=== PATIENT | male | born 1960 | race African-American/Black ===

== ENCOUNTER 2019-05-04 11:50 | Outpatient (CLI) | payer MEDICARE, SELFPAY ==
--- NOTE | ~2019-05-04 | XR_ITS ---
XR hip RT min 3V w AP pelvis DATE: 05/04/2019 12:17 INDICATION: Right hip pain for 5 days. No known injury. TECHNIQUE: AP pelvis. AP and lateral views of right hip COMPARISON: None FINDINGS: There is prominent calcification of the internal iliac arteries and branches bilaterally as well as prominent femoral artery calcifications. No pelvic or sacral fracture or bone destruction is evident. The pubic symphysis and sacroiliac joint s are intact. There is bilateral hip osteoarthritis, greater on the right. No fracture or dislocation, avascular ne crosis or bone destruction of the right hip is detected. IMPRESSION: Bilateral hip osteoarthritis, right greater than left Reviewed, dictated and finalized at location B.
== END 2019-05-04 11:51 | disposition home or self-care (01) ==
LOC: CHSIMG 11:56
PROVIDERS: PCP Internal Medicine; Visit Provider Internal Medicine
DX: M25.551 Pain in right hip (principal)
CPT/HCPCS: 73502

== ENCOUNTER 2019-08-01 10:02 | Outpatient (CLI) | payer SELFPAY | END 2019-08-01 10:03 | disposition home or self-care (01) | LOC: CHSOUTPT 10:11 | PROVIDERS: PCP Internal Medicine | DX: Z71.3 Dietary counseling and surveillance (principal) | CPT/HCPCS: 99199 ==

== ENCOUNTER 2019-10-12 08:59 | Outpatient (CLI) | payer MEDICARE, SELFPAY ==
[2019-10-12 09:12] LABS: Hematocrit 43.6 % (40.0-54.0); Hemoglobin 14.3 g/dL (14.0-18.0); Mean Corpuscular HGB Conc 32.8 g/dL (32.0-36.0); Mean Corpuscular Hemoglobin 29.2 pg (27.0-31.0); Mean Corpuscular Volume 89.2 fL (78.0-102.0); Mean Platelet Volume 9.4 fl (8.7-11.0); Platelet Count Result 166 K/mm3 (150-420); Red Blood Count 4.89 M/mm3 (4.70-6.10); White Blood Count 4.4 K/mm3 (4.8-10.8)
[2019-10-12 09:34] LABS: Albumin Level 4.2 g/dL (3.4-5.0); Anion Gap 9 mmol/L (8-16); Blood Urea Nitrogen 26 mg/dL (7-18); Calcium 9.3 mg/dL (8.5-10.1); Carbon Dioxide 24 mmol/L (21-32); Chloride 108 mmol/L (98-108); Estimated Glomerular Filt Rate 41; Glucose 75 mg/dL (70-99); Osmolality Calculated 295 mOsm/kg (285-295); Phosphorus 2.6 mg/dL (2.6-4.7); Potassium 4.4 mmol/L (3.5-5.1); Sodium 141 mmol/L (136-145)
[2019-10-12 09:47] LABS: Band Neutrophils Percent 0 % (0-6); Basophils Percent Manual 0 % (0-1); Eosinophils Percent Manual 0 % (1-6); Lymphocytes Absolute Manual 0.61 K/mm3 (1.1-4.5); Lymphocytes Percent Manual 14 % (18-44); Metamyelocytes Percent 2 %; Monocytes Absolute Manual 0.26 K/mm3 (0.1-0.90); Monocytes Percent Manual 6 % (3-9); Myelocytes Percent 3 %; Neutrophils Percent Manual 75 % (46-73); Platelet Estimate Adequate (Adequate); Total Cells Counted 100
[2019-10-12 09:52] LABS: Total Protein Urine Random 46.4 mg/dL (0.0-11.9)
[2019-10-15 21:26] LABS: Tacrolimus Prograf 4.5 mcg/L
== END 2019-10-12 09:00 | disposition home or self-care (01) ==
PROVIDERS: PCP Internal Medicine
DX: Z94.0 Kidney transplant status (principal); N39.0 Urinary tract infection, site not specified
CPT/HCPCS: 36415; 80069; 80197; 82570; 84156; 85025; 87799

== ENCOUNTER 2019-10-26 08:15 | Outpatient (CLI) | payer MEDICARE, SELFPAY ==
[2019-10-26 08:26] LABS: Hematocrit 45.6 % (40.0-54.0); Hemoglobin 14.8 g/dL (14.0-18.0); Mean Corpuscular HGB Conc 32.5 g/dL (32.0-36.0); Mean Corpuscular Hemoglobin 28.9 pg (27.0-31.0); Mean Corpuscular Volume 89.1 fL (78.0-102.0); Mean Platelet Volume 9.3 fl (8.7-11.0); Platelet Count Result 150 K/mm3 (150-420); Red Blood Count 5.12 M/mm3 (4.70-6.10); Red Cell Distribution Width 14.1 % (11.6-14.4); White Blood Count 4.3 K/mm3 (4.8-10.8)
[2019-10-26 08:47] LABS: Creatinine Urine 143.13 mg/dL (40-278); Total Protein Urine Random 33.8 mg/dL (0.0-11.9)
[2019-10-26 08:51] LABS: Band Neutrophils Percent 5 % (0-6); Basophils Percent Manual 0 % (0-1); Eosinophils Absolute Manual 0.04 K/mm3 (0.02-0.5); Eosinophils Percent Manual 1 % (1-6); Lymphocytes Absolute Manual 0.43 K/mm3 (1.1-4.5); Lymphocytes Percent Manual 10 % (18-44); Metamyelocytes Percent 3 %; Monocytes Percent Manual 7 % (3-9); Neutrophils Absolute Manual 3.39 K/mm3 (1.3-6.7); Neutrophils Percent Manual 74 % (46-73); Total Cells Counted 100
[2019-10-26 08:52] LABS: Platelet Estimate Adequate (Adequate)
[2019-10-26 08:57] LABS: Albumin Level 4.5 g/dL (3.4-5.0); Anion Gap 11 mmol/L (8-16); Blood Urea Nitrogen 30 mg/dL (7-18); Calcium 9.5 mg/dL (8.5-10.1); Carbon Dioxide 25 mmol/L (21-32); Chloride 107 mmol/L (98-108); Estimated Glomerular Filt Rate 38; Glucose 85 mg/dL (70-99); Osmolality Calculated 301 mOsm/kg (285-295); Phosphorus 2.5 mg/dL (2.6-4.7); Potassium 4.2 mmol/L (3.5-5.1); Sodium 143 mmol/L (136-145)
[2019-10-30 06:42] LABS: Tacrolimus Prograf 6.4 mcg/L
== END 2019-10-26 08:16 | disposition home or self-care (01) ==
LOC: CHSLAB 08:17
PROVIDERS: PCP Internal Medicine
DX: Z94.0 Kidney transplant status (principal); N39.0 Urinary tract infection, site not specified
CPT/HCPCS: 36415; 80069; 80197; 82570; 84156; 85025

== ENCOUNTER 2019-11-09 08:46 | Outpatient (CLI) | payer MEDICARE, SELFPAY ==
[2019-11-09 09:07] LABS: Hematocrit 45.6 % (40.0-54.0); Hemoglobin 14.7 g/dL (14.0-18.0); Mean Corpuscular HGB Conc 32.2 g/dL (32.0-36.0); Mean Corpuscular Hemoglobin 28.4 pg (27.0-31.0); Mean Platelet Volume 9.9 fl (8.7-11.0); Platelet Count Result 163 K/mm3 (150-420); Red Blood Count 5.18 M/mm3 (4.70-6.10); Red Cell Distribution Width 14.1 % (11.6-14.4); White Blood Count 3.8 K/mm3 (4.8-10.8)
[2019-11-09 09:39] LABS: Band Neutrophils Percent 0 % (0-6); Basophils Absolute Manual 0.03 K/mm3 (0-0.1); Basophils Percent Manual 1 % (0-1); Eosinophils Absolute Manual 0.03 K/mm3 (0.02-0.5); Eosinophils Percent Manual 1 % (1-6); Hemoglobin A1C 5.9 % (<5.7); Lymphocytes Absolute Manual 0.38 K/mm3 (1.1-4.5); Lymphocytes Percent Manual 10 % (18-44); Metamyelocytes Percent 0 %; Monocytes Absolute Manual 0.22 K/mm3 (0.1-0.90); Monocytes Percent Manual 6 % (3-9); Neutrophils Percent Manual 79 % (46-73); Total Cells Counted 100
[2019-11-09 09:40] LABS: Myelocytes Percent 3 %; Platelet Estimate Adequate (Adequate)
[2019-11-09 10:26] LABS: Alanine Aminotransferase 33 U/L (16-63); Albumin Level 4.7 g/dL (3.4-5.0); Alkaline Phosphatase 95 U/L (46-116); Anion Gap 9 mmol/L (8-16); Aspartate Amino Transferase 17 U/L (15-37); Bilirubin Direct 0.3 mg/dL (0-0.2); Bilirubin,Total 1.4 mg/dL (0.00-1.00); Blood Urea Nitrogen 24 mg/dL (7-18); Calcium 9.5 mg/dL (8.5-10.1); Carbon Dioxide 24 mmol/L (21-32); Chloride 108 mmol/L (98-108); Cholesterol 124 mg/dL (0-200); Estimated Glomerular Filt Rate 44; Glucose 86 mg/dL (70-99); HDL Direct 45 mg/dL (40-60); LDL Cholesterol Calculated 58 mg/dL (<130); Osmolality Calculated 295 mOsm/kg (285-295); Phosphorus 2.5 mg/dL (2.6-4.7); Potassium 4.1 mmol/L (3.5-5.1); Sodium 141 mmol/L (136-145); Triglycerides 104 mg/dL (0-150)
[2019-11-12 07:59] LABS: BK Virus Specimen Source Plasma
[2019-11-12 08:20] LABS: Tacrolimus Prograf 8.2 mcg/L
== END 2019-11-09 08:47 | disposition home or self-care (01) ==
LOC: CHSLAB 08:50
PROVIDERS: PCP Internal Medicine
DX: Z94.0 Kidney transplant status (principal); E10.65 Type 1 diabetes mellitus with hyperglycemia; E78.2 Mixed hyperlipidemia; N39.0 Urinary tract infection, site not specified
CPT/HCPCS: 36415; 80053; 80061; 80197; 82248; 82570; 83036; 84100; 84156; 85025; 87799

== ENCOUNTER 2019-11-23 08:07 | Outpatient (CLI) | payer MEDICARE, SELFPAY ==
[2019-11-23 08:55] LABS: Hemoglobin A1C 6.2 % (<5.7)
[2019-11-23 09:43] LABS: Alanine Aminotransferase 29 U/L (16-63); Albumin Level 4.4 g/dL (3.4-5.0); Alkaline Phosphatase 85 U/L (46-116); Anion Gap 10 mmol/L (8-16); Aspartate Amino Transferase 14 U/L (15-37); Bilirubin,Total 1.2 mg/dL (0.00-1.00); Blood Urea Nitrogen 29 mg/dL (7-18); Calcium 9.4 mg/dL (8.5-10.1); Carbon Dioxide 24 mmol/L (21-32); Chloride 107 mmol/L (98-108); Cholesterol 126 mg/dL (0-200); Estimated Glomerular Filt Rate 44; Glucose 76 mg/dL (70-99); HDL Direct 54 mg/dL (40-60); LDL Cholesterol Calculated 58 mg/dL (<130); Osmolality Calculated 296 mOsm/kg (285-295); Phosphorus 2.8 mg/dL (2.6-4.7); Potassium 4.2 mmol/L (3.5-5.1); Sodium 141 mmol/L (136-145); Total Protein 6.7 g/dL (6.4-8.2); Triglycerides 70 mg/dL (0-150)
[2019-11-23 14:38] LABS: Hematocrit 43.4 % (40.0-54.0); Mean Corpuscular HGB Conc 32.3 g/dL (32.0-36.0); Mean Corpuscular Hemoglobin 28.9 pg (27.0-31.0); Mean Corpuscular Volume 89.7 fL (78.0-102.0); Mean Platelet Volume 10.2 fl (8.7-11.0); Platelet Count Result 183 K/mm3 (150-420); Red Blood Count 4.84 M/mm3 (4.70-6.10); Red Cell Distribution Width 14.3 % (11.6-14.4); White Blood Count 4.3 K/mm3 (4.8-10.8)
[2019-11-23 14:58] LABS: Neutrophils Percent Manual 81 % (46-73); Total Cells Counted 100
[2019-11-23 14:59] LABS: Band Neutrophils Percent 3 % (0-6); Basophils Percent Manual 0 % (0-1); Eosinophils Percent Manual 0 % (1-6); Lymphocytes Absolute Manual 0.38 K/mm3 (1.1-4.5); Lymphocytes Percent Manual 9 % (18-44); Monocytes Percent Manual 7 % (3-9); Neutrophils Absolute Manual 3.61 K/mm3 (1.3-6.7); Nucleated Red Blood Cells 5 %; Platelet Estimate Adequate (Adequate)
== END 2019-11-23 08:08 | disposition home or self-care (01) ==
LOC: CHSLAB 08:11
PROVIDERS: PCP Internal Medicine
DX: Z94.0 Kidney transplant status (principal); E78.2 Mixed hyperlipidemia; E10.65 Type 1 diabetes mellitus with hyperglycemia
CPT/HCPCS: 36415; 80053; 80061; 83036; 84100; 85025

== ENCOUNTER 2019-12-07 08:34 | Outpatient (CLI) | payer MEDICARE, SELFPAY ==
[2019-12-07 08:49] LABS: Hematocrit 42.1 % (40.0-54.0); Hemoglobin 13.6 g/dL (14.0-18.0); Mean Corpuscular HGB Conc 32.3 g/dL (32.0-36.0); Mean Corpuscular Hemoglobin 28.8 pg (27.0-31.0); Mean Corpuscular Volume 89.2 fL (78.0-102.0); Mean Platelet Volume 9.4 fl (8.7-11.0); Platelet Count Result 152 K/mm3 (150-420); Red Blood Count 4.72 M/mm3 (4.70-6.10); Red Cell Distribution Width 14.2 % (11.6-14.4); White Blood Count 4.2 K/mm3 (4.8-10.8)
[2019-12-07 09:11] LABS: Band Neutrophils Percent 0 % (0-6); Basophils Percent Manual 0 % (0-1); Eosinophils Percent Manual 0 % (1-6); Lymphocytes Absolute Manual 0.84 K/mm3 (1.1-4.5); Lymphocytes Percent Manual 20 % (18-44); Monocytes Absolute Manual 0.25 K/mm3 (0.1-0.90); Monocytes Percent Manual 6 % (3-9); Myelocytes Percent 3 %; Neutrophils Absolute Manual 2.98 K/mm3 (1.3-6.7); Neutrophils Percent Manual 71 % (46-73); Nucleated Red Blood Cells 2 %; Total Cells Counted 100
[2019-12-07 09:14] LABS: Platelet Estimate Adequate (Adequate)
[2019-12-07 09:20] LABS: Creatinine Urine 101.25 mg/dL (40-278); Total Protein Urine Random 24.3 mg/dL (0.0-11.9)
[2019-12-07 09:33] LABS: Albumin Level 4.3 g/dL (3.4-5.0); Anion Gap 10 mmol/L (8-16); Blood Urea Nitrogen 32 mg/dL (7-18); Calcium 9.5 mg/dL (8.5-10.1); Carbon Dioxide 24 mmol/L (21-32); Chloride 107 mmol/L (98-108); Estimated Glomerular Filt Rate 42; Glucose 97 mg/dL (70-99); Osmolality Calculated 298 mOsm/kg (285-295); Phosphorus 2.3 mg/dL (2.6-4.7); Potassium 4.2 mmol/L (3.5-5.1); Sodium 141 mmol/L (136-145)
[2019-12-10 18:02] LABS: BK Virus Specimen Source Plasma
== END 2019-12-07 08:35 | disposition home or self-care (01) ==
PROVIDERS: PCP Internal Medicine
DX: Z94.0 Kidney transplant status (principal); E78.2 Mixed hyperlipidemia; E10.65 Type 1 diabetes mellitus with hyperglycemia; Z79.899 Other long term (current) drug therapy
CPT/HCPCS: 36415; 80069; 80197; 82570; 84156; 85025; 87799

== ENCOUNTER 2019-12-21 08:49 | Outpatient (CLI) | payer MEDICARE, SELFPAY ==
[2019-12-21 09:00] LABS: Hematocrit 40.3 % (40.0-54.0); Hemoglobin 12.8 g/dL (14.0-18.0); Mean Corpuscular HGB Conc 31.8 g/dL (32.0-36.0); Mean Corpuscular Hemoglobin 28.8 pg (27.0-31.0); Mean Corpuscular Volume 90.8 fL (78.0-102.0); Mean Platelet Volume 9.4 fl (8.7-11.0); Platelet Count Result 141 K/mm3 (150-420); Red Blood Count 4.44 M/mm3 (4.70-6.10); Red Cell Distribution Width 14.4 % (11.6-14.4); White Blood Count 4.2 K/mm3 (4.8-10.8)
[2019-12-21 09:38] LABS: Alanine Aminotransferase 37 U/L (16-63); Albumin Level 4.2 g/dL (3.4-5.0); Alkaline Phosphatase 76 U/L (46-116); Anion Gap 11 mmol/L (8-16); Aspartate Amino Transferase 13 U/L (15-37); Blood Urea Nitrogen 29 mg/dL (7-18); Calcium 9.5 mg/dL (8.5-10.1); Carbon Dioxide 23 mmol/L (21-32); Chloride 108 mmol/L (98-108); Estimated Glomerular Filt Rate 45; Glucose 78 mg/dL (70-99); Osmolality Calculated 298 mOsm/kg (285-295); Potassium 4.4 mmol/L (3.5-5.1); Sodium 142 mmol/L (136-145); Total Protein 6.5 g/dL (6.4-8.2)
[2019-12-21 09:56] LABS: Band Neutrophils Percent 0 % (0-6); Basophils Percent Manual 0 % (0-1); Eosinophils Percent Manual 0 % (1-6); Lymphocytes Percent Manual 12 % (18-44); Metamyelocytes Percent 2 %; Monocytes Absolute Manual 0.25 K/mm3 (0.1-0.90); Monocytes Percent Manual 6 % (3-9); Myelocytes Percent 2 %; Neutrophils Absolute Manual 3.27 K/mm3 (1.3-6.7); Neutrophils Percent Manual 78 % (46-73); Total Cells Counted 100
[2019-12-21 09:57] LABS: Platelet Estimate Adequate (Adequate)
[2019-12-23 16:07] LABS: Tacrolimus Prograf 6.5 mcg/L
== END 2019-12-21 08:50 | disposition home or self-care (01) ==
PROVIDERS: PCP Internal Medicine
DX: Z94.0 Kidney transplant status (principal); E10.65 Type 1 diabetes mellitus with hyperglycemia; E78.2 Mixed hyperlipidemia; Z79.899 Other long term (current) drug therapy
CPT/HCPCS: 36415; 80053; 80197; 85025

== ENCOUNTER 2020-01-04 08:25 | Outpatient (CLI) | payer MEDICARE, SELFPAY ==
[2020-01-04 08:45] LABS: Hematocrit 39.2 % (40.0-54.0); Hemoglobin 12.4 g/dL (14.0-18.0); Mean Corpuscular HGB Conc 31.6 g/dL (32.0-36.0); Mean Corpuscular Hemoglobin 28.7 pg (27.0-31.0); Mean Corpuscular Volume 90.7 fL (78.0-102.0); Mean Platelet Volume 10.1 fl (8.7-11.0); Platelet Count Result 167 K/mm3 (150-420); Red Blood Count 4.32 M/mm3 (4.70-6.10); Red Cell Distribution Width 14.6 % (11.6-14.4); White Blood Count 4.2 K/mm3 (4.8-10.8)
[2020-01-04 09:28] LABS: Albumin Level 4.4 g/dL (3.4-5.0); Anion Gap 11 mmol/L (8-16); Blood Urea Nitrogen 26 mg/dL (7-18); Calcium 9.3 mg/dL (8.5-10.1); Carbon Dioxide 23 mmol/L (21-32); Chloride 107 mmol/L (98-108); Estimated Glomerular Filt Rate 42; Glucose 91 mg/dL (70-99); Osmolality Calculated 296 mOsm/kg (285-295); Phosphorus 2.8 mg/dL (2.6-4.7); Potassium 4.3 mmol/L (3.5-5.1); Sodium 141 mmol/L (136-145)
[2020-01-04 09:29] LABS: Band Neutrophils Percent 0 % (0-6); Basophils Absolute Manual 0.04 K/mm3 (0-0.1); Basophils Percent Manual 1 % (0-1); Eosinophils Absolute Manual 0.04 K/mm3 (0.02-0.5); Eosinophils Percent Manual 1 % (1-6); Lymphocytes Absolute Manual 0.37 K/mm3 (1.1-4.5); Lymphocytes Percent Manual 9 % (18-44); Metamyelocytes Percent 0 %; Monocytes Absolute Manual 0.21 K/mm3 (0.1-0.90); Monocytes Percent Manual 5 % (3-9); Myelocytes Percent 2 %; Neutrophils Absolute Manual 3.48 K/mm3 (1.3-6.7); Neutrophils Percent Manual 83 % (46-73); Platelet Estimate Adequate (Adequate); Total Cells Counted 100
[2020-01-04 09:58] LABS: Total Protein Urine Random 23.8 mg/dL (0.0-11.9)
[2020-01-08 11:03] LABS: Tacrolimus Prograf 9.9 mcg/L
[2020-01-08 12:10] LABS: BK Virus Specimen Source Whole Blood
== END 2020-01-04 08:26 | disposition home or self-care (01) ==
PROVIDERS: PCP Internal Medicine
DX: Z94.0 Kidney transplant status (principal); E10.65 Type 1 diabetes mellitus with hyperglycemia; E78.2 Mixed hyperlipidemia; N39.0 Urinary tract infection, site not specified; Z79.899 Other long term (current) drug therapy
CPT/HCPCS: 36415; 80069; 80197; 82570; 84156; 85025; 87799

== ENCOUNTER 2020-01-18 08:43 | Outpatient (CLI) | payer MEDICARE, SELFPAY ==
[2020-01-18 08:56] LABS: Hematocrit 39.3 % (40.0-54.0); Hemoglobin 12.7 g/dL (14.0-18.0); Mean Corpuscular HGB Conc 32.3 g/dL (32.0-36.0); Mean Corpuscular Hemoglobin 29.2 pg (27.0-31.0); Mean Corpuscular Volume 90.3 fL (78.0-102.0); Platelet Count Result 147 K/mm3 (150-420); Red Blood Count 4.35 M/mm3 (4.70-6.10); Red Cell Distribution Width 14.7 % (11.6-14.4); White Blood Count 4.7 K/mm3 (4.8-10.8)
[2020-01-18 09:16] LABS: Band Neutrophils Percent 0 % (0-6); Eosinophils Percent Manual 0 % (1-6); Lymphocytes Absolute Manual 0.47 K/mm3 (1.1-4.5); Lymphocytes Percent Manual 10 % (18-44); Monocytes Absolute Manual 0.23 K/mm3 (0.1-0.90); Monocytes Percent Manual 5 % (3-9); Neutrophils Absolute Manual 3.99 K/mm3 (1.3-6.7); Neutrophils Percent Manual 85 % (46-73); Total Cells Counted 100
[2020-01-18 09:17] LABS: Platelet Estimate Adequate (Adequate)
[2020-01-18 10:41] LABS: Albumin Level 4.4 g/dL (3.4-5.0); Anion Gap 12 mmol/L (8-16); Blood Urea Nitrogen 31 mg/dL (7-18); Calcium 9.6 mg/dL (8.5-10.1); Carbon Dioxide 23 mmol/L (21-32); Chloride 107 mmol/L (98-108); Estimated Glomerular Filt Rate 44; Glucose 104 mg/dL (70-99); Osmolality Calculated 300 mOsm/kg (285-295); Phosphorus 2.6 mg/dL (2.6-4.7); Potassium 4.4 mmol/L (3.5-5.1); Sodium 142 mmol/L (136-145)
[2020-01-21 06:59] LABS: Tacrolimus Prograf 7.7 mcg/L
== END 2020-01-18 08:44 | disposition home or self-care (01) ==
LOC: CHSLAB 08:46
PROVIDERS: PCP Internal Medicine
DX: Z94.0 Kidney transplant status (principal); E78.2 Mixed hyperlipidemia; E10.65 Type 1 diabetes mellitus with hyperglycemia; Z79.899 Other long term (current) drug therapy
CPT/HCPCS: 36415; 80069; 80197; 85025

== ENCOUNTER 2020-02-01 08:13 | Outpatient (CLI) | payer MEDICARE, SELFPAY ==
[2020-02-01 08:29] LABS: Basophils Absolute Auto 0.01 K/mm3 (0.00-0.10); Basophils Percent Auto 0.2 % (0.0-1.0); Eosinophils Absolute Auto 0.01 K/mm3 (0.02-0.50); Eosinophils Percent Auto 0.2 % (1.0-6.0); Hematocrit 40.2 % (40.0-54.0); Immature Granulocyte Absolute 0.11 K/mm3 (0.00-0.00); Immature Granulocyte Percent A 1.9 % (0.0-0.0); Lymphocytes Absolute Auto 0.49 K/mm3 (1.10-4.50); Lymphocytes Percent Auto 8.4 % (18.0-42.0); Mean Corpuscular HGB Conc 32.3 g/dL (32.0-36.0); Mean Corpuscular Hemoglobin 29.2 pg (27.0-31.0); Mean Corpuscular Volume 90.3 fL (78.0-102.0); Mean Platelet Volume 9.4 fl (8.7-11.0); Monocytes Percent Auto 6.8 % (2.0-11.0); Neutrophils Absolute Auto 4.8 K/mm3 (1.7-7.2); Neutrophils Percent Auto 82.5 % (50.0-70.0); Platelet Count Result 159 K/mm3 (150-420); Red Blood Count 4.45 M/mm3 (4.70-6.10); Red Cell Distribution Width 14.6 % (11.6-14.4); White Blood Count 5.8 K/mm3 (4.8-10.8)
[2020-02-01 08:41] LABS: Creatinine Urine 86.72 mg/dL (40-278); Total Protein Urine Random 19.4 mg/dL (0.0-11.9); Ur Ttl Prot Creatinine Ratio 0.22 mg/mg (0-0.20)
[2020-02-01 09:29] LABS: Albumin Level 4.4 g/dL (3.4-5.0); Anion Gap 8 mmol/L (8-16); Blood Urea Nitrogen 30 mg/dL (7-18); Calcium 9.5 mg/dL (8.5-10.1); Carbon Dioxide 25 mmol/L (21-32); Chloride 106 mmol/L (98-108); Estimated Glomerular Filt Rate 41; Glucose 77 mg/dL (70-99); Osmolality Calculated 293 mOsm/kg (285-295); Phosphorus 2.9 mg/dL (2.6-4.7); Potassium 4.3 mmol/L (3.5-5.1); Sodium 139 mmol/L (136-145)
[2020-02-04 07:13] LABS: BK Virus Specimen Source Whole Blood
[2020-02-04 08:28] LABS: Tacrolimus Prograf 6.9 mcg/L
== END 2020-02-01 08:14 | disposition home or self-care (01) ==
LOC: CHSLAB 08:14
PROVIDERS: PCP Internal Medicine
DX: Z94.0 Kidney transplant status (principal); E10.65 Type 1 diabetes mellitus with hyperglycemia; E78.2 Mixed hyperlipidemia; Z79.899 Other long term (current) drug therapy
CPT/HCPCS: 36415; 80069; 80197; 82570; 84156; 85025; 87799

== ENCOUNTER 2020-02-15 08:18 | Outpatient (CLI) | payer MEDICARE, SELFPAY ==
[2020-02-15 08:31] LABS: Basophils Absolute Auto 0.01 K/mm3 (0.00-0.10); Basophils Percent Auto 0.2 % (0.0-1.0); Eosinophils Absolute Auto 0.02 K/mm3 (0.02-0.50); Eosinophils Percent Auto 0.3 % (1.0-6.0); Hematocrit 40.3 % (40.0-54.0); Immature Granulocyte Absolute 0.08 K/mm3 (0.00-0.00); Immature Granulocyte Percent A 1.4 % (0.0-0.0); Lymphocytes Absolute Auto 0.45 K/mm3 (1.10-4.50); Lymphocytes Percent Auto 7.7 % (18.0-42.0); Mean Corpuscular HGB Conc 32.3 g/dL (32.0-36.0); Mean Corpuscular Hemoglobin 28.8 pg (27.0-31.0); Mean Corpuscular Volume 89.4 fL (78.0-102.0); Mean Platelet Volume 9.3 fl (8.7-11.0); Monocytes Absolute Auto 0.37 K/mm3 (0.10-0.90); Monocytes Percent Auto 6.3 % (2.0-11.0); Neutrophils Percent Auto 84.1 % (50.0-70.0); Platelet Count Result 154 K/mm3 (150-420); Red Blood Count 4.51 M/mm3 (4.70-6.10); Red Cell Distribution Width 14.6 % (11.6-14.4); White Blood Count 5.9 K/mm3 (4.8-10.8)
[2020-02-15 09:08] LABS: Albumin Level 4.5 g/dL (3.4-5.0); Anion Gap 10 mmol/L (8-16); Blood Urea Nitrogen 26 mg/dL (7-18); Calcium 9.6 mg/dL (8.5-10.1); Carbon Dioxide 24 mmol/L (21-32); Chloride 104 mmol/L (98-108); Estimated Glomerular Filt Rate 40; Glucose 82 mg/dL (70-99); Osmolality Calculated 289 mOsm/kg (285-295); Phosphorus 3.1 mg/dL (2.6-4.7); Potassium 4.1 mmol/L (3.5-5.1); Sodium 138 mmol/L (136-145)
[2020-02-19 07:38] LABS: Tacrolimus Prograf 7.7 mcg/L
== END 2020-02-15 08:19 | disposition home or self-care (01) ==
LOC: CHSLAB 08:20
PROVIDERS: PCP Internal Medicine
DX: Z94.0 Kidney transplant status (principal); E10.65 Type 1 diabetes mellitus with hyperglycemia; Z79.899 Other long term (current) drug therapy; N39.0 Urinary tract infection, site not specified; E78.2 Mixed hyperlipidemia
CPT/HCPCS: 36415; 80069; 80197; 85025

== ENCOUNTER 2020-02-29 08:30 | Outpatient (CLI) | payer MEDICARE, SELFPAY ==
[2020-02-29 08:58] LABS: Eosinophils Absolute Auto 0.02 K/mm3 (0.02-0.50); Eosinophils Percent Auto 0.4 % (1.0-6.0); Hematocrit 40.3 % (40.0-54.0); Hemoglobin 13.1 g/dL (14.0-18.0); Immature Granulocyte Absolute 0.09 K/mm3 (0.00-0.00); Immature Granulocyte Percent A 1.6 % (0.0-0.0); Lymphocytes Absolute Auto 0.43 K/mm3 (1.10-4.50); Lymphocytes Percent Auto 7.9 % (18.0-42.0); Mean Corpuscular HGB Conc 32.5 g/dL (32.0-36.0); Mean Corpuscular Hemoglobin 28.7 pg (27.0-31.0); Mean Corpuscular Volume 88.4 fL (78.0-102.0); Mean Platelet Volume 9.3 fl (8.7-11.0); Monocytes Percent Auto 5.5 % (2.0-11.0); Neutrophils Absolute Auto 4.6 K/mm3 (1.7-7.2); Neutrophils Percent Auto 84.6 % (50.0-70.0); Platelet Count Result 147 K/mm3 (150-420); Red Blood Count 4.56 M/mm3 (4.70-6.10); Red Cell Distribution Width 14.6 % (11.6-14.4); White Blood Count 5.5 K/mm3 (4.8-10.8)
[2020-02-29 09:02] LABS: Creatinine Urine 97.59 mg/dL (40-278); Total Protein Urine Random 27.6 mg/dL (0.0-11.9); Ur Ttl Prot Creatinine Ratio 0.28 mg/mg (0-0.20)
[2020-02-29 09:18] LABS: Hemoglobin A1C 5.8 % (<5.7)
[2020-02-29 09:37] LABS: Alanine Aminotransferase 21 U/L (16-63); Albumin Level 4.5 g/dL (3.4-5.0); Alkaline Phosphatase 74 U/L (46-116); Anion Gap 10 mmol/L (8-16); Aspartate Amino Transferase 16 U/L (15-37); Bilirubin,Total 0.9 mg/dL (0.00-1.00); Blood Urea Nitrogen 23 mg/dL (7-18); Calcium 9.5 mg/dL (8.5-10.1); Carbon Dioxide 24 mmol/L (21-32); Chloride 104 mmol/L (98-108); Cholesterol 134 mg/dL (0-200); Estimated Glomerular Filt Rate 46; Glucose 95 mg/dL (70-99); HDL Direct 52 mg/dL (40-60); LDL Cholesterol Calculated 55 mg/dL (<130); Osmolality Calculated 289 mOsm/kg (285-295); Phosphorus 2.8 mg/dL (2.6-4.7); Sodium 138 mmol/L (136-145); Total Protein 6.9 g/dL (6.4-8.2); Triglycerides 135 mg/dL (0-150); Uric Acid 3.7 mg/dL (3.5-7.2)
[2020-02-29 09:40] LABS: CRP < 0.5 mg/dL (0.0-0.9)
[2020-02-29 09:57] LABS: Erythrocyte Sedimentation Rate 2 mm/hr (0-20)
[2020-03-02 10:53] LABS: BK Virus Specimen Source Whole Blood
[2020-03-02 19:58] LABS: Tacrolimus Prograf 4.9 mcg/L
[2020-03-05 14:12] LABS: Complement C3 97 mg/dL (82-185)
== END 2020-02-29 08:31 | disposition home or self-care (01) ==
PROVIDERS: PCP Internal Medicine
DX: Z94.0 Kidney transplant status (principal); E78.2 Mixed hyperlipidemia; E10.65 Type 1 diabetes mellitus with hyperglycemia; M32.9 Systemic lupus erythematosus, unspecified; M10.9 Gout, unspecified; Z79.899 Other long term (current) drug therapy; G80.9 Cerebral palsy, unspecified
CPT/HCPCS: 36415; 80053; 80061; 80069; 80197; 82570; 83036; 84156; 84550; 85025; 85652; 86140; 86160; 86225; 87799

== ENCOUNTER 2020-03-14 08:48 | Outpatient (CLI) | payer MEDICARE, SELFPAY ==
[2020-03-14 08:59] LABS: Basophils Absolute Auto 0.02 K/mm3 (0.00-0.10); Basophils Percent Auto 0.4 % (0.0-1.0); Eosinophils Absolute Auto 0.01 K/mm3 (0.02-0.50); Eosinophils Percent Auto 0.2 % (1.0-6.0); Hematocrit 41.2 % (40.0-54.0); Hemoglobin 13.4 g/dL (14.0-18.0); Immature Granulocyte Percent A 1.8 % (0.0-0.0); Mean Corpuscular HGB Conc 32.5 g/dL (32.0-36.0); Mean Corpuscular Hemoglobin 28.9 pg (27.0-31.0); Mean Platelet Volume 8.9 fl (8.7-11.0); Monocytes Percent Auto 7.2 % (2.0-11.0); Neutrophils Absolute Auto 4.5 K/mm3 (1.7-7.2); Neutrophils Percent Auto 81.4 % (50.0-70.0); Platelet Count Result 152 K/mm3 (150-420); Red Blood Count 4.63 M/mm3 (4.70-6.10); Red Cell Distribution Width 14.5 % (11.6-14.4); White Blood Count 5.5 K/mm3 (4.8-10.8)
[2020-03-14 09:24] LABS: Albumin Level 4.4 g/dL (3.4-5.0); Anion Gap 11 mmol/L (8-16); Blood Urea Nitrogen 24 mg/dL (7-18); Calcium 9.5 mg/dL (8.5-10.1); Carbon Dioxide 25 mmol/L (21-32); Chloride 104 mmol/L (98-108); Estimated Glomerular Filt Rate 44; Glucose 100 mg/dL (70-99); Osmolality Calculated 294 mOsm/kg (285-295); Phosphorus 2.7 mg/dL (2.6-4.7); Potassium 4.1 mmol/L (3.5-5.1); Sodium 140 mmol/L (136-145)
[2020-03-16 17:36] LABS: Tacrolimus Prograf 9.2 mcg/L
== END 2020-03-14 08:49 | disposition home or self-care (01) ==
LOC: CHSLAB 08:50
PROVIDERS: PCP Internal Medicine; Visit Provider Internal Medicine
DX: Z94.0 Kidney transplant status (principal); E10.65 Type 1 diabetes mellitus with hyperglycemia; E78.2 Mixed hyperlipidemia; Z79.899 Other long term (current) drug therapy
CPT/HCPCS: 36415; 80069; 80197; 85025

== ENCOUNTER 2020-03-28 08:19 | Outpatient (CLI) | payer MEDICARE, SELFPAY ==
[2020-03-28 08:39] LABS: Basophils Absolute Auto 0.01 K/mm3 (0.00-0.10); Basophils Percent Auto 0.2 % (0.0-1.0); Eosinophils Absolute Auto 0.01 K/mm3 (0.02-0.50); Eosinophils Percent Auto 0.2 % (1.0-6.0); Hematocrit 41.8 % (40.0-54.0); Hemoglobin 13.9 g/dL (14.0-18.0); Immature Granulocyte Absolute 0.16 K/mm3 (0.00-0.00); Immature Granulocyte Percent A 2.8 % (0.0-0.0); Lymphocytes Absolute Auto 0.46 K/mm3 (1.10-4.50); Mean Corpuscular HGB Conc 33.3 g/dL (32.0-36.0); Mean Corpuscular Hemoglobin 29.3 pg (27.0-31.0); Mean Platelet Volume 9.2 fl (8.7-11.0); Monocytes Absolute Auto 0.43 K/mm3 (0.10-0.90); Monocytes Percent Auto 7.5 % (2.0-11.0); Neutrophils Absolute Auto 4.7 K/mm3 (1.7-7.2); Neutrophils Percent Auto 81.3 % (50.0-70.0); Platelet Count Result 164 K/mm3 (150-420); Red Blood Count 4.75 M/mm3 (4.70-6.10); Red Cell Distribution Width 14.5 % (11.6-14.4); White Blood Count 5.8 K/mm3 (4.8-10.8)
[2020-03-28 09:24] LABS: Creatinine Urine 128.06 mg/dL (40-278); MALB Creatinine Ratio 44.5 mg/g (0-30); Microalbumin Urine Random 57.1 mg/L
[2020-03-28 09:48] LABS: Albumin Level 4.5 g/dL (3.4-5.0); Anion Gap 11 mmol/L (8-16); Blood Urea Nitrogen 28 mg/dL (7-18); Calcium 9.6 mg/dL (8.5-10.1); Carbon Dioxide 25 mmol/L (21-32); Chloride 103 mmol/L (98-108); Estimated Glomerular Filt Rate 40; Glucose 104 mg/dL (70-99); Osmolality Calculated 293 mOsm/kg (285-295); Phosphorus 2.9 mg/dL (2.6-4.7); Potassium 4.2 mmol/L (3.5-5.1); Sodium 139 mmol/L (136-145)
[2020-03-30 16:22] LABS: BK Virus Specimen Source Whole Blood
== END 2020-03-28 08:20 | disposition home or self-care (01) ==
LOC: CHSLAB 08:22
PROVIDERS: PCP Internal Medicine; Visit Provider Internal Medicine
DX: Z94.0 Kidney transplant status (principal); E10.65 Type 1 diabetes mellitus with hyperglycemia; E78.2 Mixed hyperlipidemia; Z79.899 Other long term (current) drug therapy
CPT/HCPCS: 36415; 80069; 80197; 82043; 85025; 87799

== ENCOUNTER 2020-04-11 08:35 | Outpatient (CLI) | payer MEDICARE, SELFPAY ==
[2020-04-11 08:58] LABS: Basophils Absolute Auto 0.01 K/mm3 (0.00-0.10); Basophils Percent Auto 0.2 % (0.0-1.0); Eosinophils Absolute Auto 0.03 K/mm3 (0.02-0.50); Eosinophils Percent Auto 0.5 % (1.0-6.0); Hematocrit 42.6 % (40.0-54.0); Hemoglobin 13.8 g/dL (14.0-18.0); Immature Granulocyte Absolute 0.03 K/mm3 (0.00-0.00); Immature Granulocyte Percent A 0.5 % (0.0-0.0); Lymphocytes Absolute Auto 0.48 K/mm3 (1.10-4.50); Lymphocytes Percent Auto 7.9 % (18.0-42.0); Mean Corpuscular HGB Conc 32.4 g/dL (32.0-36.0); Mean Corpuscular Hemoglobin 28.5 pg (27.0-31.0); Mean Platelet Volume 9.4 fl (8.7-11.0); Monocytes Absolute Auto 0.64 K/mm3 (0.10-0.90); Monocytes Percent Auto 10.6 % (2.0-11.0); Neutrophils Absolute Auto 4.9 K/mm3 (1.7-7.2); Neutrophils Percent Auto 80.3 % (50.0-70.0); Platelet Count Result 162 K/mm3 (150-420); Red Blood Count 4.84 M/mm3 (4.70-6.10); Red Cell Distribution Width 14.1 % (11.6-14.4)
[2020-04-11 09:41] LABS: Albumin Level 4.3 g/dL (3.4-5.0); Anion Gap 10 mmol/L (8-16); Blood Urea Nitrogen 27 mg/dL (7-18); Calcium 9.5 mg/dL (8.5-10.1); Carbon Dioxide 24 mmol/L (21-32); Chloride 105 mmol/L (98-108); Estimated Glomerular Filt Rate 40; Glucose 95 mg/dL (70-99); Osmolality Calculated 293 mOsm/kg (285-295); Phosphorus 2.6 mg/dL (2.6-4.7); Potassium 4.3 mmol/L (3.5-5.1); Sodium 139 mmol/L (136-145)
[2020-04-13 20:14] LABS: Tacrolimus Prograf 7.5 mcg/L
== END 2020-04-11 08:36 | disposition home or self-care (01) ==
LOC: CHSLAB 08:43
PROVIDERS: PCP Internal Medicine; Visit Provider Internal Medicine
DX: Z48.22 Encounter for aftercare following kidney transplant (principal); Z94.0 Kidney transplant status; E78.2 Mixed hyperlipidemia
CPT/HCPCS: 36415; 80069; 80197; 85025

== ENCOUNTER 2020-04-25 08:40 | Outpatient (CLI) | payer MEDICARE, SELFPAY ==
[2020-04-25 08:58] LABS: Eosinophils Absolute Auto 0.02 K/mm3 (0.02-0.50); Eosinophils Percent Auto 0.4 % (1.0-6.0); Hematocrit 42.1 % (40.0-54.0); Hemoglobin 13.9 g/dL (14.0-18.0); Immature Granulocyte Absolute 0.03 K/mm3 (0.00-0.00); Immature Granulocyte Percent A 0.6 % (0.0-0.0); Lymphocytes Absolute Auto 0.39 K/mm3 (1.10-4.50); Lymphocytes Percent Auto 7.5 % (18.0-42.0); Mean Corpuscular Hemoglobin 29.1 pg (27.0-31.0); Mean Corpuscular Volume 88.1 fL (78.0-102.0); Mean Platelet Volume 9.5 fl (8.7-11.0); Monocytes Absolute Auto 0.57 K/mm3 (0.10-0.90); Neutrophils Absolute Auto 4.2 K/mm3 (1.7-7.2); Neutrophils Percent Auto 80.5 % (50.0-70.0); Platelet Count Result 159 K/mm3 (150-420); Red Blood Count 4.78 M/mm3 (4.70-6.10); White Blood Count 5.2 K/mm3 (4.8-10.8)
[2020-04-25 09:14] LABS: Creatinine Urine 139.09 mg/dL (40-278); Total Protein Urine Random 43.4 mg/dL (0.0-11.9); Ur Ttl Prot Creatinine Ratio 0.31 mg/mg (0-0.20)
[2020-04-25 09:37] LABS: Albumin Level 4.4 g/dL (3.4-5.0); Anion Gap 10 mmol/L (8-16); Blood Urea Nitrogen 26 mg/dL (7-18); Calcium 9.5 mg/dL (8.5-10.1); Carbon Dioxide 27 mmol/L (21-32); Chloride 104 mmol/L (98-108); Estimated Glomerular Filt Rate 41; Glucose 99 mg/dL (70-99); Osmolality Calculated 296 mOsm/kg (285-295); Phosphorus 2.6 mg/dL (2.6-4.7); Potassium 4.3 mmol/L (3.5-5.1); Sodium 141 mmol/L (136-145)
[2020-04-27 09:18] LABS: BK Virus Specimen Source Plasma
[2020-04-29 07:54] LABS: Tacrolimus Prograf 5.3 mcg/L
== END 2020-04-25 08:41 | disposition home or self-care (01) ==
LOC: CHSLAB 08:42
PROVIDERS: PCP Internal Medicine; Visit Provider Internal Medicine
DX: Z94.0 Kidney transplant status (principal); E10.65 Type 1 diabetes mellitus with hyperglycemia; E78.2 Mixed hyperlipidemia; Z79.899 Other long term (current) drug therapy; N39.0 Urinary tract infection, site not specified
CPT/HCPCS: 36415; 80069; 80197; 82570; 84156; 85025; 87799

== ENCOUNTER 2020-05-09 08:10 | Outpatient (CLI) | payer MEDICARE, SELFPAY ==
[2020-05-09 08:26] LABS: Eosinophils Absolute Auto 0.02 K/mm3 (0.02-0.50); Eosinophils Percent Auto 0.4 % (1.0-6.0); Hematocrit 40.5 % (40.0-54.0); Hemoglobin 13.3 g/dL (14.0-18.0); Immature Granulocyte Absolute 0.02 K/mm3 (0.00-0.00); Immature Granulocyte Percent A 0.4 % (0.0-0.0); Lymphocytes Absolute Auto 0.37 K/mm3 (1.10-4.50); Lymphocytes Percent Auto 7.4 % (18.0-42.0); Mean Corpuscular HGB Conc 32.8 g/dL (32.0-36.0); Mean Corpuscular Hemoglobin 28.6 pg (27.0-31.0); Mean Corpuscular Volume 87.1 fL (78.0-102.0); Mean Platelet Volume 9.1 fl (8.7-11.0); Monocytes Absolute Auto 0.57 K/mm3 (0.10-0.90); Monocytes Percent Auto 11.5 % (2.0-11.0); Neutrophils Percent Auto 80.3 % (50.0-70.0); Platelet Count Result 163 K/mm3 (150-420); Red Blood Count 4.65 M/mm3 (4.70-6.10); Red Cell Distribution Width 14.2 % (11.6-14.4)
[2020-05-09 09:54] LABS: Albumin Level 4.2 g/dL (3.4-5.0); Anion Gap 11 mmol/L (8-16); Blood Urea Nitrogen 28 mg/dL (7-18); Calcium 9.6 mg/dL (8.5-10.1); Carbon Dioxide 23 mmol/L (21-32); Chloride 106 mmol/L (98-108); Estimated Glomerular Filt Rate 40; Glucose 106 mg/dL (70-99); Magnesium 1.6 mg/dL (1.8-2.4); Osmolality Calculated 295 mOsm/kg (285-295); Phosphorus 2.8 mg/dL (2.6-4.7); Potassium 4.1 mmol/L (3.5-5.1); Sodium 140 mmol/L (136-145)
[2020-05-11 12:52] LABS: Tacrolimus Prograf 6.5 mcg/L
== END 2020-05-09 08:11 | disposition home or self-care (01) ==
PROVIDERS: PCP Internal Medicine; Visit Provider Internal Medicine
DX: Z94.0 Kidney transplant status (principal)
CPT/HCPCS: 36415; 80069; 80197; 83735; 85025

== ENCOUNTER 2020-05-23 09:41 | Outpatient (CLI) | payer MEDICARE, SELFPAY ==
[2020-05-23 10:13] LABS: Eosinophils Absolute Auto 0.01 K/mm3 (0.02-0.50); Eosinophils Percent Auto 0.2 % (1.0-6.0); Hematocrit 41.8 % (40.0-54.0); Hemoglobin 13.2 g/dL (14.0-18.0); Immature Granulocyte Absolute 0.02 K/mm3 (0.00-0.00); Immature Granulocyte Percent A 0.4 % (0.0-0.0); Lymphocytes Absolute Auto 0.32 K/mm3 (1.10-4.50); Lymphocytes Percent Auto 6.8 % (18.0-42.0); Mean Corpuscular HGB Conc 31.6 g/dL (32.0-36.0); Mean Corpuscular Hemoglobin 27.3 pg (27.0-31.0); Mean Corpuscular Volume 86.5 fL (78.0-102.0); Mean Platelet Volume 9.6 fl (8.7-11.0); Monocytes Absolute Auto 0.53 K/mm3 (0.10-0.90); Monocytes Percent Auto 11.3 % (2.0-11.0); Neutrophils Absolute Auto 3.8 K/mm3 (1.7-7.2); Neutrophils Percent Auto 81.3 % (50.0-70.0); Platelet Count Result 181 K/mm3 (150-420); Red Blood Count 4.83 M/mm3 (4.70-6.10); Red Cell Distribution Width 14.1 % (11.6-14.4); White Blood Count 4.7 K/mm3 (4.8-10.8)
[2020-05-23 10:22] LABS: Creatinine Urine 105.95 mg/dL (40-278); Total Protein Urine Random 35.9 mg/dL (0.0-11.9); Ur Ttl Prot Creatinine Ratio 0.34 mg/mg (0-0.20)
[2020-05-23 10:37] LABS: Hemoglobin A1C 6.2 % (<5.7)
[2020-05-23 10:44] LABS: Alanine Aminotransferase 28 U/L (16-63); Albumin Level 4.2 g/dL (3.4-5.0); Alkaline Phosphatase 88 U/L (46-116); Anion Gap 9 mmol/L (8-16); Aspartate Amino Transferase 12 U/L (15-37); Bilirubin,Total 1.1 mg/dL (0.00-1.00); Blood Urea Nitrogen 25 mg/dL (7-18); Calcium 9.5 mg/dL (8.5-10.1); Carbon Dioxide 25 mmol/L (21-32); Chloride 103 mmol/L (98-108); Cholesterol 137 mg/dL (0-200); Estimated Glomerular Filt Rate 42; Glucose 106 mg/dL (70-99); HDL Direct 43 mg/dL (40-60); LDL Cholesterol Calculated 61 mg/dL (<130); Osmolality Calculated 288 mOsm/kg (285-295); Phosphorus 2.3 mg/dL (2.6-4.7); Sodium 137 mmol/L (136-145); Total Protein 7.2 g/dL (6.4-8.2); Triglycerides 166 mg/dL (0-150)
[2020-05-25 10:21] LABS: BK Virus Specimen Source Whole Blood
[2020-05-26 06:14] LABS: Tacrolimus Prograf 6.1 mcg/L
== END 2020-05-23 09:42 | disposition home or self-care (01) ==
LOC: CHSLAB 09:43
PROVIDERS: PCP Internal Medicine; Visit Provider Internal Medicine
DX: Z94.0 Kidney transplant status (principal); E10.65 Type 1 diabetes mellitus with hyperglycemia; E78.2 Mixed hyperlipidemia
CPT/HCPCS: 36415; 80053; 80061; 80197; 82570; 83036; 84100; 84156; 85025; 87799

== ENCOUNTER 2020-06-20 09:03 | Outpatient (CLI) | payer MEDICARE, SELFPAY ==
[2020-06-20 09:32] LABS: Hematocrit 41.5 % (40.0-54.0); Hemoglobin 13.3 g/dL (14.0-18.0); Mean Corpuscular Hemoglobin 28.2 pg (27.0-31.0); Mean Corpuscular Volume 88.1 fL (78.0-102.0); Mean Platelet Volume 9.4 fl (8.7-11.0); Platelet Count Result 164 K/mm3 (150-420); Red Blood Count 4.71 M/mm3 (4.70-6.10); Red Cell Distribution Width 14.6 % (11.6-14.4); White Blood Count 3.8 K/mm3 (4.8-10.8)
[2020-06-20 09:51] LABS: Band Neutrophils Percent 0 % (0-6); Lymphocytes Absolute Manual 0.53 K/mm3 (1.1-4.5); Lymphocytes Percent Manual 14 % (18-44); Monocytes Absolute Manual 0.38 K/mm3 (0.1-0.90); Monocytes Percent Manual 10 % (3-9); Neutrophils Absolute Manual 2.88 K/mm3 (1.3-6.7); Neutrophils Percent Manual 76 % (46-73); Platelet Estimate Adequate (Adequate); Total Cells Counted 100
[2020-06-20 11:26] LABS: Creatinine Urine 85.47 mg/dL (40-278); Total Protein Urine Random 42.8 mg/dL (0.0-11.9)
[2020-06-20 11:32] LABS: Albumin Level 4.2 g/dL (3.4-5.0); Anion Gap 10 mmol/L (8-16); Blood Urea Nitrogen 30 mg/dL (7-18); Calcium 9.4 mg/dL (8.5-10.1); Carbon Dioxide 25 mmol/L (21-32); Chloride 108 mmol/L (98-108); Estimated Glomerular Filt Rate 44; Glucose 96 mg/dL (70-99); Osmolality Calculated 302 mOsm/kg (285-295); Phosphorus 2.8 mg/dL (2.6-4.7); Potassium 4.3 mmol/L (3.5-5.1); Sodium 143 mmol/L (136-145)
[2020-06-22 19:45] LABS: BK Virus Specimen Source Plasma
[2020-06-23 08:14] LABS: Tacrolimus Prograf 9.3 mcg/L
== END 2020-06-20 09:04 | disposition home or self-care (01) ==
LOC: CHSLAB 09:08
PROVIDERS: PCP Internal Medicine
DX: Z94.0 Kidney transplant status (principal); E10.65 Type 1 diabetes mellitus with hyperglycemia; E78.2 Mixed hyperlipidemia; N39.0 Urinary tract infection, site not specified; Z79.899 Other long term (current) drug therapy
CPT/HCPCS: 36415; 80069; 80197; 82570; 84156; 85025; 87799

== ENCOUNTER 2020-07-17 08:48 | Outpatient (CLI) | payer MEDICARE, SELFPAY ==
[2020-07-17 09:13] LABS: Basophils Absolute Auto 0.01 K/mm3 (0.00-0.10); Basophils Percent Auto 0.2 % (0.0-1.0); Eosinophils Absolute Auto 0.01 K/mm3 (0.02-0.50); Eosinophils Percent Auto 0.2 % (1.0-6.0); Hematocrit 44.3 % (40.0-54.0); Hemoglobin 14.2 g/dL (14.0-18.0); Immature Granulocyte Absolute 0.02 K/mm3 (0.00-0.00); Immature Granulocyte Percent A 0.4 % (0.0-0.0); Lymphocytes Absolute Auto 0.57 K/mm3 (1.10-4.50); Lymphocytes Percent Auto 11.3 % (18.0-42.0); Mean Corpuscular HGB Conc 32.1 g/dL (32.0-36.0); Mean Corpuscular Hemoglobin 27.4 pg (27.0-31.0); Mean Corpuscular Volume 85.5 fL (78.0-102.0); Mean Platelet Volume 8.9 fl (8.7-11.0); Monocytes Absolute Auto 0.49 K/mm3 (0.10-0.90); Monocytes Percent Auto 9.7 % (2.0-11.0); Neutrophils Absolute Auto 3.9 K/mm3 (1.7-7.2); Neutrophils Percent Auto 78.2 % (50.0-70.0); Platelet Count Result 162 K/mm3 (150-420); Red Blood Count 5.18 M/mm3 (4.70-6.10); Red Cell Distribution Width 14.2 % (11.6-14.4)
[2020-07-17 09:22] LABS: Creatinine Urine 115.01 mg/dL (40-278); Total Protein Urine Random 40.5 mg/dL (0.0-11.9); Ur Ttl Prot Creatinine Ratio 0.35 mg/mg (0-0.20)
[2020-07-17 10:38] LABS: Albumin Level 4.1 g/dL (3.4-5.0); Anion Gap 10 mmol/L (8-16); Blood Urea Nitrogen 22 mg/dL (7-18); Calcium 9.3 mg/dL (8.5-10.1); Carbon Dioxide 27 mmol/L (21-32); Chloride 104 mmol/L (98-108); Estimated Glomerular Filt Rate 48; Glucose 102 mg/dL (70-99); Osmolality Calculated 295 mOsm/kg (285-295); Phosphorus 2.4 mg/dL (2.6-4.7); Potassium 3.8 mmol/L (3.5-5.1); Sodium 141 mmol/L (136-145)
[2020-07-19 08:28] LABS: BK Virus Specimen Source Plasma
[2020-07-19 14:05] LABS: Tacrolimus Prograf 13.9 mcg/L
== END 2020-07-17 08:49 | disposition home or self-care (01) ==
PROVIDERS: PCP Internal Medicine
DX: Z94.0 Kidney transplant status (principal)
CPT/HCPCS: 36415; 80069; 80197; 82570; 84156; 85025; 87799

== ENCOUNTER 2020-08-16 07:56 | Outpatient (CLI) | payer MEDICARE, SELFPAY ==
[2020-08-16 08:14] LABS: Basophils Absolute Auto 0.01 K/mm3 (0.00-0.10); Basophils Percent Auto 0.2 % (0.0-1.0); Eosinophils Absolute Auto 0.02 K/mm3 (0.02-0.50); Eosinophils Percent Auto 0.4 % (1.0-6.0); Hematocrit 43.6 % (40.0-54.0); Hemoglobin 14.6 g/dL (14.0-18.0); Immature Granulocyte Absolute 0.02 K/mm3 (0.00-0.00); Immature Granulocyte Percent A 0.4 % (0.0-0.0); Lymphocytes Absolute Auto 0.57 K/mm3 (1.10-4.50); Lymphocytes Percent Auto 10.1 % (18.0-42.0); Mean Corpuscular HGB Conc 33.5 g/dL (32.0-36.0); Mean Corpuscular Volume 83.7 fL (78.0-102.0); Mean Platelet Volume 8.9 fl (8.7-11.0); Monocytes Percent Auto 8.8 % (2.0-11.0); Neutrophils Absolute Auto 4.5 K/mm3 (1.7-7.2); Neutrophils Percent Auto 80.1 % (50.0-70.0); Platelet Count Result 174 K/mm3 (150-420); Red Blood Count 5.21 M/mm3 (4.70-6.10); White Blood Count 5.7 K/mm3 (4.8-10.8)
[2020-08-16 08:28] LABS: Creatinine Urine 121.73 mg/dL (40-278); Ur Ttl Prot Creatinine Ratio 0.49 mg/mg (0-0.20)
[2020-08-16 08:32] LABS: Hemoglobin A1C 6.6 % (<5.7)
[2020-08-16 09:08] LABS: Alanine Aminotransferase 25 U/L (16-63); Albumin Level 4.2 g/dL (3.4-5.0); Alkaline Phosphatase 88 U/L (46-116); Anion Gap 14 mmol/L (8-16); Aspartate Amino Transferase < 10 U/L (15-37); Bilirubin,Total 0.7 mg/dL (0.00-1.00); Blood Urea Nitrogen 21 mg/dL (7-18); Calcium 9.5 mg/dL (8.5-10.1); Carbon Dioxide 25 mmol/L (21-32); Chloride 105 mmol/L (98-108); Cholesterol 144 mg/dL (0-200); Estimated Glomerular Filt Rate 54; Glucose 114 mg/dL (70-99); HDL Direct 51 mg/dL (40-60); LDL Cholesterol Calculated 77 mg/dL (<130); Osmolality Calculated 302 mOsm/kg (285-295); Phosphorus 3.2 mg/dL (2.6-4.7); Potassium 3.7 mmol/L (3.5-5.1); Sodium 144 mmol/L (136-145); Total Protein 6.7 g/dL (6.4-8.2); Triglycerides 82 mg/dL (0-150)
[2020-08-19 18:16] LABS: Tacrolimus Prograf 11.1 mcg/L
[2020-08-19 19:28] LABS: BK Virus Specimen Source Plasma
== END 2020-08-16 07:57 | disposition home or self-care (01) ==
LOC: CHSLAB 08:01
PROVIDERS: PCP Internal Medicine; Visit Provider Internal Medicine
DX: Z94.0 Kidney transplant status (principal); Z79.899 Other long term (current) drug therapy; E10.65 Type 1 diabetes mellitus with hyperglycemia; E78.2 Mixed hyperlipidemia; N39.0 Urinary tract infection, site not specified
CPT/HCPCS: 36415; 80053; 80061; 80197; 82570; 83036; 84100; 84156; 85025; 87799

== ENCOUNTER 2020-09-03 07:57 | Outpatient (CLI) | payer MEDICARE, SELFPAY ==
[2020-09-06 13:30] LABS: Tacrolimus Prograf 5.4 mcg/L
== END 2020-09-03 07:58 | disposition home or self-care (01) ==
LOC: CHSLAB 08:00
PROVIDERS: PCP Internal Medicine
DX: Z94.0 Kidney transplant status (principal); Z79.899 Other long term (current) drug therapy
CPT/HCPCS: 36415; 80197

== ENCOUNTER 2020-09-16 09:55 | Outpatient (CLI) | payer MEDICARE, SELFPAY ==
[2020-09-16 10:15] LABS: Basophils Absolute Auto 0.01 K/mm3 (0.00-0.10); Basophils Percent Auto 0.1 % (0.0-1.0); Eosinophils Absolute Auto 0.01 K/mm3 (0.02-0.50); Eosinophils Percent Auto 0.1 % (1.0-6.0); Hematocrit 45.7 % (40.0-54.0); Hemoglobin 14.9 g/dL (14.0-18.0); Immature Granulocyte Absolute 0.03 K/mm3 (0.00-0.00); Immature Granulocyte Percent A 0.4 % (0.0-0.0); Lymphocytes Absolute Auto 0.55 K/mm3 (1.10-4.50); Lymphocytes Percent Auto 8.2 % (18.0-42.0); Mean Corpuscular HGB Conc 32.6 g/dL (32.0-36.0); Mean Corpuscular Hemoglobin 27.6 pg (27.0-31.0); Mean Corpuscular Volume 84.6 fL (78.0-102.0); Mean Platelet Volume 8.9 fl (8.7-11.0); Monocytes Absolute Auto 0.51 K/mm3 (0.10-0.90); Monocytes Percent Auto 7.6 % (2.0-11.0); Neutrophils Absolute Auto 5.6 K/mm3 (1.7-7.2); Neutrophils Percent Auto 83.6 % (50.0-70.0); Platelet Count Result 170 K/mm3 (150-420); Red Cell Distribution Width 14.1 % (11.6-14.4); White Blood Count 6.7 K/mm3 (4.8-10.8)
[2020-09-16 10:31] LABS: Creatinine Urine 97.17 mg/dL (40-278); Total Protein Urine Random 46.2 mg/dL (0.0-11.9); Ur Ttl Prot Creatinine Ratio 0.48 mg/mg (0-0.20)
[2020-09-16 11:37] LABS: Albumin Level 4.2 g/dL (3.4-5.0); Anion Gap 11 mmol/L (8-16); Blood Urea Nitrogen 20 mg/dL (7-18); Calcium 9.5 mg/dL (8.5-10.1); Carbon Dioxide 26 mmol/L (21-32); Chloride 105 mmol/L (98-108); Estimated Glomerular Filt Rate 58; Glucose 98 mg/dL (70-99); Osmolality Calculated 296 mOsm/kg (285-295); Phosphorus 2.5 mg/dL (2.6-4.7); Potassium 3.6 mmol/L (3.5-5.1); Sodium 142 mmol/L (136-145)
[2020-09-18 18:31] LABS: BK Virus Specimen Source Plasma
[2020-09-19 05:01] LABS: Tacrolimus Prograf 5.8 mcg/L
== END 2020-09-16 09:56 | disposition home or self-care (01) ==
PROVIDERS: PCP Internal Medicine
DX: Z94.0 Kidney transplant status (principal); Z79.899 Other long term (current) drug therapy; E10.65 Type 1 diabetes mellitus with hyperglycemia; E78.2 Mixed hyperlipidemia; N39.0 Urinary tract infection, site not specified
CPT/HCPCS: 36415; 80069; 80197; 82570; 84156; 85025; 87799

== ENCOUNTER 2020-10-17 08:28 | Outpatient (CLI) | payer MEDICARE, SELFPAY ==
[2020-10-17 08:53] LABS: Basophils Absolute Auto 0.01 K/mm3 (0.00-0.10); Basophils Percent Auto 0.2 % (0.0-1.0); Eosinophils Absolute Auto 0.01 K/mm3 (0.02-0.50); Eosinophils Percent Auto 0.2 % (1.0-6.0); Hematocrit 45.7 % (40.0-54.0); Immature Granulocyte Absolute 0.01 K/mm3 (0.00-0.00); Immature Granulocyte Percent A 0.2 % (0.0-0.0); Lymphocytes Absolute Auto 0.61 K/mm3 (1.10-4.50); Lymphocytes Percent Auto 10.6 % (18.0-42.0); Mean Corpuscular HGB Conc 32.8 g/dL (32.0-36.0); Mean Corpuscular Hemoglobin 27.8 pg (27.0-31.0); Mean Corpuscular Volume 84.6 fL (78.0-102.0); Mean Platelet Volume 9.1 fl (8.7-11.0); Monocytes Absolute Auto 0.54 K/mm3 (0.10-0.90); Monocytes Percent Auto 9.4 % (2.0-11.0); Neutrophils Absolute Auto 4.6 K/mm3 (1.7-7.2); Neutrophils Percent Auto 79.4 % (50.0-70.0); Platelet Count Result 182 K/mm3 (150-420); Red Cell Distribution Width 14.6 % (11.6-14.4); White Blood Count 5.8 K/mm3 (4.8-10.8)
[2020-10-17 09:06] LABS: Creatinine Urine 149.08 mg/dL (40-278); Total Protein Urine Random 66.6 mg/dL (0.0-11.9); Ur Ttl Prot Creatinine Ratio 0.45 mg/mg (0-0.20)
[2020-10-17 09:25] LABS: Albumin Level 4.2 g/dL (3.4-5.0); Anion Gap 7 mmol/L (8-16); Blood Urea Nitrogen 18 mg/dL (7-18); Calcium 9.4 mg/dL (8.5-10.1); Carbon Dioxide 28 mmol/L (21-32); Chloride 105 mmol/L (98-108); Estimated Glomerular Filt Rate 54; Glucose 125 mg/dL (70-99); Osmolality Calculated 292 mOsm/kg (285-295); Phosphorus 2.3 mg/dL (2.6-4.7); Potassium 3.6 mmol/L (3.5-5.1); Sodium 140 mmol/L (136-145)
[2020-10-19 17:52] LABS: Tacrolimus Prograf 4.3 mcg/L
[2020-10-19 23:22] LABS: BK Virus Specimen Source Plasma
== END 2020-10-17 08:29 | disposition home or self-care (01) ==
LOC: CHSLAB 08:35
PROVIDERS: PCP Internal Medicine
DX: Z94.0 Kidney transplant status (principal)
CPT/HCPCS: 36415; 80069; 80197; 82570; 84156; 85025; 87799

== ENCOUNTER 2020-11-19 08:30 | Outpatient (CLI) | payer MEDICARE, SELFPAY ==
[2020-11-19 08:48] LABS: Eosinophils Absolute Auto 0.02 K/mm3 (0.02-0.50); Eosinophils Percent Auto 0.3 % (1.0-6.0); Hematocrit 47.5 % (40.0-54.0); Hemoglobin 15.3 g/dL (14.0-18.0); Immature Granulocyte Absolute 0.02 K/mm3 (0.00-0.00); Immature Granulocyte Percent A 0.3 % (0.0-0.0); Lymphocytes Absolute Auto 0.62 K/mm3 (1.10-4.50); Lymphocytes Percent Auto 9.9 % (18.0-42.0); Mean Corpuscular HGB Conc 32.2 g/dL (32.0-36.0); Mean Corpuscular Hemoglobin 27.1 pg (27.0-31.0); Mean Corpuscular Volume 84.2 fL (78.0-102.0); Mean Platelet Volume 8.8 fl (8.7-11.0); Monocytes Absolute Auto 0.53 K/mm3 (0.10-0.90); Monocytes Percent Auto 8.5 % (2.0-11.0); Neutrophils Absolute Auto 5.1 K/mm3 (1.7-7.2); Platelet Count Result 190 K/mm3 (150-420); Red Blood Count 5.64 M/mm3 (4.70-6.10); Red Cell Distribution Width 14.5 % (11.6-14.4); White Blood Count 6.3 K/mm3 (4.8-10.8)
[2020-11-19 09:04] LABS: Creatinine Urine 75.76 mg/dL (40-278); Total Protein Urine Random 46.5 mg/dL (0.0-11.9); Ur Ttl Prot Creatinine Ratio 0.61 mg/mg (0-0.20)
[2020-11-19 09:16] LABS: Hemoglobin A1C 6.7 % (<5.7)
[2020-11-19 09:46] LABS: Alanine Aminotransferase 30 U/L (16-63); Albumin Level 4.3 g/dL (3.4-5.0); Alkaline Phosphatase 95 U/L (46-116); Anion Gap 10 mmol/L (8-16); Aspartate Amino Transferase 12 U/L (15-37); Bilirubin,Total 1.3 mg/dL (0.00-1.00); Blood Urea Nitrogen 23 mg/dL (7-18); Calcium 9.9 mg/dL (8.5-10.1); Carbon Dioxide 27 mmol/L (21-32); Chloride 104 mmol/L (98-108); Cholesterol 145 mg/dL (0-200); Estimated Glomerular Filt Rate 50; Glucose 103 mg/dL (70-99); HDL Direct 52 mg/dL (40-60); LDL Cholesterol Calculated 71 mg/dL (<130); Osmolality Calculated 295 mOsm/kg (285-295); Phosphorus 2.8 mg/dL (2.6-4.7); Potassium 3.8 mmol/L (3.5-5.1); Sodium 141 mmol/L (136-145); Total Protein 6.7 g/dL (6.4-8.2); Triglycerides 111 mg/dL (0-150)
[2020-11-21 17:05] LABS: BK Virus Specimen Source Plasma
[2020-11-22 23:36] LABS: Tacrolimus Prograf 4.9 mcg/L
== END 2020-11-19 08:31 | disposition home or self-care (01) ==
LOC: CHSLAB 08:33
PROVIDERS: PCP Internal Medicine; Visit Provider Internal Medicine Nephrology
DX: Z94.0 Kidney transplant status (principal); E10.65 Type 1 diabetes mellitus with hyperglycemia
CPT/HCPCS: 36415; 80053; 80061; 80197; 82570; 83036; 84100; 84156; 85025; 87799

== ENCOUNTER 2020-12-17 07:37 | Outpatient (CLI) | payer MEDICARE, SELFPAY ==
[2020-12-17 07:56] LABS: Basophils Absolute Auto 0.01 K/mm3 (0.00-0.10); Basophils Percent Auto 0.2 % (0.0-1.0); Eosinophils Absolute Auto 0.09 K/mm3 (0.02-0.50); Eosinophils Percent Auto 1.6 % (1.0-6.0); Hematocrit 46.5 % (40.0-54.0); Hemoglobin 15.1 g/dL (14.0-18.0); Immature Granulocyte Absolute 0.02 K/mm3 (0.00-0.00); Immature Granulocyte Percent A 0.3 % (0.0-0.0); Lymphocytes Absolute Auto 0.53 K/mm3 (1.10-4.50); Lymphocytes Percent Auto 9.2 % (18.0-42.0); Mean Corpuscular HGB Conc 32.5 g/dL (32.0-36.0); Mean Corpuscular Hemoglobin 27.6 pg (27.0-31.0); Monocytes Absolute Auto 0.62 K/mm3 (0.10-0.90); Monocytes Percent Auto 10.8 % (2.0-11.0); Neutrophils Absolute Auto 4.5 K/mm3 (1.7-7.2); Neutrophils Percent Auto 77.9 % (50.0-70.0); Platelet Count Result 169 K/mm3 (150-420); Red Blood Count 5.47 M/mm3 (4.70-6.10); Red Cell Distribution Width 14.5 % (11.6-14.4); White Blood Count 5.8 K/mm3 (4.8-10.8)
[2020-12-17 08:01] LABS: Creatinine Urine 119.22 mg/dL (40-278); Total Protein Urine Random 94.2 mg/dL (0.0-11.9); Ur Ttl Prot Creatinine Ratio 0.79 mg/mg (0-0.20)
[2020-12-17 08:20] LABS: Albumin Level 3.7 g/dL (3.4-5.0); Anion Gap 10 mmol/L (8-16); Blood Urea Nitrogen 20 mg/dL (7-18); Carbon Dioxide 29 mmol/L (21-32); Chloride 105 mmol/L (98-108); Estimated Glomerular Filt Rate 54; Glucose 127 mg/dL (70-99); Osmolality Calculated 302 mOsm/kg (285-295); Potassium 3.6 mmol/L (3.5-5.1); Sodium 144 mmol/L (136-145)
[2020-12-19 22:35] LABS: Tacrolimus Prograf 5.8 mcg/L
== END 2020-12-17 07:38 | disposition home or self-care (01) ==
LOC: CHSLAB 07:42
PROVIDERS: PCP Internal Medicine
DX: Z94.0 Kidney transplant status (principal); E10.65 Type 1 diabetes mellitus with hyperglycemia; N39.0 Urinary tract infection, site not specified; E78.2 Mixed hyperlipidemia; Z79.899 Other long term (current) drug therapy
CPT/HCPCS: 36415; 80069; 80197; 82570; 84156; 85025

== ENCOUNTER 2020-12-30 09:08 | Outpatient (CLI) | payer MEDICARE, SELFPAY ==
--- NOTE | 2020-12-30 09:15 | PC.NURSE ---
Pt to room 210 amb. A&Ox3. Up in chair. Complains of cough and congestion. Denies SOB. Infusion plan of care explained. Pt given consent and written information. Pt has no questions. Oriented to room. Call cho in reach. Reminded to call with needs.
[2020-12-30 09:30] VITALS: BP 121/59; PULSE 69; RESP 20; TEMP 37.1; O2SAT 97
[2020-12-30] MEDS: FAMOTIDINE 20 MG TABLET PO (10:03)
[2020-12-30] MEDS: diphenhydrAMINE HCl CAP 25 MG CAPSULE PO (10:03)
--- NOTE | 2020-12-30 10:56 | PC.NURSE ---
Infusion complete. Pt tolerated well. Has no complaints. Remains up in chair, watching TV. Waiting for his observation post infusion to end.
--- NOTE | 2020-12-30 11:14 | PC.NURSE ---
Pt tolerated the infusion well. Has no questions or complaints. Discharged to home amb per self.
== END 2020-12-30 09:09 | disposition home or self-care (01) ==
LOC: CHSTREATRM 09:13
PROVIDERS: PCP Internal Medicine; Visit Provider Internal Medicine
DX: U07.1 COVID-19 (principal)
CPT/HCPCS: A9270; J7050; M0243; Q0244

== ENCOUNTER 2021-01-16 06:59 | Outpatient (CLI) | payer MEDICARE, SELFPAY ==
[2021-01-16 07:24] LABS: Basophils Absolute Auto 0.01 K/mm3 (0.00-0.10); Basophils Percent Auto 0.2 % (0.0-1.0); Eosinophils Absolute Auto 0.04 K/mm3 (0.02-0.50); Eosinophils Percent Auto 0.8 % (1.0-6.0); Hematocrit 47.9 % (40.0-54.0); Hemoglobin 15.4 g/dL (14.0-18.0); Immature Granulocyte Absolute 0.01 K/mm3 (0.00-0.00); Immature Granulocyte Percent A 0.2 % (0.0-0.0); Lymphocytes Percent Auto 13.9 % (18.0-42.0); Mean Corpuscular HGB Conc 32.2 g/dL (32.0-36.0); Mean Corpuscular Hemoglobin 27.5 pg (27.0-31.0); Mean Corpuscular Volume 85.5 fL (78.0-102.0); Mean Platelet Volume 9.2 fl (8.7-11.0); Monocytes Percent Auto 11.9 % (2.0-11.0); Neutrophils Absolute Auto 3.7 K/mm3 (1.7-7.2); Platelet Count Result 199 K/mm3 (150-420)
--- NOTE | 2021-01-16 07:31 | ECHO_ITS ---
Patient Info Name: Zachary Melton Age: 60 years : 1960 Gender: Male Ht: 67 in Wt: 200 lbs BSA: 2.10 m2 HR: 56 bpm BP: 157 / 76 mmHg Exam Date: 01/16/2021 8:20 AM Exam Location: [facility] Patient Status: Outpatient Admit Date: 01/16/2021 Staff Ordering Physician: Rigo Alvarenga MD [employer] Supervisor: Brissa Reed Attending Provider: Easton Snyder MD Exam Type: CA echo doppler color flow Study Info Indications R01.1 - Cardiac murmur, unspecified Complete two-dimensional, color flow and Doppler transthoracic echocardiogram is performed. Strain analysis performed. Summary 1. Complete two-dimensional, color flow and Doppler transthoracic echocardiogram is performed. 2. Left ventricular chamber dimension is normal. 3. Left ventricular systolic function is normal, estimated at 55-60%. 4. The left ventricular diastolic function is grade I diastolic dysfunction. 5. E/e' 15 is elevated. 6. Global longitudinal strain is normal at -17.4%. 7. There is mild aortic valve sclerosis. 8. There is trace aortic valve regurgitation. 9. There is mild mitral valve regurgitation. 10. There is mild tricuspid valve regurgitation. 11. No pulmonary hypertension, estimated pulmonary arterial systolic pressure is 37 mmHg. 12. There is mild pulmonic regurgitation. Left Ventricle E/e' 15 is elevated. Global longitudinal strain is normal at -17.4%. Left ventricular chamber dimension is normal. Left ventricular systolic function is normal, estimated at 55-60%. The left ventricular diastolic function is grade I diastolic dysfunction. Right Ventricle Right ventricular systolic function is normal and with normal TAPSE 2.1 cm. Right ventricular chamber dimension is normal. Left Atria Left atrial chamber dimension is normal. Right Atria Right atrial chamber dimension is normal. Aortic Valve The aortic valve is trileaflet. There is mild aortic valve sclerosis. There is no aortic valve stenosis. There is trace aortic valve regurgitation. Pulmonic Valve There is mild pulmonic regurgitation. Mitral Valve There is no mitral valve stenosis. There is mild mitral valve regurgitation. Tricuspid Valve There is mild tricuspid valve regurgitation. No pulmonary hypertension, estimated pulmonary arterial systolic pressure is 37 mmHg. Pericardium/Pleural There is no pericardial effusion. Inferior Vena Cava Normal inferior vena cava with >50% collapse upon inspiration consistent with normal right atrial pressure, 5 mmHg. Aorta The aortic root size at the sinus of Valsalva is normal. Left Ventricular Outflow Tract Name Value Normal LVOT 2D LVOT Diameter 2.0 cm LVOT Doppler LVOT Peak Velocity 77 cm/s LVOT Peak Gradient 2 mmHg LVOT Mean Gradient 1 mmHg LVOT VTI 17 cm LVOT VTI/AV VTI Ratio 0.8 LVOT Stroke Volume 53 ml Mitral Valve Name
[2021-01-16 07:33] LABS: Creatinine Urine 114.36 mg/dL (40-278); Total Protein Urine Random 98.6 mg/dL (0.0-11.9); Ur Ttl Prot Creatinine Ratio 0.86 mg/mg (0-0.20)
[2021-01-16 08:12] LABS: Albumin Level 4.1 g/dL (3.4-5.0); Anion Gap 10 mmol/L (8-16); Blood Urea Nitrogen 24 mg/dL (7-18); Calcium 9.5 mg/dL (8.5-10.1); Carbon Dioxide 27 mmol/L (21-32); Chloride 105 mmol/L (98-108); Estimated Glomerular Filt Rate 49; Glucose 109 mg/dL (70-99); Osmolality Calculated 299 mOsm/kg (285-295); Phosphorus 2.7 mg/dL (2.6-4.7); Potassium 3.8 mmol/L (3.5-5.1); Sodium 142 mmol/L (136-145)
[2021-01-19 04:48] LABS: Tacrolimus Prograf 7.1 mcg/L
== END 2021-01-16 07:00 | disposition home or self-care (01) ==
LOC: CHSIMG 07:05
PROVIDERS: PCP Internal Medicine
DX: R01.1 Cardiac murmur, unspecified (principal); I08.1 Rheumatic disorders of both mitral and tricuspid valves
CPT/HCPCS: 36415; 80069; 80197; 82570; 84156; 85025; 93306

== ENCOUNTER 2021-02-18 08:50 | Outpatient (CLI) | payer MEDICARE, SELFPAY ==
[2021-02-18 09:18] LABS: Basophils Absolute Auto 0.01 K/mm3 (0.00-0.10); Basophils Percent Auto 0.2 % (0.0-1.0); Eosinophils Absolute Auto 0.02 K/mm3 (0.02-0.50); Eosinophils Percent Auto 0.3 % (1.0-6.0); Hematocrit 49.1 % (40.0-54.0); Hemoglobin 15.9 g/dL (14.0-18.0); Immature Granulocyte Absolute 0.02 K/mm3 (0.00-0.00); Immature Granulocyte Percent A 0.3 % (0.0-0.0); Lymphocytes Absolute Auto 0.62 K/mm3 (1.10-4.50); Lymphocytes Percent Auto 9.6 % (18.0-42.0); Mean Corpuscular HGB Conc 32.4 g/dL (32.0-36.0); Mean Corpuscular Hemoglobin 27.7 pg (27.0-31.0); Mean Corpuscular Volume 85.7 fL (78.0-102.0); Mean Platelet Volume 8.9 fl (8.7-11.0); Monocytes Absolute Auto 0.57 K/mm3 (0.10-0.90); Monocytes Percent Auto 8.8 % (2.0-11.0); Neutrophils Absolute Auto 5.2 K/mm3 (1.7-7.2); Neutrophils Percent Auto 80.8 % (50.0-70.0); Platelet Count Result 202 K/mm3 (150-420); Red Blood Count 5.73 M/mm3 (4.70-6.10); Red Cell Distribution Width 14.8 % (11.6-14.4); White Blood Count 6.5 K/mm3 (4.8-10.8)
[2021-02-18 09:51] LABS: Total Protein Urine Random 93.8 mg/dL (0.0-11.9); Ur Ttl Prot Creatinine Ratio 0.79 mg/mg (0-0.20)
[2021-02-18 09:57] LABS: Alanine Aminotransferase 28 U/L (16-63); Alkaline Phosphatase 108 U/L (46-116); Anion Gap 11 mmol/L (8-16); Aspartate Amino Transferase 12 U/L (15-37); Bilirubin Direct 0.1 mg/dL (0-0.2); Blood Urea Nitrogen 29 mg/dL (7-18); Calcium 9.4 mg/dL (8.5-10.1); Carbon Dioxide 26 mmol/L (21-32); Chloride 106 mmol/L (98-108); Cholesterol 148 mg/dL (0-200); Estimated Glomerular Filt Rate 42; Glucose 134 mg/dL (70-99); HDL Direct 36 mg/dL (40-60); LDL Cholesterol Calculated 58 mg/dL (<130); Osmolality Calculated 303 mOsm/kg (285-295); Phosphorus 2.9 mg/dL (2.6-4.7); Potassium 3.7 mmol/L (3.5-5.1); Sodium 143 mmol/L (136-145); Total Protein 6.7 g/dL (6.4-8.2); Triglycerides 270 mg/dL (0-150)
[2021-02-18 09:58] LABS: Hemoglobin A1C 7.4 % (<5.7)
[2021-02-21 09:43] LABS: Tacrolimus Prograf 4.6 mcg/L
== END 2021-02-18 08:51 | disposition home or self-care (01) ==
LOC: CHSLAB 08:54
PROVIDERS: PCP Internal Medicine
DX: Z94.0 Kidney transplant status (principal); E10.65 Type 1 diabetes mellitus with hyperglycemia; E78.2 Mixed hyperlipidemia; N39.0 Urinary tract infection, site not specified; Z79.899 Other long term (current) drug therapy
CPT/HCPCS: 36415; 80061; 80069; 80076; 80197; 82570; 83036; 84156; 85025

== ENCOUNTER 2021-03-14 11:13 | Outpatient (CLI) | payer MEDICARE, SELFPAY ==
[2021-03-14 12:14] LABS: Influenza A QL RT-PCR Negative (Negative); Influenza B QL RT-PCR Negative (Negative); SARS-CoV-2 RNA PCR Positive (Negative)
== END 2021-03-14 11:14 | disposition home or self-care (01) ==
PROVIDERS: PCP Internal Medicine; Visit Provider Internal Medicine
DX: U07.1 COVID-19 (principal); J02.9 Acute pharyngitis, unspecified; R05.9 Cough, unspecified
CPT/HCPCS: 87081; 87502; 87880; C9803; U0003; U0005

== ENCOUNTER 2021-03-18 09:55 | Outpatient (CLI) | payer MEDICARE, SELFPAY ==
--- NOTE | 2021-03-18 10:05 | PC.NURSE ---
Pt to room 211 amb. A&Ox3. Pt complains of fatigue for the last few days. Infusion plan of care discussed. Pt read and signed consent. Has no questions. Oriented to room. Call cho in reach. Reminded to call with needs.
[2021-03-18] MEDS: diphenhydrAMINE HCl CAP 25 MG CAPSULE PO (10:28)
[2021-03-18] MEDS: ACETAMINOPHEN 325 MG TABLET 650 MG PO (10:28)
[2021-03-18 10:29] VITALS: BP 164/83; PULSE 82; RESP 20; O2SAT 98
[2021-03-18] MEDS: FAMOTIDINE 20 MG TABLET PO (10:29)
--- NOTE | 2021-03-18 11:36 | PC.NURSE ---
Pt tolerated infusion well. Has no complaints. Discharged to home per self ambulatory.
== END 2021-03-18 09:56 | disposition home or self-care (01) ==
PROVIDERS: PCP Internal Medicine; Visit Provider Internal Medicine
DX: U07.1 COVID-19 (principal); E11.9 Type 2 diabetes mellitus without complications; I10 Essential (primary) hypertension
CPT/HCPCS: A9270; M0247; Q0247

== ENCOUNTER 2021-03-24 08:25 | Outpatient (CLI) | payer MEDICARE, SELFPAY ==
[2021-03-24 08:43] LABS: Eosinophils Absolute Auto 0.01 K/mm3 (0.02-0.50); Eosinophils Percent Auto 0.2 % (1.0-6.0); Hematocrit 48.8 % (40.0-54.0); Hemoglobin 16.1 g/dL (14.0-18.0); Immature Granulocyte Absolute 0.02 K/mm3 (0.00-0.00); Immature Granulocyte Percent A 0.4 % (0.0-0.0); Lymphocytes Absolute Auto 0.73 K/mm3 (1.10-4.50); Lymphocytes Percent Auto 12.9 % (18.0-42.0); Mean Corpuscular Hemoglobin 28.1 pg (27.0-31.0); Mean Corpuscular Volume 85.2 fL (78.0-102.0); Mean Platelet Volume 8.6 fl (8.7-11.0); Monocytes Absolute Auto 0.58 K/mm3 (0.10-0.90); Monocytes Percent Auto 10.2 % (2.0-11.0); Neutrophils Absolute Auto 4.3 K/mm3 (1.7-7.2); Neutrophils Percent Auto 76.3 % (50.0-70.0); Platelet Count Result 232 K/mm3 (150-420); Red Blood Count 5.73 M/mm3 (4.70-6.10); Red Cell Distribution Width 14.4 % (11.6-14.4); White Blood Count 5.7 K/mm3 (4.8-10.8)
[2021-03-24 09:00] LABS: Total Protein Urine Random 123.1 mg/dL (0.0-11.9); Ur Ttl Prot Creatinine Ratio 0.87 mg/mg (0-0.20)
[2021-03-24 09:24] LABS: Albumin Level 3.8 g/dL (3.4-5.0); Anion Gap 11 mmol/L (8-16); Blood Urea Nitrogen 30 mg/dL (7-18); Calcium 9.3 mg/dL (8.5-10.1); Carbon Dioxide 26 mmol/L (21-32); Chloride 104 mmol/L (98-108); Estimated Glomerular Filt Rate 49; Glucose 120 mg/dL (70-99); Osmolality Calculated 299 mOsm/kg (285-295); Phosphorus 2.6 mg/dL (2.6-4.7); Potassium 3.8 mmol/L (3.5-5.1); Sodium 141 mmol/L (136-145)
[2021-03-26 08:59] LABS: Tacrolimus Prograf 6.7 mcg/L
== END 2021-03-24 08:26 | disposition home or self-care (01) ==
LOC: CHSLAB 08:29
PROVIDERS: PCP Internal Medicine
DX: Z94.0 Kidney transplant status (principal); E10.65 Type 1 diabetes mellitus with hyperglycemia; E78.2 Mixed hyperlipidemia; N39.0 Urinary tract infection, site not specified; Z79.899 Other long term (current) drug therapy
CPT/HCPCS: 36415; 80069; 80197; 82570; 84156; 85025

== ENCOUNTER 2021-04-03 10:11 | Outpatient (CLI) | payer MEDICARE, SELFPAY ==
--- NOTE | ~2021-04-03 | XR_ITS ---
XR chest 2V DATE: 04/03/2021 10:31 Indication: Cough, shortness of breath, chest pain; recent Covid 19 infection. TECHNIQUE: 2 views COMPARISON: 12/20/2018 2 view chest FINDINGS: Normal heart size. There is aortic arch calcification. No hilar or mediastinal enlargement. No pulmonary infiltrate or consolidation, pleural effusion or pulmonary vascular congestion or pneum othorax. A vascular stent overlies the proximal left arm. IMPRESSION: No active cardiopulmonary disease Aortic calcification Reviewed, dictated and finalized at location B. ENT ANALYST
== END 2021-04-03 10:12 | disposition home or self-care (01) ==
LOC: CHSIMG 10:14
PROVIDERS: PCP Internal Medicine; Visit Provider Internal Medicine
DX: R05.9 Cough, unspecified (principal); Z86.16 Personal history of COVID-19
CPT/HCPCS: 71046

== ENCOUNTER 2021-04-21 09:18 | Outpatient (CLI) | payer MEDICARE, SELFPAY ==
[2021-04-21 09:38] LABS: Basophils Absolute Auto 0.01 K/mm3 (0.00-0.10); Basophils Percent Auto 0.1 % (0.0-1.0); Hematocrit 49.7 % (40.0-54.0); Hemoglobin 16.2 g/dL (14.0-18.0); Immature Granulocyte Absolute 0.04 K/mm3 (0.00-0.00); Immature Granulocyte Percent A 0.5 % (0.0-0.0); Lymphocytes Absolute Auto 0.74 K/mm3 (1.10-4.50); Lymphocytes Percent Auto 8.4 % (18.0-42.0); Mean Corpuscular HGB Conc 32.6 g/dL (32.0-36.0); Mean Corpuscular Hemoglobin 28.4 pg (27.0-31.0); Mean Platelet Volume 9.7 fl (8.7-11.0); Monocytes Absolute Auto 0.73 K/mm3 (0.10-0.90); Monocytes Percent Auto 8.3 % (2.0-11.0); Neutrophils Absolute Auto 7.3 K/mm3 (1.7-7.2); Neutrophils Percent Auto 82.7 % (50.0-70.0); Platelet Count Result 196 K/mm3 (150-420); Red Blood Count 5.71 M/mm3 (4.70-6.10); Red Cell Distribution Width 14.7 % (11.6-14.4); White Blood Count 8.8 K/mm3 (4.8-10.8)
[2021-04-21 09:57] LABS: Creatinine Urine 65.33 mg/dL (40-278); Total Protein Urine Random 88.5 mg/dL (0.0-11.9); Ur Ttl Prot Creatinine Ratio 1.35 mg/mg (0-0.20)
[2021-04-21 10:16] LABS: Albumin Level 3.8 g/dL (3.4-5.0); Anion Gap 11 mmol/L (8-16); Blood Urea Nitrogen 36 mg/dL (7-18); Calcium 9.7 mg/dL (8.5-10.1); Carbon Dioxide 27 mmol/L (21-32); Chloride 102 mmol/L (98-108); Estimated Glomerular Filt Rate 51; Glucose 226 mg/dL (70-99); Osmolality Calculated 305 mOsm/kg (285-295); Phosphorus 2.7 mg/dL (2.6-4.7); Sodium 140 mmol/L (136-145)
[2021-04-23 18:45] LABS: Tacrolimus Prograf 3.6 mcg/L
== END 2021-04-21 09:19 | disposition home or self-care (01) ==
LOC: CHSLAB 09:22
PROVIDERS: PCP Internal Medicine
DX: Z94.0 Kidney transplant status (principal); E10.65 Type 1 diabetes mellitus with hyperglycemia; E78.2 Mixed hyperlipidemia; N39.0 Urinary tract infection, site not specified; Z79.899 Other long term (current) drug therapy
CPT/HCPCS: 36415; 80069; 80197; 82570; 84156; 85025

== ENCOUNTER 2021-05-01 08:16 | Outpatient (CLI) | payer MEDICARE, SELFPAY | END 2021-05-01 08:17 | disposition home or self-care (01) | LOC: CHSLAB 08:23 | PROVIDERS: PCP Internal Medicine; Visit Provider Internal Medicine | DX: N18.6 End stage renal disease (principal) | CPT/HCPCS: 36415 ==

== ENCOUNTER 2021-05-08 14:16 | Outpatient (CLI) | payer MEDICARE, SELFPAY ==
[2021-05-08 14:47] LABS: Creatinine Urine 117.42 mg/dL (40-278); Total Protein Urine Random 137.7 mg/dL (0.0-11.9); Ur Ttl Prot Creatinine Ratio 1.17 mg/mg (0-0.20)
== END 2021-05-08 14:17 | disposition home or self-care (01) ==
LOC: CHSLAB 14:20
PROVIDERS: PCP Internal Medicine
DX: Z94.0 Kidney transplant status (principal)
CPT/HCPCS: 82570; 84156

== ENCOUNTER 2021-05-22 07:26 | Outpatient (CLI) | payer MEDICARE, SELFPAY ==
[2021-05-22 07:54] LABS: Basophils Absolute Auto 0.02 K/mm3 (0.00-0.10); Basophils Percent Auto 0.2 % (0.0-1.0); Eosinophils Absolute Auto 0.01 K/mm3 (0.02-0.50); Eosinophils Percent Auto 0.1 % (1.0-6.0); Hemoglobin 16.9 g/dL (14.0-18.0); Immature Granulocyte Percent A 2.4 % (0.0-0.0); Lymphocytes Percent Auto 8.3 % (18.0-42.0); Mean Corpuscular HGB Conc 33.1 g/dL (32.0-36.0); Mean Corpuscular Hemoglobin 28.7 pg (27.0-31.0); Mean Corpuscular Volume 86.6 fL (78.0-102.0); Mean Platelet Volume 9.5 fl (8.7-11.0); Monocytes Absolute Auto 0.85 K/mm3 (0.10-0.90); Neutrophils Absolute Auto 6.7 K/mm3 (1.7-7.2); Platelet Count Result 226 K/mm3 (150-420); Red Blood Count 5.89 M/mm3 (4.70-6.10); Red Cell Distribution Width 13.9 % (11.6-14.4); White Blood Count 8.5 K/mm3 (4.8-10.8)
[2021-05-22 08:11] LABS: Creatinine Urine 59.88 mg/dL (40-278); Total Protein Urine Random 73.1 mg/dL (0.0-11.9); Ur Ttl Prot Creatinine Ratio 1.22 mg/mg (0-0.20)
[2021-05-22 08:15] LABS: Hemoglobin A1C 9.7 % (<5.7)
[2021-05-22 08:42] LABS: Alanine Aminotransferase 29 U/L (16-63); Albumin Level 3.5 g/dL (3.4-5.0); Alkaline Phosphatase 92 U/L (46-116); Anion Gap 7 mmol/L (8-16); Aspartate Amino Transferase 15 U/L (15-37); Bilirubin Direct 0.3 mg/dL (0-0.2); Bilirubin,Total 1.4 mg/dL (0.00-1.00); Blood Urea Nitrogen 28 mg/dL (7-18); Calcium 9.3 mg/dL (8.5-10.1); Carbon Dioxide 28 mmol/L (21-32); Chloride 102 mmol/L (98-108); Cholesterol 161 mg/dL (0-200); Estimated Glomerular Filt Rate > 60; Glucose 171 mg/dL (70-99); HDL Direct 63 mg/dL (40-60); LDL Cholesterol Calculated 71 mg/dL (<130); Osmolality Calculated 293 mOsm/kg (285-295); Phosphorus 2.6 mg/dL (2.6-4.7); Potassium 3.9 mmol/L (3.5-5.1); Sodium 137 mmol/L (136-145); Total Protein 5.9 g/dL (6.4-8.2); Triglycerides 135 mg/dL (0-150)
[2021-05-25 16:57] LABS: Tacrolimus Prograf 5.3 mcg/L
== END 2021-05-22 07:27 | disposition home or self-care (01) ==
LOC: CHSLAB 07:31
PROVIDERS: PCP Internal Medicine
DX: Z94.0 Kidney transplant status (principal); E10.65 Type 1 diabetes mellitus with hyperglycemia; E78.2 Mixed hyperlipidemia; N39.0 Urinary tract infection, site not specified; Z79.899 Other long term (current) drug therapy
CPT/HCPCS: 36415; 80061; 80069; 80076; 80197; 82570; 83036; 84156; 85025

== ENCOUNTER 2021-05-26 07:21 | Outpatient (CLI) | payer MEDICARE, SELFPAY ==
[2021-05-26 07:39] LABS: Hematocrit 50.3 % (40.0-54.0); Hemoglobin 16.4 g/dL (14.0-18.0); Mean Corpuscular HGB Conc 32.6 g/dL (32.0-36.0); Mean Corpuscular Hemoglobin 28.5 pg (27.0-31.0); Mean Corpuscular Volume 87.5 fL (78.0-102.0); Platelet Count Result 229 K/mm3 (150-420); Red Blood Count 5.75 M/mm3 (4.70-6.10); Red Cell Distribution Width 14.1 % (11.6-14.4); White Blood Count 13.3 K/mm3 (4.8-10.8)
[2021-05-26 07:50] LABS: Creatinine Urine 63.46 mg/dL (40-278); Total Protein Urine Random 53.6 mg/dL (0.0-11.9); Ur Ttl Prot Creatinine Ratio 0.84 mg/mg (0-0.20)
[2021-05-26 08:24] LABS: Band Neutrophils Percent 1 % (0-6); Lymphocytes Absolute Manual 1.46 K/mm3 (1.1-4.5); Lymphocytes Percent Manual 11 % (18-44); Metamyelocytes Percent 1 %; Monocytes Absolute Manual 0.66 K/mm3 (0.1-0.90); Monocytes Percent Manual 5 % (3-9); Myelocytes Percent 1 %; Neutrophils Percent Manual 81 % (46-73); Total Cells Counted 100
[2021-05-26 08:25] LABS: Platelet Estimate Adequate (Adequate)
[2021-05-26 08:42] LABS: Albumin Level 3.4 g/dL (3.4-5.0); Anion Gap 7 mmol/L (8-16); Blood Urea Nitrogen 38 mg/dL (7-18); Calcium 9.5 mg/dL (8.5-10.1); Carbon Dioxide 29 mmol/L (21-32); Chloride 102 mmol/L (98-108); Estimated Glomerular Filt Rate 50; Glucose 171 mg/dL (70-99); Osmolality Calculated 299 mOsm/kg (285-295); Phosphorus 2.8 mg/dL (2.6-4.7); Potassium 4.1 mmol/L (3.5-5.1); Sodium 138 mmol/L (136-145)
[2021-05-29 10:19] LABS: Tacrolimus Prograf 6.7 mcg/L
== END 2021-05-26 07:22 | disposition home or self-care (01) ==
PROVIDERS: PCP Internal Medicine
DX: Z94.0 Kidney transplant status (principal); Z79.899 Other long term (current) drug therapy
CPT/HCPCS: 36415; 80069; 80197; 82570; 84156; 85025

== ENCOUNTER 2021-05-29 07:29 | Outpatient (CLI) | payer MEDICARE, SELFPAY ==
[2021-05-29 07:43] LABS: Basophils Absolute Auto 0.03 K/mm3 (0.00-0.10); Basophils Percent Auto 0.2 % (0.0-1.0); Hematocrit 49.5 % (40.0-54.0); Immature Granulocyte Absolute 0.26 K/mm3 (0.00-0.00); Immature Granulocyte Percent A 1.8 % (0.0-0.0); Lymphocytes Absolute Auto 0.92 K/mm3 (1.10-4.50); Lymphocytes Percent Auto 6.3 % (18.0-42.0); Mean Corpuscular HGB Conc 32.3 g/dL (32.0-36.0); Mean Corpuscular Hemoglobin 28.6 pg (27.0-31.0); Mean Corpuscular Volume 88.4 fL (78.0-102.0); Monocytes Absolute Auto 0.88 K/mm3 (0.10-0.90); Neutrophils Absolute Auto 12.5 K/mm3 (1.7-7.2); Neutrophils Percent Auto 85.7 % (50.0-70.0); Platelet Count Result 193 K/mm3 (150-420); Red Cell Distribution Width 14.5 % (11.6-14.4); White Blood Count 14.6 K/mm3 (4.8-10.8)
[2021-05-29 07:55] LABS: Creatinine Urine 56.14 mg/dL (40-278); Total Protein Urine Random 50.8 mg/dL (0.0-11.9)
[2021-05-29 08:36] LABS: Albumin Level 3.2 g/dL (3.4-5.0); Anion Gap 9 mmol/L (8-16); Blood Urea Nitrogen 33 mg/dL (7-18); Calcium 9.4 mg/dL (8.5-10.1); Carbon Dioxide 28 mmol/L (21-32); Chloride 103 mmol/L (98-108); Estimated Glomerular Filt Rate 60; Glucose 141 mg/dL (70-99); Osmolality Calculated 299 mOsm/kg (285-295); Phosphorus 2.8 mg/dL (2.6-4.7); Sodium 140 mmol/L (136-145)
== END 2021-05-29 07:30 | disposition home or self-care (01) ==
LOC: CHSLAB 07:32
PROVIDERS: PCP Internal Medicine
DX: Z94.0 Kidney transplant status (principal); Z79.899 Other long term (current) drug therapy
CPT/HCPCS: 36415; 80069; 80197; 82570; 84156; 85025

== ENCOUNTER 2021-06-02 07:09 | Outpatient (CLI) | payer MEDICARE, SELFPAY ==
[2021-06-02 07:27] LABS: Basophils Absolute Auto 0.01 K/mm3 (0.00-0.10); Basophils Percent Auto 0.1 % (0.0-1.0); Eosinophils Absolute Auto 0.02 K/mm3 (0.02-0.50); Eosinophils Percent Auto 0.2 % (1.0-6.0); Hematocrit 47.3 % (40.0-54.0); Hemoglobin 15.3 g/dL (14.0-18.0); Immature Granulocyte Absolute 0.03 K/mm3 (0.00-0.00); Immature Granulocyte Percent A 0.4 % (0.0-0.0); Lymphocytes Absolute Auto 0.73 K/mm3 (1.10-4.50); Lymphocytes Percent Auto 8.8 % (18.0-42.0); Mean Corpuscular HGB Conc 32.3 g/dL (32.0-36.0); Mean Corpuscular Volume 89.6 fL (78.0-102.0); Mean Platelet Volume 9.5 fl (8.7-11.0); Monocytes Absolute Auto 0.66 K/mm3 (0.10-0.90); Monocytes Percent Auto 7.9 % (2.0-11.0); Neutrophils Absolute Auto 6.9 K/mm3 (1.7-7.2); Neutrophils Percent Auto 82.6 % (50.0-70.0); Platelet Count Result 157 K/mm3 (150-420); Red Blood Count 5.28 M/mm3 (4.70-6.10); Red Cell Distribution Width 14.9 % (11.6-14.4); White Blood Count 8.3 K/mm3 (4.8-10.8)
[2021-06-02 07:55] LABS: Creatinine Urine 59.02 mg/dL (40-278); Total Protein Urine Random 53.5 mg/dL (0.0-11.9); Ur Ttl Prot Creatinine Ratio 0.91 mg/mg (0-0.20)
[2021-06-02 08:10] LABS: Albumin Level 3.2 g/dL (3.4-5.0); Anion Gap 8 mmol/L (8-16); Blood Urea Nitrogen 33 mg/dL (7-18); Carbon Dioxide 28 mmol/L (21-32); Chloride 106 mmol/L (98-108); Estimated Glomerular Filt Rate > 60; Glucose 117 mg/dL (70-99); Osmolality Calculated 302 mOsm/kg (285-295); Potassium 3.6 mmol/L (3.5-5.1); Sodium 142 mmol/L (136-145)
[2021-06-04 23:25] LABS: Tacrolimus Prograf 3.9 mcg/L
== END 2021-06-02 07:10 | disposition home or self-care (01) ==
LOC: CHSLAB 07:13
PROVIDERS: PCP Internal Medicine
DX: Z94.0 Kidney transplant status (principal); N39.0 Urinary tract infection, site not specified; Z79.899 Other long term (current) drug therapy
CPT/HCPCS: 36415; 80069; 80197; 82570; 84156; 85025

== ENCOUNTER 2021-06-05 07:18 | Outpatient (CLI) | payer MEDICARE, SELFPAY ==
[2021-06-05 07:53] LABS: Basophils Absolute Auto 0.01 K/mm3 (0.00-0.10); Basophils Percent Auto 0.2 % (0.0-1.0); Eosinophils Absolute Auto 0.01 K/mm3 (0.02-0.50); Eosinophils Percent Auto 0.2 % (1.0-6.0); Hematocrit 48.3 % (40.0-54.0); Hemoglobin 15.4 g/dL (14.0-18.0); Immature Granulocyte Absolute 0.04 K/mm3 (0.00-0.00); Immature Granulocyte Percent A 0.6 % (0.0-0.0); Lymphocytes Absolute Auto 0.65 K/mm3 (1.10-4.50); Lymphocytes Percent Auto 9.9 % (18.0-42.0); Mean Corpuscular HGB Conc 31.9 g/dL (32.0-36.0); Mean Platelet Volume 9.5 fl (8.7-11.0); Monocytes Absolute Auto 0.58 K/mm3 (0.10-0.90); Monocytes Percent Auto 8.8 % (2.0-11.0); Neutrophils Absolute Auto 5.3 K/mm3 (1.7-7.2); Neutrophils Percent Auto 80.3 % (50.0-70.0); Platelet Count Result 149 K/mm3 (150-420); Red Blood Count 5.31 M/mm3 (4.70-6.10); White Blood Count 6.6 K/mm3 (4.8-10.8)
[2021-06-05 07:56] LABS: Creatinine Urine 70.92 mg/dL (40-278); Total Protein Urine Random 70.4 mg/dL (0.0-11.9); Ur Ttl Prot Creatinine Ratio 0.99 mg/mg (0-0.20)
[2021-06-05 08:08] LABS: Albumin Level 3.2 g/dL (3.4-5.0); Anion Gap 6 mmol/L (8-16); Blood Urea Nitrogen 22 mg/dL (7-18); Calcium 9.2 mg/dL (8.5-10.1); Carbon Dioxide 29 mmol/L (21-32); Chloride 106 mmol/L (98-108); Estimated Glomerular Filt Rate > 60; Glucose 121 mg/dL (70-99); Osmolality Calculated 296 mOsm/kg (285-295); Phosphorus 2.9 mg/dL (2.6-4.7); Potassium 3.6 mmol/L (3.5-5.1); Sodium 141 mmol/L (136-145)
[2021-06-07 08:34] LABS: Tacrolimus Prograf 6.4 mcg/L
== END 2021-06-05 07:19 | disposition home or self-care (01) ==
LOC: CHSLAB 07:21
PROVIDERS: PCP Internal Medicine
DX: Z94.0 Kidney transplant status (principal); N39.0 Urinary tract infection, site not specified; Z79.899 Other long term (current) drug therapy
CPT/HCPCS: 36415; 80069; 80197; 82570; 84156; 85025

== ENCOUNTER 2021-06-09 07:12 | Outpatient (CLI) | payer MEDICARE, SELFPAY ==
[2021-06-09 07:32] LABS: Basophils Absolute Auto 0.01 K/mm3 (0.00-0.10); Basophils Percent Auto 0.1 % (0.0-1.0); Eosinophils Absolute Auto 0.02 K/mm3 (0.02-0.50); Eosinophils Percent Auto 0.2 % (1.0-6.0); Hemoglobin 15.6 g/dL (14.0-18.0); Immature Granulocyte Absolute 0.03 K/mm3 (0.00-0.00); Immature Granulocyte Percent A 0.4 % (0.0-0.0); Lymphocytes Absolute Auto 0.86 K/mm3 (1.10-4.50); Lymphocytes Percent Auto 10.4 % (18.0-42.0); Mean Corpuscular HGB Conc 31.8 g/dL (32.0-36.0); Mean Corpuscular Hemoglobin 28.9 pg (27.0-31.0); Mean Corpuscular Volume 90.7 fL (78.0-102.0); Mean Platelet Volume 9.1 fl (8.7-11.0); Monocytes Absolute Auto 0.52 K/mm3 (0.10-0.90); Monocytes Percent Auto 6.3 % (2.0-11.0); Neutrophils Absolute Auto 6.8 K/mm3 (1.7-7.2); Neutrophils Percent Auto 82.6 % (50.0-70.0); Platelet Count Result 158 K/mm3 (150-420); White Blood Count 8.3 K/mm3 (4.8-10.8)
[2021-06-09 07:36] LABS: Creatinine Urine 71.15 mg/dL (40-278); Total Protein Urine Random 66.1 mg/dL (0.0-11.9); Ur Ttl Prot Creatinine Ratio 0.93 mg/mg (0-0.20)
[2021-06-09 08:14] LABS: Albumin Level 3.2 g/dL (3.4-5.0); Anion Gap 6 mmol/L (8-16); Blood Urea Nitrogen 26 mg/dL (7-18); Carbon Dioxide 30 mmol/L (21-32); Chloride 104 mmol/L (98-108); Estimated Glomerular Filt Rate > 60; Glucose 138 mg/dL (70-99); Osmolality Calculated 296 mOsm/kg (285-295); Phosphorus 2.6 mg/dL (2.6-4.7); Potassium 3.8 mmol/L (3.5-5.1); Sodium 140 mmol/L (136-145)
[2021-06-11 15:35] LABS: Tacrolimus Prograf 4.9 mcg/L
[2021-06-16 10:02] LABS: BK Virus Specimen Source Plasma
== END 2021-06-09 07:13 | disposition home or self-care (01) ==
LOC: CHSLAB 07:15
PROVIDERS: PCP Internal Medicine
DX: Z94.0 Kidney transplant status (principal); N39.0 Urinary tract infection, site not specified; Z79.899 Other long term (current) drug therapy; B34.8 Other viral infections of unspecified site
CPT/HCPCS: 36415; 80069; 80197; 82570; 84156; 85025; 87799

== ENCOUNTER 2021-06-13 13:56 | Outpatient (CLI) | payer MEDICARE, SELFPAY ==
[2021-06-13 14:34] LABS: Anion Gap 5 mmol/L (8-16); Blood Urea Nitrogen 23 mg/dL (7-18); Calcium 9.4 mg/dL (8.5-10.1); Carbon Dioxide 28 mmol/L (21-32); Chloride 105 mmol/L (98-108); Estimated Glomerular Filt Rate > 60; Glucose 147 mg/dL (70-99); Osmolality Calculated 292 mOsm/kg (285-295); Potassium 3.8 mmol/L (3.5-5.1); Sodium 138 mmol/L (136-145)
[2021-06-16 02:17] LABS: Insulin Level Total 10.8 uIU/mL (<=19.6)
[2021-06-16 13:18] LABS: C-Peptide 1.43 ng/mL (0.80-3.85)
[2021-06-17 13:18] LABS: Glutamic acid decarboxylase AA <5 IU/mL (<5)
[2021-06-17 14:49] LABS: Vitamin D 25 Hydroxy 16 ng/mL (30-100)
[2021-06-25 23:42] LABS: Islet Cell Antibody Screen NEGATIVE (NEGATIVE)
== END 2021-06-13 13:57 | disposition home or self-care (01) ==
LOC: CHSLAB 14:01
PROVIDERS: PCP Internal Medicine
DX: E11.69 Type 2 diabetes mellitus with other specified complication (principal); N25.0 Renal osteodystrophy; E55.9 Vitamin D deficiency, unspecified
CPT/HCPCS: 36415; 80048; 82306; 83525; 84681; 86341

== ENCOUNTER 2021-06-27 07:34 | Outpatient (CLI) | payer MEDICARE, SELFPAY ==
[2021-06-27 08:37] LABS: Basophils Absolute Auto 0.01 K/mm3 (0.00-0.10); Basophils Percent Auto 0.2 % (0.0-1.0); Eosinophils Absolute Auto 0.01 K/mm3 (0.02-0.50); Eosinophils Percent Auto 0.2 % (1.0-6.0); Hematocrit 47.7 % (40.0-54.0); Hemoglobin 15.3 g/dL (14.0-18.0); Immature Granulocyte Absolute 0.02 K/mm3 (0.00-0.00); Immature Granulocyte Percent A 0.3 % (0.0-0.0); Lymphocytes Percent Auto 14.6 % (18.0-42.0); Mean Corpuscular HGB Conc 32.1 g/dL (32.0-36.0); Mean Corpuscular Volume 90.3 fL (78.0-102.0); Mean Platelet Volume 8.9 fl (8.7-11.0); Monocytes Absolute Auto 0.53 K/mm3 (0.10-0.90); Monocytes Percent Auto 8.6 % (2.0-11.0); Neutrophils Absolute Auto 4.7 K/mm3 (1.7-7.2); Neutrophils Percent Auto 76.1 % (50.0-70.0); Platelet Count Result 244 K/mm3 (150-420); Red Blood Count 5.28 M/mm3 (4.70-6.10); Red Cell Distribution Width 15.1 % (11.6-14.4); White Blood Count 6.2 K/mm3 (4.8-10.8)
[2021-06-27 08:51] LABS: Albumin Level 3.5 g/dL (3.4-5.0); Anion Gap 6 mmol/L (8-16); Blood Urea Nitrogen 18 mg/dL (7-18); Calcium 9.5 mg/dL (8.5-10.1); Carbon Dioxide 26 mmol/L (21-32); Chloride 105 mmol/L (98-108); Creatinine Urine 83.07 mg/dL (40-278); Estimated Glomerular Filt Rate > 60; Glucose 126 mg/dL (70-99); Osmolality Calculated 287 mOsm/kg (285-295); Phosphorus 2.9 mg/dL (2.6-4.7); Potassium 3.4 mmol/L (3.5-5.1); Sodium 137 mmol/L (136-145); Total Protein Urine Random 44.3 mg/dL (0.0-11.9); Ur Ttl Prot Creatinine Ratio 0.53 mg/mg (0-0.20)
[2021-07-01 08:06] LABS: Tacrolimus Prograf 4.5 mcg/L
[2021-07-04 11:23] LABS: BK Virus Specimen Source Plasma
== END 2021-06-27 07:35 | disposition home or self-care (01) ==
LOC: CHSLAB 07:39
PROVIDERS: PCP Internal Medicine; Visit Provider Internal Medicine
DX: B34.8 Other viral infections of unspecified site (principal); Z94.0 Kidney transplant status; Z79.899 Other long term (current) drug therapy
CPT/HCPCS: 36415; 80069; 80197; 82570; 84156; 85025; 87799

== ENCOUNTER 2021-07-09 07:24 | Outpatient (CLI) | payer MEDICARE, SELFPAY ==
[2021-07-09 07:40] LABS: Basophils Absolute Auto 0.01 K/mm3 (0.00-0.10); Basophils Percent Auto 0.1 % (0.0-1.0); Eosinophils Absolute Auto 0.02 K/mm3 (0.02-0.50); Eosinophils Percent Auto 0.3 % (1.0-6.0); Hematocrit 46.5 % (40.0-54.0); Hemoglobin 15.2 g/dL (14.0-18.0); Immature Granulocyte Absolute 0.04 K/mm3 (0.00-0.00); Immature Granulocyte Percent A 0.5 % (0.0-0.0); Lymphocytes Absolute Auto 1.03 K/mm3 (1.10-4.50); Lymphocytes Percent Auto 13.7 % (18.0-42.0); Mean Corpuscular HGB Conc 32.7 g/dL (32.0-36.0); Mean Corpuscular Hemoglobin 29.5 pg (27.0-31.0); Mean Corpuscular Volume 90.1 fL (78.0-102.0); Mean Platelet Volume 8.7 fl (8.7-11.0); Monocytes Absolute Auto 0.68 K/mm3 (0.10-0.90); Neutrophils Absolute Auto 5.8 K/mm3 (1.7-7.2); Neutrophils Percent Auto 76.4 % (50.0-70.0); Platelet Count Result 237 K/mm3 (150-420); Red Blood Count 5.16 M/mm3 (4.70-6.10); Red Cell Distribution Width 14.5 % (11.6-14.4); White Blood Count 7.5 K/mm3 (4.8-10.8)
[2021-07-09 07:49] LABS: Creatinine Urine 119.07 mg/dL (40-278); Total Protein Urine Random 46.8 mg/dL (0.0-11.9); Ur Ttl Prot Creatinine Ratio 0.39 mg/mg (0-0.20)
[2021-07-09 08:07] LABS: Albumin Level 3.7 g/dL (3.4-5.0); Anion Gap 8 mmol/L (8-16); Blood Urea Nitrogen 21 mg/dL (7-18); Calcium 9.7 mg/dL (8.5-10.1); Carbon Dioxide 27 mmol/L (21-32); Chloride 104 mmol/L (98-108); Estimated Glomerular Filt Rate 59; Glucose 109 mg/dL (70-99); Osmolality Calculated 292 mOsm/kg (285-295); Phosphorus 3.5 mg/dL (2.6-4.7); Potassium 3.4 mmol/L (3.5-5.1); Sodium 139 mmol/L (136-145)
[2021-07-11 10:27] LABS: BK Virus DNA, QN PCR log Not Detected Log cps/mL; BK Virus Specimen Source Whole Blood
[2021-07-12 13:25] LABS: Tacrolimus Prograf 4.3 mcg/L
== END 2021-07-09 07:25 | disposition home or self-care (01) ==
LOC: CHSLAB 07:27
PROVIDERS: PCP Internal Medicine; Visit Provider Internal Medicine
DX: B34.8 Other viral infections of unspecified site (principal)
CPT/HCPCS: 36415; 80069; 80197; 82570; 84156; 85025; 87799

== ENCOUNTER 2021-07-23 08:13 | Outpatient (CLI) | payer MEDICARE, SELFPAY ==
[2021-07-23 08:35] LABS: Eosinophils Absolute Auto 0.02 K/mm3 (0.02-0.50); Eosinophils Percent Auto 0.3 % (1.0-6.0); Hematocrit 47.1 % (40.0-54.0); Hemoglobin 15.4 g/dL (14.0-18.0); Immature Granulocyte Absolute 0.03 K/mm3 (0.00-0.00); Immature Granulocyte Percent A 0.4 % (0.0-0.0); Lymphocytes Absolute Auto 0.95 K/mm3 (1.10-4.50); Lymphocytes Percent Auto 14.1 % (18.0-42.0); Mean Corpuscular HGB Conc 32.7 g/dL (32.0-36.0); Mean Corpuscular Hemoglobin 29.4 pg (27.0-31.0); Mean Corpuscular Volume 89.9 fL (78.0-102.0); Mean Platelet Volume 8.8 fl (8.7-11.0); Monocytes Absolute Auto 0.63 K/mm3 (0.10-0.90); Monocytes Percent Auto 9.4 % (2.0-11.0); Neutrophils Absolute Auto 5.1 K/mm3 (1.7-7.2); Neutrophils Percent Auto 75.8 % (50.0-70.0); Platelet Count Result 213 K/mm3 (150-420); Red Blood Count 5.24 M/mm3 (4.70-6.10); Red Cell Distribution Width 14.6 % (11.6-14.4); White Blood Count 6.7 K/mm3 (4.8-10.8)
[2021-07-23 08:52] LABS: Creatinine Urine 83.17 mg/dL (40-278); Total Protein Urine Random 30.4 mg/dL (0.0-11.9); Ur Ttl Prot Creatinine Ratio 0.37 mg/mg (0-0.20)
[2021-07-23 08:56] LABS: Albumin Level 3.7 g/dL (3.4-5.0); Anion Gap 6 mmol/L (8-16); Blood Urea Nitrogen 19 mg/dL (7-18); Calcium 9.6 mg/dL (8.5-10.1); Carbon Dioxide 29 mmol/L (21-32); Chloride 104 mmol/L (98-108); Estimated Glomerular Filt Rate > 60; Glucose 107 mg/dL (70-99); Osmolality Calculated 290 mOsm/kg (285-295); Potassium 3.3 mmol/L (3.5-5.1); Sodium 139 mmol/L (136-145)
[2021-07-25 14:21] LABS: BK Virus Specimen Source Plasma
[2021-07-26 08:39] LABS: Tacrolimus Prograf 7.4 mcg/L
== END 2021-07-23 08:14 | disposition home or self-care (01) ==
LOC: CHSLAB 08:16
PROVIDERS: PCP Internal Medicine; Visit Provider Internal Medicine
DX: B34.8 Other viral infections of unspecified site (principal); Z94.0 Kidney transplant status; N39.0 Urinary tract infection, site not specified; Z79.899 Other long term (current) drug therapy; E10.65 Type 1 diabetes mellitus with hyperglycemia; E78.2 Mixed hyperlipidemia
CPT/HCPCS: 36415; 80069; 80197; 82570; 84156; 85025; 87799

== ENCOUNTER 2021-08-06 08:29 | Outpatient (CLI) | payer MEDICARE, SELFPAY ==
[2021-08-06 08:53] LABS: Basophils Absolute Auto 0.01 K/mm3 (0.00-0.10); Basophils Percent Auto 0.2 % (0.0-1.0); Eosinophils Absolute Auto 0.02 K/mm3 (0.02-0.50); Eosinophils Percent Auto 0.3 % (1.0-6.0); Hematocrit 46.6 % (40.0-54.0); Hemoglobin 15.4 g/dL (14.0-18.0); Immature Granulocyte Absolute 0.02 K/mm3 (0.00-0.00); Immature Granulocyte Percent A 0.3 % (0.0-0.0); Lymphocytes Absolute Auto 1.01 K/mm3 (1.10-4.50); Lymphocytes Percent Auto 15.4 % (18.0-42.0); Mean Corpuscular Hemoglobin 29.7 pg (27.0-31.0); Mean Corpuscular Volume 89.8 fL (78.0-102.0); Mean Platelet Volume 8.8 fl (8.7-11.0); Monocytes Absolute Auto 0.54 K/mm3 (0.10-0.90); Monocytes Percent Auto 8.2 % (2.0-11.0); Neutrophils Percent Auto 75.6 % (50.0-70.0); Platelet Count Result 229 K/mm3 (150-420); Red Blood Count 5.19 M/mm3 (4.70-6.10); Red Cell Distribution Width 14.3 % (11.6-14.4); White Blood Count 6.6 K/mm3 (4.8-10.8)
[2021-08-06 09:04] LABS: Creatinine Urine 143.97 mg/dL (40-278); Total Protein Urine Random 66.3 mg/dL (0.0-11.9); Ur Ttl Prot Creatinine Ratio 0.46 mg/mg (0-0.20)
[2021-08-06 09:12] LABS: Albumin Level 3.7 g/dL (3.4-5.0); Anion Gap 7 mmol/L (8-16); Blood Urea Nitrogen 18 mg/dL (7-18); Calcium 9.6 mg/dL (8.5-10.1); Carbon Dioxide 28 mmol/L (21-32); Chloride 107 mmol/L (98-108); Estimated Glomerular Filt Rate 59; Glucose 103 mg/dL (70-99); Osmolality Calculated 295 mOsm/kg (285-295); Phosphorus 3.1 mg/dL (2.6-4.7); Potassium 3.1 mmol/L (3.5-5.1); Sodium 142 mmol/L (136-145)
[2021-08-08 11:31] LABS: BK Virus DNA, QN PCR log Not Detected Log cps/mL; BK Virus Specimen Source Plasma
[2021-08-09 00:42] LABS: Tacrolimus Prograf 5.6 mcg/L
== END 2021-08-06 08:30 | disposition home or self-care (01) ==
LOC: CHSLAB 08:34
PROVIDERS: PCP Internal Medicine
DX: B34.8 Other viral infections of unspecified site (principal); Z94.0 Kidney transplant status; N39.0 Urinary tract infection, site not specified; Z79.899 Other long term (current) drug therapy
CPT/HCPCS: 36415; 80069; 80197; 82570; 84156; 85025; 87799

== ENCOUNTER 2021-08-20 07:25 | Outpatient (CLI) | payer MEDICARE, SELFPAY ==
[2021-08-20 07:44] LABS: Basophils Absolute Auto 0.01 K/mm3 (0.00-0.10); Basophils Percent Auto 0.1 % (0.0-1.0); Eosinophils Absolute Auto 0.02 K/mm3 (0.02-0.50); Eosinophils Percent Auto 0.3 % (1.0-6.0); Hematocrit 47.3 % (40.0-54.0); Hemoglobin 15.6 g/dL (14.0-18.0); Immature Granulocyte Absolute 0.03 K/mm3 (0.00-0.00); Immature Granulocyte Percent A 0.4 % (0.0-0.0); Lymphocytes Absolute Auto 0.97 K/mm3 (1.10-4.50); Lymphocytes Percent Auto 13.9 % (18.0-42.0); Mean Corpuscular Hemoglobin 29.8 pg (27.0-31.0); Mean Corpuscular Volume 90.3 fL (78.0-102.0); Monocytes Absolute Auto 0.63 K/mm3 (0.10-0.90); Neutrophils Absolute Auto 5.3 K/mm3 (1.7-7.2); Neutrophils Percent Auto 76.3 % (50.0-70.0); Platelet Count Result 246 K/mm3 (150-420); Red Blood Count 5.24 M/mm3 (4.70-6.10); Red Cell Distribution Width 14.3 % (11.6-14.4)
[2021-08-20 07:58] LABS: Hemoglobin A1C 5.4 % (<5.7)
[2021-08-20 08:00] LABS: Alanine Aminotransferase 28 U/L (16-63); Albumin Level 3.9 g/dL (3.4-5.0); Alkaline Phosphatase 88 U/L (46-116); Anion Gap 7 mmol/L (8-16); Aspartate Amino Transferase 13 U/L (15-37); Bilirubin Direct 0.2 mg/dL (0-0.2); Bilirubin,Total 1.1 mg/dL (0.00-1.00); Blood Urea Nitrogen 24 mg/dL (7-18); Calcium 9.6 mg/dL (8.5-10.1); Carbon Dioxide 29 mmol/L (21-32); Chloride 105 mmol/L (98-108); Cholesterol 120 mg/dL (0-200); Estimated Glomerular Filt Rate 56; Glucose 100 mg/dL (70-99); HDL Direct 45 mg/dL (40-60); LDL Cholesterol Calculated 41 mg/dL (<130); Osmolality Calculated 296 mOsm/kg (285-295); Phosphorus 3.7 mg/dL (2.6-4.7); Potassium 3.5 mmol/L (3.5-5.1); Sodium 141 mmol/L (136-145); Total Protein 6.6 g/dL (6.4-8.2); Triglycerides 171 mg/dL (0-150)
[2021-08-20 08:03] LABS: Creatinine Urine 78.81 mg/dL (40-278); Total Protein Urine Random 34.8 mg/dL (0.0-11.9); Ur Ttl Prot Creatinine Ratio 0.44 mg/mg (0-0.20)
[2021-08-22 02:10] LABS: BK Virus Specimen Source Plasma
[2021-08-23 01:42] LABS: Tacrolimus Prograf 9.7 mcg/L
== END 2021-08-20 07:26 | disposition home or self-care (01) ==
LOC: CHSLAB 07:26
PROVIDERS: PCP Internal Medicine; Visit Provider Internal Medicine
DX: Z94.0 Kidney transplant status (principal); E10.65 Type 1 diabetes mellitus with hyperglycemia; E78.2 Mixed hyperlipidemia; N39.0 Urinary tract infection, site not specified; Z79.899 Other long term (current) drug therapy; B34.8 Other viral infections of unspecified site
CPT/HCPCS: 36415; 80061; 80069; 80076; 80197; 82570; 83036; 84156; 85025; 87799

== ENCOUNTER 2021-09-11 09:11 | Outpatient (CLI) | payer MEDICARE, SELFPAY ==
[2021-09-11 09:42] LABS: Basophils Absolute Auto 0.01 K/mm3 (0.00-0.10); Basophils Percent Auto 0.2 % (0.0-1.0); Eosinophils Absolute Auto 0.02 K/mm3 (0.02-0.50); Eosinophils Percent Auto 0.4 % (1.0-6.0); Hematocrit 46.4 % (40.0-54.0); Hemoglobin 14.9 g/dL (14.0-18.0); Immature Granulocyte Absolute 0.01 K/mm3 (0.00-0.00); Immature Granulocyte Percent A 0.2 % (0.0-0.0); Lymphocytes Absolute Auto 1.05 K/mm3 (1.10-4.50); Lymphocytes Percent Auto 20.6 % (18.0-42.0); Mean Corpuscular HGB Conc 32.1 g/dL (32.0-36.0); Mean Corpuscular Hemoglobin 29.2 pg (27.0-31.0); Mean Corpuscular Volume 90.8 fL (78.0-102.0); Mean Platelet Volume 9.1 fl (8.7-11.0); Monocytes Absolute Auto 0.54 K/mm3 (0.10-0.90); Monocytes Percent Auto 10.6 % (2.0-11.0); Neutrophils Absolute Auto 3.5 K/mm3 (1.7-7.2); Platelet Count Result 214 K/mm3 (150-420); Red Blood Count 5.11 M/mm3 (4.70-6.10); Red Cell Distribution Width 14.1 % (11.6-14.4); White Blood Count 5.1 K/mm3 (4.8-10.8)
[2021-09-11 10:43] LABS: Creatinine Urine 109.06 mg/dL (40-278); Total Protein Urine Random 40.6 mg/dL (0.0-11.9); Ur Ttl Prot Creatinine Ratio 0.37 mg/mg (0-0.20)
[2021-09-11 10:46] LABS: Albumin Level 3.8 g/dL (3.4-5.0); Anion Gap 8 mmol/L (8-16); Blood Urea Nitrogen 28 mg/dL (7-18); Calcium 9.5 mg/dL (8.5-10.1); Carbon Dioxide 26 mmol/L (21-32); Chloride 107 mmol/L (98-108); Estimated Glomerular Filt Rate 51; Glucose 111 mg/dL (70-99); Osmolality Calculated 298 mOsm/kg (285-295); Phosphorus 3.3 mg/dL (2.6-4.7); Potassium 3.2 mmol/L (3.5-5.1); Sodium 141 mmol/L (136-145)
[2021-09-14 06:42] LABS: BK Virus Specimen Source Plasma; Tacrolimus Prograf 6.5 mcg/L
== END 2021-09-11 09:12 | disposition home or self-care (01) ==
LOC: CHSLAB 09:17
PROVIDERS: PCP Internal Medicine; Visit Provider Internal Medicine
DX: Z94.0 Kidney transplant status (principal); Z79.899 Other long term (current) drug therapy; B34.8 Other viral infections of unspecified site
CPT/HCPCS: 36415; 80069; 80197; 82570; 84156; 85025; 87799

== ENCOUNTER 2021-09-24 08:24 | Outpatient (CLI) | payer MEDICARE, SELFPAY ==
[2021-09-24 08:52] LABS: Basophils Absolute Auto 0.01 K/mm3 (0.00-0.10); Basophils Percent Auto 0.1 % (0.0-1.0); Eosinophils Absolute Auto 0.02 K/mm3 (0.02-0.50); Eosinophils Percent Auto 0.3 % (1.0-6.0); Hemoglobin 15.7 g/dL (14.0-18.0); Immature Granulocyte Absolute 0.02 K/mm3 (0.00-0.00); Immature Granulocyte Percent A 0.3 % (0.0-0.0); Lymphocytes Absolute Auto 1.04 K/mm3 (1.10-4.50); Lymphocytes Percent Auto 15.5 % (18.0-42.0); Mean Corpuscular HGB Conc 32.7 g/dL (32.0-36.0); Mean Corpuscular Hemoglobin 29.6 pg (27.0-31.0); Mean Corpuscular Volume 90.6 fL (78.0-102.0); Mean Platelet Volume 8.9 fl (8.7-11.0); Monocytes Absolute Auto 0.62 K/mm3 (0.10-0.90); Monocytes Percent Auto 9.3 % (2.0-11.0); Neutrophils Percent Auto 74.5 % (50.0-70.0); Platelet Count Result 218 K/mm3 (150-420); Red Cell Distribution Width 14.1 % (11.6-14.4); White Blood Count 6.7 K/mm3 (4.8-10.8)
[2021-09-24 09:10] LABS: Total Protein Urine Random 36.8 mg/dL (0.0-11.9); Ur Ttl Prot Creatinine Ratio 0.43 mg/mg (0-0.20)
[2021-09-24 09:32] LABS: Albumin Level 4.1 g/dL (3.4-5.0); Anion Gap 9 mmol/L (8-16); Blood Urea Nitrogen 28 mg/dL (7-18); Calcium 9.7 mg/dL (8.5-10.1); Carbon Dioxide 28 mmol/L (21-32); Chloride 105 mmol/L (98-108); Estimated Glomerular Filt Rate 51; Glucose 110 mg/dL (70-99); Osmolality Calculated 300 mOsm/kg (285-295); Phosphorus 3.3 mg/dL (2.6-4.7); Potassium 3.9 mmol/L (3.5-5.1); Sodium 142 mmol/L (136-145)
[2021-09-26 20:22] LABS: BK Virus DNA, QN PCR log Not Detected Log cps/mL; BK Virus Specimen Source Whole Blood
[2021-09-27 13:29] LABS: Tacrolimus Prograf 8.4 mcg/L
== END 2021-09-24 08:25 | disposition home or self-care (01) ==
LOC: CHSLAB 08:27
PROVIDERS: PCP Internal Medicine
DX: Z94.0 Kidney transplant status (principal); N39.0 Urinary tract infection, site not specified; Z79.899 Other long term (current) drug therapy; B34.8 Other viral infections of unspecified site
CPT/HCPCS: 36415; 80069; 80197; 82570; 84156; 85025; 87799

== ENCOUNTER 2021-10-08 07:25 | Outpatient (CLI) | payer MEDICARE, SELFPAY ==
[2021-10-08 07:43] LABS: Basophils Absolute Auto 0.01 K/mm3 (0.00-0.10); Basophils Percent Auto 0.1 % (0.0-1.0); Eosinophils Absolute Auto 0.02 K/mm3 (0.02-0.50); Eosinophils Percent Auto 0.2 % (1.0-6.0); Hematocrit 46.8 % (40.0-54.0); Hemoglobin 15.2 g/dL (14.0-18.0); Immature Granulocyte Absolute 0.02 K/mm3 (0.00-0.00); Immature Granulocyte Percent A 0.2 % (0.0-0.0); Lymphocytes Absolute Auto 1.04 K/mm3 (1.10-4.50); Lymphocytes Percent Auto 12.4 % (18.0-42.0); Mean Corpuscular HGB Conc 32.5 g/dL (32.0-36.0); Mean Corpuscular Hemoglobin 29.6 pg (27.0-31.0); Mean Corpuscular Volume 91.2 fL (78.0-102.0); Mean Platelet Volume 9.2 fl (8.7-11.0); Monocytes Absolute Auto 0.69 K/mm3 (0.10-0.90); Monocytes Percent Auto 8.2 % (2.0-11.0); Neutrophils Absolute Auto 6.6 K/mm3 (1.7-7.2); Neutrophils Percent Auto 78.9 % (50.0-70.0); Platelet Count Result 232 K/mm3 (150-420); Red Blood Count 5.13 M/mm3 (4.70-6.10); Red Cell Distribution Width 14.3 % (11.6-14.4); White Blood Count 8.4 K/mm3 (4.8-10.8)
[2021-10-08 07:48] LABS: Creatinine Urine 91.22 mg/dL (40-278); Total Protein Urine Random 47.5 mg/dL (0.0-11.9); Ur Ttl Prot Creatinine Ratio 0.52 mg/mg (0-0.20)
[2021-10-08 08:09] LABS: Albumin Level 3.8 g/dL (3.4-5.0); Anion Gap 4 mmol/L (8-16); Blood Urea Nitrogen 27 mg/dL (7-18); Calcium 9.6 mg/dL (8.5-10.1); Carbon Dioxide 28 mmol/L (21-32); Chloride 105 mmol/L (98-108); Estimated Glomerular Filt Rate 51; Glucose 123 mg/dL (70-99); Osmolality Calculated 290 mOsm/kg (285-295); Phosphorus 3.8 mg/dL (2.6-4.7); Potassium 3.5 mmol/L (3.5-5.1); Sodium 137 mmol/L (136-145)
[2021-10-10 13:49] LABS: BK Virus Specimen Source Whole Blood
[2021-10-11 19:31] LABS: Tacrolimus Prograf 7.8 mcg/L
== END 2021-10-08 07:26 | disposition home or self-care (01) ==
LOC: CHSLAB 07:28
PROVIDERS: PCP Internal Medicine; Visit Provider Internal Medicine
DX: B34.8 Other viral infections of unspecified site (principal); Z94.0 Kidney transplant status; N39.0 Urinary tract infection, site not specified; Z79.899 Other long term (current) drug therapy
CPT/HCPCS: 36415; 80069; 80197; 82570; 84156; 85025; 87799

== ENCOUNTER 2021-10-22 09:06 | Outpatient (CLI) | payer MEDICARE, SELFPAY ==
[2021-10-22 09:29] LABS: Basophils Absolute Auto 0.02 K/mm3 (0.00-0.10); Basophils Percent Auto 0.2 % (0.0-1.0); Eosinophils Absolute Auto 0.02 K/mm3 (0.02-0.50); Eosinophils Percent Auto 0.2 % (1.0-6.0); Hematocrit 47.4 % (40.0-54.0); Hemoglobin 15.1 g/dL (14.0-18.0); Immature Granulocyte Absolute 0.02 K/mm3 (0.00-0.00); Immature Granulocyte Percent A 0.2 % (0.0-0.0); Lymphocytes Absolute Auto 1.42 K/mm3 (1.10-4.50); Lymphocytes Percent Auto 17.2 % (18.0-42.0); Mean Corpuscular HGB Conc 31.9 g/dL (32.0-36.0); Mean Corpuscular Hemoglobin 29.1 pg (27.0-31.0); Mean Corpuscular Volume 91.3 fL (78.0-102.0); Monocytes Absolute Auto 0.72 K/mm3 (0.10-0.90); Monocytes Percent Auto 8.7 % (2.0-11.0); Neutrophils Absolute Auto 6.1 K/mm3 (1.7-7.2); Neutrophils Percent Auto 73.5 % (50.0-70.0); Platelet Count Result 222 K/mm3 (150-420); Red Blood Count 5.19 M/mm3 (4.70-6.10); Red Cell Distribution Width 14.2 % (11.6-14.4); White Blood Count 8.3 K/mm3 (4.8-10.8)
[2021-10-22 09:56] LABS: Albumin Level 2.8 g/dL (3.4-5.0); Anion Gap 10 mmol/L (8-16); Blood Urea Nitrogen 28 mg/dL (7-18); Calcium 9.5 mg/dL (8.5-10.1); Carbon Dioxide 20 mmol/L (21-32); Chloride 104 mmol/L (98-108); Estimated Glomerular Filt Rate 55; Glucose 119 mg/dL (70-99); Osmolality Calculated 284 mOsm/kg (285-295); Phosphorus 3.3 mg/dL (2.6-4.7); Potassium 3.3 mmol/L (3.5-5.1); Sodium 134 mmol/L (136-145)
[2021-10-22 10:00] LABS: Creatinine Urine 90.72 mg/dL (40-278); Total Protein Urine Random 44.9 mg/dL (0.0-11.9); Ur Ttl Prot Creatinine Ratio 0.49 mg/mg (0-0.20)
[2021-10-24 02:15] LABS: BK Virus Specimen Source Plasma
[2021-10-25 05:27] LABS: Tacrolimus Prograf 6.5 mcg/L
== END 2021-10-22 09:07 | disposition home or self-care (01) ==
LOC: CHSLAB 09:11
PROVIDERS: PCP Internal Medicine
DX: Z94.0 Kidney transplant status (principal); N39.0 Urinary tract infection, site not specified; Z79.899 Other long term (current) drug therapy; B34.8 Other viral infections of unspecified site
CPT/HCPCS: 36415; 80069; 80197; 82570; 84156; 85025; 87799

== ENCOUNTER 2021-11-18 07:28 | Outpatient (CLI) | payer MEDICARE, SELFPAY ==
[2021-11-18 08:05] LABS: Basophils Absolute Auto 0.01 K/mm3 (0.00-0.10); Basophils Percent Auto 0.1 % (0.0-1.0); Eosinophils Absolute Auto 0.02 K/mm3 (0.02-0.50); Eosinophils Percent Auto 0.3 % (1.0-6.0); Hematocrit 49.8 % (40.0-54.0); Hemoglobin 15.7 g/dL (14.0-18.0); Immature Granulocyte Absolute 0.02 K/mm3 (0.00-0.00); Immature Granulocyte Percent A 0.3 % (0.0-0.0); Lymphocytes Absolute Auto 1.26 K/mm3 (1.10-4.50); Lymphocytes Percent Auto 17.1 % (18.0-42.0); Mean Corpuscular HGB Conc 31.5 g/dL (32.0-36.0); Mean Corpuscular Hemoglobin 28.5 pg (27.0-31.0); Mean Corpuscular Volume 90.4 fL (78.0-102.0); Mean Platelet Volume 9.3 fl (8.7-11.0); Monocytes Percent Auto 9.5 % (2.0-11.0); Neutrophils Absolute Auto 5.4 K/mm3 (1.7-7.2); Neutrophils Percent Auto 72.7 % (50.0-70.0); Platelet Count Result 227 K/mm3 (150-420); Red Blood Count 5.51 M/mm3 (4.70-6.10); Red Cell Distribution Width 14.6 % (11.6-14.4); White Blood Count 7.4 K/mm3 (4.8-10.8)
[2021-11-18 08:20] LABS: Creatinine Urine 84.03 mg/dL (40-278); Total Protein Urine Random 43.1 mg/dL (0.0-11.9); Ur Ttl Prot Creatinine Ratio 0.51 mg/mg (0-0.20)
[2021-11-18 08:32] LABS: Hemoglobin A1C 5.6 % (<5.7)
[2021-11-18 08:52] LABS: Alanine Aminotransferase 42 U/L (16-63); Alkaline Phosphatase 109 U/L (46-116); Anion Gap 6 mmol/L (8-16); Aspartate Amino Transferase 14 U/L (15-37); Bilirubin Direct 0.3 mg/dL (0-0.2); Bilirubin,Total 1.6 mg/dL (0.00-1.00); Blood Urea Nitrogen 28 mg/dL (7-18); Calcium 9.7 mg/dL (8.5-10.1); Carbon Dioxide 30 mmol/L (21-32); Chloride 107 mmol/L (98-108); Cholesterol 116 mg/dL (0-200); Estimated Glomerular Filt Rate 49; Glucose 127 mg/dL (70-99); HDL Direct 47 mg/dL (40-60); LDL Cholesterol Calculated 45 mg/dL (<130); Osmolality Calculated 303 mOsm/kg (285-295); Phosphorus 3.5 mg/dL (2.6-4.7); Potassium 4.4 mmol/L (3.5-5.1); Prostate Specific Antigen 1.4 ng/mL (< OR = 4.0); Sodium 143 mmol/L (136-145); Total Protein 6.3 g/dL (6.4-8.2); Triglycerides 121 mg/dL (0-150)
[2021-11-20 21:47] LABS: Tacrolimus Prograf 7.8 mcg/L
== END 2021-11-18 07:29 | disposition home or self-care (01) ==
PROVIDERS: PCP Internal Medicine; Visit Provider Internal Medicine
DX: Z94.0 Kidney transplant status (principal); E10.65 Type 1 diabetes mellitus with hyperglycemia; E78.2 Mixed hyperlipidemia; N39.0 Urinary tract infection, site not specified; Z79.899 Other long term (current) drug therapy; Z12.5 Encounter for screening for malignant neoplasm of prostate
CPT/HCPCS: 36415; 80061; 80069; 80076; 80197; 82570; 83036; 84153; 84156; 85025; G0103

== ENCOUNTER 2021-12-09 00:25 | Day surgery (SDC) | payer MEDICARE, SELFPAY ==
[2021-11-25 14:16] VITALS: BMI 28.5
[2021-12-09 09:45] VITALS: BP 126/66; PULSE 57; RESP 17; TEMP 36.3; O2SAT 100
[2021-12-09 10:06] LABS: Glucose Point of Care 154 mg/dl (65-105)
[2021-12-09] MEDS: LACTATED RINGERS 1,000 ML 150 ML IV CONT (10:09)
--- NOTE | 2021-12-09 10:12 | WPDANESEPPF ---
Anes - Initial Pre Proc Eval Procedure: Operation Date: 12/09/21 11:00 Proposed Procedures p Screening Colonoscopy - Jin Hilton MD Date/Time: 12/09/21 10:12 Surgeon: Jin Hilton MD Pre Op Diagnosis: neoplasm screening Patient Data Age: 61 Gender: M Height: 1.7 m Weight: 81.3 kg Last Vital Signs Temp 36.3 C L 12/09/21 09:45 Pulse 57 L 12/09/21 09:45 Resp 17 12/09/21 09:45 BP 126/66 12/09/21 09:45 Pulse Ox 100 12/09/21 09:45 O2 Del Method Room Air 12/09/21 09:45 Allergies Allergy/AdvReac Type Severity Reaction Status Date / Time duloxetine Allergy Intermediate EXTREME Verified 12/09/21 09:42 NIGHTMARES, HALLUCINATIONS lisinopril Allergy Mild Cough Verified 12/09/21 09:42 prednisone Allergy Mild Rash Verified 12/09/21 09:42 Home Medications Medication Instructions Recorded Confirmed Type albuterol sulfate 90 mcg/actuation 1 puff inhalation Q6H PRN Dyspnea 11/25/21 11/25/21 History aerosol inhaler allopurinol 300 mg tablet 300 mg PO DAILY 11/25/21 11/25/21 History amlodipine 10 mg tablet 10 mg PO DAILY 11/25/21 11/25/21 History aspirin 81 mg tablet,delayed 81 mg PO DAILY 11/25/21 11/25/21 History release atorvastatin 20 mg tablet 20 mg PO DAILY 11/25/21 11/25/21 History carvedilol 25 mg tablet 25 mg PO DAILY 11/25/21 11/25/21 History empagliflozin 10 mg tablet 10 mg PO DAILY 11/25/21 11/25/21 History (Jardiance) ergocalciferol (vitamin D2) 1,000 1,000 unit PO DAILY 11/25/21 11/25/21 History unit capsule hydralazine 100 mg tablet 100 mg PO BID 11/25/21 11/25/21 History insulin aspart U-100 100 unit/mL 4 unit subcut PC 11/25/21 11/25/21 History (3 mL) subcutaneous pen (Novolog Flexpen U-100 Insulin aspart) insulin glargine 100 unit/mL (3 12 unit subcut HS 11/25/21 11/25/21 History mL) subcutaneous pen (Basaglar KwikPen U-100 Insulin) losartan 25 mg tablet 25 mg PO DAILY 11/25/21 11/25/21 History pantoprazole 40 mg tablet,delayed 40 mg PO BID 11/25/21 11/25/21 History release prednisone 5 mg tablet 5 mg PO DAILY 11/25/21 11/25/21 History sennosides 8.6 mg-docusate sodium 1 tablet PO DAILY PRN Constipation 11/25/21 11/25/21 History 50 mg tablet (Senexon-S) tacrolimus 1 mg tablet,extended 1 mg PO DAILY 11/25/21 11/25/21 History release 24 hr (Envarsus XR) tamsulosin 0.4 mg capsule 0.4 mg PO BID 11/25/21 11/25/21 History Laboratory Tests 12/09/21 09:53 POC Capillary Glucose 154 mg/dl H mg/dl (65-105) Patient hx anesthesia problems: none Family hx anesthesia problems: none Results Review: All pre-operative results and documents have been reviewed as part of the pre-operative evaluation. 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 Informed Consent: The patient's anesthetic plan and its attendant risks an
--- NOTE | 2021-12-09 10:33 | PM.HPGS ---
History of Present Illness History of Present Illness Consent: Risks, benefits, and alternatives have been discussed and questions answered. Patient agrees to proceed with procedure. Chief complaint: neoplasm screening Narrative: Zachary Melton is a 61 year old male here for screening colonoscopy, last one 10 years ago Review of Systems Constitutional: Constitutional: Denies headache(s) and Denies weakness Eyes: Eyes: Denies blurry vision ENT: Reports Normal hearing present, Denies headache(s) and Denies neck pain Cardiovascular: Cardiovascular: Denies chest pain and Denies dyspnea Respiratory: Respiratory: Denies dyspnea Gastrointestinal: Gastrointestinal: Reports no additional gastrointestinal complaints Genitourinary: Genitourinary: Denies dysuria Musculoskeletal: Musculoskeletal: Denies neck pain Integumentary/Breasts: Skin/Breast: Denies dry skin Neurologic: Reports Normal hearing present, Denies headache(s) and Denies weakness Psychiatric: Psychiatric: Denies anxiety Endocrine: Endocrine: Denies change in body appearance Hematologic/Lymphatic: Hematologic/Lymphatic: Denies easy bleeding Allergic/Immunologic: Allergic/Immunologic: Denies urticaria PMFSH Past Medical History Medical History (Updated 12/09/21 @ 10:33 by Jin Hilton MD) Adult general medical examination Colon cancer screening Diabetes HTN (hypertension) HEATHER (obstructive sleep apnea) Surgical History Surgical History (Updated 12/09/21 @ 10:13 by Augustin Ortez MD) Renal transplant, status post X 2 Social History Social History Smoking status: Never smoker Alcohol intake: former Substance use: former Substance use type: crack/cocaine Other substance usage details: former addict Living arrangements: with family Spiritual care concerns: No Meds Home Medications and Allergies Home Medications Medication Instructions Recorded Confirmed Type albuterol sulfate 90 mcg/actuation 1 puff inhalation Q6H PRN Dyspnea 11/25/21 11/25/21 History aerosol inhaler allopurinol 300 mg tablet 300 mg PO DAILY 11/25/21 11/25/21 History amlodipine 10 mg tablet 10 mg PO DAILY 11/25/21 11/25/21 History aspirin 81 mg tablet,delayed 81 mg PO DAILY 11/25/21 11/25/21 History release atorvastatin 20 mg tablet 20 mg PO DAILY 11/25/21 11/25/21 History carvedilol 25 mg tablet 25 mg PO DAILY 11/25/21 11/25/21 History empagliflozin 10 mg tablet 10 mg PO DAILY 11/25/21 11/25/21 History (Jardiance) ergocalciferol (vitamin D2) 1,000 1,000 unit PO DAILY 11/25/21 11/25/21 History unit capsule hydralazine 100 mg tablet 100 mg PO BID 11/25/21 11/25/21 History insulin aspart U-100 100 unit/mL 4 unit subcut PC 11/25/21 11/25/21 History (3 mL) subcutaneous pen (Novolog Flexpen U-100 Insulin aspart) insulin glargine 100 unit/mL (3 12 unit subcut HS 11/25/21 11/25/21 History mL) subcutaneous pen (Basaglar KwikPen U-100 Insulin) losartan 25 mg tablet 25 mg PO DAILY 11/25/21 11/25/21 History pantoprazole 40 mg tablet,delayed 40 mg PO BID 11/25/21 11/25/21 History release prednisone 5 mg tablet 5 mg PO DAILY 11/25/21 11/25/21 History sennosides 8.6 mg-docusate sodium 1 tablet PO DAILY PRN Constipation 11/25/21 11/25/21 History 50 mg tablet (Senexon-S) tacrolimus 1 mg tablet,extended 1 mg PO DAILY 11/25/21 11/25/21 History release 24 hr (Envarsus XR) tamsulosin 0.4 mg capsule 0.4 mg PO BID 11/25/21 11/25/21 History Allergies Allergy/AdvReac Type Severity Reaction Status Date / Time duloxetine Allergy Intermediate EXTREME Verified 12/09/21 09:42 NIGHTMARES, HALLUCINATIONS lisinopril Allergy Mild Cough Verified 12/09/21 09:42 prednisone Allergy Mild Rash Verified 12/09/21 09:42 Vital Signs Vital Signs - 24 hr 12/09/21 09:45 Temperature 97.3 F L Pulse Rate 57 L Respiratory Rate 17 Blood Pressure 126/66 Pulse O
[2021-12-09 10:48] VITALS: BP 95/52; PULSE 59; RESP 20; O2SAT 97
--- NOTE | 2021-12-09 10:49 | SUR.OPER ---
Only [address] polyp retrieved [address]. Eng notified.
[2021-12-09 10:58] VITALS: BP 105/56; PULSE 65; RESP 20; O2SAT 99
[2021-12-09 11:08] VITALS: BP 115/62; PULSE 66; RESP 20; O2SAT 100
[2021-12-09 11:15] LABS: Glucose Point of Care 160 mg/dl (65-105)
== END 2021-12-09 11:21 | disposition home or self-care (01) ==
PROVIDERS: PCP Internal Medicine; Visit Provider Internal Medicine Gastroenterology
PROC: 0DJD8ZZ Inspection of Lower Intestinal Tract, Via Natural or Artificial Opening Endoscopic (ICD-10-PCS; CPT 45378; principal; 2021-12-09 11:00)
DX: Z12.11 Encounter for screening for malignant neoplasm of colon (principal); K57.30 Diverticulosis of large intestine without perforation or abscess without bleeding; D12.3 Benign neoplasm of transverse colon; D12.5 Benign neoplasm of sigmoid colon; K64.8 Other hemorrhoids; K63.89 Other specified diseases of intestine; I10 Essential (primary) hypertension; E11.9 Type 2 diabetes mellitus without complications; G47.33 Obstructive sleep apnea (adult) (pediatric); Z94.0 Kidney transplant status; Z79.51 Long term (current) use of inhaled steroids; Z79.82 Long term (current) use of aspirin; Z79.84 Long term (current) use of oral hypoglycemic drugs; Z79.4 Long term (current) use of insulin
CPT/HCPCS: 45385; 82948; 88305; J2704; J7120

== ENCOUNTER 2021-12-22 07:15 | Outpatient (CLI) | payer MEDICARE, SELFPAY ==
[2021-12-22 07:37] LABS: Basophils Absolute Auto 0.02 K/mm3 (0.00-0.10); Basophils Percent Auto 0.2 % (0.0-1.0); Eosinophils Absolute Auto 0.05 K/mm3 (0.02-0.50); Eosinophils Percent Auto 0.6 % (1.0-6.0); Hematocrit 48.7 % (40.0-54.0); Hemoglobin 15.9 g/dL (14.0-18.0); Immature Granulocyte Absolute 0.03 K/mm3 (0.00-0.00); Immature Granulocyte Percent A 0.3 % (0.0-0.0); Lymphocytes Absolute Auto 1.39 K/mm3 (1.10-4.50); Lymphocytes Percent Auto 15.6 % (18.0-42.0); Mean Corpuscular HGB Conc 32.6 g/dL (32.0-36.0); Mean Corpuscular Volume 88.7 fL (78.0-102.0); Mean Platelet Volume 9.1 fl (8.7-11.0); Monocytes Absolute Auto 0.62 K/mm3 (0.10-0.90); Neutrophils Absolute Auto 6.8 K/mm3 (1.7-7.2); Neutrophils Percent Auto 76.3 % (50.0-70.0); Platelet Count Result 237 K/mm3 (150-420); Red Blood Count 5.49 M/mm3 (4.70-6.10); Red Cell Distribution Width 14.3 % (11.6-14.4); White Blood Count 8.9 K/mm3 (4.8-10.8)
[2021-12-22 07:41] LABS: Creatinine Urine 73.87 mg/dL (40-278); Total Protein Urine Random 26.9 mg/dL (0.0-11.9); Ur Ttl Prot Creatinine Ratio 0.36 mg/mg (0-0.20)
[2021-12-22 08:06] LABS: Anion Gap 8 mmol/L (8-16); Blood Urea Nitrogen 35 mg/dL (7-18); Calcium 9.6 mg/dL (8.5-10.1); Carbon Dioxide 27 mmol/L (21-32); Chloride 104 mmol/L (98-108); Estimated Glomerular Filt Rate 44; Glucose 127 mg/dL (70-99); Osmolality Calculated 298 mOsm/kg (285-295); Phosphorus 3.6 mg/dL (2.6-4.7); Potassium 3.6 mmol/L (3.5-5.1); Sodium 139 mmol/L (136-145)
[2021-12-24 22:28] LABS: Tacrolimus Prograf 8.6 mcg/L
== END 2021-12-22 07:16 | disposition home or self-care (01) ==
LOC: CHSLAB 07:19
PROVIDERS: PCP Internal Medicine
DX: Z94.0 Kidney transplant status (principal); E78.5 Hyperlipidemia, unspecified; N39.0 Urinary tract infection, site not specified; Z79.899 Other long term (current) drug therapy
CPT/HCPCS: 36415; 80069; 80197; 82570; 84156; 85025

== ENCOUNTER 2022-01-19 07:33 | Outpatient (CLI) | payer MEDICARE, SELFPAY ==
[2022-01-19 07:59] LABS: Basophils Absolute Auto 0.01 K/mm3 (0.00-0.10); Basophils Percent Auto 0.1 % (0.0-1.0); Eosinophils Absolute Auto 0.07 K/mm3 (0.02-0.50); Eosinophils Percent Auto 0.9 % (1.0-6.0); Hematocrit 47.8 % (40.0-54.0); Hemoglobin 15.6 g/dL (14.0-18.0); Immature Granulocyte Absolute 0.02 K/mm3 (0.00-0.00); Immature Granulocyte Percent A 0.3 % (0.0-0.0); Lymphocytes Absolute Auto 1.35 K/mm3 (1.10-4.50); Mean Corpuscular HGB Conc 32.6 g/dL (32.0-36.0); Mean Corpuscular Hemoglobin 29.1 pg (27.0-31.0); Mean Platelet Volume 9.1 fl (8.7-11.0); Monocytes Absolute Auto 0.64 K/mm3 (0.10-0.90); Monocytes Percent Auto 8.1 % (2.0-11.0); Neutrophils Absolute Auto 5.9 K/mm3 (1.7-7.2); Neutrophils Percent Auto 73.6 % (50.0-70.0); Platelet Count Result 212 K/mm3 (150-420); Red Blood Count 5.37 M/mm3 (4.70-6.10); Red Cell Distribution Width 14.1 % (11.6-14.4)
[2022-01-19 08:11] LABS: Creatinine Urine 131.78 mg/dL (40-278); Total Protein Urine Random 78.3 mg/dL (0.0-11.9); Ur Ttl Prot Creatinine Ratio 0.59 mg/mg (0-0.20)
[2022-01-19 08:47] LABS: Albumin Level 3.9 g/dL (3.4-5.0); Anion Gap 10 mmol/L (8-16); Blood Urea Nitrogen 25 mg/dL (7-18); Calcium 9.6 mg/dL (8.5-10.1); Carbon Dioxide 27 mmol/L (21-32); Chloride 105 mmol/L (98-108); Estimated Glomerular Filt Rate 48; Glucose 141 mg/dL (70-99); Osmolality Calculated 300 mOsm/kg (285-295); Phosphorus 3.6 mg/dL (2.6-4.7); Potassium 3.6 mmol/L (3.5-5.1); Sodium 142 mmol/L (136-145)
[2022-01-22 08:04] LABS: Tacrolimus Prograf 5.3 mcg/L
== END 2022-01-19 07:34 | disposition home or self-care (01) ==
LOC: CHSLAB 07:36
PROVIDERS: PCP Internal Medicine
DX: Z94.0 Kidney transplant status (principal); Z79.899 Other long term (current) drug therapy; E10.65 Type 1 diabetes mellitus with hyperglycemia; E78.2 Mixed hyperlipidemia; N39.0 Urinary tract infection, site not specified; B34.8 Other viral infections of unspecified site
CPT/HCPCS: 36415; 80069; 80197; 82570; 84156; 85025

== ENCOUNTER 2022-02-20 07:28 | Outpatient (CLI) | payer MEDICARE, SELFPAY ==
[2022-02-20 07:50] LABS: Basophils Absolute Auto 0.02 K/mm3 (0.00-0.10); Basophils Percent Auto 0.3 % (0.0-1.0); Eosinophils Absolute Auto 0.04 K/mm3 (0.02-0.50); Eosinophils Percent Auto 0.5 % (1.0-6.0); Hematocrit 49.1 % (40.0-54.0); Immature Granulocyte Absolute 0.02 K/mm3 (0.00-0.00); Immature Granulocyte Percent A 0.3 % (0.0-0.0); Lymphocytes Absolute Auto 1.38 K/mm3 (1.10-4.50); Lymphocytes Percent Auto 17.7 % (18.0-42.0); Mean Corpuscular HGB Conc 32.6 g/dL (32.0-36.0); Mean Corpuscular Hemoglobin 28.8 pg (27.0-31.0); Mean Corpuscular Volume 88.3 fL (78.0-102.0); Mean Platelet Volume 9.2 fl (8.7-11.0); Monocytes Absolute Auto 0.62 K/mm3 (0.10-0.90); Neutrophils Absolute Auto 5.7 K/mm3 (1.7-7.2); Neutrophils Percent Auto 73.2 % (50.0-70.0); Platelet Count Result 235 K/mm3 (150-420); Red Blood Count 5.56 M/mm3 (4.70-6.10); Red Cell Distribution Width 14.4 % (11.6-14.4); White Blood Count 7.8 K/mm3 (4.8-10.8)
[2022-02-20 07:56] LABS: Creatinine Urine 87.54 mg/dL (40-278); Total Protein Urine Random 64.9 mg/dL (0.0-11.9); Ur Ttl Prot Creatinine Ratio 0.74 mg/mg (0-0.20)
[2022-02-20 08:01] LABS: Hemoglobin A1C 6.7 % (<5.7)
[2022-02-20 08:21] LABS: Alanine Aminotransferase 19 U/L (16-63); Albumin Level 3.9 g/dL (3.4-5.0); Alkaline Phosphatase 98 U/L (46-116); Anion Gap 7 mmol/L (8-16); Aspartate Amino Transferase 10 U/L (15-37); Bilirubin Direct 0.2 mg/dL (0-0.2); Bilirubin,Total 1.1 mg/dL (0.00-1.00); Blood Urea Nitrogen 31 mg/dL (7-18); Calcium 9.7 mg/dL (8.5-10.1); Carbon Dioxide 27 mmol/L (21-32); Chloride 106 mmol/L (98-108); Cholesterol 119 mg/dL (0-200); Estimated Glomerular Filt Rate 47; Glucose 124 mg/dL (70-99); HDL Direct 45 mg/dL (40-60); LDL Cholesterol Calculated 44 mg/dL (<130); Osmolality Calculated 297 mOsm/kg (285-295); Phosphorus 3.7 mg/dL (2.6-4.7); Potassium 3.5 mmol/L (3.5-5.1); Sodium 140 mmol/L (136-145); Total Protein 6.6 g/dL (6.4-8.2); Triglycerides 149 mg/dL (0-150)
[2022-02-23 22:51] LABS: Tacrolimus Prograf 8.6 mcg/L
[2022-02-26 17:43] LABS: Vitamin D 25 Hydroxy 39 ng/mL (30-100)
== END 2022-02-20 07:29 | disposition home or self-care (01) ==
LOC: CHSLAB 07:34
PROVIDERS: PCP Internal Medicine
DX: Z94.0 Kidney transplant status (principal); N39.0 Urinary tract infection, site not specified; Z79.899 Other long term (current) drug therapy; E10.65 Type 1 diabetes mellitus with hyperglycemia; E78.2 Mixed hyperlipidemia; B34.8 Other viral infections of unspecified site; E55.9 Vitamin D deficiency, unspecified
CPT/HCPCS: 36415; 80061; 80069; 80076; 80197; 82306; 82570; 83036; 84156; 85025

== ENCOUNTER 2022-02-23 09:27 | Outpatient (CLI) | payer MEDICARE, SELFPAY | END 2022-02-23 09:28 | disposition home or self-care (01) | LOC: CHSLAB 09:30 | PROVIDERS: PCP Internal Medicine | DX: E55.9 Vitamin D deficiency, unspecified (principal) | CPT/HCPCS: 99199 ==

== ENCOUNTER 2022-03-23 07:25 | Outpatient (CLI) | payer MEDICARE, SELFPAY ==
[2022-03-23 08:12] LABS: Basophils Absolute Auto 0.01 K/mm3 (0.00-0.10); Basophils Percent Auto 0.2 % (0.0-1.0); Eosinophils Absolute Auto 0.02 K/mm3 (0.02-0.50); Eosinophils Percent Auto 0.3 % (1.0-6.0); Hematocrit 48.2 % (40.0-54.0); Hemoglobin 15.4 g/dL (14.0-18.0); Immature Granulocyte Absolute 0.03 K/mm3 (0.00-0.00); Immature Granulocyte Percent A 0.5 % (0.0-0.0); Lymphocytes Absolute Auto 1.22 K/mm3 (1.10-4.50); Lymphocytes Percent Auto 19.4 % (18.0-42.0); Mean Corpuscular Hemoglobin 28.5 pg (27.0-31.0); Mean Corpuscular Volume 89.3 fL (78.0-102.0); Mean Platelet Volume 9.1 fl (8.7-11.0); Monocytes Absolute Auto 0.59 K/mm3 (0.10-0.90); Monocytes Percent Auto 9.4 % (2.0-11.0); Neutrophils Absolute Auto 4.4 K/mm3 (1.7-7.2); Neutrophils Percent Auto 70.2 % (50.0-70.0); Platelet Count Result 215 K/mm3 (150-420); Red Cell Distribution Width 14.7 % (11.6-14.4); White Blood Count 6.3 K/mm3 (4.8-10.8)
[2022-03-23 08:28] LABS: Creatinine Urine 101.35 mg/dL (40-278); Ur Ttl Prot Creatinine Ratio 0.41 mg/mg (0-0.20)
[2022-03-23 08:46] LABS: Albumin Level 3.9 g/dL (3.4-5.0); Anion Gap 8 mmol/L (8-16); Blood Urea Nitrogen 32 mg/dL (7-18); Calcium 9.5 mg/dL (8.5-10.1); Carbon Dioxide 27 mmol/L (21-32); Chloride 107 mmol/L (98-108); Estimated Glomerular Filt Rate 44; Glucose 128 mg/dL (70-99); Osmolality Calculated 302 mOsm/kg (285-295); Phosphorus 3.7 mg/dL (2.6-4.7); Sodium 142 mmol/L (136-145)
[2022-03-25 19:34] LABS: BK Virus DNA, Qual PCR Not Detected (Not Detected); BK Virus Specimen Source Whole Blood
[2022-03-26 00:19] LABS: Tacrolimus Prograf 6.4 mcg/L
== END 2022-03-23 07:26 | disposition home or self-care (01) ==
LOC: CHSLAB 07:30
PROVIDERS: PCP Internal Medicine
DX: Z94.0 Kidney transplant status (principal); E10.65 Type 1 diabetes mellitus with hyperglycemia; E78.2 Mixed hyperlipidemia; N39.0 Urinary tract infection, site not specified; Z79.899 Other long term (current) drug therapy; B34.8 Other viral infections of unspecified site
CPT/HCPCS: 36415; 80069; 80197; 82570; 84156; 85025; 87798

== ENCOUNTER 2022-04-06 07:07 | Outpatient (CLI) | payer MEDICARE, SELFPAY ==
--- NOTE | ~2022-04-06 | US_ITS ---
US right upper quadrant INDICATION: Abdominal pain PROCEDURE: Realtime right upper abdominal ultrasound. COMPARISON: CT dated 04/29/2017 FINDINGS: The pancreas is normal without focal mass or pancreatic ductal dilation. Liver echotexture is normal without focal mass or intrahepatic biliary dilatation. There is normal directional flow i n the portal vein. There is mild gallbladder wall thickening measuring 6 mm. There is a 3 mm gallbladder polyp. No galls tones. Common bile duct measures 2.1 mm. No sonographic Good's sign. IMPRESSION: 1: Gallbladder wall thickening. This could indicate interstitial edema, chronic liver disease or branding machine tender darinel cholecystitis. 2: Gallbladder polyp measuring 3 mm. Reviewed, dictated and finalized at location B. LTS ENGINEER IMPRESSION: 1: Gallbladder wall thickening. This could indicate interstitial edema, chronic liver disease or chronic cholecystitis. 2: Gallbladder polyp measuring 3 mm.
== END 2022-04-06 07:08 | disposition home or self-care (01) ==
LOC: CHSIMG 07:08
PROVIDERS: PCP Internal Medicine; Visit Provider Internal Medicine
DX: R10.9 Unspecified abdominal pain (principal); K82.4 Cholesterolosis of gallbladder; R93.5 Abnormal findings on diagnostic imaging of other abdominal regions, including retroperitoneum
CPT/HCPCS: 76705

== ENCOUNTER 2022-04-20 07:18 | Outpatient (CLI) | payer MEDICARE, SELFPAY ==
[2022-04-20 07:45] LABS: Basophils Absolute Auto 0.01 K/mm3 (0.00-0.10); Basophils Percent Auto 0.1 % (0.0-1.0); Eosinophils Absolute Auto 0.03 K/mm3 (0.02-0.50); Eosinophils Percent Auto 0.4 % (1.0-6.0); Hematocrit 49.3 % (40.0-54.0); Hemoglobin 15.9 g/dL (14.0-18.0); Immature Granulocyte Absolute 0.02 K/mm3 (0.00-0.00); Immature Granulocyte Percent A 0.3 % (0.0-0.0); Lymphocytes Absolute Auto 1.11 K/mm3 (1.10-4.50); Lymphocytes Percent Auto 16.3 % (18.0-42.0); Mean Corpuscular HGB Conc 32.3 g/dL (32.0-36.0); Mean Corpuscular Hemoglobin 28.8 pg (27.0-31.0); Mean Corpuscular Volume 89.2 fL (78.0-102.0); Mean Platelet Volume 8.8 fl (8.7-11.0); Monocytes Absolute Auto 0.57 K/mm3 (0.10-0.90); Monocytes Percent Auto 8.4 % (2.0-11.0); Neutrophils Absolute Auto 5.1 K/mm3 (1.7-7.2); Neutrophils Percent Auto 74.5 % (50.0-70.0); Platelet Count Result 209 K/mm3 (150-420); Red Blood Count 5.53 M/mm3 (4.70-6.10); Red Cell Distribution Width 14.6 % (11.6-14.4); White Blood Count 6.8 K/mm3 (4.8-10.8)
[2022-04-20 07:50] LABS: Creatinine Urine 83.39 mg/dL (40-278); Total Protein Urine Random 35.8 mg/dL (0.0-11.9); Ur Ttl Prot Creatinine Ratio 0.43 mg/mg (0-0.20)
[2022-04-20 08:12] LABS: Albumin Level 3.7 g/dL (3.4-5.0); Anion Gap 8 mmol/L (8-16); Blood Urea Nitrogen 33 mg/dL (7-18); Calcium 9.4 mg/dL (8.5-10.1); Carbon Dioxide 28 mmol/L (21-32); Chloride 106 mmol/L (98-108); Estimated Glomerular Filt Rate 46; Glucose 150 mg/dL (70-99); Osmolality Calculated 304 mOsm/kg (285-295); Phosphorus 3.8 mg/dL (2.6-4.7); Sodium 142 mmol/L (136-145)
[2022-04-22 15:32] LABS: BK Virus DNA, QN PCR log Not Detected Log cps/mL; BK Virus Specimen Source Whole Blood
[2022-04-23 10:51] LABS: Tacrolimus Prograf 6.9 mcg/L
== END 2022-04-20 07:19 | disposition home or self-care (01) ==
PROVIDERS: PCP Internal Medicine
DX: Z94.0 Kidney transplant status (principal); B34.8 Other viral infections of unspecified site
CPT/HCPCS: 36415; 80069; 80197; 82570; 84156; 85025; 87799

== ENCOUNTER 2022-04-29 12:14 | Outpatient (CLI) | payer MEDICARE, SELFPAY ==
--- NOTE | ~2022-04-29 | US_ITS ---
EXAMINATION: US retroperitoneal duplex ltd DATE: 04/29/2022 13:05 INDICATION: Left renal transplant kidney presenting with abdominal pain TECHNIQUE: Multiple grayscale, color Doppler, and pulsed Doppler images of the (transplant kidney and renal arteries were obtained. COMPARISON: None. FINDINGS: Left transplant kidney measures 4.7 x 7.0 x 7.3 cm with normal contour and echogenicity. No hydroneph rosis. The left iliac artery peak systolic velocity is 135 cm/s. The left transplant renal artery pea k systolic velocity is are 123 cm/s at the origin, 402 cm/s in the proximal segment, 240 cm/s in the mid segment, and 99 cm/s in the distal segment. Arterial resistive indices of 0.76 at the upper pole, 0.81 at the lower pole and 0.80 in the interpolar region. Normal directional flow and venous wavefor ms in the left transplant renal vein. IMPRESSION: 1. Prominent increased peak systolic velocities at the proximal renal artery to the left transplant kidney consistent with a >50-60% stenosis. 2. Mildly increased transplant kidney renal arterial resistive indices of 0.76-0.81. Reviewed, dictated and finalized at location B. IMPRESSION: 1. Prominent increased peak systolic velocities at the proximal renal artery t o the left transplant kidney consistent with a >50-60% stenosis. 2. Mildly increased transplant kidney renal arterial resistive indices of 0.76- 0.81.
== END 2022-04-29 12:15 | disposition home or self-care (01) ==
LOC: CHSIMG 12:17
PROVIDERS: PCP Internal Medicine
DX: N17.9 Acute kidney failure, unspecified (principal); Z79.899 Other long term (current) drug therapy; Z94.0 Kidney transplant status
CPT/HCPCS: 93976

== ENCOUNTER 2022-05-21 07:04 | Outpatient (CLI) | payer MEDICARE, SELFPAY ==
[2022-05-21 07:27] LABS: Basophils Absolute Auto 0.01 K/mm3 (0.00-0.10); Basophils Percent Auto 0.1 % (0.0-1.0); Eosinophils Absolute Auto 0.03 K/mm3 (0.02-0.50); Eosinophils Percent Auto 0.4 % (1.0-6.0); Hematocrit 46.1 % (40.0-54.0); Hemoglobin 15.1 g/dL (14.0-18.0); Immature Granulocyte Absolute 0.02 K/mm3 (0.00-0.00); Immature Granulocyte Percent A 0.2 % (0.0-0.0); Lymphocytes Absolute Auto 1.31 K/mm3 (1.10-4.50); Lymphocytes Percent Auto 15.8 % (18.0-42.0); Mean Corpuscular HGB Conc 32.8 g/dL (32.0-36.0); Mean Corpuscular Hemoglobin 29.3 pg (27.0-31.0); Mean Corpuscular Volume 89.5 fL (78.0-102.0); Mean Platelet Volume 9.4 fl (8.7-11.0); Monocytes Absolute Auto 0.79 K/mm3 (0.10-0.90); Monocytes Percent Auto 9.5 % (2.0-11.0); Neutrophils Absolute Auto 6.1 K/mm3 (1.7-7.2); Platelet Count Result 218 K/mm3 (150-420); Red Blood Count 5.15 M/mm3 (4.70-6.10); Red Cell Distribution Width 14.7 % (11.6-14.4); White Blood Count 8.3 K/mm3 (4.8-10.8)
[2022-05-21 07:35] LABS: Creatinine Urine 70.29 mg/dL (40-278); Ur Ttl Prot Creatinine Ratio 0.48 mg/mg (0-0.20)
[2022-05-21 07:40] LABS: Hemoglobin A1C 6.1 % (<5.7)
[2022-05-21 08:03] LABS: Alanine Aminotransferase 27 U/L (16-63); Albumin Level 3.7 g/dL (3.4-5.0); Alkaline Phosphatase 100 U/L (46-116); Aspartate Amino Transferase 12 U/L (15-37); Bilirubin Direct 0.2 mg/dL (0-0.2); Cholesterol 101 mg/dL (0-200); HDL Direct 39 mg/dL (40-60); LDL Cholesterol Calculated 40 mg/dL (<130); Total Protein 6.3 g/dL (6.4-8.2); Triglycerides 108 mg/dL (0-150)
[2022-05-22 08:32] LABS: Anion Gap 10 mmol/L (8-16); Blood Urea Nitrogen 38 mg/dL (7-18); Calcium 9.4 mg/dL (8.5-10.1); Carbon Dioxide 26 mmol/L (21-32); Chloride 107 mmol/L (98-108); Estimated Glomerular Filt Rate 42; Glucose 135 mg/dL (70-99); Osmolality Calculated 307 mOsm/kg (285-295); Phosphorus 3.8 mg/dL (2.6-4.7); Potassium 4.1 mmol/L (3.5-5.1); Sodium 143 mmol/L (136-145)
[2022-05-25 07:00] LABS: Tacrolimus Prograf 5.8 mcg/L
== END 2022-05-21 07:05 | disposition home or self-care (01) ==
LOC: CHSLAB 07:08
PROVIDERS: PCP Internal Medicine
DX: Z94.0 Kidney transplant status (principal); E78.2 Mixed hyperlipidemia; N39.0 Urinary tract infection, site not specified; E10.65 Type 1 diabetes mellitus with hyperglycemia; Z79.899 Other long term (current) drug therapy
CPT/HCPCS: 36415; 80061; 80069; 80076; 80197; 82570; 83036; 84156; 85025

== ENCOUNTER 2022-06-10 11:54 | Outpatient (CLI) | payer MEDICARE, SELFPAY ==
--- NOTE | ~2022-06-10 | XR_ITS ---
EXAMINATION: XR chest 2V Exam Date/Time: 06/10/2022 12:20 CDT HISTORY: COUGH, CHF,LLE EDEMA,CONGSTION,XWEEKS Comparison: 04/03/2021. RESULT: Lines, tubes, and devices: Left upper arm vascular stent. Lungs and pleura: Hemidiaphragm flattening as can be seen with emphysematous change. Indistinct bila teral suprahilar regions, a stable finding. Mild diffuse reticular opacities. Cardiomediastinal silhouette: Stable. Other: No acute osseous or upper abdominal finding. IMPRESSION: Pulmonary opacities may represent mild interstitial edema and/or respiratory bronchiolitis, in the ap propriate clinical context. Reviewed, dictated and finalized at location K. IMPRESSION: Pulmonary opacities may represent mild interstitial edema and/or respiratory br onchiolitis, in the appropriate clinical context.
--- NOTE | ~2022-06-10 | US_ITS ---
EXAMINATION: US venous doppler [facility] DATE: 06/10/2022 14:40 INDICATION: Lower limb edema. TECHNIQUE: Grayscale ultrasound images without and with compression and Doppler ultrasound images of the bilateral lower extremity veins were obtained. COMPARISON: None. FINDINGS: The visualized portions of right common femoral vein, profunda (deep) femoral vein, femoral vein, pop liteal vein, peroneal veins, posterior tibial veins, and greater saphenous vein outflow are patent. The visualized portions of left common femoral vein, profunda femoral vein, femoral vein, popliteal v ein, peroneal veins, posterior tibial veins, and greater saphenous vein outflow are patent. IMPRESSION: 1. No deep venous thrombosis. Reviewed, dictated and finalized at location A.
[2022-06-10 12:12] LABS: Basophils Absolute Auto 0.01 K/mm3 (0.00-0.10); Basophils Percent Auto 0.1 % (0.0-1.0); Eosinophils Absolute Auto 0.02 K/mm3 (0.02-0.50); Eosinophils Percent Auto 0.2 % (1.0-6.0); Hematocrit 43.7 % (40.0-54.0); Hemoglobin 14.1 g/dL (14.0-18.0); Immature Granulocyte Absolute 0.03 K/mm3 (0.00-0.00); Immature Granulocyte Percent A 0.3 % (0.0-0.0); Lymphocytes Absolute Auto 1.24 K/mm3 (1.10-4.50); Lymphocytes Percent Auto 13.2 % (18.0-42.0); Mean Corpuscular HGB Conc 32.3 g/dL (32.0-36.0); Mean Corpuscular Hemoglobin 29.3 pg (27.0-31.0); Mean Corpuscular Volume 90.9 fL (78.0-102.0); Mean Platelet Volume 9.3 fl (8.7-11.0); Monocytes Absolute Auto 0.71 K/mm3 (0.10-0.90); Monocytes Percent Auto 7.6 % (2.0-11.0); Neutrophils Absolute Auto 7.4 K/mm3 (1.7-7.2); Neutrophils Percent Auto 78.6 % (50.0-70.0); Platelet Count Result 190 K/mm3 (150-420); Red Blood Count 4.81 M/mm3 (4.70-6.10); Red Cell Distribution Width 14.7 % (11.6-14.4); White Blood Count 9.4 K/mm3 (4.8-10.8)
[2022-06-10 13:03] LABS: Alanine Aminotransferase 19 U/L (16-63); Albumin Level 3.4 g/dL (3.4-5.0); Alkaline Phosphatase 99 U/L (46-116); Anion Gap 6 mmol/L (8-16); Aspartate Amino Transferase 13 U/L (15-37); Bilirubin,Total 1.1 mg/dL (0.00-1.00); Blood Urea Nitrogen 41 mg/dL (7-18); Calcium 9.4 mg/dL (8.5-10.1); Carbon Dioxide 27 mmol/L (21-32); Chloride 109 mmol/L (98-108); Estimated Glomerular Filt Rate 39; Glucose 252 mg/dL (70-99); Magnesium 1.7 mg/dL (1.8-2.4); NT Pro B Type Natriuretic Pept 2195 pg/mL (0-125); Osmolality Calculated 313 mOsm/kg (285-295); Potassium 4.9 mmol/L (3.5-5.1); Sodium 142 mmol/L (136-145); Total Protein 6.1 g/dL (6.4-8.2)
== END 2022-06-10 11:55 | disposition home or self-care (01) ==
PROVIDERS: PCP Internal Medicine; Visit Provider Nurse Practitioner Family
DX: R05.9 Cough, unspecified (principal); M79.89 Other specified soft tissue disorders; I50.9 Heart failure, unspecified; R91.8 Other nonspecific abnormal finding of lung field
CPT/HCPCS: 36415; 71046; 80053; 83735; 83880; 85025; 85380; 93970

== ENCOUNTER 2022-06-19 07:29 | Outpatient (CLI) | payer MEDICARE, SELFPAY ==
[2022-06-19 07:49] LABS: Basophils Absolute Auto 0.01 K/mm3 (0.00-0.10); Basophils Percent Auto 0.2 % (0.0-1.0); Eosinophils Absolute Auto 0.03 K/mm3 (0.02-0.50); Eosinophils Percent Auto 0.5 % (1.0-6.0); Hematocrit 47.2 % (40.0-54.0); Hemoglobin 15.1 g/dL (14.0-18.0); Immature Granulocyte Absolute 0.02 K/mm3 (0.00-0.00); Immature Granulocyte Percent A 0.3 % (0.0-0.0); Lymphocytes Absolute Auto 1.38 K/mm3 (1.10-4.50); Lymphocytes Percent Auto 21.8 % (18.0-42.0); Mean Corpuscular Hemoglobin 29.3 pg (27.0-31.0); Mean Corpuscular Volume 91.5 fL (78.0-102.0); Mean Platelet Volume 9.4 fl (8.7-11.0); Monocytes Absolute Auto 0.63 K/mm3 (0.10-0.90); Neutrophils Absolute Auto 4.3 K/mm3 (1.7-7.2); Neutrophils Percent Auto 67.2 % (50.0-70.0); Platelet Count Result 200 K/mm3 (150-420); Red Blood Count 5.16 M/mm3 (4.70-6.10); Red Cell Distribution Width 14.5 % (11.6-14.4); White Blood Count 6.3 K/mm3 (4.8-10.8)
[2022-06-19 08:25] LABS: Creatinine Urine 85.71 mg/dL (40-278); Total Protein Urine Random 40.6 mg/dL (0.0-11.9); Ur Ttl Prot Creatinine Ratio 0.47 mg/mg (0-0.20)
[2022-06-19 08:37] LABS: Albumin Level 3.8 g/dL (3.4-5.0); Anion Gap 13 mmol/L (8-16); Blood Urea Nitrogen 42 mg/dL (7-18); Calcium 9.2 mg/dL (8.5-10.1); Carbon Dioxide 23 mmol/L (21-32); Chloride 107 mmol/L (98-108); Estimated Glomerular Filt Rate 39; Glucose 156 mg/dL (70-99); Osmolality Calculated 309 mOsm/kg (285-295); Phosphorus 3.9 mg/dL (2.6-4.7); Potassium 3.9 mmol/L (3.5-5.1); Sodium 143 mmol/L (136-145)
[2022-06-24 19:09] LABS: BK Virus DNA, QN PCR log Not Detected Log cps/mL; BK Virus Specimen Source Whole Blood
[2022-06-26 10:59] LABS: Tacrolimus Prograf 9.8 mcg/L
== END 2022-06-19 07:30 | disposition home or self-care (01) ==
PROVIDERS: PCP Internal Medicine
DX: E10.65 Type 1 diabetes mellitus with hyperglycemia (principal); E78.2 Mixed hyperlipidemia; Z94.0 Kidney transplant status
CPT/HCPCS: 36415; 80069; 80197; 82570; 84156; 85025; 87799

== ENCOUNTER 2022-06-26 12:27 | Outpatient (CLI) | payer MEDICARE, SELFPAY ==
--- NOTE | 2022-06-26 12:33 | ECHO_ITS ---
Patient Info Name: Zachary Melton Age: 61 years : 1960 Gender: Male Ht: 67 in Wt: 174 lbs BSA: 1.95 m2 HR: 64 bpm BP: 124 / 64 mmHg Heart Rhythm: Sinus Rhythm Technical Quality: Good Exam Date: 06/26/2022 12:19 PM Exam Location: [facility] Patient Status: Outpatient Admit Date: 06/26/2022 Staff Ordering Physician: Vinayak, Fawn Chaves NP Pad Extractor Tender: Lola Oleary RDCS Attending Provider: Vinayak, Fawn Chaves NP Referring Physician: Vinayak SEWELL; Exam Type: CA echo doppler color flow Study Info Indications - MURMUR, CHF Complete two-dimensional, color flow and Doppler transthoracic echocardiogram is performed. Summary 1. Complete two-dimensional, color flow and Doppler transthoracic echocardiogram is performed. 2. Left ventricular chamber dimension is normal. 3. Ventricular septum is sigmoid shaped. No LVOT obstruction. 4. Left ventricular systolic function is hyperdynamic, estimated at >70%. 5. The left ventricular diastolic function is abnormal. 6. E/e' 19 is elevated. 7. Left atrial chamber dimension is moderately enlarged. 8. There is mild aortic valve sclerosis. 9. There is mild mitral valve regurgitation. 10. There is mild to moderate tricuspid valve regurgitation. 11. Moderate pulmonary hypertension, estimated pulmonary arterial systolic pressure is 51 mmHg. 12. Dilated inferior vena cava with >50% collapse upon inspiration consistent with elevated right atrial pressure, 10 mmHg. Left Ventricle E/e' 19 is elevated. Ventricular septum is sigmoid shaped. No LVOT obstruction. Left ventricular chamber dimension is normal. Left ventricular systolic function is hyperdynamic, estimated at >70%. The left ventricular diastolic function is abnormal. Right Ventricle Right ventricular systolic function is normal and with normal TAPSE 2.3 cm. Right ventricular chamber dimension is normal. Left Atria Left atrial chamber dimension is moderately enlarged. Right Atria Right atrial chamber dimension is normal. Aortic Valve The aortic valve is trileaflet. There is mild aortic valve sclerosis. There is no aortic valve stenosis. There is no aortic valve regurgitation. Pulmonic Valve There is no pulmonic regurgitation. Mitral Valve There is no mitral valve stenosis. There is mild mitral valve regurgitation. Tricuspid Valve There is mild to moderate tricuspid valve regurgitation. Moderate pulmonary hypertension, estimated pulmonary arterial systolic pressure is 51 mmHg. Pericardium/Pleural There is no pericardial effusion. Inferior Vena Cava Dilated inferior vena cava with >50% collapse upon inspiration consistent with elevated right atrial pressure, 10 mmHg. Aorta The aortic root size at the sinus of Valsalva is normal. Left Ventricular Outflow Tract Name Value Normal LVOT 2D LVOT Diameter 1.9 cm LVOT Doppler LVOT Peak Velocity 168 cm/s LVOT Peak Gradient 11 mmHg LVOT Mean Gradient 6 mmHg LVOT VTI 36 cm LVOT VTI/AV VTI Ratio 1.0 LVOT Stroke Volume 97 ml Pulmonic Valve
[2022-06-26 15:45] LABS: NT Pro B Type Natriuretic Pept 2024 pg/mL (0-125)
== END 2022-06-26 12:28 | disposition home or self-care (01) ==
PROVIDERS: PCP Internal Medicine; Visit Provider Nurse Practitioner Family
DX: I50.9 Heart failure, unspecified (principal); R01.1 Cardiac murmur, unspecified; R93.1 Abnormal findings on diagnostic imaging of heart and coronary circulation; I27.20 Pulmonary hypertension, unspecified; I08.3 Combined rheumatic disorders of mitral, aortic and tricuspid valves
CPT/HCPCS: 36415; 83880; 93306

== ENCOUNTER 2022-07-21 07:04 | Outpatient (CLI) | payer MEDICARE, SELFPAY ==
[2022-07-21 07:28] LABS: Basophils Absolute Auto 0.01 K/mm3 (0.00-0.10); Basophils Percent Auto 0.1 % (0.0-1.0); Eosinophils Absolute Auto 0.02 K/mm3 (0.02-0.50); Eosinophils Percent Auto 0.3 % (1.0-6.0); Hematocrit 43.8 % (40.0-54.0); Hemoglobin 14.2 g/dL (14.0-18.0); Immature Granulocyte Absolute 0.02 K/mm3 (0.00-0.00); Immature Granulocyte Percent A 0.3 % (0.0-0.0); Lymphocytes Absolute Auto 1.19 K/mm3 (1.10-4.50); Lymphocytes Percent Auto 16.3 % (18.0-42.0); Mean Corpuscular HGB Conc 32.4 g/dL (32.0-36.0); Mean Corpuscular Hemoglobin 29.2 pg (27.0-31.0); Mean Corpuscular Volume 89.9 fL (78.0-102.0); Mean Platelet Volume 9.6 fl (8.7-11.0); Monocytes Absolute Auto 0.82 K/mm3 (0.10-0.90); Monocytes Percent Auto 11.2 % (2.0-11.0); Neutrophils Absolute Auto 5.2 K/mm3 (1.7-7.2); Neutrophils Percent Auto 71.8 % (50.0-70.0); Platelet Count Result 193 K/mm3 (150-420); Red Blood Count 4.87 M/mm3 (4.70-6.10); Red Cell Distribution Width 14.6 % (11.6-14.4); White Blood Count 7.3 K/mm3 (4.8-10.8)
[2022-07-21 07:42] LABS: Creatinine Urine 73.86 mg/dL (40-278); Total Protein Urine Random 23.1 mg/dL (0.0-11.9); Ur Ttl Prot Creatinine Ratio 0.31 mg/mg (0-0.20)
[2022-07-21 08:07] LABS: Albumin Level 3.5 g/dL (3.4-5.0); Anion Gap 10 mmol/L (8-16); Blood Urea Nitrogen 53 mg/dL (7-18); Calcium 9.4 mg/dL (8.5-10.1); Carbon Dioxide 25 mmol/L (21-32); Chloride 106 mmol/L (98-108); Estimated Glomerular Filt Rate 38; Glucose 152 mg/dL (70-99); Osmolality Calculated 309 mOsm/kg (285-295); Phosphorus 4.1 mg/dL (2.6-4.7); Potassium 3.7 mmol/L (3.5-5.1); Sodium 141 mmol/L (136-145)
== END 2022-07-21 07:05 | disposition home or self-care (01) ==
PROVIDERS: PCP Internal Medicine
DX: E10.65 Type 1 diabetes mellitus with hyperglycemia (principal); Z94.0 Kidney transplant status; Z79.899 Other long term (current) drug therapy
CPT/HCPCS: 36415; 80069; 80197; 82570; 84156; 85025

== ENCOUNTER 2022-08-03 12:57 | Outpatient (CLI) | payer MEDICARE, SELFPAY ==
[2022-08-03 13:50] LABS: Anion Gap 12 mmol/L (8-16); Blood Urea Nitrogen 67 mg/dL (7-18); Calcium 9.3 mg/dL (8.5-10.1); Carbon Dioxide 24 mmol/L (21-32); Chloride 106 mmol/L (98-108); Estimated Glomerular Filt Rate 32; Glucose 132 mg/dL (70-99); Osmolality Calculated 315 mOsm/kg (285-295); Potassium 4.3 mmol/L (3.5-5.1); Sodium 142 mmol/L (136-145)
== END 2022-08-03 12:58 | disposition home or self-care (01) ==
LOC: CHSLAB 13:01
PROVIDERS: PCP Internal Medicine
DX: I10 Essential (primary) hypertension (principal)
CPT/HCPCS: 36415; 80048

== ENCOUNTER 2022-08-06 15:08 | Outpatient (CLI) | payer MEDICARE, SELFPAY ==
--- NOTE | ~2022-08-06 | XR_ITS ---
EXAMINATION: XR chest 2V 08/06/2022 15:31 INDICATION: CHF PROCEDURE: 2 view chest COMPARISON: Comparison to multiple prior studies sequentially, with oldest reviewed study dated 10/11. FINDINGS: The lungs are clear. The cardiomediastinal silhouette is within normal limits. There are no pleural effusions. There is no pneumothorax suspected. IMPRESSION: 1: NO ACUTE CARDIOPULMONARY DISEASE. Reviewed, dictated and finalized at location L.
[2022-08-06 15:25] LABS: Basophils Absolute Auto 0.01 K/mm3 (0.00-0.10); Basophils Percent Auto 0.1 % (0.0-1.0); Eosinophils Absolute Auto 0.01 K/mm3 (0.02-0.50); Eosinophils Percent Auto 0.1 % (1.0-6.0); Hematocrit 42.2 % (40.0-54.0); Hemoglobin 13.8 g/dL (14.0-18.0); Immature Granulocyte Absolute 0.04 K/mm3 (0.00-0.00); Immature Granulocyte Percent A 0.4 % (0.0-0.0); Lymphocytes Absolute Auto 1.07 K/mm3 (1.10-4.50); Lymphocytes Percent Auto 11.1 % (18.0-42.0); Mean Corpuscular HGB Conc 32.7 g/dL (32.0-36.0); Mean Corpuscular Hemoglobin 29.3 pg (27.0-31.0); Mean Corpuscular Volume 89.6 fL (78.0-102.0); Mean Platelet Volume 10.3 fl (8.7-11.0); Monocytes Absolute Auto 0.53 K/mm3 (0.10-0.90); Monocytes Percent Auto 5.5 % (2.0-11.0); Neutrophils Percent Auto 82.8 % (50.0-70.0); Platelet Count Result 169 K/mm3 (150-420); Red Blood Count 4.71 M/mm3 (4.70-6.10); Red Cell Distribution Width 14.4 % (11.6-14.4); White Blood Count 9.7 K/mm3 (4.8-10.8)
[2022-08-06 15:29] LABS: Appearance Urine Clear (Clear); Bilirubin Urine Negative (Negative); Blood Urine Negative (Negative); Color Urine Light Yellow (Yellow); Glucose Urine UA 3+ (Negative); Ketones Urine Negative (Negative); Leukocyte Esterase Ur Negative (Negative); Nitrate Urine Negative (Negative); Protein Urine Negative (Negative); Specific Grav Ur <= 1.005 (1.010-1.020); Urobilinogen Urine 0.2 mg/dL (0.2-1.0)
[2022-08-06 15:34] LABS: Add Urine Microscopic? YES; Bacteria Urine None seen /hpf; RBC Urine 0-2 /hpf (0-2); Squamous Epithelial Cell Urine Rare /hpf (Few); WBC Urine 0-3 /hpf (0-3)
[2022-08-06 16:01] LABS: Alanine Aminotransferase 21 U/L (16-63); Albumin Level 3.5 g/dL (3.4-5.0); Alkaline Phosphatase 128 U/L (46-116); Anion Gap 8 mmol/L (8-16); Aspartate Amino Transferase 13 U/L (15-37); Bilirubin,Total 0.7 mg/dL (0.00-1.00); Blood Urea Nitrogen 67 mg/dL (7-18); Calcium 9.1 mg/dL (8.5-10.1); Carbon Dioxide 24 mmol/L (21-32); Chloride 103 mmol/L (98-108); Estimated Glomerular Filt Rate 33; Glucose 262 mg/dL (70-99); NT Pro B Type Natriuretic Pept 2594 pg/mL (0-125); Osmolality Calculated 308 mOsm/kg (285-295); Potassium 4.9 mmol/L (3.5-5.1); Sodium 135 mmol/L (136-145); Total Protein 6.2 g/dL (6.4-8.2)
== END 2022-08-06 15:09 | disposition home or self-care (01) ==
LOC: CHSLAB 15:13
PROVIDERS: PCP Internal Medicine; Visit Provider Nurse Practitioner Family
DX: I50.9 Heart failure, unspecified (principal); E11.9 Type 2 diabetes mellitus without complications; R53.83 Other fatigue; J06.9 Acute upper respiratory infection, unspecified
CPT/HCPCS: 36415; 71046; 80053; 81001; 83735; 83880; 85025; 87086

== ENCOUNTER 2022-08-20 08:44 | Outpatient (CLI) | payer MEDICARE, SELFPAY ==
[2022-08-20 09:20] LABS: Basophils Absolute Auto 0.01 K/mm3 (0.00-0.10); Basophils Percent Auto 0.1 % (0.0-1.0); Eosinophils Absolute Auto 0.03 K/mm3 (0.02-0.50); Eosinophils Percent Auto 0.4 % (1.0-6.0); Hematocrit 44.4 % (40.0-54.0); Hemoglobin 14.3 g/dL (14.0-18.0); Immature Granulocyte Absolute 0.01 K/mm3 (0.00-0.00); Immature Granulocyte Percent A 0.1 % (0.0-0.0); Immature Platelet Fraction Pct 2.2 % (1.0-7.0); Lymphocytes Absolute Auto 1.48 K/mm3 (1.10-4.50); Lymphocytes Percent Auto 21.3 % (18.0-42.0); Mean Corpuscular HGB Conc 32.2 g/dL (32.0-36.0); Mean Corpuscular Hemoglobin 29.2 pg (27.0-31.0); Mean Corpuscular Volume 90.8 fL (78.0-102.0); Mean Platelet Volume 10.7 fl (8.7-11.0); Monocytes Absolute Auto 0.68 K/mm3 (0.10-0.90); Monocytes Percent Auto 9.8 % (2.0-11.0); Neutrophils Absolute Auto 4.7 K/mm3 (1.7-7.2); Neutrophils Percent Auto 68.3 % (50.0-70.0); Platelet Count Result 148 K/mm3 (150-420); Red Blood Count 4.89 M/mm3 (4.70-6.10); Red Cell Distribution Width 15.4 % (11.6-14.4); White Blood Count 6.9 K/mm3 (4.8-10.8)
[2022-08-20 09:48] LABS: Creatinine Urine 74.34 mg/dL (40-278); Hemoglobin A1C 7.3 % (<5.7); Total Protein Urine Random 33.6 mg/dL (0.0-11.9); Ur Ttl Prot Creatinine Ratio 0.45 mg/mg (0-0.20)
[2022-08-20 09:58] LABS: Alanine Aminotransferase 18 U/L (16-63); Albumin Level 3.4 g/dL (3.4-5.0); Alkaline Phosphatase 112 U/L (46-116); Anion Gap 9 mmol/L (8-16); Aspartate Amino Transferase 10 U/L (15-37); Bilirubin Direct 0.2 mg/dL (0-0.2); Bilirubin,Total 0.8 mg/dL (0.00-1.00); Blood Urea Nitrogen 58 mg/dL (7-18); Calcium 9.6 mg/dL (8.5-10.1); Carbon Dioxide 24 mmol/L (21-32); Chloride 110 mmol/L (98-108); Cholesterol 89 mg/dL (0-200); Estimated Glomerular Filt Rate 33; Glucose 131 mg/dL (70-99); HDL Direct 40 mg/dL (40-60); LDL Cholesterol Calculated 28 mg/dL (<130); NT Pro B Type Natriuretic Pept 2291 pg/mL (0-125); Osmolality Calculated 314 mOsm/kg (285-295); Phosphorus 3.9 mg/dL (2.6-4.7); Potassium 4.8 mmol/L (3.5-5.1); Sodium 143 mmol/L (136-145); Total Protein 6.5 g/dL (6.4-8.2); Triglycerides 104 mg/dL (0-150)
[2022-08-22 14:28] LABS: BK Virus DNA, QN PCR log Not Detected Log cps/mL; BK Virus Specimen Source Plasma
[2022-08-23 04:27] LABS: Tacrolimus Prograf 9.4 mcg/L
== END 2022-08-20 08:45 | disposition home or self-care (01) ==
LOC: CHSLAB 08:50
PROVIDERS: PCP Internal Medicine
DX: R79.89 Other specified abnormal findings of blood chemistry (principal); Z94.0 Kidney transplant status; E10.65 Type 1 diabetes mellitus with hyperglycemia; E78.2 Mixed hyperlipidemia; N39.0 Urinary tract infection, site not specified; Z79.899 Other long term (current) drug therapy; B34.8 Other viral infections of unspecified site
CPT/HCPCS: 36415; 80061; 80069; 80076; 80197; 82570; 83036; 83880; 84156; 85025; 85055; 87799

== ENCOUNTER 2022-08-28 10:15 | Outpatient (CLI) | payer MEDICARE, SELFPAY ==
[2022-08-28 10:33] LABS: Basophils Absolute Auto 0.01 K/mm3 (0.00-0.10); Basophils Percent Auto 0.1 % (0.0-1.0); Eosinophils Absolute Auto 0.03 K/mm3 (0.02-0.50); Eosinophils Percent Auto 0.4 % (1.0-6.0); Hematocrit 43.7 % (40.0-54.0); Immature Granulocyte Absolute 0.02 K/mm3 (0.00-0.00); Immature Granulocyte Percent A 0.3 % (0.0-0.0); Lymphocytes Absolute Auto 1.48 K/mm3 (1.10-4.50); Lymphocytes Percent Auto 20.8 % (18.0-42.0); Mean Corpuscular Volume 90.5 fL (78.0-102.0); Mean Platelet Volume 9.7 fl (8.7-11.0); Monocytes Absolute Auto 0.86 K/mm3 (0.10-0.90); Monocytes Percent Auto 12.1 % (2.0-11.0); Neutrophils Absolute Auto 4.7 K/mm3 (1.7-7.2); Neutrophils Percent Auto 66.3 % (50.0-70.0); Platelet Count Result 146 K/mm3 (150-420); Red Blood Count 4.83 M/mm3 (4.70-6.10); Red Cell Distribution Width 15.9 % (11.6-14.4); White Blood Count 7.1 K/mm3 (4.8-10.8)
[2022-08-28 10:59] LABS: Albumin Level 3.4 g/dL (3.4-5.0); Blood Urea Nitrogen 48 mg/dL (7-18); Calcium 9.6 mg/dL (8.5-10.1); Chloride 109 mmol/L (98-108); Estimated Glomerular Filt Rate 35; Glucose 165 mg/dL (70-99); Osmolality Calculated 308 mOsm/kg (285-295); Phosphorus 4.2 mg/dL (2.6-4.7); Sodium 141 mmol/L (136-145)
[2022-08-28 11:08] LABS: Anion Gap 10 mmol/L (8-16); Carbon Dioxide 22 mmol/L (21-32)
== END 2022-08-28 10:16 | disposition home or self-care (01) ==
LOC: CHSLAB 10:20
PROVIDERS: PCP Internal Medicine; Visit Provider Internal Medicine
DX: I27.20 Pulmonary hypertension, unspecified (principal); Z94.0 Kidney transplant status
CPT/HCPCS: 36415; 80069; 85025

== ENCOUNTER 2022-09-07 07:03 | Outpatient (CLI) | payer MEDICARE, SELFPAY ==
--- NOTE | ~2022-09-07 | US_ITS ---
EXAMINATION: US_ABDRLQ_US DATE: 09/07/2022 08:01 INDICATION: Abdominal swelling and lump at the right lower quadrant. TECHNIQUE: Multiple grayscale and Doppler ultrasound images of the region of concern at the right low er quadrant were obtained. COMPARISON: None FINDINGS: Moderate amount of ascites is seen in the right lower quadrant. In the more superficial anterior abdo leroy wall the right lower quadrant at the region of the palpable abnormality is a nonspecific 1.6 x 1.5 x 0.7 cm hypoechoic mass with small amount of internal masses or flow evident on color Doppler. IMPRESSION: 1. Nonspecific 1.6 x 1.5 x 0.7 cm soft tissue mass in the subcutaneous fat at the right lower quadran t anterior abdominal wall. On review of prior CT there is a dialysis catheter entry site in the right lower quadrant anterior abdominal wall which suggests this could potentially represent herniated tis kristel and would recommend initial evaluation with CT. Subsequent percutaneous biopsy may be required fo r definitive determination. 2. Moderate amount of ascites in the right lower quadrant. Reviewed, dictated and finalized at location A. IMPRESSION: 1. Nonspecific 1.6 x 1.5 x 0.7 cm soft tissue mass in the subcutaneous fat at t he right lower quadrant anterior abdominal wall. On review of prior CT there is a dialysis catheter entry site in the right lower quadrant anterior abdominal wall which suggests this could potentially represent herniated tissue and would recommend initial evaluation with CT. Subsequent percutaneous biopsy may be re quired for definitive determination. 2. Moderate amount of ascites in the right lower quadrant.
--- NOTE | ~2022-09-07 | US_ITS ---
EXAMINATION: US retroperitoneal duplex ltd DATE: 09/07/2022 08:02 INDICATION: Elevated creatinine. Bilateral renal transplants, failed on the right. TECHNIQUE: Multiple grayscale, color Doppler, and pulsed Doppler images of the kidneys and renal juan m magan were obtained. COMPARISON: None. FINDINGS: There is a moderate amount of ascites in the left lower quadrant. The transplanted left kidney measur es 12.5 x 7.6 x 7.1 cm. The left transplant renal artery peak systolic velocity is 120 cm/s in the pr oximal segment, 451 cm/s in the mid segment, and 116 cm/s in the distal segment. There remains a bris k systolic upstroke in the distal renal artery. There is an S-shaped course to the renal artery to th e transplant left kidney with the site of velocity elevation the mid renal artery occurring at the si te of a relatively sharp kink in the course of the artery. IMPRESSION: 1. Again seen is a prominent increased peak systolic velocity at the proximal to mid artery to the l eft transplant kidney consistent with a >50-60% stenosis which could be due to atherosclerotic diseas e or potentially due to a relatively sharp kink in the course of the artery which occurs at this loca tion. Reviewed, dictated and finalized at location A. IMPRESSION: 1. Again seen is a prominent increased peak systolic velocity at the proximal to mid artery to the left transplant kidney consistent with a >50-60% stenosis which could be due to atherosclerotic disease or potentially due to a relativel y sharp kink in the course of the artery which occurs at this location.
== END 2022-09-07 07:04 | disposition home or self-care (01) ==
LOC: CHSIMG 07:05
PROVIDERS: PCP Internal Medicine; Visit Provider Internal Medicine Nephrology
DX: I70.1 Atherosclerosis of renal artery (principal); Z94.0 Kidney transplant status; R19.00 Intra-abdominal and pelvic swelling, mass and lump, unspecified site; R18.8 Other ascites
CPT/HCPCS: 76705; 93976

== ENCOUNTER 2022-09-09 06:59 | Outpatient (CLI) | payer MEDICARE, SELFPAY | END 2022-09-09 07:00 | disposition home or self-care (01) | PROVIDERS: PCP Internal Medicine; Visit Provider Transplant Surgery | DX: N18.6 End stage renal disease (principal) | CPT/HCPCS: 36415 ==

== ENCOUNTER 2022-09-21 07:11 | Outpatient (CLI) | payer MEDICARE, SELFPAY ==
--- NOTE | ~2022-09-21 | CT_ITS ---
EXAMINATION: CT abdomen pelvis wo con DATE: 09/21/2022 08:16 INDICATION: Lower abdominal pain and ascites TECHNIQUE: Computed tomography (CT) of the abdomen and pelvis was performed without intravenous contr ast. Automated exposure control and iterative reconstruction technique were employed. The dose-length product was 416.83 mGy-cm. COMPARISON: 04/29/2017 FINDINGS: Small bilateral posterior layering pleural effusions. There is mild discoid and dependent compressive atelectasis in the bilateral lower lobes. Heart size is normal. Atherosclerotic coronary artery calc ifications. Small pericardial effusion. Large amount of ascites scattered throughout the abdomen and pelvis. There is also diffuse body wall, mesenteric and retroperitoneal edema. Liver, gallbladder, pa ncreas and bilateral adrenal glands are normal. Mild splenomegaly measuring 14.1 cm maximal length Se josefa bilateral renal atrophy. Left pelvic kidney with mild hydronephrosis and prominent edema in the renal sinus fat. There is an additional chronic likely failed right renal transplant kidney with samy re atrophy and parenchymal calcification. Bladder is normal. Prostatomegaly measuring 4.3 x 4.5 cm. N o bowel obstruction. No pathologically enlarged abdominal or pelvic lymphadenopathy. There are multip le new scattered small sclerotic bone lesions. There is a larger 3.0 x 1.5 cm mixed lytic and sclerot ic lesion at the left posterior iliac spine. IMPRESSION: 1. Anasarca with large amount of ascites, small bilateral pleural effusions, small pericardial effusi on and extensive body wall, mesenteric and retroperitoneal edema. 2. Mild hydronephrosis and prominent edema of the renal sinus fat of a left pelvic transplant kidney with severely atrophic bilateral [place] kidneys and chronic failed right pelvic transplant kidney. 3. Prostatomegaly. 4. Multiple new sclerotic bone lesions and larger mixed lytic and sclerotic bone lesion at the left p osterior iliac spine which concerning for metastatic disease including prostate cancer. Correlate wit h PSA level and consider bone scan for further evaluation. Dr. Cameron discussed these findings with Dr. Alvarenga at 9:05 AM. 5. Nonspecific mild splenomegaly. Reviewed, dictated and finalized at location B. IMPRESSION: 1. Anasarca with large amount of ascites, small bilateral pleural effusions, sm all pericardial effusion and extensive body wall, mesenteric and retroperitonea l edema. 2. Mild hydronephrosis and prominent edema of the renal sinus fat of a left pel john transplant kidney with severely atrophic bilateral [place] kidneys and chron ic failed right pelvic transplant kidney. 3. Prostatomegaly. 4. Multiple new sclerotic bone lesions and larger mixed lytic and sclerotic bon e lesion at the left posterior iliac spine which concerning for metastatic dise ase including prostate cancer. Correlate with PSA level and consider bone scan for further evaluation. Dr. Cameron discussed these findings with Dr. Colette resendez 9:05 AM. 5. Nonspecific mild splenomegaly.
[2022-09-21 08:26] LABS: Appearance Urine Clear (Clear); Bilirubin Urine Negative (Negative); Blood Urine Negative (Negative); Color Urine Yellow (Yellow); Glucose Urine UA 2+ (Negative); Ketones Urine Negative (Negative); Leukocyte Esterase Ur Negative (Negative); Nitrate Urine Negative (Negative); Protein Urine Negative (Negative); Specific Grav Ur <= 1.005 (1.010-1.020); Urobilinogen Urine 0.2 mg/dL (0.2-1.0); pH Urine 5.5 (5.0-8.0)
[2022-09-21 08:27] LABS: Basophils Absolute Auto 0.03 K/mm3 (0.00-0.10); Basophils Percent Auto 0.4 % (0.0-1.0); Eosinophils Absolute Auto 0.02 K/mm3 (0.02-0.50); Eosinophils Percent Auto 0.2 % (1.0-6.0); Hematocrit 47.8 % (40.0-54.0); Hemoglobin 14.2 g/dL (14.0-18.0); Immature Granulocyte Absolute 0.03 K/mm3 (0.00-0.00); Immature Granulocyte Percent A 0.4 % (0.0-0.0); Lymphocytes Percent Auto 18.2 % (18.0-42.0); Mean Corpuscular HGB Conc 29.7 g/dL (32.0-36.0); Mean Corpuscular Hemoglobin 29.4 pg (27.0-31.0); Mean Platelet Volume 11.1 fl (8.7-11.0); Monocytes Absolute Auto 0.87 K/mm3 (0.10-0.90); Monocytes Percent Auto 10.6 % (2.0-11.0); Neutrophils Absolute Auto 5.8 K/mm3 (1.7-7.2); Neutrophils Percent Auto 70.2 % (50.0-70.0); Platelet Count Result 121 K/mm3 (150-420); Red Blood Count 4.83 M/mm3 (4.70-6.10); Red Cell Distribution Width 15.6 % (11.6-14.4); White Blood Count 8.2 K/mm3 (4.8-10.8)
[2022-09-21 08:33] LABS: Add Urine Microscopic? YES; Bacteria Urine Trace /hpf; Creatinine Urine 91.77 mg/dL (40-278); Other Sediment Urine Spermatazoa /hpf; RBC Urine None seen /hpf (0-2); Total Protein Urine Random 35.3 mg/dL (0.0-11.9); Ur Ttl Prot Creatinine Ratio 0.38 mg/mg (0-0.20); WBC Urine None seen /hpf (0-3)
[2022-09-21 08:49] LABS: Albumin Level 3.5 g/dL (3.4-5.0); Anion Gap 11 mmol/L (8-16); Blood Urea Nitrogen 78 mg/dL (7-18); Calcium 9.8 mg/dL (8.5-10.1); Carbon Dioxide 23 mmol/L (21-32); Chloride 107 mmol/L (98-108); Estimated Glomerular Filt Rate 24; Glucose 122 mg/dL (70-99); Osmolality Calculated 316 mOsm/kg (285-295); Potassium 4.5 mmol/L (3.5-5.1); Sodium 141 mmol/L (136-145)
[2022-09-23 17:42] LABS: BK Virus DNA, QN PCR log Not Detected Log cps/mL; BK Virus Specimen Source Plasma
[2022-09-24 07:41] LABS: Tacrolimus Prograf 12.8 mcg/L
== END 2022-09-21 07:12 | disposition home or self-care (01) ==
LOC: CHSIMG 07:16
PROVIDERS: PCP Internal Medicine
DX: R18.8 Other ascites (principal); R10.9 Unspecified abdominal pain; M89.9 Disorder of bone, unspecified; R16.1 Splenomegaly, not elsewhere classified; I31.39 Other pericardial effusion (noninflammatory); N40.0 Benign prostatic hyperplasia without lower urinary tract symptoms; E78.2 Mixed hyperlipidemia; Z94.0 Kidney transplant status; J90 Pleural effusion, not elsewhere classified; K66.8 Other specified disorders of peritoneum; Z79.899 Other long term (current) drug therapy; M79.89 Other specified soft tissue disorders; N13.30 Unspecified hydronephrosis
CPT/HCPCS: 36415; 74176; 80069; 80197; 81001; 82570; 84156; 85025; 87799

== ENCOUNTER 2022-10-15 09:09 | Outpatient (RCR) | payer MEDICARE, SELFPAY ==
--- NOTE | 2022-10-15 10:54 | PTOPEVAL1 ---
Assessment and note entered by Linda Wylie, PT Evaluation Information Assessment Status Evaluation Diagnosis Chronic Illness, Functional Decline Subjective Information Zachary Melton reports he has been having a slow decline in his function over the last 4-5 months. 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 He went to hip primary care physician and an abdominal scan was performed that showed a lot of fluid. He was then admitted to [facility] for 11 days starting on 09/21/22. He had 18 lbs of fluid removed from his abdomen. He underwent several tests during that time and they could not figure out where the fluid was coming from. He had a right kidney transplant in 2010 and the left one was transplanted in 2019. 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 He just got a cane about a week ago due to feeling wobbly on his feet. He denies falls but has had near falls when his knees feel weak. He denies pain. He has two steps into his home without a handrail and he has difficulty going up and down stairs. He has to take them one step at a time and hold the column that supports the overhang. He notes he has lost weight and feels it is mostly muscle. Reported Pain Level Pain Score 0: Self Report Assessment PT Clinical Summary Zachary Melton presents with functional decline following a hospitalization in early September 2022. He has a history of a right kidney transplant in 2010 and a left kidney transplant in 2019. While in the hospital, he had several liters of fluid removed from his abdomen. He has difficulty with walking, balance, stairs, and performing daily activities due to fatigue. 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 He objectively demonstrates decreased endurance; decreased balance; bilateral shoulder, hip, and knee weakness; impaired gait; and decreased functional abilities. Standard balance tests indicate he is a high fall risk. He will benefit from skilled PT to address these limitations. Plan of Care Interventions Neuro Re-education,Therapeutic Activities, Therapeutic Exercise PT Services Indicated Yes Treatment Frequency and 3
--- NOTE | 2022-10-15 10:55 | OPREHPOC ---
Outpatient Therapy Plan of Care This is a Multidisciplinary Plan of Care that may contain components documented by all disciplines (PT, OT, and ST.) PT Problem 1 PT Problem #1 Knowledge Deficit PT Goal 1 Goal The patient will be independent in a home exercise program to continue after discharge from formal PT. Target Visit 24 PT Problem 2 PT Problem #2 Impaired Balance PT Goal 1 Goal The patient will improve the Tinetti Balance Scale to 19/28 indicating a lesser fall risk. Target Visit 24 PT Problem 3 PT Problem #3 Impaired Strength PT Goal 1 Goal The patient will demonstrate bilateral hip and knee flexion and extension strength of 4-/5 to increase support for ambulation and stair climbing . Target Visit 24 PT Problem 4 PT Problem #4 Impaired Endurance PT Goal 1 Goal The patient will be able to ambulate 600 feet during the 6 min walk test without rest breaks to improve community ambulation. Target Visit 24 PT Problem 5 PT Problem #5 Impaired Functional Mobil PT Goal 1 Goal The patient will be able to climb 3 steps with a SBQC reciprocally to get into and out of his house safer.
--- NOTE | 2022-11-10 13:16 | PTOPPROG ---
Assessment and note entered by Linda Wylie, PT Evaluation Information Assessment Status Progress Diagnosis Chronic Illness, Functional Decline Onset 09/21/22 Subjective Information Zachary reports he continues to have weakness in his legs and notes it feels like his knees are going to buckle. He has had several near falls when his knees buckle however, he was able to prevent falling with his cane. He thinks he may need to use a walker for a bit though until he gets stronger. He does not note much change in his strength as he still struggles with lifting his leg over the side of the tub to get in the shower. He also notes difficulty going up the two steps into his home and he gets tired walking around in his home. He is still unable to work and does not shower without his being home in case he falls. He has not been hospitalized lately but did have 1.5 lbs of fluid removed from his abdomen approximately 2 weeks ago during an outpatient visit at the hospital. He also underwent a nerve conduction test in his legs last week when he saw a neurologist. He states they are testing him for neuropathy and he will see the neurologist again on 12/02/22. He is also seeing a harnessmaker on 12/05/22 for an evaluation. Assessment PT Clinical Summary Zachary Melton has completed 10 skilled PT visits for functional decline following a hospitalization . He is reporting ongoing weakness in his legs leading to difficulty getting up from chairs, walking around his house, going up and down the two steps into/out of his home, and lifting his legs to get into the tub/shower combo at his home. 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 He has been referred to a neurologist and harnessmaker due to ongoing medical conditions. He objectively demonstrates an improved Tinetti Balance score, improved distance on the 6 minute walk test, and improved LE strength since initiating PT. He does show a decline in his TUG test today and despite other improvements, he continues to demonstrate a moderate fall risk with balance tests, decreased LE strength, decreased endurance, and decreased functional abilities. He will continue to benefit from skilled PT to further address these limitations. Plan of Care Interventions Gait Training,Neuro Re-educatio
--- NOTE | 2022-11-10 13:17 | OPREHPOC ---
Outpatient Therapy Plan of Care This is a Multidisciplinary Plan of Care that may contain components documented by all disciplines (PT, OT, and ST.) PT Problem 1 PT Problem #1 Knowledge Deficit PT Goal 1 Goal The patient will be independent in a home exercise program to continue after discharge from formal PT. -progressing, continue Target Visit 24 Progress Not Met PT Problem 2 PT Problem #2 Impaired Balance PT Goal 1 Goal The patient will improve the Tinetti Balance Scale to 19/28 indicating a lesser fall risk. -progressing, continue Target Visit 24 Progress Not Met PT Problem 3 PT Problem #3 Impaired Strength PT Goal 1 Goal The patient will demonstrate bilateral hip and knee flexion and extension strength of 4-/5 to increase support for ambulation and stair climbing . -progressing, continue Target Visit 24 Progress Not Met PT Problem 4 PT Problem #4 Impaired Endurance PT Goal 1 Goal The patient will be able to ambulate 600 feet during the 6 min walk test without rest breaks to improve community ambulation. -progressing, continue Target Visit 24 Progress Not Met PT Problem 5 PT Problem #5 Impaired Functional Mobil PT Goal 1 Goal The patient will be able to climb 3 steps with a SBQC reciprocally to get into and out of his house safer. -progressing, continue Target Visit 24 Progress Not Met
--- NOTE | 2023-03-02 13:45 | PCPTNOTE ---
03/12/23: Pt has not been seen in PT since 12/07/22. He will be discharged. -Linda Wylie, PT
== END 2022-12-07 23:59 | disposition home or self-care (01) ==
LOC: CHSPT 09:09
PROVIDERS: PCP Internal Medicine; Visit Provider Internal Medicine
DX: R53.81 Other malaise (principal); R53.1 Weakness
CPT/HCPCS: 97110; 97162; 97530; 97750

== ENCOUNTER 2022-10-20 07:38 | Outpatient (CLI) | payer MEDICARE, SELFPAY ==
[2022-10-20 08:00] LABS: Basophils Absolute Auto 0.02 K/mm3 (0.00-0.10); Basophils Percent Auto 0.2 % (0.0-1.0); Eosinophils Absolute Auto 0.05 K/mm3 (0.02-0.50); Eosinophils Percent Auto 0.6 % (1.0-6.0); Hematocrit 37.5 % (40.0-54.0); Hemoglobin 12.2 g/dL (14.0-18.0); Immature Granulocyte Absolute 0.02 K/mm3 (0.00-0.00); Immature Granulocyte Percent A 0.2 % (0.0-0.0); Lymphocytes Absolute Auto 1.25 K/mm3 (1.10-4.50); Lymphocytes Percent Auto 14.5 % (18.0-42.0); Mean Corpuscular HGB Conc 32.5 g/dL (32.0-36.0); Mean Corpuscular Volume 92.4 fL (78.0-102.0); Mean Platelet Volume 10.2 fl (8.7-11.0); Monocytes Absolute Auto 0.76 K/mm3 (0.10-0.90); Monocytes Percent Auto 8.8 % (2.0-11.0); Neutrophils Absolute Auto 6.5 K/mm3 (1.7-7.2); Neutrophils Percent Auto 75.7 % (50.0-70.0); Platelet Count Result 177 K/mm3 (150-420); Red Blood Count 4.06 M/mm3 (4.70-6.10); Red Cell Distribution Width 16.4 % (11.6-14.4); White Blood Count 8.6 K/mm3 (4.8-10.8)
[2022-10-20 08:06] LABS: Creatinine Urine 63.02 mg/dL (40-278); Total Protein Urine Random 40.2 mg/dL (0.0-11.9); Ur Ttl Prot Creatinine Ratio 0.64 mg/mg (0-0.20)
[2022-10-20 08:28] LABS: Albumin Level 3.1 g/dL (3.4-5.0); Anion Gap 7 mmol/L (8-16); Blood Urea Nitrogen 62 mg/dL (7-18); Calcium 9.1 mg/dL (8.5-10.1); Carbon Dioxide 27 mmol/L (21-32); Chloride 108 mmol/L (98-108); Estimated Glomerular Filt Rate 30; Glucose 154 mg/dL (70-99); Osmolality Calculated 314 mOsm/kg (285-295); Phosphorus 3.9 mg/dL (2.6-4.7); Potassium 4.3 mmol/L (3.5-5.1); Sodium 142 mmol/L (136-145)
[2022-10-22 04:25] LABS: BK Virus DNA, QN PCR log Not Detected Log cps/mL; BK Virus Specimen Source Plasma
[2022-10-22 18:06] LABS: Tacrolimus Prograf 1.2 mcg/L
== END 2022-10-20 07:39 | disposition home or self-care (01) ==
LOC: CHSLAB 07:42
PROVIDERS: PCP Internal Medicine
DX: E10.65 Type 1 diabetes mellitus with hyperglycemia (principal); E78.2 Mixed hyperlipidemia; N39.0 Urinary tract infection, site not specified; B34.8 Other viral infections of unspecified site; Z79.899 Other long term (current) drug therapy
CPT/HCPCS: 36415; 80069; 80197; 82570; 84156; 85025; 87799

== ENCOUNTER 2022-11-11 12:01 | Emergency (ER) | payer MEDICARE, SELFPAY ==
--- NOTE | ~2022-11-11 | CT_ITS ---
EXAMINATION: CT lumbar spine wo con DATE: 11/11/2022 13:02 INDICATION: Low back pain. Fall. TECHNIQUE: Computed tomography (CT) of the lumbar spine was performed without intravenous contrast. A utomated exposure control and iterative reconstruction technique were employed. The dose-length produ ct was 760.95 mGy-cm. COMPARISON: CT abdomen and pelvis 09/21/2022, 04/29/2017 FINDINGS: There is moderate atrophy of the kidneys. There is an 18 mm cyst in right kidney. There are widespread arterial calcifications. Ascites is noted. There are greater than 20 scattered sclerotic lesions of bone. There is a mixed lytic and sclerotic lesion in left ilium. Vertebral body heights an d intervertebral disc heights are normal. The following disc levels are specifically discussed: L1-L2: The disc does not extend beyond the endplate margin. There is mild bilateral facet joint osteo arthritis. There is no neural foraminal stenosis. There is no central canal stenosis. L2-L3: The disc is bulging. There is mild bilateral facet joint osteoarthritis. There is mild bilater al neural foraminal stenosis. There is mild central canal stenosis. L3-L4: The disc is bulging. There is mild bilateral facet joint osteoarthritis. There is mild bilater al neural foraminal stenosis. There is mild central canal stenosis. L4-L5: The disc is bulging. There is moderate bilateral facet joint osteoarthritis. There is mild dasia ateral neural foraminal stenosis. There is mild central canal stenosis. L5-S1: The disc is bulging. There is mild right and moderate left facet joint osteoarthritis. There i s no neural foraminal stenosis. There is mild central canal stenosis. IMPRESSION: 1. No fracture. 2. Mild lumbar spondylosis. 3. Scattered bone lesions, consistent with metastatic disease. 4. Ascites. Reviewed, dictated and finalized at location E.
--- NOTE | ~2022-11-11 | CT_ITS ---
EXAMINATION: CT brain wo con DATE: 11/11/2022 13:02 INDICATION: Head injury. Headache. Dizziness. TECHNIQUE: Computed tomography (CT) of the head was performed without intravenous contrast. The mA wa s adjusted according to patient size. Iterative reconstruction technique was employed. The dose-lengt h product was 605.33 mGy-cm. COMPARISON: Head CT 06/14/2017 FINDINGS: There is no intracranial hemorrhage, acute infarction, or abnormal intracranial mass lesion . There are scattered areas of low attenuation in the cerebral white matter, which is within normal l imits for the patient's age. The ventricles are normal in size. The orbits are normal. There is mild mucosal thickening in the paranasal sinuses. The mastoid air cells are normal. IMPRESSION: 1. Normal aging brain. Reviewed, dictated and finalized at location E. IMPRESSION: 1. Normal aging brain.
--- NOTE | ~2022-11-11 | XR_ITS ---
EXAMINATION: XR knee LT 3V DATE: 11/11/2022 13:05 INDICATION: Left knee pain. Fall. TECHNIQUE: 3 views of left knee were obtained. COMPARISON: None. FINDINGS: Bone alignment is normal. No fracture. There is mild tricompartmental osteoarthritis. No kn ee joint effusion. IMPRESSION: 1. Mild left knee osteoarthritis. Reviewed, dictated and finalized at location E.
--- NOTE | ~2022-11-11 | XR_ITS ---
EXAMINATION: XR pelvis 1-2V DATE: 11/11/2022 13:05 INDICATION: Pelvic pain. Fall. TECHNIQUE: An anteroposterior view of the pelvis was obtained. COMPARISON: Pelvis radiograph 05/04/2019, CT abdomen and pelvis 09/21/2022 FINDINGS: Bone alignment is normal. No fracture. There is a lytic and sclerotic lesion in left ilium. There are scattered sclerotic lesions of bone. There is moderate osteoarthritis of the hips. IMPRESSION: 1. Moderate osteoarthritis of the hips. 2. Scattered bone lesions, consistent with metastatic disease. Reviewed, dictated and finalized at location E.
--- NOTE | ~2022-11-11 | XR_ITS ---
EXAMINATION: XR knee RT 3V DATE: 11/11/2022 13:05 INDICATION: Right knee pain. Fall. TECHNIQUE: 3 views of right knee were obtained. COMPARISON: None. FINDINGS: Bone alignment is normal. No fracture. There is mild tricompartmental osteoarthritis. No kn ee joint effusion. IMPRESSION: 1. Mild right knee osteoarthritis. Reviewed, dictated and finalized at location E.
[2022-11-11 12:01] VITALS: BP 142/77; PULSE 66; RESP 14; TEMP 36.3; O2SAT 100
--- NOTE | 2022-11-11 12:06 | ED.FALL ---
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 He presents with -- bilateral knee pain. He is still able to bear weight and take a few steps with a walker. -- Low back pain without any radiation. -- questionable head injury no loss of consciousness. No new focal neuro deficit. He got transferred from the primary care physician's office to the ER. MD complaint: fall Onset (ago): hour(s) ( 6 hours ago.) Fall from: standing Fall witnessed: yes, by family Place fall occurred: home Loss of consciousness: none Prolonged down time: no Symptoms prior to fall: none Location of injury: back Location of injury - extremities: Bilateral: knee Associated symptoms (after fall): headache, unable to walk and other ( Back pain) Related Data Home Medications Medication Instructions Recorded Confirmed albuterol sulfate 90 mcg/actuation 1 puff inhalation Q6H PRN Dyspnea 11/25/21 11/11/22 aerosol inhaler allopurinol 300 mg tablet 300 mg PO DAILY 11/25/21 11/11/22 aspirin 81 mg tablet,delayed 81 mg PO DAILY 11/25/21 11/11/22 release atorvastatin 20 mg tablet 20 mg PO DAILY 11/25/21 11/11/22 empagliflozin 10 mg tablet 10 mg PO DAILY 11/25/21 11/11/22 (Jardiance) ergocalciferol (vitamin D2) 1,000 1,000 unit PO DAILY 11/25/21 11/11/22 unit capsule insulin aspart U-100 100 unit/mL 4 unit subcut PC 11/25/21 11/11/22 (3 mL) subcutaneous pen (Novolog FlexPen U-100 Insulin aspart) insulin glargine 100 unit/mL (3 12 unit subcut HS 11/25/21 11/11/22 mL) subcutaneous pen (Basaglar KwikPen U-100 Insulin) prednisone 5 mg tablet 5 mg PO DAILY 11/25/21 11/11/22 tacrolimus 1 mg tablet,extended 1 mg PO DAILY 11/25/21 11/11/22 release 24 hr (Envarsus XR) tamsulosin 0.4 mg capsule 0.4 mg PO BID 11/25/21 11/11/22 bumetanide 1 mg tablet 1 mg PO QAM 11/11/22 11/11/22 calcium polycarbophil 625 mg 625 mg PO BID 11/11/22 11/11/22 tablet (FiberCon) gabapentin 100 mg capsule 100 mg PO DAILY 11/11/22 11/11/22 metolazone 2.5 mg tablet 2.5 mg PO QAM 11/11/22 11/11/22 Allergies Allergy/AdvReac Type Severity Reaction Status Date / Time duloxetine Allergy Intermediate EXTREME Verified 11/11/22 12:21 NIGHTMARES, HALLUCINATIONS lisinopril Allergy Mild Cough Verified 11/11/22 12:21 prednisone Allergy Mild Rash Verified 11/11/22 12:21 codeine AdvReac Cough Verified 11/11/22 12:21 Review of Systems Review of Systems: All systems reviewed & are unremarkable except as noted in HPI and below Constitutional: Constitutional: Reports as per HPI, Reports no additional constitutional complaints and Reports weakness Eyes: Eyes: Reports as per HPI and Reports no additional eye complaints ENT: Reports system reviewed and no additional complaints, except as documented and Reports as per HPI Cardiovascular: Cardiovascular: Reports as per HPI and Reports no additional cardiovascular complaints Respiratory: Respiratory: Reports as per HPI and Reports no additional respiratory complaints Gastrointestinal: Gastrointestinal: Reports as per HPI, Reports no additional gastrointestinal complaints and Reports bloating Genitourinary: Genitourinary: Reports no additional male genitourinary complaints and Reports as per HPI Musculoskeletal: Musculoskeletal: Reports no additional musculoskeletal complaints and Reports as per HPI Integumentary/Breasts: Skin/Breast: Reports system reviewed and no additional complaints, except as docu and Reports as
[2022-11-11 12:30] VITALS: BP 106/70; PULSE 63; RESP 16; O2SAT 100
[2022-11-11] MEDS: ACETAMINOPHEN 500 MG TABLET 1000 MG PO (13:24)
[2022-11-11 13:30] VITALS: BP 130/69; PULSE 64; RESP 14; O2SAT 99
[2022-11-11 13:45] VITALS: BP 124/72; PULSE 62; RESP 18; O2SAT 98
[2022-11-11 13:57] VITALS: RESP 16; TEMP 36.6
== END 2022-11-11 14:00 | disposition home or self-care (01) ==
PROVIDERS: Emergency Provider Internal Medicine Critical Care Medicine; PCP Internal Medicine
DX: S09.90XA Unspecified injury of head, initial encounter (principal); M54.50 Low back pain, unspecified; E11.22 Type 2 diabetes mellitus with diabetic chronic kidney disease; I12.0 Hypertensive chronic kidney disease with stage 5 chronic kidney disease or end stage renal disease; N18.6 End stage renal disease; E78.5 Hyperlipidemia, unspecified; Z94.0 Kidney transplant status; Z79.899 Other long term (current) drug therapy; Z79.4 Long term (current) use of insulin; Z79.82 Long term (current) use of aspirin; W18.30XA Fall on same level, unspecified, initial encounter; Y92.009 Unspecified place in unspecified non-institutional (private) residence as the place of occurrence of the external cause
CPT/HCPCS: 70450; 72131; 72170; 73562; 99284

== ENCOUNTER 2022-11-18 08:11 | Outpatient (CLI) | payer MEDICARE, SELFPAY ==
[2022-11-18 08:40] LABS: Basophils Absolute Auto 0.03 K/mm3 (0.00-0.10); Basophils Percent Auto 0.3 % (0.0-1.0); Eosinophils Absolute Auto 0.06 K/mm3 (0.02-0.50); Eosinophils Percent Auto 0.7 % (1.0-6.0); Hematocrit 42.7 % (40.0-54.0); Hemoglobin 14.2 g/dL (14.0-18.0); Immature Granulocyte Absolute 0.02 K/mm3 (0.00-0.00); Immature Granulocyte Percent A 0.2 % (0.0-0.0); Lymphocytes Absolute Auto 1.51 K/mm3 (1.10-4.50); Lymphocytes Percent Auto 16.8 % (18.0-42.0); Mean Corpuscular HGB Conc 33.3 g/dL (32.0-36.0); Mean Corpuscular Hemoglobin 29.8 pg (27.0-31.0); Mean Corpuscular Volume 89.7 fL (78.0-102.0); Mean Platelet Volume 9.8 fl (8.7-11.0); Monocytes Absolute Auto 0.79 K/mm3 (0.10-0.90); Monocytes Percent Auto 8.8 % (2.0-11.0); Neutrophils Absolute Auto 6.6 K/mm3 (1.7-7.2); Neutrophils Percent Auto 73.2 % (50.0-70.0); Platelet Count Result 188 K/mm3 (150-420); Red Blood Count 4.76 M/mm3 (4.70-6.10); Red Cell Distribution Width 15.1 % (11.6-14.4)
[2022-11-18 09:04] LABS: Creatinine Urine 62.89 mg/dL (40-278); Total Protein Urine Random 36.9 mg/dL (0.0-11.9); Ur Ttl Prot Creatinine Ratio 0.59 mg/mg (0-0.20)
[2022-11-18 09:29] LABS: Hemoglobin A1C 7.2 % (<5.7)
[2022-11-18 09:31] LABS: Alanine Aminotransferase 13 U/L (16-63); Albumin Level 3.4 g/dL (3.4-5.0); Alkaline Phosphatase 117 U/L (46-116); Anion Gap 9 mmol/L (8-16); Aspartate Amino Transferase < 10 U/L (15-37); Bilirubin Direct 0.2 mg/dL (0-0.2); Bilirubin,Total 0.9 mg/dL (0.00-1.00); Blood Urea Nitrogen 67 mg/dL (7-18); Calcium 9.8 mg/dL (8.5-10.1); Carbon Dioxide 28 mmol/L (21-32); Chloride 102 mmol/L (98-108); Cholesterol 99 mg/dL (0-200); Estimated Glomerular Filt Rate 30; Glucose 209 mg/dL (70-99); HDL Direct 36 mg/dL (40-60); LDL Cholesterol Calculated 29 mg/dL (<130); Osmolality Calculated 313 mOsm/kg (285-295); Phosphorus 3.6 mg/dL (2.6-4.7); Sodium 139 mmol/L (136-145); Total Protein 6.6 g/dL (6.4-8.2); Triglycerides 169 mg/dL (0-150)
[2022-11-20 15:14] LABS: BK Virus DNA, QN PCR log Not Detected Log cps/mL; BK Virus Specimen Source Plasma
[2022-11-20 16:32] LABS: Tacrolimus Prograf 4.8 mcg/L
== END 2022-11-18 08:12 | disposition home or self-care (01) ==
LOC: CHSLAB 08:19
PROVIDERS: PCP Internal Medicine
DX: E10.65 Type 1 diabetes mellitus with hyperglycemia (principal); Z94.0 Kidney transplant status; Z79.899 Other long term (current) drug therapy; B34.8 Other viral infections of unspecified site
CPT/HCPCS: 36415; 80061; 80069; 80076; 80197; 82570; 83036; 84156; 85025; 87799

== ENCOUNTER 2022-12-23 08:49 | Outpatient (CLI) | payer MEDICARE, SELFPAY ==
[2022-12-23 09:10] LABS: Basophils Absolute Auto 0.03 K/mm3 (0.00-0.10); Basophils Percent Auto 0.3 % (0.0-1.0); Eosinophils Absolute Auto 0.07 K/mm3 (0.02-0.50); Eosinophils Percent Auto 0.8 % (1.0-6.0); Hematocrit 47.7 % (40.0-54.0); Hemoglobin 15.8 g/dL (14.0-18.0); Immature Granulocyte Absolute 0.02 K/mm3 (0.00-0.00); Immature Granulocyte Percent A 0.2 % (0.0-0.0); Lymphocytes Percent Auto 19.9 % (18.0-42.0); Mean Corpuscular HGB Conc 33.1 g/dL (32.0-36.0); Mean Corpuscular Hemoglobin 29.8 pg (27.0-31.0); Mean Corpuscular Volume 89.8 fL (78.0-102.0); Mean Platelet Volume 9.5 fl (8.7-11.0); Monocytes Absolute Auto 0.66 K/mm3 (0.10-0.90); Monocytes Percent Auto 7.3 % (2.0-11.0); Neutrophils Absolute Auto 6.5 K/mm3 (1.7-7.2); Neutrophils Percent Auto 71.5 % (50.0-70.0); Platelet Count Result 197 K/mm3 (150-420); Red Blood Count 5.31 M/mm3 (4.70-6.10)
[2022-12-23 09:14] LABS: Total Protein Urine Random 60.7 mg/dL (0.0-11.9); Ur Ttl Prot Creatinine Ratio 1.04 mg/mg (0-0.20)
[2022-12-23 09:38] LABS: Albumin Level 3.4 g/dL (3.4-5.0); Anion Gap 10 mmol/L (8-16); Blood Urea Nitrogen 42 mg/dL (7-18); Calcium 9.8 mg/dL (8.5-10.1); Carbon Dioxide 25 mmol/L (21-32); Chloride 107 mmol/L (98-108); Estimated Glomerular Filt Rate 42; Glucose 180 mg/dL (70-99); Osmolality Calculated 309 mOsm/kg (285-295); Phosphorus 3.6 mg/dL (2.6-4.7); Potassium 4.4 mmol/L (3.5-5.1); Sodium 142 mmol/L (136-145)
[2022-12-26 04:11] LABS: Tacrolimus Prograf 6.2 mcg/L
== END 2022-12-23 08:50 | disposition home or self-care (01) ==
LOC: CHSLAB 08:53
PROVIDERS: PCP Internal Medicine; Visit Provider Internal Medicine
DX: Z94.0 Kidney transplant status (principal)
CPT/HCPCS: 36415; 80069; 80197; 82570; 84156; 85025

== ENCOUNTER 2023-01-23 09:15 | Outpatient (CLI) | payer MEDICARE, SELFPAY ==
[2023-01-23 09:40] LABS: Basophils Absolute Auto 0.02 K/mm3 (0.00-0.10); Basophils Percent Auto 0.2 % (0.0-1.0); Eosinophils Absolute Auto 0.08 K/mm3 (0.02-0.50); Eosinophils Percent Auto 0.9 % (1.0-6.0); Hematocrit 48.4 % (40.0-54.0); Hemoglobin 15.8 g/dL (14.0-18.0); Immature Granulocyte Absolute 0.02 K/mm3 (0.00-0.00); Immature Granulocyte Percent A 0.2 % (0.0-0.0); Lymphocytes Absolute Auto 1.79 K/mm3 (1.10-4.50); Lymphocytes Percent Auto 19.8 % (18.0-42.0); Mean Corpuscular HGB Conc 32.6 g/dL (32.0-36.0); Mean Corpuscular Hemoglobin 28.9 pg (27.0-31.0); Mean Corpuscular Volume 88.6 fL (78.0-102.0); Mean Platelet Volume 9.7 fl (8.7-11.0); Monocytes Absolute Auto 0.64 K/mm3 (0.10-0.90); Monocytes Percent Auto 7.1 % (2.0-11.0); Neutrophils Absolute Auto 6.5 K/mm3 (1.7-7.2); Neutrophils Percent Auto 71.8 % (50.0-70.0); Platelet Count Result 165 K/mm3 (150-420); Red Blood Count 5.46 M/mm3 (4.70-6.10); Red Cell Distribution Width 17.3 % (11.6-14.4)
[2023-01-23 09:45] LABS: Ur Ttl Prot Creatinine Ratio 0.91 mg/mg (0-0.20)
[2023-01-23 10:09] LABS: Albumin Level 3.5 g/dL (3.4-5.0); Anion Gap 6 mmol/L (8-16); Blood Urea Nitrogen 64 mg/dL (7-18); Calcium 9.6 mg/dL (8.5-10.1); Carbon Dioxide 29 mmol/L (21-32); Chloride 105 mmol/L (98-108); Estimated Glomerular Filt Rate 40; Glucose 170 mg/dL (70-99); Osmolality Calculated 312 mOsm/kg (285-295); Phosphorus 3.9 mg/dL (2.6-4.7); Potassium 3.9 mmol/L (3.5-5.1); Sodium 140 mmol/L (136-145)
[2023-01-25 16:06] LABS: BK Virus DNA, QN PCR log Not Detected Log cps/mL; BK Virus Specimen Source Whole Blood
[2023-01-26 23:11] LABS: Tacrolimus Prograf 7.1 mcg/L
== END 2023-01-23 09:16 | disposition home or self-care (01) ==
LOC: CHSLAB 09:20
PROVIDERS: PCP Internal Medicine
DX: E10.65 Type 1 diabetes mellitus with hyperglycemia (principal); Z94.0 Kidney transplant status; Z79.899 Other long term (current) drug therapy
CPT/HCPCS: 36415; 80069; 80197; 82570; 84156; 85025; 87799

== ENCOUNTER 2023-02-12 13:56 | Outpatient (CLI) | payer MEDICARE, SELFPAY ==
--- NOTE | ~2023-02-12 | CT_ITS ---
EXAMINATION: CT sinus wo con DATE: 02/12/2023 14:25 INDICATION: Chronic sinusitis. Headache. TECHNIQUE: Computed tomography (CT) of the paranasal sinuses was performed without intravenous contra st. The dose-length product was 224.31 mGy-cm. Automated exposure control and iterative reconstructio n technique were employed. COMPARISON: CT dated 11/11/2022 FINDINGS: There is mild mucosal thickening of the maxillary sinuses. No significant nasal septal antonio ation. Ostiomeatal units are patent. No significant mucoperiosteal reaction. Mastoids are pneumatized . IMPRESSION: 1. Mild maxillary sinus disease. Reviewed, dictated and finalized at location A. ARCH SOFTWARE ENGINEER
== END 2023-02-12 13:57 | disposition home or self-care (01) ==
LOC: CHSIMG 13:58
PROVIDERS: PCP Internal Medicine; Visit Provider Otolaryngology
DX: J32.0 Chronic maxillary sinusitis (principal)
CPT/HCPCS: 70486

== ENCOUNTER 2023-02-12 14:28 | Emergency (ER) | payer MEDICARE, SELFPAY ==
[2023-02-12] VITALS (27 sets, daily range): BP systolic 105–130; BP diastolic 38–65; PULSE 66–73; RESP 16–33; TEMP 37.3; O2SAT 94–99
--- NOTE | ~2023-02-12 | XR_ITS ---
EXAMINATION: XR chest 1V portable DATE: 02/12/2023 15:19 INDICATION: Chest tightness and shortness of breath TECHNIQUE: frontal view of the chest was obtained. COMPARISON: Chest radiograph dated 08/06/2022 FINDINGS: Mild perihilar interstitial opacities with bronchial wall thickening. More patchy airspace opacities and bilateral infrahilar regions. Small left pleural effusion. No pneumothorax. The cardiomediastinal silhouette is normal. IMPRESSION: 1. Perihilar bronchial wall thickening with patchy bilaterally infrahilar opacities suspicious for pn eumonia. Differential includes pulmonary edema, atelectasis or some combination thereof. 2. Small left pleural effusion. Reviewed, dictated and finalized at location A. MOTIVE SERVICE PORTER IMPRESSION: 1. Perihilar bronchial wall thickening with patchy bilaterally infrahilar opaci ties suspicious for pneumonia. Differential includes pulmonary edema, atelectas is or some combination thereof. 2. Small left pleural effusion.
--- NOTE | 2023-02-12 14:35 | ECG_ITS ---
Measurements Intervals [place] Rate: 72 P: 44 AL: 155 QRS: 74 QRSD: 82 T: 225 QT: 375 QTc: 411 Interpretive Statements SINUS RHYTHM POSSIBLE LEFT ATRIAL ENLARGEMENT [-0.1mV P-WAVE IN V1/V2] ST DEVIATION AND MODERATE T-WAVE ABNORMALITY, CONSIDER ANTEROLATERAL ISCHEMIA [-0.1+ mV T-WAVE IN V3-V6] ST DEVIATION AND MODERATE T-WAVE ABNORMALITY, CONSIDER INFERIOR ISCHEMIA [-0.1+ mV T- WAVE IN II/aVF] COMPARED TO ECG 12/20/2018 11:21:58 NO SIGNIFICANT CHANGES Electronically Signed On 02-12-2023 16:26:41 [employer]ONG AND DANCE PERFORMER by Sabiha Carrillo M.D.
--- NOTE | 2023-02-12 14:36 | ED.GENADULT ---
HPI - General Adult General Chief complaint: Shortness of Breath/Dyspnea Stated complaint: SOB Time Seen by Provider: 02/12/23 14:35 History of Present Illness HPI narrative: Zachary is a 62M with a PMH of HTN, ESRD s/p transplant x 2, peripheral neuropathy6, gout, HLD, DMII, HEATHER, and multiple myeloma that presented to the ED with chest tightness for a couple days. He feels like his chest is tight and it is worse if the lays down flat or takes a deep breath. When he takes a deep breath he starts coughing as well. There is no N/V, diarrhea, fevers, or new dyspnea. This is his 3rd time feeling like this. It always happens after he gets his chemo and lasts for a few days. He was told this could be an adverse effect. It is not particularly bothersome but he was nervous and wanted to make sure it was not somthing else. Related Data Home Medications Medication Instructions Recorded Confirmed allopurinol 300 mg tablet 300 mg PO DAILY 11/25/21 02/12/23 aspirin 81 mg tablet,delayed 81 mg PO DAILY 11/25/21 02/12/23 release atorvastatin 20 mg tablet 20 mg PO DAILY 11/25/21 02/12/23 ergocalciferol (vitamin D2) 1,000 1,000 unit PO DAILY 11/25/21 02/12/23 unit capsule insulin glargine 100 unit/mL (3 12 unit subcut HS 11/25/21 02/12/23 mL) subcutaneous pen (Basaglar KwikPen U-100 Insulin) prednisone 5 mg tablet 5 mg PO DAILY 11/25/21 02/12/23 tacrolimus 1 mg tablet,extended 1 mg PO DAILY 11/25/21 02/12/23 release 24 hr (Envarsus XR) tamsulosin 0.4 mg capsule 0.4 mg PO BID 11/25/21 02/12/23 calcium polycarbophil 625 mg 625 mg PO BID 11/11/22 02/12/23 tablet (FiberCon) gabapentin 100 mg capsule 100 mg PO DAILY 11/11/22 02/12/23 acyclovir 400 mg tablet 400 mg PO BID 02/12/23 02/12/23 lenalidomide 10 mg capsule 10 mg PO DAILY 02/12/23 02/12/23 (Revlimid) pregabalin 25 mg capsule 25 mg PO HS 02/12/23 02/12/23 Allergies Allergy/AdvReac Type Severity Reaction Status Date / Time duloxetine Allergy Intermediate EXTREME Verified 02/12/23 14:34 NIGHTMARES, HALLUCINATIONS lisinopril Allergy Mild Cough Verified 02/12/23 14:34 prednisone Allergy Mild Rash Verified 02/12/23 14:34 codeine AdvReac Cough Verified 02/12/23 14:34 Review of Systems Review of Systems: All systems reviewed & are unremarkable except as noted in HPI and below PMFSH Past Medical History Medical History Adult general medical examination Colon cancer screening Diabetes HTN (hypertension) HEATHER (obstructive sleep apnea) Surgical History Surgical History Renal transplant, status post X 2 Social History Social History Smoking status: Never smoker Alcohol intake: former Substance use: former Substance use type: crack/cocaine Other substance usage details: former addict Living arrangements: with family Spiritual care concerns: No Exam Const: General: cooperative, healthy appearing, comfortable, no acute distress, well developed, alert, awake and Physically active Orientation/consciousness: oriented to person, oriented to place and oriented to time HENMT: Head: normal to inspection, normocephalic and atraumatic Ears: hearing grossly normal bilaterally and external ears normal Face/Nose/Sinus: Normal external nose present Eyes: General: appearance normal, both eyes and all related structures Periorbital: periorbital findings normal Sclera: sclerae normal Pupils: Equal, round and reactive pupils present Neck: Neck: normal visual inspection Chest: Chest palpation & inspection: normal inspection of the chest Resp: Effort & Inspection: normal respiratory effort, able to speak in complete sentences and no respiratory distress Auscultation: clear to auscultation bilaterally Cardio: Jugular venous distension: no JVD Rate: regular rate Rhythm: regular rhythm GI
--- NOTE | 2023-02-12 15:00 | PC.NURSE ---
SPOKE WITH NICHOLAS AT DR PORTER'S OFFICE TO REQUEST RECENT EKG FOR COMPARISON, HOWEVER WAS NOTIFIED THAT DR PORTER HAS READ PT'S ECHOS BEFORE, BUT THAT PT IS NOT A PT OF DR PORTER, HE HAS NEVER BEEN FOLLOWED UP IN OFFICE. THE LAST ONE WAS DATED IN 2019, ERP WAS ABLE TO ACCESS THIS.
[2023-02-12 15:08] LABS: Basophils Absolute Auto 0.02 K/mm3 (0.00-0.10); Basophils Percent Auto 0.2 % (0.0-1.0); Eosinophils Absolute Auto 0.09 K/mm3 (0.02-0.50); Eosinophils Percent Auto 0.8 % (1.0-6.0); Hematocrit 39.2 % (40.0-54.0); Hemoglobin 12.5 g/dL (14.0-18.0); Immature Granulocyte Absolute 0.08 K/mm3 (0.00-0.00); Immature Granulocyte Percent A 0.7 % (0.0-0.0); Lymphocytes Absolute Auto 0.89 K/mm3 (1.10-4.50); Lymphocytes Percent Auto 7.5 % (18.0-42.0); Mean Corpuscular HGB Conc 31.9 g/dL (32.0-36.0); Mean Corpuscular Hemoglobin 28.7 pg (27.0-31.0); Mean Corpuscular Volume 89.9 fL (78.0-102.0); Mean Platelet Volume 11.9 fl (8.7-11.0); Monocytes Absolute Auto 1.21 K/mm3 (0.10-0.90); Monocytes Percent Auto 10.2 % (2.0-11.0); Neutrophils Absolute Auto 9.6 K/mm3 (1.7-7.2); Neutrophils Percent Auto 80.6 % (50.0-70.0); Platelet Count Result 130 K/mm3 (150-420); Red Blood Count 4.36 M/mm3 (4.70-6.10); Red Cell Distribution Width 15.7 % (11.6-14.4); White Blood Count 11.9 K/mm3 (4.8-10.8)
[2023-02-12 15:39] LABS: NT Pro B Type Natriuretic Pept 15366 pg/mL (0-125)
[2023-02-12 15:42] LABS: Troponin I 141.2 ng/L (0.00-60.4)
--- NOTE | 2023-02-12 15:42 | PC.NURSE ---
Lab reports elevated troponin, 141.2, erp made aware.
[2023-02-12 15:53] LABS: Alanine Aminotransferase 80 U/L (16-63); Albumin Level 3.2 g/dL (3.4-5.0); Alkaline Phosphatase 114 U/L (46-116); Anion Gap 8 mmol/L (8-16); Aspartate Amino Transferase 35 U/L (15-37); Bilirubin,Total 2.5 mg/dL (0.00-1.00); Blood Urea Nitrogen 66 mg/dL (7-18); Calcium 9.1 mg/dL (8.5-10.1); Carbon Dioxide 26 mmol/L (21-32); Chloride 105 mmol/L (98-108); Estimated CRCL calculation 31 ml/min; Estimated Glomerular Filt Rate 38; Glucose 190 mg/dL (70-99); Osmolality Calculated 312 mOsm/kg (285-295); Potassium 3.9 mmol/L (3.5-5.1); Sodium 139 mmol/L (136-145); Total Protein 6.1 g/dL (6.4-8.2)
--- NOTE | 2023-02-12 15:55 | PC.NURSE ---
PT IS SPEAKING ON CELL AT THIS TIME, NAD NOTED. HAS LEFT, TO RETURN. ERP HAS UPDATED PT AND , PT IS REQUESTING [facility] FOR TRANSFER. PT DENIES ANY NEEDS OR COMPLAINTS AT THIS TIME. WILL CONTINUE TO MONITOR.
[2023-02-12] MEDS: ASPIRIN 81 MG CHEWABLE TABLET 324 MG PO (15:58)
[2023-02-12] MEDS: ENOXAPARIN 100 MG/ML SYRINGE 75 MG SUB-Q (16:00)
[2023-02-12] MEDS: cefTRIAXone 2 GM/NS 100 ML 2 GM/100 ML BAG IVPB (16:15)
--- NOTE | 2023-02-12 16:24 | PC.NURSE ---
SPOKE WITH DELICIA TANNER AT [place], REPORTS PT IS A HIGH PRIORITY, HOWEVER NO BEDS AVAILABLE AT THIS TIME.
--- NOTE | 2023-02-12 16:44 | PC.NURSE ---
MIKI FROM [facility] HAS RETURNED CALL WITH ROOM ASSIGNMENT AT THIS TIME. [id number] AT [facility].
[2023-02-12] MEDS: AZITHROMYCIN 500 MG/NS 250 ML 500 MG/250 ML BAG 250 MG IVPB (17:02)
--- NOTE | 2023-02-12 17:05 | PC.NURSE ---
PT IS UPDATED ON STATUS, ERP BACK AT BEDSIDE DUE TO PT HAVING QUESTIONS.
== END 2023-02-12 17:43 | disposition short-term general hospital (02) ==
LOC: CHSED 15:08
PROVIDERS: Emergency Provider Family Medicine; PCP Internal Medicine
DX: I21.4 Non-ST elevation (NSTEMI) myocardial infarction (principal); I12.0 Hypertensive chronic kidney disease with stage 5 chronic kidney disease or end stage renal disease; E11.22 Type 2 diabetes mellitus with diabetic chronic kidney disease; N18.6 End stage renal disease; E78.5 Hyperlipidemia, unspecified; Z79.899 Other long term (current) drug therapy; Z79.4 Long term (current) use of insulin
CPT/HCPCS: 36415; 70486; 71045; 80053; 83880; 84484; 85025; 93005; 96365; 96367; 96372; 99285; A9270; J0456; J0696; J1650

== ENCOUNTER 2023-02-20 10:07 | Outpatient (CLI) | payer MEDICARE, SELFPAY ==
[2023-02-20 10:35] LABS: Basophils Absolute Auto 0.05 K/mm3 (0.00-0.10); Basophils Percent Auto 0.7 % (0.0-1.0); Eosinophils Absolute Auto 0.21 K/mm3 (0.02-0.50); Eosinophils Percent Auto 2.8 % (1.0-6.0); Hematocrit 42.3 % (40.0-54.0); Hemoglobin 13.4 g/dL (14.0-18.0); Immature Granulocyte Absolute 0.02 K/mm3 (0.00-0.00); Immature Granulocyte Percent A 0.3 % (0.0-0.0); Lymphocytes Absolute Auto 1.04 K/mm3 (1.10-4.50); Mean Corpuscular HGB Conc 31.7 g/dL (32.0-36.0); Mean Corpuscular Hemoglobin 28.6 pg (27.0-31.0); Mean Corpuscular Volume 90.2 fL (78.0-102.0); Mean Platelet Volume 11.9 fl (8.7-11.0); Monocytes Absolute Auto 0.64 K/mm3 (0.10-0.90); Monocytes Percent Auto 8.6 % (2.0-11.0); Neutrophils Absolute Auto 5.5 K/mm3 (1.7-7.2); Neutrophils Percent Auto 73.6 % (50.0-70.0); Platelet Count Result 190 K/mm3 (150-420); Red Blood Count 4.69 M/mm3 (4.70-6.10); Red Cell Distribution Width 15.8 % (11.6-14.4); White Blood Count 7.4 K/mm3 (4.8-10.8)
[2023-02-20 10:49] LABS: Hemoglobin A1C 7.5 % (<5.7)
[2023-02-20 10:53] LABS: Alanine Aminotransferase 55 U/L (16-63); Albumin Level 3.6 g/dL (3.4-5.0); Alkaline Phosphatase 128 U/L (46-116); Anion Gap 6 mmol/L (8-16); Aspartate Amino Transferase 23 U/L (15-37); Bilirubin Direct 0.3 mg/dL (0-0.2); Bilirubin,Total 1.3 mg/dL (0.00-1.00); Blood Urea Nitrogen 44 mg/dL (7-18); Calcium 9.5 mg/dL (8.5-10.1); Carbon Dioxide 30 mmol/L (21-32); Chloride 106 mmol/L (98-108); Cholesterol 126 mg/dL (0-200); Estimated Glomerular Filt Rate 52; Glucose 89 mg/dL (70-99); HDL Direct 68 mg/dL (40-60); LDL Cholesterol Calculated 46 mg/dL (<130); Osmolality Calculated 304 mOsm/kg (285-295); Phosphorus 3.5 mg/dL (2.6-4.7); Potassium 3.8 mmol/L (3.5-5.1); Sodium 142 mmol/L (136-145); Triglycerides 62 mg/dL (0-150)
[2023-02-20 11:02] LABS: Creatinine Urine 63.75 mg/dL (40-278); Total Protein Urine Random 128.6 mg/dL (0.0-11.9); Ur Ttl Prot Creatinine Ratio 2.02 mg/mg (0-0.20)
[2023-02-22 20:09] LABS: Tacrolimus Prograf <1.0 mcg/L
== END 2023-02-20 10:08 | disposition home or self-care (01) ==
PROVIDERS: PCP Internal Medicine
DX: Z94.0 Kidney transplant status (principal); Z79.899 Other long term (current) drug therapy
CPT/HCPCS: 36415; 80061; 80069; 80076; 80197; 82570; 83036; 84156; 85025

== ENCOUNTER 2023-03-01 15:04 | Outpatient (CLI) | payer MEDICARE, SELFPAY ==
--- NOTE | ~2023-03-01 | XR_ITS ---
XR chest 2V DATE: 03/01/2023 15:43 INDICATION: Mid chest pain TECHNIQUE: PA and lateral views COMPARISON: 02/12/2023 portable AP chest FINDINGS: Normal heart size. Aortic calcification and minimal unfolding. There is pulmonary vascular congestion and redistribution and prominence of the fissures suggesting s ubpleural edema. Minimal pleural effusions. Mild bibasilar infiltrate or atelectasis. IMPRESSION: Mild congestive changes and effusions Mild bibasilar infiltrate or atelectasis Reviewed, dictated and finalized at location B. ARMS INSPECTOR
[2023-03-01 15:50] LABS: D Dimer 0.19 mg/L (0.19-0.50)
[2023-03-01 16:04] LABS: Basophils Absolute Auto 0.04 K/mm3 (0.00-0.10); Basophils Percent Auto 0.5 % (0.0-1.0); Eosinophils Absolute Auto 0.29 K/mm3 (0.02-0.50); Eosinophils Percent Auto 3.9 % (1.0-6.0); Hematocrit 42.3 % (40.0-54.0); Hemoglobin 13.5 g/dL (14.0-18.0); Immature Granulocyte Absolute 0.05 K/mm3 (0.00-0.00); Immature Granulocyte Percent A 0.7 % (0.0-0.0); Lymphocytes Absolute Auto 0.83 K/mm3 (1.10-4.50); Lymphocytes Percent Auto 11.3 % (18.0-42.0); Mean Corpuscular HGB Conc 31.9 g/dL (32.0-36.0); Mean Corpuscular Hemoglobin 29.2 pg (27.0-31.0); Mean Corpuscular Volume 91.4 fL (78.0-102.0); Mean Platelet Volume 12.4 fl (8.7-11.0); Monocytes Absolute Auto 0.36 K/mm3 (0.10-0.90); Monocytes Percent Auto 4.9 % (2.0-11.0); Neutrophils Absolute Auto 5.8 K/mm3 (1.7-7.2); Neutrophils Percent Auto 78.7 % (50.0-70.0); Platelet Count Result 150 K/mm3 (150-420); Red Blood Count 4.63 M/mm3 (4.70-6.10); Red Cell Distribution Width 16.8 % (11.6-14.4); White Blood Count 7.4 K/mm3 (4.8-10.8)
[2023-03-01 16:28] LABS: Alanine Aminotransferase 49 U/L (16-63); Albumin Level 3.5 g/dL (3.4-5.0); Alkaline Phosphatase 123 U/L (46-116); Anion Gap 9 mmol/L (8-16); Aspartate Amino Transferase 17 U/L (15-37); Bilirubin,Total 1.4 mg/dL (0.00-1.00); Blood Urea Nitrogen 49 mg/dL (7-18); Calcium 8.1 mg/dL (8.5-10.1); Carbon Dioxide 29 mmol/L (21-32); Chloride 102 mmol/L (98-108); Creatine Kinase 149 U/L (39-308); Estimated Glomerular Filt Rate 48; Glucose 187 mg/dL (70-99); Magnesium 2.4 mg/dL (1.8-2.4); NT Pro B Type Natriuretic Pept 3207 pg/mL (0-125); Osmolality Calculated 308 mOsm/kg (285-295); Potassium 3.6 mmol/L (3.5-5.1); Sodium 140 mmol/L (136-145); Total Protein 6.4 g/dL (6.4-8.2)
[2023-03-01 16:34] LABS: Troponin I 109.7 ng/L (0.00-60.4)
== END 2023-03-01 15:05 | disposition home or self-care (01) ==
LOC: CHSLAB 15:07
PROVIDERS: PCP Internal Medicine; Visit Provider Internal Medicine
DX: R07.9 Chest pain, unspecified (principal); I21.4 Non-ST elevation (NSTEMI) myocardial infarction; R06.02 Shortness of breath; R91.8 Other nonspecific abnormal finding of lung field
CPT/HCPCS: 36415; 71046; 80053; 82550; 82553; 83735; 83880; 84484; 85025; 85380

== ENCOUNTER 2023-03-23 16:29 | Outpatient (CLI) | payer MEDICARE, SELFPAY ==
[2023-03-23 16:59] LABS: Basophils Absolute Auto 0.04 K/mm3 (0.00-0.10); Basophils Percent Auto 0.6 % (0.0-1.0); Eosinophils Absolute Auto 0.37 K/mm3 (0.02-0.50); Eosinophils Percent Auto 5.5 % (1.0-6.0); Hematocrit 43.8 % (40.0-54.0); Hemoglobin 13.8 g/dL (14.0-18.0); Immature Granulocyte Absolute 0.02 K/mm3 (0.00-0.00); Immature Granulocyte Percent A 0.3 % (0.0-0.0); Lymphocytes Absolute Auto 1.16 K/mm3 (1.10-4.50); Lymphocytes Percent Auto 17.2 % (18.0-42.0); Mean Corpuscular HGB Conc 31.5 g/dL (32.0-36.0); Mean Corpuscular Hemoglobin 28.6 pg (27.0-31.0); Mean Corpuscular Volume 90.7 fL (78.0-102.0); Mean Platelet Volume 12.3 fl (8.7-11.0); Monocytes Absolute Auto 0.51 K/mm3 (0.10-0.90); Monocytes Percent Auto 7.6 % (2.0-11.0); Neutrophils Absolute Auto 4.6 K/mm3 (1.7-7.2); Neutrophils Percent Auto 68.8 % (50.0-70.0); Platelet Count Result 146 K/mm3 (150-420); Red Blood Count 4.83 M/mm3 (4.70-6.10); Red Cell Distribution Width 16.9 % (11.6-14.4); White Blood Count 6.7 K/mm3 (4.8-10.8)
[2023-03-23 17:05] LABS: Creatinine Urine 34.31 mg/dL (40-278); Ur Ttl Prot Creatinine Ratio 3.12 mg/mg (0-0.20)
[2023-03-23 17:12] LABS: Albumin Level 3.6 g/dL (3.4-5.0); Anion Gap 7 mmol/L (8-16); Blood Urea Nitrogen 41 mg/dL (7-18); Calcium 8.9 mg/dL (8.5-10.1); Carbon Dioxide 31 mmol/L (21-32); Chloride 105 mmol/L (98-108); Estimated Glomerular Filt Rate 50; Glucose 131 mg/dL (70-99); Osmolality Calculated 308 mOsm/kg (285-295); Phosphorus 3.4 mg/dL (2.6-4.7); Potassium 3.8 mmol/L (3.5-5.1); Sodium 143 mmol/L (136-145)
[2023-03-25 17:54] LABS: Tacrolimus Prograf 2.7 mcg/L
== END 2023-03-23 16:30 | disposition home or self-care (01) ==
LOC: CHSLAB 16:32
PROVIDERS: PCP Internal Medicine
DX: Z94.0 Kidney transplant status (principal); E10.65 Type 1 diabetes mellitus with hyperglycemia; E78.2 Mixed hyperlipidemia; Z79.899 Other long term (current) drug therapy
CPT/HCPCS: 36415; 80069; 80197; 82570; 84156; 85025

== ENCOUNTER 2023-04-22 07:11 | Outpatient (CLI) | payer MEDICARE, SELFPAY ==
[2023-04-22 07:34] LABS: Basophils Absolute Auto 0.03 K/mm3 (0.00-0.10); Basophils Percent Auto 0.5 % (0.0-1.0); Eosinophils Absolute Auto 0.08 K/mm3 (0.02-0.50); Eosinophils Percent Auto 1.2 % (1.0-6.0); Hemoglobin 13.4 g/dL (14.0-18.0); Immature Granulocyte Absolute 0.03 K/mm3 (0.00-0.00); Immature Granulocyte Percent A 0.5 % (0.0-0.0); Lymphocytes Absolute Auto 0.57 K/mm3 (1.10-4.50); Lymphocytes Percent Auto 8.6 % (18.0-42.0); Mean Corpuscular HGB Conc 32.7 g/dL (32.0-36.0); Mean Corpuscular Hemoglobin 29.4 pg (27.0-31.0); Mean Corpuscular Volume 89.9 fL (78.0-102.0); Mean Platelet Volume 13.3 fl (8.7-11.0); Monocytes Absolute Auto 0.48 K/mm3 (0.10-0.90); Monocytes Percent Auto 7.3 % (2.0-11.0); Neutrophils Absolute Auto 5.4 K/mm3 (1.7-7.2); Neutrophils Percent Auto 81.9 % (50.0-70.0); Platelet Count Result 115 K/mm3 (150-420); Red Blood Count 4.56 M/mm3 (4.70-6.10); Red Cell Distribution Width 16.7 % (11.6-14.4); White Blood Count 6.6 K/mm3 (4.8-10.8)
[2023-04-22 08:11] LABS: Creatinine Urine 51.06 mg/dL (40-278); Total Protein Urine Random 243.6 mg/dL (0.0-11.9); Ur Ttl Prot Creatinine Ratio 4.77 mg/mg (0-0.20)
[2023-04-22 08:56] LABS: Albumin Level 3.5 g/dL (3.4-5.0); Anion Gap 12 mmol/L (8-16); Blood Urea Nitrogen 38 mg/dL (7-18); Calcium 8.9 mg/dL (8.5-10.1); Carbon Dioxide 26 mmol/L (21-32); Chloride 105 mmol/L (98-108); Estimated Glomerular Filt Rate 52; Glucose 231 mg/dL (70-99); Osmolality Calculated 312 mOsm/kg (285-295); Phosphorus 2.6 mg/dL (2.6-4.7); Sodium 143 mmol/L (136-145)
[2023-04-24 22:07] LABS: Tacrolimus Prograf 2.4 mcg/L
== END 2023-04-22 07:12 | disposition home or self-care (01) ==
LOC: CHSLAB 07:16
PROVIDERS: PCP Internal Medicine
DX: Z01.812 Encounter for preprocedural laboratory examination (principal); I50.32 Chronic diastolic (congestive) heart failure; I42.8 Other cardiomyopathies
CPT/HCPCS: 36415; 80069; 80197; 82570; 84156; 85025; 85055

== ENCOUNTER 2023-05-22 09:01 | Outpatient (CLI) | payer MEDICARE, SELFPAY ==
[2023-05-22 09:54] LABS: Basophils Absolute Auto 0.04 K/mm3 (0.00-0.10); Basophils Percent Auto 0.9 % (0.0-1.0); Eosinophils Percent Auto 9.3 % (1.0-6.0); Hematocrit 43.8 % (40.0-54.0); Hemoglobin 13.6 g/dL (14.0-18.0); Immature Granulocyte Absolute 0.04 K/mm3 (0.00-0.00); Immature Granulocyte Percent A 0.9 % (0.0-0.0); Lymphocytes Absolute Auto 0.59 K/mm3 (1.10-4.50); Lymphocytes Percent Auto 13.8 % (18.0-42.0); Mean Corpuscular HGB Conc 31.1 g/dL (32-36); Mean Corpuscular Hemoglobin 28.7 pg (27.0-31.0); Mean Corpuscular Volume 92.4 fL (78.0-102.0); Mean Platelet Volume 11.6 fl (8.7-11.0); Monocytes Absolute Auto 0.48 K/mm3 (0.10-0.90); Monocytes Percent Auto 11.2 % (2.0-11.0); Neutrophils Absolute Auto 2.73 K/mm3 (1.70-7.20); Neutrophils Percent Auto 63.9 % (50.0-70.0); Platelet Count Result 180 K/mm3 (150-420); Red Blood Count 4.74 M/mm3 (4.70-6.10); Red Cell Distribution Width 17.9 % (11.6-14.4); White Blood Count 4.3 K/mm3 (4.8-10.8)
[2023-05-22 10:00] LABS: Creatinine Urine 89.89 mg/dL (40-278); Total Protein Urine Random 204.5 mg/dL (0.0-11.9); Ur Ttl Prot Creatinine Ratio 2.28 mg/mg (0-0.20)
[2023-05-22 10:03] LABS: Alanine Aminotransferase 109 U/L (16-63); Albumin Level 3.4 g/dL (3.4-5.0); Alkaline Phosphatase 115 U/L (46-116); Anion Gap 8 mmol/L (4-12); Aspartate Amino Transferase 43 U/L (15-37); Bilirubin Direct 0.3 mg/dL (0-0.2); Bilirubin,Total 1.5 mg/dL (0.00-1.00); Blood Urea Nitrogen 32 mg/dL (7-18); Calcium 8.9 mg/dL (8.5-10.1); Carbon Dioxide 31 mmol/L (21-32); Chloride 105 mmol/L (98-108); Cholesterol 145 mg/dL (0-200); Estimated Glomerular Filt Rate 57; Glucose 126 mg/dL (70-99); HDL Direct 86 mg/dL (40-60); LDL Cholesterol Calculated 40 mg/dL (<130); Osmolality Calculated 306 mOsm/kg (285-295); Phosphorus 3.2 mg/dL (2.6-4.7); Potassium 3.4 mmol/L (3.5-5.1); Sodium 144 mmol/L (136-145); Total Protein 5.9 g/dL (6.4-8.2); Triglycerides 93 mg/dL (0-150)
[2023-05-22 10:10] LABS: Hemoglobin A1C 6.8 % (<5.7)
== END 2023-05-22 09:02 | disposition home or self-care (01) ==
LOC: CHSLAB 09:07
PROVIDERS: PCP Internal Medicine
DX: Z94.0 Kidney transplant status (principal); Z79.899 Other long term (current) drug therapy
CPT/HCPCS: 36415; 80061; 80069; 80076; 80197; 82570; 83036; 84156; 85025

== ENCOUNTER 2023-06-21 07:32 | Outpatient (CLI) | payer MEDICARE, SELFPAY ==
[2023-06-21 07:58] LABS: Basophils Absolute Auto 0.02 K/mm3 (0.00-0.10); Basophils Percent Auto 0.4 % (0.0-1.0); Eosinophils Absolute Auto 0.22 K/mm3 (0.02-0.50); Eosinophils Percent Auto 4.7 % (1.0-6.0); Hematocrit 48.5 % (40.0-54.0); Hemoglobin 15.5 g/dL (14.0-18.0); Immature Granulocyte Absolute 0.11 K/mm3 (0.00-0.00); Immature Granulocyte Percent A 2.4 % (0.0-0.0); Immature Platelet Fraction Pct 2.2 % (1.0-7.0); Lymphocytes Absolute Auto 0.81 K/mm3 (1.10-4.50); Lymphocytes Percent Auto 17.4 % (18.0-42.0); Mean Corpuscular Hemoglobin 29.5 pg (27.0-31.0); Mean Corpuscular Volume 92.2 fL (78.0-102.0); Mean Platelet Volume 10.3 fl (8.7-11.0); Monocytes Absolute Auto 0.36 K/mm3 (0.10-0.90); Monocytes Percent Auto 7.7 % (2.0-11.0); Neutrophils Absolute Auto 3.14 K/mm3 (1.70-7.20); Neutrophils Percent Auto 67.4 % (50.0-70.0); Nucleated Red Blood Cells Absolute Auto 0.02 K/mm3 (0.00-0.00); Nucleated Red Blood Cells Perc 0.4 % (0-0.0); Platelet Count Result 110 K/mm3 (150-420); Red Blood Count 5.26 M/mm3 (4.70-6.10); White Blood Count 4.7 K/mm3 (4.8-10.8)
[2023-06-21 08:14] LABS: Creatinine Urine 74.81 mg/dL (40-278); Total Protein Urine Random 187.8 mg/dL (0.0-11.9); Ur Ttl Prot Creatinine Ratio 2.51 mg/mg (0-0.20)
[2023-06-21 08:46] LABS: Alanine Aminotransferase 88 U/L (16-63); Albumin Level 3.5 g/dL (3.4-5.0); Alkaline Phosphatase 100 U/L (46-116); Anion Gap 9 mmol/L (4-12); Aspartate Amino Transferase 17 U/L (15-37); Bilirubin Direct 0.3 mg/dL (0-0.2); Blood Urea Nitrogen 28 mg/dL (7-18); Calcium 9.4 mg/dL (8.5-10.1); Carbon Dioxide 30 mmol/L (21-32); Chloride 105 mmol/L (98-108); Estimated Glomerular Filt Rate 60; Glucose 119 mg/dL (70-99); Osmolality Calculated 304 mOsm/kg (285-295); Phosphorus 3.3 mg/dL (2.6-4.7); Potassium 3.2 mmol/L (3.5-5.1); Sodium 144 mmol/L (136-145)
[2023-06-23 04:48] LABS: Protein, Total 5.8 g/dL (6.1-8.1)
[2023-06-23 15:29] LABS: Albumin 3.8 g/dL (3.8-4.8); Alpha 1 Globulin 0.2 g/dL (0.2-0.3); Alpha 2 Globulin 0.6 g/dL (0.5-0.9); Beta 1 Globulin 0.4 g/dL (0.4-0.6); Gamma Globulin 0.6 g/dL (0.8-1.7)
[2023-06-23 16:10] LABS: Tacrolimus Prograf 2.4 mcg/L
[2023-06-25 11:33] LABS: Kappa\\Lambda Light Chains 1.17 (0.26-1.65); Lambda Light Chain 20.1 mg/L (5.7-26.3)
== END 2023-06-21 07:33 | disposition home or self-care (01) ==
LOC: CHSLAB 07:36
PROVIDERS: PCP Internal Medicine
DX: C90.00 Multiple myeloma not having achieved remission (principal)
CPT/HCPCS: 36415; 80053; 80197; 82248; 82570; 83883; 84100; 84155; 84156; 84165; 85025; 85055

== ENCOUNTER 2023-06-25 08:23 | Outpatient (CLI) | payer MEDICARE, SELFPAY ==
--- NOTE | ~2023-06-25 | CT_ITS ---
Pre and postcontrast Head CT History: Multiple myeloma Technique: Axial imaging of the brain was performed prior to and following intravenous administratio n of 100 cc of Omnipaque 350 contrast material. Dose reduction technique was used on this scan by uti lizing automated exposure control and iterative reconstruction technique. The dose-length product (DL P) was 1210.67 mGy-cm. COMPARISON: 11/11/2022 Findings: There is no evidence of intracranial hemorrhage, mass lesion, or acute infarct. Brain par enchyma appears normal. The ventricles and subarachnoid spaces are normal in size. The calvarium ap pears normal. The visualized paranasal sinuses and mastoid air cells are clear. No abnormal postcontrast enhancement seen. Impression: No significant abnormality seen. Reviewed, dictated and finalized at [facility]. Impression: No significant abnormality seen.
== END 2023-06-25 08:24 | disposition home or self-care (01) ==
LOC: CHSIMG 08:25
PROVIDERS: PCP Internal Medicine; Visit Provider Otolaryngology
DX: C90.00 Multiple myeloma not having achieved remission (principal)
CPT/HCPCS: 70470; Q9967

== ENCOUNTER 2023-07-13 08:01 | Outpatient (CLI) | payer MEDICARE, SELFPAY | END 2023-07-13 08:02 | disposition home or self-care (01) | LOC: ANHAUDIO 08:01 | PROVIDERS: PCP Internal Medicine; Visit Provider Otolaryngology | DX: H65.23 Chronic serous otitis media, bilateral (principal); H90.3 Sensorineural hearing loss, bilateral | CPT/HCPCS: 92557; 92567 ==

== ENCOUNTER 2023-07-26 09:08 | Outpatient (CLI) | payer MEDICARE, SELFPAY ==
[2023-07-26 09:30] LABS: Basophils Absolute Auto 0.02 K/mm3 (0.00-0.10); Basophils Percent Auto 0.3 % (0.0-1.0); Eosinophils Absolute Auto 0.22 K/mm3 (0.02-0.50); Eosinophils Percent Auto 3.1 % (1.0-6.0); Hematocrit 48.3 % (40.0-54.0); Hemoglobin 15.9 g/dL (14.0-18.0); Immature Granulocyte Absolute 0.06 K/mm3 (0.00-0.00); Immature Granulocyte Percent A 0.9 % (0.0-0.0); Lymphocytes Absolute Auto 0.79 K/mm3 (1.10-4.50); Lymphocytes Percent Auto 11.3 % (18.0-42.0); Mean Corpuscular HGB Conc 32.9 g/dL (32-36); Mean Corpuscular Hemoglobin 30.2 pg (27.0-31.0); Mean Corpuscular Volume 91.8 fL (78.0-102.0); Mean Platelet Volume 12.1 fl (8.7-11.0); Monocytes Absolute Auto 0.72 K/mm3 (0.10-0.90); Monocytes Percent Auto 10.3 % (2.0-11.0); Neutrophils Absolute Auto 5.18 K/mm3 (1.70-7.20); Neutrophils Percent Auto 74.1 % (50.0-70.0); Platelet Count Result 131 K/mm3 (150-420); Red Blood Count 5.26 M/mm3 (4.70-6.10); Red Cell Distribution Width 16.7 % (11.6-14.4)
[2023-07-26 09:35] LABS: Total Protein Urine Random 156.6 mg/dL (0.0-11.9); Ur Ttl Prot Creatinine Ratio 2.07 mg/mg (0-0.20)
[2023-07-26 09:44] LABS: Albumin Level 3.5 g/dL (3.4-5.0); Anion Gap 9 mmol/L (4-12); Blood Urea Nitrogen 27 mg/dL (7-18); Carbon Dioxide 30 mmol/L (21-32); Chloride 104 mmol/L (98-108); Estimated Glomerular Filt Rate 55; Glucose 134 mg/dL (70-99); Osmolality Calculated 303 mOsm/kg (285-295); Phosphorus 2.7 mg/dL (2.6-4.7); Potassium 3.2 mmol/L (3.5-5.1); Sodium 143 mmol/L (136-145)
[2023-07-28 15:54] LABS: Tacrolimus Prograf 1.4 mcg/L
== END 2023-07-26 09:09 | disposition home or self-care (01) ==
LOC: CHSLAB 09:11
PROVIDERS: PCP Internal Medicine
DX: E10.65 Type 1 diabetes mellitus with hyperglycemia (principal); E78.2 Mixed hyperlipidemia; N39.0 Urinary tract infection, site not specified; Z94.0 Kidney transplant status; Z79.899 Other long term (current) drug therapy
CPT/HCPCS: 36415; 80069; 80197; 82570; 84156; 85025

== ENCOUNTER 2023-08-25 08:40 | Outpatient (CLI) | payer MEDICARE, SELFPAY ==
[2023-08-25 09:29] LABS: Basophils Absolute Auto 0.03 K/mm3 (0.00-0.10); Basophils Percent Auto 0.6 % (0.0-1.0); Eosinophils Percent Auto 3.8 % (1.0-6.0); Hematocrit 47.8 % (40.0-54.0); Hemoglobin 16.1 g/dL (14.0-18.0); Immature Granulocyte Absolute 0.05 K/mm3 (0.00-0.00); Immature Platelet Fraction Pct 2.3 % (1.0-7.0); Lymphocytes Absolute Auto 0.74 K/mm3 (1.10-4.50); Lymphocytes Percent Auto 14.1 % (18.0-42.0); Mean Corpuscular HGB Conc 33.7 g/dL (32-36); Mean Corpuscular Hemoglobin 31.6 pg (27.0-31.0); Mean Corpuscular Volume 93.9 fL (78.0-102.0); Mean Platelet Volume 12.7 fl (8.7-11.0); Monocytes Absolute Auto 0.58 K/mm3 (0.10-0.90); Neutrophils Absolute Auto 3.66 K/mm3 (1.70-7.20); Neutrophils Percent Auto 69.5 % (50.0-70.0); Platelet Count Result 88 K/mm3 (150-420); Red Blood Count 5.09 M/mm3 (4.70-6.10); Red Cell Distribution Width 15.6 % (11.6-14.4); White Blood Count 5.3 K/mm3 (4.8-10.8)
[2023-08-25 09:33] LABS: Creatinine Urine 95.41 mg/dL (40-278); Total Protein Urine Random 185.7 mg/dL (0.0-11.9); Ur Ttl Prot Creatinine Ratio 1.95 mg/mg (0-0.20)
[2023-08-25 09:40] LABS: Hemoglobin A1C 6.7 % (<5.7)
[2023-08-25 10:09] LABS: Alanine Aminotransferase 67 U/L (16-63); Albumin Level 3.5 g/dL (3.4-5.0); Alkaline Phosphatase 90 U/L (46-116); Anion Gap 9 mmol/L (4-12); Aspartate Amino Transferase 27 U/L (15-37); Bilirubin Direct 0.4 mg/dL (0-0.2); Bilirubin,Total 2.8 mg/dL (0.00-1.00); Blood Urea Nitrogen 21 mg/dL (7-18); Calcium 9.1 mg/dL (8.5-10.1); Carbon Dioxide 30 mmol/L (21-32); Chloride 105 mmol/L (98-108); Cholesterol 162 mg/dL (0-200); Estimated Glomerular Filt Rate 55; Glucose 112 mg/dL (70-99); HDL Direct 80 mg/dL (40-60); LDL Cholesterol Calculated 53 mg/dL (<130); Osmolality Calculated 302 mOsm/kg (285-295); Phosphorus 2.5 mg/dL (2.6-4.7); Potassium 3.5 mmol/L (3.5-5.1); Sodium 144 mmol/L (136-145); Total Protein 6.1 g/dL (6.4-8.2); Triglycerides 146 mg/dL (0-150)
[2023-08-26 16:03] LABS: Tacrolimus Prograf 1.7 mcg/L
== END 2023-08-25 08:41 | disposition home or self-care (01) ==
LOC: CHSLAB 08:45
PROVIDERS: PCP Internal Medicine
DX: Z94.0 Kidney transplant status (principal); E10.65 Type 1 diabetes mellitus with hyperglycemia; E78.2 Mixed hyperlipidemia; N39.0 Urinary tract infection, site not specified
CPT/HCPCS: 36415; 80061; 80069; 80076; 80197; 82570; 83036; 84156; 85025; 85055

== ENCOUNTER 2023-09-10 07:27 | Outpatient (CLI) | payer MEDICARE, SELFPAY ==
[2023-09-10 08:53] LABS: Anion Gap 9 mmol/L (4-12); Blood Urea Nitrogen 31 mg/dL (7-18); Calcium 9.2 mg/dL (8.5-10.1); Carbon Dioxide 28 mmol/L (21-32); Chloride 105 mmol/L (98-108); Estimated Glomerular Filt Rate 49; Glucose 129 mg/dL (70-99); Osmolality Calculated 302 mOsm/kg (285-295); Sodium 142 mmol/L (136-145)
== END 2023-09-10 07:28 | disposition home or self-care (01) ==
LOC: CHSLAB 07:31
PROVIDERS: PCP Internal Medicine
DX: I50.32 Chronic diastolic (congestive) heart failure (principal); I50.33 Acute on chronic diastolic (congestive) heart failure; N18.6 End stage renal disease
CPT/HCPCS: 36415; 80048

== ENCOUNTER 2023-09-27 08:04 | Outpatient (CLI) | payer MEDICARE, SELFPAY ==
[2023-09-27 08:24] LABS: Eosinophils Absolute Auto 0.07 K/mm3 (0.02-0.50); Eosinophils Percent Auto 1.7 % (1.0-6.0); Hematocrit 47.7 % (40.0-54.0); Immature Granulocyte Absolute 0.01 K/mm3 (0.00-0.00); Immature Granulocyte Percent A 0.2 % (0.0-0.0); Lymphocytes Absolute Auto 0.85 K/mm3 (1.10-4.50); Lymphocytes Percent Auto 20.5 % (18.0-42.0); Mean Corpuscular HGB Conc 33.5 g/dL (32-36); Mean Corpuscular Hemoglobin 30.8 pg (27.0-31.0); Mean Corpuscular Volume 91.9 fL (78.0-102.0); Mean Platelet Volume 11.4 fl (8.7-11.0); Monocytes Absolute Auto 0.36 K/mm3 (0.10-0.90); Monocytes Percent Auto 8.7 % (2.0-11.0); Neutrophils Absolute Auto 2.86 K/mm3 (1.70-7.20); Neutrophils Percent Auto 68.9 % (50.0-70.0); Platelet Count Result 119 K/mm3 (150-420); Red Blood Count 5.19 M/mm3 (4.70-6.10); Red Cell Distribution Width 14.6 % (11.6-14.4); White Blood Count 4.2 K/mm3 (4.8-10.8)
[2023-09-27 08:32] LABS: Creatinine Urine 99.68 mg/dL (40-278); Total Protein Urine Random 97.9 mg/dL (0.0-11.9); Ur Ttl Prot Creatinine Ratio 0.98 mg/mg (0-0.20)
[2023-09-27 09:34] LABS: Albumin Level 3.8 g/dL (3.4-5.0); Anion Gap 8 mmol/L (4-12); Blood Urea Nitrogen 23 mg/dL (7-18); Calcium 9.4 mg/dL (8.5-10.1); Carbon Dioxide 30 mmol/L (21-32); Chloride 103 mmol/L (98-108); Estimated Glomerular Filt Rate 60; Glucose 101 mg/dL (70-99); Osmolality Calculated 295 mOsm/kg (285-295); Phosphorus 2.5 mg/dL (2.6-4.7); Potassium 3.4 mmol/L (3.5-5.1); Sodium 141 mmol/L (136-145)
[2023-09-29 15:44] LABS: Tacrolimus Prograf 1.4 mcg/L
== END 2023-09-27 08:05 | disposition home or self-care (01) ==
LOC: CHSLAB 08:12
PROVIDERS: PCP Internal Medicine
DX: Z94.0 Kidney transplant status (principal); E78.2 Mixed hyperlipidemia
CPT/HCPCS: 36415; 80069; 80197; 82570; 84156; 85025

== ENCOUNTER 2023-10-26 12:20 | Outpatient (CLI) | payer MEDICARE, SELFPAY ==
[2023-10-26 12:45] LABS: Basophils Absolute Auto 0.01 K/mm3 (0.00-0.10); Basophils Percent Auto 0.2 % (0.0-1.0); Eosinophils Absolute Auto 0.06 K/mm3 (0.02-0.50); Eosinophils Percent Auto 0.9 % (1.0-6.0); Hematocrit 46.9 % (40.0-54.0); Hemoglobin 16.2 g/dL (14.0-18.0); Immature Granulocyte Absolute 0.02 K/mm3 (0.00-0.00); Immature Granulocyte Percent A 0.3 % (0.0-0.0); Immature Platelet Fraction Pct 1.9 % (1.0-7.0); Lymphocytes Absolute Auto 0.95 K/mm3 (1.10-4.50); Lymphocytes Percent Auto 14.6 % (18.0-42.0); Mean Corpuscular HGB Conc 34.5 g/dL (32-36); Mean Corpuscular Hemoglobin 31.5 pg (27.0-31.0); Mean Corpuscular Volume 91.2 fL (78.0-102.0); Mean Platelet Volume 10.5 fl (8.7-11.0); Monocytes Absolute Auto 0.56 K/mm3 (0.10-0.90); Monocytes Percent Auto 8.6 % (2.0-11.0); Neutrophils Absolute Auto 4.89 K/mm3 (1.70-7.20); Neutrophils Percent Auto 75.4 % (50.0-70.0); Platelet Count Result 117 K/mm3 (150-420); Red Blood Count 5.14 M/mm3 (4.70-6.10); White Blood Count 6.5 K/mm3 (4.8-10.8)
[2023-10-26 12:49] LABS: Creatinine Urine 117.58 mg/dL (40-278); Total Protein Urine Random 113.2 mg/dL (0.0-11.9); Ur Ttl Prot Creatinine Ratio 0.96 mg/mg (0-0.20)
[2023-10-26 13:36] LABS: Anion Gap 9 mmol/L (4-12); Blood Urea Nitrogen 23 mg/dL (7-18); Calcium 9.7 mg/dL (8.5-10.1); Carbon Dioxide 29 mmol/L (21-32); Chloride 105 mmol/L (98-108); Estimated Glomerular Filt Rate 57; Glucose 86 mg/dL (70-99); Osmolality Calculated 298 mOsm/kg (285-295); Phosphorus 2.7 mg/dL (2.6-4.7); Potassium 3.2 mmol/L (3.5-5.1); Sodium 143 mmol/L (136-145)
[2023-10-29 12:54] LABS: Tacrolimus Prograf <1.0 mcg/L
== END 2023-10-26 12:21 | disposition home or self-care (01) ==
LOC: CHSLAB 12:26
PROVIDERS: PCP Internal Medicine
DX: Z94.0 Kidney transplant status (principal); Z79.899 Other long term (current) drug therapy; E10.65 Type 1 diabetes mellitus with hyperglycemia; E78.2 Mixed hyperlipidemia; N39.0 Urinary tract infection, site not specified
CPT/HCPCS: 36415; 80069; 80197; 82570; 84156; 85025; 85055

== ENCOUNTER 2023-11-25 07:29 | Outpatient (CLI) | payer MEDICARE, SELFPAY ==
[2023-11-25 07:55] LABS: Basophils Absolute Auto 0.01 K/mm3 (0.00-0.10); Basophils Percent Auto 0.2 % (0.0-1.0); Eosinophils Percent Auto 2.3 % (1.0-6.0); Hematocrit 46.7 % (40.0-54.0); Hemoglobin 15.9 g/dL (14.0-18.0); Immature Granulocyte Absolute 0.01 K/mm3 (0.00-0.00); Immature Granulocyte Percent A 0.2 % (0.0-0.0); Immature Platelet Fraction Pct 1.9 % (1.0-7.0); Lymphocytes Absolute Auto 0.82 K/mm3 (1.10-4.50); Lymphocytes Percent Auto 19.1 % (18.0-42.0); Mean Corpuscular Hemoglobin 30.9 pg (27.0-31.0); Mean Corpuscular Volume 90.9 fL (78.0-102.0); Mean Platelet Volume 10.5 fl (8.7-11.0); Monocytes Absolute Auto 0.62 K/mm3 (0.10-0.90); Monocytes Percent Auto 14.5 % (2.0-11.0); Neutrophils Absolute Auto 2.73 K/mm3 (1.70-7.20); Neutrophils Percent Auto 63.7 % (50.0-70.0); Platelet Count Result 100 K/mm3 (150-420); Red Blood Count 5.14 M/mm3 (4.70-6.10); Red Cell Distribution Width 13.2 % (11.6-14.4); White Blood Count 4.3 K/mm3 (4.8-10.8)
[2023-11-25 08:03] LABS: Creatinine Urine 91.75 mg/dL (40-278); Total Protein Urine Random 106.4 mg/dL (0.0-11.9); Ur Ttl Prot Creatinine Ratio 1.16 mg/mg (0-0.20)
[2023-11-25 08:08] LABS: Hemoglobin A1C 6.3 % (<5.7)
[2023-11-25 08:46] LABS: Alanine Aminotransferase 72 U/L (16-63); Albumin Level 3.7 g/dL (3.4-5.0); Alkaline Phosphatase 108 U/L (46-116); Anion Gap 5 mmol/L (4-12); Aspartate Amino Transferase 28 U/L (15-37); Bilirubin Direct 0.3 mg/dL (0-0.2); Bilirubin,Total 2.3 mg/dL (0.00-1.00); Blood Urea Nitrogen 32 mg/dL (7-18); Calcium 8.7 mg/dL (8.5-10.1); Carbon Dioxide 31 mmol/L (21-32); Chloride 106 mmol/L (98-108); Cholesterol 147 mg/dL (0-200); Estimated Glomerular Filt Rate 52; Glucose 135 mg/dL (70-99); HDL Direct 45 mg/dL (40-60); LDL Cholesterol Calculated 49 mg/dL (<130); Osmolality Calculated 302 mOsm/kg (285-295); Phosphorus 2.9 mg/dL (2.6-4.7); Potassium 3.5 mmol/L (3.5-5.1); Sodium 142 mmol/L (136-145); Total Protein 6.2 g/dL (6.4-8.2); Triglycerides 265 mg/dL (0-150)
[2023-11-26 14:59] LABS: Tacrolimus Prograf 3.4 mcg/L
== END 2023-11-25 07:30 | disposition home or self-care (01) ==
LOC: CHSLAB 07:34
PROVIDERS: PCP Internal Medicine
DX: E10.65 Type 1 diabetes mellitus with hyperglycemia (principal); Z94.0 Kidney transplant status
CPT/HCPCS: 36415; 80061; 80069; 80076; 80197; 82570; 83036; 84156; 85025; 85055

== ENCOUNTER 2023-12-28 07:21 | Outpatient (CLI) | payer MEDICARE, SELFPAY ==
[2023-12-28 07:43] LABS: Basophils Absolute Auto 0.01 K/mm3 (0.00-0.10); Basophils Percent Auto 0.2 % (0.0-1.0); Eosinophils Absolute Auto 0.06 K/mm3 (0.02-0.50); Hematocrit 48.8 % (40.0-54.0); Immature Granulocyte Absolute 0.02 K/mm3 (0.00-0.00); Immature Granulocyte Percent A 0.3 % (0.0-0.0); Immature Platelet Fraction Pct 1.7 % (1.0-7.0); Lymphocytes Absolute Auto 0.97 K/mm3 (1.10-4.50); Lymphocytes Percent Auto 15.9 % (18.0-42.0); Mean Corpuscular HGB Conc 34.8 g/dL (32-36); Mean Corpuscular Hemoglobin 31.4 pg (27.0-31.0); Mean Platelet Volume 10.4 fl (8.7-11.0); Monocytes Absolute Auto 0.45 K/mm3 (0.10-0.90); Monocytes Percent Auto 7.4 % (2.0-11.0); Neutrophils Absolute Auto 4.58 K/mm3 (1.70-7.20); Neutrophils Percent Auto 75.2 % (50.0-70.0); Platelet Count Result 106 K/mm3 (150-420); Red Blood Count 5.42 M/mm3 (4.70-6.10); Red Cell Distribution Width 13.3 % (11.6-14.4); White Blood Count 6.1 K/mm3 (4.8-10.8)
[2023-12-28 07:58] LABS: Creatinine Urine 97.43 mg/dL (40-278); Total Protein Urine Random 83.1 mg/dL (0.0-11.9); Ur Ttl Prot Creatinine Ratio 0.85 mg/mg (0-0.20)
[2023-12-28 08:37] LABS: Albumin Level 3.9 g/dL (3.4-5.0); Anion Gap 10 mmol/L (4-12); Blood Urea Nitrogen 29 mg/dL (7-18); Calcium 9.6 mg/dL (8.5-10.1); Carbon Dioxide 29 mmol/L (21-32); Chloride 105 mmol/L (98-108); Estimated Glomerular Filt Rate 55; Glucose 128 mg/dL (70-99); Osmolality Calculated 305 mOsm/kg (285-295); Phosphorus 2.6 mg/dL (2.6-4.7); Potassium 3.4 mmol/L (3.5-5.1); Sodium 144 mmol/L (136-145)
[2023-12-31 08:12] LABS: Tacrolimus Prograf 2.3 mcg/L
== END 2023-12-28 07:22 | disposition home or self-care (01) ==
LOC: CHSLAB 07:26
PROVIDERS: PCP Internal Medicine
DX: E10.65 Type 1 diabetes mellitus with hyperglycemia (principal); Z94.0 Kidney transplant status
CPT/HCPCS: 36415; 80069; 80197; 82570; 84156; 85025; 85055

== ENCOUNTER 2024-01-25 07:29 | Outpatient (CLI) | payer MEDICARE, SELFPAY ==
[2024-01-25 08:40] LABS: Basophils Absolute Auto 0.01 K/mm3 (0.00-0.10); Basophils Percent Auto 0.1 % (0.0-1.0); Eosinophils Absolute Auto 0.03 K/mm3 (0.02-0.50); Eosinophils Percent Auto 0.4 % (1.0-6.0); Hematocrit 49.8 % (40.0-54.0); Hemoglobin 17.5 g/dL (14.0-18.0); Immature Granulocyte Absolute 0.05 K/mm3 (0.00-0.00); Immature Granulocyte Percent A 0.6 % (0.0-0.0); Immature Platelet Fraction Pct 2.2 % (1.0-7.0); Lymphocytes Absolute Auto 1.12 K/mm3 (1.10-4.50); Lymphocytes Percent Auto 13.7 % (18.0-42.0); Mean Corpuscular HGB Conc 35.1 g/dL (32-36); Mean Corpuscular Hemoglobin 31.3 pg (27.0-31.0); Mean Corpuscular Volume 88.9 fL (78.0-102.0); Mean Platelet Volume 9.9 fl (8.7-11.0); Monocytes Absolute Auto 0.53 K/mm3 (0.10-0.90); Monocytes Percent Auto 6.5 % (2.0-11.0); Neutrophils Absolute Auto 6.46 K/mm3 (1.70-7.20); Neutrophils Percent Auto 78.7 % (50.0-70.0); Platelet Count Result 118 K/mm3 (150-420); Red Cell Distribution Width 13.4 % (11.6-14.4); White Blood Count 8.2 K/mm3 (4.8-10.8)
[2024-01-25 08:47] LABS: Creatinine Urine 81.61 mg/dL (40-278); Total Protein Urine Random 64.4 mg/dL (0.0-11.9); Ur Ttl Prot Creatinine Ratio 0.79 mg/mg (0-0.20)
[2024-01-25 09:16] LABS: Anion Gap 11 mmol/L (4-12); Blood Urea Nitrogen 24 mg/dL (7-18); Calcium 9.6 mg/dL (8.5-10.1); Carbon Dioxide 28 mmol/L (21-32); Chloride 101 mmol/L (98-108); Estimated Glomerular Filt Rate 56; Glucose 138 mg/dL (70-99); Osmolality Calculated 296 mOsm/kg (285-295); Phosphorus 2.8 mg/dL (2.6-4.7); Potassium 3.2 mmol/L (3.5-5.1); Sodium 140 mmol/L (136-145)
[2024-01-26 15:09] LABS: Tacrolimus Prograf 3.7 mcg/L
== END 2024-01-25 07:30 | disposition home or self-care (01) ==
PROVIDERS: PCP Internal Medicine
DX: I50.33 Acute on chronic diastolic (congestive) heart failure (principal); I10 Essential (primary) hypertension; I50.32 Chronic diastolic (congestive) heart failure
CPT/HCPCS: 36415; 80069; 80197; 82570; 84156; 85025; 85055

== ENCOUNTER 2024-02-25 11:32 | Outpatient (CLI) | payer MEDICARE, SELFPAY ==
[2024-02-25 11:58] LABS: Basophils Absolute Auto 0.02 K/mm3 (0.00-0.10); Basophils Percent Auto 0.2 % (0.0-1.0); Eosinophils Absolute Auto 0.03 K/mm3 (0.02-0.50); Eosinophils Percent Auto 0.4 % (1.0-6.0); Hematocrit 46.8 % (40.0-54.0); Hemoglobin 16.3 g/dL (14.0-18.0); Immature Granulocyte Absolute 0.04 K/mm3 (0.00-0.00); Immature Granulocyte Percent A 0.5 % (0.0-0.0); Lymphocytes Absolute Auto 1.32 K/mm3 (1.10-4.50); Lymphocytes Percent Auto 15.5 % (18.0-42.0); Mean Corpuscular HGB Conc 34.8 g/dL (32-36); Mean Corpuscular Hemoglobin 30.9 pg (27.0-31.0); Mean Corpuscular Volume 88.6 fL (78.0-102.0); Mean Platelet Volume 9.6 fl (8.7-11.0); Monocytes Absolute Auto 0.52 K/mm3 (0.10-0.90); Monocytes Percent Auto 6.1 % (2.0-11.0); Neutrophils Absolute Auto 6.56 K/mm3 (1.70-7.20); Neutrophils Percent Auto 77.3 % (50.0-70.0); Platelet Count Result 150 K/mm3 (150-420); Red Blood Count 5.28 M/mm3 (4.70-6.10); White Blood Count 8.5 K/mm3 (4.8-10.8)
[2024-02-25 12:28] LABS: Hemoglobin A1C 7.7 % (<5.7)
[2024-02-25 12:34] LABS: Creatinine Urine 102.95 mg/dL (40-278)
[2024-02-25 12:35] LABS: MALB Creatinine Ratio 388.5 mg/g (0-30); Microalbumin Urine Random > 400.0 mg/L
[2024-02-25 12:49] LABS: Alanine Aminotransferase 54 U/L (16-63); Albumin Level 4.4 g/dL (3.4-5.0); Alkaline Phosphatase 100 U/L (46-116); Anion Gap 12 mmol/L (4-12); Aspartate Amino Transferase 29 U/L (15-37); Bilirubin Direct 0.3 mg/dL (0-0.2); Bilirubin,Total 2.6 mg/dL (0.00-1.00); Blood Urea Nitrogen 33 mg/dL (7-18); Calcium 9.9 mg/dL (8.5-10.1); Carbon Dioxide 25 mmol/L (21-32); Chloride 105 mmol/L (98-108); Cholesterol 165 mg/dL (0-200); Estimated Glomerular Filt Rate 49; Glucose 145 mg/dL (70-99); HDL Direct 45 mg/dL (40-60); LDL Cholesterol Calculated 61 mg/dL (<130); Osmolality Calculated 304 mOsm/kg (285-295); Phosphorus 2.4 mg/dL (2.6-4.7); Potassium 3.6 mmol/L (3.5-5.1); Sodium 142 mmol/L (136-145); Total Protein 6.6 g/dL (6.4-8.2); Triglycerides 293 mg/dL (0-150)
[2024-02-28 15:13] LABS: Tacrolimus Prograf 2.8 mcg/L
== END 2024-02-25 11:33 | disposition home or self-care (01) ==
PROVIDERS: PCP Internal Medicine
DX: E10.65 Type 1 diabetes mellitus with hyperglycemia (principal); Z94.0 Kidney transplant status
CPT/HCPCS: 36415; 80061; 80069; 80076; 80197; 82043; 83036; 85025

== ENCOUNTER 2024-03-14 14:58 | Outpatient (CLI) | payer OTHER, SELFPAY ==
--- NOTE | ~2024-03-14 | XR_ITS ---
EXAMINATION: XR hip LT 2V w AP pelvis DATE: 03/14/2024 15:27 INDICATION: Fall. Hip pain. TECHNIQUE: An anteroposterior view of the pelvis and 2 views of left hip were obtained. COMPARISON: Pelvis radiograph 07/11/2022 FINDINGS: Alignment is normal. No fracture. There are scattered sclerotic lesions of bone. There is m oderate osteoarthritis of the hips. IMPRESSION: 1. Moderate osteoarthritis of the hips. 2. Chronic bone lesions, consistent with metastatic disease. Reviewed, dictated and finalized at location A. HT STEWARD
--- NOTE | ~2024-03-14 | CT_ITS ---
EXAMINATION: CT brain wo con DATE: 03/14/2024 15:15 INDICATION: Fall. TECHNIQUE: Computed tomography (CT) of the head was performed without intravenous contrast. The mA wa s adjusted according to patient size. Iterative reconstruction technique was employed. The dose-lengt h product was 605.33 mGy-cm. COMPARISON: Head CT 06/25/2023 FINDINGS: There are scattered areas of low attenuation in the cerebral white matter. There is no intr acranial hemorrhage, acute infarction, or abnormal intracranial mass lesion. The ventricles are mark l in size. The orbits are normal. There is mild mucosal thickening in the paranasal sinuses. The mast oid air cells are normal. IMPRESSION: 1. Stable moderate nonspecific cerebral white matter disease, which likely represents chronic small v essel ischemic disease. Reviewed, dictated and finalized at location A. AINABILITY COACH IMPRESSION: 1. Stable moderate nonspecific cerebral white matter disease, which likely repr esents chronic small vessel ischemic disease.
--- NOTE | ~2024-03-14 | XR_ITS ---
EXAMINATION: XR elbow LT min 3V DATE: 03/14/2024 15:26 INDICATION: Left elbow injury. Fall. TECHNIQUE: 4 views of left elbow were obtained. COMPARISON: None. FINDINGS: Alignment is normal. No fracture. There is mild elbow joint osteoarthritis. No elbow joint effusion. IMPRESSION: 1. Mild elbow joint osteoarthritis. Reviewed, dictated and finalized at location A. IFF
--- OUTSIDE RECORDS SUMMARY | 2024-03-14 15:28 | XMS_ITS | Encounter Summary ---
Author Organization [facility] Address [address] [place] [address] Phone Care Team Providers Care Front Desk Supervisor Name Role Phone Rigo Alvarenga MD Primary Care Provider Ag Malcolm MD Primary Care Provider [phone] Rigo Alvarenga MD Primary Care Provider Ag Malcolm MD Primary Care Provider Rigo Alvarenga MD Primary Care Provider Ag Malcolm MD Primary Care Provider Ag Malcolm MD Primary Care Provider Rigo Alvarenga MD Primary Care Provider Malgorzata Edwards RN Unavailable [phone] Marguerite Carson Unavailable Unavail able Tamy Arcos RN Unavailable Chase Durbin MD Unavailable Pavithra Tavarez RN Unavailable Rand Collins RN Unavailable [phone] Felipe Foss MD Unavailable [phone] Encounter Details Date Type Department Care Team (Latest Contact Info) Description 12/04/2016 Orders Only [facility] CONVERSION Scanning, Provider Social History Tobacco Use Types Packs/Day Years Used Date Smoking Tobacco: Never Sex and Gender Information Value Date Recorded Sex Assigned at Not on file Legal 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 Gender Identity Not on file Sexual Orientation Not on file documented as of this encounter Plan of Treatment Not on file documented as of this encounter Procedures Procedure Name Priority Date/Time Associated Diagnosis Comments VASCULAR LABORATORY REPORT 12/04/2016 9:58 AM CDT documented in this encounter Results * VASCULAR LABORATORY REPORT (12/04/2016 9:58 AM CDT) Anatomical Region Laterality Modality Ultrasound us Provider Scanning CV VASCULAR PROCEDURES Final R esult documented in this encounter Visit Diagnoses Not on filedocumented in this encounter Additional Health Concerns Infection Onset Date Last Indicated Resolved Time COVID: Suspected Comment:05/31/2019 IP Review- Per RN, patient was tested for preoperative screening. Isolation removed. Nicole Resendez RN 05/30/2019 05/30/2019 05/31/2019 7:12 AM CDT COVID: Suspected Comment:Removed after ID review. 06/20/2019 Cora Horne 06/20/2019 06/20/2019 06/20/2019 5:28 AM C DT documented as of this encounter Care Teams Front Desk Supervisor Relationship Specialty Start Date End Date Rigo Alvarenga MD PCP - General 12/02/16 12/15/16 Ag Malcolm MD [address] [place] [address] PCP - General 12/16/16 12/18/16 Rigo Alvarenga MD PCP - General 12/19/16 02/25/17 Ag Malcolm MD [address] [place] [address] PCP - General 02/26/17 03/04/17 Rigo Alvarenga MD PCP - General 03/05/17 03/24/17 Ag Malcolm MD [address] [place] [address] PCP - General 03/30/17 03/30/17 Ag Malcolm MD [address] [place] [address] PCP - General 03/25/17 03/29/17 Rigo Alvarenga MD PCP - General 03/31/17 Malgorzata Edwards, RN [address] [address] Slabbing Machine Operator 07/13/17 Marguerite Moise Slabbing Machine Operator 07/23/17 08/10/17 Tamy Arcos RN [address] [address] Slabbing Machine Operator 08/11/17 Chase Durbin MD [address] [facility] [address] [place] [address] Dive Supervisor Nephrology 03/23/19 11/23/19 Pavithra Tavarez, FLORES [address] [facility] [address] [place] [address] Slabbing Machine Operator 03/30/19 0 Rand Collins RN [address] [facility] [address] [place] [address] Slabbing Machine Operator 05/31/19 Fleipe Foss MD [address] [place] [address] Medical Oncologist/Quick Print Operator Hematology and Oncology 01/04/23 documented as of this encounter
--- OUTSIDE RECORDS SUMMARY | 2024-03-14 15:28 | XMS_ITS | Clinical Summary ---
Author Organization [facility] Address [facility] [place] [address] [place] [address] Care Team Providers Care Rocket Engine Mechanic Name Role Phone Rigo Alvarenga MD Primary Care Provider [phone] Allergies No known active allergies Medications tacrolimus SR (ENVARSUS XR) 1 MG TABLET SR 24 HR 24 hr capsule Take 8 mg by mouth daily. Active predniSONE 5 mg tabletIndications :last day of 15mg, go down to 10mg tomorrow Take 15 mg by mouth daily. Indications: last day of 15mg, go down to 10mg tomorrow Active mycophenolate EC 360 MG tablet Take 360 mg by mouth 2 (two) times daily. Active sulfamethoxazole- trimethoprim 800-160 MG tablet Take 1 tablet by mouth daily. Active aspirin 81 MG chewable tablet Chew 81 mg by mouth daily. Active pantoprazole EC 40 MG tablet Take 40 mg by mouth daily. Active vitamin D3, cholecalciferol, 1000 UNIT Tab tablet Take 2,000 Units by mouth daily. Active atorvastatin 20 MG tablet Take 20 mg by mouth nightly at bedtime. Active tamsulosin 0.4 MG Cap Take 0.4 mg by mouth daily. Active laniGLIPtin 5 MG tablet Take 5 mg by mouth daily. Active insulin glargine 100 UNIT/ML injection (VIAL) Inject 15 Units into the skin nightly at bedtime. Active insulin lispro, 1 Unit Dial, 100 UNIT/ML injection (PEN) Inject 7 Units into the skin 3 (three) times daily. Active calcitriol 0.25 MCG capsule Take 0.25 mcg by mouth 2 (two) times daily. Active Sucroferric Oxyhydroxide (VELPHORO OR) Take 3 tablets by mouth 3 (three) times daily with meals. Active potassium chloride CR 10 MEQ Tab CR tablet Take 20 mEq by mouth daily. Active amLODIPine 5 MG tablet Take 5 mg by mouth daily. Active senna-docusate (SENNA-DOCUSATE SODIUM) 8.6-50 MG tablet Take 1 tablet by mouth daily. Active acetaminophen 500 MG tablet Take 1,000 mg by mouth every 6 (six) hours as needed for Pain. Active Family History Medical History Relation Comments Kidney Disease Cousin Diabetes Mother Hypertension Mother Kidney Disease Mother Diabetes Sister Hypertension Sister Kidney Disease Sister Relation Status Comments Cousin Mother Sister Social History Tobacco Use Types Packs/Day Years Used Date Smoking Tobacco: Never Smokeless Tobacco: Never Alcohol Use Standard Drinks/Week Comments Never 0 (1 standard drink = 0.6 oz pur e alcohol) AUDIT-C Answer Date Recorded Frequency of Alcohol Consumption Never 06/19/2019 Average Number of Drinks Not on file 020 Frequency of Binge Drinking Not on file 05/2019 Sex and Gender Information Value Date Recorded Sex Assigned at Not on file Legal Sex Male 8:09 AM CDT Gender Identity Not on file Sexual Orientation Not on file Last Filed Vital Signs Vital Sign Reading Time Taken Comments Blood Pressure 154/89 06/20/2019 12:30 AM CDT Pulse 94 06/20/2019 12:30 AM CDT Temperature 36.9 ??C (98.4 ??F) 06/19/2019 9:30 PM CD T Respiratory Rate 23 06/20/2019 12:15 AM CDT Oxygen Saturation 99% 06/20/2019 12:30 AM CDT Inhaled Oxygen Concentration - - Weight 84 kg (185 lb 4 oz) 06/19/2019 4:37 PM CD T Height 170.2 cm (5' 7 ) 06/19/2019 4:37 PM CDT Body Mass Index 29.01 06/19/2019 4:37 PM CDT Plan of Treatment Health Maintenance Due Date Last Done Comments Colorectal Cancer Screening Colonoscopy (10 Years) 1961 Annual Physical 1964 COVID-19 Vaccine (#1) 1966 Pneumococcal Vaccine: Pediatrics (0 to 5 Years) and At-Risk Patients (6 to 64 Years) (1 of 2 - PCV) 08/14/1967 Hepatitis C 08/14/1979 DTaP, Tdap and Td Vaccines (1 - Tdap) 1980 Zoster Vaccines (1 of 2) 1980 RSV Immunization or 60+ Years (1 - Risk 60-74 years 1-dose series) 2021 Influenza Adult (#1) 2023 12/05/2015, 11/15/2014, 12/30/2013, Additional history exists Meningococcal B Vaccine Aged Out No l onger eligible based on patient's age to complete this topic Meningococcal Vaccine Aged Out No francy madai eligible based on patient's age to complete this topic RSV Immunizations Under 20 Months Aged Out No longer eligible based on patient's age to complete this topic Insurance MEDICAID MEDICARE MEDICARE [place] [address] [address] [address] BLUE [facility] Care Teams Rocket Engine Mechanic Relationship Specialty Start Date End Date Rigo Alvarenga MD [address] [place] [address] PCP - General INTERNAL MEDICINE 06/19/19
--- OUTSIDE RECORDS SUMMARY | 2024-03-14 15:28 | XMS_ITS | Encounter Summary ---
Author Organization [facility] Address [address] [place] [address] Phone Care Team Providers Care Clinical Data Management Manager Name Role Phone Rigo Alvarenga MD Primary Care Provider [phone] Malgorzata Edwards RN Unavailable [phone] Marguerite Carson Unavailable Unavail able Tamy Arcos RN Unavailable [phone] Chase Durbin MD Unavailable [phone] Pavithra Tavarez RN Unavailable Rand Collins RN Unavailable [phone] Felipe Foss MD Unavailable [phone] Encounter Details Date Type Department Care Team (Latest Contact Info) Description 04/01/2017 Orders Only [facility] CONVERSION Scanning, Provider Social History Tobacco Use Types Packs/Day Years Used Date Smoking Tobacco: Never Sex and Gender Information Value Date Recorded Sex Assigned at Not on file 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 06/20/2019 Cora Chowdaryisaac 06/20/2019 06/20/2019 06/20/2019 5:28 AM C DT documented as of this encounter Care Teams Clinical Data Management Manager Relationship Specialty Start Date End Date Rigo Alvarenga MD PCP - General 03/31/17 Malgorzata Edwards RN [address] [address] Child Care Nurse 07/13/17 8 Marguerite Carson Child Care Nurse 07/23/17 08/10/17 Tamy Arcos RN [address] [address] Child Care Nurse 08/11/17 Chase Durbin MD [address] [facility] [address] [place] [address] Patient Accounting Representative Nephrology 03/23/19 11/23/19 Pavithra Tavarez RN [address] [address] Child Care Nurse 03/30/19 0 Rand Collins RN [address] [address] Child Care Nurse 05/31/19 Felipe Foss MD [address] [place] [address] Medical Oncologist/Solder Making Laborer Hematology and Oncology 01/04/23 documented as of this encounter
--- OUTSIDE RECORDS SUMMARY | 2024-03-14 15:28 | XMS_ITS ---
Author Organization [facility] Address [address] [place], [place] [id number] Care Team Providers Care Hotel Desk Clerk Name Role Phone MELA VENTURA Unavailable [phone] Rigo Alvarenga Unavailable Unavailable ALVIN JUNIOR Unavailable [phone] Allergies Allergen (clinical drug ingredient) Drug/Non Drug Allergy documented on EMR Reaction Allergy Type Onset Date Status codeine Codeine Unknown Drug Allergy Active duloxetine Duloxetine Unknown Drug Allergy Activ e lisinopril Lisinopril Unknown Drug Allergy Activ e prednisone Prednisone Unknown Drug Allergy Activ e REASON FOR VISIT Athletes foot check Medications Medication SIG (Take, Route, Frequency, Duration) Notes Start Date End Date Status Clotrimazole-Betamethasone 1-0.05 % 1 application Externally Twice a day 09/09/2023 Active Vitamin D3 Active Vitamin B12 Active Vitamin B1 Active Vitamin B6 Active Tart Mcadams Active Allopurinol Active Aspirin 81 Active Atorvastatin Calcium Active Fexofenadine HCl Act antwon Revlimid Active Gabapentin Active Envarsus XR Active Montelukast Sodium A ctive Losartan Potassium A ctive Bumetanide Active Jardiance Active Stool Softener Activ e dexAMETHasone Active Pantoprazole Sodium Active NovoLOG FlexPen Acti ve Basaglar KwikPen Act antwon Mounjaro Active Encounters Encounter Location Date Provider Diagnosis [address] [id number] 10/07/2023 ALVIN DAVYDOV Unspecified atherosclerosis of [place] arteries of extremities, bilateral legs I70.203 and Tinea pedis B35.3 Assessments Encounter Date Diagnosis (ICD Code) Assessment Notes Treatment Notes Treatment Clinical Notes Section Notes 10/07/2023 Unspecified atherosclerosis of [place] arteries of extremities, bilateral legs (ICD-10 - I70.203) Patient educated on risks and aggravating factors of PVD, including conservative treatment options such as a diet and exercise regimen to aid in slowing progression of vascular disease 10/07/2023 Tinea pedis (ICD-10 - B35.3) The patient was educated why and how the fungal infection evolved in their feet and the patient was given information regarding how to prevent further infection. The patient was told to keep feet dry and change socks. The patient was told to be careful with old shoes and excessive sweating. The patient was educated regarding both OTC and prescription treatments. Continue with use of lotrisone cream. Plan Of Treatment Treatment Notes Assessment Notes Unspecified atherosclerosis of [place] arteries of extremities, bilateral legs Patient educated on risks and aggravating factors of PVD, including conservative treatment options such as a diet and exercise regimen to aid in slowing progression of vascular disease Tinea pedis The patient was educ ated why and how the fungal infection evolved in their feet and the patient was given information regarding how to prevent further infection. The patient was told to keep feet dry and change socks. The patient was told to be careful with old shoes and excessive sweating. The patient was educated regarding both OTC and prescription treatments. Continue with use of lotrisone cream. Next Appt Details Follow Up: 3 Months, Reason: Progress Notes * HUSSAIN SARGENTDOB:1960 (63 yo M)Acc No.[id number]:10/07/2023 Patient:?ROSETTA, HUSSAIN Provider:?ALVIN JUNIOR :1960???Age:63 Y???Sex:Male Alexis e:10/07/2023 Address:[address] [place], [place] [id number] Subjective: * Chief Complaints: * ???1. Athletes foot check. * HPI: ???HPI:?Follow Up Visit?Patient presents for follow-up visit for athletes foot. Patient states that the cream given to him helped with the spots on his feet. Patient states that the right third toenail is sticking up and bothering him. , MA: mca.? * ROS:?General / Constitutional:?Patient denies?weakness.?Respiratory:?Patient denies?chronic cough, shortness of breath, sputum production.?Cardiovascular:?Patient denies?chest pain, history of [place], irregular heartbeat.?Musculoskeletal:?Patient denies?arthritis, joint stiffness.?Peripheral Vascular:?Patient denies?blanching of skin, cold extremities, decreased sensation in extremities.?Skin:?Patient complains of?fungal nails, nail changes.?Neurologic:?Patient denies?dizziness, gait abnormality, headache.? * Medical History:? * Medications:?Taking Mounjaro , Taking Basaglar KwikPen , Taking NovoLOG FlexPen , Taking Pantoprazole Sodium , Taking dexAMETHasone , Taking Stool Softener , Taking Jardiance , Taking Bumetanide , Taking Losartan Potassium , Taking Montelukast Sodium , Taking Envarsus XR , Taking Gabapentin , Taking Revlimid , Taking Fexofenadine HCl , Taking Atorvastatin Calcium , Taking Aspirin 81 , Taking Allopurinol , Taking Tart Mcadams , Taking Vitamin B6 , Taking Vitamin B1 , Taking Vitamin B12 , Taking Vitamin D3 , Taking Clotrimazole-Betamethasone 1-0.05 % Cream 1 application Externally Twice a day * Allergies:?Duloxetine, Predn isone, Lisinopril, Codeine. Objective: * Examination: ???Physical Examination: ???Vascular: Dorsalis Pedis pulse noted at 1/4 right foot and 1/4 left foot and Posterior Tibial pulse noted at 1/4 right foot and 1/4 left foot, Capillary refill times noted to be less than three seconds x ten, Temperature gradient noted to be warm to cool to bilateral foot, pedal hair present to bilateral foot and no varicosities are noted ?Dermatologic: there are no open lesions, no signs of active clinical infection, no erythema noted, no ecchymoses, nails are at hygienic length x ten, diffuse plantar xerosis with annular scaling noted to bilateral foot with no signs of annular scaling noted ?Musculoskeletal: there is pain to palpation onto nail plate x ten, no calf pain noted bilaterally, arch height noted at 2/5 non-weight bearing bilaterally, first metatarsophalangeal joint range of motion 30 deg non-weight bearing bilaterally ?Neurology: protective sensation intact to light touch bilateral digits one through five, vibratory sensation intact to first metatarsophalangeal joint bilaterally. Assessment: * Assessment: 1.?Tinea pedis - B35.3 (Prim shirley)?2.?Unspecified atherosclerosis of [place] arteries of extremities, bilateral legs - I70.203? Plan: * Treatment: 2.?Unspecified atheroscleros is of [place] arteries of extremities, bilateral legs? Notes: Patient educated on risks and aggravating factors of PVD, including conservative treatment options such as a diet and exercise regimen to aid in slowing progression of vascular disease ?? * Follow Up:?3 Months * Billing Information: * Visit Code:? 74579 Office Visit, Est Pt., Level 3. * Procedure Codes:? * Sign off status: Completed true * Provider:YARITZA JUNIOR Date:?10/07/2023 Generated for Bibiana felder/Dulce/Guillermo on:?03/14/2024 03:28 PM GRIZZLY WORKER History and Physical Notes * HPI (History of Present Illness) Category Sub-Category Detail Notes Category Not es HPI Follow Up Visit Patient presents for follow-up visit for athletes foot. Patient states that the cream given to him helped with the spots on his feet. Patient states that the right third toenail is sticking up and bothering him. , MA: mca Examination Category Sub-Category Detail Notes Category Not es Physical Examination Vascular: Dorsalis Pedis pulse noted at 1/4 right foot and 1/4 left foot and Posterior Tibial pulse noted at 1/4 right foot and 1/4 left foot, Capillary refill times noted to be less than three seconds x ten, Temperature gradient noted to be warm to cool to bilateral foot, pedal hair present to bilateral foot and no varicosities are noted Dermatologic: there are no open lesions, no signs of active clinical infection, no erythema noted, no ecchymoses, nails are at hygienic length x ten, diffuse plantar xerosis with annular scaling noted to bilateral foot with no signs of annular scaling noted Musculoskeletal: there is pain to palpation onto nail plate x ten, no calf pain noted bilaterally, arch height noted at 2/5 non-weight bearing bilaterally, first metatarsophalangeal joint range of motion 30 deg non-weight bearing bilaterally Neurology: protective sensation intact to light touch bilateral digits one through five, vibratory sensation intact to first metatarsophalangeal joint bilaterally
--- OUTSIDE RECORDS SUMMARY | 2024-03-14 15:29 | XMS_ITS | Patient Health Record ---
Author Organization [facility] Address [address] [place], [place] [id number] Care Team Providers Care Pumper Gager Apprentice Name Role Phone MELA VENTURA Unavailable [phone] Rigo Alvarenga Unavailable Unavailable ALVIN JUNIOR Unavailable [phone] Allergies Allergen (clinical drug ingredient) Drug/Non Drug Allergy documented on EMR Reaction Allergy Type Onset Date Status codeine Codeine Unknown Drug Allergy Active duloxetine Duloxetine Unknown Drug Allergy Activ e lisinopril Lisinopril Unknown Drug Allergy Activ e prednisone Prednisone Unknown Drug Allergy Activ e Reason For Referral No Information Medications Medication SIG (Take, Route, Frequency, Duration) Notes Start Date End Date Status Bumetanide Active Jardiance Active Tart Mcadams Active Stool Softener Activ e Allopurinol Active dexAMETHasone Active Aspirin 81 Active Pantoprazole Sodium Active Atorvastatin Calcium Active NovoLOG FlexPen Acti ve Fexofenadine HCl Act antwon Basaglar KwikPen Act antwon Revlimid Active Mounjaro Active Gabapentin Active Clotrimazole-Betamethasone 1-0.05 % 1 application Externally Twice a day 09/09/2023 Active Envarsus XR Active Vitamin D3 Active Montelukast Sodium A ctive Vitamin B12 Active Losartan Potassium A ctive Vitamin B1 Active Vitamin B6 Active Vital Signs Height-cm 170.18 cm 09/09/2023 Height 67.00 in 09/09/2023 Encounters Encounter Location Date Provider Diagnosis [facility] [place] [address], [place] [id number] 09/09/2023 ALVIN BABCOCKANA Unspecified atherosclerosis of [place] arteries of extremities, bilateral legs I70.203 ; Tinea pedis B35.3 ; Tinea unguium B35.1 ; Pain in right toe(s) M79.674 and Pain in left toe(s) M79.[address] [id number] 10/07/2023 ALVIN VERNON Unspecified atherosclerosis of [place] arteries of extremities, bilateral legs I70.203 and Tinea pedis B35.3 Assessments Encounter Date Diagnosis (ICD Code) Assessment Notes Treatment Notes Treatment Clinical Notes Section Notes 09/09/2023 Tinea pedis (ICD-10 - B35.3) The patient [...] educated regarding both OTC and prescription treatments. 09/09/2023 Unspecified atherosclerosis of [place] arteries of extremities, bilateral legs (ICD-10 - [...] treatments. Continue with use of lotrisone cream. 10/07/2023 Unspecified atherosclerosis of [place] arteries of extremities, bilateral legs (ICD-10 - I70.203) Patient educated on risks and aggravating factors of PVD, including conservative treatment options such as a diet and exercise regimen to aid in slowing progression of vascular disease 09/09/2023 Tinea unguium (ICD-10 - B35.1) Aseptic debridement of elongated thickened nails x 10 using sterile nippers, nails were debrided in length and thickness by 30% utilizing a nail nipper without incident. The patient was educated regarding all treatment options that include topical and oral antifungal treatments. I discussed the options of taking a sample of the nail to confirm diagnosis. Nail clippings were not sent for pathology analysis. The patient was educated why and how the fungal infection evolved in their feet and the patient was given information regarding how to prevent further infection. The patient was told to keep feet dry and change socks. The patient was told to be careful with old shoes and excessive sweating. The patient was educated regarding both OTC and prescription treatments. 09/09/2023 Pain in right toe(s) (ICD-10 - M79.674) 09/09/2023 Pain in left toe(s) (ICD-10 - M79.675) Plan Of Treatment No Information Insurance Providers Payer Name Payer Address Payer Phone Subscriber Number Group Number Insured Name Patient Relationship to Insured Coverage Start Date Coverage End Date [employer] [address] [place] [phone] [id number] HUSSAIN SARGENT Self - patient is the insured Medical (General) History Medical History History ICD Code acid reflux neuropathy skin cancer angina Radiation therapy Epilepsy high blood pressure
--- OUTSIDE RECORDS SUMMARY | 2024-03-14 15:29 | XMS_ITS | Encounter Summary ---
Author Organization [facility] Address [address] [place] [address] Care Team Providers Care Sole Polisher Name Role Phone Rigo Alvarenga MD Primary Care Provider [phone] Rand Collisn RN Unavailable [phone] Felipe Foss MD Unavailable [phone] Encounter Details Date Type Department Care Team (Late st Contact Info) Description 12/04/[address] [facility] [address] [facility] [address] [place] [address] Rigo Alvarenga MD [address] [place] [address] Social History Tobacco Use Types Packs/Day Years Used Date Smoking Tobacco: Never Smokeless Tobacco: Never Alcohol Use Standard Drinks/Week Comments No 0 (1 standard drink = 0.6 oz pur e alcohol) Social Connection and Isolat ion Panel [NHANES] Answer Date Recorded In a typical week, how many times do you talk on the phone with family, friends, or neighbors? More than three times a week 09/29/2022 How often do you get togethe r with friends or relatives? More than three times a week 09/29/2022 How often do you attend chur or christian services? More than 4 times per year 09/29/2022 Do you belong to any clubs o r organizations such as episcopal groups, unions, fraternal or athletic groups, or school groups? Yes 09/29/2022 How often do you attend meet ings of the clubs or organizations you belong to? More than 4 times per year 09/29/2022 Are you , , di vorced, , never , or living with a partner? 09/29/2022 AUDIT-C Answer Date Recorded Q1: How often do you have a drink containing alcohol? Never 05/04/2022 Q2: How many drinks containi ng alcohol do you have on a typical day when you are drinking? Patient does not drink Q3: How often do you have si x or more drinks on one occasion? Never 05/04/2022 Overall Financial Resource Strain (CARDIA) Answe r Date Recorded How hard is it for you to pa y for the very basics like food, housing, medical care, and heating? Not hard at all 09/29/2022 PHQ-2 Answer Date Recorded PHQ-2 Total Score (If total score is 3 or more points, staff should administer the PHQ-9) 0 09/29/2022 Hunger Vital Sign Answer Date Recorded Within the past 12 months, y ou worried that your food would run out before you got the money to buy more. Never true 09/30/19 23 Within the past 12 months, t he food you bought just didn't last and you didn't have money to get more. Never true 09/29/2022 PRAPARE - Transportation Answer Date Re corded In the past 12 months, has l ack of transportation kept you from medical appointments or from getting medications? No 09/15 In the past 12 months, has l ack of transportation kept you from meetings, work, or from getting things needed for daily living? No 09/29/2022 Housing Stability Vital Sign Answer Alexis e Recorded In the last 12 months, was t here a time when you were not able to pay the mortgage or rent on time? No 09/29/2022 In the last 12 months, how many places have you lived? 1 09/29/2022 In the last 12 months, was t here a time when you did not have a steady place to sleep or slept in a longterm (including now)? 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 Gender Identity Not on file Sexual Orientation Not on file documented as of this encounter Plan of Treatment Not on file documented as of this encounter Visit Diagnoses Not on filedocumented in this encounter Care Teams Sole Polisher Relationship Specialty Start Date End Date Rigo Alvarenga MD PCP - General 03/31/17 Rand Collins, FLORES [address] [facility] [address] [place] [address] Diamond Sizer And Sorter 05/31/19 Felipe Foss MD [address] [place] [address] Medical Oncologist/Drawing Press Operator Hematology and Oncology 01/04/23 documented as of this encounter
--- OUTSIDE RECORDS SUMMARY | 2024-03-14 15:29 | XMS_ITS | Encounter Summary ---
Author Organization [facility] Address [address] [place] [address]. [place] [address] [place] [address] Care Team Providers Care International Manager Name Role Phone Rigo Alvarenga MD Primary Care Provider Encounter Details Date Type Department Care Team (Late st Contact Info) Description 07/23/2018 Abstract [facility] CONVERSION [address] [place] [address] , Generic ConversionMD Social History Tobacco Use Types Packs/Day Years Used Date Smoking Tobacco: Never Assessed Sex and Gender Information Value Date Recorded Sex Assigned at Not on file Legal Sex Male 8:09 AM CDT Gender Identity Not on file Sexual Orientation Not on file documented as of this encounter Plan of Treatment Not on file documented as of this encounter Visit Diagnoses Not on filedocumented in this encounter Care Teams International Manager Relationship Specialty Start Date End Date Rigo Alvarenga MD [address] [place] [address] PCP - General INTERNAL MEDICINE 06/19/19 documented as of this encounter
--- OUTSIDE RECORDS SUMMARY | 2024-03-14 15:29 | XMS_ITS | Referral Summary ---
Author Organization [facility] Address [address] [place] [address] Care Team Providers Care Microbiological Laboratory Technician Name Role Phone Rigo Alvarenga MD Primary Care Provider [phone] Rand Collins RN Unavailable [phone] Felipe Foss MD Unavailable [phone] Encounters Date Type Department Care Team Description 03/01/2024 Telephone [facility] Endocrinology Metabolism and Lipid [address] [facility] Advanced Medicine 13th [place] [address] [place] [phone] Isis Harper, slabber results high triglycerides 02/29/2024 Lab [facility] Transplant Kidney [address] [facility] [address] [phone] [place] [address] Arturo Garcia MD 02/18/2024 Telephone [facility] Endocrinology Metabolism and Lipid [address] [facility] Advanced Medicine 13th [place] [address] [place] [phone] Isis Harper, RN titrate mounjaro from 7.5 mg to 10 mg 01/26/2024 Lab [facility] Transplant Kidney [address] [facility] [address] [phone] [place] [address] Arturo Garcia MD 01/25/2024 Lab [facility] Transplant Kidney [address] [facility] [address] [phone] [place] [address] Arturo Garcia MD 01/11/2024 Orders Only [facility] Endocrinology Metabolism and Lipid [address] [facility] Medicine 13th [place] [address] [place] [address] Holly Cordon NP 01/11/2024 Telephone [facility] Endocrinology Metabolism and Lipid [address] [facility] 13th [place] [address] [place] [address] Dagmar Kearns RMA New Rx Request 01/07/2024 Telephone [facility] Transplant Kidney [address] [facility] [address] Mail[address] [phone] [place] [address] Rand Collins RN 01/06/2024 9:30 AM EXTENSION SUPERVISOR Telemedicine [facility] Hematology [address] [facility] Floor 6 [place] [phone] Felipe Foss MD Multiple myeloma not having achieved remission (CMS/HCC) (HCC) 01/06/2024 1:15 PM EXTENSION SUPERVISOR Office Visit [facility] Cardiology [address] [facility] 8th [place] [address] [place] [phone] Flaquito Yu MD Chronic diastolic heart failure (HCC) (Primary Dx); Secondary hypertension; Dyslipidemia 12/31/2023 Lab [facility] Transplant Kidney [address] [facility] [address] [place] [address] Arturo Garcia MD 12/28/2023 Telephone [facility] Endocrinology Metabolism and Lipid [address] [facility] [address] [place] [address] Jigna Laguna, FLORES LOST MISSY 3 12/28/2023 Lab [facility] Transplant Kidney [address] [facility] [address] Mailstop [phone] [place] [address] Arturo Garcia MD 12/28/2023 Lab [facility] Transplant Kidney [address] [facility] [phone] [place] [phone] Arturo Garcia MD 12/20/2023 Orders Only [facility] Pulmonary [address] [facility] 8th Floor [address] [place] [phone] Suhail Monet NP 12/17/2023 Telephone [facility] Endocrinology Metabolism and Lipid [address] [facility] 13th Floor [address] [place] [phone] Jigna Laguna RN mounjaro 12/15/2023 10:30 AM CDT Lab [facility] [address] [facility] Floor 6 [place] [address] Multiple myeloma not having achieved remission (CMS/HCC) (HCC) 12/15/2023 10:15 AM CDT Lab [facility] Oncology Lab [facility] Floor 6 [place] [address] 12/15/2023 11:15 AM CDT Office Visit [facility] Hematology [facility] [address] [phone] Felipe Foss MD Multiple myeloma not having achieved remission (CMS/HCC) (HCC) (Primary Dx); Peripheral polyneuropathy (CMS/HCC) 12/15/2023 9:00 AM CDT Office Visit [facility] Endocrinology Metabolism and Lipid [facility] [place] [address] [place] [address] [place] [address] Holly Cordon NP Type 2 diabetes mellitus with hyperglycemia, with long-term current use of insulin (HCC) (Primary Dx); Obesity with body mass index 30 or greater; Dyslipidemia 12/13/2023 Telephone [facility] Cardiology [address] [facility] 8th [place] [address] [place] [address] Suhail Monet NP from Last 3 Months Allergies Active Allergy Reactions Criticality Noted Date Comments Codeine Cough Low 11/20/2015 Duloxetine Diarrhea,Hallucinations High 10/26/2012 Prednisone Rash,Other (See comments) Medium 05/16/2010 Acne-like pimples, all over ?? At high doses. 06/20/19: ??Approved to give Prednisone per Dr. Elinor Villaseñor ([place] Garcia, [place]) Medications sour alvarez extract (TART ALVAREZ EXTRACT ORAL)Indication s:Gout,gout Take 1,200 mg by mouth every morning Active blood glucose strip-disp meter kit Use as directed. 1 kit 05/17/19 22 Active Additional Information Patient taking differently: 1 each, Use as directed. (3 times daily before meals and at bedtime as needed), Indications: type 2 diabetes mellitus, Informant: Self, Reported on 01/06/2024 blood-glucose meter (OneTouch Verio Meter) miscIndications :Type 2 diabetes mellitus with other specified complication, unspecified whether food safety officer insulin use (HCC) Use to check blood sugar 4 times per day 1 each 06/12/19 22 Active Additional Information Patient taking differently: 1 each, Use to check blood sugar Use as directed. (3 times daily before meals and at bedtime as needed), Indications: type 2 diabetes mellitus, Informant: Self, Reported on 01/06/2024 cyanocobalamin, vitamin B-12, (VITAMIN B-12 ORAL)Indication s:Prevention of Vitamin B12 Deficiency Take 1,000 mcg by mouth every morning Active atorvastatin (LIPITOR) 20 mg tablet TAKE 1 TABLET BY MOUTH EVERY DAY AT NIGHT 90 tablet 3 08/13/19 23 Active flash glucose scanning reader miscIndications :Type 2 diabetes mellitus with other specified complication, unspecified whether [facility] insulin use (HCC) Use to read missy 3 sensor 1 each 01/01/20 23 Active Additional Information Patient taking differently: Use to read missy 3 sensor - still has it on but it has not been accurate lately so is also sticking himself and using blood glucose meter. States intention to call To see if he still has to do both. , Indications: type 2 diabetes mellitus, Informant: Self, Reported on 01/06/2024 cholecalciferol (VITAMIN D-3) 2000 unit tabletIndicatio ns:Prevention of Vitamin D Deficiency Take 0.5 tablets (1,000 Units total) by mouth every morning Active FreeStyle Missy 3 Sugar Tree misc as directed Sugars have been way off with sensor so is also sticking himself (using blood glucose meter) 12/26/[address] (PROTONIX) 40 mg EC tablet Take 1 tablet (40 mg total) by mouth every morning 01/16/20 23 Active cyclobenzaprine (FLEXERIL) 10 mg tabletIndicatio ns:Muscle Spasm Take 1 tablet (10 mg total) by mouth as needed for muscle spasms 03/04/19 24 Active acetaminophen (TYLENOL) 500 mg tablet Take 1 tablet (500 mg total) by mouth every 6 (six) hours 90 tablet 03/26/19 24 Active aspirin 81 mg enteric coated tabletIndicatio ns:Kidney replaced by transplant TAKE 1 TABLET BY MOUTH EVERY DAY 90 tablet 3 04/19/19 24 Active bumetanide (BUMEX) 1 mg tablet Take 1 tablet (1 mg total) by mouth 2 (two) times a day 180 tablet 3 05/18/19 24 Active insulin glargine (BASAGLAR) 100 unit/mL (3 mL) pen for injectionIndica tions:Type 2 diabetes mellitus with other specified complication ([facility]) INJECT 14 UNITS UNDER THE SKIN AT BEDTIME 15 mL 05/24/19 24 Active glucagon (Gvoke HypoPen 2-Pack) 1 mg/0.2 mL auto-injectorIn dications:Type 2 diabetes mellitus with other specified complication, unspecified whether [facility] insulin use ([facility]) Inject 1 mg under the skin as needed (as needed for severe hypoglycemia) 0.4 mL 6 06/07/19 24 Active montelukast (SINGULAIR) 10 mg tablet 06/10/19 24 Active OneTouch Verio test strips stripIndication s:Type 2 diabetes mellitus with other specified complication, unspecified whether [facility] insulin use ([facility]) CHECK BLOOD SUGAR 3 TIMES A DAY 100 strip 11 06/17/19 24 Active allopurinoL (ZYLOPRIM) 100 mg tablet Take 1 tablet (100 mg total) by mouth daily 30 tablet 11 06/24/19 24 Active pyridoxine (VITAMIN B-6) 100 mg tablet Take 1 tablet (100 mg total) by mouth daily Active acyclovir (ZOVIRAX) 400 mg tabletIndicatio ns:Multiple myeloma not having achieved remission (CMS/HCC) ([facility]) Take 1 tablet (400 mg total) by mouth 2 (two) times a day For shingles prevention. 60 tablet 3 08/31/19 24 Active lancets (OneTouch Delica Plus Lancet) 30 gauge miscIndications :Type 2 diabetes mellitus with other specified complication, unspecified whether food safety officer insulin use (HCC) USE TO CHECK BLOOD SUGAR 3 TIMES PER DAY 100 each 09/08/19 24 Active gabapentin (NEURONTIN) 300 mg capsuleIndicati ons:Neuropathic Pain Take 1 capsule (300 mg total) by mouth 2 (two) times a day 60 capsule 11 12/15/19 24 Active carvediloL (COREG) 3.125 mg tablet Take 1 tablet (3.125 mg total) by mouth 2 (two) times a day with meals 60 tablet 11 12/20/19 24 2024 Active FreeStyle Missy 3 Sensor deviceIndicatio ns:Type 2 diabetes mellitus with other specified complication, unspecified whether food safety officer insulin use (HCC) Use to check blood sugar before meals and at bed time and as needed 2 each 12/21/19 24 Active predniSONE (DELTASONE) 5 mg tablet TAKE 1 TABLET (5 MG) BY MOUTH DAILY DX CODE Z94.0 90 tablet 3 12/22/19 24 Active losartan (COZAAR) 50 mg tablet Take 2 tablets (100 mg total) by mouth daily 90 tablet 3 01/05/20 24 Active tacrolimus XR (ENVARSUS XR) 0.75 mg tablet extended release 24 hrIndications:P revention of Kidney Transplant Rejection Take 2 tablets (1.5 mg total) by mouth daily 180 tablet 3 01/07/20 24 Active tamsulosin (FLOMAX) 0.4 mg extended release capsuleIndicati ons:Kidney replaced by transplant TAKE 1 CAPSULE BY MOUTH TWICE A DAY 180 capsule 1 01/20/20 24 Active Jardiance 10 mg tabletIndicatio ns:Type 2 diabetes mellitus with other specified complication, unspecified whether [facility] insulin use (HCC) TAKE 1 TABLET BY MOUTH EVERY DAY 90 tablet 3 02/14/20 24 Active tirzepatide (Mounjaro) 7.5 mg/0.5 mL pen injectorIndicat ions:type 2 diabetes mellitus Inject 7.5 mg under the skin once a week 2 mL 11 02/17/19 25 Active empagliflozin (JARDIANCE) 10 mg tabletIndicatio ns:Type 2 diabetes mellitus with other specified complication, unspecified whether [facility] insulin use (HCC) Take 1 tablet (10 mg total) by mouth daily 30 tablet 11 06/02/19 24 2023 Discontinued tirzepatide (Mounjaro) 7.5 mg/0.5 mL pen injector Inject 7.5 mg under the skin once a week 2 mL 01/27/20 24 2024 Discontinued(A lternate therapy) Active Problems Patient Care Coordination No te Formatting of this note migh t be different from the original. Per Dr. Limon, GEORGE goal 2-4 d/t receiving treatment for MM on Envarsus 1mg Discharge Preferences: Lab: [facility] , [phone] standing orders q Monthly, FK,UPE, q3 HgbA1C Exp. 03/30/24 Home Health: [facility] /[phone] Local Pharmacy: [facility] in [place] [facility]: [facility] Problem Noted Date Diagnosed Date Peripheral polyneuropathy 10/21/2023 Weakness 03/17/2023 NSTEMI (non-ST elevated myocardial infarction) ( CMS/HCC) 02/12/2023 Multiple myeloma not having achieved remission ( CMS/HCC) 01/06/2023 Infiltrative cardiomyopathy 10/30/2022 Assessment & Plan (10/30/2022 2:35 PM CDT): Recent hospital admission for volume overload. Work up noted SPEP with IgA lambda paraprotein. CMR pursued and showed evidence of infiltrative cardiomyopathy. 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 Currently pending evaluation with hematology. Will follow along with hematology's work up for systemic amyloidosis. Will assist with HFpEF management as stated above. NT ProBNP and Troponin at next cardiology follow up. Discussed plan with attending order desk caller. HEATHER on CPAP 09/25/2022 Assessment & Plan (09/25/2022 9:11 PM CDT): Adherent to home PAP therapy PLAN: -Continue home NPPV at current settings Acute renal failure superimp osed on chronic kidney disease, unspecified CKD stage, unspecified acute renal failure type 09/24/2022 Pulmonary hypertension 08/24/2022 Assessment & Plan (09/25/2022 8:58 PM CDT): 62 y.o. male PMH ESRD d/t FSGS s/p renal txp x2 (07/2010, 05/2019) and now CARLOS (04/2022 ) with progressive CKD, RA (on pred only), pHTN (dx June 2022), IDDM, HFpEF, HTN, HLD, gout admitted 09/24/2022 for volume overload and LAYO on CKD in s/o transplanted kidney with concern for rejection, possible RH failure, and newly found sclerotic lesions c/f metastasis. -TTE 06/2022 EF >70%, diastolic dysfunction, RV normal, PASP 51 -RHC 08/2022 with mod pHTN with 49/20 mean 28, wedge 13, PVR 2 bell, TPG 15 -HIV neg, TFT nl, RF+, CCP neg ASSESSMENT: Patient with recent RHC 08/2022 showing mPAP 28, PWCP 13, PVR 2, TPG 15 consistent with pre/post capillary hypertension; however, here with volume overload in the setting of worsening renal function. Stranding on CT around kidneys concerning for rejection and new sclerotic bone lesions. Suspect existing PHTN 2/2 group 2 (HFpEF) and group V (ESRD) causes. Given normal RV on TTE 06/2022 low suspicion for RHF as cause of volume overload. Even if a component of group I (2/2 known RA, ?lupus) is present, patient would not be a good candidate for primary therapies at this time until volume status optimized and sclerotic bone lesions further evaluated. PLAN: -Continue to optimize volume status -Obtain lower extremity duplex to rule out DVT -Agree with repeat TTE as ordered by primary team -Would defer additional workup for PHTN to later in admission or outpatient setting following optimization of renal and volume status and workup of new bone lesions (CTPE v V/Q, PFTS, 6MWT, serologies) -Follow pending autoimmune labs (KEN negative, ANCA, LILIBETH, MMP pending) -Obtain chest imaging if able WHO group 2 pulmonary arterial hypertension 08/2022 Assessment & Plan (10/30/2022 10:26 AM CDT): WHO Group 2 pulmonary hypertension. RHC on 09/10/22 with moderate pulmonary HTN, pulmonary artery pressure of 49/20 mmHg and PAWP 13 mmHg. No complaint of shortness of breath today. Continue current diuretic management. Assessment & Plan (08/24/2022 9:23 AM CDT): Echo evidence of pulmonary hypertenstion, likely group 2, with elevated NT ProBNP. He is now status post oral diuretics that have been transitioned to PRN due to increase in Cr/BUN and concern for dehydration. Labs from 08/20/22 noted Cr to continue to be above baseline at 2.4, downtrend ing BUN and resolved hyponatremia. Symptomatically he reports resolution in his edema but is still experiencing significant fatigue and ANDRADE. Does not appear to be overtly volume up on examination today. Recheck NT ProBNP to help guide diuresis and further testing for ANDRADE and fatigue. CBC and TSH for fatigue complaints. Continue compliance with CPAP. ADDENDUM: Labs noted Cr to be unchanged but above his baseline. NT ProBNP 2k from 1K. Discussed case further with Dr. Yu. Will proceed with [facility] to better assess volume status and pulmonary hypertension to assist with diuretic management and treatment. Lab results and plan were discussed with patient and he was agreeable. Other fatigue 08/21/2022 Diastolic heart failure 07/17/2022 Assessment & Plan (08/26/2023 10:01 PM CDT): Diastolic heart failure with concern for infiltrative cardiomyopathy. Has since underwent an endomyocardial biopsy that was negative for amyloid. He is euvolemic upon examination today. Continue Bumex 1 mg BID. Can take an additional 1 mg for a weight gain of 3 lbs in 24 hours or 5 lbs in a week. Continue Jardiance. Assessment & Plan (06/11/2023 9:51 PM CDT): Diastolic heart failure with concern for infiltrative cardiomyopathy. Has since underwent an endomyocardial biopsy that was negative for amyloid. He has some mild bi-lateral lower extremity swelling today upon examination but denies any other symptoms. Continue Bumex 1 mg BID. Can take an additional 1 mg for a weight gain of 3 lbs in 24 hours or 5 lbs in a week. Continue Farxiga. Will discuss with Dr. Yu regarding any further work up at this time. Assessment & Plan (10/30/2022 2:33 PM CDT): Diastolic heart failure in setting of infiltrative cardiomyopathy. TTE from 09/29/22 noted preserved EF and Grade I DD. CMR on 10/02/22 with evidence of infiltrative CMP. SPEP with IgA lambda paraprotein. Pending hematology follow up for evaluation of systemic amyloidosis. Has bilateral lower extremity edema and weight is increased by 6 lbs since hospital discharge. Abdomen distended. Diuretics adjusted by nephrology on 10/28/22 and planned paracentesis today. Agree with up-titration of diuresis with close follow up on volume status and kidney function. Currently on Bumex 2 mg PO BID and metolazone 2.5 mg daily. Paracentesis today. Continue good blood pressure and heart rate control. Will follow along with volume status closely. Appreciate nephrology's assistance in light of CKD and hx of renal transplant. Assessment & Plan (08/21/2022 1:02 PM CDT): Chronic diastolic heart failure with pulmonary hypertension appreciated on TTE from June of 2022 at outside facility. Elevated NT ProBNP. He is now status post oral diuretics that have been transitioned to PRN due to increase in Cr/BUN and concern for dehydration. Labs from 08/20/22 noted Cr to continue to be above baseline at 2.4, down trending BUN and resolved hyponatremia. Symptomatically he reports resolution in his edema but is still experiencing significant fatigue and ANDRADE. Does not appear to be overtly volume up on examination today. Repeat NT ProBNP today to help guide diuresis. CBC and TSH to evaluate for other etiologies of fatigue. Continue good blood pressure control with current anti-hypertensive regimen. On Jardiance for T2DM but also beneficial for HFpEF patient population. Assessment & Plan (07/17/2022 3:05 PM CDT): New onset fatigue, edema and shortness of breath with exertion in May. Noted to have an elevated BNP at the beginning of april and echo from 06/26/22) showing LVEF of 70%, sigmoid septum without LVOT obstruction, diastolic dysfunction, LA enlargement, moderate PAH with an estimated PA SP of 51mmHg, mild to moderate TR, and a dilated inferior vena cava consistent with increased right atrial pressure. Suspect findings are consistent with diastolic heart failure exacerbation. He is volume up today on examination without any evidence of acute decompensation. Repeat CMP and NT ProBNP today notes Cr of 1.9 (unchanged from prior results on )and NT ProBNP of 1.8 K. Will check with renal transplant to ensure they are agreeable with gentle diuretic therapy. Patients last Cr around 1.9. Will plan to repeat BNP and echo following diuresis to assess for improvement in pulmonary hypertension noted on recent echo. Addendum: Dr. Yu reviewed case and agrees that patient likely has group 2 pulmonary hypertension. We will request his echo images for review. I spoke with his transplant team and they are ok with proceeding with Lasix for volume management. I will therefore initiate him on Lasix 40 mg daily for the next 3 days. He will then have lab work completed on Wednesday. We will review his labs and symptoms and determine further therapy from there. Him and his were agreeable to this plan. Renal artery stenosis 04/30/2022 Overview (04/30/2022): Added automatically from request for surgery [id number] Encounter for preadmission testing 04/24/2022 LAYO (acute kidney injury) 04/24/2022 Dyslipidemia 10/22/2021 Assessment & Plan (08/26/2023 10:01 PM CDT): Continue Atorvastatin 20 mg nightly Assessment & Plan (06/11/2023 9:51 PM CDT): Continue Atorvastatin 20 mg nightly Assessment & Plan (10/30/2022 10:17 AM CDT): Continue Atorvastatin 20 mg nightly Assessment & Plan (08/21/2022 8:27 AM CDT): Appropriately controlled. Continue Atorvastatin 20 mg daily. Assessment & Plan (07/17/2022 12:25 PM CDT): ?? Continue Atorvastatin 20 mg daily. Vitamin D deficiency 10/07/2021 Other hyperlipidemia 10/07/2021 Assessment & Plan (09/21/2022 10:00 AM CDT): -last lipid panel dated 08/20/2022: Total cholesterol 89, triglycerides 104, HDL 40, LDL 28 -continue same medical management Assessment & Plan (05/04/2022 8:34 AM CDT): -last lipid panel dated 02/20/2022: Total cholesterol 119, triglycerides 149, HDL 45, LDL 44 -continue same medical management Hyperkalemia 06/20/2019 Assessment & Plan (06/20/2019 6:12 AM CDT): Patient s/p renal transplant 05/29, admitted after monitoring labs showed K 6.4 in setting of starting potassium supplementaion about 1 week prior w/ 20 meq daily -at OSH reportedly K 7.0, given calcium gluconate, insulin, and kayaxelate -upon arrival to 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 Assessment & Plan (05/04/2022 8:32 AM CDT): -alf use of immunosuppressants and steroids complicates diabetes management. 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 Good glycemic control will help with wound healing. See diabetes management above. Assessment & Plan (06/01/2019 4:55 PM CDT): H/o renal tx, on high dose steroids causing hyperglycemia. Good glycemic control will help with wound healing. See diabetes management above. Delayed renal graft function 05/31/2019 ESRD (end stage renal disease) ([facility]) 020 Overview (05/30/2019): Added automatically from request for surgery [id number] Pruritus 08/10/2018 ESRD (end stage renal disease) on dialysis 09/01 Hypertension 09/01/2017 Assessment & Plan (08/26/2023 10:00 PM CDT): Elevated today. No further orthostatic symptoms. Continue Losartan 12.5 mg daily. Will discuss with transplant team about increasing dose. Assessment & Plan (06/11/2023 9:57 PM CDT): Blood pressure elevated today. History of orthostatic hypotension. Reports that it has been well controlled at home when checked by PT (SBP 120's). No changes at this time. Correlate home blood pressure cuff at next visit. Assessment & Plan (10/30/2022 10:16 AM CDT): Blood pressure adequately controlled today in clinic. Amlodipine stopped on 10/28/22 in setting of bilateral lower extremity edema. Continue current regimen with Carvedilol 6.25 mg BID Assessment & Plan (09/23/2022 10:59 AM CDT): -BP today is 121/73 -Will continue same antihypertensive medications at this time. Assessment & Plan (08/21/2022 8:26 AM CDT): Appropriately controlled in clinic today. Continue amlodipine 10 mg, carvedilol 25 mg BID,hydralazine 100 mg TID and Losartan 25 mg daily. Assessment & Plan (07/17/2022 12:24 PM CDT): Well controlled. ?? Continue amlodipine, carvedilol, hydralazine, and losartan at current doses. Assessment & Plan (05/05/2022 1:46 PM CDT): -BP today is 134/74 -Will continue same antihypertensive medications at this time. Assessment & Plan (06/20/2019 4:37 AM CDT): Recently started on amlodipine 5 mg daily -continue home amlodipine 5 Renal osteodystrophy 09/01/2017 Anemia in chronic kidney disease, on chronic christa lysis 09/01/2017 Reactive perforating collagenosis 07/06/2017 Acute bilateral low back pain without sciatica 0 06/22/2017 Obesity with body mass index 30 or greater 05/07 Flat foot 09/03/2016 Plantar fasciitis of left foot 09/03/2016 Rotator cuff impingement syndrome of left should er 09/03/2016 Sebaceous gland hyperplasia 11/20/2015 Anemia of chronic renal failure 04/01/2015 Assessment & Plan (06/20/2019 4:40 AM CDT): Baseline Hgb ~12 -stable at 12.1 on admission -CT Aftercare following organ transplant 04/01/2015 Arthralgia 09/30/2014 Inflammatory polyarthritis (CMS/HCC) 01/22/2014 Gouty arthritis 01/25/2012 Ankle pain 05/19/2011 Focal and segmental 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 -Advised to call with any concerns/complaints regarding glucose readings -Eye exam is up to date Assessment & Plan (05/05/2022 1:45 PM CDT): -Currently taking -A1C on 05/05/22 was 6.4% -Will continue same medication regimen for now -Could not tolerate Rybelsus at 7 mg -Discussed diet and activity modifications. -Advised to call with any concerns/complaints regarding glucose readings -Eye exam is up to date Assessment & Plan (06/20/2019 4:45 AM CDT): Home regimen: lnatus 15 units daily, lispro 5 units w/ meals, linagliptin 5 mg daily -inpatient regimen: lantus 12, lispro 3 w/ meals +LDSSI Assessment & Plan (06/02/2019 12:47 PM CDT): New diabetes. A1C 6.6% in setting of ESRD suggesting patient has diabetes prior to steroids. Steroids are certainly exacerbating problem. ?? TDD 25 units insulin yesterday.Yesterday got pred 80, today pred 20. Recommendations: -lantus 15 units daily -humalog 5 units TIDAC -accuchecks TIDHS with low SSI TIDHS Discharge recs: Basal/bolus. We don't recommend slide at this time. Patient is new to insulin and we will try and keep regimen simple. Lantus 15 daily Humalog 5 TIDAC Check BG TIDHS F/u with PCP Assessment & Plan (06/01/2019 4:57 PM CDT): Patient unaware of diabetes history, however A1C 6.6% in setting of ESRD suggesting patient has diabetes prior to steroids. Steroids are certainly exacerbating problem. ?? TDD 9 units insulin yesterday. Two days ago got methylpred 500, yesterday and today pred 80mg, plan to decrease to pred 20 starting tomorrow. Patient eating fairly well. On linagliptin and SSI. No urine output, only blood per patient. Will give some insulin support today. Unclear if when steroids are lowered will need insulin. Recommendations: -lantus 15 units once -continue low SSI TIDHS -reevaluate tomorrow Discharge recs: TBD Osteoarthritis, knee 01/01/2010 Acne 11/06/2009 Cervical spondylosis 11/06/2009 Gout 11/06/2009 Lymphadenopathy, cervical 11/06/2009 Systemic lupus erythematosus (SLE) in adult ([facility]) 11/06/2009 Resolved Problems Problem Noted Date Diagnosed Date Resolved Date Hypotension 11/25/2022 08/26/2023 Elevated brain natriuretic p eptide (BNP) level 07/17/2022 08/26/2023 Diabetes mellitus 06/11/2021 10/07/2021 ESRD (end stage renal disease) ([facility] 11/18/2017 05/10/2018 Overview (11/18/2017): Added automatically from request for surgery [id number] Peritoneal dialysis catheter tunnel infection 10/28/19 18 09/12/2018 Overview (10/27/2017): Added automatically from request for surgery [id number] End-stage renal disease on h emodialysis ([facility]) 10/07/2017 05/10/2018 Overview (10/07/2017): Added automatically from request for surgery [id number] Stage 4 chronic kidney disease ([facility]) 01/16/2015 05/10/2018 Encounter for monitoring tacrolimus therapy 11/17/2010 09/12/2018 Immunizations Name Administration Dates Next Due Influenza, Trivalent, IM (MDV) 7,12/05/2015,11/15/2014,12/30,10/30/2012 Influenza, Trivalent, Preser vative Free, Intramuscular 02/15/2009 Influenza, Unspecified 11/15/2020 Moderna SARS-CoV-2 Monovalen t Vaccination (12+ YRS) 05/17/2020,04/19/2020 Social History Tobacco Use Types Packs/Day Years Used Date Smoking Tobacco: Never Passive Smoke Exposure: Never Smokeless Tobacco: Never Tobacco Cessation:Counseling Given: Not Answered Alcohol Use Standard Drinks/Week Comments No 0 [...] 09/29/2022 How often do you attend chur ch or protestant services? More than 4 times per year 09/29/2022 Do you belong to any clubs o r organizations such as yazidism groups, unions, fraternal or athletic groups, or school groups? Yes 09/29/2022 How often do you attend meet ings of the clubs or organizations you belong to? More than 4 times per year 09/29/2022 Are you , , di vorced, , never , or living with a partner? 09/29/2022 AUDIT-C Answer Date Recorded Q1: How often do you have a drink containing alcohol? Never 05/03/2023 Q2: How many drinks containi ng alcohol do you have on a typical day when you are drinking? Patient does not drink Q3: How often do you have si x or more drinks on one occasion? Never 05/03/2023 Overall Financial Resource Strain (CARDIA) Answe r [...] place to sleep or slept in a mcc (including now)? No 09/29/2022 Personal Safety Answer Date Recorded Have you ever been in or are you currently in a harmful physical or emotional relationship or is someone making you feel afraid or unsafe? 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 Gender Identity Not on file Sexual Orientation Not on file Last Filed Vital Signs Vital Sign Reading Time Taken Comments Blood Pressure 123/78 01/06/2024 12:56 PM EXTENSION SUPERVISOR Pulse 68 01/06/2024 12:56 PM EXTENSION SUPERVISOR Temperature 36.3 ??C (97.4 ??F) 12/15/2023 1 1:24 AM CDT Respiratory Rate 18 12/15/2023 11:2 4 AM CDT Oxygen Saturation 98% 01/06/2024 12: 56 PM EXTENSION SUPERVISOR Inhaled Oxygen Concentration - - Weight 83.4 kg (183 lb 12.8 oz) 024 12:56 PM EXTENSION SUPERVISOR Height 170.2 cm (5' 7 ) 01/06/2024 12:5 6 PM EXTENSION SUPERVISOR Body Mass Index 28.79 01/06/2024 12:56 PM EXTENSION SUPERVISOR Plan of Treatment Not on file Medical Devices Implanted Type Area House Cleaner Device Identifier Shelf Expiration Date Model / Serial / Lot [employer] Luis Miguel Angio-Seal Vip 6fr Closere Device [id number] - [id number] - [id number] Implanted:Qty: 1 on 05/04/2022 by Juan Alston MD at [facility] Vascular Closure Device Left: Femoral [employer] Luis Miguel 01/14/2023 [id number] / [id number] / [id number] 2 [employer] [id number] Cypress Acuseal 4-7mm 45cm Taper Graft Vascular Sterile - [id number] - [id number] Implanted:Qty: 1 on 11/01/2017 by Ace Payan MD at [facility] Left: Arm [employer] 04/22/2020 [id number] / [id number] / Explanted Type Area House Cleaner Device Identifier Shelf Expiration Date Model / Serial / Lot [employer] [id number] Universa 6fr 22cm Radiopaque Tip Positioner Dock Coordinator Braid - [id number] Implanted:Qty: 1 on 05/30/2019 by Rosario Colbert MD at [facility] Explanted:Qty: 1 on 07/06/2019 by Con Shelby NP Stent Left: Ureter [employer] 08/21/2023 [id number] / / Description:Transplanted ure ter Procedures Procedure Name Priority Date/Time Associated Diagnosis Comments ALBUMIN CREATININE RATIO, URINE Routine 02/25/2024 HEMOGLOBIN A1C Routine 02/25/2024 HEPATIC FUNCTION PANEL Routine 02/25/2024 LIPID PANEL Routine 02/25/2024 RENAL FUNCTION PANEL Routine 02/25/2024 TACROLIMUS LEVEL, TROUGH Routine 02/25/2024 CBC WITH AUTO DIFFERENTIAL Routine 02/25/2024 TACROLIMUS LEVEL, TROUGH Routine 01/25/2024 CBC WITH AUTO DIFFERENTIAL Routine 01/25/2024 RENAL FUNCTION PANEL Routine 01/25/2024 PROTEIN / CREATININE RATIO, URINE, RANDOM Routine 01/25/2024 TACROLIMUS LEVEL, TROUGH Routine 12/28/2023 RENAL FUNCTION PANEL Routine 12/28/2023 PROTEIN / CREATININE RATIO, URINE, RANDOM Routine 12/28/2023 CBC WITH AUTO DIFFERENTIAL Routine 12/28/2023 EGFR Routine 12/15/2023 10:52 AM CDT Multiple myeloma not having achieved remission (CMS/HCC) (HCC) COMPREHENSIVE METABOLIC PANEL Routine 12/15/2023 10:52 AM CDT Multiple myeloma not having achieved remission (CMS/HCC) (HCC) IMMUNOGLOBULIN FREE LIGHT CHAINS Routine 12/15/2023 10:52 AM CDT Multiple myeloma not having achieved remission (CMS/HCC) (HCC) PROTEIN ELECTROPHORESIS, WITH REFLEX, SERUM Routine 12/15/2023 10:52 AM CDT Multiple myeloma not having achieved remission (CMS/HCC) (HCC) DIFFERENTIAL AUTO Routine 12/15/2023 10: 45 AM CDT Multiple myeloma not having achieved remission (CMS/HCC) (HCC) CBC WITH AUTO DIFFERENTIAL Routine 12/15/2023 10:45 AM CDT Multiple myeloma not having achieved remission (CMS/HCC) (HCC) POCT GLUCOSE [id number] Routine 12/15/2023 9: 12 AM CDT Type 2 diabetes mellitus with hyperglycemia, with long-term current use of insulin (HCC) THYROID FUNCTION CASCADE Routine 10/12/2022 10:23 AM CDT Neuropathy (CMS/HCC) PSA SCREEN STAT 09/24/2022 4:48 PM CDT HEPATITIS C ANTIBODY Routine 05/30/2019 1:17 PM CDT from Last 3 Months or Most Recently Relevant to Health Maintenance Results * (ABNORMAL) Tacrolimus level trough (02/25/2024) SCRIBED Tacrolimus, trough 2.8(A) 5 - 20 TXP NO LAB FOUND Blood 02/25/2024 Historical Provider LAB BLOOD ORDERABLES Aida l Result Performing Organization Address [facility] de Phone Number TXP NO LAB FOUND * CBC with auto differential (02/25/2024) SCRIBED WBC 8.5 4.8 - 10.8 k/cumm TXP NO LAB FOUND SCRIBED Hemoglobin 16.3 14 - 18 g/dL TXP NO LAB FOUND SCRIBED Hematocrit 46.8 40 - 54 % TXP NO LAB FOUND SCRIBED Platelets 150 150 - 420 k/cumm TXP NO LAB FOUND SCRIBED Lymphocytes Abs 1.32 1.10 - 4.50 k/cumm TXP NO LAB FOUND Blood 02/25/2024 Result [facility] Provider LAB BLOOD ORDERABLES Edit ed Result - Final Performing Organization Address [facility] de Phone Number TXP NO LAB FOUND * (ABNORMAL) Albumin Creatinine Ratio, Urine (02/25/2024) SCRIBED Creatinine, Urine 102.95 40 - 278 TXP NO LAB FOUND SCRIBED Microalbumin >400.00 n/a TXP NO LAB FOUND SCRIBED Microalb/Creat Ratio 388.5(A) 0 - 30 TXP NO LAB FOUND Urine 02/25/2024 Result [facility] Historical Provider LAB URINE ORDERABLES Edit ed Result - Final Performing Organization Address [facility] de Phone Number TXP NO LAB FOUND * Hemoglobin A1c (02/25/2024) SCRIBED Hemoglobin A1c 7.7 <57 % TXP NO LAB FOUND Blood 02/25/2024 [facility] Provider LAB BLOOD ORDERABLES Aida l Result TXP NO LAB FOUND * (ABNORMAL) Hepatic function panel (02/25/2024) SCRIBED Protein, Total, Serum 6.6 6.4 - 8.2 g/dL TXP NO LAB FOUND SCRIBED Albumin 4.4 3.4 - 5.0 g/dl TXP NO LAB FOUND SCRIBED Bilirubin, Total 2.6(A) 0.0 - 1.00 mg/dL TXP NO LAB FOUND SCRIBED Bilirubin, Direct 0.3(A) 0.0 - 0.2 mg/dL TXP NO LAB FOUND SCRIBED Alkaline Phosphatase 100 46 - 116 Units/L TXP NO LAB FOUND SCRIBED Aspartate Transaminase (AST) 29 15 - 37 Units/L TXP NO LAB FOUND SCRIBED Alanine Transaminase (ALT) 54 16 - 63 Units/L TXP NO LAB FOUND Blood 02/25/2024 [facility] Provider LAB BLOOD ORDERABLES Aida l Result [place] NO LAB FOUND * (ABNORMAL) Renal function panel (02/25/2024) SCRIBED Calcium 9.9 8.5 - 10.1 mg/dl TXP NO LAB FOUND SCRIBED Phosphorus 2.4(A) 2.6 - 4.7 mg/dl TXP NO LAB FOUND SCRIBED Albumin 4.4 3.4 - 5.0 g/dl TXP NO LAB FOUND SCRIBED Glucose 145(A) 70 - 99 mg/dl TXP NO LAB FOUND SCRIBED Creatinine 1.71(A) 0.70 - 1.30 mg/dl TXP NO LAB FOUND SCRIBED Sodium 142 136 - 145 mmol/L TXP NO LAB FOUND SCRIBED Potassium 3.6 3.5 - 5.1 mmol/L TXP NO LAB FOUND SCRIBED Chloride 105 98 - 108 mmol/L TXP NO LAB FOUND SCRIBED Carbon Dioxide 25 21 - 32 mmol/L TXP NO LAB FOUND SCRIBED eGFR in NonAfrican Nigerian 49 >60 TXP NO LAB FOUND SCRIBED Urea Nitrogen (BUN) 33(A) 7 - 18 mg/dl TXP NO LAB FOUND Blood 02/25/2024 Result [facility] Provider LAB BLOOD ORDERABLES Aida l Result Performing Organization Address [facility] de Phone Number TXP NO LAB FOUND * (ABNORMAL) Lipid panel (02/25/2024) SCRIBED Cholesterol, Total 165 0 - 200 TXP NO LA B FOUND SCRIBED HDL 45 40 - 60 TXP NO L AB FOUND SCRIBED LDL 61 <130 TXP NO L AB FOUND SCRIBED Triglycerides 293(A) 0 - 150 TXP NO LAB FOUND Blood 02/25/2024 Result [facility] Provider LAB BLOOD ORDERABLES Aida l Result Performing Organization Address [facility] de Phone Number TXP NO LAB FOUND * (ABNORMAL) Tacrolimus level trough (01/25/2024) SCRIBED Tacrolimus, trough 3.7(A) 5 - 20 TXP NO LAB FOUND Blood 01/25/2024 Result [facility] Provider LAB BLOOD ORDERABLES Edit ed Result - Final Performing Organization Address [facility] de Phone Number TXP NO LAB FOUND * (ABNORMAL) CBC with auto differential (01/25/2024) SCRIBED WBC 8.2 4.8 - 10.8 k/cumm TXP NO LAB FOUND SCRIBED Hemoglobin 17.5 14 - 18 g/dL TXP NO LAB FOUND SCRIBED Hematocrit 49.8 40 - 54 % TXP NO LAB FOUND SCRIBED Platelets 118(A) 150 - 420 k/cumm TXP NO LAB FOUND SCRIBED Lymphocytes Abs 1.12 1.10 - 4.50 k/cumm TXP NO LAB FOUND Blood 01/25/2024 Historical Provider MD LAB BLOOD ORDERABLES Edit ed Result - Final TXP NO LAB FOUND * (ABNORMAL) Protein / creatinine ratio, urine, random (01/25/2024) SCRIBED Protein, Urine 64.4(A) 0 - 11.9 TXP NO LAB FOUND SCRIBED Creatinine, Urine 81.61 40 - 278 TXP NO LAB FOUND SCRIBED Protein/Creat Ratio 0.79(A) 0 - 0.20 TXP NO LAB FOUND Urine 01/25/2024 Historical Provider LAB URINE ORDERABLES Aida l Result Performing Organization Address City/[facility]/ZIP Co de Phone Number TXP NO LAB FOUND * (ABNORMAL) Renal function panel (01/25/2024) SCRIBED Calcium 9.6 8.5 - 10.1 mg/dl TXP NO LAB FOUND SCRIBED Phosphorus 2.8 2.6 - 4.7 mg/dl TXP NO LAB FOUND SCRIBED Albumin 4.0 3.4 - 5.0 g/dl TXP NO LAB FOUND SCRIBED Glucose 138(A) 70 - 99 mg/dl TXP NO LAB FOUND SCRIBED Creatinine 1.54(A) 0.70 - 1.30 mg/dl TXP NO LAB FOUND SCRIBED Sodium 140 136 - 145 mmol/L TXP NO LAB FOUND SCRIBED Potassium 3.2(A) 3.5 - 5.1 mmol/L TXP NO LAB FOUND SCRIBED Chloride 101 98 - 108 mmol/L TXP NO LAB FOUND SCRIBED Carbon Dioxide 28 21 - 32 mmol/L TXP NO LAB FOUND SCRIBED eGFR in NonAfrican Nigerian 0 0 TXP NO LAB FOUND SCRIBED Urea Nitrogen (BUN) 24(A) 7 - 18 mg/dl TXP NO LAB FOUND SCRIBED eGFR in 56 >60 TXP NO LAB FOUND Blood 01/25/2024 Result [facility] Provider LAB BLOOD ORDERABLES Edit ed Result - Final Performing Organization Address [facility] de Phone Number TXP NO LAB FOUND * (ABNORMAL) Tacrolimus level trough (12/28/2023) SCRIBED Tacrolimus, trough 2.3(A) 5 - 20 TXP NO LAB FOUND Blood 12/28/2023 Result [facility] Provider LAB BLOOD ORDERABLES Edit ed Result - Final Performing Organization Address [facility] de Phone Number TXP NO LAB FOUND * (ABNORMAL) CBC with auto differential (12/28/2023) SCRIBED WBC 6.1 4.8 - 10.8 k/cumm TXP NO LAB FOUND SCRIBED Hemoglobin 17.0 14 - 18 g/dL TXP NO LAB FOUND SCRIBED Hematocrit 48.8 40 - 54 % TXP NO LAB FOUND SCRIBED MPV 106(A) 150 - 420 fL TXP NO LAB FOUND SCRIBED Lymphocytes Abs 0.97(A) 1.10 - 4.50 k/cumm TXP NO LAB FOUND Blood 12/28/2023 Result [facility] Provider LAB BLOOD ORDERABLES Aida l Result Performing Organization Address [facility] de Phone Number TXP NO LAB FOUND * (ABNORMAL) Protein / creatinine ratio, urine, random (12/28/2023) SCRIBED Protein, Urine 83.1(A) 0 - 11.9 TXP NO LAB FOUND SCRIBED Creatinine, Urine 97.43 40 - 278 TXP NO LAB FOUND SCRIBED Protein/Creat Ratio 0.85 n/a TXP NO LAB FOUND Urine 12/28/2023 Result [facility] Provider LAB URINE ORDERABLES Edit ed Result - Final Performing Organization Address [facility] de Phone Number TXP NO LAB FOUND * (ABNORMAL) Renal function panel (12/28/2023) SCRIBED Calcium 9.6 8.5 - 10.1 mg/dl TXP NO LAB FOUND SCRIBED Phosphorus 2.6 2.6 - 4.7 mg/dl TXP NO LAB FOUND SCRIBED Albumin 3.9 3.4 - 5.0 g/dl TXP NO LAB FOUND SCRIBED Glucose 128(A) 70 - 99 mg/dl TXP NO LAB FOUND SCRIBED Creatinine 1.57(A) 0.70 - 1.30 mg/dl TXP NO LAB FOUND SCRIBED Sodium 144 136 - 145 mmol/L TXP NO LAB FOUND SCRIBED Potassium 3.4(A) 3.5 - 5.1 mmol/L TXP NO LAB FOUND SCRIBED Chloride 105 98 - 108 mmol/L TXP NO LAB FOUND SCRIBED Carbon Dioxide 29 21 - 32 mmol/L TXP NO LAB FOUND SCRIBED eGFR in NonAfrican Nigerian 55 >=60 TXP NO LAB FOUND SCRIBED Urea Nitrogen (BUN) 29(A) 7 - 18 mg/dl TXP NO LAB FOUND Blood 12/28/2023 Historical Provider LAB BLOOD ORDERABLES Edit ed Result - Final Performing Organization Address [facility] de Phone Number TXP NO LAB FOUND * (ABNORMAL) eGFR (12/15/2023 10:52 AM CDT) eGFR 49(L) >=60 mL/min/1. 73 m2 Comment: Interpretive Data Reference Interval Normal ?>/= 90 mL/min/1.73m2 Mildly decreased* ? 60 - 89 mL/min/1.73m2 Mildly to moderately decreased ?45 - 59 mL/min/1.73m2 Moderately to severely decreased ??30 - 44 mL/min/1.73m2 Severely decreased ?15 - 29 mL/min/1.73m2 Kidney Failure ?< 15 ??mL/min/1.73m2 *Relative to young adult level Estimated glomerular filtration rate is determined by the 2020 CKD-EPI equation recommended by the National Kidney Foundation (A Unifying Approach to GFR Estimation: Recommendations of the NKF-ASK Task Force on Reassessing the Inclusion of Race in Diagnosing Kidney Disease, JASN 2020). The CKD-EPI equation should not be used for patients with unstable renal function and has not been validated in children and those over 70. Current interpretive data was last reviewed 2020. Blood 12/15/2023 10:5 2 AM CDT 12/15/2023 10:52 AM CDT Felipe Foss MD LAB BLOOD ORDERABLES Final R esult [facility] [place] [address] * Immunoglobulin free light chains (12/15/2023 10:52 AM CDT) [place]/Lambda ratio [facility] 1.13 0.26 - 1.65 Comment: Interpretive Data The Binding Site FreeLite assay procedure was used. Results from different manufacturers or methods may not be comparable. Serial testing should be performed using the same methods and instrumentation. Current Interpretive Data was last revised on 2023. [place] free light chain [facility] 1.63 0.33 - 1.94 mg/dL [facility] Comment: Interpretive Data The Binding Site FreeLite assay procedure was used. Results from different manufacturers or methods may not be comparable. Serial testing should be performed using the same methods and instrumentation. Current Interpretive Data was last revised on 2023. Lambda free light chain [facility] 1.44 0.57 - 2.63 mg/dL [facility] Comment: Interpretive Data The Binding Site FreeLite assay procedure was used. Results from different manufacturers or methods may not be comparable. Serial testing should be performed using the same methods and instrumentation. Current Interpretive Data was last revised on 2023. Blood 12/15/2023 10:5 2 AM CDT 12/15/2023 11:25 AM CDT Felipe Foss MD LAB BLOOD ORDERABLES Final R esult Performing Organization Address City/[facility] [[email or web address]] Co de Phone Number [facility] Department [place] [employer] [place] [address] * Protein electrophoresis with reflex, serum (12/15/2023 10:52 AM CDT) [facility] Protein, sr 7.2 6.2 - 8.2 g/dL Albumin 4.7 3.2 - 5.0 g/dL [facility] Alpha-1 globulin 0.3 0.2 - 0.4 g/dL [facility] Alpha-2 globulin 0.7 0.5 - 1.0 g/dL [facility] Beta-1 globulin 0.4 0.3 - 0.6 g/dL [facility] Beta-2 globulin 0.3 0.2 - 0.6 g/dL [facility] Gamma globulin 0.8 0.5 - 1.7 g/dL [facility] SPEP interp Please see comment [facility] Comment: No apparent monoclonal peak Electrophoretic pattern appears similar to previous sample 08/26/23 Reviewed and signed by Varghese Curtis MD, PhD 12/16/2023 Blood 12/15/2023 10:5 2 AM CDT 12/15/2023 11:25 AM CDT Felipe Foss MD LAB BLOOD ORDERABLES Final R esult Performing Organization Address City/[facility] [[email or web address]] Co de Phone Number [facility] [place] [address] * (ABNORMAL) Comprehensive metabolic panel (12/15/2023 10:52 AM CDT) [facility] Sodium 141 135 - 145 mmol/L Potassium, pl 3.4 3.3 - 4.9 mmol/L [facility] Chloride 105 97 - 110 mmol/L [facility] CO2 27 22 - 32 mmol/L [facility] Anion gap 9 2 - 15 mmol/L [facility] BUN 33(H) 6 - 25 mg/dL [facility] Creatinine 1.58(H) 0.80 - 1.30 mg/dL [facility] Glucose 170 70 - 199 mg/dL [facility] Comment: Interpretive Data Fasting glucose >/= 126 mg/dl is diagnostic for diabetes. ?? Fasting is defined as no caloric intake for at least 8 hours. Fasting glucose between 100 mg/dl to 125 mg/dl is diagnostic of prediabetes. In a patient with classic symptoms of hyperglycemia or hyperglycemic crisis, a random glucose >/= 200 mg/dl is diagnostic for diabetes. In the absence of unequivocal hyperglycemia, results should be confirmed by repeat testing. The classification and Diagnosis of Diabetes Diabetes Care 2021; 46: S19-S40. Current interpretive data was last revised 2022. Calcium 10.3 8.5 - 10.3 mg/dL [facility] Bilirubin, total 2.7(H) 0.1 - 1.2 mg/dL [facility] Protein, pl 7.3 6.5 - 8.5 g/dL [facility] Albumin 4.7 3.5 - 5.0 g/dL [facility] Alk phos 107 40 - 130 Units/L [facility] ALT 41 7 - 55 Units/L [facility] AST 32 10 - 50 Units/L [facility] Blood 12/15/2023 10:5 2 AM CDT 12/15/2023 10:52 AM CDT us Felipe Foss MD LAB BLOOD ORDERABLES Final R esult [facility] [place] [address] * (ABNORMAL) Differential, auto (12/15/2023 10:45 AM CDT) Neutrophil abs 7.2(H) 1.5 - 6.5 K/cumm Comment:Testing performed by : [facility], [address] [place], [place] [id number] Lymphocyte abs 0.7(L) 0.8 - 3.3 K/cumm [facility] Comment:Testing performed by : [facility], [address] [place], [place] [id number] Monocyte abs 0.4 0.2 - 0.8 K/cumm [facility] Comment:Testing performed by : [facility], [address] [place], [place] [id number] Eosinophil abs 0.1 0.0 - 0.5 K/cumm [facility] Comment:Testing performed by : [facility] [facility], [address] [place], [place] [id number] Basophil abs 0.0 0.0 - 0.1 K/cumm [facility] Comment:Testing performed by : [facility], [address] [place], [place] [id number] Neutrophil pct 85.4 % [facility] Comment: Interpretive Data Percent cell count reference ranges are not reported, since discordance with absolute values may lead to misinterpretation of CBC data. Current Interpretive Data was last revised on 2017. Testing performed by: [facility], [address] [place] [phone] Lymphocyte pct 8.5 % [facility] Comment: Interpretive Data Percent cell count reference ranges are not reported, since discordance with absolute values may lead to misinterpretation of CBC data. Current Interpretive Data was last revised on 2017. Testing performed by: [facility], [address] [place] [phone] Monocyte pct 4.9 % [facility] Comment: Interpretive Data Percent cell count reference ranges are not reported, since discordance with absolute values may lead to misinterpretation of CBC data. Current Interpretive Data was last revised on 2017. Testing performed by: [facility], [address] [place] [phone] Eosinophil pct 0.8 % [facility] Comment: Interpretive Data Percent cell count reference ranges are not reported, since discordance with absolute values may lead to misinterpretation of CBC data. Current Interpretive Data was last revised on 2017. Testing performed by: [facility], [address] [place] [phone] Basophil pct 0.4 % [facility] Comment: Interpretive Data Percent cell count reference ranges are not reported, since discordance with absolute values may lead to misinterpretation of CBC data. Current Interpretive Data was last revised on 2017. Testing performed by: [facility], [address] [place] [phone] Blood 12/15/2023 10:4 5 AM CDT 12/15/2023 10:54 AM CDT us Felipe Foss MD LAB BLOOD ORDERABLES Final R esult [facility] [place] [address] * (ABNORMAL) CBC with auto differential (12/15/2023 10:45 AM CDT) WBC 8.4 3.8 - 9.9 K/cumm Comment:Testing performed by : [facility], [address] [place] [address] Hgb 17.6(H) 13.0 - 17.5 g/dL [facility] Comment:Testing performed by : [facility], [address] [place] [address] Hct 53.3(H) 38.9 - 50.3 % [facility] Comment:Testing performed by : [facility], [address] [place] [address] Plt 125(L) 150 - 400 K/cumm [facility] Comment:Testing performed by : [facility], [address] [place] [address] MPV 8.9 6.8 - 10.4 fL [facility] Comment:Testing performed by : [facility], [address] [place], [place] [phone] RBC 5.78 4.30 - 5.80 M/cumm [facility] Comment:Testing performed by : [facility], [address] [place], [place] [phone] MCV 92.3 81.3 - 96.[address] [facility] Comment:Testing performed by : [facility], [address] [place], [place] [phone] MCH 30.5 27.1 - 33.[address] [facility] Comment:Testing performed by : [facility], [address] [place], [place] [phone] MCHC 33.1 32.3 - 35.7 g/dL [facility] Comment:Testing performed by : [facility], [address] [place] [address] RDW CV 14.3 11.1 - 14.9 % [facility] Comment:Testing performed by : [facility], [address] [place], [place] [phone] NRBC abs 0.00 0.00 - 0.01 K/cumm [facility] Comment:Testing performed by : [facility], [address] [place] [address] Blood 12/15/2023 10:4 5 AM CDT 12/15/2023 10:54 AM CDT Narrative [facility] - 12/15/2023 10:59 AM CDT Please obtain labs in June 2023 Please fax results to hematology Dr Felipe Foss fax# [phone] us Felipe Foss MD LAB BLOOD ORDERABLES Final R esult [facility] [place] [address] * POCT glucose (12/15/2023 9:12 AM CDT) [facility] Glucose Blood, POC 138 mg/dL Blood 12/15/2023 9:12 AM CDT us Holly Cordon NP POINT OF CARE TEST ORDERA BLES Final Result * (ABNORMAL) TSH reflex to free T4 (10/12/2022 10:23 AM CDT) TSH 7.31(H) 0.30 - 4.20 mcIUnit/mL [facility] Blood 10/12/2022 10:2 3 AM CDT 10/12/2022 10:40 AM CDT us Milli GREEN LAB BLOOD ORDERABLES Aida diggs Result Performing Organization Address City/State/[facility] [[email or web address]] Co de Phone Number [facility] [place] [address] * PSA screen (09/24/2022 4:48 PM CDT) PSA-Total 0.54 <=5.40 ng/mL [facility] Comment: Interpretive Data ?AGE ? SEX ?REFERENCE INTERVAL 0 minutes-150 years ?Female ?None 0 minutes-49 years ? Male ?None ? 50-59 years ? Male ?0-3.90 ? 60-69 years ? Male ?0-5.40 ? 70-79 years ? Male ?0-6.20 ? 80-150 years ?Male ?0-6.20 The Gina PSA Total assay procedure was used. Results from different manufacturers or methods may not be comparable. Serial testing should be performed using the same method. Current interpretive data last revised 21. Blood 09/24/2022 4:48 PM CDT 09/24/2022 4:57 PM CDT us Malaika Victoria MD LAB BLOOD ORDERABLES Final Result [facility] [place] [address] * Hepatitis C antibody (05/30/2019 1:17 PM CDT) Hep C Ab Nonreactive Nonreactive [facility] Blood specimen (specimen) 05/30/2019 1:17 PM CDT 05/30/2019 1:38 PM CDT Abi Fitzpatrick NP LAB MICROBIOLOGY - GENERAL ORDERABLES Edited Result - Final Performing Organization Address City/[facility] [[email or web address]] Co de Phone Number [facility] [place] [address] from Last 3 Months or Most Recently Relevant to Health Maintenance Insurance [employer] [facility] MEDICARE [facility] [employer]ETNA [facility] Advance Directives For more information, please contact: [phone] Documents on File Type Date Recorded Patient Unemployment Claims Adjudicator Expl anation ADVANCE DIRECTIVE 04/07/2019 2:18 PM Becky Romel camron [email or web address] * Full Code (Latest Code Status on File) Date Activated Date Inactivated Comments 02/12/2023 6:57 PM 02/15/2023 7:00 PM * Full Code Date Activated Date Inactivated Comments 09/24/2022 11:35 PM 10/05/2022 10:17 PM * Full Code Date Activated Date Inactivated Comments 05/04/2022 9:28 AM 05/04/2022 4:06 PM * Full Code Date Activated Date Inactivated Comments 05/15/2021 12:44 PM 05/19/2021 5:29 PM * Full Code Date Activated Date Inactivated Comments 05/15/2021 8:43 AM 05/15/2021 12:44 PM Care 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
--- OUTSIDE RECORDS SUMMARY | 2024-03-14 15:29 | XMS_ITS ---
Author Organization [facility] Address [address] [place], [place] [id number] Care Team Providers Care Third Grade Teacher Name Role Phone MELA VENTURA Unavailable [phone] Rigo Alvarenga Unavailable Unavailable ALVIN JUNIOR Unavailable [phone] REASON FOR VISIT *General care Encounters Encounter Location Date Provider Diagnosis [facility] [address] [place], [place] [id number] 11/18/2023 ALVIN JUNIOR Plan Of Treatment No Information Progress Notes * ROSETTAHUSSAIN ZunigaDOB:1960 (63 yo M)Acc No.[id number]:11/18/2023 Patient:?ROSETTAHUSSAIN Provider:YARITZA JUNIOR :1960???Age:63 Y???Sex:Male Alexis e:11/18/2023 Address:[address] [place], [place] Subjective: * Chief Complaints: * ???1. *General care. * Medical History:? Objective: * Vitals:? Assessment: Plan: * Treatment: * Billing Information: * Visit Code:? * Procedure Codes:? * Electronic signature of MALIKA JUNIOR DPM on 03/14/2024 at 03:29 PM WORKFORCE DEVELOPMENT PROGRAM DIRECTOR Sign off status: Pending * Provider:YARITZA JUNIOR Date:?11/18/2023 Generated for Bibiana felder/Dulce/Guillermo on:?03/14/2024 03:29 PM WORKFORCE DEVELOPMENT PROGRAM DIRECTOR
--- OUTSIDE RECORDS SUMMARY | 2024-03-14 15:29 | XMS_ITS | Clinical Summary ---
Author Organization [facility] Address [address] [place] [address] Care Team Providers Care Commercial Installer Name Role Phone Rigo Alvarenga MD Primary Care Provider [phone] Rand Collins RN Unavailable [phone] Felipe Foss MD Unavailable Allergies Active Allergy Reactions Criticality Noted Date Comments Codeine Cough Low 11/20/2015 Duloxetine Diarrhea,Hallucinations High 10/26/2012 Prednisone Rash,Other (See comments) Medium 05/16/2010 Acne-like pimples, all over ?? At high doses. 06/20/19: ??Approved to give Prednisone per Dr. Elinor Villaseñor (Pato Garcia, RonaldD) Medications sour alvarez extract (TART ALVAREZ EXTRACT ORAL)Indication s:Gout,gout Take 1,200 mg by mouth every morning Active blood glucose strip-disp meter kit Use as directed. 1 kit 05/17/19 Active Additional Information Patient taking differently: 1 each, Use as directed. (3 times daily before meals and at bedtime as needed), Indications: type 2 diabetes mellitus, Informant: Self, Reported on 01/06/2024 blood-glucose meter (OneTouch Verio Meter) miscIndications :Type 2 diabetes mellitus with other specified complication, unspecified whether terminal press operator insulin use (HCC) Use to check blood sugar 4 times per day 1 each 06/12/19 Active Additional Information Patient taking differently: 1 [...] mellitus with other specified complication, unspecified whether terminal press operator insulin use (HCC) Use to read missy [...] mouth every morning Active FreeStyle Missy 3 [place] misc as directed Sugars have been way [...] 2 diabetes mellitus with other specified complication (HCC) INJECT 14 UNITS UNDER THE SKIN AT BEDTIME 15 mL 3 05/24/19 24 Active glucagon (Gvoke HypoPen 2-Pack) 1 mg/0.2 mL auto-injectorIn dications:Type 2 diabetes mellitus with other specified complication, unspecified whether fci insulin use (HCC) Inject 1 mg under the skin as needed (as needed for severe hypoglycemia) 0.4 mL 6 06/07/19 24 Active montelukast (SINGULAIR) 10 mg tablet 06/10/19 24 Active OneTouch Verio test strips stripIndication s:Type 2 diabetes mellitus with other specified complication, unspecified whether terminal press operator insulin use (HCC) CHECK BLOOD SUGAR 3 TIMES A DAY 100 strip 06/17/19 Active allopurinoL (ZYLOPRIM) 100 mg tablet Take 1 tablet (100 mg total) by mouth daily 30 tablet 06/24/19 24 Active pyridoxine (VITAMIN B-6) 100 mg tablet Take 1 tablet (100 mg total) by mouth daily Active acyclovir (ZOVIRAX) 400 mg tabletIndicatio ns:Multiple myeloma not having achieved remission (CMS/HCC) (HCC) Take 1 tablet (400 mg total) by mouth 2 (two) times a day For shingles prevention. 60 tablet 08/31/19 24 Active lancets (OneTouch Delica Plus Lancet) 30 gauge miscIndications :Type 2 diabetes mellitus with other specified complication, unspecified whether terminal press operator insulin use (HCC) USE TO CHECK BLOOD SUGAR 3 TIMES PER DAY 100 each 09/08/19 24 Active gabapentin (NEURONTIN) 300 mg capsuleIndicati ons:Neuropathic Pain Take 1 capsule (300 mg total) by mouth 2 (two) times a day 60 capsule 12/15/19 24 Active carvediloL (COREG) 3.125 mg tablet Take 1 tablet (3.125 mg total) by mouth 2 (two) times a day with meals 60 tablet 12/20/19 24 2024 Active FreeStyle Missy 3 Sensor deviceIndicatio ns:Type 2 diabetes mellitus with other specified complication, unspecified whether terminal press operator insulin use (HCC) Use to check blood [...] mellitus with other specified complication, unspecified whether terminal press operator insulin use (HCC) TAKE 1 TABLET BY MOUTH EVERY DAY 90 tablet 3 02/14/20 24 Active tirzepatide (Mounjaro) 7.5 mg/0.5 mL pen injectorIndicat ions:type 2 diabetes mellitus Inject 7.5 mg under the skin once a week 2 mL 11 02/17/19 25 Active empagliflozin (JARDIANCE) 10 mg tabletIndicatio ns:Type 2 diabetes mellitus with other specified complication, unspecified whether fci insulin use (HCC) Take 1 tablet (10 [...] MM on Envarsus 1mg Discharge Preferences: Lab: [facility] , [phone] standing orders q Monthly, FK,UPE, q3 HgbA1C Exp. 03/30/24 Home Health: [facility] /[phone] Local Pharmacy: [facility] in [place] [facility]: [facility] Problem Noted Date Diagnosed Date Peripheral polyneuropathy 10/21/2023 Weakness 03/17/2023 NSTEMI (non-ST elevated myocardial infarction) ( [facility]/HCC) 02/12/2023 Multiple myeloma not having achieved remission ( [facility]) 01/06/2023 Infiltrative cardiomyopathy 10/30/2022 Assessment & Plan [...] cardiology follow up. Discussed plan with attending call specialist. HEATHER on CPAP 09/25/2022 Assessment & Plan [...] x2 (07/2010, 05/2019) and now CARLOS (04/2022 US) with progressive CKD, RA (on pred only), [...] further with Dr. Yu. Will proceed with [facility] to better assess volume status and pulmonary [...] (04/30/2022): Added automatically from request for surgery [id number] Encounter for preadmission testing 04/24/2022 LAYO (acute [...] gluconate, insulin, and kayaxelate -upon arrival to [facility] ED, K 6.0, WBK 5.6 no additional therapies given -Repeat K and WBK on arrival, manage as appropriate -likely transfer to floor later this morning -renal transplant consult in AM -hold bactrim for time being as could be contributing to hyperkalemia, resume pending transplant nephrology recs ([facility] medication) BPH (benign prostatic hyperplasia) 06/20/2019 Assessment & Plan (06/20/2019 4:45 AM CDT): Continue home flomax Kidney transplant recipient 05/31/2019 Assessment & Plan (09/21/2022 10:01 AM CDT): -[facility] use of immunosuppressants and steroids complicates diabetes management. Assessment & Plan (05/04/2022 8:32 AM CDT): -long term care pharmacist use of immunosuppressants and steroids complicates diabetes [...] ESRD (end stage renal disease) ([facility]) 020 Overview (05/30/2019): Added automatically from request for surgery [id number] Pruritus 08/10/2018 ESRD (end stage renal disease) [...] Hgb ~12 -stable at 12.1 on admission -CTM Aftercare following organ transplant 04/01/2015 Arthralgia 09/30/2014 [...] 11/06/2009 Systemic lupus erythematosus (SLE) in adult ([facility] /[facility]) 11/06/2009 Resolved Problems Problem Noted Date Diagnosed Date Resolved Date Hypotension 11/25/2022 08/26/2023 Elevated brain natriuretic p eptide (BNP) level 07/17/2022 08/26/2023 Diabetes mellitus 06/11/2021 10/07/2021 ESRD (end stage renal disease) ([facility]) 11/18/2017 05/10/2018 Overview (11/18/2017): Added automatically from request for surgery [id number] Peritoneal dialysis catheter tunnel infection 10/28/19 18 09/12/2018 Overview (10/27/2017): Added automatically from request for surgery [id number] End-stage renal disease on h emodialysis ([facility]) 10/07/2017 05/10/2018 Overview (10/07/2017): Added automatically from request for surgery [id number] Stage 4 chronic kidney disease ([facility]) 01/16/2015 05/10/2018 Encounter for monitoring tacrolimus therapy 11/17/2010 09/12/2018 Encounters Date Type Department Care Team Description 03/01/2024 Telephone [facility] Metabolism and Lipid [address] [facility] [address] [place] [address] [place] [address] Isis Harper, director of laboratory operations results high triglycerides 02/29/2024 Lab [facility] Transplant Kidney [address] [facility] [address] Mailstop -[phone] [place] [address] Arturo Garcia MD 02/18/2024 Telephone [facility] Metabolism and Lipid [address] [facility] [address] [place] [address] [place] [address] Isis Harper, RN titrate mounjaro from 7.5 mg to 10 mg 01/26/2024 Lab [facility] Transplant Kidney [address] [facility] [address] Mailstop [phone] [place] [address] Arturo Garcia MD 01/25/2024 Lab [facility] Transplant Kidney [address] [facility] [address] Mail[address] [phone] [place] [address] Arturo Garcia MD 01/11/2024 Orders Only [facility] Metabolism and Lipid [address] [facility] [address] [place] [address] [place] [address] Holly Cordon NP 01/11/2024 Telephone [facility] Metabolism and Lipid [address] [facility] [address] [place] [address] [place] [address] Dagmar Kearns RMA New Rx Request 01/07/2024 Telephone [facility] Transplant Kidney [address] [facility] [address] Mailstop -[phone] [place] [address] Rand Collins RN 01/06/2024 1:15 PM TECHNICAL TRAINER Office Visit [facility] [address] [facility] 8th [place] [address] [place] [address] Flaquito Yu MD Chronic diastolic heart failure (HCC) (Primary Dx); Secondary hypertension; Dyslipidemia 01/06/2024 9:30 AM TECHNICAL TRAINER Telemedicine [facility] [address] [facility] [address] 6 [place] [id number] Felipe Foss MD Multiple myeloma not having achieved remission (CMS/HCC) (HCC) 12/31/2023 Lab [facility] Transplant Kidney [address] [facility] [address] Mailstop -[phone] [place] [address] Arturo Garcia MD 12/28/2023 Telephone [facility] Metabolism and Lipid [address] [facility] [address] [place] [address] Jigna Laguna, RN LOST MISSY 3 12/28/2023 Lab [facility] Transplant Kidney [address] [facility] [address] Mailstop [phone] [place] [address] Arturo Garcia MD 12/28/2023 Lab [facility] Transplant Kidney [address] [facility] [address] Mailstop [phone] [place] [address] Arturo Garcia MD 12/20/2023 Orders Only [facility] [address] [facility] [address]th [place] [address] [place] [address] Suhail Monet NP 12/17/2023 Telephone [facility] Met[facility] and Lipid [address] [place] [address] [place] [address] Jigna Laguna, FLORES baird 12/15/2023 11:15 AM CDT Office Visit [facility] Floor [address] [place] [phone] Felipe Foss MD Multiple myeloma not having achieved remission (CMS/HCC) (HCC) (Primary Dx); Peripheral polyneuropathy (CMS/HCC) 12/15/2023 10:30 AM CDT Lab [facility] [place] - Lab Collection [facility] [address] [place] [address] Multiple myeloma not having achieved remission (CMS/HCC) (HCC) 12/15/2023 10:15 AM CDT Lab [facility] [address] [place] [phone] 12/15/2023 9:00 AM CDT Office Visit [facility] Met[facility] Lipid [address] [place] [address] [place] [address] Holly Cordon NP Type 2 diabetes mellitus with hyperglycemia, with long-term current use of insulin (HCC) (Primary Dx); Obesity with body mass index 30 or greater; Dyslipidemia 12/13/2023 Telephone [facility] [address] [place] [address] [place] [address] Suhail Monet NP from Last 3 Months Immunizations Name Administration Dates Next Due Influenza, Trivalent, IM (MDV) 7,12/05/2015,11/15/2014,12/30,10/30/2012 Influenza, Trivalent, Preser vative Free, Intramuscular 02/15/2009 Influenza, Unspecified 11/15/2020 Moderna SARS-CoV-2 Monovalen t Vaccination (12+ YRS) 05/17/2020,04/19/2020 Surgical History Surgery Date Site/Laterality Comments PERITONEAL CATHETER INSERTION TUNNELED 11/11/2015 N/A Removed 2017 OK BRNCC INCL FLUOR GDNCE DX W/CELL WASHG SPX ? Bronchoscopy (Diagnostic) - (Added by TW Conv) LUNG BIOPSY ? KIDNEY TRANSPLANT 02/15/2010 - 02/14/2011 US GUIDED BIOPSY RENAL 05/15/2021 N/A KIDNEY TRANSPLANT 05/30/2019 CARDIAC CATHETERIZATION 05/04/2022 Renal angiogram BIOPSY DEEP BONE 09/28/2022 N/A US GUIDED PARACENTESIS 10/05/2022 N/A US GUIDED PARACENTESIS 10/30/2022 N/A CARDIAC CATHETERIZATION 09/10/2022 Right heart cath ARTERIOVENOUS GRAFT PLACEMENT 10/16/2017 - 11/14/2017 Left AV Graft LUE UMBILICAL HERNIA REPAIR 02/15/2007 - 02/15/2008 BONE MARROW BIOPSY 12/09/2022 Hypercleullar marrow (70% cellular) with Plasma cell neoplasm 30% of cellularity lambda retricted mild birosis MF-1 NERVE BIOPSY 03/26/2023 Right sural nerve biopsy Medical History Medical History Date Comments History of chronic rhinitis Hist ory of chronic rhinitis - (Added by TW Conv) Weight loss Hypertension Dxd ~2002 Cough Erectile dysfunction Rash PONV (postoperative nausea a nd vomiting) Hyperlipidemia Treated with sta tin BPH (benign prostatic hyperplasia) Rheumatoid arthritis (HCC) RA Dx d ~1997-- Currently no medication GERD (gastroesophageal reflux disease) ESRD (end stage renal diseas e) ([facility]) ([facility]) s/p PD [id number], HD and kidney tx 2010 & 2019 Gout History of peritoneal dialysis 2 -2017 Arthritis Sleep apnea Uses CPAP grabiel e nightly Hard to intubate 11/01/2017 subsequent thro at pain, right gland pain and bit upper lip; No documented difficulty with most recent surgery 05/2019 Acute respiratory failure re quiring reintubation (CMS/HCC) ([facility]) Peritoneal dialysis catheter tunnel infection (HCC) 10/27/2017 Added automatically from req uest for surgery [id number] Diabetes mellitus (HCC) Dxd ~201 1 Heart murmur Multiple myeloma (HCC) Multiple myeloma dxd ~11/2022-- Treated with Revlimid Heart failure with preserved ejection fraction (CMS/HCC) ([facility]) Per TTE 09/2022-- EF 84% with grade I diastolic dysfunction Pulmonary hypertension (HCC) Per RHC 09/10/2022-- PA pressure 49/20 mmHg (mean 28 mmHg); PA wedge pressure 13 mmHg; Per TTE 09/29/2022-- PASP 37 mmHg CHF (congestive heart failur e) (CMS/HCC) (HCC) Type 2 diabetes mellitus (HCC) Family History Medical History Relation Name Comments Diabetes Mother Hypertension Mother Kidney disease Mother Anesthesia problems Neg Hx Relation Name Status Comments Mother Social History Tobacco Use Types Packs/Day Years [...] How often do you attend chur or worship services? More than 4 times per year 09/29/2022 Do you belong to any clubs o r organizations such as anglican groups, unions, fraternal or athletic groups, or [...] place to sleep or slept in a penitentiary (including now)? No 09/29/2022 Personal Safety Answer Date Recorded Have you ever been in or are you currently in a harmful physical or emotional relationship or is someone making you feel afraid or unsafe? Denies 05/03/2023 Sex and Gender Information Value Date Recorded Sex Assigned at Not on file Legal Sex Male 12:49 PM TECHNICAL TRAINER Gender Identity Not on file Sexual Orientation Not on file Obstetrics History Last Filed Vital Signs Vital Sign Reading Time Taken Comments Blood Pressure 123/78 01/06/2024 12:56 PM TECHNICAL TRAINER Pulse 68 01/06/2024 12:56 PM TECHNICAL TRAINER Temperature 36.3 ??C (97.4 ??F) 12/15/2023 1 1:24 AM CDT Respiratory Rate 18 12/15/2023 11:2 4 AM CDT Oxygen Saturation 98% 01/06/2024 12: 56 PM TECHNICAL TRAINER Inhaled Oxygen Concentration - - Weight 83.4 kg (183 lb 12.8 oz) 024 12:56 PM TECHNICAL TRAINER Height 170.2 cm (5' 7 ) 01/06/2024 12:5 6 PM TECHNICAL TRAINER Body Mass Index 28.79 01/06/2024 12:56 PM TECHNICAL TRAINER Plan of Treatment Health Maintenance Due Date Last Done Comments Colon Cancer Screening-Colonoscopy 1961 Pneumococcal vaccine <65 (1 of 2 - PCV) 08/14/1967 Dilated Eye Exam 08/14/1971 DTaP/Tdap/Td Vaccine (1 - Tdap) 1972 Hepatitis B Screening 08/14/1979 Regular Well Visit/Exam 18-64 08/14/1979 Zoster Vaccine (1 of 2) 1980 Covid-19 Vaccine (3 - Modern a risk series) 06/14/2020 05/17/2020, 04/19/2020 Depression Screening 09/25/2023 09/24/2022, 05/07/2021, 05/07/2021 TSH Level 10/13/2023 10/12/2022, 09/15, 08/21/2022 Influenza Vaccine (#1) 2023 , 10/23/2016, 12/05/2015, Additional history exists Hemoglobin A1C 08/24/2024 02/25/2024, 11/15, 11/17/2023, Additional history exists Prostate Cancer Screening-PSA 09/25/2024, 09/24/2022, 09/24/2022, Additional history exists Foot Exam 12/14/2024 12/15/2023 Albumin Creatinine Ratio, Urine 02/24/2025 , 02/14/2023 Lipid Panel 02/24/2025 02/25/2024, 11/15, 11/17/2023, Additional history exists eGFR 02/24/2025 02/25/2024, 01/15, 12/28/2023, Additional history exists Hepatitis C Screening Completed 05/30/2019 , 12/20/2018, 10/11/2017, Additional history exists Medical Devices Implanted Type Area Laboratory Immunologist Device Identifier Shelf Expiration Date Model / Serial / Lot [employer] Luis Miguel Angio-Seal Vip 6fr Closere Device [id number] - [id number] - [id number] Implanted:Qty: 1 on 05/04/2022 by Juan Alston MD at [facility] Vascular Closure Device Left: Femoral [employer] Luis Miguel 01/14/2023 [id number] / [id number] / [id number] [employer] [id number] [place] Acuseal 4-7mm 45cm Taper Graft Vascular Sterile - [id number] - [id number] Implanted:Qty: 1 on 11/01/2017 by Ace Payan MD at [facility] Left: Arm [employer] 04/22/2020 [id number] / [id number] / Explanted Type Area Laboratory Immunologist Device Identifier Shelf Expiration Date Model / Serial / Lot [employer] [id number] Universa 6fr 22cm Radiopaque Tip Positioner Enterprise [employer] Manager Braid - [id number] Implanted:Qty: 1 on 05/30/2019 by Rosario Colbert MD at [facility] Explanted:Qty: 1 on 07/06/2019 by Con Shelby NP Stent Left: Ureter [employer] 08/21/2023 [id number] / / Description:Transplanted ure ter Procedures Procedure [...] having achieved remission (CMS/HCC) (HCC) POCT GLUCOSE [id number] Routine 12/15/2023 9: 12 AM CDT Type [...] 20 TXP NO LAB FOUND Blood 02/25/2024 Result [facility] Historical Provider MD LAB BLOOD ORDERABLES Aida l Result Performing Organization Address [facility] de Phone Number TXP NO LAB FOUND [...] TXP NO LAB FOUND Blood 02/25/2024 Result [facility] Provider LAB BLOOD ORDERABLES Edit ed Result - Final Performing Organization Address [facility] de Phone Number TXP NO LAB FOUND * (ABNORMAL) Albumin Creatinine Ratio, Urine (02/25/2024) SCRIBED Creatinine, Urine 102.95 40 - 278 TXP NO LAB FOUND SCRIBED Microalbumin >400.00 n/a TXP NO LAB FOUND SCRIBED Microalb/Creat Ratio 388.5(A) 0 - 30 TXP NO LAB FOUND Urine 02/25/2024 Result [facility] Historical Provider LAB URINE ORDERABLES Edit ed Result - Final Performing Organization Address [facility] de Phone Number TXP NO LAB FOUND * Hemoglobin A1c (02/25/2024) SCRIBED Hemoglobin A1c 7.7 <57 % TXP NO LAB FOUND Blood 02/25/2024 Historical Provider LAB BLOOD ORDERABLES Aida diggs Result TXP NO LAB FOUND * (ABNORMAL) [...] Units/L TXP NO LAB FOUND Blood 02/25/2024 Historical Provider LAB BLOOD ORDERABLES Aida diggs Result TXP NO LAB FOUND * (ABNORMAL) Renal [...] NO LAB FOUND SCRIBED eGFR in NonAfrican Moldovan 49 >60 TXP NO LAB FOUND SCRIBED Urea Nitrogen (BUN) 33(A) 7 - 18 mg/dl TXP NO LAB FOUND Blood 02/25/2024 Result [facility] Historical Provider LAB BLOOD ORDERABLES Aida l Result Performing Organization Address [facility] de Phone Number TXP NO LAB FOUND * (ABNORMAL) Lipid panel (02/25/2024) SCRIBED Cholesterol, Total 165 0 - 200 TXP NO LA B FOUND SCRIBED HDL 45 40 - 60 TXP NO L AB FOUND SCRIBED LDL 61 <130 TXP NO L AB FOUND SCRIBED Triglycerides 293(A) 0 - 150 TXP NO LAB FOUND Blood 02/25/2024 Result [facility] Provider LAB BLOOD ORDERABLES Aida l Result Performing Organization Address [facility] de Phone Number TXP NO LAB FOUND * (ABNORMAL) Tacrolimus level trough (01/25/2024) Pathologist [facility] SCRIBED Tacrolimus, trough 3.7(A) 5 - 20 TXP NO LAB FOUND Blood 01/25/2024 Result [facility] Provider MD LAB BLOOD ORDERABLES Edit ed Result - Final Performing Organization Address [facility] de Phone Number TXP NO LAB FOUND [...] k/cumm TXP NO LAB FOUND Blood 01/25/2024 Result [facility] Historical Provider MD LAB BLOOD ORDERABLES Edit ed Result - Final TXP NO LAB FOUND * (ABNORMAL) Protein / creatinine ratio, urine, random (01/25/2024) SCRIBED Protein, Urine 64.4(A) 0 - 11.9 TXP NO LAB FOUND SCRIBED Creatinine, Urine 81.61 40 - 278 TXP NO LAB FOUND SCRIBED Protein/Creat Ratio 0.79(A) 0 - 0.20 TXP NO LAB FOUND Urine 01/25/2024 [facility] Provider LAB URINE ORDERABLES Aida l Result Performing Organization Address [facility]/ZIP Co de Phone Number TXP NO [...] NO LAB FOUND SCRIBED eGFR in NonAfrican Moldovan 0 0 TXP NO LAB FOUND SCRIBED Urea Nitrogen (BUN) 24(A) 7 - 18 mg/dl TXP NO LAB FOUND SCRIBED eGFR in 56 >60 TXP NO LAB FOUND Blood 01/25/2024 Result [facility] Historical Provider MD LAB BLOOD ORDERABLES Edit ed Result - Final Performing Organization Address [facility] de Phone Number TXP NO LAB FOUND * (ABNORMAL) Tacrolimus level trough (12/28/2023) SCRIBED Tacrolimus, trough 2.3(A) 5 - 20 TXP NO LAB FOUND Blood 12/28/2023 Result [facility] Historical Provider LAB BLOOD ORDERABLES Edit ed Result - Final Performing Organization Address [facility] de Phone Number TXP NO LAB FOUND [...] TXP NO LAB FOUND Blood 12/28/2023 Result [facility] Historical Provider LAB BLOOD ORDERABLES Aida l Result Performing Organization Address [facility] de Phone Number TXP NO LAB FOUND * (ABNORMAL) Protein / creatinine ratio, urine, random (12/28/2023) SCRIBED Protein, Urine 83.1(A) 0 - 11.9 TXP NO LAB FOUND SCRIBED Creatinine, Urine 97.43 40 - 278 TXP NO LAB FOUND SCRIBED Protein/Creat Ratio 0.85 n/a TXP NO LAB FOUND Urine 12/28/2023 Historical Provider LAB URINE ORDERABLES Edit ed Result - Final Performing Organization Address [facility] de Phone Number TXP NO LAB FOUND [...] NO LAB FOUND SCRIBED eGFR in NonAfrican Moldovan 55 >=60 TXP NO LAB FOUND SCRIBED Urea Nitrogen (BUN) 29(A) 7 - 18 mg/dl TXP NO LAB FOUND Blood 12/28/2023 Historical Provider LAB BLOOD ORDERABLES Edit ed Result - Final Performing Organization Address [facility] de Phone Number TXP NO LAB FOUND [...] MD LAB BLOOD ORDERABLES Final R esult [facility] [place] [address] * Immunoglobulin free light chains (12/15/2023 10:52 AM CDT) Pathologist [facility] [place]/Lambda ratio [facility] 1.13 0.26 - 1.65 Comment: Interpretive Data The Binding Site FreeLite assay procedure was used. Results from different manufacturers or methods may not be comparable. Serial testing should be performed using the same methods and instrumentation. Current Interpretive Data was last revised on 2023. [place] free light chain [facility] 1.63 0.33 - 1.94 mg/dL NICHOLSA [facility] Comment: Interpretive Data The Binding Site FreeLite assay procedure was used. Results from different manufacturers or methods may not be comparable. Serial testing should be performed using the same methods and instrumentation. Current Interpretive Data was last revised on 2023. Lambda free light chain [facility] 1.44 0.57 - 2.63 mg/dL [facility] Comment: Interpretive Data The Binding Site FreeLite assay procedure was used. Results from different manufacturers or methods may not be comparable. Serial testing should be performed using the same methods and instrumentation. Current Interpretive Data was last revised on 2023. Blood 12/15/2023 10:5 2 AM CDT 12/15/2023 11:25 AM CDT Felipe Foss MD LAB BLOOD ORDERABLES Final R esult Performing Organization Address [facility] Co de Phone Number [facility] [place] [address] * Protein electrophoresis with reflex, serum (12/15/2023 10:52 AM CDT) Pathologist [facility] Protein, sr 7.2 6.2 - 8.2 g/dL Albumin 4.7 3.2 - 5.0 g/dL [facility] Alpha-1 globulin 0.3 0.2 - 0.4 g/dL [facility] Alpha-2 globulin 0.7 0.5 - 1.0 g/dL [facility] Beta-1 globulin 0.4 0.3 - 0.6 g/dL [facility] Beta-2 globulin 0.3 0.2 - 0.6 g/dL [facility] Gamma globulin 0.8 0.5 - 1.7 g/dL [facility] SPEP interp Please see comment [facility] Comment: No apparent monoclonal peak Electrophoretic pattern appears similar to previous sample 08/26/23 Reviewed and signed by Varghese Curtis MD, PhD 12/16/2023 Blood 12/15/2023 10:5 2 AM CDT 12/15/2023 11:25 AM CDT Felipe Foss MD LAB BLOOD ORDERABLES Final R esult Performing Organization Address [facility] Co de Phone Number [facility] [place] [address] * (ABNORMAL) Comprehensive metabolic panel (12/15/2023 10:52 AM CDT) Sodium 141 135 - 145 mmol/L Potassium, pl 3.4 3.3 - 4.9 mmol/L [facility] Chloride 105 97 - 110 mmol/L [facility] CO2 27 22 - 32 mmol/L [facility] Anion gap 9 2 - 15 mmol/L [facility] BUN 33(H) 6 - 25 mg/dL [facility] Creatinine 1.58(H) 0.80 - 1.30 mg/dL [facility] Glucose 170 70 - 199 mg/dL [facility] Comment: Interpretive Data Fasting glucose >/= [...] 2022. Calcium 10.3 8.5 - 10.3 mg/dL [facility] Bilirubin, total 2.7(H) 0.1 - 1.2 mg/dL [facility] Protein, pl 7.3 6.5 - 8.5 g/dL [facility] Albumin 4.7 3.5 - 5.0 g/dL [facility] Alk phos 107 40 - 130 Units/L [facility] ALT 41 7 - 55 Units/L [facility] AST 32 10 - 50 Units/L [facility] Blood 12/15/2023 10:5 2 AM CDT 12/15/2023 10:52 AM CDT us Felipe Foss MD LAB BLOOD ORDERABLES Final R esult [facility] [place] [address] * (ABNORMAL) Differential, auto (12/15/2023 10:45 AM CDT) Neutrophil abs 7.2(H) 1.5 - 6.5 K/cumm Comment:Testing performed by : [facility], [address] [place], [place] [phone] Lymphocyte abs 0.7(L) 0.8 - 3.3 K/cumm [facility] Comment:Testing performed by : [facility], [address] [place] [phone] Monocyte abs 0.4 0.2 - 0.8 K/cumm [facility] Comment:Testing performed by : [facility], [address] [place] [phone] Eosinophil abs 0.1 0.0 - 0.5 K/cumm [facility] Comment:Testing performed by : [facility], [address] [place], [place] [id number] Basophil abs 0.0 0.0 - 0.1 K/cumm [facility] Comment:Testing performed by : [facility], [address] [place], [place] [phone] Neutrophil pct 85.4 % [facility] Comment: Interpretive Data Percent cell count reference ranges are not reported, since discordance with absolute values may lead to misinterpretation of CBC data. Current Interpretive Data was last revised on 2017. Testing performed by: [facility], [address] [place] [phone] Lymphocyte pct 8.5 % [facility] Comment: Interpretive Data Percent cell count reference ranges are not reported, since discordance with absolute values may lead to misinterpretation of CBC data. Current Interpretive Data was last revised on 2017. Testing performed by: [facility], [address] [place] [phone] Monocyte pct 4.9 % [facility] Comment: Interpretive Data Percent cell count reference ranges are not reported, since discordance with absolute values may lead to misinterpretation of CBC data. Current Interpretive Data was last revised on 2017. Testing performed by: [facility], [address] [place] [phone] Eosinophil pct 0.8 % [facility] Comment: Interpretive Data Percent cell count reference ranges are not reported, since discordance with absolute values may lead to misinterpretation of CBC data. Current Interpretive Data was last revised on 2017. Testing performed by: [facility], [address] [place] [address] Basophil pct 0.4 % [facility] Comment: Interpretive Data Percent cell count reference ranges are not reported, since discordance with absolute values may lead to misinterpretation of CBC data. Current Interpretive Data was last revised on 2017. Testing performed by: [facility], [address] [place] [address] Blood 12/15/2023 10:4 5 AM CDT 12/15/2023 10:54 AM CDT us Felipe Foss MD LAB BLOOD ORDERABLES Final R esult [facility] [place] [address] * (ABNORMAL) CBC with auto differential (12/15/2023 10:45 AM CDT) WBC 8.4 3.8 - 9.9 K/cumm Comment:Testing performed by : [facility], [address] [place] [address] Hgb 17.6(H) 13.0 - 17.5 g/dL [facility] Comment:Testing performed by : [facility], [address] [place] [address] Hct 53.3(H) 38.9 - 50.3 % [facility] Comment:Testing performed by : [facility], [address] [place] [address] Plt 125(L) 150 - 400 K/cumm [facility] Comment:Testing performed by : [facility], [address] [place] [address] MPV 8.9 6.8 - 10.4 fL [facility] Comment:Testing performed by : [facility], [address] [place], [place] [phone] RBC 5.78 4.30 - 5.80 M/cumm [facility] Comment:Testing performed by : [facility], [address] [place], [place] [phone] MCV 92.3 81.3 - 96.4 fL [facility] Comment:Testing performed by : [facility], [address] [place], [place] [phone] MCH 30.5 27.1 - 33.3 pg [facility] Comment:Testing performed by : [facility], [address] [place], [place] [phone] MCHC 33.1 32.3 - 35.7 g/dL [facility] Comment:Testing performed by : [facility], [address] [place], [place] [phone] RDW CV 14.3 11.1 - 14.9 % [facility] Comment:Testing performed by : [facility], [address] [place], [place] [phone] NRBC abs 0.00 0.00 - 0.01 K/cumm [facility] Comment:Testing performed by : [facility], [address] [place], [place] [phone] Blood 12/15/2023 10:4 5 AM CDT 12/15/2023 10:54 AM CDT Narrative [facility] - 12/15/2023 10:59 AM CDT Please obtain labs in June 2023 Please fax results to hematology Dr Felipe Foss fax# [phone] us Felipe Foss MD LAB BLOOD ORDERABLES Final R esult [facility] [place] [address] * POCT glucose (12/15/2023 9:12 AM CDT) [facility] Glucose Blood, POC 138 mg/dL Blood 12/15/2023 9:12 AM CDT us Holly Cordon LUGGAGE REPAIRER POINT OF CARE TEST ORDERA BLES Final Result * (ABNORMAL) TSH reflex to free T4 (10/12/2022 10:23 AM CDT) Pathologist [facility] TSH 7.31(H) 0.30 - 4.20 mcIUnit/mL [facility] Blood 10/12/2022 10:2 3 AM CDT 10/12/2022 10:40 AM CDT us Milli Sims PA LAB BLOOD ORDERABLES Aida l Result Performing Organization Address City/State/[facility] Co de Phone Number [facility] [place] [address] * PSA screen (09/24/2022 4:48 PM CDT) Pathologist [facility] PSA-Total 0.54 <=5.40 ng/mL [facility] Comment: Interpretive Data ?AGE ? SEX [...] 4:48 PM CDT 09/24/2022 4:57 PM CDT Malaika Victoria MD LAB BLOOD ORDERABLES Final Result [facility] [place] [address] * Hepatitis C antibody (05/30/2019 1:17 PM CDT) Hep C Ab Nonreactive Nonreactive [facility] Blood specimen (specimen) 05/30/2019 1:17 PM CDT 05/30/2019 1:38 PM CDT Abi Fitzpatrick NP LAB MICROBIOLOGY - GENERAL ORDERABLES Edited Result - Final Performing Organization Address City/[facility] Co de Phone Number [facility] [place] [address] from Last 3 Months or Most Recently Relevant to Health Maintenance Insurance [facility] MEDICARE [facility] AETNA [facility] Advance Directives For more information, please contact: [phone] Documents on File Type Date Recorded Patient Software Application Tester Expl anation ADVANCE DIRECTIVE 04/07/2019 2:18 PM Becky Urena camron [email or web address] * Full Code (Latest Code [...] 8:43 AM 05/15/2021 12:44 PM Care Teams Commercial Installer Relationship Specialty Start Date End Date Rigo Alvarenga MD PCP - General 03/31/17 Rand Collins, RN [address] [facility] [address] [place] [address] Stenocaptioner 05/31/19 Felipe Foss MD [address] [place] [address] Medical Oncologist/Logistics Team Lead Hematology and Oncology 01/04/23
--- OUTSIDE RECORDS SUMMARY | 2024-03-14 15:29 | XMS_ITS ---
Author Organization [facility] Address [address] [place] [address] Care Team Providers Care Signal Inspector Name Role Phone Rigo Alvarenga MD Primary Care Provider [phone] Rand Collins RN Unavailable [phone] Felipe Foss MD Unavailable [phone] Dialysis Access Sites Type Status Location Placement Date Removal Da te AV graft Active Left Upper Arm - Anterior 11/01/2017 Peritoneal Dialysis Catheter Inactive 12/17/2015 12/03/2017 Procedures Procedure Name Priority Date/Time Associated Diagnosis [...] having achieved remission (CMS/HCC) (HCC) POCT GLUCOSE 35171 Routine 12/15/2023 9: 12 AM CDT Type 2 diabetes mellitus with hyperglycemia, with long-term current use of insulin (HCC) THYROID FUNCTION CASCADE Routine 10/12/2022 10:23 AM CDT Neuropathy (CMS/HCC) PSA SCREEN STAT 09/24/2022 4:48 PM CDT HEPATITIS C ANTIBODY Routine 05/30/2019 1:17 PM CDT from Last 3 Months or Most Recently Relevant to Health Maintenance Allergies Active Allergy Reactions Criticality Noted Date [...] mellitus with other specified complication, unspecified whether oil heaterman insulin use (HCC) Use to check blood [...] mellitus with other specified complication, unspecified whether nursing home insulin use (HCC) Use to read missy [...] mouth every morning Active FreeStyle Missy 3 [place] misc as directed Sugars have been way [...] mellitus with other specified complication, unspecified whether oil heaterman insulin use ([facility]) Inject 1 mg under the skin as needed (as needed for severe hypoglycemia) 0.4 mL 6 06/07/19 24 Active montelukast (SINGULAIR) 10 mg tablet 06/10/19 24 Active OneTouch Verio test strips stripIndication s:Type 2 diabetes mellitus with other specified complication, unspecified whether nursing home insulin use ([facility]) CHECK BLOOD SUGAR 3 TIMES A DAY [...] mellitus with other specified complication, unspecified whether oil heaterman insulin use ([facility]) USE TO CHECK BLOOD SUGAR 3 TIMES PER DAY 100 each 11 09/08/19 24 Active gabapentin (NEURONTIN) 300 mg [...] mellitus with other specified complication, unspecified whether nursing home insulin use ([facility]) Use to check blood sugar before meals [...] mellitus with other specified complication, unspecified whether nursing home insulin use ([facility]) TAKE 1 TABLET BY MOUTH EVERY DAY 90 tablet 3 02/14/20 24 Active tirzepatide (Mounjaro) 7.5 mg/0.5 mL pen injectorIndicat ions:type 2 diabetes mellitus Inject 7.5 mg under the skin once a week 2 mL 02/17/19 25 Active empagliflozin (JARDIANCE) 10 mg tabletIndicatio ns:Type 2 diabetes mellitus with other specified complication, unspecified whether oil heaterman insulin use (HCC) Take 1 tablet (10 mg total) by mouth daily 30 tablet 06/02/192023 Discontinued tirzepatide (Mounjaro) 7.5 mg/0.5 mL pen injector Inject 7.5 mg under the skin once a week 2 mL 01/27/202024 Discontinued(A lternate therapy) Active Problems Patient Care Coordination No te Formatting of this note migh t be different from the original. Per Dr. Limon, FK goal 2-4 d/t receiving treatment for MM on Envarsus 1mg Discharge Preferences: Lab: [facility] , [phone] standing orders q Monthly, FK,UPE, q3 HgbA1C Exp. 03/30/24 Home Health: [facility] /[phone] Local Pharmacy: [facility] [place] [facility]: [facility] Problem Noted Date Diagnosed [...] cardiology follow up. Discussed plan with attending purchasing director. HEATHER on CPAP 09/25/2022 Assessment & Plan [...] further with Dr. Yu. Will proceed with [place] to better assess volume status and pulmonary [...] (04/30/2022): Added automatically from request for surgery [id number] Encounter for preadmission testing 04/24/2022 LAYO (acute [...] gluconate, insulin, and kayaxelate -upon arrival to [facility], K 6.0, WBK 5.6 no additional therapies given -Repeat K and WBK on arrival, manage as appropriate -likely transfer to floor later this morning -renal transplant consult in AM -hold bactrim for time being as could be contributing to hyperkalemia, resume pending transplant nephrology recs ([facility] medication) BPH (benign prostatic hyperplasia) 06/20/2019 Assessment & Plan (06/20/2019 4:45 AM CDT): Continue home flomax Kidney transplant recipient 05/31/2019 Assessment & Plan (09/21/2022 10:01 AM CDT): -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 Assessment & Plan (05/04/2022 8:32 AM CDT): -intermediate use of immunosuppressants and steroids complicates diabetes [...] function 05/31/2019 ESRD (end stage renal disease) ([facility]) 020 Overview (05/30/2019): Added automatically from request for surgery [id number] Pruritus 08/10/2018 ESRD (end stage renal disease) [...] aftercare following kidney transpl ant 11/17/2010 Positive LILIBEHT (antinuclear antibody) 11/17/2010 Type 2 diabetes mellitus [...] 11/06/2009 Systemic lupus erythematosus (SLE) in adult ([facility] /[facility]) 11/06/2009 Immunizations Name Administration Dates Next Due Influenza, [...] week 09/29/2022 How often do you attend [facility] or adventism services? More than 4 times per year 09/29/2022 Do you belong to any clubs o r organizations such as adventist groups, unions, fraternal or athletic groups, or [...] place to sleep or slept in a care home (including now)? No 09/29/2022 Personal Safety Answer Date Recorded Have you ever been in or are you currently in a harmful physical or emotional relationship or is someone making you feel afraid or unsafe? Denies 05/03/2023 Sex and Gender Information Value Date Recorded Sex Assigned at Not on file Legal Sex Male 12:49 PM MANAGER POOL Gender Identity Not on file Sexual Orientation Not on file Last Filed Vital Signs Vital Sign Reading Time Taken Comments Blood Pressure 123/78 01/06/2024 12:56 PM MANAGER POOL Pulse 68 01/06/2024 12:56 PM MANAGER POOL Temperature 36.3 ??C (97.4 ??F) 12/15/2023 1 1:24 AM CDT Respiratory Rate 18 12/15/2023 11:2 4 AM CDT Oxygen Saturation 98% 01/06/2024 12: 56 PM MANAGER POOL Inhaled Oxygen Concentration - - Weight 83.4 kg (183 lb 12.8 oz) 024 12:56 PM MANAGER POOL Height 170.2 cm (5' 7 ) 01/06/2024 12:5 6 PM MANAGER POOL Body Mass Index 28.79 01/06/2024 12:56 PM MANAGER POOL Results * (ABNORMAL) Tacrolimus level trough (02/25/2024) SCRIBED Tacrolimus, trough 2.8(A) 5 - 20 TXP NO LAB FOUND Blood 02/25/2024 us Historical Provider LAB BLOOD ORDERABLES Aida l Result TXP NO LAB FOUND * CBC with [...] k/cumm TXP NO LAB FOUND Blood 02/25/2024 Historical Provider MD LAB BLOOD ORDERABLES Edit ed Result - Final Performing Organization Address [facility] de Phone Number TXP NO LAB FOUND * (ABNORMAL) Albumin Creatinine Ratio, Urine (02/25/2024) SCRIBED Creatinine, Urine 102.95 40 - 278 TXP NO LAB FOUND SCRIBED Microalbumin >400.00 n/a TXP NO LAB FOUND SCRIBED Microalb/Creat Ratio 388.5(A) 0 - 30 TXP NO LAB FOUND Urine 02/25/2024 Result [facility] Provider MD LAB URINE ORDERABLES Edit ed Result - Final Performing Organization Address [facility] de Phone Number TXP NO LAB FOUND * Hemoglobin A1c (02/25/2024) SCRIBED Hemoglobin A1c 7.7 <57 % TXP NO LAB FOUND Blood 02/25/2024 Result [facility] Provider MD LAB BLOOD ORDERABLES Aida l Result Performing Organization Address [facility] de Phone Number TXP NO LAB FOUND * (ABNORMAL) Hepatic [...] Units/L TXP NO LAB FOUND Blood 02/25/2024 Result [facility] Provider LAB BLOOD ORDERABLES Aida l Result Performing Organization Address [facility] de Phone Number TXP NO LAB [...] NO LAB FOUND SCRIBED eGFR in NonAfrican English 49 >60 TXP NO LAB FOUND SCRIBED Urea Nitrogen (BUN) 33(A) 7 - 18 mg/dl TXP NO LAB FOUND Blood 02/25/2024 Result [facility] Provider LAB BLOOD ORDERABLES Aida l Result Performing Organization Address [facility] Co de Phone Number TXP NO LAB FOUND * (ABNORMAL) Lipid panel (02/25/2024) SCRIBED Cholesterol, Total 165 0 - 200 TXP NO LA B FOUND SCRIBED HDL 45 40 - 60 TXP NO L AB FOUND SCRIBED LDL 61 <130 TXP NO L AB FOUND SCRIBED Triglycerides 293(A) 0 - 150 TXP NO LAB FOUND Blood 02/25/2024 Result [facility] Provider LAB BLOOD ORDERABLES Aida l Result Performing Organization Address [facility] de Phone Number TXP NO LAB FOUND * (ABNORMAL) Tacrolimus level trough (01/25/2024) SCRIBED Tacrolimus, trough 3.7(A) 5 - 20 TXP NO LAB FOUND Blood 01/25/2024 Result [facility] Historical Provider LAB BLOOD ORDERABLES Edit ed Result - Final Performing Organization Address [facility] de Phone Number TXP NO LAB FOUND [...] TXP NO LAB FOUND Blood 01/25/2024 Result [facility] Provider LAB BLOOD ORDERABLES Edit ed Result - Final Performing Organization Address [facility] de Phone Number TXP NO LAB FOUND * (ABNORMAL) Protein / creatinine ratio, urine, random (01/25/2024) SCRIBED Protein, Urine 64.4(A) 0 - 11.9 TXP NO LAB FOUND SCRIBED Creatinine, Urine 81.61 40 - 278 TXP NO LAB FOUND SCRIBED Protein/Creat Ratio 0.79(A) 0 - 0.20 TXP NO LAB FOUND Urine 01/25/2024 Result [facility] Historical Provider LAB URINE ORDERABLES Aida l Result Performing Organization Address [facility] de Phone Number TXP NO LAB [...] NO LAB FOUND SCRIBED eGFR in NonAfrican English 0 0 TXP NO LAB FOUND SCRIBED Urea Nitrogen (BUN) 24(A) 7 - 18 mg/dl TXP NO LAB FOUND SCRIBED eGFR in 56 >60 TXP NO LAB FOUND Blood 01/25/2024 Historical Provider LAB BLOOD ORDERABLES Edit ed Result - Final Performing Organization Address [facility] Co de Phone Number TXP NO LAB FOUND * (ABNORMAL) Tacrolimus level trough (12/28/2023) Pathologist [facility] SCRIBED Tacrolimus, trough 2.3(A) 5 - 20 TXP NO LAB FOUND Blood 12/28/2023 Historical Provider LAB BLOOD ORDERABLES Edit ed Result - Final TXP NO LAB FOUND * (ABNORMAL) CBC [...] k/cumm TXP NO LAB FOUND Blood 12/28/2023 [facility] Provider MD LAB BLOOD ORDERABLES Aida l Result Performing Organization Address [facility] de Phone Number TXP NO LAB FOUND * (ABNORMAL) Protein / creatinine ratio, urine, random (12/28/2023) SCRIBED Protein, Urine 83.1(A) 0 - 11.9 TXP NO LAB FOUND SCRIBED Creatinine, Urine 97.43 40 - 278 TXP NO LAB FOUND SCRIBED Protein/Creat Ratio 0.85 n/a TXP NO LAB FOUND Urine 12/28/2023 [facility] Provider LAB URINE ORDERABLES Edit ed Result - Final Performing Organization Address [facility] de Phone Number TXP NO LAB [...] NO LAB FOUND SCRIBED eGFR in NonAfrican English 55 >=60 TXP NO LAB FOUND SCRIBED Urea Nitrogen (BUN) 29(A) 7 - 18 mg/dl TXP NO LAB FOUND Blood 12/28/2023 Historical Provider LAB BLOOD ORDERABLES Edit ed Result - Final TXP NO LAB FOUND * (ABNORMAL) eGFR [...] ORDERABLES Final R esult Performing Organization Address [facility] de Phone Number [facility] [place] [address] * Immunoglobulin free light chains (12/15/2023 10:52 AM CDT) Pathologist [facility] Odin/Lambda ratio [facility] 1.13 0.26 - 1.65 Comment: Interpretive Data The Binding Site FreeLite assay procedure was used. Results from different manufacturers or methods may not be comparable. Serial testing should be performed using the same methods and instrumentation. Current Interpretive Data was last revised on 2023. Odin free light chain [facility] 1.63 0.33 - 1.94 mg/dL [facility] Comment: Interpretive Data The Binding Site FreeLite assay procedure was used. Results from different manufacturers or methods may not be comparable. Serial testing should be performed using the same methods and instrumentation. Current Interpretive Data was last revised on 2023. Lambda free light chain [facility] 1.44 0.57 - 2.63 mg/dL [facility] Comment: Interpretive Data The Binding Site FreeLite assay procedure was used. Results from different manufacturers or methods may not be comparable. Serial testing should be performed using the same methods and instrumentation. Current Interpretive Data was last revised on 2023. Blood 12/15/2023 10:5 2 AM CDT 12/15/2023 11:25 AM CDT Felipe Foss MD LAB BLOOD ORDERABLES Final R esult Performing Organization Address City/[facility]/ZIP Co de Phone Number [facility] Department [place] [address] * Protein electrophoresis with reflex, serum (12/15/2023 10:52 AM CDT) Pathologist [facility] Protein, sr 7.2 6.2 - 8.2 g/dL Albumin 4.7 3.2 - 5.0 g/dL [facility] Alpha-1 globulin 0.3 0.2 - 0.4 g/dL [facility] Alpha-2 globulin 0.7 0.5 - 1.0 g/dL [facility] Beta-1 globulin 0.4 0.3 - 0.6 g/dL [facility] Beta-2 globulin 0.3 0.2 - 0.6 g/dL [facility] Gamma globulin 0.8 0.5 - 1.7 g/dL [facility] SPEP interp Please see comment [facility] Comment: No apparent monoclonal peak Electrophoretic pattern appears similar to previous sample 08/26/23 Reviewed and signed by Varghese Curtis MD, PhD 12/16/2023 Blood 12/15/2023 10:5 2 AM CDT 12/15/2023 11:25 AM CDT us Felipe Foss MD LAB BLOOD ORDERABLES Final R esult [facility] Department [place] [address] * (ABNORMAL) Comprehensive metabolic panel (12/15/2023 10:52 AM CDT) Sodium 141 135 - 145 mmol/L Potassium, pl 3.4 3.3 - 4.9 mmol/L [facility] Chloride 105 97 - 110 mmol/L [facility] CO2 27 22 - 32 mmol/L [facility] Anion gap 9 2 - 15 mmol/L [facility] BUN 33(H) 6 - 25 mg/dL [facility] Creatinine 1.58(H) 0.80 - 1.30 mg/dL [facility] Glucose 170 70 - 199 mg/dL [facility] Comment: Interpretive Data Fasting glucose >/= 126 [...] classification and Diagnosis of Diabetes Diabetes Care 2022; 46: S19-S40. Current interpretive data was last revised 2022. Calcium 10.3 8.5 - 10.3 mg/dL [facility] Bilirubin, total 2.7(H) 0.1 - 1.2 mg/dL [facility] Protein, pl 7.3 6.5 - 8.5 g/dL [facility] Albumin 4.7 3.5 - 5.0 g/dL [facility] Alk phos 107 40 - 130 Units/L [facility] ALT 41 7 - 55 Units/L [facility] AST 32 10 - 50 Units/L [facility] Blood 12/15/2023 10:5 2 AM CDT 12/15/2023 10:52 AM CDT us Felipe Foss MD LAB BLOOD ORDERABLES Final R esult [facility] Department of Laboratories [place] [phone] * (ABNORMAL) Differential, auto (12/15/2023 10:45 AM CDT) Neutrophil abs 7.2(H) 1.5 - 6.5 K/cumm Comment:Testing performed by : [facility], [address] [place] [address] Lymphocyte abs 0.7(L) 0.8 - 3.3 K/cumm [facility] Comment:Testing performed by : [facility], [address] [place] [address] Monocyte abs 0.4 0.2 - 0.8 K/cumm [facility] Comment:Testing performed by : [facility], [address] [place] [address] Eosinophil abs 0.1 0.0 - 0.5 K/cumm [facility] Comment:Testing performed by : [facility], [address] [place] [address] Basophil abs 0.0 0.0 - 0.1 K/cumm [facility] Comment:Testing performed by : [facility], [address] [place] [phone] Neutrophil pct 85.4 % [facility] Comment: Interpretive Data Percent cell count reference ranges are not reported, since discordance with absolute values may lead to misinterpretation of CBC data. Current Interpretive Data was last revised on 2017. Testing performed by: [facility], [address] [place] [phone] Lymphocyte pct 8.5 % [facility] Comment: Interpretive Data Percent cell count reference ranges are not reported, since discordance with absolute values may lead to misinterpretation of CBC data. Current Interpretive Data was last revised on 2017. Testing performed by: [facility], [address] [place] [phone] Monocyte pct 4.9 % [facility] Comment: Interpretive Data Percent cell count reference ranges are not reported, since discordance with absolute values may lead to misinterpretation of CBC data. Current Interpretive Data was last revised on 2017. Testing performed by: [facility], [address] [place] [phone] Eosinophil pct 0.8 % [facility] Comment: Interpretive Data Percent cell count reference ranges are not reported, since discordance with absolute values may lead to misinterpretation of CBC data. Current Interpretive Data was last revised on 2017. Testing performed by: [facility], [address] [place] [phone] Basophil pct 0.4 % [facility] Comment: Interpretive Data Percent cell count reference ranges are not reported, since discordance with absolute values may lead to misinterpretation of CBC data. Current Interpretive Data was last revised on 2017. Testing performed by: [facility], [address] [place] [phone] Blood 12/15/2023 10:4 5 AM CDT 12/15/2023 10:54 AM CDT us Felipe Foss MD LAB BLOOD ORDERABLES Final R esult [facility] Department [place] [address] * (ABNORMAL) CBC with auto differential (12/15/2023 10:45 AM CDT) WBC 8.4 3.8 - 9.9 K/cumm Comment:Testing performed by : [facility], [address] [place] [address] Hgb 17.6(H) 13.0 - 17.5 g/dL [facility] Comment:Testing performed by : [facility], [address] [place] [address] Hct 53.3(H) 38.9 - 50.3 % [facility] Comment:Testing performed by : [facility], [address] [place] [address] Plt 125(L) 150 - 400 K/cumm [facility] Comment:Testing performed by : [facility], [address] [place] [address] MPV 8.9 6.8 - 10.4 fL [facility] Comment:Testing performed by : [facility], [address] [place] [address] RBC 5.78 4.30 - 5.80 M/cumm [facility] Comment:Testing performed by : [facility], [address] [place] [address] MCV 92.3 81.3 - 96.4 fL [facility] Comment:Testing performed by : [facility], [address] [place] [address] MCH 30.5 27.1 - 33.3 pg [facility] Comment:Testing performed by : [facility], [address] [place] [address] MCHC 33.1 32.3 - 35.7 g/dL [facility] Comment:Testing performed by : [facility], [address] [place] [address] RDW CV 14.3 11.1 - 14.9 % [facility] Comment:Testing performed by : [facility], [address] [place] [phone] NRBC abs 0.00 0.00 - 0.01 K/cumm [facility] Comment:Testing performed by : [facility], [address] [place] [phone] Blood 12/15/2023 10:4 5 AM CDT 12/15/2023 10:54 AM CDT Narrative [facility] - 12/15/2023 10:59 AM CDT Please obtain labs in June 2023 Please fax results to hematology Dr Felipe Foss fax# [phone] Felipe Foss MD LAB BLOOD ORDERABLES Final R esult Performing Organization Address [facility] Co de Phone Number [facility] Department [place] [address] * POCT glucose (12/15/2023 9:12 AM CDT) Glucose Blood, POC 138 mg/dL Blood 12/15/2023 9:12 AM CDT Result [facility] Holly Cordon NP POINT OF CARE TEST ORDERA BLES Final Result * (ABNORMAL) TSH reflex to free T4 (10/12/2022 10:23 AM CDT) TSH 7.31(H) 0.30 - 4.20 mcIUnit/mL [facility] Blood 10/12/2022 10:2 3 AM CDT 10/12/2022 10:40 AM CDT Result [facility] Milli GEREN LAB BLOOD ORDERABLES Aida l Result Performing Organization Address [facility]/ZIP Co de Phone Number [facility] Department [place] [address] * PSA screen (09/24/2022 4:48 PM CDT) PSA-Total 0.54 <=5.40 ng/mL [facility] Comment: Interpretive Data ?AGE ? SEX ?REFERENCE [...] [place] MD LAB BLOOD ORDERABLES Final Result Performing Organization Address [facility] de Phone Number [facility] Department [place] [address] * Hepatitis C antibody (05/30/2019 1:17 PM CDT) Pathologist [facility] Hep C Ab Nonreactive Nonreactive [facility] Blood specimen (specimen) 05/30/2019 1:17 PM CDT 05/30/2019 1:38 PM CDT Abi Fitzpatrick NP LAB MICROBIOLOGY - GENERAL ORDERABLES Edited Result - Final Performing Organization Address [facility]/State/ZIP Co de Phone Number [facility] Department [place] [address] from Last 3 Months or Most Recently Relevant to Health Maintenance
--- OUTSIDE RECORDS SUMMARY | 2024-03-14 15:30 | XMS_ITS ---
Author Organization [facility] Address [address] [place] [address] Care Team Providers Care Health And Safety Trainer Name Role Phone Rigo Alvarenga MD Primary Care Provider [phone] Rand Collins RN Unavailable [phone] Felipe Foss MD Unavailable [phone] Active Problems Patient Care Coordination No te Formatting of this note migh t be different from the original. Per Dr. Limon, GEORGE goal 2-4 d/t receiving treatment for MM on Envarsus 1mg Discharge Preferences: Lab: [facility] , [phone] standing orders q Monthly, FK,UPE, q3 HgbA1C Exp. 03/30/24 Home Health: [facility] /[phone] Local Pharmacy: [facility] in [place] Specialty Pharmacy: [facility] Problem Noted Date Diagnosed [...] cardiology follow up. Discussed plan with attending stretching machine tender frame. HEATHER on CPAP 09/25/2022 Assessment & Plan [...] further with Dr. Yu. Will proceed with [facility] to better assess volume status and [...] (04/30/2022): Added automatically from request for surgery [id number] Encounter for preadmission testing 04/24/2022 LAYO (acute [...] gluconate, insulin, and kayaxelate -upon arrival to [facility] ED, K 6.0, WBK 5.6 no additional therapies given -Repeat K and WBK on arrival, manage as appropriate -likely transfer to floor later this morning -renal transplant consult in AM -hold bactrim for time being as could be contributing to hyperkalemia, resume pending transplant nephrology recs (F medication) BPH (benign prostatic hyperplasia) 06/20/2019 Assessment & Plan (06/20/2019 4:45 AM CDT): Continue home flomax Kidney transplant recipient 05/31/2019 Assessment & Plan (09/21/2022 10:01 AM CDT): -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 Assessment & Plan (05/04/2022 8:32 AM CDT): -senior living use of immunosuppressants and steroids complicates diabetes [...] function 05/31/2019 ESRD (end stage renal disease) ([facility] 020 Overview (05/30/2019): Added automatically from request for surgery [id number] Pruritus 08/10/2018 ESRD (end stage renal disease) [...] 11/06/2009 Systemic lupus erythematosus (SLE) in adult ([facility] /H[facility]) 11/06/2009 Current Oncology Plans Bortezomib Every Other Week 28 Day Cycles - Myeloma* Plan Start Date:08/31/2023 Plan Provider:Felipe Foss MD Linked Problems Multiple myeloma not having achieved remission ([facility]) ([facility]) Treatment Medications Current Day (Day 1 , Cycle 4 - Planned for 12/01/2023) Next Day (Day 15, Cycle 4 - Planned for 12/15/2023) bortezomib (VELCADE) bortezomib (VELCADE ) subcutaneous syringe 2.625 mg bortezomib (VELCADE) subcutaneous syringe 2.625 mg Zoledronic Acid (ZOMETA) Infusion* Plan Start Date:02/24/2023 Plan Provider:Felipe Foss MD Linked Problems Multiple myeloma not having achieved remission ([facility]) ([facility]) Treatment Medications No medications scheduled. Past Plans Oncology Chemotherapy Treatment Plan Name Start Date Discontinue Date Treatment Medications Discontinue Reason Plan Provider Cycles Bortezomib / Lenalidomide / Dexamethasone PO 21 Day Cycles - Myeloma 3 08/31/2023 bortezomib (VELCADE) Therapy Complete Felipe Foss MD 4 of 4 cycles started Radiation Treatments * No radiation treatments are documented for this patient in [facility]. Treatments may have been administered in another system. Lifetime Dose Tracking * Chemical Lifetime Dose Automatic Entry Manual Entr y Air kerma at the reference point (Ka,r) 487.6 mGy 0 mGy 487.6 mGy DLP 2,366 mGycm 2,366 mGycm 0 mGycm Resolved Problems Problem Noted Date Diagnosed Date Resolved Date Hypotension 11/25/2022 08/26/2023 Elevated brain natriuretic p eptide (BNP) level 07/17/2022 08/26/2023 Diabetes mellitus 06/11/2021 10/07/2021 ESRD (end stage renal disease) [place] 11/18/2017 05/10/2018 Overview (11/18/2017): Added automatically from request for surgery [id number] Peritoneal dialysis catheter tunnel infection 10/28/19 18 09/12/2018 Overview (10/27/2017): Added automatically from request for surgery [id number] End-stage renal disease on h emodialysis ([facility] 10/07/2017 05/10/2018 Overview (10/07/2017): Added automatically from request for surgery [id number] Stage 4 chronic kidney disease ([facility]) 01/16/2015 05/10/2018 Encounter for monitoring tacrolimus therapy 11/17/2010 09/12/2018
--- OUTSIDE RECORDS SUMMARY | 2024-03-14 15:30 | XMS_ITS | Encounter Summary ---
Author Organization [facility] Healthcare Address [address] [place] [address] Care Team Providers Care Hand Filer Balance Wheel Name Role Phone Rigo Alvarenga MD Primary Care Provider [phone] Rand Collins RN Unavailable [phone] Felipe Foss MD Unavailable [phone] Encounter Details Date Type Department Care Team (Late st Contact Info) Description 10/16/2021 Telephone [facility] [address] [facility] [address] [place] [address] Rigo Alvarenga MD [address] [place] [address] Social History Tobacco Use Types Packs/Day Years Used Date Smoking Tobacco: Never Smokeless Tobacco: Never Alcohol Use Standard Drinks/Week Comments No 0 (1 standard drink = 0.6 oz pur e alcohol) Social Connection and Isolat ion Panel [NHANES] Answer Date Recorded In a typical week, how many times do you talk on the phone with family, friends, or neighbors? Three times a week 05/31/2019 How often do you get togethe r with friends or relatives? Three times a week 05/31/2019 How often do you attend chur ch or baptism services? More than 4 times per year 05/31/2019 Do you belong to any clubs o r organizations such as taoist groups, unions, fraternal or athletic groups, or school groups? Yes 05/31/2019 How often do you attend meet ings of the clubs or organizations you belong to? More than 4 times per year 05/31/2019 Are you , , di vorced, , never , or living with a partner? 05/31/2019 Overall Financial Resource Strain (CARDIA) Answe r Date Recorded How hard is it for you to pa y for the very basics like food, housing, medical care, and heating? Not hard at all 05/31/2019 PHQ-2 Answer Date Recorded PHQ-2 Total Score (If total score is 3 or more points, staff should administer the PHQ-9) 0 05/15/2021 Hunger Vital Sign Answer Date Recorded Within the past 12 months, y ou worried that your food would run out before you got the money to buy more. Never true 05/31/19 20 Within the past 12 months, t he food you bought just didn't last and you didn't have money to get more. Never true 05/31/2019 PRAPARE - Transportation Answer Date Re corded In the past 12 months, has l ack of transportation kept you from medical appointments or from getting medications? No 05/16 In the past 12 months, has l ack of transportation kept you from meetings, work, or from getting things needed for daily living? 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
--- OUTSIDE RECORDS SUMMARY | 2024-03-14 15:30 | XMS_ITS | Encounter Summary ---
Author Organization [facility] Address [address] [facility] [place] [address] Phone Care Team Providers Care Style Advisor Name Role Phone Rigo Alvarenga MD Primary Care Provider [phone] Rand Collins RN Unavailable [phone] Felipe Foss MD Unavailable [phone] Encounter Details Date Type Department Care Team (Latest Contact Info) Description 01/16/2021 Orders Only [facility] Scanning, Provider Social History Tobacco Use Types [...] often do you attend chur ch or druze services? More than 4 times per year [...] and heating? 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 Gender Identity Not on file Sexual Orientation Not on file documented as of this encounter Plan of Treatment Not on file documented as of this encounter Procedures Procedure Name Priority Date/Time Associated Diagnosis Comments CARDIOLOGY DOCUMENT SCAN 01/16/2021 documented in this encounter Results * CARDIOLOGY DOCUMENT SCAN (01/16/2021) Anatomical Region Laterality Modality Other us Provider Scanning CV CARDIAC SERVICES PROCEDURES Final Result documented in this encounter Visit Diagnoses Not on filedocumented in this encounter Care Teams Style Advisor Relationship Specialty Start Date End Date Rigo Alvarenga MD PCP - General 03/31/17 Rand Collins, FLORES [address] [place], [place] [id number] Master Craftsman 05/31/19 Felipe Foss MD [address] [place] [address] Medical Oncologist/Support Architect Hematology and Oncology 01/04/23 documented as of this encounter
--- OUTSIDE RECORDS SUMMARY | 2024-03-14 15:30 | XMS_ITS ---
Author Organization [facility] Address [address] [place] [address] Care Team Providers Care Oil Burner Mechanic Name Role Phone Rigo Alvarenga MD Primary Care Provider [phone] Rand Collins RN Unavailable [phone] Felipe Foss MD Unavailable [phone] Transplant Episode Kidney Recipient [facility] ([place], [place]) - 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) Donor Information Organ ABO Source Meets Risk Criteria HLA Match Mismatches Cross Match Left Kidney Transplanted O DCD No A: B: DR: Left Kidney Donor Serology Results Anti-CMV CMV IgG: Positive EBV IgG EBV VCA IgG: Positive Anti-HBcAb HBC Total: Negative HBsAg HBsAg: Negative HBV DNA No results on file Anti-HCV HCV: Negative Anti-HIV I/II No results on file Anti-HTLV I/II HTLV: Not Done RPR/VDRL RPR: Negative EBV IgM EBV VCA IgM: Negative HBsAb HBsAb: Not Done EBNA No results on file SARS CoV-2 No results on file Care Team Name Role Phone Fax Email Rand Collins RN Kidney Coordinator [phone] N/A N/A Miguel Hernandez MD Referring Physician [phone] N/A Darshana Dean RN Secondary Coordinator [phone] N/A N/A Rand Collins RN On Site Soil Evaluator [phone] N/A N/A Shruthi Soto Primary Woolen Suiting Shrinker N/A N/A N/A Chapo Nelson Secondary Woolen Suiting Shrinker N/A N/A N/A Cecelia Wilcox Commercial Driver'S License Driver [phone] N/A N/A Events Post-Transplant Pre-Transplant Admitted: 05/30/2019 Referred: 04/02/2015 Transplanted: 05/30/2019 Evaluation began: 6 Discharged: 06/02/2019 Center waitlisted: 6 Dialysis History Dialysis History Start End Type Comments Center 12/18/2015 05/30/2019 Home Hemodialysis Hemo [facility] Dialysis Center Information Center Phone Fax Address [facility] [phone] [address] [facility] [address]
--- OUTSIDE RECORDS SUMMARY | 2024-03-14 15:30 | XMS_ITS | Encounter Summary ---
Author Organization [facility] Address [address] [place] [address] Phone Care Team Providers Care Propulsion Systems Engineer Name Role Phone Rigo Alvarenga MD Primary Care Provider [phone] Rand Collins RN Unavailable [phone] Felipe Foss MD Unavailable [phone] Encounter Details Date Type Department Care Team (Latest Contact Info) Description 06/26/2022 Orders Only [facility] Scanning, Provider [...] often do you attend chur ch or mormon services? More than 4 times per year 05/31/2019 Do you belong to any clubs o r organizations such as baptism groups, unions, fraternal or athletic groups, or school groups? Yes 05/31/2019 How often do you attend meet ings of the clubs or organizations you belong to? More than 4 times per year 05/31/2019 Are you , , di vorced, , never , or living with a partner? 05/31/2019 AUDIT-C Answer Date Recorded Q1: How often do you have a drink containing alcohol? Never 05/04/2022 Q2: How many drinks containi ng alcohol do you have on a typical day when you are drinking? 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 Gender Identity Not on file Sexual Orientation Not on file documented as of this encounter Plan of Treatment Not on file documented as of this encounter Procedures Procedure Name Priority Date/Time Associated Diagnosis Comments CARDIOLOGY DOCUMENT SCAN 06/26/2022 documented in this encounter Results * CARDIOLOGY DOCUMENT SCAN (06/26/2022) Anatomical Region Laterality Modality Other us Provider Scanning CV CARDIAC SERVICES PROCEDURES Final Result documented in this encounter Visit Diagnoses Not on filedocumented in this encounter Care Teams Propulsion Systems Engineer Relationship Specialty Start Date End Date Rigo Alvarenga MD PCP - General 03/31/17 Rand Collins, RN [address] [facility] [address] [place] [address] Chief Creative Officer 05/31/19 Felipe Foss MD [address] [place] [address] Medical Oncologist/Operations Lead Hematology and Oncology 01/04/23 documented as of this encounter
--- OUTSIDE RECORDS SUMMARY | 2024-03-14 15:30 | XMS_ITS | Encounter Summary ---
Author Organization [facility] Address [address] [place] [address] Phone Care Team Providers Care E/M Engineer Name Role Phone Rigo Alvarenga MD Primary Care Provider [phone] Rand Collins RN Unavailable [phone] Felipe Foss MD Unavailable [phone] Encounter Details Date Type Department Care Team (Latest Contact Info) Description 06/21/2023 Orders Only [facility] Scanning, Provider Social History Tobacco Use Types Packs/Day Years Used Date Smoking Tobacco: Never Passive Smoke Exposure: Never Smokeless Tobacco: Never Alcohol Use Standard [...] any clubs o r organizations such as confucianism groups, unions, fraternal or athletic groups, or [...] place to sleep or slept in a long-term (including now)? No 09/29/2022 Personal Safety Answer Date Recorded Have you ever been in or are you currently in a harmful physical or emotional relationship or is someone making you feel afraid or unsafe? 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 Gender Identity Not on file Sexual Orientation Not on file documented as of this encounter Plan of Treatment Not on file documented as of this encounter Procedures Procedure Name Priority Date/Time Associated Diagnosis Comments SCAN - LABS 06/21/2023 documented in this encounter Results * SCAN - LABS (06/21/2023) us Provider Scanning Final Result documented in this encounter Visit Diagnoses Not on filedocumented in this encounter Care Teams E/M Engineer Relationship Specialty Start Date End Date Rigo Alvarenga MD PCP - General 03/31/17 Rand Collins, FLORES [address] [facility] [address] [place] [address] Surgical Lead 05/31/19 Felipe Foss MD [address] [place] [address] Medical Oncologist/Emergency Room Tech Hematology and Oncology 01/04/23 documented as of this encounter
--- OUTSIDE RECORDS SUMMARY | 2024-03-14 15:30 | XMS_ITS | Data Portability ---
Author Organization [place] [facility] [employer], Main Office Address [address] [place] [address] Care Team Providers Care Clinical Material Handler Name Role Phone FELICIA NEELY Primary Care Provider [phone] DANIAL GENTILE Shade Hanger JORGE BEAR Spray Dry Operator [phone] MEENU STOVER Student Loan Counselor USHA BLAIR Historian Research Assistant QUENTIN ADHIKARI Neurologist Assessment No assessment recorded. Plan of Treatment Reminders Order Date Submit Date Provider Last Modified By Organization Details Last Modified Time Details Appointments None recorded. Lab None recorded. Referral None recorded. Procedures None recorded. Surgeries None recorded. Imaging None recorded. Medication Orders cefdinir 300 mg capsule 2022 023 [id number], [address] [place], [address], 4 14:19:24 cefdinir 300 mg capsule 2023 024 [id number], [address] [place], [address], 4 15:21:56 Patient TargetsNo targets recorded. Patient Instructions Encounter Date Encounter Id Patient Instructions Last Modified By Organization Details Last Modified Time 02/11/2023 [id number] this patient's symptoms are consistent with chronic sinusitis but with a history of multiple myeloma imaging is required [email or web address] Not available 02/11/2023 11:55:18 Reason for Referral None Reported. Results Created Date Observation Date Name Description Value Unit Range Abnormal Flag Note LastModifiedBy Organization Detail LastModifiedTime 02/17/19 24 02/12/2023 CT, sinus es, w/o contr ast No observ ation record ed. [address] [place], [address], 02/17/2023 14:40:43 02/18/19 24 02/12/2023 CT, sinus es, w/o contr ast No observ ation record ed. [address] [place], [address], 02/22/2023 15:44:23 06/28/19 24 06/25/2023 CT, head, w/ contr ast No observ ation record ed. [address] [place], [address], 06/28/2023 12:41:54 07/02/19 24 06/25/2023 CT, head, w/ contr ast No observ ation record ed. [address]) [address] [place], [address], 07/06/2023 09:39:15 07/13/19 24 07/13/2023 audio gram + tympa nogra m No observ ation record ed. [email or web address] Not Available 2023 16:19:29 07/16/19 24 07/16/2023 audio gram + tympa nogra m No observ ation record ed. [facility] (Audiology) [address] [place] [address] [place] [address], [phone], 07/16/2023 11:10:06 Result Notes None recorded. Problems Name Problem SNOMED Code Status Onset Date Resolution Date Notes Provider Name and Address Organization Details Recorded Time Chronic sinusitis 98593125 Active 2022 Marguerite Shoemaker RN null, [facility] 11:52:03 Sensorineural hearing loss 77359111 Active 2023 Marguerite Shoemaker RN null, [facility] 4 15:13:31 Multiple myeloma 193410997 Active 2023 Marguerite Shoemaker RN null, [facility] 4 15:13:44 Bilateral chronic serous otitis 765681718 Active 2023 Gaston Calderon MD [address] [facility], [facility] [address], [place], [address] [place] [address] [facility] 4 15:21:09 Problem Notes None recorded. Procedures Surgical History Date Name Laterality Status Provider Name and Address Organization Details Recorded Time Kidney completed ISAIAH Ribeiro [facility] 01/12/2023 13:00:19 Imaging Results Imaging Date Name Status LastModified by Organiz ation Details LastModified Time 02/12/2023 CT, sinuses, w/o contrast completed [email or web address] [address] [place], [address], 02/17/2023 14:40:43 02/12/2023 CT, sinuses, w/o contrast completed [email or web address] [address] [place], [address], 02/22/2023 15:44:23 06/25/2023 CT, head, w/ contrast completed [email or web address] [address] [place], [address], 06/28/2023 12:41:54 06/25/2023 CT, head, w/ contrast completed [email or web address]) [address] [place], [address], 07/06/2023 09:39:15 07/13/2023 audiogram + tympanogram completed [email or web address] Information not available 07/13/2023 16:19:29 07/16/2023 audiogram + tympanogram completed [facility] (Audiology) [address] [place] [address], [phone], 07/16/2023 11:10:06 Procedure Notes None recorded. Medical Equipment None Reported. Allergies Allergen ID Allergen Name Allergen Category Reaction Reaction Severity Criticality Documentation Date Start Date Code Code System Note Provider Name and Address Organization Details Recorded Time 70897 prednison e medicatio n rash Not available Not available 01/12/2023 8640 RxNorm PT REPOR TS HIGH DOSAG ES OF PREDN ISONE CAUSE S RASH [facility] 12:48:29 58661 lisinopri l medicatio n cough Not available Not available 01/12/2023 80930 RxNorm CAUSE S DRY COUGH [facility] 12:48:56 55080 codeine medicatio n cough Not available Not available 01/12/2023 2670 RxNorm [facility] 3 12:49:09 14071 duloxetin e medicatio n hallucina tions severe Not available 01/12/2023 81182 RxNorm [facility] 12:49:34 Medications Name Sig Start Date Stop Date Status Note LastModified by Organization Details LastModified Time cyclobenz aprine 10 mg tablet TAKE 1 TABLET BY MOUTH 3 TIMES A DAY NEEDED active Not Available Not Available No t Available amoxicill in 500 mg capsule TAKE 1 CAPSULE BY MOUTH EVERY 12 HOURS FOR 10 DAYS 02/11 completed Not Available Not Available Not Available furosemid e 40 mg tablet TAKE 1 TABLET BY MOUTH EVERY DAY 02/11 completed Not Available Not Available Not Available metolazon e 2.5 mg tablet TAKE 1 TABLET (2.5 MG TOTAL) BY MOUTH DAILY TAKE 30 MINUTES BEFORE THE DOSE OF BUMEX(DI URETIC) 02/11 completed Not Available Not Available Not Available carvedilo l 25 mg tablet TAKE 1 TABLET BY MOUTH TWICE A DAY 02/11 completed Not Available Not Available Not Available carvedilo l 6.25 mg tablet TAKE 4 TABLETS (25 MG TOTAL) BY MOUTH 2 (TWO) TIMES A DAY 02/11 completed Not Available Not Available Not Available prednison e 10 mg tablet TAKE 1 TABLET (10 MG) BY MOUTH DAILY DX CODE Z94.0 06/13 completed Not Available Not Available Not Available doxycycli ne hyclate 100 mg capsule TAKE 1 CAPSULE BY MOUTH TWICE A DAY 06/16 completed Not Available Not Available Not Available atorvasta tin 20 mg tablet TAKE 1 TABLET BY MOUTH EVERY DAY AT NIGHT active Not Available Not Available No t Available bumetanid e 2 mg tablet TAKE 1 TABLET BY MOUTH EVERY DAY 02/11 completed Not Available Not Available Not Available azithromy aram 250 mg tablet TAKE 2 TABLETS BY MOUTH TODAY, THEN TAKE 1 TABLET DAILY FOR 4 DAYS 02/11 completed Not Available Not Available Not Available cefpodoxi me 100 mg tablet TAKE 1 TABLET BY MOUTH TWICE A DAY FOR 10 DAYS 02/11 completed Not Available Not Available Not Available prednison e 5 mg tablet TAKE 1 TABLET (5 MG) BY MOUTH DAILY DX CODE Z94.0 2023 active Not Available Not Available Not Avai lable midodrine 5 mg tablet TAKE 1 TABLET BY MOUTH TWICE A DAY 02/11 completed Not Available Not Available Not Available prochlorp erazine maleate 10 mg tablet TAKE 1 TABLET BY MOUTH EVERY 6 HOURS NEEDED FOR NAUSEA OR VOMITING . 02/11 completed Not Available Not Available Not Available acyclovir 400 mg tablet TAKE 1 TABLET (400 MG TOTAL) BY MOUTH 2 (TWO) TIMES A DAY FOR SHINGLES PREVENTI ON. active Not Available Not Available No t Available allopurin ol 100 mg tablet TAKE 1 TABLET BY MOUTH EVERY DAY active Not Available Not Available No t Available aspirin 81 mg tablet,de layed release TAKE 1 TABLET BY MOUTH EVERY DAY active Not Available Not Available No t Available doxycycli ne monohydra te 100 mg tablet TAKE 1 TABLET BY MOUTH TWICE A DAY 06/16 completed Not Available Not Available Not Available tramadol 50 mg tablet TAKE 1-2 TABLETS BY MOUTH 1 HR BEFORE PROCEDUR E 02/11 completed Not Available Not Available Not Available FiberCon 625 mg tablet 1 TABLET TWICE A DAY 02/11 completed Not Available Not Available Not Available tamsulosi n 0.4 mg capsule TAKE 1 CAPSULE BY MOUTH TWICE A DAY active Not Available Not Available No t Available amlodipin e 10 mg tablet TAKE 1 TABLET BY MOUTH AT BEDTIME 02/11 completed Not Available Not Available Not Available doxycycli ne monohydra te 100 mg capsule TAKE 1 CAPSULE BY MOUTH TWICE A DAY 02/11 completed Not Available Not Available Not Available hydralazi ne 100 mg tablet TAKE 1 TABLET BY MOUTH 3 TIMES A DAY. 02/11 completed Not Available Not Available Not Available pantopraz ole 40 mg tablet,de layed release TAKE 1 TABLET BY MOUTH TWICE A DAY active Not Available Not Available No t Available bumetanid e 0.5 mg tablet TAKE 1 TABLET BY MOUTH 2 TIMES A DAY. 06/13 completed Not Available Not Available Not Available dexametha sone 4 mg tablet TAKE 5 TABLETS (20 MG TOTAL) BY MOUTH ONCE A WEEK SAME DAY VELCADE active Not Available Not Available No t Available losartan 25 mg tablet TAKE 1/2 TABLET BY MOUTH EVERY DAY active Not Available Not Available No t Available gabapenti n 300 mg capsule TAKE 1 CAPSULE BY MOUTH EVERY DAY AT NIGHT active Not Available Not Available No t Available bumetanid e 1 mg tablet TAKE 1 TABLET BY MOUTH TWICE A DAY active Not Available Not Available No t Available monteluka st 10 mg tablet TAKE 1 TABLET BY MOUTH EVERY DAY IN THE EVENING active Not Available Not Available No t Available allopurin ol 300 mg tablet TAKE 1 TABLET BY MOUTH EVERY DAY 06/13 completed Not Available Not Available Not Available hydralazi ne 50 mg tablet TAKE 1 TABLET BY MOUTH THREE TIMES A DAY active Not Available Not Available No t Available gabapenti n 100 mg capsule TAKE 3 CAPSULES BY MOUTH NIGHTLY 02/11 completed Not Available Not Available Not Available albuterol sulfate HFA 90 mcg/actua tion aerosol inhaler INHALE 2 PUFFS BY MOUTH EVERY 4 TO 6 HOURS NEEDED 06/13 completed Not Available Not Available Not Available cefdinir 300 mg capsule TAKE 1 CAPSULE BY MOUTH EVERY 12 HOURS active Not Available Not Available No t Available Novolog FlexPen U-100 Insulin aspart 100 unit/mL (3 mL) subcutane ous PLEASE SEE ATTACHED FOR DETAILED DIRECTIO NS active Not Available Not Available No t Available pregabali n 25 mg capsule TAKE 1 CAPSULE BY MOUTH EVERY DAY 06/13 completed Not Available Not Available Not Available Novolog FlexPen U-100 Insulin 06/16 completed Not Available Not Available Not Available Revlimid 10 mg capsule TAKE ONE CAPSULE BY MOUTH DAILY FOR 21 DAYS THEN TAKE 7 DAYS OFF active Not Available Not Available No t Available Januvia 50 mg tablet TAKE 1 TABLET BY MOUTH EVERY DAY 02/11 completed Not Available Not Available Not Available Senexon-S 8.6 mg-50 mg tablet TAKE 1 TABLET BY MOUTH TWICE DAILY NEEDED FOR CONSTIPA TION 02/11 completed Not Available Not Available Not Available D3-2000 Vitamin D3 2000 IU 50 mcg daily active Not Available Not Available No t Available Allergy Relief (fexofena dine) 180 mg tablet TAKE 1 TABLET BY MOUTH EVERY DAY active Not Available Not Available No t Available Tradjenta 5 mg tablet Take 1 tablet every day by oral route. active Pt reports he takes 10 mg Not Available Not Available Not Available OneTouch Verio test strips CHECK BLOOD SUGAR 3 TIMES A DAY active Not Available Not Available No t Available Jardiance 10 mg tablet Take 1 tablet every day by oral route. active Not Available Not Available No t Available prochlorp erazine active Not Available Not Available Not Available Tart Mcadams Extract 1200 mg daily active Not Available Not Available No t Available Envarsus XR 1 mg tablet,ex tended release active Not Available Not Available Not Available Nasal Sabin Bottle active Not Available Not Available Not Available Basaglar KwikPen U-100 Insulin 100 unit/mL (3 mL) subcutane ous INJECT 14 UNITS UNDER THE SKIN AT BEDTIME active Not Available Not Available No t Available Probiotic Acidophil us active Not Available Not Available Not Available Fiasp FlexTouch U-100 Insulin 100 unit/mL (3 mL) subcutane ous pen PLEASE SEE ATTACHED FOR DETAILED DIRECTIO NS 06/13 completed Not Available Not Available Not Available BD Veronica 2nd Gen Pen Needle 32 gauge x USE WITH INSULIN 4 TIMES DAILY DX CODE: E11.9 active Not Available Not Available No t Available OneTouch Delica Plus Lancet 30 gauge USE TO CHECK BLOOD SUGAR 3 TIMES PER DAY active Not Available Not Available No t Available Rybelsus 7 mg tablet TAKE 1 TABLET (7 MG TOTAL) BY MOUTH DAILY 06/13 completed Not Available Not Available Not Available Rybelsus 3 mg tablet TAKE 1 TABLET BY MOUTH DAILY 02/11 completed Not Available Not Available Not Available Gvoke HypoPen 2-Pack 1 mg/0.2 mL subcutane ous auto-inje ctor INJECT 1 MG UNDER THE SKIN NEEDED ( NEEDED FOR SEVERE HYPOGLYC EMIA) active Not Available Not Available No t Available FreeStyle Missy 3 Sensor device Use to check blood sugar before meals and at bed time and as needed active Not Available Not Available No t Available FreeStyle Missy 3 [place] USE DIRECTED 02/11 completed Not Available Not Available Not Available Vitals Date Recorded Body height Body temperature Body mass index (BMI) Body weight Provider Name and Address Organization Details Last Updated DateTime 02/11/2023 170.18 cm 98.5 [degF] 25.1 kg/m2 20306.78 g Marguerite Shoemaker RN [facility] 02/11/2023 11:34:54 Date Recorded Body height Body mass index (BMI) Body weight Body temperature Provider Name and Address Organization Details Last Updated DateTime 06/17/2023 170.18 cm 26.9 kg/m2 11617.89 g 98.4 [degF] Marguerite Shoemaker RN [facility] [employer] 06/17/2023 14:56:07 Social History Question Answer Notes LastModified by Organizat ion Details LastModified Time Tobacco Smoking Status Never Smoker ISAIAH Ribeiro, [facility] 01/12/2023 12:50:49 What Is Your Level Of Alcohol Consumption? None [email or web address] Information not available 01/12/2023 Sex: Unknown Functional Status None recorded. Mental Status None recorded. Family History Relationship Description Onset Age of this Age Resolved Age Notes LastModified by Organization Details LastModified Time Father No current problems or disability [email or web address] Not available 01/12 12:50:28 Mother No current problems or disability [email or web address] Not available 01/12 12:50:28 Medical History Condition Response MRSA N BACK INJECTIONS N ALLERGIES/HAYFEVER N LUNG DISEASE/DISORDER N INSOMNIA N HISTORY OF DRUG ABUSE N ESRD N RADIATION / CHEMOTHERAPY N COPD N HIGH CHOLESTEROL / HYPERLIPIDEMIA N HYPERTHYROIDISM N PVD N BLOOD DISEASES N EAR OR HEARING PROBLEMS N HYPOTHYROIDISM N SHINGLES N DEPRESSION (INCLUDING POST ) N BACK / NECK PROBLEMS N HAVE YOU BEEN HOSPITALIZED OR SEEN IN TH E ER IN THE PAST YEAR ? N FAILED BACK SYNDROME N STROKE/TIA N POLYCYSTIC OVARIES N OBESITY N HISTORY WITH COMPLICATIONS WITH ANESTHES IA ? N ANEURYSM N Do you have Advance directive? N USE OF BLOOD THINNERS N NO SIGNIFICANT PAST MEDICAL HISTORY N DIABETES, TYPE Y VON WILLIBRAND'S DISEASE N PARATHYROID DISEASE N ENT N SEASONAL ALLERGIES N HEARTBURN / REFLUX N POST LAMINECTOMY SYNDROME N HEPATITIS / LIVER DISEASE N SLEEP DISORDER Y ARTERIAL INSUFFICIENCY N SEIZURES/EPILEPSY N HEADACHES/MIGRAINES N CHF N PACEMAKER N DIZZINESS N HEART DISEASE/HEART PROBLEMS N AIDS/HIV N NEUROPSYCHOLOGICAL N HYPERTENSION Y CANCER: SPECIFY Y TOURETTE'S N BLOOD TRANSFUSION N ANESTHESIA COMPLICATIONS N ANEMIA/BLOOD DISORDER N CHRONIC EAR INFECTIONS N ATRIAL FIBRILLATION N AUTOIMMUNE DISEASE N TUBERCULOSIS N Past Encounters Encounter ID Performer Location Encounter Start Date Encounter Closed Date Diagnosis/Indication Diagnosis SNOMED-CT Code Diagnosis ICD10 Code Diagnosis Note [id number] Gaston Calderon MD [facility] [place] [address] [place] [address] 02/11/2023 10:48:37 02/11/2023 12:03:10 Chronic sinusitis 56616993 J32.9 [id number] Gaston Calderon MD [facility] [place] [address] [place] [address] 06/17/2023 14:35:51 06/18/2023 10:52:31 Bilateral chronic serous otitis 994200910 H65.23 Multiple myeloma 6655888 06 C90.00 Chronic sinusitis 487865 00 J32.9 Health Concerns Section Related Observation LastModified by Organization Detai ls LastModified Time None Recorded Concern Status LastModified by Organization Details LastModified Time None Recorded Advance Directives Directive None Recorded Payers Encounter Date Sequence Insurance Name Policy Number Policy Gates Covered Member ID Gates Member ID Guarantor Name 02/11/2023 1 [place] Zachary Melton [id number] Zachary Melton 02/11/2023 2 [place] [id number] Zachary Melton [id number] Zachary Melton 06/17/2023 1 [place] Zachary Melton [id number] Zachary Melton 06/17/2023 1 [employer] (MEDICARE REPLACEMENT PPO) [id number] Zachary Powers Geronimo [id number] Zachary Melton Notes Date Note Type Note Provider Name and Address Organization Details Recorded Time 02/11/2023 text/html this patient has a diagnosis of multiple myeloma and reports pressure in his left ear and some numbness as well. He has been having nose bleeds also on the left with scabs. He denies hearing loss or vertigo. He has not had medications for this. Gaston Calderon MD [address] [place] [address], [place], [address], [employer] [place] 02/11/2023 11:55:45 06/17/2023 text/html this patient has recently been diagnosed with multiple myeloma. His CT scan in January revealed sinusitis and since then he has been treated with antibiotics. He now reports that he is having temporoparietal pain and was told that he had middle ear fluid Gaston Calderon MD [address], [place], [address], [facility] 06/17/2023 15:22:16
== END 2024-03-14 14:59 | disposition home or self-care (01) ==
LOC: CHSIMG 15:00
PROVIDERS: PCP Internal Medicine; Visit Provider Nurse Practitioner Family
DX: M25.522 Pain in left elbow (principal); M25.552 Pain in left hip; S09.90XA Unspecified injury of head, initial encounter; R90.82 White matter disease, unspecified; M19.022 Primary osteoarthritis, left elbow; M16.0 Bilateral primary osteoarthritis of hip; M89.9 Disorder of bone, unspecified
CPT/HCPCS: 70450; 73080; 73502

== ENCOUNTER 2024-03-27 07:22 | Outpatient (CLI) | payer MEDICARE, SELFPAY ==
--- OUTSIDE RECORDS SUMMARY | 2024-03-27 07:28 | XMS_ITS | Encounter Summary ---
Author Organization [facility] Healthcare Address [address] [place] [address] Care Team Providers Care Wood Milling Machine Hand Name Role Phone Rigo Alvarenga MD Primary Care Provider [phone] Rand Collins RN Unavailable [phone] Felipe Foss MD Unavailable [phone] Encounter Details Date Type Department Care Team (Late st Contact Info) Description 12/04/2022 Telephone [facility] [address] [facility] [address] [place] [address] Rigo Alvarenga MD [address] [place] [address] Social History Tobacco Use Types [...] How often do you attend chur or mormon services? More than 4 times per year 09/29/2022 Do you belong to any clubs o r organizations such as latter day groups, unions, fraternal or athletic groups, or [...] place to sleep or slept in a snf (including now)? 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 [address] [place] [address] Hog Cutter 05/31/19 Felipe Foss MD [address] [place] [address] Medical Oncologist/Roll Forming Machine Set Up Operator Hematology and Oncology 01/04/23 documented as of this encounter
--- OUTSIDE RECORDS SUMMARY | 2024-03-27 07:28 | XMS_ITS | Clinical Summary ---
Author Organization [facility] Address [address] [place] [address] Care Team Providers Care Traffic Attendant Name Role Phone Rigo Alvarenga MD Primary Care Provider Allergies No known active allergies Medications tacrolimus [...] 94 06/20/2019 12:30 AM CDT Temperature 36.9 C (98.4 F) 06/19/2019 9:30 PM CDT Respiratory Rate 23 06/20/2019 12:15 AM CDT [...] patient's age to complete this topic Insurance MEDICARE MEDIC[place] [address] [place] [address] Care Teams Traffic Attendant Relationship Specialty Start Date End Date Rigo Alvarenga MD [address] [place] [address] PCP - General INTERNAL MEDICINE 06/19/19
--- OUTSIDE RECORDS SUMMARY | 2024-03-27 07:28 | XMS_ITS | Encounter Summary ---
Author Organization [facility] Address [address] [place] [address] Phone Care Team Providers Care Drum Drier Operator Name Role Phone Rigo Alvarenga MD Primary Care Provider Ag Malcolm MD Primary Care Provider Rigo Alvarenga MD Primary Care Provider Ag Malcolm MD Primary Care Provider Rigo Alvarenga MD Primary Care Provider Ag Malcolm MD Primary Care Provider Ag Malcolm MD Primary Care Provider Rigo Alvarenga MD Primary Care Provider Malgorzata Edwards RN Unavailable [phone] Marguerite Carson Unavailable Unavail able Tamy Arcos RN Unavailable Chase Durbin MD Unavailable Pavithra Tavarez RN Unavailable Rand Collins RN Unavailable [phone] Felipe Foss MD Unavailable [phone] Encounter Details Date Type Department Care Team (Latest Contact Info) Description 12/04/2016 Orders Only [facility] CONVERSION Scanning, Provider Social History Tobacco Use Types Packs/Day Years Used Date Smoking Tobacco: Never Sex and Gender Information Value Date Recorded Sex Assigned at Not on file 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 Gender Identity Not on file Sexual Orientation [...] documented as of this encounter Care Teams Drum Drier Operator Relationship Specialty Start Date End Date Rigo Alvarenga MD PCP - General 12/02/16 12/15/16 Ag Malcolm MD [address] [place] [address] PCP - General 12/16/16 12/18/16 Rigo Alvarenga MD PCP - General 12/19/16 02/25/17 Ag Malcolm MD [address] [place] [address] PCP - General 02/26/17 03/04/17 Rigo Alvarenga MD PCP - General 03/05/17 03/24/17 Ag Malcolm MD [address] [place] [address] PCP - General 03/30/17 03/30/17 Ag Malcolm MD [address] [place] [address] PCP - General 03/25/17 03/29/17 Rigo Alvarenga MD PCP - General 03/31/17 Malgorzata Edwards, RN [address] [address] Client Services Director 07/13/17 Marguerite Moise Client Services Director 07/23/17 08/10/17 Tamy Arcos RN [address] [address] Client Services Director 08/11/17 Chase Durbin MD [address] [facility] [address] [place] [address] Freight Service Inspector Nephrology 03/23/19 11/23/19 Pavithra Tavarez, FLORES [address] [facility] [address] [place] [address] Client Services Director 03/30/19 0 Rand Collins RN [address] [facility] [address] [place] [address] Client Services Director 05/31/19 Felipe Foss MD [address] [place] [address] Medical Oncologist/Fuel Injection Servicer Hematology and Oncology 01/04/23 documented as of this encounter
--- OUTSIDE RECORDS SUMMARY | 2024-03-27 07:28 | XMS_ITS | Encounter Summary ---
Author Organization [facility] Address [facility] [place] [address] Care Team Providers Care Auto Body Service Mechanic Name Role Phone Rigo Alvarenga MD Primary Care Provider [phone] Encounter Details Date Type Department Care Team (Late st Contact Info) Description 07/23/2018 Abstract [facility] CONVERSION [address] [place] [address] , Generic ConversionMD Social History Tobacco Use [...] on filedocumented in this encounter Care Teams Auto Body Service Mechanic Relationship Specialty Start Date End Date Rigo Alvarenga MD [address] [place] [id number] PCP - General INTERNAL MEDICINE 06/19/19 documented as of this encounter
--- OUTSIDE RECORDS SUMMARY | 2024-03-27 07:28 | XMS_ITS | Patient Health Record ---
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 09/09/2023 Unspecified atherosclerosis of eyak arteries of extremities, bilateral legs (ICD-10 - [...] of lotrisone cream. 10/07/2023 Unspecified atherosclerosis of eyak arteries of extremities, bilateral legs (ICD-10 - [...] Date Coverage End Date [employer] [address] [place] [phone] [id number] HUSSAIN SARGENT Self - patient is the insured Medical (General) History Medical History History ICD Code acid reflux neuropathy skin cancer angina Radiation therapy Epilepsy high blood pressure
--- OUTSIDE RECORDS SUMMARY | 2024-03-27 07:28 | XMS_ITS | Clinical Summary ---
Author Organization [facility] Address [address] [place] [address] Care Team Providers Care Solar Thermal Technician Name Role Phone Rigo Alvarenga MD Primary Care Provider [phone] Rand Collins RN Unavailable [phone] Felipe Foss MD Unavailable [phone] Allergies Active Allergy Reactions Criticality Noted Date Comments Codeine Cough Low 11/20/2015 Duloxetine Diarrhea,Hallucinations High 10/26/2012 Prednisone Rash,Other (See comments) Medium 05/16/2010 Acne-like pimples, all over At high doses. 06/20/19: Approved to give Prednisone per Dr. Elinor Villaseñor (Pato Garcia, [place]) Medications sour alvarez extract (TART ALVAREZ EXTRACT ORAL)Indications :Gout,gout Take 1,200 mg by mouth every morning Active blood glucose strip-disp meter kit Use as directed. 1 kit 05/17/19 22 Active blood-glucose meter (OneTouch Verio Meter) miscIndications: Type 2 diabetes mellitus with other specified complication, unspecified whether usp insulin use (HCC) Use to check blood sugar 4 times per day 1 each 06/12/19 22 Active cyanocobalamin, vitamin B-12, (VITAMIN B-12 ORAL)Indications :Prevention of Vitamin B12 Deficiency Take 1,000 mcg by mouth every morning Active atorvastatin (LIPITOR) 20 mg tablet TAKE 1 TABLET BY MOUTH EVERY DAY AT NIGHT 90 tablet 3 08/13/19 23 Active flash glucose scanning reader miscIndications: Type 2 diabetes mellitus with other specified complication, unspecified whether manager terminal insulin use (HCC) Use to read missy 3 sensor 1 each 01/01/20 23 Active cholecalciferol (VITAMIN D-3) 2000 unit tabletIndication s:Prevention of Vitamin D Deficiency Take 0.5 tablets (1,000 Units total) by mouth every morning Active FreeStyle Missy 3 [place] misc as directed Sugars have been way off with sensor so is also sticking himself (using blood glucose meter) 12/26/[address] (PROTONIX) 40 mg EC tablet Take 1 tablet (40 mg total) by mouth every morning 01/16/20 23 Active acetaminophen (TYLENOL) 500 mg tablet Take 1 tablet (500 mg total) by mouth every 6 (six) hours 90 tablet 03/26/19 24 Active aspirin 81 mg enteric coated tabletIndication s:Kidney replaced by transplant TAKE 1 TABLET BY MOUTH EVERY DAY 90 tablet 3 04/19/19 24 Active bumetanide (BUMEX) 1 mg tablet Take 1 tablet (1 mg total) by mouth 2 (two) times a day 180 tablet 3 05/18/19 24 Active glucagon (Gvoke HypoPen 2-Pack) 1 mg/0.2 mL auto-injectorInd ications:Type 2 diabetes mellitus with other specified complication, unspecified whether manager terminal insulin use (HCC) Inject 1 mg under the skin as needed (as needed for severe hypoglycemia ) 0.4 mL 6 06/07/19 24 Active OneTouch Verio test strips stripIndications :Type 2 diabetes mellitus with other specified complication, unspecified whether usp insulin use (HCC) CHECK BLOOD SUGAR 3 TIMES A DAY 100 strip 11 06/17/19 24 Active allopurinoL (ZYLOPRIM) 100 mg tablet Take 1 tablet (100 mg total) by mouth daily 30 tablet 06/24/19 24 Active pyridoxine (VITAMIN B-6) 100 mg tablet Take 1 tablet (100 mg total) by mouth daily Active lancets (OneTouch Delica Plus Lancet) 30 gauge miscIndications: Type 2 diabetes mellitus with other specified complication, unspecified whether usp insulin use (HCC) USE TO CHECK BLOOD SUGAR 3 TIMES PER DAY 100 each 09/08/19 24 Active gabapentin (NEURONTIN) 300 mg capsuleIndicatio ns:Neuropathic Pain Take 1 capsule (300 mg total) by mouth 2 (two) times a day 60 capsule 11 12/15/19 24 Active carvediloL (COREG) 3.125 mg tablet Take 1 tablet (3.125 mg total) by mouth 2 (two) times a day with meals 60 tablet 11 12/20/19 24 025 Active FreeStyle Missy 3 Sensor deviceIndication s:Type 2 diabetes mellitus with other specified complication, unspecified whether manager terminal insulin use (HCC) Use to check blood sugar before meals and at bed time and as needed 2 each 11 12/21/19 24 Active predniSONE (DELTASONE) 5 mg tablet TAKE 1 TABLET (5 MG) BY MOUTH DAILY DX CODE Z94.0 90 tablet 3 12/22/19 24 Active losartan (COZAAR) 50 mg tablet Take 2 tablets (100 mg total) by mouth daily 90 tablet 3 01/05/20 24 Active tacrolimus XR (ENVARSUS XR) 0.75 mg tablet extended release 24 hrIndications:Pr evention of Kidney Transplant Rejection Take 2 tablets (1.5 mg total) by mouth daily 180 tablet 3 01/07/20 24 Active tamsulosin (FLOMAX) 0.4 mg extended release capsuleIndicatio ns:Kidney replaced by transplant TAKE 1 CAPSULE BY MOUTH TWICE A DAY 180 capsule 1 01/20/20 24 Active Jardiance 10 mg tabletIndication s:Type 2 diabetes mellitus with other specified complication, unspecified whether manager terminal insulin use (HCC) TAKE 1 TABLET BY MOUTH EVERY DAY 90 tablet 3 02/14/20 24 Active tirzepatide (Mounjaro) 10 mg/0.5 mL pen injector injectionIndicat ions:Type 2 diabetes mellitus with other specified complication, unspecified whether usp insulin use (HCC) Inject 0.5 mL (10 mg total) under the skin every 7 days 2 mL 11 03/15/19 25 Active cyclobenzaprine (FLEXERIL) 10 mg tabletIndication s:Muscle Spasm Take 1 tablet (10 mg total) by mouth as needed for muscle spasms 03/04/19 24 025 Discontinued insulin glargine (BASAGLAR) 100 unit/mL (3 mL) pen for injectionIndicat ions:Type 2 diabetes mellitus with other specified complication (HCC) INJECT 14 UNITS UNDER THE SKIN AT BEDTIME 15 mL 3 05/24/19 24 025 Discontinued montelukast (SINGULAIR) 10 mg tablet 06/10/19 24 025 Discontinued acyclovir (ZOVIRAX) 400 mg tabletIndication s:Multiple myeloma not having achieved remission (CMS/HCC) (HCC) Take 1 tablet (400 mg total) by mouth 2 (two) times a day For shingles prevention. 60 tablet 3 08/31/19 24 025 Discontinued tirzepatide (Mounjaro) 7.5 mg/0.5 mL pen injectorIndicati ons:type 2 diabetes mellitus Inject 7.5 mg under the skin once a week 2 mL 11 02/17/19 025 Discontinued Active Problems Patient Care Coordination No te Formatting of this note migh t be different from the original. Per Dr. Limon, FK goal 2-4 d/t receiving treatment for MM on Envarsus 1mg Discharge Preferences: Lab: [facility] , [phone] standing orders q Monthly, FK,UPE, q3 HgbA1C Exp. 03/30/24 Home Health: [facility] /[phone] Local Pharmacy: [facility] in [place] Specialty [facility]: [facility] Problem Noted Date Diagnosed [...] cardiology follow up. Discussed plan with attending repairer recreational vehicle. HEATHER on CPAP 09/25/2022 Assessment & Plan [...] further with Dr. Yu. Will proceed with [facility] to better assess volume status and [...] (04/30/2022): Added automatically from request for surgery [id number] Encounter for preadmission testing 04/24/2022 LAYO (acute [...] Assessment & Plan (07/17/2022 12:25 PM CDT): Continue Atorvastatin 20 mg daily. Vitamin D deficiency 10/07/2021 Other hyperlipidemia 10/07/2021 Assessment & Plan (09/21/2022 10:00 AM CDT): -last lipid panel dated 08/20/2022: Total cholesterol 89, triglycerides 104, HDL 40, LDL 28 -continue same medical management Assessment & Plan (05/04/2022 8:34 AM CDT): -last lipid panel dated 02/20/2022: Total cholesterol 119, triglycerides 149, HDL 45, LDL 44 -continue same medical management Type 2 diabetes mellitus with other specified co mplication 06/11/2021 Hyperkalemia 06/20/2019 Assessment & Plan (06/20/2019 6:12 AM CDT): Patient s/p renal transplant 05/29, admitted after monitoring labs showed K 6.4 in setting of starting potassium supplementaion about 1 week prior w/ 20 meq daily -at OSH reportedly K 7.0, given calcium gluconate, insulin, and kayaxelate -upon arrival to [facility] ED, K 6.0, WBK 5.6 no additional therapies given -Repeat K and WBK on arrival, manage as appropriate -likely transfer to floor later this morning -renal transplant consult in AM -hold bactrim for time being as could be contributing to hyperkalemia, resume pending transplant nephrology recs ([facility] medication) BPH (benign prostatic hyperplasia) 06/20/2019 Assessment & Plan (06/20/2019 4:45 AM CDT): Continue home flomax Kidney transplant recipient 05/31/2019 Assessment & Plan (09/21/2022 10:01 AM CDT): -[facility] use of immunosuppressants and steroids complicates diabetes management. Assessment & Plan (05/04/2022 8:32 AM CDT): -[facility] use of immunosuppressants and [...] function 05/31/2019 ESRD (end stage renal disease) ([facility]) 020 Overview (05/30/2019): Added automatically from request for surgery [id number] Pruritus 08/10/2018 ESRD (end stage renal disease) [...] Plan (07/17/2022 12:24 PM CDT): Well controlled. Continue amlodipine, carvedilol, hydralazine, and losartan at [...] to steroids. Steroids are certainly exacerbating problem. TDD 25 units insulin yesterday.Yesterday got pred [...] to steroids. Steroids are certainly exacerbating problem. TDD 9 units insulin yesterday. Two days [...] 11/06/2009 Systemic lupus erythematosus (SLE) in adult ([facility]) 11/06/2009 Resolved Problems Problem Noted Date Diagnosed Date Resolved Date Hypotension 11/25/2022 08/26/2023 Elevated brain natriuretic p eptide (BNP) level 07/17/2022 08/26/2023 ESRD (end stage renal disease) [place] 11/18/2017 05/10/2018 Overview (11/18/2017): Added automatically from request for surgery [id number] Peritoneal dialysis catheter tunnel infection 10/28/19 18 09/12/2018 Overview (10/27/2017): Added automatically from request for surgery [id number] End-stage renal disease on h emodialysis ([facility]) 10/07/2017 05/10/2018 Overview (10/07/2017): Added automatically from request for surgery [id number] Stage 4 chronic kidney disease ([facility]) 01/16/2015 05/10/2018 Encounter for monitoring tacrolimus therapy 11/17/2010 09/12/2018 Encounters Date Type Department Care Team Description 03/15/2024 11:00 AM INTERNAL AUDIT MANAGER Office Visit [facility] Endocrinology Metabolism and Lipid [address] [facility] [address] [place] [address] [place] [address] Brian Ambrose MD Type 2 diabetes mellitus with other specified complication, unspecified whether usp insulin use (HCC) (Primary Dx); Dyslipidemia; Vitamin D deficiency 03/01/[address] [facility] Endocrinology Metabolism and Lipid [address] [facility] [address] [place] [address] [place] [address] Isis Harper, manager labor delivery results high triglycerides 02/29/[address] [facility] Transplant Kidney [address] [facility] [address] [id number] [place] [address] Arturo Garcia MD 02/18/[address] [facility] Endocrinology Metabolism and Lipid [address] [place] [id number] Isis Harper, RN titrate mounjaro from 7.5 mg to 10 mg 01/26/[address] [facility] Transplant Kidney [address] [facility] [address] [id number] [place] [address] Arturo Garcia MD 01/25/[address] [facility] Transplant Kidney [address] [facility] [address] [phone] [place] [address] Arturo Garcia MD 01/11/2024 Orders Only [facility] Endocrinology Metabolism and Lipid [address] [facility] [address] [place] [address] [place] [address] Holly Cordon NP 01/11/[address] [facility] Endocrinology Metabolism and Lipid [address] [facility] [address] [place] [address] [place] [address] Dagmar Kearns RMA New Rx Request 01/07/[address] [facility] Transplant Kidney [address] [facility] [address] [phone] [place] [address] Rand Collins, FLORES 01/06/2024 1:15 PM INTERNAL AUDIT MANAGER Office Visit [facility] Cardiology [address] [facility] [address] [place] [address] [place] [address] Flaquito Yu MD Chronic diastolic heart failure (HCC) (Primary Dx); Secondary hypertension; Dyslipidemia 01/06/2024 9:30 AM INTERNAL AUDIT MANAGER Telemedicine [facility] Hematology [address] [facility] [address] [place] [address] Felipe Foss MD Multiple myeloma not having achieved remission (CMS/HCC) (HCC) 12/31/[address] [facility] Transplant Kidney [address] [facility] [address] [phone] [place] [address] Arturo Garcia MD 12/28/[address] [facility] Endocrinology Metabolism and Lipid [address] [facility] [address] [place] [address] Jigna Laguna, FLORES LOST MISSY 3 12/28/[address] [facility] Transplant Kidney [address] [facility] [address] [phone] [place] [address] Arturo Garcia MD 12/28/[address] [facility] Transplant Kidney [address] [facility] [address] [phone] [place] [address] Arturo Garcia MD from Last 3 Months Immunizations Name Administration Dates Next Due Influenza, Trivalent, IM (MDV) 7,12/05/2015,11/15/2014,12/30,10/30/2012 Influenza, Trivalent, Preser vative Free, Intramuscular 02/15/2009 Influenza, Unspecified 11/15/2020 Moderna SARS-CoV-2 Monovalen t Vaccination (12+ YRS) 05/17/2020,04/19/2020 Surgical History Surgery Date Site/Laterality Comments PERITONEAL CATHETER INSERTION TUNNELED 11/11/2015 N/A Removed 2017 DC BRNCHSC INCL FLUOR GDNCE DX W/CELL WASHG SPX [...] disease) ESRD (end stage renal diseas e) ([facility]) ([facility]) s/p PD [id number], HD and kidney tx 2010 & 2019 Gout History of peritoneal dialysis 2 -2017 Arthritis Sleep apnea Uses CPAP grabiel e nightly Hard to intubate 11/01/2017 subsequent thro at pain, right gland pain and bit upper lip; No documented difficulty with most recent surgery 05/2019 Acute respiratory failure re quiring reintubation (CMS/HCC) ([facility]) Peritoneal dialysis catheter tunnel infection ([facility]) 10/27/2017 Added automatically from req uest for surgery [id number] Diabetes mellitus (HCC) Dxd ~201 1 Heart murmur Multiple myeloma (HCC) Multiple myeloma dxd ~11/2022-- Treated with Revlimid Heart failure with preserved ejection fraction (CMS/HCC) ([facility]) Per TTE 09/2022-- EF 84% with grade [...] How often do you attend chur or episcopalian services? More than 4 times per year 09/29/2022 Do you belong to any clubs o r organizations such as yarsanism groups, unions, fraternal or athletic groups, or [...] place to sleep or slept in a alf (including now)? No 09/29/2022 Personal Safety Answer Date Recorded Have you ever been in or are you currently in a harmful physical or emotional relationship or is someone making you feel afraid or unsafe? Denies 05/03/2023 Sex and Gender Information Value Date Recorded Sex Assigned at Not on file Legal Sex Male 12:49 PM INTERNAL AUDIT MANAGER Gender Identity Not on file Sexual Orientation Not on file Obstetrics History Last Filed Vital Signs Vital Sign Reading Time Taken Comments Blood Pressure 145/78 03/15/2024 11:09 AM INTERNAL AUDIT MANAGER Pulse 66 03/15/2024 11:09 AM INTERNAL AUDIT MANAGER Temperature 36.8 C (98.2 F) 03/15/2024 11:09 AM INTERNAL AUDIT MANAGER Respiratory Rate 18 12/15/2023 11:24 AM CDT Oxygen Saturation 98% 01/06/2024 12:56 PM INTERNAL AUDIT MANAGER Inhaled Oxygen Concentration - - Weight 83.6 kg (184 lb 3.2 oz) 03/15/2024 11:09 AM INTERNAL AUDIT MANAGER Height 170.2 cm (5' 7 ) 03/15/2024 11:09 AM INTERNAL AUDIT MANAGER Body Mass Index 28.85 03/15/2024 11:09 AM INTERNAL AUDIT MANAGER Plan of Treatment Health Maintenance Due Date [...] history exists Medical Devices Implanted Type Area Respiratory Therapy Aide Device Identifier Shelf Expiration Date Model / Serial / Lot [employer] Medical Luis Miguel Angio-Seal Vip 6fr Closere Device [id number] - [id number] - [id number] Implanted:Qty: 1 on 05/04/2022 by Juan Alston MD at [facility] Vascular Closure Device Left: Femoral Terum[employer] Medical Luis Miguel 01/14/2023 [id number] / [id number] / [id number] 2 [employer] [id number] Commerce Acuseal 4-7mm 45cm Taper Graft Vascular Sterile - [id number] - [id number] Implanted:Qty: 1 on 11/01/2017 by Ace Payan MD at [facility] Left: Arm [employer] 04/22/2020 [id number] / [id number] / Explanted Type Area Respiratory Therapy Aide Device Identifier Shelf Expiration Date Model / Serial / Lot Proximic [id number] Universa 6fr 22cm Radiopaque Tip Positioner Meat Wrapper Braid - [id number] Implanted:Qty: 1 on 05/30/2019 by Rosario Colbert MD at [facility] Explanted:Qty: 1 on 07/06/2019 by Con Shelby NP Stent Left: Ureter Proximic 08/21/2023 [id number] / / Description:Transplanted ure ter Procedures Procedure [...] 12/28/2023 CBC WITH AUTO DIFFERENTIAL Routine 12/28/2023 THYROID FUNCTION CASCADE Routine 10/12/2022 10:23 AM CDT Neuropathy (CMS/HCC) PSA SCREEN STAT 09/24/2022 4:48 PM CDT HEPATITIS C ANTIBODY Routine 05/30/2019 1:17 PM CDT from Last 3 Months or Most Recently Relevant to Health Maintenance Results * (ABNORMAL) Tacrolimus level trough (02/25/2024) SCRIBED Tacrolimus, trough 2.8(A) 5 - 20 TXP NO LAB FOUND Blood 02/25/2024 Historical Provider MD LAB BLOOD ORDERABLES Aida l Result TXP [...] Blood 02/25/2024 Historical Provider LAB BLOOD ORDERABLES Edit ed Result - Final TXP NO LAB FOUND * (ABNORMAL) Albumin Creatinine Ratio, Urine (02/25/2024) SCRIBED Creatinine, Urine 102.95 40 - 278 TXP NO LAB FOUND SCRIBED Microalbumin >400.00 n/a TXP NO LAB FOUND SCRIBED Microalb/Creat Ratio 388.5(A) 0 - 30 TXP NO LAB FOUND Urine 02/25/2024 Result [facility] Provider LAB URINE ORDERABLES Edit ed Result - Final Performing Organization Address [facility] de Phone Number TXP NO LAB FOUND * Hemoglobin A1c (02/25/2024) SCRIBED Hemoglobin A1c 7.7 <57 % TXP NO LAB FOUND Blood 02/25/2024 Result [facility] Provider LAB BLOOD ORDERABLES Aida l Result Performing Organization Address [facility] de Phone Number TXP NO [...] TXP NO LAB FOUND Blood 02/25/2024 Result [facility] Provider LAB BLOOD ORDERABLES Aida l Result Performing Organization Address [facility] de Phone Number TXP NO [...] NO LAB FOUND SCRIBED eGFR in NonAfrican Panamanian 49 >60 TXP NO LAB FOUND SCRIBED Urea Nitrogen (BUN) 33(A) 7 - 18 mg/dl TXP NO LAB FOUND Blood 02/25/2024 Historical Provider MD LAB BLOOD ORDERABLES Aida l Result TXP NO LAB FOUND * (ABNORMAL) Lipid panel (02/25/2024) SCRIBED Cholesterol, Total 165 0 - 200 TXP NO LA B FOUND SCRIBED HDL 45 40 - 60 TXP NO L AB FOUND SCRIBED LDL 61 <130 TXP NO L AB FOUND SCRIBED Triglycerides 293(A) 0 - 150 TXP NO LAB FOUND Blood 02/25/2024 Historical Provider MD LAB BLOOD ORDERABLES Aida l Result TXP NO LAB FOUND * (ABNORMAL) Tacrolimus level trough (01/25/2024) SCRIBED Tacrolimus, trough 3.7(A) 5 - 20 TXP NO LAB FOUND Blood 01/25/2024 Historical Provider LAB BLOOD ORDERABLES Edit ed Result - Final Performing Organization Address [facility] de Phone Number TXP NO [...] TXP NO LAB FOUND Blood 01/25/2024 Result [facility] Provider LAB BLOOD ORDERABLES Edit ed Result - Final Performing Organization Address [facility] de Phone Number TXP NO LAB FOUND * (ABNORMAL) Protein / creatinine ratio, urine, random (01/25/2024) SCRIBED Protein, Urine 64.4(A) 0 - 11.9 TXP NO LAB FOUND SCRIBED Creatinine, Urine 81.61 40 - 278 TXP NO LAB FOUND SCRIBED Protein/Creat Ratio 0.79(A) 0 - 0.20 TXP NO LAB FOUND Urine 01/25/2024 Result [facility] Provider LAB URINE ORDERABLES Aida l Result Performing Organization Address [facility] de Phone Number TXP NO [...] NO LAB FOUND SCRIBED eGFR in NonAfrican Panamanian 0 0 TXP NO LAB FOUND SCRIBED Urea Nitrogen (BUN) 24(A) 7 - 18 mg/dl TXP NO LAB FOUND SCRIBED eGFR in 56 >60 TXP NO LAB FOUND Blood 01/25/2024 Result [facility] Historical Provider LAB BLOOD ORDERABLES Edit ed Result - Final TXP NO LAB FOUND * (ABNORMAL) Tacrolimus level trough (12/28/2023) SCRIBED Tacrolimus, trough 2.3(A) 5 - 20 TXP NO LAB FOUND Blood 12/28/2023 Result [facility] Provider LAB BLOOD ORDERABLES Edit ed [...] k/cumm TXP NO LAB FOUND Blood 12/28/2023 Historical Provider LAB BLOOD ORDERABLES Aida l Result Performing Organization Address [facility] Co de Phone Number TXP NO LAB FOUND * (ABNORMAL) Protein / creatinine ratio, urine, random (12/28/2023) SCRIBED Protein, Urine 83.1(A) 0 - 11.9 TXP NO LAB FOUND SCRIBED Creatinine, Urine 97.43 40 - 278 TXP NO LAB FOUND SCRIBED Protein/Creat Ratio 0.85 n/a TXP NO LAB FOUND Urine 12/28/2023 [facility] Provider LAB URINE ORDERABLES Edit ed Result - Final Performing Organization Address [facility] de Phone Number TXP NO [...] NO LAB FOUND SCRIBED eGFR in NonAfrican Panamanian 55 >=60 TXP NO LAB FOUND SCRIBED Urea Nitrogen (BUN) 29(A) 7 - 18 mg/dl TXP NO LAB FOUND Blood 12/28/2023 Historical Provider LAB BLOOD ORDERABLES Edit ed Result - Final Performing Organization Address [facility] Co de Phone Number TXP NO LAB FOUND * (ABNORMAL) TSH reflex to free T4 (10/12/2022 10:23 AM CDT) TSH 7.31(H) 0.30 - 4.20 mcIUnit/mL [facility] Blood 10/12/2022 10:2 3 AM CDT 10/12/2022 10:40 AM CDT Milli GREEN LAB BLOOD ORDERABLES Aida l Result Performing Organization Address [facility] Co de Phone Number [facility] Department [place] [address] * PSA screen (09/24/2022 4:48 PM CDT) Pathologist [facility] PSA-Total 0.54 <=5.40 ng/mL [facility] Comment: Interpretive Data AGE SEX REFERENCE INTERVAL 0 minutes-150 years Female None 0 minutes-49 years Male None 50-59 years Male 0-3.90 60-69 years Male 0-5.40 70-79 years Male 0-6.20 80-150 years Male 0-6.20 The Gina PSA Total assay procedure was used. Results from different manufacturers or methods may not be comparable. Serial testing should be performed using the same method. Current interpretive data last revised 21. Blood 09/24/2022 4:48 PM CDT 09/24/2022 4:57 PM CDT Malaika Victoria MD LAB BLOOD ORDERABLES Final Result Performing Organization Address [facility] Co de Phone Number [facility] [place] [address] * Hepatitis C antibody (05/30/2019 1:17 PM CDT) Hep C Ab Nonreactive Nonreactive [facility] Blood specimen (specimen) 05/30/2019 1:17 PM CDT 05/30/2019 1:38 PM CDT us Abi Fitzpatrick NP LAB MICROBIOLOGY - GENERAL ORDERABLES Edited Result - Final [facility]ICH[facility] Department [place] [address] from Last 3 Months or Most Recently Relevant to Health Maintenance Insurance [employer] [facility] MEDICARE [facility] BLUE TRADITIONAL [place] [employer] [facility] ADVANT Advance Directives For more information, please contact: [phone] Documents on File Type Date Recorded Patient Backshoe Person Expl anation ADVANCE DIRECTIVE 04/07/2019 2:18 PM Becky lyon [email or web address] * Full Code (Latest Code Status [...] 8:43 AM 05/15/2021 12:44 PM Care Teams Solar Thermal Technician Relationship Specialty Start Date End Date Rigo Alvarenga MD PCP - General 03/31/17 Rand Collins, RN [address] [facility] [address] [place] [address] School Childcare Attendant 05/31/19 Felipe Foss MD [address] [place] [address] Medical Oncologist/Nailing Machine Operator Hematology and Oncology 01/04/23
--- OUTSIDE RECORDS SUMMARY | 2024-03-27 07:28 | XMS_ITS ---
Author Organization [facility] Address [address] [place] [address] Care Team Providers Care Staffing Associate Name Role Phone Rigo Alvarenga MD Primary Care Provider [phone] Rand Collins RN Unavailable [phone] Felipe Foss MD Unavailable [phone] Dialysis Access Sites Type Status Location Placement [...] mellitus with other specified complication, unspecified whether longitudinal float operator insulin use (HCC) Use to check [...] mellitus with other specified complication, unspecified whether longitudinal float operator insulin use (HCC) Use to read missy 3 sensor 1 each 01/01/20 23 Active cholecalciferol (VITAMIN D-3) 2000 unit tabletIndication s:Prevention of Vitamin D Deficiency Take 0.5 tablets (1,000 Units total) by mouth every morning Active FreeStyle Missy 3 [place] misc as directed Sugars have been way [...] mellitus with other specified complication, unspecified whether custodial insulin use (HCC) Inject 1 mg under the skin as needed (as needed for severe hypoglycemia ) 0.4 mL 6 06/07/19 24 Active OneTouch Verio test strips stripIndications :Type 2 diabetes mellitus with other specified complication, unspecified whether longitudinal float operator insulin use (HCC) CHECK BLOOD SUGAR [...] mellitus with other specified complication, unspecified whether longitudinal float operator insulin use (HCC) USE TO CHECK [...] mellitus with other specified complication, unspecified whether custodial insulin use (HCC) Use to check blood [...] mellitus with other specified complication, unspecified whether custodial insulin use (HCC) TAKE 1 TABLET BY MOUTH EVERY DAY 90 tablet 3 02/14/20 24 Active tirzepatide (Mounjaro) 10 mg/0.5 mL pen injector injectionIndicat ions:Type 2 diabetes mellitus with other specified complication, unspecified whether longitudinal float operator insulin use (HCC) Inject 0.5 mL (10 [...] MM on Envarsus 1mg Discharge Preferences: Lab: [facility] , [phone] standing orders q Monthly, FK,UPE, q3 HgbA1C Exp. 03/30/24 Home Health: [facility] /[phone] Local Pharmacy: [facility] in [place] [facility]: [facility] Problem Noted Date Diagnosed [...] cardiology follow up. Discussed plan with attending dance therapist. HEATHER on CPAP 09/25/2022 Assessment & Plan [...] further with Dr. Yu. Will proceed with [facility] to better assess volume status and [...] week. Continue Farxiga. Will discuss with Dr. uY regarding any further work up at this [...] (04/30/2022): Added automatically from request for surgery [id number] Encounter for preadmission testing 04/24/2022 LAYO (acute [...] gluconate, insulin, and kayaxelate -upon arrival to [facility], K 6.0, WBK 5.6 no additional therapies given -Repeat K and WBK on arrival, manage as appropriate -likely transfer to floor later this morning -renal transplant consult in AM -hold bactrim for time being as could be contributing to hyperkalemia, resume pending transplant nephrology recs ([facility] medication) BPH (benign prostatic hyperplasia) 06/20/2019 Assessment & Plan (06/20/2019 4:45 AM CDT): Continue home flomax Kidney transplant recipient 05/31/2019 Assessment & Plan (09/21/2022 10:01 AM CDT): -long term care phlebotomist use of immunosuppressants and steroids complicates diabetes management. Assessment & Plan (05/04/2022 8:32 AM CDT): -longterm use of immunosuppressants and steroids complicates diabetes [...] function 05/31/2019 ESRD (end stage renal disease) ([facility]) 020 Overview (05/30/2019): Added automatically from request for surgery [id number] Pruritus 08/10/2018 ESRD (end stage renal disease) [...] 11/06/2009 Systemic lupus erythematosus (SLE) in adult ([facility]) 11/06/2009 Immunizations Name Administration Dates Next Due [...] week 09/29/2022 How often do you attend [facility] or sikh services? More than 4 times per year 09/29/2022 Do you belong to any clubs o r organizations such as congregational groups, unions, fraternal or athletic groups, or [...] place to sleep or slept in a group home (including now)? No 09/29/2022 Personal Safety Answer Date Recorded Have you ever been in or are you currently in a harmful physical or emotional relationship or is someone making you feel afraid or unsafe? 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85 03/15/2024 11:09 AM LANDSCAPE NURSERYMAN Results * (ABNORMAL) Tacrolimus level trough (02/25/2024) [...] ed Result - Final Performing Organization Address [facility] Co de Phone Number TXP NO LAB FOUND * (ABNORMAL) Albumin Creatinine Ratio, Urine (02/25/2024) SCRIBED Creatinine, Urine 102.95 40 - 278 TXP NO LAB FOUND SCRIBED Microalbumin >400.00 n/a TXP NO LAB FOUND SCRIBED Microalb/Creat Ratio 388.5(A) 0 - 30 TXP NO LAB FOUND Urine 02/25/2024 Result [facility] Provider LAB URINE ORDERABLES Edit ed Result - Final Performing Organization Address [facility] de Phone Number TXP NO LAB FOUND * Hemoglobin A1c (02/25/2024) SCRIBED Hemoglobin A1c 7.7 <57 % TXP NO LAB FOUND Blood 02/25/2024 [facility] Provider LAB BLOOD ORDERABLES Aida l Result Performing Organization Address [facility] de Phone Number TXP NO LAB [...] ORDERABLES Aida l Result Performing Organization Address [facility] Co de Phone Number TXP NO LAB [...] NO LAB FOUND SCRIBED eGFR in NonAfrican Nepalese 49 >60 TXP NO LAB FOUND SCRIBED Urea Nitrogen (BUN) 33(A) 7 - 18 mg/dl TXP NO LAB FOUND Blood 02/25/2024 Result [facility] Historical Provider LAB BLOOD ORDERABLES Aida l Result Performing Organization Address [facility] Co de Phone Number TXP NO LAB FOUND * (ABNORMAL) Lipid panel (02/25/2024) SCRIBED Cholesterol, Total 165 0 - 200 TXP NO LA B FOUND SCRIBED HDL 45 40 - 60 TXP NO L AB FOUND SCRIBED LDL 61 <130 TXP NO L AB FOUND SCRIBED Triglycerides 293(A) 0 - 150 TXP NO LAB FOUND Blood 02/25/2024 Result [facility] Provider LAB BLOOD ORDERABLES Aida l Result Performing Organization Address City/[facility]/ZIP Co de Phone Number TXP NO LAB FOUND * (ABNORMAL) Tacrolimus level trough (01/25/2024) SCRIBED Tacrolimus, trough 3.7(A) 5 - 20 TXP NO LAB FOUND Blood 01/25/2024 Historical Provider LAB BLOOD ORDERABLES Edit ed Result - Final Performing Organization Address [facility] de Phone Number TXP NO LAB [...] TXP NO LAB FOUND Blood 01/25/2024 Result [facility] Historical Provider LAB BLOOD ORDERABLES Edit ed Result - Final Performing Organization Address [facility] de Phone Number TXP NO LAB FOUND * (ABNORMAL) Protein / creatinine ratio, urine, random (01/25/2024) SCRIBED Protein, Urine 64.4(A) 0 - 11.9 TXP NO LAB FOUND SCRIBED Creatinine, Urine 81.61 40 - 278 TXP NO LAB FOUND SCRIBED Protein/Creat Ratio 0.79(A) 0 - 0.20 TXP NO LAB FOUND Urine 01/25/2024 Result [facility] Historical Provider LAB URINE ORDERABLES Aida l Result Performing Organization Address [facility] de Phone Number TXP NO LAB [...] NO LAB FOUND SCRIBED eGFR in NonAfrican Nepalese 0 0 TXP NO LAB FOUND SCRIBED Urea Nitrogen (BUN) 24(A) 7 - 18 mg/dl TXP NO LAB FOUND SCRIBED eGFR in 56 >60 TXP NO LAB FOUND Blood 01/25/2024 Historical Provider MD LAB BLOOD ORDERABLES Edit ed Result - Final Performing Organization Address [facility] de Phone Number TXP NO LAB FOUND * (ABNORMAL) Tacrolimus level trough (12/28/2023) Pathologist [facility] SCRIBED Tacrolimus, trough 2.3(A) 5 - 20 TXP NO LAB FOUND Blood 12/28/2023 Historical Provider MD LAB BLOOD ORDERABLES Edit ed Result - Final Performing Organization Address [facility]/State/ZIP Co de Phone Number TXP NO LAB [...] Result TXP NO LAB FOUND * (ABNORMAL) Protein / creatinine ratio, urine, random (12/28/2023) SCRIBED Protein, Urine 83.1(A) 0 - 11.9 TXP NO LAB FOUND SCRIBED Creatinine, Urine 97.43 40 - 278 TXP NO LAB FOUND SCRIBED Protein/Creat Ratio 0.85 n/a TXP NO LAB FOUND Urine 12/28/2023 Result [facility] Provider LAB URINE ORDERABLES Edit ed Result - Final TXP NO LAB FOUND * (ABNORMAL) Renal [...] NO LAB FOUND SCRIBED eGFR in NonAfrican Nepalese 55 >=60 TXP NO LAB FOUND SCRIBED Urea Nitrogen (BUN) 29(A) 7 - 18 mg/dl TXP NO LAB FOUND Blood 12/28/2023 us Historical Provider LAB BLOOD ORDERABLES Edit ed Result - Final Performing Organization Address City/[facility] Co de Phone Number TXP NO LAB FOUND * (ABNORMAL) TSH reflex to free T4 (10/12/2022 10:23 AM CDT) TSH 7.31(H) 0.30 - 4.20 mcIUnit/mL [facility] Blood 10/12/2022 10:2 3 AM CDT 10/12/2022 10:40 AM CDT Milli GREEN LAB BLOOD ORDERABLES Aida l Result Performing Organization Address [facility] de Phone Number [facility] Department [place] [address] * PSA screen (09/24/2022 4:48 PM CDT) PSA-Total 0.54 <=5.40 ng/mL [facility] Comment: Interpretive Data AGE SEX REFERENCE [...] BLOOD ORDERABLES Final Result Performing Organization Address [facility]/ZIP Co de Phone Number [facility] [place] [address] * Hepatitis C antibody (05/30/2019 1:17 PM CDT) Hep C Ab Nonreactive Nonreactive [facility] Blood specimen (specimen) 05/30/2019 1:17 PM CDT 05/30/2019 1:38 PM CDT Abi Fitzpatrick NP LAB MICROBIOLOGY - GENERAL ORDERABLES Edited Result - Final [facility]ICH[facility] [employer] [place] [address] from Last 3 Months or Most Recently Relevant to Health Maintenance
--- OUTSIDE RECORDS SUMMARY | 2024-03-27 07:28 | XMS_ITS | Encounter Summary ---
Author Organization [facility] Address [address] [place] [address] Phone Care Team Providers Care Recycler Name Role Phone Rigo Alvarenga MD Primary Care Provider [phone] Malgorzata Edwards RN Unavailable [phone] Marguerite Carson Unavailable Unavail able Tamy Arcos RN Unavailable [phone] Chase Durbin MD Unavailable [phone] Pavithra Tavarez RN Unavailable Rand Collins RN Unavailable [phone] Felipe Foss MD Unavailable [phone] Encounter Details Date Type Department Care Team (Latest Contact Info) Description 04/01/2017 Orders Only [facility] CONVERSION Scanning, Provider Social History Tobacco Use Types Packs/Day Years Used Date Smoking Tobacco: Never Sex and Gender Information Value Date Recorded Sex Assigned at Not on file Legal Sex Male 12:49 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 Gender Identity Not on file Sexual Orientation Not on file documented as of this encounter Plan of Treatment Not on file documented as of this encounter Procedures Procedure Name Priority Date/Time Associated Diagnosis Comments VASCULAR LABORATORY REPORT 04/01/2017 11:02 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 documented in this encounter Results * VASCULAR LABORATORY REPORT (04/01/2017 11:02 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) Anatomical Region Laterality Modality Ultrasound us Provider [...] documented as of this encounter Care Teams Recycler Relationship Specialty Start Date End Date Rigo Alvarenga MD PCP - General 03/31/17 Malgorzata Edwards RN [address] [address] Corporate Scheduler 07/13/17 8 Marguerite Carson Corporate Scheduler 07/23/17 08/10/17 Tamy Arcos RN [address] [address] Corporate Scheduler 08/11/17 Chase Durbin MD [address] [facility] [address] [place] [address] User Support Analyst Supervisor Nephrology 03/23/19 11/23/19 Pavithra Tavarez RN [address] [address] Corporate Scheduler 03/30/19 0 Rand Collins RN [address] [address] Corporate Scheduler 05/31/19 Felipe Foss MD [address] [place] [address] Medical Oncologist/Basket Braider Hematology and Oncology 01/04/23 documented as of this encounter
--- OUTSIDE RECORDS SUMMARY | 2024-03-27 07:28 | XMS_ITS ---
Author Organization [facility] Address [address] [place], [place] [address] Care Team Providers Care Electronic Console Display Operator Name Role Phone MELA VENTURA Unavailable [phone] Rigo Alvarenga Unavailable Unavailable ALVIN JUNIOR Unavailable [phone] Allergies Allergen (clinical drug ingredient) Drug/Non Drug [...] Active Encounters Encounter Location Date Provider Diagnosis [address] [id number] 10/07/2023 ALVIN DAVYDOV Unspecified atherosclerosis of [place] arteries of extremities, bilateral legs I70.203 and Tinea pedis B35.3 Assessments Encounter Date Diagnosis (ICD Code) Assessment Notes Treatment Notes Treatment Clinical Notes Section Notes 10/07/2023 Unspecified atherosclerosis of [place] arteries of extremities, bilateral legs (ICD-10 - [...] Treatment Notes Assessment Notes Unspecified atherosclerosis of [place] arteries of extremities, bilateral legs Patient educated [...] Notes * HUSSAIN SARGENTDOB:1960 (63 yo M)Acc No.[id number]:10/07/2023 Patient: Onel HUSSAIN BARKSDALE Provider: Onel JUNIOR :1960 A ge:63 Y S ex:Male Date:10/07/2023 [facility] Subjective: * Chief Complaints: * 1 . Athletes foot check. * HPI: H PI: Follow Up Visit P atient presents for follow-up visit for athletes foot. Patient states that the cream given to him helped with the spots on his feet. Patient states that the right third toenail is sticking up and bothering him. , MA: lazara. * ROS: G eneral / Constitutional: Patient denies w eakness. R espiratory: Patient denies c hronic cough, shortness of breath, sputum production. C ardiovascular: Patient denies c hest pain, history of [place], irregular heartbeat. M usculoskeletal: Patient denies a rthritis, joint stiffness. ? P eripheral Vascular: Patient denies b lanching of skin, cold extremities, decreased sensation in extremities. S kin: Patient complains of f ungal nails, nail changes. ? N eurologic: Patient denies d izziness, gait abnormality, headache. * Medical History: * Medications: T aking Mounjaro , Taking Basaglar KwikPen , Taking [...] 1 application Externally Twice a day * Allergies: D uloxetine, Prednisone, Lisinopril, Codeine. Objective: * Examination: P hysical Examination: V ascular: Dorsalis Pedis pulse noted at 1/4 right [...] first metatarsophalangeal joint bilaterally. Assessment: * Assessment: 1. T inea pedis - B35.3 (Primary) 2 . U nspecified atherosclerosis of [place] arteries of extremities, bilateral legs - I70.203 Plan: * Treatment: 2. U nspecified atherosclerosis of [place] arteries of extremities, bilateral legs Notes: Patient educated on risks and aggravating factors of PVD, including conservative treatment options such as a diet and exercise regimen to aid in slowing progression of vascular disease ? * Follow Up: 3 Months * Billing Information: * Visit Code: 17482 Office Visit, Est Pt., Level 3. * Procedure Codes: * Sign off status: Completed true * Provider: Onel JUNIOR Date: 0 10/07/2023 Generated for Bibiana Moralez on: 0 03/27/2024 07:28 AM PHOTO RETOUCHER History and Physical Notes * HPI (History [...]
--- OUTSIDE RECORDS SUMMARY | 2024-03-27 07:28 | XMS_ITS | Referral Summary ---
Author Organization [facility] Address [address] [place] [address] Care Team Providers Care Integrated Circuit Fabricator Name Role Phone Rigo Alvarenga MD Primary Care Provider [phone] Rand Collins RN Unavailable [phone] Felipe Foss MD Unavailable [phone] Encounters Date Type Department Care Team Description 03/15/2024 11:00 AM HEAD GOLF PROFESSIONAL Office Visit [facility] Endocrinology Metabolism and Lipid [address] [facility] [address]th [place] [address] [place] [address] Brian Ambrose MD Type 2 diabetes mellitus with other specified complication, unspecified whether intermission coordinator insulin use (HCC) (Primary Dx); Dyslipidemia; Vitamin D deficiency 03/01/2024 Telephone [facility] Endocrinology Metabolism and Lipid [address] [facility] [address] 13[address] [place] [address] [place] [address] Isis Harper, process laboratory specialist results high triglycerides 02/29/2024 Lab [facility] and [facility] Transplant Kidney [address] [facility] [address] Mailstop [phone] [place] [address] Arturo Garcia MD 02/18/2024 Telephone [facility] Endocrinology Metabolism and Lipid [address] [facility] [address] 13th [place] [address] [place] [address] Isis Harper, RN titrate mounjaro from 7.5 mg to 10 mg 01/26/2024 Lab [facility] and [facility] Transplant Kidney [address] [facility] [address] [phone] [place] [address] Arturo Garcia MD 01/25/2024 Lab [facility] and [facility] Transplant Kidney [address] [facility] [address] Mailstop [phone] [place] [address] Arturo Garcia MD 01/11/2024 Orders Only [facility] Endocrinology Metabolism and Lipid [address] [facility] 13[address] [place] [address] [place] [address] Holly Cordon NP 01/11/2024 Telephone [facility] Endocrinology Metabolism and Lipid [address] [facility] 13th [place] [address] [place] [address] Dagmar Kearns RMA New Rx Request 01/07/2024 Telephone [facility] and [facility] Transplant Kidney [address] [facility] [address] Mailstop [phone] [place] [address] Rand Collins RN 01/06/2024 9:30 AM HEAD GOLF PROFESSIONAL Telemedicine [facility] Hematology [address] [facility] [address] [place] [phone] Felipe Foss MD Multiple myeloma not having achieved remission (CMS/HCC) (HCC) 01/06/2024 1:15 PM HEAD GOLF PROFESSIONAL Office Visit [facility] Cardiology [address] [facility] 8[address] [place] [address] [place] [address] Flaquito Yu MD Chronic diastolic heart failure (HCC) (Primary Dx); Secondary hypertension; Dyslipidemia 12/31/2023 Lab [facility] and [facility] Transplant Kidney [address] [facility] [address]stop [phone] [place] [address] Arturo Garcia MD 12/28/2023 Telephone [facility] Endocrinology Metabolism and Lipid [address] [facility] [address] [place] [phone] Jigna Laguna, RN LOST MISSY 3 12/28/2023 Lab [facility] and [facility] Transplant Kidney [address] [facility] [address] Mailstop [phone] [place] [address] Arturo Garcia MD 12/28/2023 Lab [facility] and [facility] Transplant Kidney [address] [facility] [address] Mailstop [phone] [place] [address] Arturo Garcia MD from Last 3 Months Allergies Active Allergy [...] mellitus with other specified complication, unspecified whether correction insulin use (HCC) Use to check blood [...] mellitus with other specified complication, unspecified whether intermission coordinator insulin use (HCC) Use to read missy 3 sensor 1 each 01/01/20 23 Active cholecalciferol (VITAMIN D-3) 2000 unit tabletIndication s:Prevention of Vitamin D Deficiency Take 0.5 tablets (1,000 Units total) by mouth every morning Active FreeStyle Missy 3 [place] misc as directed Sugars have been way [...] mellitus with other specified complication, unspecified whether correction insulin use (HCC) Inject 1 mg under the skin as needed (as needed for severe hypoglycemia ) 0.4 mL 6 06/07/19 24 Active OneTouch Verio test strips stripIndications :Type 2 diabetes mellitus with other specified complication, unspecified whether intermission coordinator insulin use (HCC) CHECK BLOOD SUGAR 3 TIMES A DAY 100 strip 06/17/19 24 Active allopurinoL (ZYLOPRIM) 100 mg tablet Take 1 tablet (100 mg total) by mouth daily 30 tablet 06/24/19 24 Active pyridoxine (VITAMIN B-6) 100 mg tablet Take 1 tablet (100 mg total) by mouth daily Active lancets (OneTouch Delica Plus Lancet) 30 gauge miscIndications: Type 2 diabetes mellitus with other specified complication, unspecified whether correction insulin use (HCC) USE TO CHECK BLOOD [...] day with meals 60 tablet 12/20/19 24 025 Active FreeStyle Missy 3 Sensor deviceIndication s:Type 2 diabetes mellitus with other specified complication, unspecified whether intermission coordinator insulin use (HCC) Use to check blood [...] mellitus with other specified complication, unspecified whether correction insulin use ([facility]) TAKE 1 TABLET BY MOUTH EVERY DAY 90 tablet 3 02/14/20 24 Active tirzepatide (Mounjaro) 10 mg/0.5 mL pen injector injectionIndicat ions:Type 2 diabetes mellitus with other specified complication, unspecified whether intermission coordinator insulin use ([facility]) Inject 0.5 mL (10 mg total) under the skin every 7 days 2 mL 03/15/19 Active cyclobenzaprine (FLEXERIL) 10 mg tabletIndication s:Muscle Spasm Take 1 tablet (10 mg total) by mouth as needed for muscle spasms 03/04/19 24 025 Discontinued insulin glargine (BASAGLAR) 100 unit/mL (3 mL) pen for injectionIndicat ions:Type 2 diabetes mellitus with other specified complication ([facility]) INJECT 14 UNITS UNDER THE SKIN AT BEDTIME 15 mL 3 05/24/19 24 025 Discontinued montelukast (SINGULAIR) 10 mg tablet 06/10/19 24 025 Discontinued acyclovir (ZOVIRAX) 400 mg tabletIndication s:Multiple myeloma not having achieved remission (CMS/HCC) ([facility]) Take 1 tablet (400 mg total) by [...] MM on Envarsus 1mg Discharge Preferences: Lab: [facility] , [phone] standing orders q Monthly, FK,UPE, q3 HgbA1C Exp. 03/30/24 Home Health: [facility] /[phone] Local Pharmacy: [facility] in [place] [facility]: [facility] Problem Noted Date Diagnosed Date Peripheral polyneuropathy 10/21/2023 Weakness 03/17/2023 NSTEMI (non-ST elevated myocardial infarction) ( CMS/HCC) 02/12/2023 Multiple myeloma not having achieved remission ( CMS/[facility]) 01/06/2023 Infiltrative cardiomyopathy 10/30/2022 Assessment & Plan [...] cardiology follow up. Discussed plan with attending template maker. HEATHER on CPAP 09/25/2022 Assessment & Plan [...] able WHO group 2 pulmonary arterial hypertension /0 08/2022 Assessment & Plan (10/30/2022 10:26 AM [...] further with Dr. Yu. Will proceed with [facility] to better assess volume status and [...] (04/30/2022): Added automatically from request for surgery [id number] Encounter for preadmission testing 04/24/2022 LAYO (acute [...] gluconate, insulin, and kayaxelate -upon arrival to [facility] ED, K 6.0, WBK 5.6 no additional therapies given -Repeat K and WBK on arrival, manage as appropriate -likely transfer to floor later this morning -renal transplant consult in AM -hold bactrim for time being as could be contributing to hyperkalemia, resume pending transplant nephrology recs (MWF medication) BPH (benign prostatic hyperplasia) 06/20/2019 Assessment & Plan (06/20/2019 4:45 AM CDT): Continue home flomax Kidney transplant recipient 05/31/2019 Assessment & Plan (09/21/2022 10:01 AM CDT): -intermission coordinator use of immunosuppressants and steroids complicates diabetes management. Assessment & Plan (05/04/2022 8:32 AM CDT): -intermission coordinator use of immunosuppressants and steroids complicates diabetes [...] function 05/31/2019 ESRD (end stage renal disease) ([facility]) 020 Overview (05/30/2019): Added automatically from request for surgery [id number] Pruritus 08/10/2018 ESRD (end stage renal disease) [...] 11/06/2009 Systemic lupus erythematosus (SLE) in adult ([facility] 11/06/2009 Resolved Problems Problem Noted Date Diagnosed Date Resolved Date Hypotension 11/25/2022 08/26/2023 Elevated brain natriuretic p eptide (BNP) level 07/17/2022 08/26/2023 ESRD (end stage renal disease) ([facility]) 11/18/2017 05/10/2018 Overview (11/18/2017): Added automatically from request for surgery [id number] Peritoneal dialysis catheter tunnel infection 10/28/19 18 09/12/2018 Overview (10/27/2017): Added automatically from request for surgery [id number] End-stage renal disease on h emodialysis ([facility]) 10/07/2017 05/10/2018 Overview (10/07/2017): Added automatically from request for surgery [id number] Stage 4 chronic kidney disease ([facility] [...] often do you attend chur ch or shinto services? More than 4 times per year 09/29/2022 Do you belong to any clubs o r organizations such as caodaism groups, unions, fraternal or athletic groups, or [...] place to sleep or slept in a fdc (including now)? No 09/29/2022 Personal Safety Answer Date Recorded Have you ever been in or are you currently in a harmful physical or emotional relationship or is someone making you feel afraid or unsafe? Denies 05/03/2023 Sex and Gender Information Value Date Recorded Sex Assigned at Not on file Legal Sex Male 12:49 PM HEAD GOLF PROFESSIONAL Gender Identity Not on file Sexual Orientation Not on file Last Filed Vital Signs Vital Sign Reading Time Taken Comments Blood Pressure 145/78 03/15/2024 11:09 AM HEAD GOLF PROFESSIONAL Pulse 66 03/15/2024 11:09 AM HEAD GOLF PROFESSIONAL Temperature 36.8 C (98.2 F) 03/15/2024 11:09 AM HEAD GOLF PROFESSIONAL Respiratory Rate 18 12/15/2023 11:24 AM CDT Oxygen Saturation 98% 01/06/2024 12:56 PM HEAD GOLF PROFESSIONAL Inhaled Oxygen Concentration - - Weight 83.6 kg (184 lb 3.2 oz) 03/15/2024 11:09 AM HEAD GOLF PROFESSIONAL Height 170.2 cm (5' 7 ) 03/15/2024 11:09 AM HEAD GOLF PROFESSIONAL Body Mass Index 28.85 03/15/2024 11:09 AM HEAD GOLF PROFESSIONAL Plan of Treatment Not on file Medical Devices Implanted Type Area Sales Administration Specialist Device Identifier Shelf Expiration Date Model / Serial / Lot [employer] Miguel Angio-Seal Vip 6fr Closere Device [id number] - [id number] - [id number] Implanted:Qty: 1 on 05/04/2022 by Juan Alston MD at [facility] Vascular Closure Device Left: Femoral [employer] Miguel 01/14/2023 [id number] / [id number] / [id number] 2 [employer] [id number] [place] Acuseal 4-7mm 45cm Taper Graft Vascular Sterile - [id number] - [id number] Implanted:Qty: 1 on 11/01/2017 by Ace Paayn MD at [facility] Left: Arm [employer] 04/22/2020 [id number] / [id number] / Explanted Type Area Sales Administration Specialist Device Identifier Shelf Expiration Date Model / Serial / Lot [employer] [id number] Universa 6fr 22cm Radiopaque Tip Positioner Nuclear Station Operator Braid - [id number] Implanted:Qty: 1 on 05/30/2019 by Rosario Colbert MD at [facility] Explanted:Qty: 1 on 07/06/2019 by Con Shelby NP Stent Left: Ureter [employer] 08/21/2023 [id number] / / Description:Transplanted ure ter Procedures Procedure [...] TXP NO LAB FOUND Urine 02/25/2024 Result [facility] Provider LAB URINE ORDERABLES Edit ed Result - Final Performing Organization Address [facility] Co de Phone Number TXP NO LAB FOUND * Hemoglobin A1c (02/25/2024) SCRIBED Hemoglobin A1c 7.7 <57 % TXP NO LAB FOUND Blood 02/25/2024 Result [facility] Provider LAB BLOOD ORDERABLES Aida l Result Performing Organization Address [facility] de Phone Number TXP NO LAB [...] TXP NO LAB FOUND Blood 02/25/2024 Result [facility] Provider LAB BLOOD ORDERABLES Aida l Result Performing Organization Address [facility] de Phone Number TXP NO LAB [...] NO LAB FOUND SCRIBED eGFR in NonAfrican [place] 49 >60 TXP NO LAB FOUND SCRIBED Urea Nitrogen (BUN) 33(A) 7 - 18 mg/dl TXP NO LAB FOUND Blood 02/25/2024 Result [facility] Historical Provider LAB BLOOD ORDERABLES Aida l Result TXP NO LAB FOUND * (ABNORMAL) Lipid panel (02/25/2024) SCRIBED Cholesterol, Total 165 0 - 200 TXP NO LA B FOUND SCRIBED HDL 45 40 - 60 TXP NO L AB FOUND SCRIBED LDL 61 <130 TXP NO L AB FOUND SCRIBED Triglycerides 293(A) 0 - 150 TXP NO LAB FOUND Blood 02/25/2024 Result [facility] Provider LAB BLOOD ORDERABLES Aida l Result TXP NO LAB FOUND * (ABNORMAL) Tacrolimus level trough (01/25/2024) SCRIBED Tacrolimus, trough 3.7(A) 5 - 20 TXP NO LAB FOUND Blood 01/25/2024 Result [facility] Historical Provider LAB BLOOD ORDERABLES Edit ed Result - Final Performing Organization Address [facility] de Phone Number TXP NO [...] TXP NO LAB FOUND Blood 01/25/2024 Result [facility] Historical Provider LAB BLOOD ORDERABLES Edit ed Result - Final Performing Organization Address [facility] Phone Number TXP NO LAB FOUND * (ABNORMAL) Protein / creatinine ratio, urine, random (01/25/2024) SCRIBED Protein, Urine 64.4(A) 0 - 11.9 TXP NO LAB FOUND SCRIBED Creatinine, Urine 81.61 40 - 278 TXP NO LAB FOUND SCRIBED Protein/Creat Ratio 0.79(A) 0 - 0.20 TXP NO LAB FOUND Urine 01/25/2024 Historical Provider LAB URINE ORDERABLES Aida l Result Performing Organization Address [facility] de Phone Number TXP NO [...] NO LAB FOUND SCRIBED eGFR in NonAfrican [place] 0 0 TXP NO LAB FOUND SCRIBED Urea Nitrogen (BUN) 24(A) 7 - 18 mg/dl TXP NO LAB FOUND SCRIBED eGFR in 56 >60 TXP NO LAB FOUND Blood 01/25/2024 Historical Provider LAB BLOOD ORDERABLES Edit ed Result - Final Performing Organization Address [facility] de Phone Number TXP NO LAB FOUND * (ABNORMAL) Tacrolimus level trough (12/28/2023) SCRIBED Tacrolimus, trough 2.3(A) 5 - 20 TXP NO LAB FOUND Blood 12/28/2023 Result [facility] Historical Provider LAB BLOOD ORDERABLES Edit ed Result - Final Performing Organization Address [facility] de Phone Number TXP NO LAB [...] ORDERABLES Aida l Result Performing Organization Address [facility] de Phone Number TXP NO LAB FOUND * (ABNORMAL) Protein / creatinine ratio, urine, random (12/28/2023) SCRIBED Protein, Urine 83.1(A) 0 - 11.9 TXP NO LAB FOUND SCRIBED Creatinine, Urine 97.43 40 - 278 TXP NO LAB FOUND SCRIBED Protein/Creat Ratio 0.85 n/a TXP NO LAB FOUND Urine 12/28/2023 [facility] Provider MD LAB URINE ORDERABLES Edit ed Result - Final Performing Organization Address [facility] de Phone Number TXP NO [...] NO LAB FOUND SCRIBED eGFR in NonAfrican [place] 55 >=60 TXP NO LAB FOUND SCRIBED Urea Nitrogen (BUN) 29(A) 7 - 18 mg/dl TXP NO LAB FOUND Blood 12/28/2023 Historical Provider LAB BLOOD ORDERABLES Edit ed Result - Final Performing Organization Address [facility] de Phone Number TXP NO LAB FOUND * (ABNORMAL) TSH reflex to free T4 (10/12/2022 10:23 AM CDT) TSH 7.31(H) 0.30 - 4.20 mcIUnit/mL [facility] Blood 10/12/2022 10:2 3 AM CDT 10/12/2022 10:40 AM CDT Milli GREEN LAB BLOOD ORDERABLES Aida l Result Performing Organization Address City/[facility]/ZIP Co de Phone Number [facility] [place] [employer] [address] * PSA screen (09/24/2022 4:48 PM CDT) Pathologist [facility] PSA-Total 0.54 <=5.40 ng/mL [facility] Comment: Interpretive Data AGE SEX REFERENCE INTERVAL [...] Victoria MD LAB BLOOD ORDERABLES Final Result [facility] Department [place] [employer] [place] [address] * Hepatitis C antibody (05/30/2019 1:17 PM CDT) Hep C Ab Nonreactive Nonreactive [facility] Blood specimen (specimen) 05/30/2019 1:17 PM CDT 05/30/2019 1:38 PM CDT Abi Fitzpatrick NP LAB MICROBIOLOGY - GENERAL ORDERABLES Edited Result - Final [facility] Department [place] [address] from Last 3 Months or Most Recently Relevant to Health Maintenance Insurance [employer] [facility] MEDICARE IDFL BLUE TRADITIONAL DE [employer] [facility] Advance Directives For more information, please contact: [phone] Documents on File Type Date Recorded Patient Title Manager Expl anation ADVANCE DIRECTIVE 04/07/2019 2:18 PM [...] 8:43 AM 05/15/2021 12:44 PM Care Teams Integrated Circuit Fabricator Relationship Specialty Start Date End Date Rigo Alvarenga MD PCP - General 03/31/17 Rand Collins, RN [address] [facility] [address] [place] [address] Trauma Director 05/31/19 Felipe Foss MD [address] [place] [address] Medical Oncologist/Caregivers Non Medical Hematology and Oncology 01/04/23
--- OUTSIDE RECORDS SUMMARY | 2024-03-27 07:29 | XMS_ITS | Encounter Summary ---
Author Organization [facility] Healthcare Address [address] [place] [address] Care Team Providers Care Foundry Laborer Coreroom Name Role Phone Rigo Alvarenga MD Primary Care Provider [phone] Rand Collins RN Unavailable [phone] Felipe Foss MD Unavailable [phone] Encounter Details Date Type Department Care Team (Late st Contact Info) Description 10/16/2021 Telephone [facility] [address] [facility] [address] [place] [address] Rigo Alvarenga MD [address] [place] [address] Social History Tobacco Use Types [...] often do you attend chur ch or pentecostal services? More than 4 times per year [...] on file Legal Sex Male 12:49 PM MEETING MANAGER Gender Identity Not on file Sexual Orientation Not on file documented as of this encounter Plan of Treatment Not on file documented as of this encounter Visit Diagnoses Not on filedocumented in this encounter Care Teams Foundry Laborer Coreroom Relationship Specialty Start Date End Date Rigo Alvarenga MD PCP - General 03/31/17 Rand Collins RN [address] [place] [address] Referral Nurse 05/31/19 Felipe Foss MD [address] [place] [address] Medical Oncologist/Police Matron Hematology and Oncology 01/04/23 documented as of this encounter
--- OUTSIDE RECORDS SUMMARY | 2024-03-27 07:29 | XMS_ITS | Encounter Summary ---
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
--- OUTSIDE RECORDS SUMMARY | 2024-03-27 07:29 | XMS_ITS | Data Portability ---
Author Organization [place] [facility] [employer], Main Office Address [address] [place] [address] Care Team Providers Care Slitting Machine Operator Name Role Phone FELICIA NEELY Primary Care Provider DANIAL GENTILE Binding Folder Machine JORGE BEAR Senior Information Security Consultant [phone] MEENU STOVER High School Guidance Counselor USHA BLAIR Sheet Metal Contractor QUENTIN ADHIKARI Neurologist Assessment No assessment recorded. Plan of Treatment Reminders Order Date Submit Date Provider Last Modified By Organization Details Last Modified Time Details Appointments None recorded. Lab None recorded. Referral None recorded. Procedures None recorded. Surgeries None recorded. Imaging None recorded. Medication Orders cefdinir 300 mg capsule 2022 023 [id number], [address] [place], [address], 4 14:19:24 cefdinir 300 mg capsule 2023 024 [place] [id number], [address] [place], [address], 4 15:21:56 Patient TargetsNo targets recorded. Patient Instructions Encounter Date Encounter Id Patient Instructions Last Modified By Organization Details Last Modified Time 02/11/2023 [id number] this patient's symptoms are consistent with chronic sinusitis but with a history of multiple myeloma imaging is required [email or web address] Not available 02/11/2023 11:55:18 Reason for Referral None Reported. Results Created Date Observation Date Name Description Value Unit Range Abnormal Flag Note LastModifiedBy Organization Detail LastModifiedTime 02/17/19 24 02/12/2023 CT, sinus es, w/o contr ast No observ ation record ed. [address] [place], [address], 02/17/2023 14:40:43 02/18/19 24 02/12/2023 CT, sinus es, w/o contr ast No observ ation record ed. [address] [place], [address], 02/22/2023 15:44:23 06/28/19 24 06/25/2023 CT, head, w/ contr ast No observ ation record ed. [address] [place], [address], 06/28/2023 12:41:54 07/02/19 24 06/25/2023 CT, head, w/ contr ast No observ ation record ed. [address]) [address] [place], [address], 07/06/2023 09:39:15 07/13/19 24 07/13/2023 audio gram + tympa nogra m No observ ation record ed. [id number] Not Available 2023 16:19:29 07/16/19 24 07/16/2023 audio gram + tympa nogra m No observ ation record ed. [facility] (Audiology) [address] [place] [address] [place] [address], [address], 07/16/2023 11:10:06 Result Notes None recorded. Problems Name Problem SNOMED Code Status Onset Date Resolution Date Notes Provider Name and Address Organization Details Recorded Time Chronic sinusitis 76147050 Active 2022 Marguerite Shoemaker RN null, [facility] 11:52:03 Sensorineural hearing loss 60696300 Active 2023 Marguerite Shoemaker RN null, [facility] 4 15:13:31 Multiple myeloma 848989736 Active 2023 Marguerite Shoemaker RN null, [facility] 4 15:13:44 Bilateral chronic serous otitis 905716457 Active 2023 Gaston Calderon MD [address] [facility], [facility] [address], [place], [address] [place] [address] [employer] [facility] [employer] 4 15:21:09 Problem Notes None recorded. Procedures Surgical History Date Name Laterality Status Provider Name and Address Organization Details Recorded Time Kidney completed ISAIAH Ribeiro [facility] 01/12/2023 13:00:19 Imaging Results Imaging Date Name Status LastModified by Organiz ation Details LastModified Time 02/12/2023 CT, sinuses, w/o contrast completed [email or web address] [facility] [address] [place], [address], 02/17/2023 14:40:43 02/12/2023 CT, sinuses, w/o contrast completed [email or web address] [facility] [address] [place], [address], 02/22/2023 15:44:23 06/25/2023 CT, head, w/ contrast completed [email or web address] [facility] [address] [place], [address], 06/28/2023 12:41:54 06/25/2023 CT, head, w/ contrast completed [email or web address] [facility]) [address] [place], [address], 07/06/2023 09:39:15 07/13/2023 audiogram + tympanogram completed [email or web address] Information not available 07/13/2023 16:19:29 07/16/2023 audiogram + tympanogram completed [facility] (Audiology) [address] [place] [address], [address], 07/16/2023 11:10:06 Procedure Notes None recorded. Medical Equipment None Reported. Allergies Allergen ID Allergen Name Allergen Category Reaction Reaction Severity Criticality Documentation Date Start Date Code Code System Note Provider Name and Address Organization Details Recorded Time 62413 prednison e medicatio n rash Not available Not available 01/12/2023 8640 RxNorm PT REPOR TS HIGH DOSAG ES OF PREDN ISONE [facility]USE S [facility] 12:48:29 17053 lisinopri l medicatio n cough Not available Not available 01/12/2023 78737 RxNorm CAUSE S DRY COUGH [facility] 12:48:56 48035 codeine medicatio n cough Not available Not available 01/12/2023 2670 RxNorm [facility]H Ribeiro [facility] 3 12:49:09 15939 duloxetin e medicatio n hallucina tions severe Not available 01/12/2023 13392 RxNorm [facility]H [facility]ibeiro [facility] 12:49:34 Medications Name Sig Start Date Stop [...] Not Available Not Available Not Available Nasal Rialto Bottle active Not Available Not Available Not [...] Available No t Available [employer] Missy 3 [place] USE DIRECTED 02/11 completed Not Available Not Available Not Available Vitals Date Recorded Body height Body temperature Body mass index (BMI) Body weight Provider Name and Address Organization Details Last Updated DateTime 02/11/2023 170.18 cm 98.5 [degF] 25.1 kg/m2 43740.78 g Marguerite Shoemaker RN [facility] [employer] 02/11/2023 11:34:54 Date Recorded Body height Body mass index (BMI) Body weight Body temperature Provider Name and Address Organization Details Last Updated DateTime 06/17/2023 170.18 cm 26.9 kg/m2 11772.89 g 98.4 [degF] Marguerite Shoemaker RN [facility] [employer] 06/17/2023 14:56:07 Social History Question Answer Notes LastModified by Organizat ion Details LastModified Time Tobacco Smoking Status Never Smoker ISAIAH Ribeiro, [facility] [employer] 01/12/2023 12:50:49 What Is Your Level Of [...] 12:50:28 Medical History Condition Response MRSA N ALLERGIES/HAYFEVER N BACK INJECTIONS N LUNG DISEASE/DISORDER N INSOMNIA N HISTORY [...] STROKE/TIA N POLYCYSTIC OVARIES N OBESITY N ANEURYSM N HISTORY WITH COMPLICATIONS WITH ANESTHES IA ? N Do you have Advance directive? N USE OF BLOOD THINNERS N NO SIGNIFICANT PAST MEDICAL HISTORY N DIABETES, TYPE Y VON WILLIBRAND'S DISEASE N PARATHYROID DISEASE N ENT N SEASONAL ALLERGIES N HEARTBURN / REFLUX N POST LAMINECTOMY SYNDROME N HEPATITIS / LIVER DISEASE N SLEEP DISORDER Y ARTERIAL INSUFFICIENCY N HEADACHES/MIGRAINES N SEIZURES/EPILEPSY N CHF N PACEMAKER N DIZZINESS N [...] SNOMED-CT Code Diagnosis ICD10 Code Diagnosis Note [id number] Gaston Calderon MD [facility] [place] [address] [place] [address] 02/11/2023 10:48:37 02/11/2023 12:03:10 Chronic sinusitis 01359684 J32.9 [id number] Gaston Calderon MD [facility] [place] [address] [place] [address] 06/17/2023 14:35:51 06/18/2023 10:52:31 Bilateral chronic serous otitis 187469241 H65.23 Multiple myeloma 3727547 06 C90.00 Chronic sinusitis 469910 00 J32.9 Health Concerns Section Related Observation LastModified by Organization Detai ls LastModified Time None Recorded Concern Status LastModified by Organization Details LastModified Time None Recorded Advance Directives Directive None Recorded Payers Encounter Date Sequence Insurance Name Policy Number Policy Gates Covered Member ID Gates Member ID Guarantor Name 02/11/2023 1 [place] Zachary Melton [id number] Zachary Melton 02/11/2023 2 [place] [id number] Zachary Melton [id number] Zachary Melton 06/17/2023 1 [place] Zachary Melton [id number] Zachary Melton 06/17/2023 1 [employer] (MEDICARE REPLACEMENT PPO) [id number] Zachary Powers Geronimo [id number] Zachary Melton Notes Date Note Type Note [...] this. Gaston Calderon MD [address] [place] [address], [place], [address], [employer] 02/11/2023 11:55:45 06/17/2023 text/html this patient has recently been diagnosed with multiple myeloma. His CT scan in January revealed sinusitis and since then he has been treated with antibiotics. He now reports that he is having temporoparietal pain and was told that he had middle ear fluid Gaston Calderon MD [address], [place], [address], [employer] 06/17/2023 15:22:16
--- OUTSIDE RECORDS SUMMARY | 2024-03-27 07:29 | XMS_ITS ---
Author Organization [facility] Address [address] [place], [place] [id number] Care Team Providers Care Eyelet Cutter Name Role Phone MELA VENTURA Unavailable [phone] Rigo Alvarenga Unavailable Unavailable ALVIN JUNIOR Unavailable [phone] REASON FOR VISIT *General care Encounters Encounter Location Date Provider Diagnosis [facility] [address], [place] [id number] 11/18/2023 ALVIN JUNIOR Plan Of Treatment No Information Progress Notes * ROSETTAHUSSAINDOB:1960 (63 yo M)Acc No.[id number]:11/18/2023 Patient: Onel OCONNORYISAIAHHUSSAIN Provider: Onel JUNIOR :1960 A ge:63 Y S ex:Male Date:11/18/2023 Address:[address] [place], [place] Subjective: * Chief Complaints: * 1 . *General care. * Medical History: Objective: * Vitals: Assessment: Plan: * Treatment: * Billing Information: * Visit Code: * Procedure Codes: * Electronic signature of MALIKA JUNIOR DPM on 03/27/2024 at 07:28 AM STATE FEDERAL RELATIONS DEPUTY DIRECTOR Sign off status: Pending * Provider: Onel JUNIOR Date: 1 Generated for Bibiana felder/Dulce/Davinaitting on: 0 03/27/2024 07:28 AM STATE FEDERAL RELATIONS DEPUTY DIRECTOR
--- OUTSIDE RECORDS SUMMARY | 2024-03-27 07:29 | XMS_ITS ---
Author Organization [facility] Address [address] [place] [address] Care Team Providers Care Hair Mixer Name Role Phone Rigo Alvarenga MD Primary Care Provider [phone] Rand Collins RN Unavailable [phone] Felipe Foss MD Unavailable [phone] Active Problems Patient Care Coordination No te Formatting of this note migh t be different from the original. Per Dr. Limon, GEORGE goal 2-4 d/t receiving treatment for MM on Envarsus 1mg Discharge Preferences: Lab: [facility]. Hosp. , [phone] standing orders q Monthly, FK,UPE, q3 HgbA1C Exp. 03/30/24 Home Health: [facility] /[phone] Local Pharmacy: [facility] in [place] [facility]: [facility] Problem Noted Date Diagnosed [...] cardiology follow up. Discussed plan with attending help desk agent. HEATHER on CPAP 09/25/2022 Assessment & Plan [...] further with Dr. Yu. Will proceed with [facility] to better assess volume status and [...] (04/30/2022): Added automatically from request for surgery [id number] Encounter for preadmission testing 04/24/2022 LAYO (acute [...] gluconate, insulin, and kayaxelate -upon arrival to [facility], K 6.0, WBK 5.6 no [...] Assessment & Plan (09/21/2022 10:01 AM CDT): -correction use of immunosuppressants and steroids complicates diabetes management. Assessment & Plan (05/04/2022 8:32 AM CDT): -correction use of immunosuppressants and steroids complicates diabetes [...] function 05/31/2019 ESRD (end stage renal disease) ([facility]) 020 Overview (05/30/2019): Added automatically from request for surgery [id number] Pruritus 08/10/2018 ESRD (end stage renal disease) [...] 11/06/2009 Systemic lupus erythematosus (SLE) in adult ([facility]) 11/06/2009 Current Oncology Plans Bortezomib Every Other Week 28 Day Cycles - Myeloma* Plan Start Date:08/31/2023 Plan Provider:Felipe Foss MD Linked Problems Multiple myeloma not having achieved remission ([facility]) ([facility]) Treatment Medications Current Day (Day 1 , Cycle 4 - Planned for 12/01/2023) Next Day (Day 15, Cycle 4 - Planned for 12/15/2023) bortezomib (VELCADE) bortezomib (VELCADE ) subcutaneous syringe 2.625 mg bortezomib (VELCADE) subcutaneous syringe 2.625 mg Zoledronic Acid (ZOMETA) Infusion* Plan Start Date:02/24/2023 Plan Provider:Felipe Foss MD Linked Problems Multiple myeloma not having achieved remission ([facility]) ([facility]) Treatment Medications No medications scheduled. Past Plans Oncology Chemotherapy Treatment Plan Name Start Date Discontinue Date Treatment Medications Discontinue Reason Plan Provider Cycles Bortezomib / Lenalidomide / Dexamethasone PO 21 Day Cycles - Myeloma 3 08/31/2023 bortezomib (VELCADE) Therapy Complete Felipe Foss MD 4 of 4 cycles started Radiation Treatments * No radiation treatments are documented for this patient in Epic. Treatments may have been administered in another [...] 07/17/2022 08/26/2023 ESRD (end stage renal disease) ([facility]) 11/18/2017 05/10/2018 Overview (11/18/2017): Added automatically from request for surgery [id number] Peritoneal dialysis catheter tunnel infection 10/28/19 18 09/12/2018 Overview (10/27/2017): Added automatically from request for surgery [id number] End-stage renal disease on h emodialysis ([facility]) 10/07/2017 05/10/2018 Overview (10/07/2017): Added automatically from request for surgery [id number] Stage 4 chronic kidney disease ([facility]) 01/16/2015 05/10/2018 Encounter for monitoring tacrolimus therapy 11/17/2010 09/12/2018
--- OUTSIDE RECORDS SUMMARY | 2024-03-27 07:30 | XMS_ITS ---
Author Organization [facility] Address [address] [place] [address] Care Team Providers Care Systems Trainer Name Role Phone Rigo Alvarenga MD Primary Care Provider [phone] Rand Collins RN Unavailable [phone] Felipe Foss MD Unavailable [phone] Transplant Episode Kidney Recipient [facility] ([place], [place]) - [facility] Organ Received: Left Kidney Transplanted on 05/30/2019 Marked as Active Follow-up on 05/30/2019 Reason: Transplanted at [facility] Kidney CoordinatorRand Collins RN Fax: N/A Email: N/A [place] Organ Diagnosis Organ Primary Contributory Kidney Focal [...] Fax Email Rand Collins RN Kidney Coordinator [phone] N/A N/A Miguel Hernandez MD Referring Physician [phone] N/A Darshana Dean RN Secondary Coordinator [phone] N/A N/A Rand Collins RN Hearing Aid Fitter [phone] N/A N/A Shruthi Soto Primary Marine Steamfitter N/A N/A N/A Chapo Nelson Secondary Marine Steamfitter N/A N/A N/A Cecelia Wilcox Construction Representative [phone] N/A N/A Events Post-Transplant Pre-Transplant Admitted: 05/30/2019 Referred: 04/02/2015 Transplanted: 05/30/2019 Evaluation began: 6 Discharged: 06/02/2019 Center waitlisted: 6 Dialysis History Dialysis History Start End Type Comments Center 12/18/2015 05/30/2019 Home Hemodialysis [facility] Dialysis Center Information Center Phone Fax Address [facility] [phone] [address] [facility] [address]
--- OUTSIDE RECORDS SUMMARY | 2024-03-27 07:30 | XMS_ITS | Encounter Summary ---
Author Organization [facility] Address [address] [facility] [place] [address] Phone Care Team Providers Care Music Librarian Name Role Phone Rigo Alvarenga MD Primary Care Provider [phone] Rand Collins RN Unavailable [phone] Felipe Foss MD Unavailable [phone] Encounter Details Date Type Department Care Team [...] often do you attend chur ch or confucianism services? 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
--- OUTSIDE RECORDS SUMMARY | 2024-03-27 07:30 | XMS_ITS | Encounter Summary ---
Author Organization [facility] Address [address] [place] [address] Phone Care Team Providers Care Superintendent Production Name Role Phone Rigo Alvarenga MD Primary Care Provider [phone] Rand Collins RN Unavailable [phone] Felipe Foss MD Unavailable [phone] Encounter Details Date Type Department Care Team [...] often do you attend chur ch or oriental orthodox services? More than 4 times per year [...] place to sleep or slept in a skilled nursing (including now)? No 09/29/2022 Personal Safety Answer Date Recorded Have you ever been in or are you currently in a harmful physical or emotional relationship or is someone making you feel afraid or unsafe? Denies 05/03/2023 Sex and Gender Information Value Date Recorded Sex Assigned at Not on file Legal Sex Male 12:49 PM LICENSED SURVEYOR Gender Identity Not on file Sexual Orientation [...] on filedocumented in this encounter Care Teams Superintendent Production Relationship Specialty Start Date End Date Rigo Alvarenga MD PCP - General 03/31/17 Rand Collins, FLORES [address] [facility] [address] [place] [address] Programmer Operator Numerical Control 05/31/19 Felipe Foss MD [address] [place] [address] Medical Oncologist/Campaign Management Senior Manager Hematology and Oncology 01/04/23 documented as of this encounter
--- OUTSIDE RECORDS SUMMARY | 2024-03-27 07:30 | XMS_ITS ---
Author Organization [facility] Address [address] [place], [place] [id number] Care Team Providers Care International Manager Name Role Phone MELA VENTURA Unavailable [phone] Rigo Alvarenga Unavailable Unavailable ALVIN JUNIOR Unavailable [phone] Allergies Allergen (clinical drug ingredient) Drug/Non Drug Allergy documented on EMR Reaction Allergy Type Onset Date Status codeine Codeine Unknown Drug Allergy Active duloxetine Duloxetine Unknown Drug Allergy Activ e lisinopril Lisinopril Unknown Drug Allergy Activ e prednisone Prednisone Unknown Drug Allergy Activ e REASON FOR VISIT *Possible ingrown nail Medications Medication SIG (Take, Route, Frequency, Duration) Notes Start Date End Date Status Allopurinol Active Tart Mcadams Active Vitamin B1 Active Vitamin B12 Active Vitamin B6 Active Atorvastatin Calcium Active Aspirin 81 Active Revlimid Active Fexofenadine HCl Act antwon Clotrimazole-Betamethasone 1-0.05 % 1 application Externally Twice a day 09/09/2023 Active Envarsus XR Active Gabapentin Active Montelukast Sodium A ctive Bumetanide Active Losartan Potassium A ctive Pantoprazole Sodium Active dexAMETHasone Active Stool Softener Activ e Jardiance Active NovoLOG FlexPen Acti ve Vitamin D3 Active Mounjaro Active Basaglar KwikPen Act antwon Vital Signs Height 67.00 in 09/09/2023 Height-cm 170.18 cm 09/09/2023 Encounters Encounter Location Date Provider Diagnosis [place] [address] [place], [place] [id number] 09/09/2023 ALVIN JUNIOR Unspecified atherosclerosis of [place] arteries of extremities, bilateral legs I70.203 ; Tinea pedis B35.3 ; Tinea unguium B35.1 ; Pain in right toe(s) M79.674 and Pain in left toe(s) M79.675 Assessments Encounter Date Diagnosis (ICD Code) Assessment Notes Treatment Notes Treatment Clinical Notes Section Notes 09/09/2023 Unspecified atherosclerosis of rincon arteries of extremities, bilateral legs (ICD-10 - I70.203) Patient educated on risks and aggravating factors of PVD, including conservative treatment options such as a diet and exercise regimen to aid in slowing progression of vascular disease 09/09/2023 Tinea pedis (ICD-10 - B35.3) The [...] regarding both OTC and prescription treatments. 09/09/2023 Tinea unguium (ICD-10 - B35.1) Aseptic [...] toe(s) (ICD-10 - M79.675) Plan Of Treatment Medication Medication Name Sig Start Date Stop Date Notes Clotrimazole-Betamethasone 1-0.05 % 1 application Externally Twice a day 09/09/2023 Treatment Notes Assessment Notes Unspecified atherosclerosis of rincon arteries of extremities, bilateral legs Patient educated [...] educated regarding both OTC and prescription treatments. Tinea unguium Aseptic debridement of elongated thickened nails x [...] educated regarding both OTC and prescription treatments. Next Appt Details Follow Up: 3 Months, Reason: Progress Notes * ISAIAH SARGENTMARCIADOB:1960 (63 yo M)Acc No.[id number]:09/09/2023 Progress Notes Patient: HUSSAIN EDWARDS Provider: Onel JUNIOR :1960 A ge:63 Y S ex:Male Date:09/09/2023 Address:[address] [place], [place] [address] Subjective: * Chief Complaints: * 1 . *Possible ingrown nail. * HPI: H PI: New Complaint Gio rocha presents for a new patient consultation. Gio atyvette complains of an issue to rash all over foot bilaterally. Patient has been treated for Athletes foot in the past. Duration of problem is several months. Gio rocha denies any injury. Gio rocha also complains of an issue to possible ingrown nail on the left second toenail. Nail is painful to touch. Duration of problem is ongoing for several years. Patient is usually able to fix the problem on his own. P atient denies any injury. M A:SS. * ROS: G eneral / Constitutional: Patient denies w eakness. R espiratory: Patient denies c hronic cough, shortness of breath, sputum production. C ardiovascular: Patient denies c hest pain, history of [place], irregular heartbeat. M usculoskeletal: Patient denies a rthritis, joint stiffness. ? P eripheral Vascular: Patient denies b lanching of skin, cold extremities, decreased sensation in extremities. S kin: Patient complains of f ungal nails, nail changes. ? N eurologic: Patient denies d izziness, gait abnormality, headache. * Medical History: A mj reflux, Neuropathy, Skin cancer, Angina, Radiation therapy, Epilepsy, High blood pressure. * Family History: F ather: PRN - Father: . M other: PRN - Mother: :: Stroke,,known absent , :: Diabetes,,known absent , :: Hypertension,,known absent . S ister: SIB - Sister: , :: Diabetes,,known absent , :: Cancer,,known absent , :: Hypertension,,known absent . * Social History: M igrated Social History: M igrated Social History: Smoking Status : Never smoked , History of tobacco use :. N o History of Tobacco or Alcohol/Beer. * Medications: T aking Mounjaro , Taking [...] Taking Vitamin B12 , Taking Vitamin D3 * Allergies: D uloxetine, Prednisone, Lisinopril, Codeine. Objective: * Vitals: H t: 67.00 in, Ht-cm: 170.18 cm. * Examination: P hysical Examination: V ascular: [...] no erythema noted, no ecchymoses, nails are elongated thickened and dystrophic with subungual debris x ten, diffuse plantar xerosis with annular [...] (Primary) 2 . U nspecified atherosclerosis of rincon arteries of extremities, bilateral legs - I70.203 3 . T inea unguium - B35.1 4 . P ain in right toe(s) - M79.674 5 . P ain in left toe(s) - M79.675 Plan: * Treatment: 2. U nspecified atherosclerosis of rincon arteries of extremities, bilateral legs Notes: Patient educated on risks and aggravating factors of PVD, including conservative treatment options such as a diet and exercise regimen to aid in slowing progression of vascular disease ? 3. T inea unguium Notes: Aseptic debridement of elongated thickened nails x [...] educated regarding both OTC and prescription treatments. 4. O thers Start Clotrimazole-Betamethasone Cream, 1-0.05 %, 1 application, Externally, Twice a day, 1, Refills 2. * Follow Up: 3 Months * Billing Information: * Visit Code: 48850 Office Visit, New Pt., Level 3. * Procedure Codes: * Sign off status: Completed true * Provider: Onel JUNIOR Date: 0 09/09/2023 Generated for Bibiana Moralez on: 0 03/27/2024 07:29 AM ELECTRICAL ASSEMBLY TECHNICIAN History and Physical Notes * HPI (History of Present Illness) Category Sub-Category Detail Notes Category Not es HPI New Complaint Patient presents for a new patient consultation.Patient complains of an issue to rash all over foot bilaterally. Patient has been treated for Athletes foot in the past. Duration of problem is several months. Patient denies any injury.Patient also complains of an issue to possible ingrown nail on the left second toenail. Nail is painful to touch. Duration of problem is ongoing for several years. Patient is usually able to fix the problem on his own. Patient denies any injury. MA:SS Examination Category Sub-Category Detail Notes Category Not [...] no erythema noted, no ecchymoses, nails are elongated thickened and dystrophic with subungual debris x ten, diffuse plantar xerosis with annular [...]
[2024-03-27 07:58] LABS: Basophils Absolute Auto 0.01 K/mm3 (0.00-0.10); Basophils Percent Auto 0.2 % (0.0-1.0); Eosinophils Absolute Auto 0.06 K/mm3 (0.02-0.50); Hematocrit 48.2 % (40.0-54.0); Hemoglobin 16.2 g/dL (14.0-18.0); Immature Granulocyte Absolute 0.03 K/mm3 (0.00-0.00); Immature Granulocyte Percent A 0.5 % (0.0-0.0); Immature Platelet Fraction Pct 1.4 % (1.0-7.0); Lymphocytes Absolute Auto 1.03 K/mm3 (1.10-4.50); Lymphocytes Percent Auto 16.9 % (18.0-42.0); Mean Corpuscular HGB Conc 33.6 g/dL (32-36); Mean Corpuscular Hemoglobin 30.6 pg (27.0-31.0); Mean Corpuscular Volume 90.9 fL (78.0-102.0); Monocytes Percent Auto 8.2 % (2.0-11.0); Neutrophils Absolute Auto 4.47 K/mm3 (1.70-7.20); Neutrophils Percent Auto 73.2 % (50.0-70.0); Platelet Count Result 116 K/mm3 (150-420); White Blood Count 6.1 K/mm3 (4.8-10.8)
[2024-03-27 10:11] LABS: Creatinine Urine 76.25 mg/dL (40-278); Total Protein Urine Random 45.9 mg/dL (0.0-11.9)
[2024-03-27 11:16] LABS: Albumin Level 3.8 g/dL (3.4-5.0); Anion Gap 10 mmol/L (4-12); Blood Urea Nitrogen 34 mg/dL (7-18); Calcium 8.9 mg/dL (8.5-10.1); Carbon Dioxide 27 mmol/L (21-32); Chloride 105 mmol/L (98-108); Estimated Glomerular Filt Rate 47; Glucose 152 mg/dL (70-99); Osmolality Calculated 304 mOsm/kg (285-295); Phosphorus 1.8 mg/dL (2.6-4.7); Potassium 3.1 mmol/L (3.5-5.1); Sodium 142 mmol/L (136-145)
== END 2024-03-27 07:23 | disposition home or self-care (01) ==
LOC: CHSLAB 07:26
PROVIDERS: PCP Internal Medicine
DX: E10.65 Type 1 diabetes mellitus with hyperglycemia (principal); Z94.0 Kidney transplant status
CPT/HCPCS: 36415; 80069; 80197; 82570; 84156; 85025; 85055

== ENCOUNTER 2024-04-06 15:54 | Outpatient (RCR) | payer OTHER, SELFPAY ==
--- NOTE | 2024-04-06 18:02 | OPREHPOC ---
Outpatient Therapy Plan of Care This is a Multidisciplinary Plan of Care that may contain components documented by all disciplines (PT, OT, and ST.) PT Problem 1 PT Problem #1 Knowledge Deficit PT Goal 1 Goal / Goal Update The patient will be independent in a home exercise program. Target Visit 2 PT Problem 2 PT Problem #2 Pain PT Goal 1 Goal / Goal Update The patient will report no greater than 3/10 left hip pain with walking and driving. Target Visit 12 PT Problem 3 PT Problem #3 Impaired Functional Mobility PT Goal 1 Goal / Goal Update The patient will demonstrate 25% or less self perceived disability per the LEFS questionnaire. Target Visit 12 PT Problem 4 PT Problem #4 Impaired Gait PT Goal 1 Goal / Goal Update The patient will demonstrate a non-antalgic gait pattern and ambulate 500 feet to improve community ambulation. Target Visit 12
--- NOTE | 2024-04-06 18:02 | PTOPEVAL1 ---
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 He had x-rays that were negative for fractures. He is noting pain on the outside of the left hip that is worse with sitting or driving for more than 15 mins. He also feels he is walking differently. The right hip also hurts since the fall. He is using Tylenol for headache pain but it helps his hip as well. He was also given a prednisone steroid pack that kept pain minimal. 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 Reported Pain Level Pain Score 4: Self Report Assessment PT Clinical Summary Zachary Melton presents with left hip pain after a fall on 02/28/24. X-rays were negative for fracture . He has difficulty with sitting, driving, and walking. 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 He objectively demonstrates tenderness in the left gluteus medius and posterior to the greater trochanter, decreased left hip AROM, decreased left hip strength, and impaired gait. He will benefit from skilled PT to address these limitations. Plan of Care Interventions Electrical Stimulation,Hot Pack/Cold Pack,Manual Therapy,Neuro Re-education,Patient/Caregiver Education,Therapeutic Activities,Therapeutic Exercise PT Services Indicated Yes Treatment Frequency and 3 times a week for 12 visits Duration These treatments will address the objective and functional deficits as defined above. The patient will be advanced safely and appropriately in order for the patient to progress towards his/her prior level of function. Additional exercises will be introduced and as well as a comprehensive home exercise program upon discharge, if needed, ?to ensure carryover of functional gains achieved in the clinic. This treatment plan has been reviewed and agreement upon by the patient.
--- NOTE | 2024-04-28 16:01 | OPREHPOC ---
Outpatient Therapy Plan of Care This is a Multidisciplinary Plan of Care that may contain components documented by all disciplines (PT, OT, and ST.) PT Problem 1 PT Problem #1 Knowledge Deficit PT Goal 1 Goal / Goal Update The patient will be independent in a home exercise program. Target Visit 2 Progress Met PT Problem 2 PT Problem #2 Pain PT Goal 1 Goal / Goal Update The patient will report no greater than 3/10 left hip pain with walking and driving. Target Visit 12 Progress Met PT Problem 3 PT Problem #3 Impaired Functional Mobility PT Goal 1 Goal / Goal Update The patient will demonstrate 25% or less self perceived disability per the LEFS questionnaire. Target Visit 12 Progress Not Met PT Problem 4 PT Problem #4 Impaired Gait PT Goal 1 Goal / Goal Update The patient will demonstrate a non-antalgic gait pattern and ambulate 500 feet to improve community ambulation. Target Visit 12 Progress Not Met
--- NOTE | 2024-04-28 16:01 | PTOPPROGNS ---
Assessment and note entered by JT File, PT Evaluation Information Assessment Status Progress ICD-10 Condition Codes (PT) Pain in left hip M25.552 Onset 02/28/24 Subjective Information patient reports the L buttock is a bit more sore and painful today as he was just sitting in a hard chair at the doctors office. he reports it is bothering him more while walking today. Assessment PT Clinical Summary mr. miles presents to skilled PT for his 10th skilled therapy visit today. he displays antalgic gait mechanics and pain in the L buttock still. his pain is slightly increased today after sitting in a hard chair at the doctors office. since starting skilled PT, he has displayed improvements in LE strength, and progress towards his LEFS goals. continued skilled PT is indicated to improve his remaining objective/functional deficits and achieve all goals to return to his prior level functional and work activity performance. Plan of Care Interventions Electrical Stimulation,Hot Pack/Cold Pack,Manual Therapy,Neuro Re-education,Patient/Caregiver Education,Therapeutic Activities,Therapeutic Exercise PT Services Indicated Yes Treatment Frequency and continue per initial POC Duration These treatments will address the objective and functional deficits as defined above. The patient will be advanced safely and appropriately in order for the patient to progress towards his/her prior level of function. Additional exercises will be introduced and as well as a comprehensive home exercise program upon discharge, if needed, ?to ensure carryover of functional gains achieved in the clinic. This treatment plan has been reviewed and agreement upon by the patient.
--- NOTE | 2024-05-05 14:26 | OPREHPOC ---
Outpatient Therapy Plan of Care This is a Multidisciplinary Plan of Care that may contain components documented by all disciplines (PT, OT, and ST.) PT Problem 1 PT Problem #1 Knowledge Deficit PT Goal 1 Goal / Goal Update The patient will be independent in a home exercise program. Target Visit 2 Progress Met PT Problem 2 PT Problem #2 Pain PT Goal 1 Goal / Goal Update The patient will report no greater than 3/10 left hip pain with walking and driving. Target Visit 12 Progress Met PT Problem 3 PT Problem #3 Impaired Functional Mobility PT Goal 1 Goal / Goal Update The patient will demonstrate 25% or less self perceived disability per the LEFS questionnaire. Target Visit 12 Progress Met PT Problem 4 PT Problem #4 Impaired Gait PT Goal 1 Goal / Goal Update The patient will demonstrate a non-antalgic gait pattern and ambulate 500 feet to improve community ambulation. Target Visit 12 Progress Met
--- NOTE | 2024-05-05 14:26 | PTOPDC ---
Assessment and note entered by JT File, PT Evaluation Information Assessment Status Discharge ICD-10 Condition Codes (PT) Pain in left hip M25.552 Onset 02/28/24 Subjective Information patient reports he feels Good today. he reports his pain is low, and he is ready to be done with PT. he reports he has continued to work while in PT. Reported Pain Level Pain Score 1: Self Report Assessment PT Clinical Summary mr. miles presents to skilled PT services for his 12th skilled therapy visit. he has met all goals for skilled PT today. he is ready to DC therapy, and continue with HEP independent at home. he should return to full prior level work duties. Plan of Care PT Services Indicated Yes
== END 2024-05-05 14:51 | disposition home or self-care (01) ==
LOC: CHSPT 15:54
PROVIDERS: PCP Nurse Practitioner Family; Visit Provider Nurse Practitioner Family
DX: M25.552 Pain in left hip (principal)
CPT/HCPCS: 97110; 97112; 97140; 97150; 97161; 97530

== ENCOUNTER 2024-04-24 09:41 | Outpatient (CLI) | payer MEDICARE, SELFPAY ==
[2024-04-24 10:05] LABS: Basophils Absolute Auto 0.01 K/mm3 (0.00-0.10); Basophils Percent Auto 0.1 % (0.0-1.0); Eosinophils Absolute Auto 0.06 K/mm3 (0.02-0.50); Eosinophils Percent Auto 0.8 % (1.0-6.0); Hematocrit 51.2 % (40.0-54.0); Hemoglobin 17.3 g/dL (14.0-18.0); Immature Granulocyte Absolute 0.03 K/mm3 (0.00-0.00); Immature Granulocyte Percent A 0.4 % (0.0-0.0); Lymphocytes Absolute Auto 1.07 K/mm3 (1.10-4.50); Lymphocytes Percent Auto 14.1 % (18.0-42.0); Mean Corpuscular HGB Conc 33.8 g/dL (32-36); Mean Corpuscular Hemoglobin 31.2 pg (27.0-31.0); Mean Corpuscular Volume 92.3 fL (78.0-102.0); Mean Platelet Volume 9.7 fl (8.7-11.0); Monocytes Absolute Auto 0.58 K/mm3 (0.10-0.90); Monocytes Percent Auto 7.7 % (2.0-11.0); Neutrophils Absolute Auto 5.83 K/mm3 (1.70-7.20); Neutrophils Percent Auto 76.9 % (50.0-70.0); Platelet Count Result 156 K/mm3 (150-420); Red Blood Count 5.55 M/mm3 (4.70-6.10); Red Cell Distribution Width 12.9 % (11.6-14.4); White Blood Count 7.6 K/mm3 (4.8-10.8)
[2024-04-24 10:27] LABS: Creatinine Urine 88.04 mg/dL (40-278); Total Protein Urine Random 90.5 mg/dL (0.0-11.9); Ur Ttl Prot Creatinine Ratio 1.03 mg/mg (0-0.20)
[2024-04-24 11:04] LABS: Albumin Level 4.4 g/dL (3.4-5.0); Anion Gap 9 mmol/L (4-12); Blood Urea Nitrogen 25 mg/dL (7-18); Calcium 10.1 mg/dL (8.5-10.1); Carbon Dioxide 30 mmol/L (21-32); Chloride 104 mmol/L (98-108); Estimated Glomerular Filt Rate 51; Glucose 109 mg/dL (70-99); Osmolality Calculated 301 mOsm/kg (285-295); Phosphorus 2.3 mg/dL (2.6-4.7); Potassium 3.7 mmol/L (3.5-5.1); Sodium 143 mmol/L (136-145)
--- OUTSIDE RECORDS SUMMARY | 2024-04-24 11:10 | XMS_ITS | Encounter Summary ---
Author Organization [facility] Address [address] [place] [address] Phone Care Team Providers Care Pathology Manager Name Role Phone Rigo Alvarenga MD Primary Care Provider [phone] Malgorzata Edwards RN Unavailable [phone] Marguerite Carson Unavailable Unavail able Tamy Arcos RN Unavailable [phone] Chase Durbin MD Unavailable [phone] Pavithra Tavarez RN Unavailable Rand Collins RN Unavailable [phone] Felipe Foss MD Unavailable [phone] Encounter Details Date Type Department Care Team (Latest Contact Info) Description 04/01/2017 Orders Only [facility] CONVERSION Scanning, Provider Social History Tobacco Use Types Packs/Day Years Used Date Smoking Tobacco: Never Sex and Gender Information Value Date Recorded Sex Assigned at Not on file Legal Sex 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 Gender Identity Not on file Sexual Orientation Not on file documented as of this encounter Plan of Treatment Not on file documented as of this encounter Procedures Procedure Name Priority Date/Time Associated Diagnosis Comments VASCULAR LABORATORY REPORT 04/01/2017 11:02 PM HEALTH CARE SANITARY TECHNICIAN documented in this encounter Results * VASCULAR LABORATORY REPORT (04/01/2017 11:02 PM HEALTH CARE SANITARY TECHNICIAN) Anatomical Region Laterality Modality Ultrasound us Provider [...] documented as of this encounter Care Teams Pathology Manager Relationship Specialty Start Date End Date Rigo Alvarenga MD PCP - General 03/31/17 Malgorzata Edwards RN [address] [address] Electric Motor Repairing Supervisor 07/13/17 8 Marguerite Carson Electric Motor Repairing Supervisor 07/23/17 08/10/17 Tamy Arcos RN [address] [address] Electric Motor Repairing Supervisor 08/11/17 Chase Durbin MD [address] [facility] [address] [place] [address] Office Workforce Planner Nephrology 03/23/19 11/23/19 Pavithra Tavarez RN [address] [address] Electric Motor Repairing Supervisor 03/30/19 0 Rand Collins RN [address] [address] Electric Motor Repairing Supervisor 05/31/19 Felipe Foss MD [address] [place] [address] Medical Oncologist/Glazier Stained Glass Hematology and Oncology 01/04/23 documented as of this encounter
--- OUTSIDE RECORDS SUMMARY | 2024-04-24 11:10 | XMS_ITS | Clinical Summary ---
Author Organization [facility] Address [address] [place] [address] Care Team Providers Care Programming Development Project Manager Name Role Phone Rigo Alvarenga MD [...] complete this topic Insurance MEDICARE MEDICARE [place] [address] [place] [address] Care Teams Programming Development Project Manager Relationship Specialty Start Date End Date Rigo Alvarenga MD [address] [place] [address] PCP - General INTERNAL MEDICINE 06/19/19
--- OUTSIDE RECORDS SUMMARY | 2024-04-24 11:10 | XMS_ITS ---
Author Organization [facility] Address [address] [place], [place] [address] Care Team Providers Care Die Press Operator Name Role Phone MELA VENTURA Unavailable [phone] Rigo Alvarenga Unavailable Unavailable ALVIN JUNIOR Unavailable [phone] Allergies Allergen (clinical drug ingredient) Drug/Non Drug [...] Active Encounters Encounter Location Date Provider Diagnosis [address] [id number] 10/07/2023 LAVIN DAVYDOV Unspecified atherosclerosis of the [place] arteries of extremities, bilateral legs I70.203 and Tinea pedis B35.3 Assessments Encounter Date Diagnosis (ICD Code) Assessment Notes Treatment Notes Treatment Clinical Notes Section Notes 10/07/2023 Unspecified atherosclerosis of the [place] arteries of extremities, bilateral legs (ICD-10 - [...] Treatment Notes Assessment Notes Unspecified atherosclerosis of the [place] arteries of extremities, bilateral legs Patient educated [...] Notes * HUSSAIN SARGENTDOB:1960 (63 yo M)Acc No.[id number]:10/07/2023 Patient: Onel HUSSAIN [place] Provider: Onel JUNIOR :1960 A ge:63 Y S ex:Male Date:10/07/2023 [facility] Subjective: * Chief Complaints: * 1 . [...] Patient denies c hest pain, history of MD, irregular heartbeat. M usculoskeletal: Patient denies a [...] (Primary) 2 . U nspecified atherosclerosis of the [place] arteries of extremities, bilateral legs - I70.203 Plan: * Treatment: 2. U nspecified atherosclerosis of the [place] arteries of extremities, bilateral legs Notes: Patient educated on risks and aggravating factors of PVD, including conservative treatment options such as a diet and exercise regimen to aid in slowing progression of vascular disease ? * Follow Up: 3 Months * Billing Information: * Visit Code: 91559 Office Visit, Est Pt., Level 3. * Procedure Codes: * Sign off status: Completed true * Provider: Onel JUNIOR Date: 0 10/07/2023 Generated for Bibiana Moralez on: 0 04/24/2024 11:10 AM CDT History and Physical Notes * HPI (History [...]
--- OUTSIDE RECORDS SUMMARY | 2024-04-24 11:10 | XMS_ITS | Encounter Summary ---
Author Organization [facility] Address [address] [place] [address] Phone Care Team Providers Care Chemical Processing Supervisor Name Role Phone Rigo Alvarenga MD Primary Care Provider Ag Malcolm MD Primary Care Provider [phone] Rigo Alvarenga MD Primary Care Provider Ag Malcolm MD Primary Care Provider Rigo Alvarenga MD Primary Care Provider Ag Malcolm MD Primary Care Provider Ag Malcolm MD Primary Care Provider Rigo Alvarenga MD Primary Care Provider Malgorzata Edwards RN Unavailable [phone] Marguerite Carson Unavailable Unavail able Tamy Arcos RN Unavailable Chase Durbin MD Unavailable Pavithra Tavarez RN Unavailable Rand Collins RN Unavailable [phone] Felipe Foss MD Unavailable [phone] Encounter Details Date Type Department Care Team (Latest Contact Info) Description 12/04/2016 Orders Only [facility] CONVERSION Scanning, Provider Social History Tobacco Use Types Packs/Day Years Used Date Smoking Tobacco: Never Sex and Gender Information Value Date Recorded Sex Assigned at Not on file 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 Gender Identity Not on file Sexual Orientation [...] documented as of this encounter Care Teams Chemical Processing Supervisor Relationship Specialty Start Date End Date Rigo Alvarenga MD PCP - General 12/02/16 12/15/16 Ag Malcolm MD [address] [place] [address] PCP - General 12/16/16 12/18/16 Rigo Alvarenga MD PCP - General 12/19/16 02/25/17 Ag Malcolm MD [address] [place] [address] PCP - General 02/26/17 03/04/17 Rigo Alvarenga MD PCP - General 03/05/17 03/24/17 Ag Malcolm MD [address] [place] [address] PCP - General 03/30/17 03/30/17 Ag Malcolm MD [address] [place] [address] PCP - General 03/25/17 03/29/17 Rigo Alvarenga MD PCP - General 03/31/17 Malgorzata Edwards, RN [address] [address] Mechanical Systems Designer 07/13/17 Marguerite Moise Mechanical Systems Designer 07/23/17 08/10/17 Tamy Arcos RN [address] [address] Mechanical Systems Designer 08/11/17 Chase Durbin MD [address] [facility] [address] [place] [address] Junior Net Developer Nephrology 03/23/19 11/23/19 Pavithra Tavarez, FLORES [address] [facility] [address] [place] [address] Mechanical Systems Designer 03/30/19 0 Rand Collins RN [address] [facility] [address] [place] [address] Mechanical Systems Designer 05/31/19 Felipe Foss MD [address] [place] [address] Medical Oncologist/Deposition Reporter Hematology and Oncology 01/04/23 documented as of this encounter
--- OUTSIDE RECORDS SUMMARY | 2024-04-24 11:11 | XMS_ITS ---
Author Organization [facility] Address [address] [place] [address] Care Team Providers Care Hydraulic Repairer Name Role Phone Rigo Alvarenga MD Primary Care Provider [phone] Rand Collins RN Unavailable [phone] Felipe Foss MD Unavailable [phone] Dialysis Access Sites Type Status Location Placement Date Removal Da te AV graft Active Left Upper Arm - Anterior 11/01/2017 Peritoneal Dialysis Catheter Inactive 12/17/2015 12/03/2017 Procedures Procedure Name Priority Date/Time Associated Diagnosis Comments CBC WITH AUTO DIFFERENTIAL Routine 03/27/2024 7:51 AM HEAT TREATER APPRENTICE PROTEIN / CREATININE RATIO, URINE, RANDOM Routine 03/27/2024 7:51 AM HEAT TREATER APPRENTICE RENAL FUNCTION PANEL Routine 03/27/2024 TACROLIMUS LEVEL, TROUGH Routine 03/27/2024 ALBUMIN CREATININE RATIO, URINE Routine 02/25/2024 HEMOGLOBIN A1C Routine 02/25/2024 HEPATIC FUNCTION PANEL Routine 02/25/2024 LIPID PANEL Routine 02/25/2024 RENAL FUNCTION PANEL Routine 02/25/2024 TACROLIMUS LEVEL, TROUGH Routine 02/25/2024 CBC WITH AUTO DIFFERENTIAL Routine 02/25/2024 TACROLIMUS LEVEL, TROUGH Routine 01/25/2024 CBC WITH AUTO DIFFERENTIAL Routine 01/25/2024 RENAL FUNCTION PANEL Routine 01/25/2024 PROTEIN / CREATININE RATIO, URINE, RANDOM Routine 01/25/2024 THYROID FUNCTION CASCADE Routine 10/12/2022 10:23 AM CDT Neuropathy PSA SCREEN STAT 09/24/2022 4:48 PM CDT [...] meter kit Use as directed. 1 kit 2 Active blood-glucose meter (OneTouch Verio Meter) miscIndications :Type 2 diabetes mellitus with other specified complication, unspecified whether kiln maintenance insulin use (HCC) Use to check blood sugar 4 times per day 1 each 2 Active cyanocobalamin, vitamin B-12, (VITAMIN B-12 ORAL)Indication s:Prevention of Vitamin B12 Deficiency Take 1,000 mcg by mouth every morning Active atorvastatin (LIPITOR) 20 mg tablet TAKE 1 TABLET BY MOUTH EVERY DAY AT NIGHT 90 tablet 3 3 Active flash glucose scanning reader miscIndications :Type 2 diabetes mellitus with other specified complication, unspecified whether senior living insulin use (HCC) Use to read missy 3 sensor 1 each 3 Active cholecalciferol (VITAMIN D-3) 2000 unit tabletIndicatio ns:Prevention of Vitamin D Deficiency Take 0.5 tablets (1,000 Units total) by mouth every morning Active FreeStyle Missy 3 Fischer misc as directed Sugars have been way off with sensor so is also sticking himself (using blood glucose meter) [address] (PROTONIX) 40 mg EC tablet Take 1 tablet (40 mg total) by mouth every morning 3 Active acetaminophen (TYLENOL) 500 mg tablet Take 1 tablet (500 mg total) by mouth every 6 (six) hours 90 tablet 4 Active aspirin 81 mg enteric coated tabletIndicatio ns:Kidney replaced by transplant TAKE 1 TABLET BY MOUTH EVERY DAY 90 tablet 3 4 Active glucagon (Gvoke HypoPen 2-Pack) 1 mg/0.2 mL auto-injectorIn dications:Type 2 diabetes mellitus with other specified complication, unspecified whether senior living insulin use (HCC) Inject 1 mg under the skin as needed (as needed for severe hypoglycemia) 0.4 mL 6 4 Active OneTouch Verio test strips stripIndication s:Type 2 diabetes mellitus with other specified complication, unspecified whether kiln maintenance insulin use (HCC) CHECK BLOOD SUGAR 3 TIMES A DAY 100 strip 11 4 Active allopurinoL (ZYLOPRIM) 100 mg tablet Take 1 tablet (100 mg total) by mouth daily 30 tablet 4 Active pyridoxine (VITAMIN B-6) 100 mg tablet Take 1 tablet (100 mg total) by mouth daily Active lancets (OneTouch Delica Plus Lancet) 30 gauge miscIndications :Type 2 diabetes mellitus with other specified complication, unspecified whether senior living insulin use (HCC) USE TO CHECK BLOOD SUGAR 3 TIMES PER DAY 100 each 11 4 Active gabapentin (NEURONTIN) 300 mg capsuleIndicati ons:Neuropathic Pain Take 1 capsule (300 mg total) by mouth 2 (two) times a day 60 capsule 11 4 Active carvediloL (COREG) 3.125 mg tablet Take 1 tablet (3.125 mg total) by mouth 2 (two) times a day with meals 60 tablet 11 4 12/20/19 25 Active FreeStyle Missy 3 Sensor deviceIndicatio ns:Type 2 diabetes mellitus with other specified complication, unspecified whether senior living insulin use (HCC) Use to check blood sugar before meals and at bed time and as needed 2 each 11 4 Active predniSONE (DELTASONE) 5 mg tablet TAKE 1 TABLET (5 MG) BY MOUTH DAILY DX CODE Z94.0 90 tablet 3 4 Active losartan (COZAAR) 50 mg tablet Take 2 tablets (100 mg total) by mouth daily 90 tablet 3 4 Active tacrolimus XR (ENVARSUS XR) 0.75 mg tablet extended release 24 hrIndications:P revention of Kidney Transplant Rejection Take 2 tablets (1.5 mg total) by mouth daily 180 tablet 3 4 Active tamsulosin (FLOMAX) 0.4 mg extended release capsuleIndicati ons:Kidney replaced by transplant TAKE 1 CAPSULE BY MOUTH TWICE A DAY 180 capsule 1 4 Active Jardiance 10 mg tabletIndicatio ns:Type 2 diabetes mellitus with other specified complication, unspecified whether senior living insulin use (HCC) TAKE 1 TABLET BY MOUTH EVERY DAY 90 tablet 3 4 Active tirzepatide (Mounjaro) 10 mg/0.5 mL pen injector injectionIndica tions:Type 2 diabetes mellitus with other specified complication, unspecified whether senior living insulin use (HCC) Inject 0.5 mL (10 mg total) under the skin every 7 days 2 mL 11 5 Active amLODIPine (NORVASC) 5 mg tablet Take 1 tablet (5 mg total) by mouth daily 30 tablet 11 5 04/05/19 26 Active bumetanide (BUMEX) 1 mg tablet Take 0.5 tablets (0.5 mg total) by mouth daily 45 tablet 2 5 Active sodium phosphate - potassium phosphate (K-PHOS NEUTRAL) 250 mg tablet Take 1 tablet (250 mg total) by mouth 2 (two) times a day before breakfast and lunch 180 tablet 2 5 Active bumetanide (BUMEX) 1 mg tablet Take 1 tablet (1 mg total) by mouth 2 (two) times a day 180 tablet 3 4 04/05/19 25 Discontinu ed(Reorder ) Active Problems Patient Care Coordination No te Formatting of this note migh t be different from the original. Per Dr. Limon, FK goal 2-4 d/t receiving treatment for MM on Envarsus 1mg Discharge Preferences: Lab: [facility] , [phone] standing orders q Monthly, FK,UPE, q3 HgbA1C Exp. 03/28/25 Home Health: [facility] /[phone] Local Pharmacy: [facility] [place] [facility]: [facility] Problem Noted Date Diagnosed Date Hypokalemia 04/05/2024 Hypophosphatemia 04/05/2024 Peripheral polyneuropathy 10/21/2023 Weakness 03/17/2023 NSTEMI (non-ST elevated myocardial infarction) 1 Multiple myeloma in remission 01/06/2023 Infiltrative cardiomyopathy 10/30/2022 Assessment & Plan [...] cardiology follow up. Discussed plan with attending talent acquisition manager. HEATHER on CPAP 09/25/2022 Assessment & Plan [...] further with Dr. Yu. Will proceed with [facility] to better assess volume status and pulmonary [...] (04/30/2022): Added automatically from request for surgery [id number] Encounter for preadmission testing 04/24/2022 LAYO (acute [...] gluconate, insulin, and kayaxelate -upon arrival to [facility] ED, K 6.0, WBK 5.6 no additional therapies given -Repeat K and WBK on arrival, manage as appropriate -likely transfer to floor later this morning -renal transplant consult in AM -hold bactrim for time being as could be contributing to hyperkalemia, resume pending transplant nephrology recs ([facility] medication) BPH (benign prostatic hyperplasia) 06/20/2019 Assessment & Plan (06/20/2019 4:45 AM CDT): Continue home flomax Kidney transplant recipient 05/31/2019 Assessment & Plan (09/21/2022 10:01 AM CDT): -upsetting machine operator use of immunosuppressants and steroids complicates diabetes management. Assessment & Plan (05/04/2022 8:32 AM CDT): -upsetting machine operator use of immunosuppressants and steroids complicates diabetes management. 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 More than 4 times per year 09/29/2022 Do you belong to any clubs o r organizations such as mandaeism groups, unions, fraternal or athletic groups, or [...] place to sleep or slept in a prison (including now)? No 09/29/2022 Personal Safety Answer Date Recorded Have you ever been in or are you currently in a harmful physical or emotional relationship or is someone making you feel afraid or unsafe? Denies 05/03/2023 Sex and Gender Information Value Date Recorded Sex Assigned at Not on file Legal Sex Male 12:49 PM HEAT TREATER APPRENTICE Gender Identity Not on file Sexual Orientation Not on file Last Filed Vital Signs Vital Sign Reading Time Taken Comments Blood Pressure 145/78 03/15/2024 11:09 AM HEAT TREATER APPRENTICE Pulse 66 03/15/2024 11:09 AM HEAT TREATER APPRENTICE Temperature 36.8 C (98.2 F) 03/15/2024 11:09 AM HEAT TREATER APPRENTICE Respiratory Rate 18 12/15/2023 11:24 AM CDT Oxygen Saturation 98% 01/06/2024 12:56 PM HEAT TREATER APPRENTICE Inhaled Oxygen Concentration - - Weight 83.6 kg (184 lb 3.2 oz) 03/15/2024 11:09 AM HEAT TREATER APPRENTICE Height 170.2 cm (5' 7 ) 03/15/2024 11:09 AM HEAT TREATER APPRENTICE Body Mass Index 28.85 03/15/2024 11:09 AM HEAT TREATER APPRENTICE Results * (ABNORMAL) CBC with auto differential (03/27/2024 7:51 AM HEAT TREATER APPRENTICE) [facility] SCRIBED WBC 6.1 4.8 - 10.8 k/[facility] SCRIBED Hemoglobin 16.2 14 - 18 g/dL [facility] SCRIB Hematocrit 48.2 40 - 54 % [facility] SCRIBED Platelets 116(A) 150 - 420 [facility] SCRIBED Lymphocytes Abs 1.03(A) 1.1 - 4.5 k/[facility] Blood 03/27/2024 7:51 AM HEAT TREATER APPRENTICE us Historical Provider LAB BLOOD ORDERABLES Edit ed Result - Final Performing Organization Address City/State/[facility] Co de Phone Number [address] [phone] * (ABNORMAL) Protein / creatinine ratio, urine, random (03/27/2024 7:51 AM HEAT TREATER APPRENTICE) [facility] Signature SCRIBED Protein, Urine 45.9(A) 0 - 11.9 MG/DL [facility] SCRIBED Creatinine, Urine 76.25 40 - 286 MG/DL [facility] SCRIBED Protein/Creat Ratio 0.60(A) 0 - 0.2 MG/MG [facility] Urine 03/27/2024 7:51 AM HEAT TREATER APPRENTICE us Historical Provider LAB URINE ORDERABLES Aida l Result [facility] [address] [phone] * (ABNORMAL) Tacrolimus level trough (03/27/2024) SCRIBED Tacrolimus, trough 3.0(A) 5 - 20 TXP NO LAB FOUND Blood 03/27/2024 us Historical Provider LAB BLOOD ORDERABLES Aida l Result Performing Organization Address City/[facility]/ZIP Co de Phone Number TXP NO LAB FOUND * (ABNORMAL) Renal function panel (03/27/2024) SCRIBED Calcium 8.9 8.5 - 10.1 mg/dl [facility] NO LAB FOUND SCRIBED Phosphorus 1.8(A) 2.6 - 4.7 mg/dl [facility] NO LAB FOUND SCRIBED Albumin 3.8 3.4 - 5.0 g/dl [facility] NO LAB FOUND SCRIBED Glucose 152(A) 70 - 99 mg/dl [facility] NO LAB FOUND SCRIBED Creatinine 1.78(A) 0.70 - 1.30 mg/dl [facility] NO LAB FOUND SCRIBED Sodium 142 136 - 145 mmol/L [facility] NO LAB FOUND SCRIBED Potassium 3.1(A) 3.5 - 5.1 mmol/L [facility] NO LAB FOUND SCRIBED Chloride 105 98 - 108 mmol/L TX[facility] NO LAB FOUND SCRIBED Carbon Dioxide 27 21 - 32 mmol/L TX[facility] NO LAB FOUND SCRIBED eGFR in NonAfrican [place]i 0 0 TXP NO LAB FOUND SCRIBED Urea Nitrogen (BUN) 34(A) 7 - 18 mg/dl TX[facility] NO LAB FOUND SCRIBED eGFR in 47 >=60 TXP NO LAB FOUND Blood 03/27/2024 Result [facility] Provider LAB BLOOD ORDERABLES Edit ed Result - Final Performing Organization Address [facility] de Phone Number TXP NO LAB FOUND * (ABNORMAL) Tacrolimus level trough (02/25/2024) SCRIBED Tacrolimus, trough 2.8(A) 5 - 20 TXP NO LAB FOUND Blood 02/25/2024 Result [facility] Provider LAB BLOOD ORDERABLES Aida l Result Performing Organization Address [facility] de Phone Number TXP NO LAB [...] TXP NO LAB FOUND Blood 02/25/2024 Result [facility] Provider LAB BLOOD ORDERABLES Edit ed Result - Final Performing Organization Address [facility] de Phone Number TXP NO LAB FOUND * (ABNORMAL) Albumin Creatinine Ratio, Urine (02/25/2024) SCRIBED Creatinine, Urine 102.95 40 - 278 TXP NO LAB FOUND SCRIBED Microalbumin >400.00 n/a TXP NO LAB FOUND SCRIBED Microalb/Creat Ratio 388.5(A) 0 - 30 TXP NO LAB FOUND Urine 02/25/2024 Result [facility] Provider LAB URINE ORDERABLES Edit ed Result - Final Performing Organization Address [facility] de Phone Number TXP NO LAB FOUND * Hemoglobin A1c (02/25/2024) SCRIBED Hemoglobin A1c 7.7 <57 % TXP NO LAB FOUND Blood 02/25/2024 [facility] Provider LAB BLOOD ORDERABLES Aida l Result Performing Organization Address [facility] de Phone Number TXP NO LAB [...] Units/L TXP NO LAB FOUND Blood 02/25/2024 [facility] Provider LAB BLOOD ORDERABLES Aida l Result Performing Organization Address [facility] Co de Phone Number [...] NO LAB FOUND SCRIBED eGFR in NonAfrican [place] 49 >60 TXP NO LAB FOUND SCRIBED Urea Nitrogen (BUN) 33(A) 7 - 18 mg/dl TXP NO LAB FOUND Blood 02/25/2024 Historical Provider MD LAB BLOOD ORDERABLES Aida l Result Performing Organization Address [facility] Co de Phone Number TXP NO LAB FOUND * (ABNORMAL) Lipid panel (02/25/2024) Pathologist [facility] SCRIBED Cholesterol, Total 165 0 - 200 TXP NO LA B FOUND SCRIBED HDL 45 40 - 60 TXP NO L AB FOUND SCRIBED LDL 61 <130 TXP NO L AB FOUND SCRIBED Triglycerides 293(A) 0 - 150 TXP NO LAB FOUND Blood 02/25/2024 Result [facility] Provider LAB BLOOD ORDERABLES Aida l Result Performing Organization Address [facility] de Phone Number TXP NO LAB FOUND * (ABNORMAL) Tacrolimus level trough (01/25/2024) Pathologist [facility] SCRIBED Tacrolimus, trough 3.7(A) 5 - 20 TXP NO LAB FOUND Blood 01/25/2024 Result [facility] Provider MD LAB BLOOD ORDERABLES Edit ed Result - Final Performing Organization Address [facility] Co de Phone Number [...] k/cumm TXP NO LAB FOUND Blood 01/25/2024 [facility] Provider LAB BLOOD ORDERABLES Edit ed Result - Final Performing Organization Address [facility]/ZIP Co de Phone Number TXP NO LAB FOUND * (ABNORMAL) Protein / creatinine ratio, urine, random (01/25/2024) SCRIBED Protein, Urine 64.4(A) 0 - 11.9 TXP NO LAB FOUND SCRIBED Creatinine, Urine 81.61 40 - 278 TXP NO LAB FOUND SCRIBED Protein/Creat Ratio 0.79(A) 0 - 0.20 TXP NO LAB FOUND Urine 01/25/2024 [facility] Provider LAB URINE ORDERABLES Iada l Result Performing Organization Address [facility] de Phone Number TXP NO LAB [...] NO LAB FOUND SCRIBED eGFR in NonAfrican [place] 0 0 TXP NO LAB FOUND SCRIBED Urea Nitrogen (BUN) 24(A) 7 - 18 mg/dl TXP NO LAB FOUND SCRIBED eGFR in 56 >60 TXP NO LAB FOUND Blood 01/25/2024 us Historical Provider LAB BLOOD ORDERABLES Edit ed Result - Final Performing Organization Address City/[facility] Co de Phone Number TXP NO LAB FOUND * (ABNORMAL) TSH reflex to free T4 (10/12/2022 10:23 AM CDT) TSH 7.31(H) 0.30 - 4.20 mcIUnit/mL [facility] Blood 10/12/2022 10:2 3 AM CDT 10/12/2022 10:40 AM CDT Milil GREEN LAB BLOOD ORDERABLES Aida l Result Performing Organization Address [facility] de Phone Number [facility] Department [place] [address] * PSA screen (09/24/2022 4:48 PM CDT) PSA-Total 0.54 <=5.40 ng/mL [facility] Comment: Interpretive Data AGE SEX REFERENCE [...] BLOOD ORDERABLES Final Result Performing Organization Address [facility] Co de Phone Number [facility] Department [place] [address] * Hepatitis C antibody (05/30/2019 1:17 PM CDT) Hep C Ab Nonreactive Nonreactive [facility] Blood specimen (specimen) 05/30/2019 1:17 PM CDT 05/30/2019 1:38 PM CDT Abi Fitzpatrick NP LAB MICROBIOLOGY - GENERAL ORDERABLES Edited Result - Final [facility] Department [place] [address] from Last 3 Months or Most Recently Relevant to Health Maintenance
--- OUTSIDE RECORDS SUMMARY | 2024-04-24 11:11 | XMS_ITS | Encounter Summary ---
Author Organization [facility] Address [facility] [place] [address] Care Team Providers Care Corporate Strategy Associate Name Role Phone Rigo Alvarenga MD Primary Care Provider [phone] Encounter Details Date Type Department Care Team (Late st Contact Info) Description 07/23/2018 Abstract [facility] CONVERSION [address] [place] [address] , Generic ConversionMD Social History Tobacco Use [...] on filedocumented in this encounter Care Teams Corporate Strategy Associate Relationship Specialty Start Date End Date Rigo Alvarenga MD [address] [place] [id number] PCP - General INTERNAL MEDICINE 06/19/19 documented as of this encounter
--- OUTSIDE RECORDS SUMMARY | 2024-04-24 11:11 | XMS_ITS | Referral Summary ---
Author Organization [facility] Address [address] [place] [address] Care Team Providers Care Obstetrics Gyn Name Role Phone Rigo Alvarenga MD Primary Care Provider [phone] Rand Collins RN Unavailable [phone] Felipe Foss MD Unavailable [phone] Encounters Date Type Department Care Team Description 04/05/2024 10:30 AM LEAD INSTALLER Telemedicine [facility] Nephrology [address] [facility] 5[address] [place] [address] [place] [address] Mary Decker MD Chronic diastolic heart failure (HCC) (Primary Dx); Dyslipidemia; Infiltrative cardiomyopathy (HCC); Primary hypertension; Other hyperlipidemia; Type 2 diabetes mellitus with hyperglycemia, with long-term current use of insulin (HCC); Vitamin D deficiency; Encounter for aftercare following kidney transplant; Renal osteodystrophy; Aftercare following organ transplant; Multiple myeloma in remission (HCC); Hypokalemia; Hypophosphatemia 03/29/2024 Lab [facility] Transplant Kidney [address] [facility] [address] Mailstop [phone] [place] [address] Arturo Garcia MD 03/28/2024 Orders Only [facility] Transplant Kidney [address] [facility] [address] Mailstop [phone] [place], [place] [id number] Shruthi Soto Kidney transplanted (Primary Dx); Encounter for long-term (current) use of medications; Hyperlipidemia, unspecified hyperlipidemia type; Frequent UTI; Type 1 diabetes mellitus with hyperglycemia (HCC) 03/15/2024 11:00 AM LEAD INSTALLER Office Visit [facility] Endocrinology Metabolism and Lipid [address] [facility] [address] [place] [address] [place] [address] Brian Ambrose MD Type 2 diabetes mellitus with other specified complication, unspecified whether local intermodal truck driver insulin use (HCC) (Primary Dx); Dyslipidemia; Vitamin D deficiency 03/01/2024 Telephone [facility] Endocrinology Metabolism and Lipid [address] [facility] [address] [place] [address] [place] [address] Isis Harper, prosthetics lab technician results high triglycerides 02/29/2024 Lab [facility] Transplant Kidney [address] [address] Mailstop [phone] [place] [address] Arturo Garcia MD 02/18/2024 Telephone [facility] Endocrinology Metabolism and Lipid [address] [place] [id number] Isis Harper, RN titrate mounjaro from 7.5 mg to 10 mg 01/26/2024 Lab [facility] Transplant Kidney [address] [facility] [address] Mailstop [phone] [place] [address] Arturo Garcia MD 01/25/2024 Lab [facility] Transplant Kidney [address] [address] Mailstop [phone] [place] [address] Arturo Garcia MD from Last 3 Months Allergies Active Allergy Reactions Criticality Noted Date Comments Codeine Cough Low 11/20/2015 Duloxetine Diarrhea,Hallucinations High 10/26/2012 Prednisone Rash,Other (See comments) Medium 05/16/2010 Acne-like pimples, all over At high doses. 06/20/19: Approved to give Prednisone per Dr. Elinor Villaseñor (Pato Garcia PharmD) Medications sour alvarez extract (TART ALVAREZ EXTRACT ORAL)Indication s:Gout,gout Take 1,200 mg by mouth every morning Active blood glucose strip-disp meter kit Use as directed. 1 kit 2 Active blood-glucose meter (OneTouch Verio Meter) miscIndications :Type 2 diabetes mellitus with other specified complication, unspecified whether local intermodal truck driver insulin use (HCC) Use to check blood [...] mellitus with other specified complication, unspecified whether local intermodal truck driver insulin use (HCC) Use to read missy 3 sensor 1 each 3 Active cholecalciferol (VITAMIN D-3) 2000 unit tabletIndicatio ns:Prevention of Vitamin D Deficiency Take 0.5 tablets (1,000 Units total) by mouth every morning Active FreeStyle Missy 3 [place] misc as directed Sugars have been way [...] mellitus with other specified complication, unspecified whether mcc insulin use (HCC) Inject 1 mg under the skin as needed (as needed for severe hypoglycemia) 0.4 mL 6 4 Active OneTouch Verio test strips stripIndication s:Type 2 diabetes mellitus with other specified complication, unspecified whether mcc insulin use (HCC) CHECK BLOOD SUGAR 3 TIMES A DAY 100 strip 11 4 Active allopurinoL (ZYLOPRIM) 100 mg tablet Take 1 tablet (100 mg total) by mouth daily 30 tablet 11 4 Active pyridoxine (VITAMIN B-6) 100 mg tablet Take 1 tablet (100 mg total) by mouth daily Active lancets (OneTouch Delica Plus Lancet) 30 gauge miscIndications :Type 2 diabetes mellitus with other specified complication, unspecified whether mcc insulin use (HCC) USE TO CHECK BLOOD [...] mellitus with other specified complication, unspecified whether local intermodal truck driver insulin use (HCC) Use to check blood [...] mellitus with other specified complication, unspecified whether local intermodal truck driver insulin use (HCC) TAKE 1 TABLET BY MOUTH EVERY DAY 90 tablet 3 4 Active tirzepatide (Mounjaro) 10 mg/0.5 mL pen injector injectionIndica tions:Type 2 diabetes mellitus with other specified complication, unspecified whether mcc insulin use (HCC) Inject 0.5 mL (10 [...] MM on Envarsus 1mg Discharge Preferences: Lab: [facility] , [phone] standing orders q Monthly, JARET VAZQUEZ, q3 HgbA1C Exp. 03/28/25 Home Health: [facility] /[phone] Local Pharmacy: [facility] [place] Special[facility]: [facility] Problem Noted Date Diagnosed [...] cardiology follow up. Discussed plan with attending wagon driver salesperson. HEATHER on CPAP 09/25/2022 Assessment & Plan [...] further with Dr. Yu. Will proceed with [facility] to better assess volume status and pulmonary [...] (04/30/2022): Added automatically from request for surgery [id number] Encounter for preadmission testing 04/24/2022 LAYO (acute [...] to hyperkalemia, resume pending transplant nephrology recs ([facility] medication) BPH (benign prostatic hyperplasia) 06/20/2019 Assessment & Plan (06/20/2019 4:45 AM CDT): Continue home flomax Kidney transplant recipient 05/31/2019 Assessment & Plan (09/21/2022 10:01 AM CDT): -ad terminal makeup operator use of immunosuppressants and steroids complicates diabetes management. Assessment & Plan (05/04/2022 8:32 AM CDT): -[facility] use of immunosuppressants and steroids complicates diabetes [...] (05/30/2019): Added automatically from request for surgery [id number] Pruritus 08/10/2018 ESRD (end stage renal disease) [...] Systemic lupus erythematosus (SLE) in adult 10/17 Resolved Problems Problem Noted Date Diagnosed Date Resolved Date Hypotension 11/25/2022 08/26/2023 Elevated brain natriuretic p eptide (BNP) level 07/17/2022 08/26/2023 ESRD (end stage renal disease) 11/18/2017 05/10/2018 Overview (11/18/2017): Added automatically from request for surgery [id number] Peritoneal dialysis catheter tunnel infection 10/28/19 18 09/12/2018 Overview (10/27/2017): Added automatically from request for surgery [id number] End-stage renal disease on hemodialysis 10/07/2017 05/10/2018 Overview (10/07/2017): Added automatically from request for surgery [id number] Stage 4 chronic kidney disease 01/16/2015 05/10/2018 Encounter for monitoring tacrolimus therapy 11/17/2010 09/12/2018 Immunizations Immunization Administration Dates Next Due Influenza, [...] often do you attend chur ch or advent services? More than 4 times per year 09/29/2022 Do you belong to any clubs o r organizations such as jain groups, unions, fraternal or athletic groups, or [...] place to sleep or slept in a intermediate (including now)? No 09/29/2022 Personal Safety Answer Date Recorded Have you ever been in or are you currently in a harmful physical or emotional relationship or is someone making you feel afraid or unsafe? Denies 05/03/2023 Sex and Gender Information Value Date Recorded Sex Assigned at Not on file Legal Sex Male 12:49 PM LEAD INSTALLER Gender Identity Not on file Sexual Orientation Not on file Last Filed Vital Signs Vital Sign Reading Time Taken Comments Blood Pressure 145/78 03/15/2024 11:09 AM LEAD INSTALLER Pulse 66 03/15/2024 11:09 AM LEAD INSTALLER Temperature 36.8 C (98.2 F) 03/15/2024 11:09 AM LEAD INSTALLER Respiratory Rate 18 12/15/2023 11:24 AM CDT Oxygen Saturation 98% 01/06/2024 12:56 PM LEAD INSTALLER Inhaled Oxygen Concentration - - Weight 83.6 kg (184 lb 3.2 oz) 03/15/2024 11:09 AM LEAD INSTALLER Height 170.2 cm (5' 7 ) 03/15/2024 11:09 AM LEAD INSTALLER Body Mass Index 28.85 03/15/2024 11:09 AM LEAD INSTALLER Plan of Treatment Not on file Medical Devices Implanted Type Area Forklift Operator Device Identifier Shelf Expiration Date Model / Serial / Lot [employer] Angio-Seal Vip 6fr Closere Device [id number] - [id number] - [id number] Implanted:Qty: 1 on 05/04/2022 by Juan Alston MD at [facility] Vascular Closure Device Left: Femoral [employer] Miguel 01/14/2023 [id number] / [id number] / [id number] [employer] [id number] [place] Acuseal 4-7mm 45cm Taper Graft Vascular Sterile - [id number] - [id number] Implanted:Qty: 1 on 11/01/2017 by Ace Payan MD at [facility] Left: Arm [employer] 04/22/2020 [id number] / [id number] / Explanted Type Area Forklift Operator Device Identifier Shelf Expiration Date Model / Serial / Lot Wi[employer] [id number] Universa 6fr 22cm Radiopaque Tip Positioner Interlacer Braid - [id number] Implanted:Qty: 1 on 05/30/2019 by Rosario Colbert MD at [facility] Explanted:Qty: 1 on 07/06/2019 by Con Shelby NP Stent Left: Ureter [employer] 08/21/2023 [id number] / / Description:Transplanted ure ter Procedures Procedure Name Priority Date/Time Associated Diagnosis Comments CBC WITH AUTO DIFFERENTIAL Routine 03/27/2024 7:51 AM LEAD INSTALLER PROTEIN / CREATININE RATIO, URINE, RANDOM Routine 03/27/2024 7:51 AM LEAD INSTALLER RENAL FUNCTION PANEL Routine 03/27/2024 TACROLIMUS LEVEL, [...] Relevant to Health Maintenance Results * (ABNORMAL) CBC with auto differential (03/27/2024 7:51 AM LEAD INSTALLER) SCRIBED WBC 6.1 4.8 - 10.8 k/cumm [facility] SCRIB Hemoglobin 16.2 14 - 18 g/dL [facility] SCRIB Hematocrit 48.2 40 - 54 % [facility] SCRIB Platelets 116(A) 150 - 420 k/cumm [facility] SCRIB Lymphocytes Abs 1.03(A) 1.1 - 4.5 k/Sharp [facility] Blood 03/27/2024 7:51 AM LEAD INSTALLER us Historical Provider LAB BLOOD ORDERABLES Edit ed Result - Final Performing Organization Address [facility] Co de Phone Number [address] [phone] * (ABNORMAL) Protein / creatinine ratio, urine, random (03/27/2024 7:51 AM LEAD INSTALLER) SCRIBED Protein, Urine 45.9(A) 0 - 11.9 MG/DL [facility] SCRIBED Creatinine, Urine 76.25 40 - 286 MG/DL [facility] SCRIBED Protein/Creat Ratio 0.60(A) 0 - 0.2 MG/MG [facility] Urine 03/27/2024 7:51 AM LEAD INSTALLER Historical Provider MD LAB URINE ORDERABLES Aida l Result Performing Organization Address [facility] Co de Phone Number [address] [phone] * (ABNORMAL) Tacrolimus level trough (03/27/2024) SCRIBED Tacrolimus, trough 3.0(A) 5 - 20 TXP NO LAB FOUND Blood 03/27/2024 Historical Provider LAB BLOOD ORDERABLES Aida l Result Performing Organization Address [facility] Co de Phone Number TXP NO [...] NO LAB FOUND SCRIBED eGFR in NonAfrican Mosotho 0 0 TXP NO LAB FOUND SCRIBED Urea Nitrogen (BUN) 34(A) 7 - 18 mg/dl TXP NO LAB FOUND SCRIBED eGFR in 47 >=60 TXP NO LAB FOUND Blood 03/27/2024 Result [facility] Historical Provider LAB BLOOD ORDERABLES Edit ed Result - Final Performing Organization Address [facility] de Phone Number TXP NO LAB FOUND * (ABNORMAL) Tacrolimus level trough (02/25/2024) SCRIBED Tacrolimus, trough 2.8(A) 5 - 20 TXP NO LAB FOUND Blood 02/25/2024 Result [facility] Provider LAB BLOOD ORDERABLES Aida l Result Performing Organization Address [facility] de Phone Number TXP NO LAB [...] ed Result - Final Performing Organization Address [facility] de Phone Number TXP NO LAB FOUND * (ABNORMAL) Albumin Creatinine Ratio, Urine (02/25/2024) SCRIBED Creatinine, Urine 102.95 40 - 278 TXP NO LAB FOUND SCRIBED Microalbumin >400.00 n/a TXP NO LAB FOUND SCRIBED Microalb/Creat Ratio 388.5(A) 0 - 30 TXP NO LAB FOUND Urine 02/25/2024 Result [facility] Provider LAB URINE ORDERABLES Edit ed Result - Final Performing Organization Address [facility] de Phone Number TXP NO LAB FOUND * Hemoglobin A1c (02/25/2024) SCRIBED Hemoglobin A1c 7.7 <57 % TXP NO LAB FOUND Blood 02/25/2024 Result [facility] Provider LAB BLOOD ORDERABLES Aida l Result Performing Organization Address [facility] de Phone Number TXP NO LAB [...] TXP NO LAB FOUND Blood 02/25/2024 Result [facility] Provider LAB BLOOD ORDERABLES Aida l Result Performing Organization Address [facility] de Phone Number TXP NO LAB [...] NO LAB FOUND SCRIBED eGFR in NonAfrican Mosotho 49 >60 TXP NO LAB FOUND SCRIBED [...] TXP NO LAB FOUND Blood 01/25/2024 Result [facility] Provider MD LAB BLOOD ORDERABLES Edit ed Result - Final Performing Organization Address [facility] de Phone Number TXP NO LAB [...] TXP NO LAB FOUND Blood 01/25/2024 Result [facility] MD LAB BLOOD ORDERABLES Edit ed Result - Final Performing Organization Address [facility] de Phone Number TXP NO LAB FOUND * (ABNORMAL) Protein / creatinine ratio, urine, random (01/25/2024) SCRIBED Protein, Urine 64.4(A) 0 - 11.9 TXP NO LAB FOUND SCRIBED Creatinine, Urine 81.61 40 - 278 TXP NO LAB FOUND SCRIBED Protein/Creat Ratio 0.79(A) 0 - 0.20 TXP NO LAB FOUND Urine 01/25/2024 Result [facility] Provider MD LAB URINE ORDERABLES Aida l Result Performing Organization Address [facility] de Phone Number TXP NO LAB [...] NO LAB FOUND SCRIBED eGFR in NonAfrican Mosotho 0 0 TXP NO LAB FOUND SCRIBED Urea Nitrogen (BUN) 24(A) 7 - 18 mg/dl TXP NO LAB FOUND SCRIBED eGFR in 56 >60 TXP NO LAB FOUND Blood 01/25/2024 Historical Provider MD LAB BLOOD ORDERABLES Edit ed Result - Final [facility] * (ABNORMAL) TSH reflex to free T4 (10/12/2022 10:23 AM CDT) TSH 7.31(H) 0.30 - 4.20 mcIUnit/mL [facility] Blood 10/12/2022 10:2 3 AM CDT 10/12/2022 10:40 AM CDT Milli GREEN LAB BLOOD ORDERABLES Aida l Result [facility] Department [place] [address] * PSA screen (09/24/2022 4:48 PM CDT) PSA-Total 0.54 <=5.40 ng/mL [facility] Comment: Interpretive Data AGE SEX REFERENCE INTERVAL [...] BLOOD ORDERABLES Final Result Performing Organization Address City/[facility]/ZIP Co de Phone Number [facility] [place] [address] * Hepatitis C antibody (05/30/2019 1:17 PM CDT) Hep C Ab Nonreactive Nonreactive [facility] Blood specimen (specimen) 05/30/2019 1:17 PM CDT 05/30/2019 1:38 PM CDT Abi Fitzpatrick NP LAB MICROBIOLOGY - GENERAL ORDERABLES Edited Result - Final Performing Organization Address [facility] Co de Phone Number [facility] [place] [address] from Last 3 Months or Most Recently Relevant to Health Maintenance Insurance [employer] [facility] MEDICARE [facility] [employer] [facility] WORKERS COMPENSATION GENERIC COMPENSATION Advance Directives For more information, please contact: [phone] Documents on File Type Date Recorded Patient Screen Repairer Crusher Expl anation ADVANCE DIRECTIVE 04/07/2019 2:18 PM Becky valdezy [email or web address] * Full Code (Latest Code Status [...] 8:43 AM 05/15/2021 12:44 PM Care Teams Obstetrics Gyn Relationship Specialty Start Date End Date Rigo Alvarenga MD PCP - General 03/31/17 Rand Collins, RN [address] [facility] [address] [place] [address] Acute Care Surgeon 05/31/19 Felipe Foss MD [address] [place] [address] Medical Oncologist/Industrial Gas Production Operator Hematology and Oncology 01/04/23
--- OUTSIDE RECORDS SUMMARY | 2024-04-24 11:11 | XMS_ITS ---
Author Organization [facility] Address [address] [place] [address] Care Team Providers Care Rapid Extractor Operator Name Role Phone Rigo Alvarenga MD Primary Care Provider [phone] Rand Collins RN Unavailable [phone] Felipe Foss MD Unavailable [phone] Transplant Episode Kidney Recipient [facility] ([place], [place]) - [facility] Organ Received: Left Kidney Transplanted on 05/30/2019 Marked as Active Follow-up on 05/30/2019 Reason: Transplanted at [facility] Kidney CoordinatorRand Collins RN Fax: N/A Email: N/A [place] Organ Diagnosis Organ Primary Contributory Kidney Focal [...] Fax Email Rand Collins RN Kidney Coordinator [phone] N/A N/A Miguel Hernandez MD Referring Physician [phone] N/A Darshana Dean RN Secondary Coordinator [phone] N/A N/A aRnd Collins RN Claim Review Medical Director [phone] N/A N/A Shruthi Soto Primary Accounts Payable Manager N/A N/A N/A Chapo Nelson Secondary Accounts Payable Manager N/A N/A N/A Cecelia Wilcox Senior Net C Developer [phone] N/A N/A Events Post-Transplant Pre-Transplant Admitted: 05/30/2019 Referred: 04/02/2015 Transplanted: 05/30/2019 Evaluation began: 6 Discharged: 06/02/2019 Center waitlisted: 6 Appointments (03/27/2024 - 05/25/2024) When With Visit Type Description 04/05/2024 Transplant - Edith Decker Telemedicine Appoint ment Chronic diastolic heart failure (HCC) (Primary Dx); Dyslipidemia; Infiltrative cardiomyopathy (HCC); Primary hypertension; Other hyperlipidemia; Type 2 diabetes mellitus with hyperglycemia, with long-term current use of insulin (HCC); Vitamin D deficiency; Encounter for aftercare following kidney transplant; Renal osteodystrophy; Aftercare following organ transplant; Multiple myeloma in remission (HCC); Hypokalemia; Hypophosphatemia Dialysis History Dialysis History Start End Type [facility] 12/18/2015 05/30/2019 Home Hemodialysis Hemo [facility] Dialysis Center Information Center Phone Fax Address [facility] [phone] [address] [facility] [address]
--- OUTSIDE RECORDS SUMMARY | 2024-04-24 11:11 | XMS_ITS | Data Portability ---
Author Organization [place] [facility], Main Office Address [address] [place] [address] Care Team Providers Care Senior Piping Designer Name Role Phone FELICIA NEELY Primary Care Provider DANIAL GENTILE Motorcycle Repairer JORGE BEAR Drapery Rod Assembler [phone] MEENU STOVER Chief Design Branch USHA BLAIR Pumper Gauger QUENTIN ADHIKARI Neurologist Assessment No assessment recorded. Plan of Treatment Reminders Order Date Submit Date Provider Last Modified By Organization Details Last Modified Time Details Appointments None recorded. Lab None recorded. Referral None recorded. Procedures None recorded. Surgeries None recorded. Imaging None recorded. Medication Orders cefdinir 300 mg capsule 2023 024 [place] [id number], [address] [place], [address], 4 15:21:56 cefdinir 300 mg capsule 2022 023 [id number], [address] [place], [address], 4 14:19:24 Patient TargetsNo targets recorded. Patient Instructions Encounter Date Encounter Id Patient Instructions Last Modified By Organization Details Last Modified Time 02/11/2023 [id number] this patient's symptoms are consistent with chronic sinusitis but with a history of multiple myeloma imaging is required [email or web address] Not available 02/11/2023 11:55:18 Reason for Referral None Reported. Results Created Date Observation Date Name Description Value Unit Range Abnormal Flag Note LastModifiedBy Organization Detail LastModifiedTime 02/17/19 24 02/12/2023 CT, sinus es, w/o contr ast No observ ation record ed. [address] [place], [address], 02/17/2023 14:40:43 02/18/19 24 02/12/2023 CT, sinus es, w/o contr ast No observ ation record ed. [address] [place], [address], 02/22/2023 15:44:23 06/28/19 24 06/25/2023 CT, head, w/ contr ast No observ ation record ed. [address] [place], [address], 06/28/2023 12:41:54 07/02/19 24 06/25/2023 CT, head, w/ contr ast No observ ation record ed. [address]) [address] [place], [address], 07/06/2023 09:39:15 07/13/19 24 07/13/2023 audio gram + tympa nogra m No observ ation record ed. [place] [email or web address] Not Available 2023 16:19:29 07/16/19 24 07/16/2023 audio gram + tympa nogra m No observ ation record ed. [facility] (Audiology) [address] [place] [address] [place] [address], [phone], 07/16/2023 11:10:06 Result Notes None recorded. Problems Name Problem SNOMED Code Status Onset Date Resolution Date Notes Provider Name and Address Organization Details Recorded Time Chronic sinusitis 83175157 Active 2022 Marguerite Shoemaker RN null, [facility] 11:52:03 Sensorineural hearing loss 39504224 Active 2023 Marguerite Shoemaker RN null, [facility] 4 15:13:31 Multiple myeloma 561983939 Active 2023 Marguerite Shoemaker RN null, [facility] 4 15:13:44 Bilateral chronic serous otitis 400780824 Active 2023 Gaston Calderon MD [address] [facility], [facility] [address], [place], [address] [place] [address] [employer] 4 15:21:09 Problem Notes None recorded. Procedures Surgical History Date Name Laterality Status Provider Name and Address Organization Details Recorded Time Kidney completed ISAIAH Ribeiro [facility] 01/12/2023 13:00:19 Imaging Results Imaging Date Name Status LastModified by Organiz ation Details LastModified Time 02/12/2023 CT, sinuses, w/o contrast completed [email or web address] [facility] [address] [place], [address], 02/17/2023 14:40:43 02/12/2023 CT, sinuses, w/o contrast completed [email or web address] [facility] [address] [place], [address], 02/22/2023 15:44:23 06/25/2023 CT, head, w/ contrast completed [email or web address] [facility] [address] [place], [address], 06/28/2023 12:41:54 06/25/2023 CT, head, w/ contrast completed [email or web address] [facility]) [address] [place], [address], 07/06/2023 09:39:15 07/13/2023 audiogram + tympanogram completed [email or web address] Information not available 07/13/2023 16:19:29 07/16/2023 audiogram + tympanogram completed [facility] (Audiology) [address] [place] [address], [address], 07/16/2023 11:10:06 Procedure Notes None recorded. Medical Equipment None Reported. Allergies Allergen ID Allergen Name Allergen Category Reaction Reaction Severity Criticality Documentation Date Start Date Code Code System Note Provider Name and Address Organization Details Recorded Time 34539 prednison e medicatio n rash Not available Not available 01/12/2023 8640 RxNorm PT REPOR TS HIGH DOSAG ES OF PREDN ISONE CAUSE S RASH [facility] 12:48:29 30703 lisinopri l medicatio n cough Not available Not available 01/12/2023 51599 RxNorm CAUSE S DRY COUGH [facility] 12:48:56 30420 codeine medicatio n cough Not available Not available 01/12/2023 2670 RxNorm [facility] 3 12:49:09 92503 duloxetin e medicatio n hallucina tions severe Not available 01/12/2023 39487 RxNorm [facility] 12:49:34 Medications Name Sig Start Date [...] Not Available Not Available Not Available Nasal [place] Bottle active Not Available Not Available Not [...] Available No t Available [employer] Missy 3 Morris USE DIRECTED 02/11 completed Not Available Not Available Not Available Vitals Date Recorded Body height Body temperature Body mass index (BMI) Body weight Provider Name and Address Organization Details Last Updated DateTime 02/11/2023 170.18 cm 98.5 [degF] 25.1 kg/m2 89231.78 g Marguerite Shoemaker RN [facility] [employer] 02/11/2023 11:34:54 Date Recorded Body height Body mass index (BMI) Body weight Body temperature Provider Name and Address Organization Details Last Updated DateTime 06/17/2023 170.18 cm 26.9 kg/m2 50404.89 g 98.4 [degF] Marguerite Shoemaker RN [facility] 06/17/2023 14:56:07 Social History Question Answer Notes LastModified by Organizat ion Details LastModified Time Tobacco Smoking Status Never Smoker ISAIAH Ribeiro, [facility] 01/12/2023 12:50:49 What Is Your Level Of [...] SNOMED-CT Code Diagnosis ICD10 Code Diagnosis Note [id number] Gaston Calderon MD [facility] [address] [place] [address] 02/11/2023 10:48:37 02/11/2023 12:03:10 Chronic sinusitis 31169938 J32.9 [id number] Gaston Calderon MD [facility] [address] [place] [address] 06/17/2023 14:35:51 06/18/2023 10:52:31 Bilateral chronic serous otitis 036183711 H65.23 Multiple myeloma 4822801 06 C90.00 Chronic sinusitis 943971 00 J32.9 Health Concerns Section Related Observation LastModified by Organization Detai ls LastModified Time None Recorded Concern Status LastModified by Organization Details LastModified Time None Recorded Advance Directives Directive None Recorded Payers Encounter Date Sequence Insurance Name Policy Number Policy Gates Covered Member ID Gates Member ID Guarantor Name 02/11/2023 1 [place] Zachary Melton [id number] Zachary Melton 02/11/2023 2 [place] [id number] Zachary Melton [id number] Zachary Melton 06/17/2023 1 [place] Zachary Melton [id number] Zachary Melton 06/17/2023 1 [employer] (MEDICARE REPLACEMENT PPO) [id number] Zachary Johnstony [id number] Zachary Melton Notes Date Note Type Note [...] this. Gaston Calderon MD [address] [facility], [place], [address], [employer] [facility] 02/11/2023 11:55:45 06/17/2023 text/html this patient has recently been diagnosed with multiple myeloma. His CT scan in January revealed sinusitis and since then he has been treated with antibiotics. He now reports that he is having temporoparietal pain and was told that he had middle ear fluid Gaston Calderon MD [address], [place], [address], [employer] 06/17/2023 15:22:16
--- OUTSIDE RECORDS SUMMARY | 2024-04-24 11:11 | XMS_ITS | Encounter Summary ---
Author Organization [facility] Address [address] [facility] [place] [address] Phone Care Team Providers Care Body Line Finisher Name Role Phone Rigo Alvarenga MD Primary Care Provider [phone] Rand Collins RN Unavailable [phone] Felipe Foss MD Unavailable [phone] Encounter Details Date Type Department Care Team [...] often do you attend chur ch or confucianist services? 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
--- OUTSIDE RECORDS SUMMARY | 2024-04-24 11:11 | XMS_ITS | Patient Health Record ---
Author Organization [facility] Address [address] [place], [place] [id number] Care Team Providers Care Primary Care Nurse Name Role Phone MELA VENTURA Unavailable [phone] Rigo Alvarenga Unavailable Unavailable ALVIN JUNIOR Unavailable [phone] Allergies Allergen (clinical drug ingredient) Drug/Non Drug [...] 09/09/2023 Encounters Encounter Location Date Provider Diagnosis [facility] [address] [place], [place] [id number] 09/09/2023 ALVIN BABCOCKANA Unspecified atherosclerosis of southern ute arteries of extremities, bilateral legs I70.203 ; Tinea pedis B35.3 ; Tinea unguium B35.1 ; Pain in right toe(s) M79.674 and Pain in left toe(s) M79.[address] [id number] 10/07/2023 ALVIN VERNON Unspecified atherosclerosis of southern ute arteries of extremities, bilateral legs I70.203 and [...] and prescription treatments. 09/09/2023 Unspecified atherosclerosis of southern ute arteries of extremities, bilateral legs (ICD-10 - [...] of lotrisone cream. 10/07/2023 Unspecified atherosclerosis of southern ute arteries of extremities, bilateral legs (ICD-10 - [...] Date Coverage End Date [employer] [address] [place] [phone] [id number] HUSSAIN SARGENT Self - patient is the insured Medical (General) History Medical History History ICD Code acid reflux neuropathy skin cancer angina Radiation therapy Epilepsy high blood pressure
--- OUTSIDE RECORDS SUMMARY | 2024-04-24 11:11 | XMS_ITS ---
Author Organization [facility] Address [address] [place], [place] [id number] Care Team Providers Care Attendance Secretary Name Role Phone MELA VENTURA Unavailable [phone] Rigo Alvarenga Unavailable Unavailable ALVIN JUNIOR Unavailable [phone] REASON FOR VISIT *General care Encounters Encounter Location Date Provider Diagnosis [facility] [address] [place], [place] [id number] 11/18/2023 ALVIN JUNIOR Plan Of Treatment No Information Progress Notes * ROSETTAHUSSAINDOB:1960 (63 yo M)Acc No.[id number]:11/18/2023 Patient: Onel OCONNORYISAIAHHUSSAIN Provider: Onel JUNIOR :1960 A ge:63 Y S ex:Male Date:11/18/2023 Address:[address] [place], [place] Subjective: * Chief Complaints: * 1 . *General care. * Medical History: Objective: * Vitals: Assessment: Plan: * Treatment: * Billing Information: * Visit Code: * Procedure Codes: * Electronic signature of MALIKA JUNIOR DPM on 04/24/2024 at 11:10 AM CDT Sign off status: Pending * Provider: Onel JUNIOR Date: 1 Generated for Bibiana felder/Dulce/Davinaitting on: 0 04/24/2024 11:10 AM CDT
--- OUTSIDE RECORDS SUMMARY | 2024-04-24 11:11 | XMS_ITS | Clinical Summary ---
Author Organization [facility] Address [address] [place] [address] Care Team Providers Care Topper Press Operator Automatic Name Role Phone Rigo Alvarenga MD Primary Care Provider [phone] Rand Collins RN Unavailable [phone] Felipe Foss MD Unavailable [phone] Allergies Active Allergy Reactions Criticality Noted Date [...] with other specified complication, unspecified whether senior care insulin use (HCC) Use to check blood [...] mellitus with other specified complication, unspecified whether long chain quiller tender insulin use (HCC) Use to read missy 3 sensor 1 each 3 Active cholecalciferol (VITAMIN D-3) 2000 unit tabletIndicatio ns:Prevention of Vitamin D Deficiency Take 0.5 tablets (1,000 Units total) by mouth every morning Active FreeStyle Missy 3 [place] misc as directed Sugars have been way [...] with other specified complication, unspecified whether senior care insulin use (HCC) Inject 1 mg under the skin as needed (as needed for severe hypoglycemia) 0.4 mL 6 4 Active OneTouch Verio test strips stripIndication s:Type 2 diabetes mellitus with other specified complication, unspecified whether long chain quiller tender insulin use (HCC) CHECK BLOOD SUGAR 3 [...] mellitus with other specified complication, unspecified whether long chain quiller tender insulin use (HCC) USE TO CHECK BLOOD [...] with other specified complication, unspecified whether senior care insulin use (HCC) Use to check blood [...] with other specified complication, unspecified whether senior care insulin use (HCC) TAKE 1 TABLET BY MOUTH EVERY DAY 90 tablet 3 4 Active tirzepatide (Mounjaro) 10 mg/0.5 mL pen injector injectionIndica tions:Type 2 diabetes mellitus with other specified complication, unspecified whether senior care insulin use (HCC) Inject 0.5 mL (10 [...] MM on Envarsus 1mg Discharge Preferences: Lab: [facility] , [phone] standing orders q Monthly, FK,UPE, q3 HgbA1C Exp. 03/28/25 Home Health: [facility] /[phone] Local Pharmacy: [facility] in [place] Specialty Pharmacy: [facility] Problem Noted Date Diagnosed [...] cardiology follow up. Discussed plan with attending shell trim operator. HEATHER on CPAP 09/25/2022 Assessment & Plan [...] further with Dr. Yu. Will proceed with [facility] to better assess volume status and [...] (04/30/2022): Added automatically from request for surgery [id number] Encounter for preadmission testing 04/24/2022 LAYO (acute [...] gluconate, insulin, and kayaxelate -upon arrival to [facility] ED, K 6.0, WBK 5.6 no additional therapies given -Repeat K and WBK on arrival, manage as appropriate -likely transfer to floor later this morning -renal transplant consult in AM -hold bactrim for time being as could be contributing to hyperkalemia, resume pending transplant nephrology recs ([facility] medication) BPH (benign prostatic hyperplasia) 06/20/2019 Assessment & Plan (06/20/2019 4:45 AM CDT): Continue home flomax Kidney transplant recipient 05/31/2019 Assessment & Plan (09/21/2022 10:01 AM CDT): -FCI use of immunosuppressants and steroids complicates diabetes management. Assessment & Plan (05/04/2022 8:32 AM CDT): -termite control servicer use of immunosuppressants and steroids complicates diabetes [...] (05/30/2019): Added automatically from request for surgery [id number] Pruritus 08/10/2018 ESRD (end stage renal disease) [...] (11/18/2017): Added automatically from request for surgery [id number] Peritoneal dialysis catheter tunnel infection 10/28/19 18 09/12/2018 Overview (10/27/2017): Added automatically from request for surgery [id number] End-stage renal disease on hemodialysis 10/07/2017 05/10/2018 Overview (10/07/2017): Added automatically from request for surgery [id number] Stage 4 chronic kidney disease 01/16/2015 05/10/2018 Encounter for monitoring tacrolimus therapy 11/17/2010 09/12/2018 Encounters Date Type Department Care Team Description 04/05/2024 10:30 AM WINDSURFING INSTRUCTOR Telemedicine [facility] Nephrology [address] [facility] Advanced Medicine 5th [place] [address] [place] [address] Mary Decker MD Chronic diastolic heart failure (HCC) (Primary Dx); Dyslipidemia; Infiltrative cardiomyopathy (HCC); Primary hypertension; Other hyperlipidemia; Type 2 diabetes mellitus with hyperglycemia, with long-term current use of insulin (HCC); Vitamin D deficiency; Encounter for aftercare following kidney transplant; Renal osteodystrophy; Aftercare following organ transplant; Multiple myeloma in remission (HCC); Hypokalemia; Hypophosphatemia 03/29/2024 Lab [facility] Transplant Kidney [address] [facility] [address] [place] [address] Arturo Garcia MD 03/28/2024 Orders Only [facility] Transplant Kidney [address] [facility] [address] [place] [address] Shruthi Soto Kidney transplanted (Primary Dx); Encounter for long-term (current) use of medications; Hyperlipidemia, unspecified hyperlipidemia type; Frequent UTI; Type 1 diabetes mellitus with hyperglycemia (HCC) 03/15/2024 11:00 AM WINDSURFING INSTRUCTOR Office Visit [facility] Endocrinology Metabolism and Lipid [address] [facility] 13th [place] [address] [place] [address] Brian Ambrose MD Type 2 diabetes mellitus with other specified complication, unspecified whether long chain quiller tender insulin use (HCC) (Primary Dx); Dyslipidemia; Vitamin D deficiency 03/01/2024 Telephone [facility] Endocrinology Metabolism and Lipid [address] [facility] 13th [place] [address] [place] [address] Isis Harper, ballistics laboratory gunsmith results high triglycerides 02/29/2024 Lab [facility] Transplant Kidney [address] [facility] [address] [place] [address] Arturo Garcia MD 02/18/2024 Telephone [facility] Endocrinology Metabolism and Lipid [address] [place] [address] [place] [address] Isis Harper, RN titrate mounjaro from 7.5 mg to 10 mg 01/26/2024 Lab [facility] Transplant Kidney [address] [facility] [address] [place] [address] Arturo Garcia MD 01/25/2024 Lab [facility] Transplant Kidney [address] [facility] [address] [place] [address] Arturo Garcia MD from Last 3 Months Immunizations Immunization Administration Dates Next Due Influenza, Trivalent, IM (MDV) 7,12/05/2015,11/15/2014,12/30,10/30/2012 Influenza, Trivalent, Preser vative Free, Intramuscular 02/15/2009 Influenza, Unspecified 11/15/2020 Moderna SARS-CoV-2 Monovalen t Vaccination (12+ YRS) 05/17/2020,04/19/2020 Surgical History Surgery Date Site/Laterality Comments PERITONEAL CATHETER INSERTION TUNNELED 11/11/2015 N/A Removed 2017 MT BRNCC INCL FLUOR GDNCE DX W/CELL WASHG [...] (gastroesophageal reflux disease) ESRD (end stage renal disease) (HCC) s/p PD 6399-0130, HD 9961-1123 and kidney tx 2010 & 2019 Gout History of peritoneal dialysis 2 -2017 Arthritis Sleep apnea Uses CPAP grabiel e nightly Hard to intubate 11/01/2017 subsequent thro at pain, right gland pain and bit upper lip; No documented difficulty with most recent surgery 05/2019 Acute respiratory failure re quiring reintubation (HCC) Peritoneal dialysis catheter tunnel infection 10/27/2017 Added automatically from req uest for surgery [id number] Diabetes mellitus (HCC) Dxd ~201 1 Heart murmur Multiple myeloma (HCC) Multiple myeloma dxd ~11/2022-- Treated with Revlimid Heart failure with preserved ejection fraction (HCC) Per TTE 09/2022-- EF 84% with grade I diastolic dysfunction Pulmonary hypertension (HCC) Per RHC 09/10/2022-- PA pressure 49/20 mmHg (mean 28 mmHg); PA wedge pressure 13 mmHg; Per TTE 09/29/2022-- PASP 37 mmHg CHF (congestive heart failure) (HCC) Type 2 diabetes mellitus (HCC) Family [...] How often do you attend chur or scientologist services? More than 4 times per year 09/29/2022 Do you belong to any clubs o r organizations such as restorationist groups, unions, fraternal or athletic groups, or [...] place to sleep or slept in a jail (including now)? No 09/29/2022 Personal Safety Answer Date Recorded Have you ever been in or are you currently in a harmful physical or emotional relationship or is someone making you feel afraid or unsafe? Denies 05/03/2023 Sex and Gender Information Value Date Recorded Sex Assigned at Not on file Legal Sex Male 12:49 PM WINDSURFING INSTRUCTOR Gender Identity Not on file Sexual Orientation Not on file Obstetrics History Last Filed Vital Signs Vital Sign Reading Time Taken Comments Blood Pressure 145/78 03/15/2024 11:09 AM WINDSURFING INSTRUCTOR Pulse 66 03/15/2024 11:09 AM WINDSURFING INSTRUCTOR Temperature 36.8 C (98.2 F) 03/15/2024 11:09 AM WINDSURFING INSTRUCTOR Respiratory Rate 18 12/15/2023 11:24 AM CDT Oxygen Saturation 98% 01/06/2024 12:56 PM WINDSURFING INSTRUCTOR Inhaled Oxygen Concentration - - Weight 83.6 kg (184 lb 3.2 oz) 03/15/2024 11:09 AM WINDSURFING INSTRUCTOR Height 170.2 cm (5' 7 ) 03/15/2024 11:09 AM WINDSURFING INSTRUCTOR Body Mass Index 28.85 03/15/2024 11:09 AM WINDSURFING INSTRUCTOR Plan of Treatment Health Maintenance Due Date Last Done Comments Colon Cancer Screening-Colonoscopy 1960 Dilated Eye Exam 08/14/1971 DTaP/Tdap/Td Vaccine (1 - Tdap) 1972 Hepatitis B Screening 08/14/1979 Regular Well Visit/Exam 18-64 08/14/1979 Pneumococcal vaccine <65 (1 of 2 - PCV) 1980 Zoster Vaccine (1 of 2) 1980 Covid-19 [...] 02/25/2024, 11/15, 11/17/2023, Additional history exists eGFR 03/27/2025 03/27/2024, 02/15, 01/25/2024, Additional history exists Hepatitis C Screening Completed 05/30/2019 , 12/20/2018, 10/11/2017, Additional history exists Medical Devices Implanted Type Area Deckhand Device Identifier Shelf Expiration Date Model / Serial / Lot [employer] Angio-Seal Vip 6fr Closere Device [id number] - [id number] - [id number] Implanted:Qty: 1 on 05/04/2022 by Juan Alston MD at [facility] Vascular Closure Device Left: Femoral [employer] 01/14/2023 [id number] / [id number] / [id number] [employer] [id number] Hewitt Acuseal 4-7mm 45cm Taper Graft Vascular Sterile - [id number] - [id number] Implanted:Qty: 1 on 11/01/2017 by Ace Payan MD at [facility] Left: Arm [employer] 04/22/2020 [id number] / [id number] / Explanted Type Area Deckhand Device Identifier Shelf Expiration Date Model / Serial / Lot [id number] [id number] Universa 6fr 22cm Radiopaque Tip Positioner Pool Hand Braid - [id number] Implanted:Qty: 1 on 05/30/2019 by Rosario Colbert MD at [facility] Explanted:Qty: 1 on 07/06/2019 by Con Shelby NP Stent Left: Ureter [employer] 08/21/2023 [id number] / / Description:Transplanted ure ter Procedures Procedure Name Priority Date/Time Associated Diagnosis Comments CBC WITH AUTO DIFFERENTIAL Routine 03/27/2024 7:51 AM WINDSURFING INSTRUCTOR PROTEIN / CREATININE RATIO, URINE, RANDOM Routine 03/27/2024 7:51 AM WINDSURFING INSTRUCTOR RENAL FUNCTION PANEL Routine 03/27/2024 TACROLIMUS LEVEL, [...] CBC with auto differential (03/27/2024 7:51 AM WINDSURFING INSTRUCTOR) SCRIBED WBC 6.1 4.8 - 10.8 k/cumm [facility] SCRIB Hemoglobin 16.2 14 - 18 g/dL [facility] SCRIB Hematocrit 48.2 40 - 54 % [facility] SCRIBED Platelets 116(A) 150 - 420 k/cumm [facility] SCRIBED Lymphocytes Abs 1.03(A) 1.1 - 4.5 k/cumm [facility] Blood 03/27/2024 7:51 AM WINDSURFING INSTRUCTOR us Historical Provider LAB BLOOD ORDERABLES Edit ed Result - Final [address] [phone] * (ABNORMAL) Protein / creatinine ratio, urine, random (03/27/2024 7:51 AM WINDSURFING INSTRUCTOR) SCRIBED Protein, Urine 45.9(A) 0 - 11.9 MG/DL [facility] SCRIBED Creatinine, Urine 76.25 40 - 286 MG/DL [facility] SCRIBED Protein/Creat Ratio 0.60(A) 0 - 0.2 MG/MG [facility] Urine 03/27/2024 7:51 AM WINDSURFING INSTRUCTOR Historical Provider MD LAB URINE ORDERABLES Aida l Result Performing Organization Address [facility] Co de Phone Number [address] [phone] * (ABNORMAL) Tacrolimus level trough (03/27/2024) SCRIBED Tacrolimus, trough 3.0(A) 5 - 20 TXP NO LAB FOUND Blood 03/27/2024 Historical Provider LAB BLOOD ORDERABLES Aida l Result Performing Organization Address [facility] Co de Phone [...] NO LAB FOUND SCRIBED eGFR in NonAfrican [place]i 0 0 TXP NO LAB FOUND SCRIBED Urea Nitrogen (BUN) 34(A) 7 - 18 mg/dl TXP NO LAB FOUND SCRIBED eGFR in 47 >=60 TXP NO LAB FOUND Blood 03/27/2024 Result [facility] Provider MD LAB BLOOD ORDERABLES Edit ed Result - Final Performing Organization Address [facility] de Phone Number TXP NO LAB FOUND * (ABNORMAL) Tacrolimus level trough (02/25/2024) SCRIBED Tacrolimus, trough 2.8(A) 5 - 20 TXP NO LAB FOUND Blood 02/25/2024 Result [facility] Provider LAB BLOOD ORDERABLES Aida l Result Performing Organization Address [facility] de Phone Number TXP NO LAB [...] k/cumm TXP NO LAB FOUND Blood 02/25/2024 [facility] Provider LAB BLOOD ORDERABLES Edit ed Result - Final Performing Organization Address [facility] de Phone Number TXP NO LAB FOUND * (ABNORMAL) Albumin Creatinine Ratio, Urine (02/25/2024) SCRIBED Creatinine, Urine 102.95 40 - 278 TXP NO LAB FOUND SCRIBED Microalbumin >400.00 n/a TXP NO LAB FOUND SCRIBED Microalb/Creat Ratio 388.5(A) 0 - 30 TXP NO LAB FOUND Urine 02/25/2024 Result [facility] Provider LAB URINE ORDERABLES Edit ed Result - Final Performing Organization Address [facility] de Phone Number TXP NO LAB FOUND * Hemoglobin A1c (02/25/2024) SCRIBED Hemoglobin A1c 7.7 <57 % TXP NO LAB FOUND Blood 02/25/2024 Result [facility] Provider LAB BLOOD ORDERABLES Aida l Result Performing Organization Address [facility] de Phone Number TXP NO LAB [...] TXP NO LAB FOUND Blood 02/25/2024 Result [facility] Provider LAB BLOOD ORDERABLES Aida l Result Performing Organization Address [facility] de Phone Number TXP NO LAB [...] NO LAB FOUND SCRIBED eGFR in NonAfrican [place]i 49 >60 TXP NO LAB FOUND SCRIBED [...] TXP NO LAB FOUND Blood 01/25/2024 Result [facility] Provider MD LAB BLOOD ORDERABLES Edit ed Result - Final Performing Organization Address [facility] de Phone Number TXP NO LAB [...] TXP NO LAB FOUND Blood 01/25/2024 Result [facility] Provider LAB BLOOD ORDERABLES Edit ed Result - Final Performing Organization Address [facility] de Phone Number TXP NO LAB FOUND * (ABNORMAL) Protein / creatinine ratio, urine, random (01/25/2024) SCRIBED Protein, Urine 64.4(A) 0 - 11.9 TXP NO LAB FOUND SCRIBED Creatinine, Urine 81.61 40 - 278 TXP NO LAB FOUND SCRIBED Protein/Creat Ratio 0.79(A) 0 - 0.20 TXP NO LAB FOUND Urine 01/25/2024 Result [facility] Provider LAB URINE ORDERABLES Aida l Result Performing Organization Address [facility] de Phone Number TXP NO LAB [...] NO LAB FOUND SCRIBED eGFR in NonAfrican [place] 0 0 TXP NO LAB FOUND SCRIBED Urea Nitrogen (BUN) 24(A) 7 - 18 mg/dl TXP NO LAB FOUND SCRIBED eGFR in 56 >60 TXP NO LAB FOUND Blood 01/25/2024 Historical Provider LAB BLOOD ORDERABLES Edit ed Result - Final [place] NO LAB FOUND * (ABNORMAL) TSH reflex to free T4 (10/12/2022 10:23 AM CDT) TSH 7.31(H) 0.30 - 4.20 mcIUnit/mL [facility] Blood 10/12/2022 10:2 3 AM CDT 10/12/2022 10:40 AM CDT Milli GREEN LAB BLOOD ORDERABLES Aida l Result [facility] Department [place] [address] * PSA screen (09/24/2022 4:48 PM CDT) PSA-Total 0.54 <=5.40 ng/mL [facility] Comment: [...] Victoria MD LAB BLOOD ORDERABLES Final Result [facility] Department [place] [address] * Hepatitis C antibody (05/30/2019 1:17 PM CDT) Hep C Ab Nonreactive Nonreactive [facility] Blood specimen (specimen) 05/30/2019 1:17 PM CDT 05/30/2019 1:38 PM CDT Abi Fitzpatrick NP LAB MICROBIOLOGY - GENERAL ORDERABLES Edited Result - Final Performing Organization Address [facility] Co de Phone Number [facility] Department [place] [address] from Last 3 Months or Most Recently Relevant to Health Maintenance [facility] AETNA [facility] WORKERS COMPENSATION GENERIC COMPENSATION Advance Directives For more information, please contact: [phone] Documents on File Type Date Recorded Patient Food Runner Expl anation ADVANCE DIRECTIVE 04/07/2019 2:18 PM [...] 8:43 AM 05/15/2021 12:44 PM Care Teams Topper Press Operator Automatic Relationship Specialty Start Date End Date Rigo Alvarenga MD PCP - General 03/31/17 Rand Collins, RN [address] [facility] [address] [place] [address] Purification Supervisor 05/31/19 Felipe Foss MD [address] [place] [address] Medical Oncologist/Special Collections Librarian Hematology and Oncology 01/04/23
--- OUTSIDE RECORDS SUMMARY | 2024-04-24 11:11 | XMS_ITS | Encounter Summary ---
Author Organization [facility] Address [address] [place] [address] Phone Care Team Providers Care Aids Counselor Name Role Phone Rigo Alvarenga MD Primary Care Provider [phone] Rand Collins RN Unavailable [phone] Felipe Foss MD Unavailable [phone] Encounter Details Date Type Department Care Team [...] often do you attend chur ch or jainism services? 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
--- OUTSIDE RECORDS SUMMARY | 2024-04-24 11:11 | XMS_ITS | Encounter Summary ---
Author Organization [facility] Address [address] [place] [address] Phone Care Team Providers Care Clinical Practitioner Name Role Phone Rigo Alvarenga MD Primary Care Provider [phone] Rand Collins RN Unavailable [phone] Felipe Foss MD Unavailable [phone] Encounter Details Date Type Department Care Team [...] often do you attend chur ch or judaism services? 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
--- OUTSIDE RECORDS SUMMARY | 2024-04-24 11:11 | XMS_ITS ---
Author Organization [facility] Address [address] [place], [place] [address] Care Team Providers Care Rn Internship Name Role Phone MELA VENTURA Unavailable [phone] Rigo Alvarenga Unavailable Unavailable ALVIN JUNIOR Unavailable [phone] Allergies Allergen (clinical drug ingredient) Drug/Non Drug [...] 09/09/2023 Encounters Encounter Location Date Provider Diagnosis [address] [place], [place] [id number] 09/09/2023 ALVIN JUNIOR Unspecified atherosclerosis of [place] mountain arteries of extremities, bilateral legs I70.203 ; Tinea pedis B35.3 ; Tinea unguium B35.1 ; Pain in right toe(s) M79.674 and Pain in left toe(s) M79.675 Assessments Encounter Date Diagnosis (ICD Code) Assessment Notes Treatment Notes Treatment Clinical Notes Section Notes 09/09/2023 Unspecified atherosclerosis of [place] arteries of extremities, bilateral legs (ICD-10 - [...] Treatment Notes Assessment Notes Unspecified atherosclerosis of [place] arteries of extremities, bilateral legs Patient educated [...] Notes * ISAIAH SARGENTMARCIADOB:1960 (63 yo M)Acc No.[id number]:09/09/2023 Progress Notes Patient: HUSSAIN EDWARDS Provider: Onel JUNIOR :1960 A ge:63 Y S ex:Male Date:09/09/2023 Address:[address] [place], [place] [id number] Subjective: * Chief Complaints: * 1 . [...] Patient denies c hest pain, history of DE, irregular heartbeat. M usculoskeletal: Patient denies a [...] (Primary) 2 . U nspecified atherosclerosis of [place] arteries of extremities, bilateral legs - I70.203 3 . T inea unguium - B35.1 4 . P ain in right toe(s) - M79.674 5 . P ain in left toe(s) - M79.675 Plan: * Treatment: 2. U nspecified atherosclerosis of [place] arteries of extremities, bilateral legs Notes: Patient [...] Months * Billing Information: * Visit Code: 84190 Office Visit, New Pt., Level 3. * Procedure Codes: * Sign off status: Completed true * Provider: Onel JUNIOR Date: 0 09/09/2023 Generated for Bibiana Moralez on: 0 04/24/2024 11:11 AM CDT History and Physical Notes * [...]
--- OUTSIDE RECORDS SUMMARY | 2024-04-24 11:11 | XMS_ITS | Encounter Summary ---
Author Organization [facility] Healthcare Address [address] [place] [address] Care Team Providers Care Hide Dyer Name Role Phone Rigo Alvarenga MD Primary Care Provider [phone] Rand Collins RN Unavailable [phone] Felipe Foss MD Unavailable [phone] Encounter Details Date Type Department Care Team (Late st Contact Info) Description 12/04/2022 Telephone [facility] [address] [facility] [address] [place] [address] Rigo Alvarenga MD [address] [place] [address] Social History Tobacco Use Types [...] How often do you attend chur or temple services? More than 4 times per year [...] in a intermediate (including now)? No 09/29/2022 Sex and Gender Information Value Date Recorded Sex Assigned at Not on file Legal Sex Male 12:49 PM PANEL SEWER Gender Identity Not on file Sexual Orientation Not on file documented as of this encounter Plan of Treatment Not on file documented as of this encounter Visit Diagnoses Not on filedocumented in this encounter Care Teams Hide Dyer Relationship Specialty Start Date End Date Rigo Alvarenga MD PCP - General 03/31/17 Rand Collins, FLORES [address] [facility] [address] [place] [address] Special Agent In Charge 05/31/19 Felipe Foss MD [address] [place] [address] Medical Oncologist/Design Project Manager Hematology and Oncology 01/04/23 documented as of this encounter
--- OUTSIDE RECORDS SUMMARY | 2024-04-24 11:11 | XMS_ITS ---
Author Organization [facility] Address [address] [place] [address] Care Team Providers Care Computer Systems Information Director Name Role Phone Rigo Alvarenga MD Primary Care Provider [phone] Rand Collins RN Unavailable [phone] Felipe Foss MD Unavailable [phone] Active Problems Patient Care Coordination No te Formatting of this note migh t be different from the original. Per Dr. Limon, [place] goal 2-4 d/t receiving treatment for MM on Envarsus 1mg Discharge Preferences: Lab: [facility] , [phone] standing orders q Monthly, FK,UPE, q3 HgbA1C Exp. 03/28/25 Home Health: [facility] /[phone] Local Pharmacy: [facility] in [place] [facility]: [facility] Problem Noted Date Diagnosed [...] cardiology follow up. Discussed plan with attending spray crew. HEATHER on CPAP 09/25/2022 Assessment & Plan [...] further with Dr. Yu. Will proceed with [facility] to better assess volume status and [...] (04/30/2022): Added automatically from request for surgery [id number] Encounter for preadmission testing 04/24/2022 LAYO (acute [...] gluconate, insulin, and kayaxelate -upon arrival to [facility] ED, K 6.0, WBK 5.6 no additional therapies given -Repeat K and WBK on arrival, manage as appropriate -likely transfer to floor later this morning -renal transplant consult in AM -hold bactrim for time being as could be contributing to hyperkalemia, resume pending transplant nephrology recs ([facility] medication) BPH (benign prostatic hyperplasia) 06/20/2019 Assessment & Plan (06/20/2019 4:45 AM CDT): Continue home flomax Kidney transplant recipient 05/31/2019 Assessment & Plan (09/21/2022 10:01 AM CDT): -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 use of immunosuppressants and steroids complicates diabetes [...] (05/30/2019): Added automatically from request for surgery [id number] Pruritus 08/10/2018 ESRD (end stage renal disease) [...] Systemic lupus erythematosus (SLE) in adult 10/17 Current Treatment and Therapy Plans Bortezomib Every Other Week 28 Day Cycles - Myeloma* Plan Start Date:08/31/2023 Plan Provider:Felipe Foss MD Linked Problems Multiple myeloma in [facility]) Treatment Medications Current Day (Day 1 , Cycle 4 - Planned for 12/01/2023) Next Day (Day 15, Cycle 4 - Planned for 12/15/2023) bortezomib (VELCADE) bortezomib (VELCADE ) subcutaneous syringe 2.625 mg bortezomib (VELCADE) subcutaneous syringe 2.625 mg Zoledronic Acid (ZOMETA) Infusion* Plan Start Date:02/24/2023 Plan Provider:Felipe Foss MD Linked Problems Multiple myeloma in [facility]) Treatment Medications No medications scheduled. Past Treatment and Therapy Plans Oncology Chemotherapy Treatment Plan Name Start Date Discontinue Date Treatment Medications Discontinue Reason Plan Provider Cycles Bortezomib / Lenalidomide / Dexamethasone PO 21 Day Cycles - Myeloma 3 08/31/2023 bortezomib (VELCADE) Therapy Complete Felipe Foss MD 4 of 4 cycles started Lifetime Dose Tracking * Chemical Lifetime Dose [...] (11/18/2017): Added automatically from request for surgery [id number] Peritoneal dialysis catheter tunnel infection 10/28/19 18 09/12/2018 Overview (10/27/2017): Added automatically from request for surgery [id number] End-stage renal disease on hemodialysis 10/07/2017 05/10/2018 Overview (10/07/2017): Added automatically from request for surgery [id number] Stage 4 chronic kidney disease 01/16/2015 05/10/2018 Encounter for monitoring tacrolimus therapy 11/17/2010 09/12/2018
--- OUTSIDE RECORDS SUMMARY | 2024-04-24 11:11 | XMS_ITS | Encounter Summary ---
Author Organization [facility] Healthcare Address [address] [place] [address] Care Team Providers Care Trackman Name Role Phone Rigo Alvarenga MD Primary Care Provider [phone] Rand Collins RN Unavailable [phone] Felipe Foss MD Unavailable [phone] Encounter Details Date Type Department Care Team (Late st Contact Info) Description 10/16/2021 Telephone [facility] Primary Care Medicine Clinic [address] [facility] [address] [place] [address] Rigo Alvarenga MD [address] [place] [address] Social History Tobacco Use Types [...] often do you attend chur ch or mandaen services? 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
[2024-04-27 10:29] LABS: Tacrolimus Prograf 2.2 mcg/L
== END 2024-04-24 09:42 | disposition home or self-care (01) ==
LOC: CHSLAB 09:47
PROVIDERS: PCP Internal Medicine
DX: Z94.0 Kidney transplant status (principal); E78.5 Hyperlipidemia, unspecified; N39.0 Urinary tract infection, site not specified; Z79.899 Other long term (current) drug therapy
CPT/HCPCS: 36415; 80069; 80197; 82570; 84156; 85025

== ENCOUNTER 2024-04-27 13:13 | Outpatient (CLI) | payer MEDICARE, SELFPAY ==
[2024-04-27 13:34] LABS: Kit Draw Collected
--- OUTSIDE RECORDS SUMMARY | 2024-04-27 14:50 | XMS_ITS | Encounter Summary ---
Author Organization [facility] Healthcare Address [address] [place] [address] Care Team Providers Care Multiskill Operator Name Role Phone Rigo Alvarenga MD Primary Care Provider [phone] Rand Collins RN Unavailable [phone] Felipe Foss MD Unavailable [phone] Encounter Details Date Type Department Care Team (Late st Contact Info) Description 12/04/2022 Telephone [facility] Primary Care Medicine Clinic [address] [facility] [address] [place] [address] Rigo Alvarenga MD [address] [place] [address] Social History Tobacco Use Types [...] How often do you attend chur or quaker services? More than 4 times per year [...] place to sleep or slept in a residential (including now)? 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 Gender Identity Not on file Sexual Orientation Not on file documented as of this encounter Plan of Treatment Not on file documented as of this encounter Visit Diagnoses Not on filedocumented in this encounter Care Teams Multiskill Operator Relationship Specialty Start Date End Date Rigo Alvarenga MD PCP - General 03/31/17 Rand Collins, FLORES [address] [facility] [address] [place] [address] Junior Financial Analyst 05/31/19 Felipe Foss MD [address] [place] [address] Medical Oncologist/Manager Of Tires Sales Hematology and Oncology 01/04/23 documented as of this encounter
--- OUTSIDE RECORDS SUMMARY | 2024-04-27 14:50 | XMS_ITS | Encounter Summary ---
Author Organization [facility] Address [address] [place] [address] Phone Care Team Providers Care Special Deputy Sheriff Name Role Phone Rigo Alvarenga MD Primary Care Provider Ag Malcolm MD Primary Care Provider [phone] Rigo Alvarenga MD Primary Care Provider Ag Malcolm MD Primary Care Provider Rigo Alvarenga MD Primary Care Provider Ag Malcolm MD Primary Care Provider Ag Malcolm MD Primary Care Provider Rigo Alvarenga MD Primary Care Provider Malgorzata Edwards RN Unavailable [phone] Marguerite Carson Unavailable Unavail able Tamy Arcos RN Unavailable [phone] Chase Durbin MD Unavailable Pavithra Tavarez RN Unavailable Rand Collins RN Unavailable [phone] Felipe Foss MD Unavailable [phone] Encounter Details Date Type Department Care Team (Latest Contact Info) Description 12/04/2016 Orders Only [facility] CONVERSION Scanning, Provider Social History Tobacco Use Types Packs/Day Years Used Date Smoking Tobacco: Never Sex and Gender Information Value Date Recorded Sex Assigned at Not on file 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 Gender Identity Not on file Sexual Orientation [...] documented as of this encounter Care Teams Special Deputy Sheriff Relationship Specialty Start Date End Date Rigo Alvarenga MD PCP - General 12/02/16 12/15/16 Ag Malcolm MD [address] [place] [address] PCP - General 12/16/16 12/18/16 Rigo Alvarenga MD PCP - General 12/19/16 02/25/17 Ag Malcolm MD [address] [place] [address] PCP - General 02/26/17 03/04/17 Rigo Alvarenga MD PCP - General 03/05/17 03/24/17 Ag Malcolm MD [address] [place] [address] PCP - General 03/30/17 03/30/17 Ag Malcolm MD [address] [place] [address] PCP - General 03/25/17 03/29/17 Rigo Alvarenga MD PCP - General 03/31/17 Malgorzata Edwards, RN [address] [address] Insulation Mechanic 07/13/17 Marguerite Moise Insulation Mechanic 07/23/17 08/10/17 Tamy Arcos RN [address] [address] Insulation Mechanic 08/11/17 Chase Durbin MD [address] [facility] [address] [place] [address] Rotary Drill Operator Nephrology 03/23/19 11/23/19 Pavithra Tavarez, FLORES [address] [facility] [address] [place] [address] Insulation Mechanic 03/30/19 0 Rand Collins RN [address] [facility] [address] [place] [address] Insulation Mechanic 05/31/19 Felipe Foss MD [address] [place] [address] Medical Oncologist/Security Shift Manager Hematology and Oncology 01/04/23 documented as of this encounter
--- OUTSIDE RECORDS SUMMARY | 2024-04-27 14:50 | XMS_ITS | Clinical Summary ---
Author Organization [facility] Address [address] [place] [address] Care Team Providers Care Child Care Nurse Name Role Phone Rigo Alvarenga MD Primary Care Provider [phone] Allergies No known active allergies Medications tacrolimus [...] complete this topic Insurance MEDICARE MEDICARE [place] [place] [id number] Care Teams Child Care Nurse Relationship Specialty Start Date End Date Rigo Alvarenga MD [address] [place] [address] PCP - General INTERNAL MEDICINE 06/19/19
--- OUTSIDE RECORDS SUMMARY | 2024-04-27 14:50 | XMS_ITS ---
Author Organization [facility] Address [address] [place], [place] [id number] Care Team Providers Care Aerographer Name Role Phone MELA VENTURA Unavailable [phone] Rigo Alvarenga Unavailable Unavailable ALVIN JUNIOR Unavailable [phone] Allergies Allergen (clinical drug ingredient) Drug/Non Drug [...] Active Encounters Encounter Location Date Provider Diagnosis [address] [id number] 10/07/2023 ALVIN DAVYDOV Unspecified atherosclerosis of [place] arteries of extremities, bilateral legs I70.203 and Tinea pedis B35.3 Assessments Encounter Date Diagnosis (ICD Code) Assessment Notes Treatment Notes Treatment Clinical Notes Section Notes 10/07/2023 Unspecified atherosclerosis of [place] arteries of extremities, bilateral legs (ICD-10 - [...] Treatment Notes Assessment Notes Unspecified atherosclerosis of [place] arteries of extremities, bilateral legs Patient educated [...] Notes * HUSSAIN SARGENTDOB:1960 (63 yo M)Acc No.[id number]:10/07/2023 Patient: Onel HUSSAIN [place] Provider: Onel JUNIOR :1960 A ge:63 Y S ex:Male Date:10/07/2023 Address:[id number] Subjective: * Chief Complaints: * 1 . [...] Patient denies c hest pain, history of TX, irregular heartbeat. M usculoskeletal: Patient denies a [...] (Primary) 2 . U nspecified atherosclerosis of [place] arteries of extremities, bilateral legs - I70.203 Plan: * Treatment: 2. U nspecified atherosclerosis of [place] arteries of extremities, bilateral legs Notes: Patient educated on risks and aggravating factors of PVD, including conservative treatment options such as a diet and exercise regimen to aid in slowing progression of vascular disease ? * Follow Up: 3 Months * Billing Information: * Visit Code: 20833 Office Visit, Est Pt., Level 3. * Procedure Codes: * Sign off status: Completed true * Provider: Onel JUNIOR Date: 0 10/07/2023 Generated for Bibiana felder/Ashvin on: 0 04/27/2024 02:49 PM CDT History and Physical Notes * HPI [...]
--- OUTSIDE RECORDS SUMMARY | 2024-04-27 14:50 | XMS_ITS ---
Author Organization [facility] Address [address] [place] [address] Care Team Providers Care Pasteurizing Supervisor Name Role Phone Rigo Alvarenga MD Primary Care Provider [phone] Rand Collins RN Unavailable [phone] Felipe Foss MD Unavailable [phone] Dialysis Access Sites Type Status Location Placement Date Removal Da te AV graft Active Left Upper Arm - Anterior 11/01/2017 Peritoneal Dialysis Catheter Inactive 12/17/2015 12/03/2017 Procedures Procedure Name Priority Date/Time Associated Diagnosis Comments SCAN - LABS 04/24/2024 4:48 PM CDT TACROLIMUS LEVEL, TROUGH Routine 04/24/2024 RENAL FUNCTION PANEL Routine 04/24/2024 CBC WITH AUTO DIFFERENTIAL Routine 04/24/2024 PROTEIN / CREATININE RATIO, URINE, RANDOM Routine 04/24/2024 CBC WITH AUTO DIFFERENTIAL Routine 03/27/2024 7:51 AM SLEEVE TURNER PROTEIN / CREATININE RATIO, URINE, RANDOM Routine 03/27/2024 7:51 AM SLEEVE TURNER RENAL FUNCTION PANEL Routine 03/27/2024 TACROLIMUS LEVEL, TROUGH Routine 03/27/2024 ALBUMIN CREATININE RATIO, URINE Routine 02/25/2024 HEMOGLOBIN A1C Routine 02/25/2024 HEPATIC FUNCTION PANEL Routine 02/25/2024 LIPID PANEL Routine 02/25/2024 RENAL FUNCTION PANEL Routine 02/25/2024 TACROLIMUS LEVEL, TROUGH Routine 02/25/2024 CBC WITH AUTO DIFFERENTIAL Routine 02/25/2024 THYROID FUNCTION CASCADE Routine 10/12/2022 10:23 AM [...] 22 Active blood-glucose meter (OneTouch Verio Meter) miscIndications :Type 2 diabetes mellitus with other specified complication, unspecified whether bed bug exterminator insulin use (HCC) Use to check blood sugar 4 times per day 1 each 06/12/19 22 Active cyanocobalamin, vitamin B-12, (VITAMIN B-12 ORAL)Indication s:Prevention of Vitamin B12 Deficiency Take 1,000 mcg by mouth every morning Active atorvastatin (LIPITOR) 20 mg tablet TAKE 1 TABLET BY MOUTH EVERY DAY AT NIGHT 90 tablet 3 08/13/19 23 Active flash glucose scanning reader miscIndications :Type 2 diabetes mellitus with other specified complication, unspecified whether prison insulin use (HCC) Use to read missy 3 sensor 1 each 01/01/20 23 Active cholecalciferol (VITAMIN D-3) 2000 unit tabletIndicatio ns:Prevention of Vitamin D Deficiency Take 0.5 tablets (1,000 Units total) by mouth every morning Active FreeStyle Missy 3 [place] misc as directed Sugars have been way [...] DAY 90 tablet 3 04/19/19 24 Active glucagon (Gvoke HypoPen 2-Pack) 1 mg/0.2 mL auto-injectorIn dications:Type 2 diabetes mellitus with other specified complication, unspecified whether prison insulin use (HCC) Inject 1 mg under the skin as needed (as needed for severe hypoglycemia ) 0.4 mL 6 06/07/19 24 Active OneTouch Verio test strips stripIndication s:Type 2 diabetes mellitus with other specified complication, unspecified whether prison insulin use (HCC) CHECK BLOOD SUGAR 3 [...] mellitus with other specified complication, unspecified whether bed bug exterminator insulin use (HCC) USE TO CHECK BLOOD [...] 24 025 Active FreeStyle Missy 3 Sensor deviceIndicatio ns:Type 2 diabetes mellitus with other specified complication, unspecified whether bed bug exterminator insulin use (HCC) Use to check blood [...] mellitus with other specified complication, unspecified whether prison insulin use (HCC) TAKE 1 TABLET BY MOUTH EVERY DAY 90 tablet 3 02/14/20 24 Active tirzepatide (Mounjaro) 10 mg/0.5 mL pen injector injectionIndica tions:Type 2 diabetes mellitus with other specified complication, unspecified whether prison insulin use (HCC) Inject 0.5 mL (10 mg total) under the skin every 7 days 2 mL 03/15/19 25 Active bumetanide (BUMEX) 1 mg tablet Take 0.5 tablets (0.5 mg total) by mouth daily 45 tablet 2 04/05/19 25 Active sodium phosphate - potassium phosphate (K-PHOS NEUTRAL) 250 mg tablet Take 1 tablet (250 mg total) by mouth 2 (two) times a day before breakfast and lunch 180 tablet 2 04/05/19 25 Active amLODIPine (NORVASC) 10 mg tablet Take 1 tablet (10 mg total) by mouth daily 30 tablet 11 04/26/19 25 026 Active bumetanide (BUMEX) 1 mg tablet Take 1 tablet (1 mg total) by mouth 2 (two) times a day 180 tablet 3 05/18/19 24 025 Discontinued(Re order) amLODIPine (NORVASC) 5 mg tablet Take 1 tablet (5 mg total) by mouth daily 30 tablet 04/05/19 25 025 Discontinued Active Problems Patient Care Coordination No te Formatting of this note migh t be different from the original. Per Dr. 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 , [phone] standing orders q Monthly, FK,UPE, q3 HgbA1C Exp. 03/28/25 Home Health: [facility] /[phone] Local Pharmacy: [facility] in [place] [facility]: [facility] Problem Noted Date Diagnosed [...] cardiology follow up. Discussed plan with attending tribal delegate. HEATHER on CPAP 09/25/2022 Assessment & Plan [...] able WHO group 2 pulmonary arterial hypertension 0 08/2022 Assessment & Plan (10/30/2022 10:26 AM [...] further with Dr. Yu. Will proceed with [facility] to better assess volume status [...] (04/30/2022): Added automatically from request for surgery [id number] Encounter for preadmission testing 04/24/2022 LAYO (acute [...] gluconate, insulin, and kayaxelate -upon arrival to [facility] ED, K 6.0, WBK 5.6 no additional therapies given -Repeat K and WBK on arrival, manage as appropriate -likely transfer to floor later this morning -renal transplant consult in AM -hold bactrim for time being as could be contributing to hyperkalemia, resume pending transplant nephrology recs ([facility]) BPH (benign prostatic hyperplasia) 06/20/2019 Assessment & Plan (06/20/2019 4:45 AM CDT): Continue home flomax Kidney transplant recipient 05/31/2019 Assessment & Plan (09/21/2022 10:01 AM CDT): -ferry terminal agent use of immunosuppressants and steroids complicates diabetes management. Assessment & Plan (05/04/2022 8:32 AM CDT): -ferry terminal agent use of immunosuppressants and steroids complicates diabetes [...] (05/30/2019): Added automatically from request for surgery [id number] Pruritus 08/10/2018 ESRD (end stage renal disease) [...] often do you attend chur ch or jew services? More than 4 times per year 09/29/2022 Do you belong to any clubs o r organizations such as baptist groups, unions, fraternal or athletic groups, or [...] place to sleep or slept in a correction (including now)? No 09/29/2022 Personal Safety Answer Date Recorded Have you ever been in or are you currently in a harmful physical or emotional relationship or is someone making you feel afraid or unsafe? Denies 05/03/2023 Sex and Gender Information Value Date Recorded Sex Assigned at Not on file Legal Sex Male 12:49 PM SLEEVE TURNER Gender Identity Not on file Sexual Orientation Not on file Last Filed Vital Signs Vital Sign Reading Time Taken Comments Blood Pressure 145/78 03/15/2024 11:09 AM SLEEVE TURNER Pulse 66 03/15/2024 11:09 AM SLEEVE TURNER Temperature 36.8 C (98.2 F) 03/15/2024 11:09 AM SLEEVE TURNER Respiratory Rate 18 12/15/2023 11:24 AM CDT Oxygen Saturation 98% 01/06/2024 12:56 PM SLEEVE TURNER Inhaled Oxygen Concentration - - Weight 83.6 kg (184 lb 3.2 oz) 03/15/2024 11:09 AM SLEEVE TURNER Height 170.2 cm (5' 7 ) 03/15/2024 11:09 AM SLEEVE TURNER Body Mass Index 28.85 03/15/2024 11:09 AM SLEEVE TURNER Results * SCAN - LABS (04/24/2024 4:48 PM CDT) Provider Scanning Final Result * (ABNORMAL) Tacrolimus level trough (04/24/2024) SCRIBED Tacrolimus, trough 2.2(A) 5 - 20 TXP NO LAB FOUND Blood 04/24/2024 [facility] Provider LAB BLOOD ORDERABLES Edit ed Result - Final TXP NO LAB FOUND * (ABNORMAL) CBC with auto differential (04/24/2024) SCRIBED WBC 7.6 4.8 - 10.8 k/[place] TXP NO LAB FOUND SCRIBED Hemoglobin 17.3 14 - 18 g/dL TXP NO LAB FOUND SCRIBED Hematocrit 51.2 40 - 54 % TXP NO LAB FOUND SCRIBED Platelets 156 150 - 420 k/cumm TXP NO LAB FOUND SCRIBED Lymphocytes Abs 1.07(A) 1.10 - 4.50 k/cumm TXP NO LAB FOUND Blood 04/24/2024 Result [facility] Provider LAB BLOOD ORDERABLES Edit ed Result - Final Performing Organization Address [facility] de Phone Number TXP NO LAB FOUND * (ABNORMAL) Protein / creatinine ratio, urine, random (04/24/2024) SCRIBED Protein, Urine 90.5(A) 0 - 11.9 TXP NO LAB FOUND SCRIBED Creatinine, Urine 88.04 40 - 278 TXP NO LAB FOUND SCRIBED Protein/Creat Ratio 1.03(A) 0 - 0.20 TXP NO LAB FOUND Urine 04/24/2024 Result [facility] Provider LAB URINE ORDERABLES Aida l Result Performing Organization Address [facility] de Phone Number TXP NO LAB FOUND * (ABNORMAL) Renal function panel (04/24/2024) SCRIBED Calcium 10.1 8.5 - 10.1 mg/dl TXP NO LAB FOUND SCRIBED Phosphorus 2.3(A) 2.6 - 4.7 mg/dl TXP NO LAB FOUND SCRIBED Albumin 4.4 3.4 - 5.0 g/dl TXP NO LAB FOUND SCRIBED Glucose 109(A) 70 - 99 mg/dl TXP NO LAB FOUND SCRIBED Creatinine 1.41(A) 0.70 - 1.30 mg/dl TXP NO LAB FOUND SCRIBED Sodium 143 136 - 145 mmol/L TXP NO LAB FOUND SCRIBED Potassium 3.7 3.5 - 5.1 mmol/L TXP NO LAB FOUND SCRIBED Chloride 104 98 - 108 mmol/L TXP NO LAB FOUND SCRIBED Carbon Dioxide 30 21 - 32 mmol/L TXP NO LAB FOUND SCRIBED eGFR in 51 >=60 TXP NO LAB FOUND SCRIBED Urea Nitrogen (BUN) 25(A) 7 - 18 mg/dl TXP NO LAB FOUND Blood 04/24/2024 Result [facility] Provider LAB BLOOD ORDERABLES Aida l Result Performing Organization Address [facility] de Phone Number TXP NO LAB FOUND * (ABNORMAL) CBC with auto differential (03/27/2024 7:51 AM SLEEVE TURNER) SCRIBED WBC 6.1 4.8 - 10.8 k/cumm [facility] SCRIB Hemoglobin 16.2 14 - 18 g/dL [facility] SCRIB Hematocrit 48.2 40 - 54 % [facility] SCRIB Platelets 116(A) 150 - 420 k/cumm [facility] SCRIBED Lymphocytes Abs 1.03(A) 1.1 - 4.5 k/[facility] Blood 03/27/2024 7:51 AM SLEEVE TURNER Historical Provider LAB BLOOD ORDERABLES Edit ed Result - Final Performing Organization Address [facility] Co de Phone Number [address] [phone] * (ABNORMAL) Protein / creatinine ratio, urine, random (03/27/2024 7:51 AM SLEEVE TURNER) [facility] Signature SCRIBED Protein, Urine 45.9(A) 0 - 11.9 MG/DL [facility] SCRIB Creatinine, Urine 76.25 40 - 286 MG/DL [facility] SCRIB Protein/Creat Ratio 0.60(A) 0 - 0.2 MG/MG [facility] Urine 03/27/2024 7:51 AM SLEEVE TURNER Historical Provider LAB URINE ORDERABLES Aida l Result Performing Organization Address [facility] Co de Phone Number [address] [phone] * (ABNORMAL) Tacrolimus level trough (03/27/2024) SCRIBED Tacrolimus, trough 3.0(A) 5 - 20 TXP NO LAB FOUND Blood 03/27/2024 Result [facility] Historical Provider LAB BLOOD ORDERABLES Aida [...] NO LAB FOUND SCRIBED eGFR in NonAfrican Japanese 0 0 TXP NO LAB FOUND SCRIBED Urea Nitrogen (BUN) 34(A) 7 - 18 mg/dl TXP NO LAB FOUND SCRIBED eGFR in 47 >=60 TXP NO LAB FOUND Blood 03/27/2024 Result [facility] Historical Provider LAB BLOOD ORDERABLES Edit ed Result - Final TXP NO LAB FOUND * (ABNORMAL) Tacrolimus level trough (02/25/2024) SCRIBED Tacrolimus, trough 2.8(A) 5 - 20 TXP NO LAB FOUND Blood 02/25/2024 us Historical Provider LAB BLOOD ORDERABLES Aida l Result Performing Organization Address [facility] de Phone Number TXP NO LAB [...] TXP NO LAB FOUND Blood 02/25/2024 Result [facility] Provider LAB BLOOD ORDERABLES Edit ed Result - Final Performing Organization Address [facility] de Phone Number TXP NO LAB FOUND * (ABNORMAL) Albumin Creatinine Ratio, Urine (02/25/2024) SCRIBED Creatinine, Urine 102.95 40 - 278 TXP NO LAB FOUND SCRIBED Microalbumin >400.00 n/a TXP NO LAB FOUND SCRIBED Microalb/Creat Ratio 388.5(A) 0 - 30 TXP NO LAB FOUND Urine 02/25/2024 Result [facility] Provider LAB URINE ORDERABLES Edit ed Result - Final Performing Organization Address [facility] de Phone Number TXP NO LAB FOUND * Hemoglobin A1c (02/25/2024) SCRIBED Hemoglobin A1c 7.7 <57 % TXP NO LAB FOUND Blood 02/25/2024 Result [facility] Provider LAB BLOOD ORDERABLES Aida l Result Performing Organization Address [facility] de Phone Number TXP NO LAB [...] NO LAB FOUND SCRIBED eGFR in NonAfrican Japanese 49 >60 TXP NO LAB FOUND SCRIBED [...] ORDERABLES Aida l Result Performing Organization Address [facility] Co de Phone Number TXP NO LAB FOUND * (ABNORMAL) TSH reflex to free T4 (10/12/2022 10:23 AM CDT) Pathologist [facility] TSH 7.31(H) 0.30 - 4.20 mcIUnit/mL [facility] Blood 10/12/2022 10:2 3 AM CDT 10/12/2022 10:40 AM CDT Milli GREEN LAB BLOOD ORDERABLES Aida l Result Performing Organization Address [facility] Co de Phone Number [facility] [place] [address] * PSA screen (09/24/2022 4:48 PM CDT) Pathologist [facility] PSA-Total 0.54 <=5.40 ng/mL [facility] Comment: Interpretive Data AGE SEX REFERENCE [...] BLOOD ORDERABLES Final Result [facility] [place] [address] * Hepatitis C antibody (05/30/2019 1:17 PM CDT) Hep C Ab Nonreactive Nonreactive [facility] Blood specimen (specimen) 05/30/2019 1:17 PM CDT 05/30/2019 1:38 PM CDT us Abi Fitzpatrick NP LAB MICROBIOLOGY - GENERAL ORDERABLES Edited Result - Final Performing Organization Address [facility]/ZIP Co de Phone Number [facility] [place] [address] from Last 3 Months or Most Recently Relevant to Health Maintenance
--- OUTSIDE RECORDS SUMMARY | 2024-04-27 14:50 | XMS_ITS | Encounter Summary ---
Author Organization [facility] - [facility] Address [facility] [place] [address] Care Team Providers Care Veneer Taping Machine Operator Name Role Phone Rigo Alvarenga MD Primary Care Provider [phone] Encounter Details Date Type Department Care Team (Late st Contact Info) Description 07/23/2018 Abstract [facility] CONVERSION [address] [place] [address] , Generic ConversionMD Social History Tobacco Use [...] on filedocumented in this encounter Care Teams Veneer Taping Machine Operator Relationship Specialty Start Date End Date Rigo Alvarenga MD [address] [place] [id number] PCP - General INTERNAL MEDICINE 06/19/19 documented as of this encounter
--- OUTSIDE RECORDS SUMMARY | 2024-04-27 14:50 | XMS_ITS | Patient Health Record ---
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
--- OUTSIDE RECORDS SUMMARY | 2024-04-27 14:50 | XMS_ITS | Encounter Summary ---
Author Organization [facility] Address [address] [place] [address] Phone Care Team Providers Care Apartment Maintenance Worker Name Role Phone Rigo Alvarenga MD Primary Care Provider [phone] Malgorzata Edwards RN Unavailable [phone] Marguerite Carson Unavailable Unavail able Tamy Arcos RN Unavailable [phone] Chase Durbin MD Unavailable [phone] Pavithra Tavarez RN Unavailable Rand Collins RN Unavailable [phone] Felipe Foss MD Unavailable [phone] Encounter Details Date Type Department Care Team (Latest Contact Info) Description 04/01/2017 Orders Only [facility] CONVERSION Scanning, Provider Social History Tobacco Use Types Packs/Day Years Used Date Smoking Tobacco: Never Sex and Gender Information Value Date Recorded Sex Assigned at Not on file Legal Sex Male 12:49 PM CASH APPLICATION REPRESENTATIVE Gender Identity Not on file Sexual Orientation Not on file documented as of this encounter Plan of Treatment Not on file documented as of this encounter Procedures Procedure Name Priority Date/Time Associated Diagnosis Comments VASCULAR LABORATORY REPORT 04/01/2017 11:02 PM CASH APPLICATION REPRESENTATIVE documented in this encounter Results * VASCULAR LABORATORY REPORT (04/01/2017 11:02 PM CASH APPLICATION REPRESENTATIVE) Anatomical Region Laterality Modality Ultrasound us Provider [...] documented as of this encounter Care Teams Apartment Maintenance Worker Relationship Specialty Start Date End Date Rigo Alvarenga MD PCP - General 03/31/17 Malgorzata Edwards RN [address] [address] Compensation Director 07/13/17 8 Marguerite Carson Compensation Director 07/23/17 08/10/17 Tamy Arcos RN [address] [address] Compensation Director 08/11/17 Chase Durbin MD [address] [facility] [address] [place] [address] Slat Pickler Nephrology 03/23/19 11/23/19 Pavithra Tavarez RN [address] [address] Compensation Director 03/30/19 0 Rand Collins RN [address] [address] Compensation Director 05/31/19 Felipe Foss MD [address] [place] [address] Medical Oncologist/Pizza Hut Assistant Hematology and Oncology 01/04/23 documented as of this encounter
--- OUTSIDE RECORDS SUMMARY | 2024-04-27 14:50 | XMS_ITS | Clinical Summary ---
Author Organization [facility] Address [address] [place] [address] Care Team Providers Care Tree Shear Operator Name Role Phone Rigo Alvarenga MD Primary Care Provider [phone] Rand Collins RN Unavailable [phone] Felipe Foss MD Unavailable [phone] Allergies Active Allergy Reactions Criticality Noted Date Comments Codeine Cough Low 11/20/2015 Duloxetine Diarrhea,Hallucinations High 10/26/2012 Prednisone Rash,Other (See comments) Medium 05/16/2010 Acne-like pimples, all over At high doses. 06/20/19: Approved to give Prednisone per Dr. Elinro Villaseñor (Pato Garcia, RonaldD) Medications sour alvarez extract (TART ALVAREZ EXTRACT ORAL)Indication s:Gout,gout Take 1,200 mg by mouth every morning Active blood glucose strip-disp meter kit Use as directed. 1 kit 05/17/19 22 Active blood-glucose meter (OneTouch Verio Meter) miscIndications :Type 2 diabetes mellitus with other specified complication, unspecified whether prison insulin use (HCC) Use to check blood [...] with other specified complication, unspecified whether manager of drilling insulin use (HCC) Use to read missy 3 sensor 1 each 01/01/20 23 Active cholecalciferol (VITAMIN D-3) 2000 unit tabletIndicatio ns:Prevention of Vitamin D Deficiency Take 0.5 tablets (1,000 Units total) by mouth every morning Active FreeStyle Missy 3 Friendship misc as directed Sugars have been way [...] with other specified complication, unspecified whether manager of drilling insulin use (HCC) CHECK BLOOD SUGAR 3 [...] with other specified complication, unspecified whether manager of drilling insulin use (HCC) USE TO CHECK BLOOD [...] whether prison insulin use (HCC) Use to check blood [...] with other specified complication, unspecified whether manager of drilling insulin use (HCC) TAKE 1 TABLET BY [...] total) by mouth daily 30 tablet 11 04/05/19 25 025 Discontinued Active Problems Patient Care Coordination No te Formatting of this note migh t be different from the original. Per Dr. Limon, GEORGE goal 2-4 d/t receiving treatment for MM on Envarsus 1mg Discharge Preferences: Lab: [facility] , [phone] standing orders q Monthly, FK,UPE, q3 HgbA1C Exp. 03/28/25 Home Health: [facility] /[phone] Local Pharmacy: [facility] in [place] [facility]: [facility] Problem Noted Date Diagnosed [...] cardiology follow up. Discussed plan with attending sanitation associate. HEATHER on CPAP 09/25/2022 Assessment & Plan [...] further with Dr. Yu. Will proceed with [facility] to better assess volume status and pulmonary [...] (04/30/2022): Added automatically from request for surgery [id number] Encounter for preadmission testing 04/24/2022 LAYO (acute [...] gluconate, insulin, and kayaxelate -upon arrival to [facility] ED, K 6.0, WBK 5.6 no additional therapies given -Repeat K and WBK on arrival, manage as appropriate -likely transfer to floor later this morning -renal transplant consult in AM -hold bactrim for time being as could be contributing to hyperkalemia, resume pending transplant nephrology recs ([facility] medication) BPH (benign prostatic hyperplasia) 06/20/2019 Assessment & Plan (06/20/2019 4:45 AM CDT): Continue home flomax Kidney transplant recipient 05/31/2019 Assessment & Plan (09/21/2022 10:01 AM CDT): -alf use of immunosuppressants and steroids complicates diabetes management. Assessment & Plan (05/04/2022 8:32 AM CDT): -terminal block assembler use of immunosuppressants and steroids complicates diabetes [...] (05/30/2019): Added automatically from request for surgery [id number] Pruritus 08/10/2018 ESRD (end stage renal disease) [...] (11/18/2017): Added automatically from request for surgery [id number] Peritoneal dialysis catheter tunnel infection 10/28/19 18 09/12/2018 Overview (10/27/2017): Added automatically from request for surgery [id number] End-stage renal disease on hemodialysis 10/07/2017 05/10/2018 Overview (10/07/2017): Added automatically from request for surgery [id number] Stage 4 chronic kidney disease 01/16/2015 05/10/2018 Encounter for monitoring tacrolimus therapy 11/17/2010 09/12/2018 Encounters Date Type Department Care Team Description 04/27/2024 Lab [facility] Transplant Kidney [address] [facility] [address] [phone] [place] [address] Arturo Garcia MD 04/25/2024 Telephone [facility] Transplant Kidney [address] [facility] [address] [phone] [place] [address] Paul Ramos RN 04/25/2024 Telephone [facility] Transplant Kidney [address] [facility] [address] Mail[address] [phone] [place] [address] Rand Collins RN 04/25/2024 Lab [facility] Transplant Kidney [address] [facility] [address] Mailstop 01-15-496 [place] [address] Arturo Garcia MD 04/24/2024 Orders Only [facility] Health Information Management [address] [place] [address] Scanning, Provider 04/24/2024 Results Follow-Up [facility] Transplant Kidney [address] [facility] [address] Mail[address] [phone] [place] [address] Rand Collins RN 04/24/2024 Lab [facility] Transplant Kidney [address] [facility] [address] [phone] [place] [address] Arturo Garcia MD 04/05/2024 10:30 AM COMMERCIAL GREEN BUILDING DESIGNER Telemedicine [facility] Nephrology [address] [facility] 5th [place] [address] [place] [address] Mary Decker MD Chronic diastolic heart failure (HCC) (Primary Dx); Dyslipidemia; Infiltrative cardiomyopathy (HCC); Primary hypertension; Other hyperlipidemia; Type 2 diabetes mellitus with hyperglycemia, with long-term current use of insulin (HCC); Vitamin D deficiency; Encounter for aftercare following kidney transplant; Renal osteodystrophy; Aftercare following organ transplant; Multiple myeloma in remission (HCC); Hypokalemia; Hypophosphatemia 03/29/2024 Lab [facility] Transplant Kidney [address] [facility] [address] Mail[address] [phone] [place] [address] Arturo Garcia MD 03/28/2024 Orders Only [facility] Transplant Kidney [address] [facility] [address] Mail[address] [phone] [place] [address] Shruthi Soto Kidney transplanted (Primary Dx); Encounter for long-term (current) use of medications; Hyperlipidemia, unspecified hyperlipidemia type; Frequent UTI; Type 1 diabetes mellitus with hyperglycemia (HCC) 03/15/2024 11:00 AM COMMERCIAL GREEN BUILDING DESIGNER Office Visit [facility] Endocrinology Metabolism and Lipid [address] [facility] 13th [place] [address] [place] [phone] Brian Ambrose MD Type 2 diabetes mellitus with other specified complication, unspecified whether prison insulin use (HCC) (Primary Dx); Dyslipidemia; Vitamin D deficiency 03/01/2024 Telephone [facility] Endocrinology Metabolism and Lipid [address] [facility] 13th [place] [address] [place] [address] Isis Harper, greenhouse laborer results high triglycerides 02/29/2024 Lab [facility] Transplant Kidney [address] [facility] [address] Mail[address] [phone] [place] [address] Arturo Garcia MD 02/18/2024 Telephone [facility] Endocrinology Metabolism and Lipid [address] [facility] 13th [place] [address] [place] [address] Isis Harper, RN titrate mounjaro from 7.5 mg to 10 mg from Last 3 Months Immunizations Immunization Administration Dates Next Due Influenza, Trivalent, IM (MDV) 7,12/05/2015,11/15/2014,12/30,10/30/2012 Influenza, Trivalent, Preser vative Free, Intramuscular 02/15/2009 Influenza, Unspecified 11/15/2020 Moderna SARS-CoV-2 Monovalen t Vaccination (12+ YRS) 05/17/2020,04/19/2020 Surgical History Surgery Date Site/Laterality Comments PERITONEAL CATHETER INSERTION TUNNELED 11/11/2015 N/A Removed 2017 [place] BRNCHSC INCL FLUOR GDNCE DX W/CELL WASHG [...] reflux disease) ESRD (end stage renal disease) ([facility]) s/p PD [id number], HD [phone] and kidney tx 2010 & 2019 Gout [...] Added automatically from req uest for surgery [id number] Diabetes mellitus (HCC) Dxd ~201 1 Heart [...] often do you attend chur ch or jewish services? More than 4 times per year 09/29/2022 Do you belong to any clubs o r organizations such as shinto groups, unions, fraternal or athletic groups, or [...] No 09/29/2022 Housing Stability Vital Sign Answer Alexsi e Recorded In the last 12 months, [...] place to sleep or slept in a mcfp (including now)? No 09/29/2022 Personal Safety Answer Date Recorded Have you ever been in or are you currently in a harmful physical or emotional relationship or is someone making you feel afraid or unsafe? Denies 05/03/2023 Sex and Gender Information Value Date Recorded Sex Assigned at Not on file Legal Sex Male 12:49 PM COMMERCIAL GREEN BUILDING DESIGNER Gender Identity Not on file Sexual Orientation Not on file Obstetrics History Last Filed Vital Signs Vital Sign Reading Time Taken Comments Blood Pressure 145/78 03/15/2024 11:09 AM COMMERCIAL GREEN BUILDING DESIGNER Pulse 66 03/15/2024 11:09 AM COMMERCIAL GREEN BUILDING DESIGNER Temperature 36.8 C (98.2 F) 03/15/2024 11:09 AM COMMERCIAL GREEN BUILDING DESIGNER Respiratory Rate 18 12/15/2023 11:24 AM CDT Oxygen Saturation 98% 01/06/2024 12:56 PM COMMERCIAL GREEN BUILDING DESIGNER Inhaled Oxygen Concentration - - Weight 83.6 kg (184 lb 3.2 oz) 03/15/2024 11:09 AM COMMERCIAL GREEN BUILDING DESIGNER Height 170.2 cm (5' 7 ) 03/15/2024 11:09 AM COMMERCIAL GREEN BUILDING DESIGNER Body Mass Index 28.85 03/15/2024 11:09 AM COMMERCIAL GREEN BUILDING DESIGNER Plan of Treatment Health Maintenance Due Date [...] history exists Medical Devices Implanted Type Area Dog Day Care Attendant Device Identifier Shelf Expiration Date Model / Serial / Lot [employer] Luis Miguel Angio-Seal Vip 6fr Closere Device [id number] - [id number] - [id number] Implanted:Qty: 1 on 05/04/2022 by Juan Alston MD at [facility] Vascular Closure Device Left: Femoral [employer] Luis Miguel 01/14/2023 [id number] / [id number] / [id number] [employer] [id number] Cade Acuseal 4-7mm 45cm Taper Graft Vascular Sterile - [id number] - [id number] Implanted:Qty: 1 on 11/01/2017 by Ace Payan MD at [facility] Left: Arm [employer] 04/22/2020 [id number] / [id number] / Explanted Type Area Dog Day Care Attendant Device Identifier Shelf Expiration Date Model / Serial / Lot [employer] [id number] Universa 6fr 22cm Radiopaque Tip Positioner Gunite Mixer Braid - [id number] Implanted:Qty: 1 on 05/30/2019 by Rosario Colebrt MD at [facility] Explanted:Qty: 1 on 07/06/2019 by Con Shelby NP Stent Left: Ureter [employer] 08/21/2023 [id number] / / Description:Transplanted ure ter Procedures Procedure Name Priority Date/Time Associated Diagnosis Comments SCAN - LABS 04/24/2024 4:48 PM CDT TACROLIMUS LEVEL, TROUGH Routine 04/24/2024 RENAL FUNCTION PANEL Routine 04/24/2024 CBC WITH AUTO DIFFERENTIAL Routine 04/24/2024 PROTEIN / CREATININE RATIO, URINE, RANDOM Routine 04/24/2024 CBC WITH AUTO DIFFERENTIAL Routine 03/27/2024 7:51 AM COMMERCIAL GREEN BUILDING DESIGNER PROTEIN / CREATININE RATIO, URINE, RANDOM Routine 03/27/2024 7:51 AM COMMERCIAL GREEN BUILDING DESIGNER RENAL FUNCTION PANEL Routine 03/27/2024 TACROLIMUS LEVEL, [...] Recently Relevant to Health Maintenance Results * SCAN - LABS (04/24/2024 4:48 PM CDT) Provider Scanning Final Result * (ABNORMAL) Tacrolimus level trough (04/24/2024) SCRIBED Tacrolimus, trough 2.2(A) 5 - 20 TXP NO LAB FOUND Blood 04/24/2024 Historical Provider MD LAB BLOOD ORDERABLES Edit ed Result - Final Performing Organization Address [facility] Co de Phone Number TXP NO [...] TXP NO LAB FOUND Blood 04/24/2024 Result [facility] Historical Provider MD LAB BLOOD ORDERABLES Edit ed Result - Final Performing Organization Address City/[facility] Co de Phone Number TXP NO LAB FOUND * (ABNORMAL) Protein / creatinine ratio, urine, random (04/24/2024) SCRIBED Protein, Urine 90.5(A) 0 - 11.9 TXP NO LAB FOUND SCRIBED Creatinine, Urine 88.04 40 - 278 TXP NO LAB FOUND SCRIBED Protein/Creat Ratio 1.03(A) 0 - 0.20 TXP NO LAB FOUND Urine 04/24/2024 Historical Provider LAB URINE ORDERABLES Aida l Result Performing Organization Address [facility]/ZIP Co de Phone Number TXP NO [...] mg/dl TXP NO LAB FOUND Blood 04/24/2024 Historical Provider LAB BLOOD ORDERABLES Aida l Result Performing Organization Address City/[facility]/ZIP Co de Phone Number TXP NO LAB FOUND * (ABNORMAL) CBC with auto differential (03/27/2024 7:51 AM COMMERCIAL GREEN BUILDING DESIGNER) SCRIBED WBC 6.1 4.8 - 10.8 k/cumm [facility] SCRIBED Hemoglobin 16.2 14 - 18 g/dL [facility] SCRIBED Hematocrit 48.2 40 - 54 % [facility] SCRIBED Platelets 116(A) 150 - 420 k/cumm [facility] SCRIBED Lymphocytes Abs 1.03(A) 1.1 - 4.5 k/cumm [facility] Blood 03/27/2024 7:51 AM COMMERCIAL GREEN BUILDING DESIGNER Historical Provider LAB BLOOD ORDERABLES Edit ed Result - Final Performing Organization Address [facility]/ZIP Co de Phone Number [address] [phone] * (ABNORMAL) Protein / creatinine ratio, urine, random (03/27/2024 7:51 AM COMMERCIAL GREEN BUILDING DESIGNER) SCRIBED Protein, Urine 45.9(A) 0 - 11.9 MG/DL [facility] Creatinine, Urine 76.25 40 - 286 MG/DL [facility] SCRIBED Protein/Creat Ratio 0.60(A) 0 - 0.2 MG/MG [facility] Urine 03/27/2024 7:51 AM COMMERCIAL GREEN BUILDING DESIGNER Historical Provider LAB URINE ORDERABLES Aida l Result Performing Organization Address [facility]/ZIP Co de Phone Number [address] [phone] * (ABNORMAL) Tacrolimus level trough (03/27/2024) SCRIBED Tacrolimus, trough 3.0(A) 5 - 20 TXP NO LAB FOUND Blood 03/27/2024 Historical Provider LAB BLOOD ORDERABLES Aida l Result Performing Organization Address City/[facility]/ZIP Co de Phone Number TXP NO [...] NO LAB FOUND SCRIBED eGFR in NonAfrican Burkinan 0 0 TXP NO LAB FOUND SCRIBED Urea Nitrogen (BUN) 34(A) 7 - 18 mg/dl TXP NO LAB FOUND SCRIBED eGFR in 47 >=60 TXP NO LAB FOUND Blood 03/27/2024 Historical Provider LAB BLOOD ORDERABLES Edit ed Result - Final Performing Organization Address [facility]/ZIP Co de Phone Number TXP NO [...] Organization Address [facility] de Phone Number TXP NO LAB FOUND * (ABNORMAL) Albumin Creatinine Ratio, Urine (02/25/2024) SCRIBED Creatinine, Urine 102.95 40 - 278 TXP NO LAB FOUND SCRIBED Microalbumin >400.00 n/a TXP NO LAB FOUND SCRIBED Microalb/Creat Ratio 388.5(A) 0 - 30 TXP NO LAB FOUND Urine 02/25/2024 Result [facility] Provider LAB URINE ORDERABLES Edit ed Result - Final Performing Organization Address [facility] de Phone Number TXP NO LAB FOUND * Hemoglobin A1c (02/25/2024) SCRIBED Hemoglobin A1c 7.7 <57 % TXP NO LAB FOUND Blood 02/25/2024 Result [facility] Historical Provider LAB BLOOD ORDERABLES Aida l Result Performing Organization Address [facility] de Phone Number TXP [...] NO LAB FOUND SCRIBED eGFR in NonAfrican Burkinan 49 >60 TXP NO LAB FOUND SCRIBED [...] 150 TXP NO LAB FOUND Blood 02/25/2024 us Poncho Gant MD LAB BLOOD ORDERABLES Aida l Result TXP NO LAB FOUND * (ABNORMAL) TSH reflex to free T4 (10/12/2022 10:23 AM CDT) TSH 7.31(H) 0.30 - 4.20 mcIUnit/mL [facility] Blood 10/12/2022 10:2 3 AM CDT 10/12/2022 10:40 AM CDT Milli GREEN LAB BLOOD ORDERABLES Aida l Result Performing Organization Address [facility] Co de Phone Number [facility] [place] [address] * PSA screen (09/24/2022 4:48 PM CDT) PSA-Total 0.54 <=5.40 ng/mL [facility] Comment: Interpretive Data AGE SEX REFERENCE [...] BLOOD ORDERABLES Final Result Performing Organization Address City/[facility]/ZIP Co de Phone Number [facility] [place] [address] * Hepatitis C antibody (05/30/2019 1:17 PM CDT) Hep C Ab Nonreactive Nonreactive [facility] Blood specimen (specimen) 05/30/2019 1:17 PM CDT 05/30/2019 1:38 PM CDT us Abi Fitzpatrick NP LAB MICROBIOLOGY - GENERAL ORDERABLES Edited Result - Final [facility] Department [place] [address] from Last 3 Months or Most Recently Relevant to Health Maintenance Insurance [facility] MEDICARE [employer]PA BLUE TRADITIONAL OR AETNA MCR ADVANTRA WORKERS COMPENSATION GENERIC COMPENSATION Advance Directives For more information, please contact: [phone] Documents on File Type Date Recorded Patient Specialty Person Expl anation ADVANCE DIRECTIVE 04/07/2019 2:18 [...] 8:43 AM 05/15/2021 12:44 PM Care Teams Tree Shear Operator Relationship Specialty Start Date End Date Rigo Alvarenga MD PCP - General 03/31/17 Rand Collins, FLORES [address] [facility] [address] [place] [address] Roll Handler 05/31/19 Felipe Foss MD [address] [place] [address] Medical Oncologist/Manager Valuation Hematology and Oncology 01/04/23
--- OUTSIDE RECORDS SUMMARY | 2024-04-27 14:50 | XMS_ITS | Referral Summary ---
Author Organization [facility] Address [address] [place] [address] Care Team Providers Care Apartment Maintenance Worker Name Role Phone Rigo Alvarenga MD Primary Care Provider [phone] Rand Collins RN Unavailable [phone] Felipe Foss MD Unavailable [phone] Encounters Date Type Department Care Team Description 04/27/[address] [facility] Transplant Kidney [address] [facility] [address] Mailstop [phone] [place] [address] Arturo Garcia MD 04/25/[address] [facility] Transplant Kidney [address] [facility] [address] Mailstop [phone] [place] [address] Paul Ramos RN 04/25/[address] [facility] Transplant Kidney [address] [facility] [address] Mailstop [phone] [place] [address] Rand Collins RN 04/25/[address] [facility] Transplant Kidney [address] [facility] [address] Mailstop [phone] [place] [address] Arturo Garcia MD 04/24/2024 Orders Only [facility] Health Information Management [address] [place] [address] Scanning, Provider 04/24/2024 Results Follow-Up [facility] Transplant Kidney [address] [facility] [address] Mailstop [phone] [place] [address] Rand Collins RN 04/24/[address] [facility] Transplant Kidney [address] [facility] [address] Mailstop [phone] [place] [address] Arturo Garcia MD 04/05/2024 10:30 AM STATION INSTALLER Telemedicine [facility] Nephrology [address] [facility] 5[address] [place] [address] [place] [phone] Mary Decker MD Chronic diastolic heart failure (HCC) (Primary Dx); Dyslipidemia; Infiltrative cardiomyopathy (HCC); Primary hypertension; Other hyperlipidemia; Type 2 diabetes mellitus with hyperglycemia, with long-term current use of insulin (HCC); Vitamin D deficiency; Encounter for aftercare following kidney transplant; Renal osteodystrophy; Aftercare following organ transplant; Multiple myeloma in remission (HCC); Hypokalemia; Hypophosphatemia 03/29/[address] [facility] Transplant Kidney [address] [facility] [address] Mailstop [phone] [place] [address] Arturo Garcia MD 03/28/[address] [facility] Transplant Kidney [address] [facility] [address] Mailstop [phone] [place] [address] Shruthi Soto Kidney transplanted (Primary Dx); Encounter for long-term (current) use of medications; Hyperlipidemia, unspecified hyperlipidemia type; Frequent UTI; Type 1 diabetes mellitus with hyperglycemia (HCC) 03/15/2024 11:00 AM STATION INSTALLER Office Visit [facility] Endocrinology Metabolism and Lipid [address] [facility] [facility] [address] [place] [address] [place] [phone] Brian Ambrose MD Type 2 diabetes mellitus with other specified complication, unspecified whether senior care insulin use (HCC) (Primary Dx); Dyslipidemia; Vitamin D deficiency 03/01/[address] [facility] Endocrinology Metabolism and Lipid [address] [facility] [address] [place] [address] [place] [address] Isis Harper, laboratory mechanic helper results high triglycerides 02/29/[address] [facility] Transplant Kidney [address] [facility] [address] Mailstop [phone] [place] [address] Arturo Garcia MD 02/18/[address] [facility] Endocrinology Metabolism and Lipid [address] [facility] [address] [place] [address] [place] [address] Isis Harper, RN titrate mounjaro from 7.5 mg to 10 mg from Last 3 Months Allergies Active Allergy Reactions Criticality Noted Date Comments Codeine Cough Low 11/20/2015 Duloxetine Diarrhea,Hallucinations High 10/26/2012 Prednisone Rash,Other (See comments) Medium 05/16/2010 Acne-like pimples, all over At high doses. 06/20/19: Approved to give Prednisone per Dr. Elinor Villaseñor (Pato Garcia, PharmD) Medications sour alvarez extract (TART ALVAREZ [...] senior care insulin use (HCC) Use to read missy 3 sensor 1 each 01/01/20 23 Active cholecalciferol (VITAMIN D-3) 2000 unit tabletIndicatio ns:Prevention of Vitamin D Deficiency Take 0.5 tablets (1,000 Units total) by mouth every morning Active FreeStyle Missy 3 [place] misc as directed Sugars have been way [...] mellitus with other specified complication, unspecified whether rodent exterminator insulin use (HCC) Inject 1 mg under the skin as needed (as needed for severe hypoglycemia ) 0.4 mL 6 06/07/19 24 Active OneTouch Verio test strips stripIndication s:Type 2 diabetes mellitus with other specified complication, unspecified whether rodent exterminator insulin use (HCC) CHECK BLOOD SUGAR 3 [...] unspecified whether senior care insulin use (HCC) USE TO CHECK BLOOD [...] mellitus with other specified complication, unspecified whether rodent exterminator insulin use (HCC) Use to check [...] mellitus with other specified complication, unspecified whether rodent exterminator insulin use (HCC) TAKE 1 TABLET BY [...] Discharge Preferences: Lab: [facility] , [phone] standing orders q Monthly, FK,UPE, q3 HgbA1C Exp. 03/28/25 Home Health: [facility] /[phone] Local [facility] [place] [facility] Problem Noted Date Diagnosed [...] cardiology follow up. Discussed plan with attending oil field roustabout. HEATHER on CPAP 09/25/2022 Assessment & Plan [...] further with Dr. Yu. Will proceed with [facility] to better assess volume status and pulmonary [...] (04/30/2022): Added automatically from request for surgery [id number] Encounter for preadmission testing 04/24/2022 LAYO (acute [...] gluconate, insulin, and kayaxelate -upon arrival to [facility] ED, K 6.0, WBK 5.6 no additional [...] Assessment & Plan (09/21/2022 10:01 AM CDT): -rodent exterminator use of immunosuppressants and steroids complicates diabetes management. Assessment & Plan (05/04/2022 8:32 AM CDT): -FCI use of immunosuppressants and [...] (05/30/2019): Added automatically from request for surgery [id number] Pruritus 08/10/2018 ESRD (end stage renal disease) [...] (11/18/2017): Added automatically from request for surgery [id number] Peritoneal dialysis catheter tunnel infection 10/28/19 18 09/12/2018 Overview (10/27/2017): Added automatically from request for surgery [id number] End-stage renal disease on hemodialysis 10/07/2017 05/10/2018 Overview (10/07/2017): Added automatically from request for surgery [id number] Stage 4 chronic kidney disease 01/16/2015 05/10/2018 [...] How often do you attend chur or moravian services? More than 4 times per year [...] on file Legal Sex Male 12:49 PM STATION INSTALLER Gender Identity Not on file Sexual Orientation Not on file Last Filed Vital Signs Vital Sign Reading Time Taken Comments Blood Pressure 145/78 03/15/2024 11:09 AM STATION INSTALLER Pulse 66 03/15/2024 11:09 AM STATION INSTALLER Temperature 36.8 C (98.2 F) 03/15/2024 11:09 AM STATION INSTALLER Respiratory Rate 18 12/15/2023 11:24 AM CDT Oxygen Saturation 98% 01/06/2024 12:56 PM STATION INSTALLER Inhaled Oxygen Concentration - - Weight 83.6 kg (184 lb 3.2 oz) 03/15/2024 11:09 AM STATION INSTALLER Height 170.2 cm (5' 7 ) 03/15/2024 11:09 AM STATION INSTALLER Body Mass Index 28.85 03/15/2024 11:09 AM STATION INSTALLER Plan of Treatment Not on file Medical Devices Implanted Type Area Assembly Instructions Writer Device Identifier Shelf Expiration Date Model / Serial / Lot [employer] Angio-Seal Vip 6fr Closere Device [id number] - [id number] - [id number] Implanted:Qty: 1 on 05/04/2022 by Juan Alston MD at [facility] Vascular Closure Device Left: Femoral [employer] 01/14/2023 [id number] / [id number] / [id number] [employer] [id number] Avilla Acuseal 4-7mm 45cm Taper Graft Vascular Sterile - [id number] - [id number] Implanted:Qty: 1 on 11/01/2017 by Ace Payan MD at [facility] Left: Arm [employer] 04/22/2020 [id number] / [id number] / Explanted Type Area Assembly Instructions Writer Device Identifier Shelf Expiration Date Model / Serial / Lot [employer] [id number] Universa 6fr 22cm Radiopaque Tip Positioner Fixture Relamper Braid - [id number] Implanted:Qty: 1 on 05/30/2019 by Rosario Colbert MD at [facility] Explanted:Qty: 1 on 07/06/2019 by Con Shelby NP Stent Left: Ureter Piazza 08/21/2023 [id number] / / Description:Transplanted ure ter Procedures Procedure Name Priority Date/Time Associated Diagnosis Comments SCAN - LABS 04/24/2024 4:48 PM CDT TACROLIMUS LEVEL, TROUGH Routine 04/24/2024 RENAL FUNCTION PANEL Routine 04/24/2024 CBC WITH AUTO DIFFERENTIAL Routine 04/24/2024 PROTEIN / CREATININE RATIO, URINE, RANDOM Routine 04/24/2024 CBC WITH AUTO DIFFERENTIAL Routine 03/27/2024 7:51 AM STATION INSTALLER PROTEIN / CREATININE RATIO, URINE, RANDOM Routine 03/27/2024 7:51 AM STATION INSTALLER RENAL FUNCTION PANEL Routine 03/27/2024 TACROLIMUS [...] Result * (ABNORMAL) Tacrolimus level trough (04/24/2024) Pathologist [facility] SCRIBED Tacrolimus, trough 2.2(A) 5 - 20 TXP NO LAB FOUND Blood 04/24/2024 Historical Provider MD LAB BLOOD ORDERABLES Edit ed Result - Final Performing Organization Address [facility]/ZIP Co de Phone Number TXP NO LAB FOUND * (ABNORMAL) CBC with auto differential (04/24/2024) Pathologist [facility] SCRIBED WBC 7.6 4.8 - 10.8 k/cumm TXP NO LAB FOUND SCRIBED Hemoglobin 17.3 14 - 18 g/dL TXP NO LAB FOUND SCRIBED Hematocrit 51.2 40 - 54 % TXP NO LAB FOUND SCRIBED Platelets 156 150 - 420 k/cumm TXP NO LAB FOUND SCRIBED Lymphocytes Abs 1.07(A) 1.10 - 4.50 k/cumm TXP NO LAB FOUND Blood 04/24/2024 Historical Provider MD LAB BLOOD ORDERABLES Edit ed Result - Final Performing Organization Address [facility]/ZIP Co de Phone Number TXP NO LAB FOUND * (ABNORMAL) Protein / creatinine ratio, urine, random (04/24/2024) SCRIBED Protein, Urine 90.5(A) 0 - 11.9 TXP NO LAB FOUND SCRIBED Creatinine, Urine 88.04 40 - 278 TXP NO LAB FOUND SCRIBED Protein/Creat Ratio 1.03(A) 0 - 0.20 TXP NO LAB FOUND Urine 04/24/2024 Historical Provider LAB URINE ORDERABLES Aida l Result Performing Organization Address City/[facility]/ZIP Co de Phone Number TXP NO LAB [...] Result TXP NO LAB FOUND * (ABNORMAL) CBC with auto differential (03/27/2024 7:51 AM STATION INSTALLER) SCRIBED WBC 6.1 4.8 - 10.8 k/[facility] SCRIBED Hemoglobin 16.2 14 - 18 g/dL [facility] SCRIB Hematocrit 48.2 40 - 54 % [facility] SCRIB Platelets 116(A) 150 - 420 k/cumm [facility] SCRIBED Lymphocytes Abs 1.03(A) 1.1 - 4.5 k/cumm [facility] Blood 03/27/2024 7:51 AM STATION INSTALLER Historical Provider LAB BLOOD ORDERABLES Edit ed Result - Final Performing Organization Address [facility]/ZIP Co de Phone Number [address] [phone] * (ABNORMAL) Protein / creatinine ratio, urine, random (03/27/2024 7:51 AM STATION INSTALLER) SCRIBED Protein, Urine 45.9(A) 0 - 11.9 MG/DL [facility] SCRIB Creatinine, Urine 76.25 40 - 286 MG/DL [facility] SCRIBED Protein/Creat Ratio 0.60(A) 0 - 0.2 MG/MG [facility] Urine 03/27/2024 7:51 AM STATION INSTALLER Historical Provider LAB URINE ORDERABLES Aida l Result Performing Organization Address City/[facility]/ZIP Co de Phone Number [address] [phone] * (ABNORMAL) Tacrolimus level trough (03/27/2024) SCRIBED [...] NO LAB FOUND SCRIBED eGFR in NonAfrican Moroccan 0 0 TXP NO LAB FOUND SCRIBED [...] TXP NO LAB FOUND Blood 02/25/2024 Result [facility] Historical Provider MD LAB BLOOD ORDERABLES Edit ed Result - Final Performing Organization Address [facility] de Phone Number TXP NO LAB FOUND * (ABNORMAL) Albumin Creatinine Ratio, Urine (02/25/2024) SCRIBED Creatinine, Urine 102.95 40 - 278 TXP NO LAB FOUND SCRIBED Microalbumin >400.00 n/a TXP NO LAB FOUND SCRIBED Microalb/Creat Ratio 388.5(A) 0 - 30 TXP NO LAB FOUND Urine 02/25/2024 Result [facility] Provider LAB URINE ORDERABLES Edit ed Result - Final Performing Organization Address [facility] de Phone Number TXP NO LAB FOUND * Hemoglobin A1c (02/25/2024) SCRIBED Hemoglobin A1c 7.7 <57 % TXP NO LAB FOUND Blood 02/25/2024 Result [facility] Historical Provider MD LAB BLOOD ORDERABLES Aida l Result Performing Organization Address [facility] de Phone Number TXP NO [...] NO LAB FOUND SCRIBED eGFR in NonAfrican Moroccan 49 >60 TXP NO LAB FOUND SCRIBED [...] ORDERABLES Aida l Result Performing Organization Address City/[facility] Co de Phone Number TXP NO LAB FOUND * (ABNORMAL) TSH reflex to free T4 (10/12/2022 10:23 AM CDT) TSH 7.31(H) 0.30 - 4.20 mcIUnit/mL [facility] Blood 10/12/2022 10:2 3 AM CDT 10/12/2022 10:40 AM CDT Milli GREEN LAB BLOOD ORDERABLES Aida l Result Performing Organization Address [facility] de Phone Number [facility] Department [place] [address] * PSA screen (09/24/2022 4:48 PM CDT) PSA-Total 0.54 <=5.40 ng/mL [facility] Comment: Interpretive Data AGE SEX REFERENCE [...] BLOOD ORDERABLES Final Result Performing Organization Address [facility] Co de Phone Number [facility] [place] [address] * Hepatitis C antibody (05/30/2019 1:17 PM CDT) Hep C Ab Nonreactive Nonreactive [facility] Blood specimen (specimen) 05/30/2019 1:17 PM CDT 05/30/2019 1:38 PM CDT Abi Fitzpatrick NP LAB MICROBIOLOGY - GENERAL ORDERABLES Edited Result - Final [facility] [place] [address] from Last 3 Months or Most Recently Relevant to Health Maintenance Insurance [facility] MEDICARE [place] BLUE TRADITIONAL [place] [employer] [facility] ADVANTRA WORKERS COMPENSATION GENERIC COMPENSATION Advance Directives For more information, please contact: [phone] Documents on File Type Date Recorded Patient Athletic Coordinator Expl anation ADVANCE DIRECTIVE 04/07/2019 2:18 PM [...] 8:43 AM 05/15/2021 12:44 PM Care Teams Apartment Maintenance Worker Relationship Specialty Start Date End Date Rigo Alvarenga MD PCP - General 03/31/17 Rand Collins, FLORES [address] [facility] [address] [place], [place] [id number] Wood Milling Machine Hand 05/31/19 Felipe Foss MD [address] [place] [address] Medical Oncologist/Fish Dressing Machine Feeder Hematology and Oncology 01/04/23
--- OUTSIDE RECORDS SUMMARY | 2024-04-27 14:51 | XMS_ITS | Data Portability ---
Author Organization [facility], Main Office Address [address] [place] [address] Care Team Providers Care Gallery Or Museum Technician Name Role Phone FELICIA NEELY Primary Care Provider DANIAL GENTILE Student Support Services Director JORGE BEAR Minor League Baseball Player [phone] MEENU STOVER Trade Facilitator USHA BLAIR Laboratory Machinist QUENTIN ADHIKARI Neurologist Assessment No assessment recorded. Plan of Treatment Reminders Order Date Submit Date Provider Last Modified By Organization Details Last Modified Time Details Appointments None recorded. Lab None recorded. Referral None recorded. Procedures None recorded. Surgeries None recorded. Imaging None recorded. Medication Orders cefdinir 300 mg capsule 2023 024 [place] [id number], [address] [place], [address], 4 15:21:56 cefdinir 300 mg capsule 2022 023 [id number], [address] [place], [address], 4 14:19:24 Patient TargetsNo targets recorded. Patient Instructions Encounter Date Encounter Id Patient Instructions Last Modified By Organization Details Last Modified Time 02/11/2023 [id number] this patient's symptoms are consistent with chronic sinusitis but with a history of multiple myeloma imaging is required [email or web address] Not available 02/11/2023 11:55:18 Reason for Referral None Reported. Results Created Date Observation Date Name Description Value Unit Range Abnormal Flag Note LastModifiedBy Organization Detail LastModifiedTime 02/17/19 24 02/12/2023 CT, sinus es, w/o contr ast No observ ation record ed. [address] [place], [address], 02/17/2023 14:40:43 02/18/19 24 02/12/2023 CT, sinus es, w/o contr ast No observ ation record ed. [address] [place], [address], 02/22/2023 15:44:23 06/28/19 24 06/25/2023 CT, head, w/ contr ast No observ ation record ed. [address] [place], [address], 06/28/2023 12:41:54 07/02/19 24 06/25/2023 CT, head, w/ contr ast No observ ation record ed. [address]) [address] [place], [address], 07/06/2023 09:39:15 07/13/19 24 07/13/2023 audio gram + tympa nogra m No observ ation record ed. [place] [email or web address] Not Available 2023 16:19:29 07/16/19 24 07/16/2023 audio gram + tympa nogra m No observ ation record ed. [facility] (Audiology) [address] [place] [address] [place] [address], [address], 07/16/2023 11:10:06 Result Notes None recorded. Problems Name Problem SNOMED Code Status Onset Date Resolution Date Notes Provider Name and Address Organization Details Recorded Time Chronic sinusitis 62652749 Active 2022 Marguerite Shoemaker RN null, [facility] 11:52:03 Sensorineural hearing loss 12272811 Active 2023 Marguerite Shoemaker RN null, [facility] 4 15:13:31 Multiple myeloma 615942536 Active 2023 Marguerite Shomeaker RN null, [facility] 4 15:13:44 Bilateral chronic serous otitis 295320340 Active 2023 Gaston Calderon MD [address] [facility], [facility] [address], [place], [address] [place] [address] [employer] 4 15:21:09 Problem Notes None recorded. Procedures Surgical History Date Name Laterality Status Provider Name and Address Organization Details Recorded Time Kidney completed ISAIAH Ribeiro [facility] 01/12/2023 13:00:19 Imaging Results Imaging Date Name Status LastModified by Organiz ation Details LastModified Time 02/12/2023 CT, sinuses, w/o contrast completed [email or web address] [facility] [address] [place], [address], 02/17/2023 14:40:43 02/12/2023 CT, sinuses, w/o contrast completed [email or web address] [facility] [address] [place], [address], 02/22/2023 15:44:23 06/25/2023 CT, head, w/ contrast completed [email or web address] [facility] [address] [place], [address], 06/28/2023 12:41:54 06/25/2023 CT, head, w/ contrast completed [email or web address] [facility]) [address] [place], [address], 07/06/2023 09:39:15 07/13/2023 audiogram + tympanogram completed [email or web address] Information not available 07/13/2023 16:19:29 07/16/2023 audiogram + tympanogram completed [facility] (Audiology) [address] [place] [address], [address], 07/16/2023 11:10:06 Procedure Notes None recorded. Medical Equipment None Reported. Allergies Allergen ID Allergen Name Allergen Category Reaction Reaction Severity Criticality Documentation Date Start Date Code Code System Note Provider Name and Address Organization Details Recorded Time 59150 prednison e medicatio n rash Not available Not available 01/12/2023 8640 RxNorm PT REPOR TS HIGH DOSAG ES OF PREDN ISONE CAUSE S [facility]ASH [facility] 12:48:29 85705 lisinopri l medicatio n cough Not available Not available 01/12/2023 23678 RxNorm CAUSE S DRY COUGH [facility] 12:48:56 19518 codeine medicatio n cough Not available Not available 01/12/2023 2670 RxNorm [facility]H [facility]ibeiro [facility] 3 12:49:09 81767 duloxetin e medicatio n hallucina tions severe Not available 01/12/2023 64648 RxNorm IS[facility]IAH Ribeiro [facility] 12:49:34 Medications Name Sig Start Date Stop [...] Not Available Not Available Not Available Nasal [place] Bottle active Not Available Not Available Not [...] Available No t Available Free[employer] Missy 3 Grant USE DIRECTED 02/11 completed Not Available Not Available Not Available Vitals Date Recorded Body height Body temperature Body mass index (BMI) Body weight Provider Name and Address Organization Details Last Updated DateTime 02/11/2023 170.18 cm 98.5 [degF] 25.1 kg/m2 10354.78 g Marguerite Shoemaker RN [facility] [email or web address] 02/11/2023 11:34:54 Date Recorded Body height Body mass index (BMI) Body weight Body temperature Provider Name and Address Organization Details Last Updated DateTime 06/17/2023 170.18 cm 26.9 kg/m2 86710.89 g 98.4 [degF] Marguerite Shoemaker RN [facility] 06/17/2023 14:56:07 Social History Question Answer Notes LastModified by Organizat ion Details LastModified Time Tobacco Smoking Status Never Smoker ISAIAH Ribeiro, [facility] 01/12/2023 12:50:49 What Is Your Level Of [...] N BACK INJECTIONS N LUNG DISEASE/DISORDER N ESRD N HISTORY OF DRUG ABUSE N INSOMNIA N COPD N RADIATION / CHEMOTHERAPY N HIGH CHOLESTEROL / HYPERLIPIDEMIA N HYPERTHYROIDISM [...] SNOMED-CT Code Diagnosis ICD10 Code Diagnosis Note [id number] Gaston Calderon MD [facility] [place] [address] [place] [address] 02/11/2023 10:48:37 02/11/2023 12:03:10 Chronic sinusitis 70523512 J32.9 [id number] Gaston Calderon MD [facility] [place] [address] [place] [address] 06/17/2023 14:35:51 06/18/2023 10:52:31 Bilateral chronic serous otitis 414070306 H65.23 Multiple myeloma 3802060 06 C90.00 Chronic sinusitis 230892 00 J32.9 Health Concerns Section Related Observation LastModified by Organization Detai ls LastModified Time None Recorded Concern Status LastModified by Organization Details LastModified Time None Recorded Advance Directives Directive None Recorded Payers Encounter Date Sequence Insurance Name Policy Number Policy Gates Covered Member ID Gates Member ID Guarantor Name 02/11/2023 1 [place] Zachary Melton [id number] Zachary Melton 02/11/2023 2 [place] [id number] Zachary Melton [id number] Zachary Melton 06/17/2023 1 [place] Zachary Melton [id number] Zachary Melton 06/17/2023 1 [employer] (MEDICARE REPLACEMENT PPO) [id number] Zachary Johnstony [id number] Zachary Melton Notes Date Note Type Note [...] Gaston Calderon MD [address], [facility], [place], [address], [employer] [facility] 02/11/2023 11:55:45 06/17/2023 text/html this patient has recently been diagnosed with multiple myeloma. His CT scan in January revealed sinusitis and since then he has been treated with antibiotics. He now reports that he is having temporoparietal pain and was told that he had middle ear fluid Gaston Calderon MD [address], [address], [place], [address], [employer] Staff Ranker 06/17/2023 15:22:16
--- OUTSIDE RECORDS SUMMARY | 2024-04-27 14:51 | XMS_ITS ---
Author Organization [facility] Address [address] [place] [address] Care Team Providers Care Tailer In Name Role Phone Rigo Alvarenga MD Primary Care Provider [phone] Rand Collins RN Unavailable [phone] Felipe Foss MD Unavailable [phone] Transplant Episode Kidney Recipient [facility] ([place], [place]) - [facility] Organ Received: Left Kidney Transplanted on 05/30/2019 Marked as Active Follow-up on 05/30/2019 Reason: Transplanted at [facility] Kidney CoordinatorRand Collins RN Fax: N/A Email: N/A [place] Organ Diagnosis Organ Primary Contributory Kidney Focal [...] Fax Email Rand Collins RN Kidney Coordinator [phone] N/A N/A Miguel Hernandez MD Referring Physician [phone] N/A Darshana Dean RN Secondary Coordinator [phone] N/A N/A Rand Collins RN Web Analytics Specialist [phone] N/A N/A Shruthi Soto Primary Oss Architect N/A N/A N/A Chapo Nelson Secondary Oss Architect N/A N/A N/A Cecelia Wilcox Trauma Director [phone] N/A N/A Events Post-Transplant Pre-Transplant Admitted: 05/30/2019 Referred: 04/02/2015 Transplanted: 05/30/2019 Evaluation began: 6 Discharged: 06/02/2019 Center waitlisted: 6 Appointments (03/30/2024 - 05/28/2024) When With Visit Type Description 04/05/2024 Transplant [...] Dialysis History Dialysis History Start End Type [facility] Center 12/18/2015 05/30/2019 Home Hemodialysis Hemo [facility] Dialysis Center Information Center Phone Fax Address [facility] [phone] [address] [facility] [address]
--- OUTSIDE RECORDS SUMMARY | 2024-04-27 14:51 | XMS_ITS | Encounter Summary ---
Author Organization [facility] Address [address] [place] [address] Phone Care Team Providers Care Quality Assurance Engineer Name Role Phone Rigo Alvarenga MD Primary Care Provider [phone] Rand Collins RN Unavailable [phone] Felipe Foss MD Unavailable [phone] Encounter Details Date Type Department Care Team [...] often do you attend chur ch or christian services? More than 4 times per year 05/31/2019 Do you belong to any clubs o r organizations such as jewish groups, unions, fraternal or athletic groups, or [...] on file Legal Sex Male 12:49 PM CRM BUSINESS ANALYST Gender Identity Not on file Sexual Orientation [...] on filedocumented in this encounter Care Teams Quality Assurance Engineer Relationship Specialty Start Date End Date Rigo Alvarenga MD PCP - General 03/31/17 Rand Collins, FLORES [address] [place], [place] [id number] Workgroup Leader 05/31/19 Felipe Foss MD [address] [place] [address] Medical Oncologist/Vaccinator Hematology and Oncology 01/04/23 documented as of this encounter
--- OUTSIDE RECORDS SUMMARY | 2024-04-27 14:51 | XMS_ITS ---
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, bilateral legs I70.203 ; Tinea pedis B35.3 ; Tinea unguium B35.1 ; Pain in right toe(s) M79.674 and Pain in left toe(s) M79.675 Assessments Encounter Date Diagnosis (ICD Code) Assessment Notes Treatment Notes Treatment Clinical Notes Section Notes 09/09/2023 Unspecified atherosclerosis of [place] island arteries of extremities, bilateral legs (ICD-10 - [...] Treatment Notes Assessment Notes Unspecified atherosclerosis of king island arteries of extremities, bilateral legs Patient educated [...] Notes * ISAIAH SARGENTMARCIADOB:1960 (63 yo M)Acc No.[id number]:09/09/2023 Progress Notes Patient: HUSSAIN EDWARDS Provider: Onel JUNIOR :1960 A ge:63 Y S ex:Male Date:09/09/2023 Address:[address] [place], [place] [id number] Subjective: * Chief Complaints: * 1 . [...] (Primary) 2 . U nspecified atherosclerosis of king island arteries of extremities, bilateral legs - I70.203 3 . T inea unguium - B35.1 4 . P ain in right toe(s) - M79.674 5 . P ain in left toe(s) - M79.675 Plan: * Treatment: 2. U nspecified atherosclerosis of king island arteries of extremities, bilateral legs Notes: Patient [...] Months * Billing Information: * Visit Code: 27604 Office Visit, New Pt., Level 3. * Procedure Codes: * Sign off status: Completed true * Provider: Onel JUNIOR Date: 0 09/09/2023 Generated for Bibiana Moralez on: 0 04/27/2024 02:51 PM CDT History and Physical Notes * [...]
--- OUTSIDE RECORDS SUMMARY | 2024-04-27 14:51 | XMS_ITS | Encounter Summary ---
Author Organization [facility] Address [address] [place] [address] Phone Care Team Providers Care Special Order Jeweler Name Role Phone Rigo Alvarenga MD Primary Care Provider [phone] Rand Collins RN Unavailable [phone] Felipe Foss MD Unavailable [phone] Encounter Details Date Type Department Care Team [...] often do you attend chur ch or anglican services? 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
--- OUTSIDE RECORDS SUMMARY | 2024-04-27 14:51 | XMS_ITS | Encounter Summary ---
Author Organization [facility] Address [address] [place] [address] Care Team Providers Care Marketing Support Manager Name Role Phone Rigo Alvarenga MD Primary Care Provider [phone] Rand Collins RN Unavailable [phone] Felipe Foss MD Unavailable [phone] Encounter Details Date Type Department Care Team (Late st Contact Info) Description 04/24/2024 Results Follow-Up [facility] Transplant Kidney [address] [facility] [phone] [place] [address] Rand Collins, RN [address] [facility] [address] [place], [place] [id number] Social History Tobacco Use Types Packs/Day Years [...] How often do you attend chur or sabianist services? 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 Publimind message sent to pt tocheck BP/HR and swelling. documented in this encounter Plan of Treatment Not on file documented as of this encounter Visit Diagnoses Not on filedocumented in this encounter Care Teams Marketing Support Manager Relationship Specialty Start Date End Date Rigo Alvarenga MD PCP - General 03/31/17 Rand Collins RN [address] [place] [address] Nutrition Director 05/31/19 Felipe Foss MD [address] [place] [address] Medical Oncologist/Chief Minister Hematology and Oncology 01/04/23 documented as of this encounter
--- OUTSIDE RECORDS SUMMARY | 2024-04-27 14:51 | XMS_ITS | Encounter Summary ---
Author Organization [facility] Address [address] [place] [address] Care Team Providers Care Instrumentation Supervisor Name Role Phone Rigo Alvarenga MD Primary Care Provider [phone] Rand Collins RN Unavailable [phone] Felipe Foss MD Unavailable [phone] Encounter Details Date Type Department Care Team (Late st Contact Info) Description 04/27/2024 Lab [facility] Transplant Kidney [address] [facility] [phone] [place], [place] [phone] Arturo Garcia MD [address] [place] [address] Social History Tobacco Use Types Packs/Day Years [...] How often do you attend chur or jain services? More than 4 times per year 09/29/2022 Do you belong to any clubs o r organizations such as methodist groups, unions, fraternal or athletic groups, or [...] place to sleep or slept in a half-way (including now)? No 09/29/2022 Personal Safety Answer Date Recorded Have you ever been in or are you currently in a harmful physical or emotional relationship or is someone making you feel afraid or unsafe? 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 Gender Identity Not on file Sexual Orientation Not on file documented as of this encounter Plan of Treatment Not on file documented as of this encounter Procedures Procedure Name Priority Date/Time Associated Diagnosis Comments TACROLIMUS LEVEL, TROUGH Routine 04/24/2024 documented in this encounter Results * (ABNORMAL) Tacrolimus level trough (04/24/2024) SCRIBED Tacrolimus, trough 2.2(A) 5 - 20 TXP NO LAB FOUND Blood 04/24/2024 us Historical Provider LAB BLOOD ORDERABLES Edit ed Result - Final TXP NO LAB FOUND documented in this encounter Visit Diagnoses Not on filedocumented in this encounter Care Teams Instrumentation Supervisor Relationship Specialty Start Date End Date Rigo Alvarenga MD PCP - General 03/31/17 Rand Collins, FLORES [address] [place] [address] Leather Belt Loop Cutter 05/31/19 Felipe Foss MD [address] [place] [address] Medical Oncologist/Valve Maker Hematology and Oncology 01/04/23 documented as of this encounter
--- OUTSIDE RECORDS SUMMARY | 2024-04-27 14:51 | XMS_ITS ---
Author Organization [facility] Address [address] [place], [place] [address] Care Team Providers Care General Service Technician Name Role Phone MELA VENTURA Unavailable [phone] Rigo Alvarenga Unavailable Unavailable ALVIN JUNIOR Unavailable [phone] REASON FOR VISIT *General care Encounters Encounter Location Date Provider Diagnosis [facility] [address] [place], [place] [phone] 11/18/2023 ALVIN JUNIOR Plan Of Treatment No Information Progress Notes * ROSETTAHUSSAINDOB:1960 (63 yo M)Acc No.[id number]:11/18/2023 Patient: Onel OCONNORYISAIAHHUSSAIN Provider: Onel JUNIOR :1960 A ge:63 Y S ex:Male Date:11/18/2023 Address:[address] [place], [place] Subjective: * Chief Complaints: * 1 . *General care. * Medical History: Objective: * Vitals: Assessment: Plan: * Treatment: * Billing Information: * Visit Code: * Procedure Codes: * Electronic signature of MALIKA JUNIOR DPM on 04/27/2024 at 02:50 PM CDT Sign off status: Pending * Provider: Onel JUNIOR Date: 1 Generated for Bibiana felder/Dulce/Guillermo on: 0 04/27/2024 02:50 PM CDT
--- OUTSIDE RECORDS SUMMARY | 2024-04-27 14:51 | XMS_ITS | Encounter Summary ---
Author Organization [facility] Address [address] [place] [address] Care Team Providers Care Lobby Attendant Name Role Phone Rigo Alvarenga MD Primary Care Provider [phone] Rand Collins RN Unavailable [phone] Felipe Foss MD Unavailable [phone] Encounter Details Date Type Department Care Team (Late st Contact Info) Description 04/24/2024 Orders Only [facility] Health Information Management [address] [place] [address] Scanning, Provider Social History Tobacco Use Types [...] often do you attend chur ch or taoism services? More than 4 times per year [...] place to sleep or slept in a assisted (including now)? No 09/29/2022 Personal Safety Answer Date Recorded Have you ever been in or are you currently in a harmful physical or emotional relationship or is someone making you feel afraid or unsafe? 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 Gender Identity Not on file Sexual Orientation Not on file documented as of this encounter Plan of Treatment Not on file documented as of this encounter Procedures Procedure Name Priority Date/Time Associated Diagnosis Comments SCAN - LABS 04/24/2024 4:48 PM CDT documented in this encounter Results * SCAN - LABS (04/24/2024 4:48 PM CDT) us Provider Scanning Final Result documented in this encounter Visit Diagnoses Not on filedocumented in this encounter Care Teams Lobby Attendant Relationship Specialty Start Date End Date Rigo Alvarenga MD PCP - General 03/31/17 Rand Collins, RN [address] [facility] [address] [place] [address] Medical Administrative Assistant 05/31/19 Felipe Foss MD [address] [place] [address] Medical Oncologist/Private Equity Associate Hematology and Oncology 01/04/23 documented as of this encounter
--- OUTSIDE RECORDS SUMMARY | 2024-04-27 14:51 | XMS_ITS ---
Author Organization [facility] Address [address] [place] [address] Care Team Providers Care Production Operations Engineer Name Role Phone Rigo Alvarenga MD Primary Care Provider [phone] Rand Collins RN Unavailable [phone] Felipe Foss MD Unavailable [phone] Active Problems Patient Care Coordination No te Formatting of this note migh t be different from the original. Per Dr. Limon, GEORGE goal 2-4 d/t receiving treatment for MM on Envarsus 1mg Discharge Preferences: Lab: [facility] , [phone] standing orders q Monthly, FK,UPE, q3 HgbA1C Exp. 03/28/25 Home Health: [facility] /[phone] Local Pharmacy: [facility] in [place] [facility]: [facility] Problem Noted Date Diagnosed [...] cardiology follow up. Discussed plan with attending stone grader. HEATHER on CPAP 09/25/2022 Assessment & Plan [...] further with Dr. Yu. Will proceed with [facility] to better assess volume status [...] (04/30/2022): Added automatically from request for surgery [id number] Encounter for preadmission testing 04/24/2022 LAYO (acute [...] kayaxelate -upon arrival to [facility], K 6.0, WBK 5.6 no additional therapies given -Repeat K and WBK on arrival, manage as appropriate -likely transfer to floor later this morning -renal transplant consult in AM -hold bactrim for time being as could be contributing to hyperkalemia, resume pending transplant nephrology recs ([facility] medication) BPH (benign prostatic hyperplasia) 06/20/2019 Assessment & Plan (06/20/2019 4:45 AM CDT): Continue home flomax Kidney transplant recipient 05/31/2019 Assessment & Plan (09/21/2022 10:01 AM CDT): -intermediate card tender use of immunosuppressants and steroids complicates diabetes management. Assessment & Plan (05/04/2022 8:32 AM CDT): -intermediate card tender use of immunosuppressants and steroids complicates diabetes [...] (05/30/2019): Added automatically from request for surgery [id number] Pruritus 08/10/2018 ESRD (end stage renal disease) [...] Foss MD Linked Problems Multiple myeloma in [facility]) Treatment Medications Current Day (Day 1 , Cycle 4 - Planned for 12/01/2023) Next Day (Day 15, Cycle 4 - Planned for 12/15/2023) bortezomib (VELCADE) bortezomib (VELCADE ) subcutaneous syringe 2.625 mg bortezomib (VELCADE) subcutaneous syringe 2.625 mg Zoledronic Acid (ZOMETA) Infusion* Plan Start Date:02/24/2023 Plan Provider:Felipe Foss MD Linked Problems Multiple myeloma in [facility]) Treatment Medications No medications scheduled. Past Treatment [...] (11/18/2017): Added automatically from request for surgery [id number] Peritoneal dialysis catheter tunnel infection 10/28/19 18 09/12/2018 Overview (10/27/2017): Added automatically from request for surgery [id number] End-stage renal disease on hemodialysis 10/07/2017 05/10/2018 Overview (10/07/2017): Added automatically from request for surgery [id number] Stage 4 chronic kidney disease 01/16/2015 05/10/2018 Encounter for monitoring tacrolimus therapy 11/17/2010 09/12/2018
--- OUTSIDE RECORDS SUMMARY | 2024-04-27 14:51 | XMS_ITS | Encounter Summary ---
Author Organization [facility] Address [address] [place] [address] Phone Care Team Providers Care International Trade Specialist Name Role Phone Rigo Alvarenga MD Primary Care Provider [phone] Rand Collins RN Unavailable [phone] Felipe Foss MD Unavailable [phone] Encounter Details Date Type Department Care Team [...] often do you attend chur ch or episcopalian services? 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
--- OUTSIDE RECORDS SUMMARY | 2024-04-27 14:51 | XMS_ITS | Encounter Summary ---
Author Organization [facility] Address [address] [place] [address] Care Team Providers Care Pain Management Physician Name Role Phone Rigo Alvarenga MD Primary Care Provider [phone] Rand Collins RN Unavailable [phone] Felipe Foss MD Unavailable [phone] Encounter Details Date Type Department Care Team (Late st Contact Info) Description 10/16/2021 Telephone [facility] [address] [facility] [address] [place] [address] Rigo Alvarenga MD [address] [place] [address] Social History Tobacco Use Types [...] often do you attend chur ch or adventist services? 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
== END 2024-04-27 13:14 | disposition home or self-care (01) ==
LOC: CHSLAB 13:15
PROVIDERS: PCP Internal Medicine; Visit Provider Internal Medicine
DX: Z94.0 Kidney transplant status (principal)
CPT/HCPCS: 36415

== ENCOUNTER 2024-05-01 07:34 | Outpatient (CLI) | payer MEDICARE, SELFPAY ==
--- OUTSIDE RECORDS SUMMARY | 2024-05-01 07:40 | XMS_ITS | Data Portability ---
Author Organization [place] [facility] Main Office Address [address] [place] [address] Care Team Providers Care Lead Level Designer Name Role Phone FELICIA NEELY Primary Care Provider DANIAL GENTILE Survey Instrument Operator JORGE BEAR Social Media Manager [phone] MEENU STOVER Analysis Reporting Developer USHA BLAIR City Letter Carrier QUENTIN ADHIKARI Neurologist Assessment No assessment recorded. Plan of Treatment Reminders Order Date Submit Date Provider Last Modified By Organization Details Last Modified Time Details Appointments None recorded. Lab None recorded. Referral None recorded. Procedures None recorded. Surgeries None recorded. Imaging None recorded. Medication Orders cefdinir 300 mg capsule 2023 024 [id number], [address] [place], [address], 4 15:21:56 cefdinir 300 mg capsule 2022 023 [id number], [address] [place], [address], 4 14:19:24 Patient TargetsNo targets recorded. Patient Instructions Encounter Date Encounter Id Patient Instructions Last Modified By Organization Details Last Modified Time 02/11/2023 [id number] this patient's symptoms are consistent with chronic sinusitis but with a history of multiple myeloma imaging is required [email or web address] Not available 02/11/2023 11:55:18 Reason for Referral None Reported. Results Created Date Observation Date Name Description Value Unit Range Abnormal Flag Note LastModifiedBy Organization Detail LastModifiedTime 02/17/19 24 02/12/2023 CT, sinus es, w/o contr ast No observ ation record ed. [address] [place], [address], 02/17/2023 14:40:43 02/18/19 24 02/12/2023 CT, sinus es, w/o contr ast No observ ation record ed. [address] [place], [address], 02/22/2023 15:44:23 06/28/19 24 06/25/2023 CT, head, w/ contr ast No observ ation record ed. [address] [place], [address], 06/28/2023 12:41:54 07/02/19 24 06/25/2023 CT, head, w/ contr ast No observ ation record ed. [address]) [address] [place], [address], 07/06/2023 09:39:15 07/13/19 24 07/13/2023 audio gram + tympa nogra m No observ ation record ed. [place] [email or web address] Not Available 2023 16:19:29 07/16/19 24 07/16/2023 audio gram + tympa nogra m No observ ation record ed. [facility] (Audiology) [address] [place] [address] [place] [address], [address], 07/16/2023 11:10:06 Result Notes None recorded. Problems Name Problem SNOMED Code Status Onset Date Resolution Date Notes Provider Name and Address Organization Details Recorded Time Chronic sinusitis 22595455 Active 2022 Marguerite Shoemaker RN null, [facility] 11:52:03 Sensorineural hearing loss 47621914 Active 2023 Marguerite Shoemaker RN null, [facility] 4 15:13:31 Multiple myeloma 903666185 Active 2023 Marguerite Shoemaker RN null, [facility] 4 15:13:44 Bilateral chronic serous otitis 306569791 Active 2023 Gaston Calderon MD [address] [facility], [facility] [address], [place], [address] [place] [address] [employer] 4 15:21:09 Problem Notes None recorded. Procedures Surgical History Date Name Laterality Status Provider Name and Address Organization Details Recorded Time Kidney completed ISAIAH Ribeiro [facility] 01/12/2023 13:00:19 Imaging Results Imaging Date Name Status LastModified by Organiz ation Details LastModified Time 02/12/2023 CT, sinuses, w/o contrast completed [email or web address] [address] [place], [address], 02/17/2023 14:40:43 02/12/2023 CT, sinuses, w/o contrast completed [email or web address] [address] [place], [address], 02/22/2023 15:44:23 06/25/2023 CT, head, w/ contrast completed [email or web address] [address] [place], [address], 06/28/2023 12:41:54 06/25/2023 CT, head, w/ contrast completed [email or web address]) [address] [place], [address], 07/06/2023 09:39:15 07/13/2023 audiogram + tympanogram completed [email or web address] Information not available 07/13/2023 16:19:29 07/16/2023 audiogram + tympanogram completed [facility] (Audiology) [address] [place] [address], [address], 07/16/2023 11:10:06 Procedure Notes None recorded. Medical Equipment None Reported. Allergies Allergen ID Allergen Name Allergen Category Reaction Reaction Severity Criticality Documentation Date Start Date Code Code System Note Provider Name and Address Organization Details Recorded Time 86970 prednison e medicatio n rash Not available Not available 01/12/2023 8640 RxNorm PT REPOR TS HIGH DOSAG ES OF PREDN ISONE [facility]USE S [facility]ASH [facility] 12:48:29 75009 lisinopri l medicatio n cough Not available Not available 01/12/2023 32381 RxNorm CAUSE S DRY COUGH [facility] 12:48:56 56274 codeine medicatio n cough Not available Not available 01/12/2023 2670 RxNorm [facility]ibe[facility] [employer] [facility] 3 12:49:09 52505 duloxetin e medicatio n hallucina tions severe Not available 01/12/2023 87159 RxNorm ISAIAH Ribeiro [facility] [employer] [facility] 12:49:34 Medications Name Sig Start Date Stop [...] Not Available Not Available Not Available Nasal [place] Bottle active Not Available Not Available Not [...] Available No t Available [employer] Missy 3 [place] USE DIRECTED 02/11 completed Not Available Not Available Not Available Vitals Date Recorded Body height Body temperature Body mass index (BMI) Body weight Provider Name and Address Organization Details Last Updated DateTime 02/11/2023 170.18 cm 98.5 [degF] 25.1 kg/m2 89951.78 g Marguerite Shoemaker RN [facility] [employer] 02/11/2023 11:34:54 Date Recorded Body height Body mass index (BMI) Body weight Body temperature Provider Name and Address Organization Details Last Updated DateTime 06/17/2023 170.18 cm 26.9 kg/m2 94921.89 g 98.4 [degF] Marguerite Shoemaker RN [facility] [employer] 06/17/2023 14:56:07 Social History Question Answer Notes LastModified by Organizat ion Details LastModified Time Tobacco Smoking Status Never Smoker ISAIAH Ribeiro, [facility] [employer] 01/12/2023 12:50:49 What Is Your Level Of [...] HISTORY OF DRUG ABUSE N INSOMNIA N RADIATION / CHEMOTHERAPY N COPD N [...] SPECIFY Y TOURETTE'S N BLOOD TRANSFUSION N ANEMIA/BLOOD DISORDER N ANESTHESIA COMPLICATIONS N CHRONIC EAR INFECTIONS N ATRIAL FIBRILLATION N AUTOIMMUNE DISEASE N TUBERCULOSIS N Past Encounters Encounter ID Performer Location Encounter Start Date Encounter Closed Date Diagnosis/Indication Diagnosis SNOMED-CT Code Diagnosis ICD10 Code Diagnosis Note [id number] Gaston Calderon MD [facility] [place] [address] [place] [address] 02/11/2023 10:48:37 02/11/2023 12:03:10 Chronic sinusitis 93375096 J32.9 [id number] Gaston Calderon MD [facility] [place] [address] [place] [address] 06/17/2023 14:35:51 06/18/2023 10:52:31 Bilateral chronic serous otitis 065995858 H65.23 Multiple myeloma 5496761 06 C90.00 Chronic sinusitis 051948 00 J32.9 Health Concerns Section Related Observation LastModified by Organization Detai ls LastModified Time None Recorded Concern Status LastModified by Organization Details LastModified Time None Recorded Advance Directives Directive None Recorded Payers Encounter Date Sequence Insurance Name Policy Number Policy Gates Covered Member ID Gates Member ID Guarantor Name 02/11/2023 1 [place] Zachary Melton [id number] Zachary Melton 02/11/2023 2 [place] [id number] Zachary Melton [id number] Zachary Melton 06/17/2023 1 [place] Zachary Melton [id number] Zachary Melton 06/17/2023 1 [employer] (MEDICARE REPLACEMENT PPO) [id number] Zachary Johnstony [id number] Zachary Melton Notes Date Note Type Note [...] Gaston Calderon MD [address] [facility], [place], [address], [employer] [facility] 02/11/2023 11:55:45 06/17/2023 text/html this patient has recently been diagnosed with multiple myeloma. His CT scan in January revealed sinusitis and since then he has been treated with antibiotics. He now reports that he is having temporoparietal pain and was told that he had middle ear fluid Gaston Calderon MD [address], [place], [address], [employer] 06/17/2023 15:22:16
[2024-05-01 12:43] LABS: Kit Draw Collected
== END 2024-05-01 07:35 | disposition home or self-care (01) ==
LOC: CHSLAB 07:38
PROVIDERS: PCP Internal Medicine; Visit Provider Transplant Surgery
DX: N18.6 End stage renal disease (principal)
CPT/HCPCS: 36415

== ENCOUNTER 2024-07-25 09:12 | Outpatient (RCR) | payer MEDICARE, SELFPAY ==
[2024-05-25 07:47] LABS: Hematocrit 48.6 % (40.0-54.0); Hemoglobin 15.9 g/dL (14.0-18.0); Immature Granulocyte Percent A 0.4 % (0.0-0.0); Immature Platelet Fraction Pct 1.3 % (1.0-7.0); Lymphocytes Absolute Auto 1.31 K/mm3 (1.10-4.50); Mean Corpuscular HGB Conc 32.7 g/dL (32-36); Mean Corpuscular Hemoglobin 30.2 pg (27.0-31.0); Mean Corpuscular Volume 92.4 fL (78.0-102.0); Nucleated Red Blood Cells Absolute Auto 0.00 K/mm3 (0.00-0.00); Nucleated Red Blood Cells Perc 0.0 % (0-0.0); Platelet Count Result 142 K/mm3 (150-420); Red Blood Count 5.26 M/mm3 (4.70-6.10); White Blood Count 7.7 K/mm3 (4.8-10.8)
[2024-05-25 07:54] LABS: Hemoglobin A1C 6.7 % (<5.7)
[2024-05-25 08:06] LABS: Alanine Aminotransferase 55 U/L (16-63); Albumin Level 3.9 g/dL (3.4-5.0); Alkaline Phosphatase 94 U/L (46-116); Anion Gap 7 mmol/L (4-12); Aspartate Amino Transferase 20 U/L (15-37); Bilirubin,Total 2.2 mg/dL (0.00-1.00); Blood Urea Nitrogen 23 mg/dL (7-18); Calcium 9.3 mg/dL (8.5-10.1); Carbon Dioxide 30 mmol/L (21-32); Chloride 104 mmol/L (98-108); Cholesterol 156 mg/dL (0-200); Estimated Glomerular Filt Rate 45; Glucose 129 mg/dL (70-99); HDL Direct 57 mg/dL (40-60); Osmolality Calculated 297 mOsm/kg (285-295); Potassium 3.7 mmol/L (3.5-5.1); Sodium 141 mmol/L (136-145); Total Protein 6.4 g/dL (6.4-8.2); Triglycerides 155 mg/dL (0-150)
[2024-05-25 10:05] LABS: Total Protein Urine Random 88.9 mg/dL (0.0-11.9); Ur Ttl Prot Creatinine Ratio 0.86 mg/mg (0-0.20)
[2024-05-27 16:28] LABS: Tacrolimus Prograf. 1.8 mcg/L
[2024-06-23 11:09] LABS: Hematocrit 49.9 % (40.0-54.0); Hemoglobin 16.7 g/dL (14.0-18.0); Immature Granulocyte Percent A 0.2 % (0.0-0.0); Lymphocytes Absolute Auto 0.90 K/mm3 (1.10-4.50); Mean Corpuscular HGB Conc 33.5 g/dL (32-36); Mean Corpuscular Hemoglobin 29.8 pg (27.0-31.0); Mean Corpuscular Volume 89.1 fL (78.0-102.0); Nucleated Red Blood Cells Absolute Auto 0.00 K/mm3 (0.00-0.00); Nucleated Red Blood Cells Perc 0.0 % (0-0.0); Platelet Count Result 159 K/mm3 (150-420); Red Blood Count 5.60 M/mm3 (4.70-6.10); White Blood Count 8.2 K/mm3 (4.8-10.8)
[2024-06-23 11:35] LABS: Total Protein Urine Random 120.1 mg/dL (0.0-11.9); Ur Ttl Prot Creatinine Ratio 1.26 mg/mg (0-0.20)
[2024-06-23 11:57] LABS: Albumin Level 4.2 g/dL (3.5-5.1); Anion Gap 4 mmol/L (4-12); Blood Urea Nitrogen 24 mg/dL (9-20); Calcium 9.4 mg/dL (8.4-10.2); Carbon Dioxide 24 mmol/L (22-30); Chloride 112 mmol/L (98-107); Estimated Glomerular Filt Rate 53; Glucose 119 mg/dL (65-110); Osmolality Calculated 295 mOsm/kg (285-295); Potassium 3.5 mmol/L (3.4-5.0); Sodium 140 mmol/L (137-145)
[2024-06-26 12:24] LABS: Tacrolimus Prograf. 2.9 mcg/L
[2024-07-25 09:45] LABS: Hematocrit 49.4 % (40.0-54.0); Hemoglobin 16.7 g/dL (14.0-18.0); Immature Granulocyte Percent A 0.3 % (0.0-0.0); Lymphocytes Absolute Auto 1.24 K/mm3 (1.10-4.50); Mean Corpuscular HGB Conc 33.8 g/dL (32-36); Mean Corpuscular Hemoglobin 30.3 pg (27.0-31.0); Mean Corpuscular Volume 89.5 fL (78.0-102.0); Nucleated Red Blood Cells Absolute Auto 0.00 K/mm3 (0.00-0.00); Nucleated Red Blood Cells Perc 0.0 % (0-0.0); Platelet Count Result 147 K/mm3 (150-420); Red Blood Count 5.52 M/mm3 (4.70-6.10); White Blood Count 7.4 K/mm3 (4.8-10.8)
[2024-07-25 10:27] LABS: Albumin Level 4.3 g/dL (3.5-5.1); Anion Gap 6 mmol/L (4-12); Blood Urea Nitrogen 23 mg/dL (9-20); Calcium 9.7 mg/dL (8.4-10.2); Carbon Dioxide 25 mmol/L (22-30); Chloride 109 mmol/L (98-107); Estimated Glomerular Filt Rate 53; Glucose 111 mg/dL (65-110); Osmolality Calculated 294 mOsm/kg (285-295); Potassium 3.7 mmol/L (3.4-5.0); Sodium 140 mmol/L (137-145)
[2024-07-25 10:59] LABS: Total Protein Urine Random > 200 mg/dL; Ur Ttl Prot Creatinine Ratio 2.30 mg/mg (0-0.20)
[2024-07-27 15:44] LABS: Tacrolimus Prograf. 1.9 mcg/L
== END 2024-08-23 23:59 | disposition home or self-care (01) ==
LOC: CHSLAB 09:12
DX: Z94.0 Kidney transplant status (principal); E78.5 Hyperlipidemia, unspecified; N39.0 Urinary tract infection, site not specified; Z79.899 Other long term (current) drug therapy
CPT/HCPCS: 36415; 80061; 80069; 80076; 80197; 81050; 82570; 83036; 84156; 85025; 85055

== ENCOUNTER 2024-08-25 07:04 | Outpatient (RCR) | payer MEDICARE, SELFPAY ==
[2024-08-25 07:33] LABS: Hematocrit 48.7 % (40.0-54.0); Hemoglobin 16.0 g/dL (14.0-18.0); Immature Granulocyte Percent A 0.3 % (0.0-0.0); Lymphocytes Absolute Auto 1.07 K/mm3 (1.10-4.50); Mean Corpuscular HGB Conc 32.9 g/dL (32-36); Mean Corpuscular Hemoglobin 29.6 pg (27.0-31.0); Mean Corpuscular Volume 90.2 fL (78.0-102.0); Nucleated Red Blood Cells Absolute Auto 0.00 K/mm3 (0.00-0.00); Nucleated Red Blood Cells Perc 0.0 % (0-0.0); Platelet Count Result 151 K/mm3 (150-420); Red Blood Count 5.40 M/mm3 (4.70-6.10); White Blood Count 6.2 K/mm3 (4.8-10.8)
[2024-08-25 07:46] LABS: Total Protein Urine Random 154 mg/dL; Ur Ttl Prot Creatinine Ratio 1.47 mg/mg (0-0.20)
[2024-08-25 07:50] LABS: Hemoglobin A1C 6.3 % (<5.7)
[2024-08-25 08:11] LABS: Alanine Aminotransferase 43 U/L (6-50); Albumin Level 4.3 g/dL (3.5-5.1); Alkaline Phosphatase 61 U/L (38-126); Anion Gap 5 mmol/L (4-12); Aspartate Amino Transferase 38 U/L (17-59); Bilirubin,Total 3.0 mg/dL (0.2-1.3); Blood Urea Nitrogen 19 mg/dL (9-20); Calcium 9.8 mg/dL (8.4-10.2); Carbon Dioxide 27 mmol/L (22-30); Chloride 108 mmol/L (98-107); Cholesterol 152 mg/dL (0-200); Estimated Glomerular Filt Rate 50; Glucose 117 mg/dL (65-110); HDL Direct 53 mg/dL; Osmolality Calculated 293 mOsm/kg (285-295); Potassium 3.8 mmol/L (3.4-5.0); Sodium 140 mmol/L (137-145); Total Protein 6.7 g/dL (6.3-8.2); Triglycerides 185 mg/dL (<150)
[2024-08-29 18:08] LABS: Tacrolimus (FK506), Blood 2.6 ng/mL (5.0-20.0)
== END 2024-11-23 23:59 | disposition home or self-care (01) ==
LOC: CHSLAB 07:04
PROVIDERS: PCP Internal Medicine
DX: Z94.0 Kidney transplant status (principal); E78.5 Hyperlipidemia, unspecified; N39.0 Urinary tract infection, site not specified; E10.65 Type 1 diabetes mellitus with hyperglycemia; Z79.899 Other long term (current) drug therapy
CPT/HCPCS: 36415; 80061; 80069; 80076; 80197; 82570; 83036; 84156; 85025

== ENCOUNTER 2024-09-25 07:02 | Outpatient (CLI) | payer MEDICARE, SELFPAY ==
--- OUTSIDE RECORDS SUMMARY | 2024-09-25 07:10 | XMS_ITS | Encounter Summary ---
Author Organization [facility] Address [facility] [place] [address] Care Team Providers Care Lather Apprentice Name Role Phone Rigo Alvarenga MD Primary Care Provider [phone] Encounter Details Date Type Department Care Team (Late st Contact Info) Description 07/23/2018 Abstract [facility] CONVERSION [address] [place] [address] , Generic ConversionMD Social History Tobacco Use [...] on filedocumented in this encounter Care Teams Lather Apprentice Relationship Specialty Start Date End Date Rigo Alvarenga MD [address] [place] [id number] PCP - General INTERNAL MEDICINE 06/19/19 documented as of this encounter
--- OUTSIDE RECORDS SUMMARY | 2024-09-25 07:10 | XMS_ITS | Clinical Summary ---
Author Organization [facility] Address [address] [place] [address] Care Team Providers Care Director Of Kids Name Role Phone Rigo Alvarenga MD Primary Care Provider [phone] Allergies No known active allergies Medications tacrolimus [...] PM CD T Height 170.2 cm (5' 7) 06/19/2019 4:37 PM CDT Body Mass Index 29.01 06/19/2019 4:37 PM CDT Plan of Treatment Health Maintenance Due Date Last Done Comments Colorectal Cancer Screening Colonoscopy (10 Years) 1961 Annual Physical 1964 COVID-19 Vaccine (#1) 1966 Hepatitis C 08/14/1979 DTaP, Tdap and Td Vaccines ( 1 - Tdap) 1980 Pneumococcal Vaccine: 50+ Ye ars (1 of 2 - PCV) 1980 Zoster Vaccines (1 of 2) 1980 RSV Immunization or 60+ Years (1 - Risk 60-74 years 1-dose series) 2021 Meningococcal B Vaccine Aged Out No l onger eligible based on patient's age to complete this topic Meningococcal Vaccine Aged Out No francy madai eligible based on patient's age to complete this topic RSV Immunizations Under 20 Months Aged Out No longer eligible based on patient's age to complete this topic Insurance MEDICARE [facility]IC[facility] [address] Care Teams Director Of Kids Relationship Specialty Start Date End Date Rigo Alvarenga MD [address] [place] [address] PCP - General INTERNAL MEDICINE 06/19/19
[2024-09-25 07:49] LABS: Hematocrit 46.2 % (40.0-54.0); Hemoglobin 15.4 g/dL (14.0-18.0); Immature Granulocyte Percent A 0.2 % (0.0-0.0); Lymphocytes Absolute Auto 1.02 K/mm3 (1.10-4.50); Mean Corpuscular HGB Conc 33.3 g/dL (32-36); Mean Corpuscular Hemoglobin 29.5 pg (27.0-31.0); Mean Corpuscular Volume 88.5 fL (78.0-102.0); Nucleated Red Blood Cells Absolute Auto 0.00 K/mm3 (0.00-0.00); Nucleated Red Blood Cells Perc 0.0 % (0-0.0); Platelet Count Result 169 K/mm3 (150-420); Red Blood Count 5.22 M/mm3 (4.70-6.10); White Blood Count 5.4 K/mm3 (4.8-10.8)
[2024-09-25 08:14] LABS: Albumin Level 4.3 g/dL (3.5-5.1); Anion Gap 6 mmol/L (4-12); Blood Urea Nitrogen 22 mg/dL (9-20); Calcium 10.2 mg/dL (8.4-10.2); Carbon Dioxide 26 mmol/L (22-30); Chloride 109 mmol/L (98-107); Cholesterol 135 mg/dL (0-200); Estimated Glomerular Filt Rate 45; Glucose 120 mg/dL (65-110); HDL Direct 42 mg/dL; Osmolality Calculated 296 mOsm/kg (285-295); Potassium 4.3 mmol/L (3.4-5.0); Sodium 141 mmol/L (137-145); Triglycerides 203 mg/dL (<150)
[2024-09-25 08:35] LABS: Total Protein Urine Random 80 mg/dL; Ur Ttl Prot Creatinine Ratio 0.80 mg/mg (0-0.20)
[2024-09-28 04:07] LABS: Tacrolimus (FK506), Blood 2.7 ng/mL (5.0-20.0)
== END 2024-09-25 07:03 | disposition home or self-care (01) ==
LOC: CHSLAB 07:08
PROVIDERS: PCP Internal Medicine
DX: E78.5 Hyperlipidemia, unspecified (principal); E10.65 Type 1 diabetes mellitus with hyperglycemia; Z79.899 Other long term (current) drug therapy; Z94.0 Kidney transplant status
CPT/HCPCS: 36415; 80061; 80069; 80197; 82570; 84156; 85025

== ENCOUNTER 2024-10-11 16:09 | Outpatient (RCR) | payer MEDICARE, SELFPAY ==
--- NOTE | 2024-10-11 16:58 | OPREHPOC ---
Outpatient Therapy Plan of Care This is a Multidisciplinary Plan of Care that may contain components documented by all disciplines (PT, OT, and ST.) PT Problem 1 PT Problem #1 Knowledge Deficit PT Goal 1 Goal / Goal Update independent and compliant with HEP Target Visit 6 PT Problem 2 PT Problem #2 Pain PT Goal 1 Goal / Goal Update decreased pain at worst to 2/10 or less in the L shoulder Target Visit 12 PT Problem 3 PT Problem #3 Impaired Range of Motion PT Goal 1 Goal / Goal Update 150 degrees active L shoulder flex functional L shoulder ER to the shirt collar functional L shoulder IR to the lumbar spine Target Visit 12 PT Problem 4 PT Problem #4 Impaired Strength PT Goal 1 Goal / Goal Update no pain with mmt of the L shoulder Target Visit 12 PT Problem 5 PT Problem #5 Impaired Safety Awareness PT Goal 1 Goal / Goal Update patient to comfortably sleep through the night 4 nights a week or more quick dash to display 10% or less functional deficits patient to lift 20lb med ball from waist level to shoulder level shelf without pain Target Visit 12
--- NOTE | 2024-10-11 16:58 | PTOPEVAL1 ---
Assessment and note entered by JT File, PT Evaluation Information Assessment Status Evaluation ICD-10 Condition Codes (PT) Pain in left shoulder M25.512 Onset 09/10/24 Subjective Information patient reports he has a graft in his L biceps from his dialysis. he is no longer on dialysis. he reports he was set to follow up with the team that placed the graft, but ended up cancelling due to it feeling better. however, he reports it is now bothering him again. he reports there was nothing seen on the diagnostic US of the area. he reports the L arm hurts all around the front, back , outside, and inside of the L upper arm (mid brachial region). he reports he has had no xrays. he reports no falls or injury. he reports driving makes it worse to turn the steering wheel, lifting the L arm, and lifting objects with the L UE. Reported Pain Level Pain Score 3: Self Report Assessment PT Clinical Summary mr. miles presents to skilled PT services for evaluation and treatment of L shoulder pain. today , he displays deficits in L shoulder active/ passive rom, tenderness to palpation of the L shoulder, and pain with IR positions. he displays positive RTC special tests and impingement special tests today. continued skilled PT is indicated to improve his objective/functional deficits and progress towards a return to his prior level functional activity performance/quality of life. Plan of Care Interventions Electrical Stimulation,Hot Pack/Cold Pack,Manual Therapy,Neuro Re-education,Patient/Caregiver Education,Therapeutic Activities,Therapeutic Exercise PT Services Indicated Yes Treatment Frequency and 3x weekly for 12 visits Duration These treatments will address the objective and functional deficits as defined above. The patient will be advanced safely and appropriately in order for the patient to progress towards his/her prior level of function. Additional exercises will be introduced and as well as a comprehensive home exercise program upon discharge, if needed, ?to ensure carryover of functional gains achieved in the clinic. This treatment plan has been reviewed and agreement upon by the patient.
== END 2024-10-13 20:00 | disposition home or self-care (01) ==
LOC: CHSPT 16:09
PROVIDERS: PCP Nurse Practitioner Family; Visit Provider Nurse Practitioner Family
DX: M79.622 Pain in left upper arm (principal); M25.512 Pain in left shoulder
CPT/HCPCS: 97014; 97110; 97161; G0283

== ENCOUNTER 2024-10-17 15:51 | Outpatient (CLI) | payer MEDICARE, SELFPAY ==
--- NOTE | ~2024-10-17 | XR_ITS ---
EXAM/ PROCEDURE: XR humerus LT - 10/17/2024 16:00 CDT HISTORY: 64 years old Male with FX 30 yrs ago, bone graft 7 yrs ago, upper LT arm pain COMPARISON: None available TECHNIQUE: Three view(s) FINDINGS/ IMPRESSION: Healing chronic fracture of the left mid humerus with lateral angulation. Vascular stent and graft seen. Atherosclerotic calcifications seen. Soft tissue appears unremarkable. Joint space narrowing, subchondral sclerosis, subchondral cyst formation and osteophyte formation, compatible with mild osteoarthritis. Reviewed, dictated and finalized at location N.
--- OUTSIDE RECORDS SUMMARY | 2024-10-17 15:55 | XMS_ITS | Encounter Summary ---
Author Organization [facility] Address [address] [place] [address] Phone Care Team Providers Care Forestry Farm Laborer Name Role Phone Rigo Alvarenga MD Primary Care Provider [phone] Rand Collins RN Unavailable [phone] Felipe Foss MD Unavailable [phone] Encounter Details Date Type Department Care Team (Latest Contact Info) Description 06/26/2022 Orders Only [facility] Scanning, Provider Social History Tobacco Use Types Packs/Day Years Used Date Smoking Tobacco: Never Smokeless Tobacco: Never Alcohol Use Standard Drinks/Week Comments No 0 (1 standard drink = 0.6 oz pur e alcohol) Social Connection and Isolation Panel Answer Date Recorded In a typical week, how many times do you talk on the phone with family, friends, or neighbors? Three times a week 05/31/2019 How often do you get togethe r with friends or relatives? Three times a week 05/31/2019 How often do you attend chur ch or restorationism services? More than 4 times per year 05/31/2019 Do you belong to any clubs o r organizations such as bahai groups, unions, fraternal or athletic groups, or [...] on file Legal Sex Male 12:49 PM QUALITY ASSURANCE NURSE Gender Identity Not on file Sexual Orientation [...] on filedocumented in this encounter Care Teams Forestry Farm Laborer Relationship Specialty Start Date End Date Rigo Alvarenga MD PCP - General 03/31/17 Rand Collins, RN [address] [facility] [address] [place] [address] Staff Antisubmarine Officer 05/31/19 Felipe Foss MD [address] [place] [address] Medical Oncologist/Fish House Worker Hematology and Oncology 01/04/23 documented as of this encounter
--- OUTSIDE RECORDS SUMMARY | 2024-10-17 15:55 | XMS_ITS | Encounter Summary ---
Author Organization [facility] Address [address] [place] [address] Phone Care Team Providers Care Skid Strapper Name Role Phone Rigo Alvarenga MD Primary Care Provider Ag Malcolm MD Primary Care Provider [phone] Rigo Alvarenga MD Primary Care Provider Ag Malcolm MD Primary Care Provider Rigo Alvarenga MD Primary Care Provider Ag Malcolm MD Primary Care Provider Ag Malcolm MD Primary Care Provider Rigo Alvarenga MD Primary Care Provider Malgorzata Edwards RN Unavailable [phone] Marguerite Carson Unavailable Unavail able Tamy Arcos RN Unavailable Chase Durbin MD Unavailable Pavithra Tavarez RN Unavailable [phone] Rand Collins RN Unavailable [phone] Felipe Foss MD Unavailable [phone] Encounter Details Date Type Department Care Team (Latest Contact Info) Description 12/04/2016 Orders Only [facility] CON[facility] Scanning, Provider Social History Tobacco Use Types Packs/Day Years Used Date Smoking Tobacco: Never Sex and Gender Information Value Date Recorded Sex Assigned at Not on file Legal Sex Male 12:49 PM COMMERCIAL ATTACHE Gender Identity Not on file Sexual Orientation [...] documented as of this encounter Care Teams Skid Strapper Relationship Specialty Start Date End Date Rigo Alvarenga MD PCP - General 12/02/16 12/15/16 Ag Malcolm MD [address] [place] [address] PCP - General 12/16/16 12/18/16 Rigo Alvarenga MD PCP - General 12/19/16 02/25/17 Ag Malcolm MD [address] [place] [address] PCP - General 02/26/17 03/04/17 Rigo Alvarenga MD PCP - General 03/05/17 03/24/17 Ag Malcolm MD [address] [place] [address] PCP - General 03/30/17 03/30/17 Ag Malcolm MD [address] [place] [address] PCP - General 03/25/17 03/29/17 Rigo Alvarenga MD PCP - General 03/31/17 Malgorzata Edwards, RN [address] [address] Clinical Data Management Director 07/13/17 Marguerite Moise Clinical Data Management Director 07/23/17 08/10/17 Tamy Arcos RN [address] [address] Clinical Data Management Director 08/11/17 Chase Durbin MD [address] [facility] [address] [place] [address] It Architecture Consultant Nephrology 03/23/19 11/23/19 Pavithra Tavarez, FLORES [address] [facility] [address] [place] [address] Clinical Data Management Director 03/30/19 0 Rand Collins RN [address] [facility] [address] [place] [address] Clinical Data Management Director 05/31/19 Felipe Foss MD [address] [place] [address] Medical Oncologist/Plastics Technician Hematology and Oncology 01/04/23 documented as of this encounter
--- OUTSIDE RECORDS SUMMARY | 2024-10-17 15:55 | XMS_ITS | Encounter Summary ---
Author Organization [facility] Address [address] [place] [address] Care Team Providers Care Health Professor Name Role Phone Rigo Alvarenga MD Primary Care Provider [phone] Rand Collins RN Unavailable [phone] Felipe Foss MD Unavailable [phone] Encounter Details Date Type Department Care Team (Late st Contact Info) Description 12/04/2022 Telephone [facility] [address] [facility] [address] [place] [address] Rigo Alvarenga MD [address] [place] [address] Social History Tobacco Use Types [...] often do you attend chur ch or catholic services? More than 4 times per year 09/29/2022 Do you belong to any clubs o r organizations such as restorationism groups, unions, fraternal or athletic groups, or [...] a group home (including now)? No 09/29/2022 Sex and Gender Information Value Date Recorded Sex Assigned at Not on file Legal Sex Male 12:49 PM SPECIAL SYSTEMS TECHNICIAN Gender Identity Not on file Sexual Orientation Not on file documented as of this encounter Plan of Treatment Not on file documented as of this encounter Visit Diagnoses Not on filedocumented in this encounter Care Teams Health Professor Relationship Specialty Start Date End Date Rigo Alvarenga MD PCP - General 03/31/17 Rand Collins, FLORES [address] [facility] [address] [place] [address] Shade Cloth Finisher 05/31/19 Felipe Foss MD [address] [place] [address] Medical Oncologist/Electric Truck Driver Hematology and Oncology 01/04/23 documented as of this encounter
--- OUTSIDE RECORDS SUMMARY | 2024-10-17 15:55 | XMS_ITS | Clinical Summary ---
Author Organization [facility] Address [address] [place] [address] Care Team Providers Care Cancer Registry Coordinator Name Role Phone Rigo Alvarenga MD Primary Care Provider [phone] Allergies Active Allergy Reactions Criticality Noted Date Comments Codeine Cough Low 11/20/2015 Duloxetine Hallucinations,Diarrhea Medium 10/26/2012 Lisinopril Cough Medium 11/06/2009 Prednisone Rash Medium 05/16/2010 Acne-like pimples, all over Medications tamsulosin (FLOMAX) 0.4 MG capsule Take 0.4 mg by mouth daily. Active aspirin 81 MG EC tablet TAKE 1 TABLET BY MOUTH DAILY 3 8 Active pantoprazole (PROTONIX) 40 MG tablet Take 40 mg by mouth 2 times daily 99 9 Active ENVARSUS XR 1 MG TB24 5 mg 0 Active mycophenolate (MYFORTIC) 360 MG TBEC tablet EC TK 2 TS PO BID 0 Active linagliptin (TRADJENTA) 5 MG tablet Take 5 mg by mouth daily Active atorvaSTATin (LIPITOR) 20 MG tablet Take 20 mg by mouth daily 0 Active carvedilol (COREG) 25 MG tablet Take 25 mg by mouth 2 times daily (with meals) 0 Active hydrALAZINE (APRESOLINE) 25 MG tablet Take 75 mg by mouth Active BASAGLAR KWIKPEN 100 UNIT/ML SOPN Pen INJECT 10 UNITS SUBCUTANEOUSLY AT BEDTIME 0 Active predniSONE (DELTASONE) 5 MG tablet Take 5 mg by mouth daily 0 Active allopurinol (ZYLOPRIM) 300 MG tablet Take 300 mg by mouth daily 2 Active Blood Glucose Monitoring Suppl (Integrata SecurityUCH VERIO FLEX SYSTEM) w/Device KIT USE TO CHECK BLOOD SUGAR 4 TIMES PER DAY 2 Active Continuous Blood Gluc Delivery Driver (FREESTYLE SHAGUFTA 2 READER) SUSANNAH Scan to check blood sugar at least every 6-8 hours. Keep close from sensor to receive alerts. 2 Active ONETOUCH VERIO strip CHECK BLOOD SUGAR 3 TIMES PER DAY 2 Active NOVOLOG FLEXPEN 100 UNIT/ML SOPN Pen INJECT 7 UNITS UNDER THE SKIN BEFORE MEALS 2 Active RYBELSUS 3 MG TABS Take 1 tablet by mouth daily 2 Active Blood Gluc Meter Disp-Strips ([employer] BLOOD GLUCOSE SYSTEM) SUSANNAH Use as directed. 2 Active BD PEN NEEDLE JOSUÉ 2ND GEN 32G X 4 MM MISC USES WITH INSULIN 4 TIMES DAILY DX E11.9 2 Active Lancets (Eurocept DELICA PLUS [id number]) MISC USE TO CHECK BLOOD SUGAR 3 TIMES PER DAY 2 Active Active Problems Problem Noted Date Diagnosed Date Encounter for [facility] use of mycophenolate mof etil 02/21/2020 Idiopathic peripheral neuropathy 02/21/2020 BPH (benign prostatic hyperplasia) 06/20/2019 Overview (08/26/2020): Last Assessment & Plan: Continue home flomax Hyperkalemia 06/20/2019 Overview (08/26/2020): Last Assessment & Plan: Patient s/p renal transplant 05/29, admitted after monitoring labs showed K 6.4 in setting of starting potassium supplementaion about 1 week prior w/ 20 meq daily -at OSH reportedly K 7.0, given calcium gluconate, insulin, and kayaxelate -upon arrival to [facility], K 6.0, WBK 5.6 no additional therapies given -Repeat K and WBK on arrival, manage as appropriate -likely transfer to floor later this morning -renal transplant consult in AM -hold bactrim for time being as could be contributing to hyperkalemia, resume pending [facility] neph[facility] recs [facility]) Delayed renal graft function 05/31/2019 Anemia in chronic kidney disease, on chronic christa lysis 09/01/2017 ABELARDO (renal osteodystrophy) 09/01/2017 Reactive perforating collagenosis 07/06/2017 Acute bilateral low back pain without sciatica 0 06/22/2017 Obesity with body mass index 30 or greater 05/07 Rotator cuff impingement syndrome of left should er 09/03/2016 skilled nursing current use of systemic steroids 09/03 Plantar fasciitis of left foot 09/03/2016 Pes planus of both feet 09/03/2016 Pain in joint 09/30/2014 Inflammatory polyarthritis 01/22/2014 Gouty arthritis 01/25/2012 Ankle pain 05/19/2011 Focal and segmental proliferative glomerulonephr itis 05/19/2011 High risk medication use 01/21/2011 Hip pain 11/17/2010 History of renal transplant 11/17/2010 Encounter for monitoring tacrolimus therapy 04/2010 Positive LILIBETH (antinuclear antibody) 11/17/2010 Diabetes mellitus 09/10/2010 Overview (06/26/2021): Last Assessment & Plan: Home regimen: lnatus 15 units daily, lispro 5 units w/ meals, linagliptin 5 mg daily -inpatient regimen: lantus 12, lispro 3 w/ meals +LDSSI Osteoarthritis, knee 01/01/2010 Systemic lupus erythematosus (SLE) in adult 10/17 Gout 11/06/2009 Monoclonal gammopathy of unknown significance Hypertension 11/06/2009 Cervical spondylosis 11/06/2009 Lymphadenopathy, cervical 11/06/2009 Acne 11/06/2009 Resolved Problems Problem Noted Date Diagnosed Date Resolved Date End stage renal disease on dialysis 11/06/2009 11/17/2010 Continuous ambulatory perito nathaniel dialysis status 11/06/2009 11/17/2010 Overview (12/24/2015): IMO Regulatory Update R1-2017 Immunizations Immunization Administration Dates Next Due Covid-19 28 Day Interval Moderna 05/17/2020,06/2020 Influenza Split Virus 12/05/2015, 015,12/30/2013,2012 Influenza Split Virus Preser vative Free 02/15/2009 Influenza, Seasonal Vaccine 11/15/2020 Family History Medical History Relation Name Comments Heart Disease Father High Blood Pressure Father Other (See Comments) Father age 65 heart problems Diabetes Mother Heart Disease Mother High Blood Pressure Mother Other (See Comments) Mother age 58 heart problems Cancer Sister Diabetes Sister High Blood Pressure Sister Relation Name Status Comments Father Mother Sister Alive Social History Tobacco Use Types Packs/Day Years Used Date Smoking Tobacco: Former Smokeless Tobacco: Never Tobacco Cessation:Counseling Given: Yes Alcohol Use Standard Drinks/Week Comments No 0 (1 standard drink = 0.6 oz pur e alcohol) Alcohol Use Answer Date Recorded Frequency of Alcohol Consumption Not on file 08/01/2023 Average Number of Drinks Not on file 024 Frequency of Binge Drinking Not on file 07/16 Alcohol Use Status No 08/01/2023 Average alcohol consumption Not on file 07/16 Sex and Gender Information Value Date Recorded Sex Assigned at Not on file 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 Gender Identity Not on file Sexual Orientation Not on file 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 Not on file Not on file Not on file Last Filed Vital Signs Vital Sign Reading Time Taken Comments Blood Pressure 145/65 06/26/2021 10:06 AM CDT Pulse 79 06/26/2021 10:06 AM CDT Temperature 36.7 C (98 F) 02/21/2020 11:06 AM STRETCH PRESS 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 Respiratory Rate - - Oxygen Saturation 98% 06/26/2021 10:06 AM CDT Inhaled Oxygen Concentration - - Weight 83.6 kg (184 lb 3.2 oz) 06/26/2021 10:06 AM CDT Height 170.2 cm (5' 7) 06/26/2021 10:06 AM CDT Body Mass Index 28.85 06/26/2021 10:06 AM CDT Plan of Treatment Health Maintenance Due Date Last Done Comments DIABETIC FOOT EXAM 1961 Diabetes follow-up every 6 months by HEMOGLOBIN A1C 1961 Diabetic Eye Exam 1961 HIV Screening 1961 Hepatitis C Screening ages 18 to 79 once 1961 LIPID TESTING 1961 URINARY MICROALBUMIN IN DIABETES 1961 MMR VACCINES (1 of 1 - Standard series) 1962 YEARLY WELLNESS EXAM 1964 DEPRESSION SCREENING 1973 ADULT TETANUS 1980 Pneumococcal Vaccine: Peds to 50 & At-Risk Patients (1 of 2 - PCV) 1980 Zoster Vaccine (Recombinant Vaccine) (1 of 2) 1980 Colon Cancer Screening 2006 COVID-19 Immunization (3 - Moderna risk series) 06/14/2020 05/17/2020, 04/19/2020 RSV Vaccines (1 - Risk 60-74 years 1-dose series) 2021 Influenza Vaccine 09/15/2024 11/15/2020, , 11/15/2014, Additional history exists HEPATITIS A VACCINES Aged Out No long er eligible based on patient's age to complete this topic HEPATITIS B VACCINES Aged Out No long er eligible based on patient's age to complete this topic HIB VACCINES Aged Out No longer eligi ble based on patient's age to complete this topic HPV VACCINES Aged Out No longer eligi ble based on patient's age to complete this topic IPV VACCINES Aged Out No longer eligi ble based on patient's age to complete this topic MENINGOCOCCAL VACCINE Aged Out No francy madai eligible based on patient's age to complete this topic Meningococcal B Vaccine Aged Out No l onger eligible based on patient's age to complete this topic ROTAVIRUS VACCINES Aged Out No longer eligible based on patient's age to complete this topic Insurance MEDICARE ANTHEM/BCBS MEDICARE ANTHEM/BCBS [facility] Care Teams Cancer Registry Coordinator Relationship Specialty Start Date End Date Rigo Alvarenga MD [address] [place] [id number] PCP - General Internal Medicine 09/07/16
--- OUTSIDE RECORDS SUMMARY | 2024-10-17 15:55 | XMS_ITS | Clinical Summary ---
Author Organization [facility] Address [address] [place] [address] Care Team Providers Care Product Ambassador Name Role Phone Rigo Alvarenga MD Primary Care Provider [phone] Allergies No known active allergies Medications tacrolimus [...] complete this topic Insurance MEDICARE [facility] [address] Care Teams Product Ambassador Relationship Specialty Start Date End Date Rigo Alvarenga MD [address] [place] [address] PCP - General INTERNAL MEDICINE 06/19/19
--- OUTSIDE RECORDS SUMMARY | 2024-10-17 15:56 | XMS_ITS | Encounter Summary ---
Author Organization [facility] Address [address] [place] [address] Phone Care Team Providers Care Seed Production Field Supervisor Name Role Phone Rigo Alvarenga MD Primary Care Provider [phone] Malgorzata Edwards RN Unavailable [phone] Marguerite Carson Unavailable Unavail able Tamy Arcos RN Unavailable [phone] Chase Durbin MD Unavailable [phone] Pavithra Tavarez RN Unavailable [phone] Rand Collins RN Unavailable [phone] Felipe Foss MD Unavailable [phone] Encounter Details Date Type Department Care Team (Latest Contact Info) Description 04/01/2017 Orders Only [facility] CONVERSION Scanning, Provider Social History Tobacco Use Types Packs/Day Years Used Date Smoking Tobacco: Never Sex and Gender Information Value Date Recorded Sex Assigned at Not on file Legal Sex Male 12:49 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 Gender Identity Not on file Sexual Orientation Not on file documented as of this encounter Plan of Treatment Not on file documented as of this encounter Procedures Procedure Name Priority Date/Time Associated Diagnosis Comments VASCULAR LABORATORY REPORT 04/01/2017 11:02 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 documented in this encounter Results * VASCULAR LABORATORY REPORT (04/01/2017 11:02 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) Anatomical Region Laterality Modality Ultrasound us Provider [...] documented as of this encounter Care Teams Seed Production Field Supervisor Relationship Specialty Start Date End Date Rigo Alvarenga MD PCP - General 03/31/17 Malgorzata Edwards RN [address] [address] Cake Batter Mixer 07/13/17 8 Marguerite Carson Cake Batter Mixer 07/23/17 08/10/17 Tamy Arcos RN [address] [address] Cake Batter Mixer 08/11/17 Chase Durbin MD [address] [facility] [address] [place] [address] Medical Engineer Nephrology 03/23/19 11/23/19 Pavithra Tavarez RN [address] [address] Cake Batter Mixer 03/30/19 0 Rand Collins RN [address] [address] Cake Batter Mixer 05/31/19 Felipe Foss MD [address] [place] [address] Medical Oncologist/Deputy Director Of Public Works Hematology and Oncology 01/04/23 documented as of this encounter
--- OUTSIDE RECORDS SUMMARY | 2024-10-17 15:56 | XMS_ITS | Clinical Summary ---
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 wall mining machine tender insulin use (HCC) Use to read missy 3 sensor 1 each 01/01/20 23 Active cholecalciferol (VITAMIN D-3) 2000 unit tabletIndicatio ns:Prevention of Vitamin D Deficiency Take 0.5 tablets (1,000 Units total) by mouth every morning Active FreeStyle Missy 3 [place] misc as directed Sugars have been way offwith sensor so is also sticking himself (using blood glucose meter) 12/26/[address] (PROTONIX) 40 mg EC tablet Take 1 tablet (40 mg total) by mouth every morning 01/16/20 23 Active acetaminophen (TYLENOL) 500 mg tablet Take 1 tablet (500 mg total) by mouth every 6 (six) hours 90 tablet 03/26/19 24 Active glucagon (Gvoke HypoPen 2-Pack) 1 mg/0.2 mL auto-injectorIn dications:Type 2 diabetes mellitus with other specified complication, unspecified whether care home insulin use (HCC) Inject 1 mg under the skin as needed (as needed for severe hypoglycemia ) 0.4 mL 6 06/07/19 24 Active pyridoxine (VITAMIN B-6) 100 mg tablet Take 1 tablet (100 mg total) by mouth daily Active gabapentin (NEURONTIN) 300 mg capsuleIndicati ons:Neuropathic Pain Take 1 capsule (300 mg total) by mouth 2 (two) times a day 60 capsule 11 12/15/19 24 Active carvediloL (COREG) 3.125 mg tablet Take 1 tablet (3.125 mg total) by mouth 2 (two) times a day with meals 60 tablet 11 12/20/19 24 025 Active predniSONE (DELTASONE) 5 mg tablet TAKE 1 TABLET (5 MG) BY MOUTH DAILY DX CODE Z94.0 90 tablet 3 12/22/19 24 Active losartan (COZAAR) 50 mg tablet Take 2 tablets (100 mg total) by mouth daily 90 tablet 3 01/05/20 24 Active Jardiance 10 mg tabletIndicatio ns:Type 2 diabetes mellitus with other specified complication, unspecified whether long wall mining machine tender insulin use (HCC) TAKE 1 TABLET BY MOUTH EVERY DAY 90 tablet 3 02/14/20 24 Active amLODIPine (NORVASC) 10 mg tablet Take 1 tablet (10 mg total) by mouth daily 30 tablet 11 04/26/19 25 026 Active allopurinoL (ZYLOPRIM) 100 mg tablet TAKE 1 TABLET BY MOUTH EVERY DAY 90 tablet 06/08/19 25 Active OneTouch Verio test strips stripIndication s:Type 2 diabetes mellitus with other specified complication, unspecified whether long wall mining machine tender insulin use (HCC) CHECK BLOOD SUGAR 3 TIMES A DAY 100 strip 06/24/19 25 Active aspirin 81 mg enteric coated tabletIndicatio ns:Kidney replaced by transplant TAKE 1 TABLET BY MOUTH EVERY DAY 90 tablet 3 06/30/19 25 Active bumetanide (BUMEX) 0.5 mg tablet Take 2 tablets (1 mg total) by mouth 2 (two) times a day 60 tablet 08/01/19 25 Active tirzepatide (Mounjaro) 12.5 mg/0.5 mL pen injector injectionIndica tions:Type 2 diabetes mellitus with other specified complication, unspecified whether long wall mining machine tender insulin use (HCC) Inject 0.5 mL (12.5 mg total) under the skin every 7 days 2 mL 08/24/19 25 Active tamsulosin (FLOMAX) 0.4 mg extended release capsuleIndicati ons:Kidney replaced by transplant TAKE 1 CAPSULE BY MOUTH TWICE A DAY 180 capsule 1 08/25/19 25 Active FreeStyle Missy 3 Sensor deviceIndicatio ns:Type 2 diabetes mellitus with other specified complication, unspecified whether care home insulin use (HCC) Use the missy 3 plus sensor to check blood sugar before meals and at bed time and as needed 6 each 09/13/19 25 Active clotrimazole-be tamethasone (LOTRISONE) cream Apply topically 09/19/19 25 Active lancets (OneTouch Delica Plus Lancet) 30 gauge miscIndications :Type 2 diabetes mellitus with other specified complication, unspecified whether long wall mining machine tender insulin use (HCC) USE TO CHECK BLOOD SUGAR 3 TIMES PER DAY 100 each 10/04/19 25 Active tacrolimus XR (ENVARSUS XR) 0.75 mg tablet extended release 24 hrIndications:P revention of Kidney Transplant Rejection Take 3 tablets (2.25 mg total) by mouth daily 270 tablet 3 10/05/19 25 026 Active lancets (OneTouch Delica Plus Lancet) 30 gauge miscIndications :Type 2 diabetes mellitus with other specified complication, unspecified whether long wall mining machine tender insulin use (HCC) USE TO CHECK BLOOD SUGAR 3 TIMES PER DAY 100 each 11 09/08/19 025 Discontinued tacrolimus XR (ENVARSUS XR) 0.75 mg tablet extended release 24 hrIndications:P revention of Kidney Transplant Rejection Take 2 tablets (1.5 mg total) by mouth daily 180 tablet 3 01/07/20 24 025 Discontinued sodium phosphate - potassium phosphate (K-PHOS NEUTRAL) 250 mg tablet Take 1 tablet (250 mg total) by mouth 2 (two) times a day before breakfast and lunch 180 tablet 2 04/05/19 025 Discontinued(Carlton ojeda Reported) Active Problems Patient Care Coordination No te Formatting of this note migh t be different from the original. Per Dr. Limon, FK goal 2-4 d/t receiving treatment for MM on Envarsus 1mg Discharge Preferences: Lab: [facility] , [phone] standing orders q Monthly, FK,UPE, q3 HgbA1C Exp. 03/28/25 Home Health: [facility] /[phone] Local Pharmacy: [facility] in [place] [facility]: [facility] Problem Noted Date Diagnosed [...] cardiology follow up. Discussed plan with attending chef broiler or fry. HEATHER on CPAP 09/25/2022 Assessment & Plan [...] further with Dr. Yu. Will proceed with [facility] to better assess volume status and pulmonary hypertension to assist with diuretic management and treatment. Lab results and plan were discussed with patient and he was agreeable. Other fatigue 08/21/2022 Diastolic heart failure 07/17/2022 Assessment & Plan (09/26/2024 9:01 AM CDT): Diastolic heart failure with concern for infiltrative cardiomyopathy. Has since underwent an endomyocardial biopsy that was negative for amyloid. He is euvolemic upon examination today endorsing NYHA class 1 symptoms. Continue Bumex and Jardiance. Assessment & Plan (08/26/2023 10:01 PM CDT): [...] (04/30/2022): Added automatically from request for surgery [id number] Encounter for preadmission testing 04/24/2022 LAYO (acute kidney injury) 04/24/2022 Dyslipidemia 10/22/2021 Assessment & Plan (09/26/2024 9:00 AM CDT): Well-controlled on most recent labs from November of 2023. Continue current regimen with atorvastatin 20 mg daily. Assessment & Plan (08/26/2023 10:01 PM CDT): [...] gluconate, insulin, and kayaxelate -upon arrival to [facility] ED, K 6.0, WBK 5.6 no additional therapies given -Repeat K and WBK on arrival, manage as appropriate -likely transfer to floor later this morning -renal transplant consult in AM -hold bactrim for time being as could be contributing to hyperkalemia, resume pending transplant nephrology recs ([facility] medication) BPH (benign prostatic hyperplasia) 06/20/2019 Assessment & Plan (06/20/2019 4:45 AM CDT): Continue home flomax Kidney transplant recipient 05/31/2019 Assessment & Plan (09/21/2022 10:01 AM CDT): -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 Continue regimen with amlodipine 10 mg daily, carvedilol 3.125 mg b.i.d. and losartan 100 mg daily. Assessment & Plan (08/26/2023 10:00 PM CDT): [...] (11/18/2017): Added automatically from request for surgery [id number] Peritoneal dialysis catheter tunnel infection 10/28/19 18 09/12/2018 Overview (10/27/2017): Added automatically from request for surgery [id number] End-stage renal disease on hemodialysis 10/07/2017 05/10/2018 Overview (10/07/2017): Added automatically from request for surgery [id number] Stage 4 chronic kidney disease 01/16/2015 05/10/2018 Encounter for monitoring tacrolimus therapy 11/17/2010 09/12/2018 Encounters Date Type Department Care Team Description 10/11/2024 Telephone [facility] [address] [address] [place] [address] Ace Payan MD 10/11/2024 Orders Only [facility] Transplant Kidney [address] Mailstop [phone] [place] [address] Rand Collins RN Kidney replaced by transplant (Primary Dx) 10/04/2024 10:30 AM CDT Office Visit [facility] [address] 5[address] [place] [address] [place] [address] Rossana Limon MD Encounter for aftercare following kidney transplant (Primary Dx); Encounter for long-term (current) use of high-risk medication; Dyslipidemia; Hypertension, unspecified type; Renal osteodystrophy; Kidney replaced by transplant; Multiple myeloma in remission (HCC) 09/26/2024 8:00 AM CDT Office [facility] [address] [facility] [address] [place] [address] [place] [address] Suhail Monet NP Chronic diastolic heart failure (HCC) (Primary Dx); Primary hypertension; Dyslipidemia 08/23/2024 11:00 AM CDT Office [facility] Metabolism and Lipid [address] [facility] [address]th [place] [address] [place] [address] Brian Ambrose MD Type 2 diabetes mellitus with other specified complication, unspecified whether care home insulin use (HCC) (Primary Dx); Obesity with body mass index 30 or greater; Other hyperlipidemia; Vitamin D deficiency 08/21/2024 Telephone [facility] [address] [facility] [address] [place] [address] Ace Payan MD 08/14/2024 Telephone [facility] [address] [facility] [address] [place] [address] Ace Payan MD 08/14/2024 Telephone [facility] Transplant Kidney [address] Mailstop [phone] [place] [address] Rand Collins RN 07/31/2024 Telephone [facility] [address] [address]th [place] [address] [place] [address] Suhail Monet, WARD CLERK Med Management 07/28/2024 Lab [facility] Transplant Kidney [address] [facility] Mailstop [phone] [place] [address] Arturo Garcia MD 07/27/2024 Telephone [facility] Met[facility] and Lipid [address] 5th [place] [address] [place] [address] Isis Harper RN GMI on missy 3 07/26/2024 Telephone [facility] Transplant Kidney [address] Mailstop [phone] [place] [address] Rand Collins RN 07/25/2024 Results Follow-Up [facility] Transplant Kidney [address] Mailstop [phone] [place] [address] Rand Collins RN Protein / creatinine ratio, urine, random, CBC with auto differential, Renal function panel 07/24/2024 Telephone [facility] Surgery [address] [facility] Floor [address] [place] [address] Ace Payan MD from Last 3 Months Immunizations Immunization Administration Dates Next Due Influenza, Trivalent, IM (MDV) 7,12/05/2015,11/15/2014,12/30,10/30/2012 Influenza, Trivalent, Preser vative Free, Intramuscular 02/15/2009 Influenza, Unspecified 11/15/2020 Moderna SARS-CoV-2 Monovalen t Vaccination (12+ YRS) 05/17/2020,04/19/2020 Respiratory Syncytial Virus (Rsv) Mab, Unspecified 05/15/2024 Surgical History Surgery Date Site/Laterality Comments PERITONEAL CATHETER INSERTION TUNNELED 11/11/2015 N/A Removed 2017 AR BRNCHSC INCL FLUOR GDNCE DX W/CELL WASHG [...] reflux disease) ESRD (end stage renal disease) s /p PD 8376-9072, HD 6440-2280 and kidney tx 2010 & 2019 Gout History of peritoneal dialysis 2 016-2017 Arthritis Sleep apnea Uses CPAP grabiel e nightly Hard to intubate 11/01/2017 subsequent thro at pain, right gland pain and bit upper lip; No documented difficulty with most recent surgery 05/2019 Acute respiratory failure re quiring reintubation (HCC) Peritoneal dialysis catheter tunnel infection 10/27/2017 Added automatically from req uest for surgery [id number] Diabetes mellitus (HCC) Dxd ~201 1 Heart murmur Multiple myeloma Multiple myelom a dxd ~11/2022-- Treated with Revlimid Heart failure with preserved ejection fraction Per TTE 09/2022-- EF 84% with grade I diastolic dysfunction Pulmonary hypertension (HCC) Per [facility] 09/10/2022-- PA pressure 49/20 mmHg (mean 28 mmHg); PA wedge pressure 13 mmHg; Per TTE 09/29/2022-- PASP 37 mmHg CHF (congestive heart failure) (HCC) Type 2 diabetes mellitus Family History Medical History Relation Name Comments [...] place to sleep or slept in a halfway (including now)? No 09/29/2022 Personal Safety Answer Date Recorded Have you ever been in or are you currently in a harmful physical or emotional relationship or is someone making you feel afraid or unsafe? 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 Gender Identity Not on file Sexual Orientation Not on file Obstetrics History Last Filed Vital Signs Vital Sign Reading Time Taken Comments Blood Pressure 137/75 10/04/2024 11:24 AM CDT Pulse 65 10/04/2024 11:24 AM CDT Temperature 36.7 C (98.1 F) 10/04/2024 11:24 AM CDT Respiratory Rate 18 06/28/2024 10:53 AM CDT Oxygen Saturation 98% 09/26/2024 8:05 AM CDT Inhaled Oxygen Concentration - - Weight 84.8 kg (187 lb) 10/04/2024 11:24 AM CDT Height 170.2 cm (5' 7) 10/04/2024 11:24 AM CDT Body Mass Index 29.29 10/04/2024 11:24 AM CDT Plan of Treatment Health Maintenance [...] 05/07/2021 TSH Level 10/13/2023 10/12/2022, 09/15, 08/21/2022 Prostate Cancer Screening-PSA 09/25/2024, 09/24/2022, 09/24/2022, Additional history exists Influenza Vaccine (#1) 2024 , 10/23/2016, 12/05/2015, Additional history exists Foot Exam 12/14/2024 12/15/2023 Albumin Creatinine Ratio, Urine 02/24/2025 , 02/14/2023 Hemoglobin A1C 02/25/2025 08/25/2024, 07/0 10/2024, 05/25/2024, Additional history exists eGFR 06/28/2025 06/28/2024, 02, 02/25/2024, Additional history exists Lipid Panel 09/25/2025 09/25/2024, 08/15, 05/25/2024, Additional history exists Hepatitis C Screening Completed 05/30/2019 , 12/20/2018, 10/11/2017, Additional history exists Medical Devices Implanted Type Area Cadd Technician Device Identifier Shelf Expiration Date Model / Serial / Lot [employer] Angio-Seal Vip 6fr Closere Device [id number] - [id number] - [id number] Implanted:Qty: 1 on 05/04/2022 by Juan Alston MD at [facility] Vascular Closure Device Left: Femoral [employer] 01/14/2023 [id number] / [id number] / [id number] 2 [employer] [id number] [place] Acuseal 4-7mm 45cm Taper Graft Vascular Sterile - [id number] - [id number] Implanted:Qty: 1 on 11/01/2017 by Ace Payan MD at [facility] Left: Arm [employer] 04/22/2020 [id number] / [id number] / Explanted Type Area Cadd Technician Device Identifier Shelf Expiration Date Model / Serial / Lot [employer] [id number] Universa 6fr 22cm Radiopaque Tip Positioner Roofing Machine Tender Braid - [id number] Implanted:Qty: 1 on 05/30/2019 by Rosario Colbert MD at [facility] Explanted:Qty: 1 on 07/06/2019 by Con Shelby NP Stent Left: Ureter [employer] 08/21/2023 [id number] / / Description:Transplanted ure ter Procedures Procedure Name Priority Date/Time Associated Diagnosis Comments POCT URINALYSIS DIPSTICK Routine 10/04/2024 11:29 AM CDT Encounter for aftercare following kidney transplant TACROLIMUS LEVEL, TROUGH Routine 09/25/2024 PROTEIN / CREATININE RATIO, URINE, RANDOM Routine 09/25/2024 RENAL FUNCTION PANEL Routine 09/25/2024 LIPID PANEL Routine 09/25/2024 CBC WITH AUTO DIFFERENTIAL Routine 09/25/2024 TACROLIMUS LEVEL, TROUGH Routine 08/25/2024 RENAL FUNCTION PANEL Routine 08/25/2024 HEPATIC FUNCTION PANEL Routine 08/25/2024 LIPID PANEL Routine 08/25/2024 HEMOGLOBIN A1C Routine 08/25/2024 CBC WITH AUTO DIFFERENTIAL Routine 08/25/2024 PROTEIN / CREATININE RATIO, URINE, RANDOM Routine 08/25/2024 POCT HEMOGLOBIN A1C Routine 08/23/2024 1 1:09 AM CDT Type 2 diabetes mellitus with other specified complication, unspecified whether care home insulin use (HCC) POCT GLUCOSE 13930 Routine 08/23/2024 11 :09 AM CDT Type 2 diabetes mellitus with other specified complication, unspecified whether care home insulin use (HCC) TACROLIMUS LEVEL, TROUGH Routine 07/25/2024 RENAL FUNCTION PANEL Routine 07/25/2024 CBC WITH AUTO DIFFERENTIAL Routine 07/25/2024 PROTEIN / CREATININE RATIO, URINE, RANDOM Routine 07/25/2024 EGFR Routine 06/28/2024 10:37 AM CDT Multiple myeloma not having achieved remission (HCC) ALBUMIN CREATININE RATIO, URINE Routine 02/25/2024 THYROID FUNCTION CASCADE Routine 10/12/2022 10:23 AM CDT Neuropathy PSA SCREEN STAT 09/24/2022 4:48 PM CDT HEPATITIS C ANTIBODY Routine 05/30/2019 1:17 PM CDT from Last 3 Months or Most Recently Relevant to Health Maintenance Results * (ABNORMAL) POCT urinalysis dipstick (10/04/2024 11:29 AM CDT) Glucose, ur, POC TXP NO LAB FOUND Comment:>=1000 mg/dl Bilirubin, ur, POC Negative Negative TXP NO LAB FOUND Ketones, ur, POC Negative Negative TXP NO LAB FOUND Specific [place], POC 1.010 1.003 - 1.030 TXP NO LAB FOUND Blood, ur, POC Non-hemolyze d, trace(A) Negative TXP NO LAB FOUND pH, ur, POC 5.5 5.0 - 8.0 TXP NO L AB FOUND Protein, ur, POC 30.(A) Negative TXP NO LAB FOUND Urobilinogen, urine, POC 0.2 0.2 - 1.0 mg/dL TXP NO LAB FOUND Nitrite, ur, POC Negative Negative TXP NO LAB FOUND Leukocytes, ur, POC Negative Negative TXP NO LAB FOUND Lot Number [id number] TXP NO LA B FOUND Urine 10/04/2024 11:2 9 AM CDT Rossana Limon MD POINT OF CARE TEST ORDERABLES Final Result Performing Organization Address [facility] de Phone Number TXP NO LAB FOUND * (ABNORMAL) Tacrolimus level trough (09/25/2024) Pathologist [facility] SCRIBED Tacrolimus, trough 2.7(A) 5 - 20 TXP NO LAB FOUND Blood 09/25/2024 Historical Provider LAB BLOOD ORDERABLES Edit ed Result - Final Performing Organization Address [facility]/ZIP Co de Phone Number TXP NO LAB FOUND * (ABNORMAL) CBC with auto differential (09/25/2024) Pathologist [facility] SCRIBED WBC 5.4 4.8 - 10.8 TXP NO LAB FOUND SCRIBED Hemoglobin 15.4 14.0 - 18.0 TXP NO LAB FOUND SCRIBED Hematocrit 46.2 40.0 - 54.0 % TXP NO LAB FOUND SCRIBED Platelets 169 150 - 420 K/cumm TXP NO LAB FOUND SCRIBED RBC TXP NO L AB FOUND Comment:- SCRIBED Lymphocytes Abs 1.0(A) 1.1 - 4.5 K/cumm TXP NO LAB FOUND Blood 09/25/2024 Historical Provider MD LAB BLOOD ORDERABLES Aida l Result Performing Organization Address [facility] Co de Phone Number TXP NO LAB FOUND * (ABNORMAL) Protein / creatinine ratio, urine, random (09/25/2024) SCRIBED Protein, Urine 80 n/a TXP NO LAB FOUND SCRIBED Creatinine, Urine 100.2 n/a mg/dL TXP NO LAB FOUND SCRIBED Protein/Creat Ratio 0.80(A) 0 - 0.20 TXP NO LAB FOUND Urine 09/25/2024 Historical Provider LAB URINE ORDERABLES Edit ed Result - Final Performing Organization Address [facility] de Phone Number TXP NO LAB FOUND * (ABNORMAL) Renal function panel (09/25/2024) SCRIBED Calcium 10.2 8.4 - 10.2 mg/dl TXP NO LAB FOUND SCRIBED Phosphorus 3 2.5 - 4.5 mg/dl TXP NO LAB FOUND SCRIBED Albumin 4.3 3.5 - 5.1 g/dl TXP NO LAB FOUND SCRIBED Glucose 120(A) 65 - 110 mg/dl TXP NO LAB FOUND SCRIBED Creatinine 1.58(A) 0.7 - 1.3 mg/dl TXP NO LAB FOUND SCRIBED Sodium 141 137 - 145 mmol/L TXP NO LAB FOUND SCRIBED Potassium 4.3 3.4 - 5 mmol/L TXP NO LAB FOUND SCRIBED Chloride 109(A) 98 - 107 mmol/L TXP NO LAB FOUND SCRIBED Carbon Dioxide 26 22 - 30 mmol/L TXP NO LAB FOUND SCRIBED eGFR in 45 >=60 TXP NO LAB FOUND SCRIBED Urea Nitrogen (BUN) 22(A) 9 - 20 mg/dl TXP NO LAB FOUND Serum Osmolality 296(A) 285 - 295 TXP NO LAB FOUND Blood 09/25/2024 Result [facility] Historical Provider MD LAB BLOOD ORDERABLES Edit ed Result - Final Performing Organization Address [facility] de Phone Number TXP NO LAB FOUND * (ABNORMAL) Lipid panel (09/25/2024) SCRIBED Cholesterol, Total 135 0 - 200 mg/dL TXP NO LAB FOUND SCRIBED Triglycerides 203 <150 mg/dL TXP NO LAB FOUND SCRIBED HDL 42 >35 mg/dL TXP NO L AB FOUND SCRIBED LDL 52 <130 mg/dL TXP NO LAB FOUND Scribed Non-HDL Cholesterol 0 NONE mg/dL TXP NO LAB FOUND SCRIBED Total Cholesterol/HDL Ratio 0 NONE TXP NO LAB FOUND Blood 09/25/2024 Result [facility] Provider LAB BLOOD ORDERABLES Aida l Result Performing Organization Address [facility] de Phone Number TXP NO LAB FOUND * (ABNORMAL) Tacrolimus level trough (08/25/2024) SCRIBED Tacrolimus, trough 2.6(A) 5 - 20 TXP NO LAB FOUND Blood 08/25/2024 Result [facility] Provider MD LAB BLOOD ORDERABLES Edit ed Result - Final Performing Organization Address [facility] de Phone Number TXP NO LAB FOUND * (ABNORMAL) CBC with auto differential (08/25/2024) SCRIBED WBC 6.2 4.8 - 10.8 K/cumm TXP NO LAB FOUND SCRIBED Hemoglobin 16.0 14.0 - 18.0 g/dL TXP NO LAB FOUND SCRIBED Hematocrit 48.7 40.0 - 54.0 % TXP NO LAB FOUND SCRIBED Platelets 151 150 - 420 K/cumm TXP NO LAB FOUND SCRIBED RBC TXP NO L AB FOUND Comment:- SCRIBED Lymphocytes Abs 1.1 1.1 - 4.5 K/cumm TXP NO LAB FOUND Blood 08/25/2024 Result [facility] Provider LAB BLOOD ORDERABLES Aida l Result TXP NO LAB FOUND * (ABNORMAL) Protein / creatinine ratio, urine, random (08/25/2024) SCRIBED Protein, Urine 154 n/a TXP NO LAB FOUND SCRIBED Creatinine, Urine 104.9 NONE mg/dL TXP NO LAB FOUND SCRIBED Protein/Creat Ratio 1.47(A) 0 - 0.2 TXP NO LAB FOUND Urine 08/25/2024 Result [facility] Provider LAB URINE ORDERABLES Aida l Result Performing Organization Address [facility] Co de Phone Number TXP NO LAB FOUND * (ABNORMAL) Hemoglobin A1c (08/25/2024) Pathologist [facility] SCRIBED Hemoglobin A1c 6.3 <5.7 % TXP NO LAB FOUND Blood 08/25/2024 Result [facility] Provider LAB BLOOD ORDERABLES Aida l Result TXP NO LAB FOUND * (ABNORMAL) Hepatic function panel (08/25/2024) SCRIBED Protein, Total, Serum 6.7 6.3 - 8.2 g/dL TXP NO LAB FOUND SCRIBED Albumin 4.3 3.5 - 5.1 g/dl TXP NO LAB FOUND SCRIBED Bilirubin, Total 3.0(A) 0.2 - 1.3 mg/dL TXP NO LAB FOUND SCRIBED Bilirubin, Direct <0.1 0 - 0.3 mg/dL TXP NO LAB FOUND SCRIBED Alkaline Phosphatase 61 38 - 126 Units/L TXP NO LAB FOUND SCRIBED Aspartate Transaminase (AST) 38 17 - 59 Units/L TXP NO LAB FOUND SCRIBED Alanine Transaminase (ALT) 43 6 - 50 Units/L TXP NO LAB FOUND Blood 08/25/2024 [facility] Provider LAB BLOOD ORDERABLES Aida l Result Performing Organization Address [facility]/ZIP Co de Phone Number TXP NO LAB FOUND * (ABNORMAL) Renal function panel (08/25/2024) SCRIBED Calcium 9.8 8.4 - 10.2 mg/dl TXP NO LAB FOUND SCRIBED Phosphorus 2.8 2.5 - 4.5 mg/dl TXP NO LAB FOUND SCRIBED Albumin 4.3 3.5 - 5.1 g/dl TXP NO LAB FOUND SCRIBED Glucose 117(A) 65 - 110 mg/dl TXP NO LAB FOUND SCRIBED Creatinine 1.42(A) 0.7 - 1.3 mg/dl TXP NO LAB FOUND SCRIBED Sodium 140 137 - 145 mmol/L TXP NO LAB FOUND SCRIBED Potassium 3.8 3.4 - 5 mmol/L TXP NO LAB FOUND SCRIBED Chloride 108(A) 98 - 107 mmol/L TXP NO LAB FOUND SCRIBED Carbon Dioxide 27 22 - 30 mmol/L TXP NO LAB FOUND SCRIBED eGFR in 50 >=60 TXP NO LAB FOUND SCRIBED Urea Nitrogen (BUN) 19 9 - 20 mg/dl TXP NO LAB FOUND Serum Osmolality 293 285 - 295 TXP NO LAB FOUND Blood 08/25/2024 Result [facility] Provider LAB BLOOD ORDERABLES Edit ed Result - Final Performing Organization Address [facility]/State/ZIP Co de Phone Number TXP NO LAB FOUND * (ABNORMAL) Lipid panel (08/25/2024) SCRIBED Cholesterol, Total 152 0 - 200 mg/dL TXP NO LAB FOUND SCRIBED Triglycerides 185 <150 mg/dL TXP NO LAB FOUND SCRIBED HDL 53 >35 mg/dL TXP NO L AB FOUND SCRIBED LDL 62 <130 mg/dL TXP NO LAB FOUND Scribed Non-HDL Cholesterol 0 NONE mg/dL TXP NO LAB FOUND SCRIBED Total Cholesterol/HDL Ratio 0 NONE TXP NO LAB FOUND Blood 08/25/2024 Result [facility] Historical Provider LAB BLOOD ORDERABLES Aida l Result TXP NO LAB FOUND * POCT glucose (08/23/2024 11:09 AM CDT) [facility] Glucose Blood, POC 157 Normal Fasting 70 - 100, Random <200 mg/dL Blood 08/23/2024 11:0 9 AM CDT Result [facility] Brian Ambrsoe MD POINT OF CARE TEST ORDERABLES F inal Result * (ABNORMAL) POCT hemoglobin A1c (08/23/2024 11:09 AM CDT) [facility] Hemoglobin A1C, POC 6.8(A) 4.0 - 5.6 % Blood 08/23/2024 11:0 9 AM CDT Result [facility] Brian Ambrose MD POINT OF CARE TEST ORDERABLES F inal Result * (ABNORMAL) Tacrolimus level trough (07/25/2024) Pathologist [facility] SCRIBED Tacrolimus, trough 1.9(A) 5 - 20 TXP NO LAB FOUND Blood 07/25/2024 Result [facility] Historical Provider LAB BLOOD ORDERABLES Edit ed Result - Final TXP NO LAB FOUND * (ABNORMAL) CBC with auto differential (07/25/2024) SCRIBED WBC 7.4 4.8 - 10.8 k/cumm TXP NO LAB FOUND SCRIBED Hemoglobin 16.7 14 - 18 g/dL TXP NO LAB FOUND SCRIBED Hematocrit 49.4 40 - 54 % TXP NO LAB FOUND SCRIBED Platelets 147(A) 150 - 420 k/cumm TXP NO LAB FOUND SCRIBED Lymphocytes Abs 1.24 1.1 - 4.5 k/cumm TXP NO LAB FOUND Blood 07/25/2024 Historical Provider MD LAB BLOOD ORDERABLES Aida l Result Performing Organization Address City/[facility]/ZIP Co de Phone Number TXP NO LAB FOUND * (ABNORMAL) Protein / creatinine ratio, urine, random (07/25/2024) SCRIBED Protein, Urine >200 n/a TXP NO LAB FOUND SCRIBED Creatinine, Urine 86.8 n/a TXP NO LAB FOUND SCRIBED Protein/Creat Ratio 2.3(A) 0 - 0.2 TXP NO LAB FOUND Urine 07/25/2024 Result [facility] Provider LAB URINE ORDERABLES Aida l Result Performing Organization Address [facility] Co de Phone Number TXP NO LAB FOUND * (ABNORMAL) Renal function panel (07/25/2024) Pathologist [facility] SCRIBED Calcium 9.7 8.4 - 10.2 mg/dl TXP NO LAB FOUND SCRIBED Phosphorus 2.0(A) 2.5 - 4.5 mg/dl TXP NO LAB FOUND SCRIBED Albumin 4.3 3.5 - 5.1 g/dl TXP NO LAB FOUND SCRIBED Glucose 111(A) 65 - 110 mg/dl TXP NO LAB FOUND SCRIBED Creatinine 1.37(A) 0.7 - 1.3 mg/dl TXP NO LAB FOUND SCRIBED Sodium 140 137 - 145 mmol/L TXP NO LAB FOUND SCRIBED Potassium 3.7 3.4 - 5 mmol/L TXP NO LAB FOUND SCRIBED Chloride 109(A) 98 - 107 mmol/L TXP NO LAB FOUND SCRIBED Carbon Dioxide 25 22 - 30 mmol/L TXP NO LAB FOUND SCRIBED eGFR in 53 >=60 TXP NO LAB FOUND SCRIBED Urea Nitrogen (BUN) 23(A) 9 - 20 mg/dl TXP NO LAB FOUND Serum Osmolality 294 285 - 295 TXP NO LAB FOUND Blood 07/25/2024 us Historical Provider LAB BLOOD ORDERABLES Edit ed Result - Final TXP NO LAB FOUND * eGFR (06/28/2024 10:37 AM CDT) eGFR 62 >=60 mL/min/1. 73 m2 Comment: Interpretive Data Reference Interval Normal >/= 90 mL/min/1.73m2 Mildly decreased* 60 - 89 mL/min/1.73m2 Mildly to moderately decreased 45 - 59 mL/min/1.73m2 Moderately to severely decreased 30 - 44 mL/min/1.73m2 Severely decreased 15 - 29 mL/min/1.73m2 Kidney Failure < 15 mL/min/1.73m2 *Relative to young adult level Estimated glomerular [...] interpretive data was last reviewed 2020. Blood 06/28/2024 10:3 7 AM CDT 06/28/2024 10:43 AM CDT us Felipe Foss MD LAB BLOOD ORDERABLES Final R esult [facility] Department [place] [address] * (ABNORMAL) Albumin Creatinine Ratio, Urine (02/25/2024) SCRIBED Creatinine, Urine 102.95 40 - 278 TXP NO LAB FOUND SCRIBED Microalbumin >400.00 n/a TXP NO LAB FOUND SCRIBED Microalb/Creat Ratio 388.5(A) 0 - 30 TXP NO LAB FOUND Urine 02/25/2024 Historical Provider MD LAB URINE ORDERABLES Edit ed Result - Final TXP NO LAB FOUND * (ABNORMAL) TSH reflex to free T4 (10/12/2022 10:23 AM CDT) TSH 7.31(H) 0.30 - 4.20 mcIUnit/mL [facility] Blood 10/12/2022 10:2 3 AM CDT 10/12/2022 10:40 AM CDT Milli GREEN LAB BLOOD ORDERABLES Aida l Result Performing Organization Address City/[facility]/ZIP Co de Phone Number [facility] Department [place] [address] * PSA screen (09/24/2022 4:48 PM CDT) PSA-Total 0.54 <=5.40 ng/mL [facility] Comment: Interpretive Data AGE SEX REFERENCE [...] Victoria MD LAB BLOOD ORDERABLES Final Result [facility] Department [place] [address] * Hepatitis C antibody (05/30/2019 1:17 PM CDT) Hep C Ab Nonreactive Nonreactive [facility] Blood specimen (specimen) 05/30/2019 1:17 PM CDT 05/30/2019 1:38 PM CDT us Abi Fitzpatrick NP LAB MICROBIOLOGY - GENERAL ORD ERABLES Edited Result - Final Performing Organization Address City/[facility] Co de Phone Number [facility] [place] [address] from Last 3 Months or Most Recently Relevant to Health Maintenance Insurance [employer] [facility] MEDICARE [facility] [employer] [facility] WORKERS COMPENSATION GENERIC COMPENSATION Advance Directives For more information, please contact: [phone] Documents on File Type Date Recorded Patient White Sugar Syrup Operator Expl anation ADVANCE DIRECTIVE 04/07/2019 2:18 PM [...] 8:43 AM 05/15/2021 12:44 PM Care Teams Poultry Raiser Relationship Specialty Start Date End Date Rigo Alvarenga MD PCP - General 03/31/17 Rand Collins, FLORES [address] [facility] [address] [place] [address] Couture Dressmaker 05/31/19 Felipe Foss MD [address] [place] [address] Medical Oncologist/Getterer Hematology and Oncology 01/04/23
--- OUTSIDE RECORDS SUMMARY | 2024-10-17 15:56 | XMS_ITS | Encounter Summary ---
Author Organization [facility] Address formerly [facility] [place] [address] Care Team Providers Care Rotary Kiln Operator Name Role Phone Rigo Alvarenga MD Primary Care Provider [phone] Encounter Details Date Type Department Care Team (Late st Contact Info) Description 07/23/2018 Abstract [facility] [address] [place] [address] , Generic ConversionMD Social History Tobacco Use [...] on filedocumented in this encounter Care Teams Rotary Kiln Operator Relationship Specialty Start Date End Date Rigo Alvarenga MD [address] [place] [id number] PCP - General INTERNAL MEDICINE 06/19/19 documented as of this encounter
--- OUTSIDE RECORDS SUMMARY | 2024-10-17 15:56 | XMS_ITS | Encounter Summary ---
Author Organization [facility] Address [address] [facility] [address] [place] [address] Phone Care Team Providers Care Assurance Manager Name Role Phone Rigo Alvarenga MD Primary Care Provider [phone] Rand Collins RN Unavailable [phone] Felipe Foss MD Unavailable [phone] Encounter Details Date Type Department Care Team (Late st Contact Info) Description 10/11/2024 Telephone [facility] Medicine Vascular Surgery [address] [facility] [address] [place] [address] Ace Payan MD [address] [facility] [address] [place] [address] Social History Tobacco Use Types [...] any clubs o r organizations such as restoration groups, unions, fraternal or athletic groups, or [...] on file 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 Melton called the office today. He notes he called a week or so ago also. He saw his PCP 3 days ago for return of his arm pain. She prescribed PT for him for his arm pain. His AV access on that armis thrombosed. He said it is not his access but all around, elbow arm etc. I asked if he slept on his pillow wrong or something as that can lead to arm pain. He does not think it is that. He asked ifhe should just see what the PT does and I encouraged this for him. Will let [facility] know of his return of symptoms and PT plan. He starts PT today. documented in this encounter Plan of Treatment Not on file documented as of this encounter Visit Diagnoses Not on filedocumented in this encounter Care Teams Assurance Manager Relationship Specialty Start Date End Date Rigo Alvarenga MD PCP - General 03/31/17 Rand Collins, RN [address] [place] [address] Seismograph Shooter 05/31/19 Felipe Foss MD [address] [place] [address] Medical Oncologist/Rails Developer Hematology and Oncology 01/04/23 documented as of this encounter
--- OUTSIDE RECORDS SUMMARY | 2024-10-17 15:56 | XMS_ITS | Encounter Summary ---
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 Gender Identity Not on file Sexual Orientation Not on file documented as of this encounter Plan of Treatment Not on file documented as of this encounter Procedures Procedure Name Priority Date/Time Associated Diagnosis Comments CARDIOLOGY DOCUMENT SCAN 01/16/2021 documented in this encounter Results * CARDIOLOGY DOCUMENT SCAN (01/16/2021) Anatomical Region Laterality Modality Other Provider Scanning CV CARDIAC SERVICES PROCEDURES Final Result documented in this encounter Visit Diagnoses Not on filedocumented in this encounter Care Teams Mobile Therapist Relationship Specialty Start Date End Date Rigo Alvarenga MD PCP - General 03/31/17 Rand Collins, FLORES [address] [place] [address] Nursing Assistants Teacher 05/31/19 Felipe Foss MD [address] [place], [place] [id number] Medical Oncologist/Transition Mgr Rn Hematology and Oncology 01/04/23 documented as of this encounter
--- OUTSIDE RECORDS SUMMARY | 2024-10-17 15:56 | XMS_ITS ---
Author Organization [facility] Address [address] [place] [address] Care Team Providers Care Scale Installer Name Role Phone Rigo Alvarenga MD Primary Care Provider [phone] Rand Collins RN Unavailable [phone] Felipe Foss MD Unavailable [phone] Dialysis Access Sites Type Status Location Placement [...] mellitus with other specified complication, unspecified whether watermelon harvesting supervisor insulin use (HCC) POCT GLUCOSE 50108 Routine 08/23/2024 11 :09 AM CDT Type 2 diabetes mellitus with other specified complication, unspecified whether watermelon harvesting supervisor insulin use (HCC) TACROLIMUS LEVEL, TROUGH Routine [...] mellitus with other specified complication, unspecified whether mcfp insulin use (HCC) Use to check blood [...] mellitus with other specified complication, unspecified whether watermelon harvesting supervisor insulin use (HCC) Use to read missy 3 sensor 1 each 01/01/20 23 Active cholecalciferol (VITAMIN D-3) 2000 unit tabletIndicatio ns:Prevention of Vitamin D Deficiency Take 0.5 tablets (1,000 Units total) by mouth every morning Active FreeStyle Missy 3 [place] misc as directed Sugars have been way [...] mellitus with other specified complication, unspecified whether watermelon harvesting supervisor insulin use (HCC) Inject 1 mg under [...] mellitus with other specified complication, unspecified whether mcfp insulin use (HCC) TAKE 1 TABLET BY MOUTH EVERY DAY 90 tablet 3 02/14/20 24 Active amLODIPine (NORVASC) 10 mg tablet Take 1 tablet (10 mg total) by mouth daily 30 tablet 11 04/26/19 25 026 Active allopurinoL (ZYLOPRIM) 100 mg tablet TAKE 1 TABLET BY MOUTH EVERY DAY 90 tablet 3 06/08/19 25 Active OneTouch Verio test strips stripIndication s:Type 2 diabetes mellitus with other specified complication, unspecified whether mcfp insulin use (HCC) CHECK BLOOD SUGAR 3 TIMES A DAY 100 strip 11 06/24/19 25 Active aspirin 81 mg enteric coated tabletIndicatio ns:Kidney replaced by transplant TAKE 1 TABLET BY MOUTH EVERY DAY 90 tablet 3 06/30/19 25 Active bumetanide (BUMEX) 0.5 mg tablet Take 2 tablets (1 mg total) by mouth 2 (two) times a day 60 tablet 11 08/01/19 25 Active tirzepatide (Mounjaro) 12.5 mg/0.5 mL pen injector injectionIndica tions:Type 2 diabetes mellitus with other specified complication, unspecified whether mcfp insulin use (HCC) Inject 0.5 mL (12.5 mg total) under the skin every 7 days 2 mL 11 08/24/19 25 Active tamsulosin (FLOMAX) 0.4 mg extended release capsuleIndicati ons:Kidney replaced by transplant TAKE 1 CAPSULE BY MOUTH TWICE A DAY 180 capsule 1 08/25/19 25 Active FreeStyle Missy 3 Sensor deviceIndicatio ns:Type 2 diabetes mellitus with other specified complication, unspecified whether watermelon harvesting supervisor insulin use (HCC) Use the missy 3 plus sensor to check blood sugar before meals and at bed time and as needed 6 each 3 09/13/19 25 Active clotrimazole-be tamethasone (LOTRISONE) cream Apply topically 09/19/19 25 Active lancets (OneTouch Delica Plus Lancet) 30 gauge miscIndications :Type 2 diabetes mellitus with other specified complication, unspecified whether m[facility]p insulin use (HCC) USE TO CHECK BLOOD SUGAR 3 TIMES PER DAY 100 each 11 10/04/19 25 Active tacrolimus XR (ENVARSUS XR) 0.75 mg tablet extended release 24 hrIndications:P revention of Kidney Transplant Rejection Take 3 tablets (2.25 mg total) by mouth daily 270 tablet 3 10/05/19 25 026 Active lancets (OneTouch Delica Plus Lancet) 30 gauge miscIndications :Type 2 diabetes mellitus with other specified complication, unspecified whether watermelon harvesting supervisor insulin use (HCC) USE TO CHECK BLOOD SUGAR 3 TIMES PER DAY 100 each 11 09/08/19 24 025 Discontinued tacrolimus XR (ENVARSUS XR) 0.75 [...] and lunch 180 tablet 2 04/05/19 25 025 Discontinued(Carlton ojeda Reported) Active Problems Patient Care Coordination No te Formatting of this note migh t be different from the original. Per Dr. Limon, GEORGE goal 2-4 d/t receiving treatment for MM on Envarsus 1mg Discharge Preferences: Lab: [facility] , [phone] standing orders q Monthly, FK,UPE, q3 HgbA1C Exp. 03/28/25 Home Health: [facility] /[phone] Local Pharmacy: [facility] in [place] Specialty Pharmacy: [facility] Problem Noted Date Diagnosed [...] cardiology follow up. Discussed plan with attending processing engineer. HEATHER on CPAP 09/25/2022 Assessment & Plan [...] further with Dr. Yu. 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 Assessment & Plan (05/04/2022 8:32 AM CDT): -retirement use of immunosuppressants and steroids complicates diabetes [...] (05/30/2019): Added automatically from request for surgery [id number] Pruritus 08/10/2018 ESRD (end stage renal disease) [...] Respiratory Syncytial Virus (Rsv) Mab, Unspecified 05/15/2024 Social History Tobacco Use Types Packs/Day Years [...] How often do you attend chur or sikhism services? 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 Gender Identity Not on file Sexual Orientation [...] Mass Index 29.29 10/04/2024 11:24 AM CDT Results * (ABNORMAL) POCT urinalysis dipstick (10/04/2024 11:29 AM CDT) Glucose, ur, POC TXP NO LAB FOUND Comment:>=1000 mg/dl Bilirubin, ur, POC Negative Negative TXP NO LAB FOUND Ketones, ur, POC Negative Negative TXP NO LAB FOUND Specific [place], POC 1.010 1.003 - 1.030 TXP NO [...] Negative TXP NO LAB FOUND Lot Number [id number] TXP NO LA B FOUND Urine 10/04/2024 11:2 9 AM CDT Rossana Limon MD POINT OF CARE TEST ORDERABLES Final Result TXP NO LAB FOUND * (ABNORMAL) Tacrolimus level trough (09/25/2024) SCRIBED Tacrolimus, trough 2.7(A) 5 - 20 TXP NO LAB FOUND Blood 09/25/2024 [facility] Provider LAB BLOOD ORDERABLES Edit ed Result - Final Performing Organization Address [facility] de Phone Number TXP NO LAB FOUND * (ABNORMAL) CBC with auto differential (09/25/2024) SCRIBED WBC 5.4 4.8 - 10.8 TXP [...] K/cumm TXP NO LAB FOUND Blood 09/25/2024 [facility] Provider LAB BLOOD ORDERABLES Aida l Result Performing Organization Address [facility] de Phone Number TXP NO LAB FOUND * (ABNORMAL) Protein / creatinine ratio, urine, random (09/25/2024) SCRIBED Protein, Urine 80 n/a TXP NO LAB FOUND SCRIBED Creatinine, Urine 100.2 n/a mg/dL TXP NO LAB FOUND SCRIBED Protein/Creat Ratio 0.80(A) 0 - 0.20 TXP NO LAB FOUND Urine 09/25/2024 [facility] Provider LAB URINE ORDERABLES Edit ed Result - Final Performing Organization Address [facility] de Phone Number TXP NO [...] 295 TXP NO LAB FOUND Blood 09/25/2024 Historical Provider MD LAB BLOOD ORDERABLES Edit ed Result - Final Performing Organization Address [facility]/ZIP Co de Phone Number TXP NO [...] NONE TXP NO LAB FOUND Blood 09/25/2024 [facility] Provider LAB BLOOD ORDERABLES Aida l Result Performing Organization Address [facility]/State/ZIP Co de Phone Number TXP NO LAB FOUND * (ABNORMAL) Tacrolimus level trough (08/25/2024) SCRIBED Tacrolimus, trough 2.6(A) 5 - 20 TXP NO LAB FOUND Blood 08/25/2024 Result [facility] Provider LAB BLOOD ORDERABLES Edit ed Result - Final Performing Organization Address [facility] de Phone Number TXP NO [...] TXP NO LAB FOUND Blood 08/25/2024 Result [facility] Provider LAB BLOOD ORDERABLES Aida l Result Performing Organization Address [facility] de Phone Number TXP NO LAB FOUND * (ABNORMAL) Protein / creatinine ratio, urine, random (08/25/2024) SCRIBED Protein, Urine 154 n/a TXP NO LAB FOUND SCRIBED Creatinine, Urine 104.9 NONE mg/dL TXP NO LAB FOUND SCRIBED Protein/Creat Ratio 1.47(A) 0 - 0.2 TXP NO LAB FOUND Urine 08/25/2024 Result [facility] Provider LAB URINE ORDERABLES Aida l Result Performing Organization Address [facility] de Phone Number TXP NO LAB FOUND * (ABNORMAL) Hemoglobin A1c (08/25/2024) SCRIBED Hemoglobin A1c 6.3 <5.7 % TXP NO LAB FOUND Blood 08/25/2024 [facility] Provider LAB BLOOD ORDERABLES Aida l Result Performing Organization Address City/[facility] Co de Phone Number [...] Units/L TXP NO LAB FOUND Blood 08/25/2024 Historical Provider LAB BLOOD ORDERABLES Aida l Result Performing Organization Address [facility] Co de Phone Number [place] NO LAB FOUND * (ABNORMAL) Renal [...] TXP NO LAB FOUND Blood 08/25/2024 Result [facility] Historical Provider LAB BLOOD ORDERABLES Edit ed Result - Final Performing Organization Address City/[facility]/ZIP Co de Phone Number TXP NO [...] TXP NO LAB FOUND Blood 08/25/2024 Result [facility] Historical Provider LAB BLOOD ORDERABLES Aida l Result Performing Organization Address [facility] Co de Phone Number TXP NO LAB FOUND * POCT glucose (08/23/2024 11:09 AM CDT) Glucose Blood, POC 157 Normal Fasting 70 - 100, Random <200 mg/dL Blood 08/23/2024 11:0 9 AM CDT Result [facility] Brian Ambrose MD POINT OF CARE TEST ORDERABLES F inal Result * (ABNORMAL) POCT hemoglobin A1c (08/23/2024 11:09 AM CDT) Hemoglobin A1C, POC 6.8(A) 4.0 - 5.6 % Blood 08/23/2024 11:0 9 AM CDT Result [facility] Brian Ambrose MD POINT OF CARE TEST ORDERABLES F inal Result * (ABNORMAL) Tacrolimus level trough (07/25/2024) SCRIBED Tacrolimus, trough 1.9(A) 5 - 20 TXP NO LAB FOUND Blood 07/25/2024 Result [facility] Provider LAB BLOOD ORDERABLES Edit ed Result - Final Performing Organization Address [facility] de Phone Number TXP NO [...] k/cumm TXP NO LAB FOUND Blood 07/25/2024 Result [facility] Provider LAB BLOOD ORDERABLES Aida l Result Performing Organization Address [facility] de Phone Number TXP NO LAB FOUND * (ABNORMAL) Protein / creatinine ratio, urine, random (07/25/2024) SCRIBED Protein, Urine >200 n/a TXP NO LAB FOUND SCRIBED Creatinine, Urine 86.8 n/a TXP NO LAB FOUND SCRIBED Protein/Creat Ratio 2.3(A) 0 - 0.2 TXP NO LAB FOUND Urine 07/25/2024 Result [facility] Provider LAB URINE ORDERABLES Aida l Result Performing Organization Address [facility] de Phone Number TXP NO LAB FOUND * (ABNORMAL) Renal function panel (07/25/2024) SCRIBED Calcium 9.7 8.4 - 10.2 mg/dl [...] ORDERABLES Final R esult Performing Organization Address [facility] Co de Phone Number [facility] [place] [address] * (ABNORMAL) Albumin Creatinine Ratio, Urine (02/25/2024) SCRIBED Creatinine, Urine 102.95 40 - 278 TXP NO LAB FOUND SCRIBED Microalbumin >400.00 n/a TXP NO LAB FOUND SCRIBED Microalb/Creat Ratio 388.5(A) 0 - 30 TXP NO LAB FOUND Urine 02/25/2024 us Historical Provider LAB URINE ORDERABLES Edit ed Result - Final Performing Organization Address [facility] de Phone Number TXP NO LAB FOUND * (ABNORMAL) TSH reflex to free T4 (10/12/2022 10:23 AM CDT) Pathologist [facility] TSH 7.31(H) 0.30 - 4.20 mcIUnit/mL [facility] Blood 10/12/2022 10:2 3 AM CDT 10/12/2022 10:40 AM CDT us Milli GREEN LAB BLOOD ORDERABLES Aida l Result Performing Organization Address [facility] Co de Phone Number [facility] [place] [address] * PSA screen (09/24/2022 4:48 PM CDT) Pathologist [facility] PSA-Total 0.54 <=5.40 ng/mL [facility] Comment: Interpretive Data AGE SEX REFERENCE INTERVAL [...] Victoria MD LAB BLOOD ORDERABLES Final Result [facility] [place] [place] [address] * Hepatitis C antibody (05/30/2019 1:17 PM CDT) Hep C Ab Nonreactive Nonreactive [facility] Blood specimen (specimen) 05/30/2019 1:17 PM CDT 05/30/2019 1:38 PM CDT us Abi Fitzpatrick NP LAB MICROBIOLOGY - GENERAL ORD ERABLES Edited Result - Final [facility] [place] [address] from Last 3 Months or Most Recently Relevant to Health Maintenance
--- OUTSIDE RECORDS SUMMARY | 2024-10-17 15:56 | XMS_ITS | Encounter Summary ---
Author Organization [facility] Address [address] [place] [address] Care Team Providers Care Compressed Gases Tester Name Role Phone Rigo Alvarenga MD Primary Care Provider [phone] Rand Collins RN Unavailable [phone] Felipe Foss MD Unavailable [phone] Encounter Details Date Type Department Care Team (Late st Contact Info) Description 10/16/2021 Telephone [facility] Medicine [facility] [address] [facility] [address] [place] [address] Rigo Alvarenga MD [address] [place] [address] Social History Tobacco Use Types [...] any clubs o r organizations such as uatsdin groups, unions, fraternal or athletic groups, or [...] on file 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
--- OUTSIDE RECORDS SUMMARY | 2024-10-17 15:56 | XMS_ITS ---
Author Organization [facility] Address [address] [place] [address] Care Team Providers Care Haul Driver Name Role Phone Rigo Alvarenga MD Primary Care Provider [phone] Rand Collins RN Unavailable [phone] Felipe Foss MD Unavailable [phone] Transplant Episode Kidney Recipient [facility] ([place], [place]) - [facility] Organ Received: Left Kidney Transplanted on 05/30/2019 Marked as Active Follow-up on 05/30/2019 Reason: Transplanted at [facility] Kidney CoordinatorRand Collins RN Fax: N/A Email: N/A [place] Organ Diagnosis Organ Primary Contributory Kidney Focal [...] Fax Email Rand Collins RN Kidney Coordinator [phone] N/A N/A Miguel Hernandez MD Referring Physician [phone] N/A Nicole Valencia Primary Tack Coverer N/A N/A N/A Ace Payan MD Surgeon [phone] N/A Darshnaa Dean, FLORES Secondary Coordinator [phone] N/A N/A Rand Collins RN Treasury Specialist [phone] N/A N/A Kay Dwyer MD Transplant Title Curative Specialist [phone] N/A Chapo Nelson Secondary Tack Coverer N/A N/A N/A Cecelia Wilcox Job Placement Counselor [phone] N/A N/A Events Post-Transplant Pre-Transplant Admitted: 05/30/2019 Referred: 04/02/2015 Transplanted: 05/30/2019 Evaluation began: 6 Discharged: 06/02/2019 Center waitlisted: 6 Appointments (09/16/2024 - 11/16/2024) When With Visit Type Description 10/04/2024 Transplant - Kiley Limon for aftercare following kidney transplant (Primary Dx); Encounter for long-term (current) use of high-risk medication; Dyslipidemia; Hypertension, unspecified type; Renal osteodystrophy; Kidney replaced by transplant; Multiple myeloma in remission (HCC) Dialysis History Dialysis History Start End Type Comments Center 12/18/2015 05/30/2019 Home Hemodialysis [facility] Information Center Phone Fax Address [facility] [phone] [address] [facility] [address]
--- OUTSIDE RECORDS SUMMARY | 2024-10-17 15:56 | XMS_ITS | Encounter Summary ---
Author Organization [facility] Address [address] [place] [address] Phone Care Team Providers Care Roping Machine Tender Name Role Phone Rigo Alvarenga MD Primary Care Provider [phone] Rand Collins RN Unavailable [phone] Felipe Foss MD Unavailable [phone] Encounter Details Date Type Department Care Team [...] often do you attend chur ch or worship services? 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
--- OUTSIDE RECORDS SUMMARY | 2024-10-17 15:56 | XMS_ITS ---
Author Organization [facility] Address [address] [place] [address] Care Team Providers Care Fixture Fabricator Repairer Name Role Phone Rigo Alvarenga MD Primary Care Provider [phone] Rand Collins RN Unavailable [phone] Felipe Foss MD Unavailable [phone] Active Problems Patient Care Coordination No te Formatting of this note migh t be different from the original. Per Dr. Limon, GEORGE goal 2-4 d/t receiving treatment for MM on Envarsus 1mg Discharge Preferences: Lab: [facility] , [phone] standing orders q Monthly, FK,UPE, q3 HgbA1C Exp. 03/28/25 Home Health: [facility] /[phone] Local Pharmacy: [facility] in [place] Specialty Pharmacy: [facility] Problem Noted Date Diagnosed [...] cardiology follow up. Discussed plan with attending pre school teacher. HEATHER on CPAP 09/25/2022 Assessment & Plan [...] with Dr. Yu. Will proceed with [facility] to better assess volume status and [...] (04/30/2022): Added automatically from request for surgery [id number] Encounter for preadmission testing 04/24/2022 LAYO (acute [...] insulin, and kayaxelate -upon arrival to [facility] ED, K 6.0, WBK 5.6 [...] Assessment & Plan (09/21/2022 10:01 AM CDT): -continuous churn buttermaker use of immunosuppressants and steroids complicates diabetes [...] (05/30/2019): Added automatically from request for surgery [id number] Pruritus 08/10/2018 ESRD (end stage renal disease) [...] Foss MD Linked Problems Multiple myeloma in [facility] Treatment Medications Current Day (Day 1 , Cycle 4 - Planned for 12/01/2023) Next Day (Day 15, Cycle 4 - Planned for 12/15/2023) bortezomib (VELCADE) bortezomib (VELCADE ) subcutaneous syringe 2.625 mg bortezomib (VELCADE) subcutaneous syringe 2.625 mg Zoledronic Acid (ZOMETA) Infusion* Plan Start Date:02/24/2023 Plan Provider:Felipe Foss MD Linked Problems Multiple myeloma in [facility]) Treatment Medications No medications scheduled. Past Treatment and Therapy Plans Oncology Chemotherapy Treatment Plan Name Start Date Discontinue Date Treatment Medications Discontinue Reason Plan Provider Cycles Bortezomib / Lenalidomide / Dexamethasone PO 21 Day Cycles - Myeloma 3 08/31/2023 bortezomib (VELCADE) Therapy Complete Felipe Foss MD 4 of 4 cycles started Lifetime Dose Tracking * Chemical Lifetime Dose Automatic Entry Manual Entr y Fluoro Time 18 minutes 0 minutes 18 minutes Air kerma at the reference point (Ka,r) 487.6 mGy 0 mGy 487.6 mGy DLP 2,366 mGycm 2,366 mGycm 0 mGycm DAP 166.131 Gy-cm2 0 Gy-cm2 166.131 Gy-cm 2 Resolved Problems Problem Noted Date Diagnosed Date Resolved Date Hypotension 11/25/2022 08/26/2023 Elevated brain natriuretic p eptide (BNP) level 07/17/2022 08/26/2023 ESRD (end stage renal disease) 11/18/2017 05/10/2018 Overview (11/18/2017): Added automatically from request for surgery [id number] Peritoneal dialysis catheter tunnel infection 10/28/19 18 09/12/2018 Overview (10/27/2017): Added automatically from request for surgery [id number] End-stage renal disease on hemodialysis 10/07/2017 05/10/2018 Overview (10/07/2017): Added automatically from request for surgery [id number] Stage 4 chronic kidney disease 01/16/2015 05/10/2018 Encounter for monitoring tacrolimus therapy 11/17/2010 09/12/2018
== END 2024-10-17 15:52 | disposition home or self-care (01) ==
LOC: CHSIMG 15:53
PROVIDERS: PCP Internal Medicine; Visit Provider Nurse Practitioner Family
DX: S42.302D Unspecified fracture of shaft of humerus, left arm, subsequent encounter for fracture with routine healing (principal); M79.622 Pain in left upper arm; M19.212 Secondary osteoarthritis, left shoulder; M25.712 Osteophyte, left shoulder; M85.612 Other cyst of bone, left shoulder
CPT/HCPCS: 73060

== ENCOUNTER 2024-10-26 06:59 | Outpatient (CLI) | payer MEDICARE, SELFPAY ==
[2024-10-26 07:21] LABS: Hematocrit 44.8 % (40.0-54.0); Hemoglobin 15.3 g/dL (14.0-18.0); Immature Granulocyte Percent A 0.2 % (0.0-0.0); Lymphocytes Absolute Auto 1.21 K/mm3 (1.10-4.50); Mean Corpuscular HGB Conc 34.2 g/dL (32-36); Mean Corpuscular Hemoglobin 29.5 pg (27.0-31.0); Mean Corpuscular Volume 86.5 fL (78.0-102.0); Nucleated Red Blood Cells Absolute Auto 0.00 K/mm3 (0.00-0.00); Nucleated Red Blood Cells Perc 0.0 % (0-0.0); Platelet Count Result 151 K/mm3 (150-420); Red Blood Count 5.18 M/mm3 (4.70-6.10); White Blood Count 5.7 K/mm3 (4.8-10.8)
[2024-10-26 07:29] LABS: Total Protein Urine Random 25 mg/dL; Ur Ttl Prot Creatinine Ratio 0.27 mg/mg (0-0.20)
[2024-10-26 08:01] LABS: Albumin Level 4.6 g/dL (3.5-5.1); Anion Gap 10 mmol/L (4-12); Blood Urea Nitrogen 38 mg/dL (9-20); Calcium 10.0 mg/dL (8.4-10.2); Carbon Dioxide 26 mmol/L (22-30); Chloride 106 mmol/L (98-107); Estimated Glomerular Filt Rate 39; Glucose 126 mg/dL (65-110); Osmolality Calculated 305 mOsm/kg (285-295); Potassium 4.1 mmol/L (3.4-5.0); Sodium 142 mmol/L (137-145)
[2024-10-30 05:07] LABS: Tacrolimus (FK506), Blood 6.7 ng/mL (5.0-20.0)
== END 2024-10-26 07:00 | disposition home or self-care (01) ==
LOC: CHSLAB 07:06
PROVIDERS: PCP Internal Medicine
DX: Z94.0 Kidney transplant status (principal); E78.5 Hyperlipidemia, unspecified; Z79.899 Other long term (current) drug therapy; E10.65 Type 1 diabetes mellitus with hyperglycemia
CPT/HCPCS: 36415; 80069; 80197; 82570; 84156; 85025

== ENCOUNTER 2025-01-24 07:35 | Outpatient (CLI) | payer MEDICARE, SELFPAY ==
[2025-01-24 07:53] LABS: Hematocrit 42.9 % (40.0-54.0); Hemoglobin 14.8 g/dL (14.0-18.0); Immature Granulocyte Percent A 0.2 % (0.0-0.0); Lymphocytes Absolute Auto 1.26 K/mm3 (1.10-4.50); Mean Corpuscular HGB Conc 34.5 g/dL (32-36); Mean Corpuscular Hemoglobin 29.7 pg (27.0-31.0); Mean Corpuscular Volume 86.1 fL (78.0-102.0); Nucleated Red Blood Cells Absolute Auto 0.00 K/mm3 (0.00-0.00); Nucleated Red Blood Cells Perc 0.0 % (0-0.0); Platelet Count Result 160 K/mm3 (150-420); Red Blood Count 4.98 M/mm3 (4.70-6.10); White Blood Count 6.0 K/mm3 (4.8-10.8)
[2025-01-24 08:01] LABS: Total Protein Urine Random 48 mg/dL; Ur Ttl Prot Creatinine Ratio 0.41 mg/mg (0-0.20)
[2025-01-24 08:17] LABS: Albumin Level 4.7 g/dL (3.5-5.1); Anion Gap 11 mmol/L (4-12); Blood Urea Nitrogen 29 mg/dL (9-20); Calcium 10.2 mg/dL (8.4-10.2); Carbon Dioxide 23 mmol/L (22-30); Chloride 111 mmol/L (98-107); Cholesterol 129 mg/dL (0-200); Estimated Glomerular Filt Rate 43; Glucose 108 mg/dL (65-110); HDL Direct 48 mg/dL; Osmolality Calculated 306 mOsm/kg (285-295); Potassium 3.7 mmol/L (3.4-5.0); Sodium 145 mmol/L (137-145); Triglycerides 140 mg/dL (<150)
[2025-01-27 16:08] LABS: Tacrolimus (FK506), Blood 6.8 ng/mL (5.0-20.0)
== END 2025-01-24 07:36 | disposition home or self-care (01) ==
PROVIDERS: PCP Internal Medicine
DX: Z94.0 Kidney transplant status (principal); E10.65 Type 1 diabetes mellitus with hyperglycemia
CPT/HCPCS: 36415; 80061; 80069; 80197; 82570; 84156; 85025